=== PATIENT | female | born 1960 | race Caucasian/White ===

== ENCOUNTER 2020-01-31 07:09 | Day surgery (SDC) | payer MEDICAID, SELFPAY ==
[2020-01-24 11:15] VITALS: BMI 33.6
--- NOTE | 2020-01-30 10:32 | P.CONAN_ITS ---
Documented by User: Tonja Rajan 01/30/20 10:37 HPI - Anesthesia Eval Consult details Narrative: 59yo F for colonoscopy PMFSH Past Medical History Medical History Anemia Arthritis Asthma Depression Difficulty swallowing Elevated cholesterol GERD (gastroesophageal reflux disease) Hepatitis History of blood transfusion HIV (human immunodeficiency virus infection) HTN (hypertension) Hx of renal calculi Sleep apnea Surgical History Surgical History Hx of section Hx of cholecystectomy Hx of colonoscopy Hx of dilation and curettage Hx of reduction mammoplasty Hx of tubal ligation Social History Social History Smoking Status: Former smoker Smoking Quit Date: age 39 Use of substances other than those prescribed or required for medical reasons: No Advance Directives Information Provided: No Recently lost weight without trying: No Meds Allergies Allergy/AdvReac Type Severity Reaction Status Date / Time shellfish derived Allergy Unknown HIVES, N/V Unverified 01/04/20 17:01 Home Medications Medication Instructions Recorded Confirmed Type albuterol sulfate 2.5 mg INHALATION Q4-6H PRN 01/24/20 01/24/20 History bisacodyl [Dulcolax (bisacodyl)] 10 mg PO BID 01/24/20 01/24/20 History citalopram 20 mg PO DAILY 01/24/20 01/24/20 History krywxhd-can-dqijr-tenof alafen 1 tab PO QPM 01/24/20 01/24/20 History [Genvoya] fluticasone propionate [Flovent 1 puff INHALATION BID 01/24/20 01/24/20 History HFA] gabapentin 300 mg PO TID 01/24/20 01/24/20 History linaclotide [Linzess] 145 mcg PO QAM 01/24/20 01/24/20 History lisinopril 5 mg PO DAILY 01/24/20 01/24/20 History omeprazole [Prilosec] 20 mg PO DAILY 01/24/20 01/24/20 History rosuvastatin [Crestor] 20 mg PO DAILY 01/24/20 01/24/20 History tizanidine 4 mg PO Q8H PRN 01/24/20 01/24/20 History Exam Exam Date and Time: January 30, 2020 1032 Height,Weight and Vital Signs: Height 5 ft 2 in Weight 83.461 kg Pertinent Lab Results Pertinent Lab Results: Laboratory Tests 08/18/19 08/18/19 11:15 11:15 WBC 4.0 L Hgb 11.4 L Hct 35.2 L Plt Count 176 Sodium 142 Potassium 3.3 Chloride 108 BUN 20 H Creatinine 0.85 Laboratory Tests 08/18/19 11:15 Total Lymphocytes 1326 % CD3 Cells 66 Absolute CD3 Count 871 % CD4 Cells 20 L Absolute CD4 Count 270 L T-Lymph CD4/CD8 Ratio 0.43 L % CD8 Cells 48 H Absolute CD8 Count 634 Assessment and Plan Assessment Anesthesia Assessment: Chart Reviewed Documented by User: Srinivas Chung 01/31/20 09:29 [facility] Past Medical History Medical History Anemia Arthritis Asthma Depression Difficulty swallowing Elevated cholesterol GERD (gastroesophageal reflux disease) Hepatitis History of blood transfusion HIV (human immunodeficiency virus infection) HTN (hypertension) Hx of renal calculi Sleep apnea Surgical History Surgical History Hx of section Hx of cholecystectomy Hx of colonoscopy Hx of dilation and curettage Hx of reduction mammoplasty Hx of tubal ligation Social History Social History Smoking Status: Former smoker Smoking Quit Date: age 39 Use of substances other than those prescribed or required for medical reasons: No Advance Directives Information Provided: No Recently lost weight without trying: No Meds Allergies Allergy/AdvReac Type Severity Reaction Status Date / Time shellfish derived Allergy Unknown HIVES, N/V Unverified 01/04/20 17:01 Home Medications Medication Instructions Recorded Confirmed Type albuterol sulfate 2.5 mg INHALATION Q4-6H PRN 01/24/20 01/24/20 History bisacodyl [Dulcolax (bisacodyl)] 10 mg PO BID 01/24/20 01/24/20 History citalopram 20 mg PO DAILY 01/24/20 01/24/20 History wxciciy-hbo-dmcai-tenof alafen 1 tab PO QPM 01/24/20 01/24/20 History [Genvoya] fluticasone propionate [Flovent 1 puff INHALATION BID 01/24/20 01/24/20 History HFA] gabapentin 300 mg PO TID 01/24/20 01/24/20 History linaclotide [Linzess] 145 mcg PO QAM 01/24/20 01/24/20 History lisinopril 5 mg PO DAILY 01/24/20 01/24/20 History omeprazole [Prilosec] 20 mg PO DAILY 01/24/20 01/24/20 History rosuvastatin [Crestor] 20 mg PO DAILY 01/24/20 01/24/20 History tizanidine 4 mg PO Q8H PRN 01/24/20 01/24/20 History Exam Airway Mallampati Class: II TM Dist: >3cm Neck ROM: Full Loose/Missing/Broken Teeth: Yes Heart: RRR Assessment and Plan Assessment Anesthesia Assessment: Anesthesia Plan Discussed Final Anesthetic Review NPO: Yes ASA Class: II and III Anesthetic Plan Anesthetic Plan: MAC:
[2020-01-31 08:10] VITALS: BP 122/62; PULSE 61; RESP 18; TEMP 36.7; O2SAT 96
[2020-01-31] MEDS: Lactated Ringers 1,000 ML 100 ML IVCONT (08:43)
[2020-01-31] MEDS: Sodium Phosphate,Mono-Dibasic 133 ML ENEMA PR (08:44)
--- NOTE | 2020-01-31 09:20 | MHC.SHP ---
Pre-Procedural Eval Section B Chief Complaint: Adenomatous Polyp of Colon Relevant Family History (Specify if Yes): No Relevant Social History: Other (specify) (ex drug abuse) Present Medications: see Short Stay Collaborative assessment Medical History: Significant History (HIV, Hep C, high cholesterol, HTN, ANISH, asthma, back pain) History of Previous Operations: Relevant previous surgery/procedure and date(s) (cholecystectomy) Allergies: Allergies Allergy/AdvReac Type Severity Reaction Status Date / Time shellfish derived Allergy Unknown HIVES, N/V Unverified 01/04/20 17:01 Review of Systems Sugical H&P ROS: Negative: Constitution, Cardiovascular, Respiratory, Neurological, Psychiatric, Hem-Onc, Allergic/Immunologic, Gastrointestinal, Genitourinary, Musculoskeletal, Integumentary, Endocrine and Eyes/Ears/Nose/Throat Exam Surgical H&P Exam: Normal: HEENT, Normal: Heart, Normal: Lungs, Normal: Extremities, Normal: Abdomen, Normal: Skin and Normal: Neurological Plan Diagnosis/Plan: Unchanged Patient has been examined and remains a candidate for the planned procedure
--- NOTE | 2020-01-31 09:38 | P.BOP_ITS ---
Brief Operative Note Date of procedure: 01/31/20 Pre-op diagnosis: hx of polyps Post-op diagnosis: same Procedure: Operative Information Procedure Description: Colonoscopy COLONOSCOPY Instrument: Olympus variable stiffness pediatric scope 190L Colonoscopy Monitoring: Vital signs and clinical assessment, continuous EKG monitoring, Pulse oximetry, Carbon Dioxide monitoring and blood pressure monitoring were done throughout the procedure. Colon withdrawal time was 20 minutes. Procedure: The patient was placed in the left lateral decubitis position and pre-procedure medications were administered. After a digital rectal examination of the ano-rectum, the video colonoscope was inserted into the rectum and advanced through the colon to the cecum/TI. The colonoscope was slowly withdrawn in a retrograde panoramic fashion and the colon mucosa was carefully examined including a retroflexed view of the rectum. Findings and interventions are described below. Procedure Difficulty: Findings: Terminal Ileum-normal Cecum:normal Ascending Colon: 10 mm sessile polyp removed with cold snare Transverse Colon -normal Descending Colon:normal Sigmoid Colon: 10-12 mm sessile polyp removed with cold snare Rectum: Retroflexion with moderate sized internal hemorrhoids, grade I Anorectum - normal Colon preparation: [place] Bowel Preparation Scale Right colon; 2 Transverse colon: 1 Left colon; 0 (0 = Unprepared colon segment with mucosa not seen due to solid stool that cannot be cleared. 1 = Portion of mucosa of the colon segment seen, but other areas of the colon segment not well seen due to staining, residual stool and/or opaque liquid. 2 = Minor amount of residual staining, small fragments of stool and/or opaque liquid, but mucosa of colon segment seen well. 3 = Entire mucosa of colon segment seen well with no residual staining, small fragments of stool or opaque liquid) Impression and Post Procedure Diagnosis: internal hemorrhoids polyps poor prep Plan: High fiber diet leaflet Avoid straining at stool, epsom salts and sitz bath prn, anusol supps or cream prn Repeat Colonoscopy in 6-12 months due to prep, needs to be complaint with diet next time Above findings were reviewed with the patient and relevant handouts were provided if indicated. Surgeon: Lavern Crouch MD Anesthesia: MAC Disposition: PACU
[2020-01-31 10:17] VITALS: BP 109/60; PULSE 64; RESP 16; TEMP 37.4; O2SAT 96
[2020-01-31 10:31] VITALS: BP 101/50; PULSE 58; RESP 14; O2SAT 95
[2020-01-31 10:46] VITALS: BP 111/60; PULSE 73; RESP 14; TEMP 37.4; O2SAT 98
--- NOTE | 2020-01-31 11:39 | HO.POSTANES ---
Post Anesthesia Evaluation Post Anesthesia Evaluation Vital Signs: Vital Signs Temp Pulse Resp BP Pulse Ox 01/31/20 10:46 99.3 F 73 14 111/60 98 01/31/20 10:31 58 14 101/50 L 95 01/31/20 10:17 99.3 F 64 16 109/60 96 01/31/20 08:10 98.0 F 61 18 122/62 96 Anesthesia: Monitored Mental Status: Awake Pain Control: Satisfactory Nausea/Vomiting: None Hydration: Adequate Anesthesia-Related Issues: No Anes. Related Issues
== END 2020-01-31 11:42 | disposition home or self-care (01) ==
PROVIDERS: PCP Internal Medicine; Visit Provider Internal Medicine Gastroenterology
PROC: 0DJD8ZZ Inspection of Lower Intestinal Tract, Via Natural or Artificial Opening Endoscopic (ICD-10-PCS; CPT 45378; principal; 2020-01-31 09:20)
DX: Z12.11 Encounter for screening for malignant neoplasm of colon (principal); Z86.010 Personal history of colon polyps; D12.2 Benign neoplasm of ascending colon; D12.5 Benign neoplasm of sigmoid colon; K64.0 First degree hemorrhoids; K21.9 Gastro-esophageal reflux disease without esophagitis; I10 Essential (primary) hypertension; B19.20 Unspecified viral hepatitis C without hepatic coma; Z21 Asymptomatic human immunodeficiency virus [HIV] infection status; G47.33 Obstructive sleep apnea (adult) (pediatric); J45.909 Unspecified asthma, uncomplicated; Z87.891 Personal history of nicotine dependence; E78.00 Pure hypercholesterolemia, unspecified; Z90.49 Acquired absence of other specified parts of digestive tract; Z98.51 Tubal ligation status; Z79.51 Long term (current) use of inhaled steroids; Z79.899 Other long term (current) drug therapy; Z91.013 Allergy to seafood
CPT/HCPCS: 45385; 88305

== ENCOUNTER → 2020-02-12 10:30 | Outpatient (BNVA) | payer MEDICAID, SELFPAY | PROVIDERS: PCP Internal Medicine; Referring Provider Internal Medicine; Visit Provider Nurse Practitioner | DX: K63.5 Polyp of colon (principal); K21.9 Gastro-esophageal reflux disease without esophagitis; K59.04 Chronic idiopathic constipation | CPT/HCPCS: 99213 ==

== ENCOUNTER 2020-03-08 08:22 | Outpatient (REF) | payer MEDICAID, SELFPAY ==
--- NOTE | 2020-03-08 08:31 | MM_ITS ---
EXAMINATION: MM SCREENING DIGITAL BREAST TOMOSYNTHESIS, BILATERAL CLINICAL INFORMATION: Screening. Asymptomatic. Prior history breast reduction. The lifetime risk of breast cancer based on the Tyrer-Cuzick Model is 7%. COMPARISON: Mammography: 02/09/2019, 12/01/2017, 11/18/2016, 10/22/2015 TECHNIQUE: Digital breast tomosynthesis is performed in both the craniocaudal and mediolateral oblique views along with computer-aided detection (CAD). Synthesized 2D images are generated from the tomosynthesis. Additional left MLO view is provided. FINDINGS: There are scattered areas of fibroglandular density (ACR BI-RADS breast composition Category b). Parenchymal pattern is similar to prior studies. There is no developing density or interval mass or architectural abnormality. No abnormal calcifications. Some minor scarring is suggested outer breast likely related to the reduction mammoplasty. The axilla and skin contours are unremarkable. No significant changes. MM/MM tomosynthesis screening BI IMPRESSION: No mammographic evidence of malignancy. ASSESSMENT: BI-RADS 2: Benign RECOMMENDATION: Routine annual mammography screening. This patient's information was entered into a reminder system with a target due date for their next mammogram.
== END 2020-03-08 08:23 | disposition home or self-care (01) ==
LOC: HO.MAMMO 08:22
PROVIDERS: PCP Internal Medicine; Visit Provider Internal Medicine
DX: Z12.31 Encounter for screening mammogram for malignant neoplasm of breast (principal)
CPT/HCPCS: 77063; 77067

== ENCOUNTER 2020-04-24 10:21 | Outpatient (REF) | payer MEDICAID, SELFPAY ==
[2020-04-24 11:04] LABS: MANUAL DIFF FLAG NO
[2020-04-24 11:13] LABS: Basophils Percent Auto 0.2 % (0-2); Eosinophils Absolute Auto 0.1 X10*3/uL (0.0-0.4); Hematocrit 34.2 % (37-47); Hemoglobin 10.7 g/dl (12.0-16.0); Imm Gran Abs Auto 0.01 X10*3/uL (0.00-0.03); Imm Gran Pct Auto 0.2 % (0.0-0.4); Lymphocytes Absolute Auto 1.7 X10*3/uL (1.2-4.9); Lymphocytes Percent Auto 35.5 % (20-40); Mean Corpuscular HGB Conc 31.3 g/dl (31.0-35.0); Mean Corpuscular Hemoglobin 28.2 pg (27.0-33.0); Mean Platelet Volume 11.3 fL (9.4-12.3); Monocytes Absolute Auto 0.4 X10*3/uL (0.1-1.2); Monocytes Percent Auto 8.2 % (2-11); Neutrophils Absolute Auto 2.5 X10*3/uL (2.0-8.3); Neutrophils Percent Auto 52.9 % (45-73); Platelet Count 173 X10*3/uL (160-400); Red Cell Distribution Width 12.5 % (11.0-16.0); White Blood Count 4.7 X10*3/uL (4.8-10.8)
[2020-04-24 12:00] LABS: Alanine Aminotransferase 10 U/L (0-31); Albumin Level 3.7 g/dL (3.5-5.0); Alkaline Phosphatase 68 U/L (39-117); Anion Gap 12 (12-20); Aspartate Amino Transferase 17 U/L (5-31); Bilirubin Total 0.3 mg/dL (0.0-1.0); Blood Urea Nitrogen 19 mg/dL (9-16); Calcium 8.8 mg/dL (8.4-10.2); Carbon Dioxide 28 mmol/L (22-29); Chloride 106 mmol/L (96-108); Cholesterol 152 mg/dL; Estimated Glomerular Filt Rate 58; Glucose Random 78 mg/dL (60-115); HDL Cholesterol 56 mg/dL; LDL Cholesterol Calculated 72 mg/dl; Potassium 4.6 mmol/l (3.3-5.1); Sodium 141 mmol/L (135-145); Total Protein 7.5 g/dL (6.5-8.0); Triglycerides 122 mg/dL
[2020-04-24 12:07] LABS: Thyroid Stimulating Hormone 2.13 uIU/mL (0.32-4.0)
== END 2020-04-24 10:22 | disposition home or self-care (01) ==
LOC: HO.LAB 10:21
PROVIDERS: PCP Internal Medicine; Visit Provider Internal Medicine
DX: Z00.00 Encounter for general adult medical examination without abnormal findings (principal); E78.00 Pure hypercholesterolemia, unspecified; J45.909 Unspecified asthma, uncomplicated; K62.89 Other specified diseases of anus and rectum; R10.2 Pelvic and perineal pain
CPT/HCPCS: 36415; 80053; 80061; 84443; 85025; 87086; 87088; 87186

== ENCOUNTER 2020-06-12 08:33 | Outpatient (REF) | payer MEDICAID, SELFPAY ==
[2020-06-12 09:41] LABS: Rheumatoid Factor < 15.0 IU/mL (<15.0)
[2020-06-12 10:21] LABS: Erythrocyte Sedimentation Rate 26 MM/HR (0-20)
[2020-06-13 13:26] LABS: Cyclic Citrullinated Peptide <16 UNITS
[2020-06-13 15:01] LABS: Anti Nuclear Antibody Screen NEGATIVE (NEGATIVE)
[2020-06-19 12:22] LABS: HCV Log PCR <1.18 NOT DETECTED; HepC Viral Load <15 NOT DETECTED
== END 2020-06-12 08:34 | disposition home or self-care (01) ==
LOC: HO.LAB 08:33
PROVIDERS: PCP Internal Medicine; Visit Provider Internal Medicine
DX: B18.2 Chronic viral hepatitis C (principal); M25.50 Pain in unspecified joint; M79.10 Myalgia, unspecified site
CPT/HCPCS: 36415; 82550; 85652; 86038; 86039; 86200; 86431; 87522

== ENCOUNTER 2020-07-24 12:18 | Outpatient (REF) | payer MEDICAID, SELFPAY ==
--- NOTE | ~2020-07-24 | XR_ITS ---
EXAMINATION: BILATERAL HAND X-RAY CLINICAL INFORMATION: Osteoarthritis COMPARISON: None TECHNIQUE: 3 views of each hand FINDINGS: Bone alignment is normal. No fracture or dislocation is seen. There is mild arthritis at the first ASSISTED joints with small osteophytes. Joint spaces are otherwise normal. Soft tissues are normal. XR/XR hand LT min 3V IMPRESSION: Mild bilateral osteoarthritis at the first ASSISTED joints.
--- NOTE | ~2020-07-24 | XR_ITS ---
EXAMINATION: BILATERAL HAND X-RAY CLINICAL INFORMATION: Osteoarthritis COMPARISON: None TECHNIQUE: 3 views of each hand FINDINGS: Bone alignment is normal. No fracture or dislocation is seen. There is mild arthritis at the first FCI joints with small osteophytes. Joint spaces are otherwise normal. Soft tissues are normal. XR/XR hand RT min 3V IMPRESSION: Mild bilateral osteoarthritis at the first FCI joints.
== END 2020-07-24 12:19 | disposition home or self-care (01) ==
LOC: HO.XRAY 12:18
PROVIDERS: PCP Internal Medicine; Visit Provider Student in an Organized Health Care Education/Training Program
DX: M19.042 Primary osteoarthritis, left hand (principal); M19.041 Primary osteoarthritis, right hand
CPT/HCPCS: 73130; 99202

== ENCOUNTER 2020-10-08 08:41 | Outpatient (REF) | payer MEDICAID, SELFPAY ==
[2020-10-08 09:23] LABS: MANUAL DIFF FLAG NO
[2020-10-08 09:40] LABS: Basophils Percent Auto 0.2 % (0-2); Eosinophils Absolute Auto 0.1 X10*3/uL (0.0-0.4); Eosinophils Percent Auto 1.6 % (0-4); Hematocrit 40.1 % (37-47); Hemoglobin 12.9 g/dl (12.0-16.0); Imm Gran Abs Auto 0.02 X10*3/uL (0.00-0.03); Imm Gran Pct Auto 0.5 % (0.0-0.4); Lymphocytes Absolute Auto 1.4 X10*3/uL (1.2-4.9); Lymphocytes Percent Auto 30.8 % (20-40); Mean Corpuscular HGB Conc 32.2 g/dl (31.0-35.0); Mean Corpuscular Hemoglobin 28.5 pg (27.0-33.0); Mean Corpuscular Volume 88.5 fL (80-98); Monocytes Absolute Auto 0.2 X10*3/uL (0.1-1.2); Monocytes Percent Auto 4.8 % (2-11); Neutrophils Absolute Auto 2.7 X10*3/uL (2.0-8.3); Neutrophils Percent Auto 62.1 % (45-73); Platelet Count 197 X10*3/uL (160-400); Red Blood Count 4.53 X10*6/uL (4.20-5.50); Red Cell Distribution Width 14.1 % (11.0-16.0); White Blood Count 4.4 X10*3/uL (4.8-10.8)
[2020-10-08 10:11] LABS: Alanine Aminotransferase 17 U/L (0-31); Albumin Level 3.9 g/dL (3.5-5.0); Alkaline Phosphatase 79 U/L (39-117); Anion Gap 14 (12-20); Aspartate Amino Transferase 21 U/L (5-31); Bilirubin Total 0.4 mg/dL (0.0-1.0); Blood Urea Nitrogen 26 mg/dL (9-16); Calcium 9.5 mg/dL (8.4-10.2); Carbon Dioxide 24 mmol/L (22-29); Chloride 105 mmol/L (96-108); Cholesterol 218 mg/dL; Estimated Glomerular Filt Rate 50; Glucose Random 135 mg/dL (60-115); HDL Cholesterol 59 mg/dL; LDL Cholesterol Calculated 133 mg/dl; Potassium 4.2 mmol/L (3.3-5.1); Sodium 139 mmol/L (135-145); Total Protein 7.8 g/dL (6.5-8.0); Triglycerides 133 mg/dL
== END 2020-10-08 08:42 | disposition home or self-care (01) ==
LOC: HO.LAB 08:41
PROVIDERS: PCP Internal Medicine; Visit Provider Internal Medicine
DX: E78.00 Pure hypercholesterolemia, unspecified (principal); F33.42 Major depressive disorder, recurrent, in full remission; I10 Essential (primary) hypertension; R30.0 Dysuria
CPT/HCPCS: 36415; 80053; 80061; 85025; 87086; 87088; 87186

== ENCOUNTER 2020-10-08 09:20 | Emergency (ER) | payer MEDICAID, SELFPAY ==
[2020-10-08 09:26] VITALS: BP 132/73; PULSE 69; RESP 16; TEMP 36.7; O2SAT 98; BMI 32.9
--- NOTE | 2020-10-08 12:14 | ECG_ITS ---
Test Reason : ABDOMINAL PAIN Blood Pressure : / mmHG Vent. Rate : 055 BPM Atrial Rate : 055 BPM P-R Int : 172 ms QRS Dur : 088 ms QT Int : 440 ms P-R-T Axes : 057 -45 045 degrees QTc Int : 420 ms Sinus bradycardia Left anterior fascicular block Abnormal ECG When compared with ECG of 14-MAY-2017 11:35, No significant change was found Referred By: Rhiannon Pedraza Electronically Signed By:Dain Bill
--- NOTE | 2020-10-08 12:14 | ED_ITS ---
HPI - Abdominal Pain General Chief Complaint: Abdominal Pain Stated Complaint: abd pain Time Seen by Provider: 10/08/20 12:04 Source: patient Mode of arrival: ambulatory Limitations: no limitations History of Present Illness HPI narrative: 60 y/o female with history of HIV on HAART with undetectable vital load, constipation, GERD, OA, vaginal bleeding s/p recent biopsy who presents to the ER with lower abdominal pain, suprapubic pain and dysuria for the last 4 days. She has had chills at home and felt unwell. Her appetite has been poor but she has not had any N/V/D. Normal BM today. No vaginal bleeding or discharge. Not currently sexually active. No blood in her urine and no back pain. She reports increased frequency wtih dribbling. Symptoms are similar to when she previously had a UTI. She also has epigastric burning that radiates up into her chest. She no SOB. MD elicited complaint: abdominal pain Pertinent past history: constipation Onset (ago): day(s) (4) Pain Consistency: constant Location: suprapubic Severity: moderate Quality: aching and burning Radiation: none Migration to: no migration Exacerbating factors: nothing Relieving factors: nothing Context: history of similar episodes Associated symptoms: chills and dysuria Related Data Home Medications Medication Instructions Recorded Confirmed albuterol sulfate 2.5 mg INHALATION Q4-6H PRN 01/24/20 01/24/20 bisacodyl [Dulcolax (bisacodyl)] 10 mg PO BID 01/24/20 01/24/20 citalopram 20 mg PO DAILY 01/24/20 01/24/20 jrpjlmt-uhm-ejpgy-tenof alafen 1 tab PO QPM 01/24/20 01/24/20 [Genvoya] fluticasone propionate [Flovent 1 puff INHALATION BID 01/24/20 01/24/20 HFA] gabapentin 300 mg PO TID 01/24/20 01/24/20 linaclotide [Linzess] 145 mcg PO QAM 01/24/20 01/24/20 lisinopril 5 mg PO DAILY 01/24/20 01/24/20 omeprazole [Prilosec] 20 mg PO DAILY 01/24/20 01/24/20 rosuvastatin [Crestor] 20 mg PO DAILY 01/24/20 01/24/20 tizanidine 4 mg PO Q8H PRN 01/24/20 01/24/20 Previous Rx's Medication Instructions Recorded cefuroxime axetil 250 mg PO BID #14 tab 10/08/20 phenazopyridine [Pyridium] 100 mg PO TID PRN #5 tab 10/08/20 Allergies Allergy/AdvReac Type Severity Reaction Status Date / Time shellfish derived Allergy Intermediate HIVES, N/V Verified 07/24/20 12:36 Review of Systems Review of Systems Constitutional: No Fever, No Chills ENT/Mouth: No sore throat, No Rhinorrhea, No Swallowing Difficulty Cardiovascular: + Chest Pain, No SOB, No Orthopnea, No Edema Respiratory: No Cough, No Sputum, No Wheezing, No dyspnea Gastrointestinal: No Nausea, No Vomiting, No Diarrhea, + abdominal Pain Genitourinary: + Dysuria, + Urinary Frequency, No Hematuria Musculoskeletal: No joint pain, No Myalgias Skin: No Skin Lesions, No rash Neuro: + Weakness, No Numbness, No Dizziness, No Headache Psych: No Anxiety/Panic, No Depression Heme/Lymph: No Bruising, No Lymphadenopathy Endocrine: No Polyuria, No Polydipsia Physical Exam Vital Signs: Vital Signs: Last Vital Signs Temp 97.8 F 10/08/20 14:28 Pulse 58 10/08/20 14:28 Resp 14 10/08/20 14:28 BP 104/58 L 10/08/20 14:28 Pulse Ox 100 10/08/20 14:28 Body Mass Index 32.9 Appearance: Alert. Oriented X3. No acute distress. Eyes: Pupils equal, round and reactive to light. ENT: Pharynx normal. Neck: Normal inspection. Neck supple. CVS: Normal heart rate and rhythm. Pulses normal. Respiratory: No respiratory distress. Breath sounds normal. Abdomen: Soft with suprapubic tenderness, no reboudn or guarding. +BS x4 Skin: Skin warm and dry. Normal skin color. Normal skin turgor. No rashes. Extremities: No lower extremity edema. Neuro: Oriented X 3. No motor deficit. No sensory deficit. Course Course Course Narrative: 60 y/o female presenting with signs and symptoms of UTI without fever, back pain or vomiting. Doubt pyelonephritis. She appears well, non-toxic with normal VS. Will get lab workup and UA. Hold off on imaging for now. Given GI cocktail for acid reflux. Doubt cardiac etiology of her epiastric/chest pain. Will reassess Reevaluation(s) Reevaluation #1: Labs are normal. UA ++ for infection. Will treat with Ceftin and Pyridium. She is stable for discharge home with stated regimen and outpatient follow up. She is agreeable with plan and return to the ER if symptoms worsen. MDM - Abdominal Pain Medical Records Attestation: I reviewed the patient's medical records. Lab Data Attestation: I reviewed the patient's lab results. Result diagrams: 10/08/20 13:00 10/08/20 13:00 Labs: Lab Results 10/08/20 10/08/20 10/08/20 Range/Units 13:00 13:00 13:00 WBC 4.8 (4.8-10.8) X10*3/uL RBC 4.52 (4.20-5.50) X10*6/uL Hgb 12.8 (12.0-16.0) g/dl Hct 39.5 (37-47) % MCV 87.4 (80-98) fL MCH 28.3 (27.0-33.0) pg MCHC 32.4 (31.0-35.0) g/dl RDW 14.1 (11.0-16.0) % Plt Count 186 (160-400) X10*3/uL MPV 10.8 (9.4-12.3) fL Immature Gran % (Auto) 0.4 (0.0-0.4) % Neut % (Auto) 61.7 (45-73) % Lymph % (Auto) 28.2 (20-40) % Amelia % (Auto) 8.4 (2-11) % Eos % (Auto) 1.1 (0-4) % Baso % (Auto) 0.2 (0-2) % Lymph # (Auto) 1.3 (1.2-4.9) X10*3/uL Amelia # (Auto) 0.4 (0.1-1.2) X10*3/uL Eos # (Auto) 0.1 (0.0-0.4) X10*3/uL Baso # (Auto) 0.0 (0.0-0.2) X10*3/uL Abs Immat Gran (auto) 0.02 (0.00-0.03) X10*3/uL Absolute Neuts (auto) 2.9 (2.0-8.3) X10*3/uL Absolute Nucleated RBC 0.000 (0.0-0.012) X10*3/uL Nucleated RBC % (auto) 0.0 (0.0-0.2) /100WBC Sodium 139 (135-145) mmol/L Potassium 4.7 (3.3-5.1) mmol/L Chloride 105 (96-108) mmol/L Carbon Dioxide 28 (22-29) mmol/L Anion Gap 11 L (12-20) BUN 25 H (9-16) mg/dL Creatinine 0.97 (0.5-1.4) mg/dL Estim Creat Clear Calc 64.3 Estimated GFR 59 Random Glucose 85 D (60-115) mg/dL Calcium 9.3 (8.4-10.2) mg/dL Troponin I High Sens < 3.5 (<3.5-17.0) ng/L Urine Color Urine Appearance Urine pH (5.0-8.0) Ur Specific [place] (1.005-1.025) Urine Protein (NEG-TRACE) MG/DL Urine Glucose (UA) (NEG) MG/DL Urine Ketones (NEG) MG/DL Urine Blood (NEG) Urine Nitrite (NEG) Ur Leukocyte Esterase (NEG) Urine RBC (0) /HPF Urine WBC (0-4) /HPF Ur Squamous Epith Cells /LPF Urine Bacteria /LPF 10/08/20 Range/Units 13:03 WBC (4.8-10.8) X10*3/uL RBC (4.20-5.50) X10*6/uL Hgb (12.0-16.0) g/dl Hct (37-47) % MCV (80-98) fL MCH (27.0-33.0) pg MCHC (31.0-35.0) g/dl RDW (11.0-16.0) % Plt Count (160-400) X10*3/uL MPV (9.4-12.3) fL Immature Gran % (Auto) (0.0-0.4) % Neut % (Auto) (45-73) % Lymph % (Auto) (20-40) % Amelia % (Auto) (2-11) % Eos % (Auto) (0-4) % Baso % (Auto) (0-2) % Lymph # (Auto) (1.2-4.9) X10*3/uL Amelia # (Auto) (0.1-1.2) X10*3/uL Eos # (Auto) (0.0-0.4) X10*3/uL Baso # (Auto) (0.0-0.2) X10*3/uL Abs Immat Gran (auto) (0.00-0.03) X10*3/uL Absolute Neuts (auto) (2.0-8.3) X10*3/uL Absolute Nucleated RBC (0.0-0.012) X10*3/uL Nucleated RBC % (auto) (0.0-0.2) /100WBC Sodium (135-145) mmol/L Potassium (3.3-5.1) mmol/L Chloride (96-108) mmol/L Carbon Dioxide (22-29) mmol/L Anion Gap (12-20) BUN (9-16) mg/dL Creatinine (0.5-1.4) mg/dL Estim Creat Clear Calc Estimated GFR Random Glucose (60-115) mg/dL Calcium (8.4-10.2) mg/dL Troponin I High Sens (<3.5-17.0) ng/L Urine Color YELLOW Urine Appearance CLOUDY Urine pH 6.0 (5.0-8.0) Ur Specific [place] 1.010 (1.005-1.025) Urine Protein TRACE (NEG-TRACE) MG/DL Urine Glucose (UA) NEG (NEG) MG/DL Urine Ketones NEG (NEG) MG/DL Urine Blood TRACE (NEG) Urine Nitrite NEG (NEG) Ur Leukocyte Esterase 3+ H (NEG) Urine RBC 1-4 (0) /HPF Urine WBC 15-29 H (0-4) /HPF Ur Squamous Epith Cells 3+ /LPF Urine Bacteria 2+ /LPF ECG Data Attestation: I personally reviewed and interpreted this ECG as follows: ECG interpretation date: 10/08/20 ECG interpretation time: 15:05 Prior ECG tracings: not available for review Interpretation: sinus bradycardia, left anterior fascicular block, HR 55 bpm, no ST segment elevations Critical Care Time Critical Care Time Critical Care Time: No Discharge Plan Discharge Clinical Impression: Acute UTI Patient Disposition: Home, Self-Care Instructions: Urinary Tract Infection in Women (ED) Additional Instructions: Your lab workup today was normal. Your urine test showed infection and you are being started on antibiotic for this. Do not have an sexual relations until all of your symptoms are gone and you are all done with antibiotic course. Follow up with your doctor this week. If you have worsening symptoms or develop fevers, vomiting or severe back pain come back to the ER for further evaluation. Tu examen de laboratorio de hoy fue normal. Jaeger an?lisis de orina mostr? infecci?n y est? comenzando a yasir antibi?ticos para esto. No tenga relaciones sexuales hasta que todos gloria s?ntomas hayan desaparecido y haya terminado con el tratamiento con antibi?ticos. Sae un seguimiento con jaeger m?dico esta semana. Si tiene s?ntomas que empeoran o tiene fiebre, v?mitos o dolor de espalda mony, regrese a la montserrat de emergencias para astrid evaluaci?n adicional. Prescriptions: New cefuroxime axetil 250 mg tablet 250 mg PO BID Qty: 14 RF: 0 phenazopyridine [Pyridium] 100 mg tablet 100 mg PO TID PRN (Reason: pain) Qty: 5 RF: 0 No Action albuterol sulfate 2.5 mg /3 mL (0.083 %) Solution For Nebulization 2.5 mg INHALATION Q4-6H PRN (Reason: Shortness Of Breath) RF: 0 citalopram 20 mg Tablet 20 mg PO DAILY RF: 0 omeprazole [Prilosec] 20 mg Capsule,Delayed Release(Dr/Ec) 20 mg PO DAILY RF: 0 bisacodyl [Dulcolax (bisacodyl)] 5 mg Tablet,Delayed Release (Dr/Ec) 10 mg PO BID RF: 0 lisinopril 5 mg Tablet 5 mg PO DAILY RF: 0 Flovent HFA 110 mcg/actuation Hfa Aerosol Inhaler 1 puff INHALATION BID RF: 0 rosuvastatin [Crestor] 20 mg Tablet 20 mg PO DAILY RF: 0 gabapentin 300 mg Tablet 300 mg PO TID RF: 0 tizanidine 4 mg Capsule 4 mg PO Q8H PRN (Reason: Muscle Spasm) RF: 0 Linzess 145 mcg Capsule 145 mcg PO QAM RF: 0 Genvoya [phone] mg Tablet 1 tab PO QPM RF: 0 PMFSH Past Medical History Attestation statement: The following information was validated with the patient. Medical History Anemia Arthritis Asthma Depression Difficulty swallowing Elevated cholesterol Hepatitis History of blood transfusion HIV (human immunodeficiency virus infection) HTN (hypertension) Hx of renal calculi Sleep apnea Surgical History Hx of section Hx of cholecystectomy Hx of colonoscopy Hx of dilation and curettage Hx of reduction mammoplasty Hx of tubal ligation Family History Family History Mother Breast cancer Father Heart problem Sister Bone cancer Family/Other Diabetes Social History Social History Alcohol intake: current Alcohol intake frequency: does not drink Advance Directives: Yes Advance Directives Information Provided: Yes Advance Directives on File: No Patient : No
[2020-10-08 12:51] VITALS: BP 122/57; PULSE 58; RESP 17; TEMP 36.3; O2SAT 100
[2020-10-08 13:10] LABS: MANUAL DIFF FLAG NO
[2020-10-08 13:17] LABS: Basophils Percent Auto 0.2 % (0-2); Eosinophils Absolute Auto 0.1 X10*3/uL (0.0-0.4); Eosinophils Percent Auto 1.1 % (0-4); Hematocrit 39.5 % (37-47); Hemoglobin 12.8 g/dl (12.0-16.0); Imm Gran Abs Auto 0.02 X10*3/uL (0.00-0.03); Imm Gran Pct Auto 0.4 % (0.0-0.4); Lymphocytes Absolute Auto 1.3 X10*3/uL (1.2-4.9); Lymphocytes Percent Auto 28.2 % (20-40); Mean Corpuscular HGB Conc 32.4 g/dl (31.0-35.0); Mean Corpuscular Hemoglobin 28.3 pg (27.0-33.0); Mean Corpuscular Volume 87.4 fL (80-98); Mean Platelet Volume 10.8 fL (9.4-12.3); Monocytes Absolute Auto 0.4 X10*3/uL (0.1-1.2); Monocytes Percent Auto 8.4 % (2-11); Neutrophils Absolute Auto 2.9 X10*3/uL (2.0-8.3); Neutrophils Percent Auto 61.7 % (45-73); Platelet Count 186 X10*3/uL (160-400); Red Blood Count 4.52 X10*6/uL (4.20-5.50); Red Cell Distribution Width 14.1 % (11.0-16.0); White Blood Count 4.8 X10*3/uL (4.8-10.8)
[2020-10-08 13:17] LABS: Glucose Urine UA NEG (NEG); Leukocyte Esterase Urine 3+ (NEG); Nitrite Urine NEG (NEG); UACC Culture Trigger YES; Urine Blood TRACE (NEG); Urine Ketones NEG (NEG); Urine Protein TRACE MG/DL (NEG-TRACE)
[2020-10-08 13:20] LABS: Appearance Urine CLOUDY; Color Urine YELLOW
[2020-10-08] MEDS: Lidocaine HCl Viscous 2 % 15 ML SOLUTION MUCOUS MEM (13:20)
[2020-10-08] MEDS: Magnesium Hydrox/Alum Hydrox 30 ML ORAL.SUSP PO (13:20)
[2020-10-08] MEDS: Omeprazole 40 MG CAPSULE.DR PO (13:20)
[2020-10-08 13:32] LABS: Bacteria Urine 2+ /LPF; Squamous Epithelial Cell Urine 3+ /LPF; UACC CULT YES
[2020-10-08 13:39] LABS: Anion Gap 11 (12-20); Blood Urea Nitrogen 25 mg/dL (9-16); Calcium 9.3 mg/dL (8.4-10.2); Carbon Dioxide 28 mmol/L (22-29); Chloride 105 mmol/L (96-108); Creatinine Clr Calc Pharmacy 64.3; Estimated Glomerular Filt Rate 59; Glucose Random 85 mg/dL (60-115); Potassium 4.7 mmol/L (3.3-5.1); Sodium 139 mmol/L (135-145)
[2020-10-08 13:48] LABS: Troponin-I High Sensitivity < 3.5 ng/L (<3.5-17.0)
[2020-10-08 14:28] VITALS: BP 104/58; PULSE 58; RESP 14; TEMP 36.6; O2SAT 100
[2020-10-08] MEDS: Phenazopyridine HCL 100 MG TABLET PO (15:24)
== END 2020-10-08 15:33 | disposition home or self-care (01) ==
PROVIDERS: Physician Assistant; Emergency Provider Emergency Medicine Emergency Medical Services; PCP Internal Medicine
DX: N39.0 Urinary tract infection, site not specified (principal); R07.9 Chest pain, unspecified; J45.909 Unspecified asthma, uncomplicated; Z21 Asymptomatic human immunodeficiency virus [HIV] infection status; I10 Essential (primary) hypertension; Z79.899 Other long term (current) drug therapy
CPT/HCPCS: 36415; 80048; 81001; 84484; 85025; 93005; 99283; 99285

== ENCOUNTER → 2020-10-24 09:00 | Outpatient (BNVA) | payer MEDICAID, SELFPAY | PROVIDERS: PCP Internal Medicine; Visit Provider Nurse Practitioner ==

== ENCOUNTER 2020-12-03 10:36 | Day surgery (SDC) | payer MEDICAID, SELFPAY ==
[2020-11-26 10:56] VITALS: BMI 33.6
--- NOTE | 2020-12-02 10:27 | P.CONAN_ITS ---
Documented by User: Tonja Rajan NP 12/02/20 10:28 HPI - Anesthesia Eval Consult details Narrative: 60yo F for Colonoscopy Last colo 01/2020 with [facility] Active Problems Active Problems: All Active Problems (Updated 10/09/20 @ 00:01 by Mary Grace Villalta) GERD (gastroesophageal reflux disease) (Acute) Serrated polyp of colon (Acute) Chronic idiopathic constipation (Acute) Primary osteoarthritis of hands, bilateral (Acute) Hx of colonoscopy (Acute) Past Medical History Medical History Anemia Arthritis Asthma Depression Difficulty swallowing Elevated cholesterol Hepatitis History of blood transfusion HIV (human immunodeficiency virus infection) HTN (hypertension) Hx of renal calculi Sleep apnea Family History Family History Mother Breast cancer Father Heart problem Sister Bone cancer Family/Other Diabetes Surgical History Surgical History Hx of section Hx of cholecystectomy Hx of colonoscopy Hx of dilation and curettage Hx of reduction mammoplasty Hx of tubal ligation Social History Social History Alcohol intake: current Alcohol intake frequency: does not drink Patient Tobacco Use Status: Never used Tobacco Second Hand Smoke Exposure: No Use of substances other than those prescribed or required for medical reasons: No Are you DNR?: No Advance Directives: No Advance Directives Information Provided: Yes Advance Directives on File: No Meds Allergies Allergy/AdvReac Type Severity Reaction Status Date / Time shellfish derived Allergy Intermediate HIVES, N/V Verified 10/24/20 09:01 Home Medications Medication Instructions Recorded Confirmed Last Taken Type albuterol sulfate 2.5 mg INHALATION Q4-6H PRN 01/24/20 01/24/20 Unknown History bisacodyl 5 mg tablet,delayed 10 mg PO BID 01/24/20 01/24/20 Unknown History release (Dulcolax (bisacodyl)) citalopram 20 mg tablet 20 mg PO DAILY 01/24/20 01/24/20 Unknown History elviteg 150 mg-cob 150 mg-emtricit 1 tab PO QPM 01/24/20 01/24/20 Unknown History 200 mg-tenofo alafenam 10 mg tablet (Genvoya) fluticasone propionate 110 1 puff INHALATION BID 01/24/20 01/24/20 Unknown History mcg/actuation HFA aerosol inhaler (Flovent HFA) gabapentin 300 mg tablet 300 mg PO TID 01/24/20 01/24/20 Unknown History linaclotide 145 mcg capsule 145 mcg PO QAM 01/24/20 01/24/20 Unknown History (Linzess) lisinopril 5 mg tablet 5 mg PO DAILY 01/24/20 01/24/20 Unknown History omeprazole 20 mg capsule,delayed 20 mg PO DAILY 01/24/20 01/24/20 Unknown History release rosuvastatin 20 mg tablet (Crestor) 20 mg PO DAILY 01/24/20 01/24/20 Unknown History tizanidine 4 mg capsule 4 mg PO Q8H PRN 01/24/20 01/24/20 Unknown History Exam Exam Date and Time: December 02, 2020 1027 Height,Weight and Vital Signs: Height 5 ft 2 in Weight 83.461 kg Pertinent Lab Results Pertinent Lab Results: Laboratory Tests 08/18/19 10/08/20 10/08/20 11:15 13:00 13:00 WBC 4.0 L 4.8 Hgb 11.4 L 12.8 Hct 35.2 L 39.5 Plt Count 176 186 Sodium 139 Potassium 4.7 Chloride 105 Carbon Dioxide 28 BUN 25 H Creatinine 0.97 Narrative Narrative: EKG 09/2020 Vent. Rate : 055 BPM ? ? Atrial Rate : 055 BPM ?? P-R Int : 172 ms? QRS Dur : 088 ms ? ? QT Int : 440 ms ? ? ? P-R-T Axes : 057 -45 045 degrees ?? QTc Int : 420 ms ? Sinus bradycardia Left anterior fascicular block Abnormal ECG When compared with ECG of 14-MAY-2017 11:35, No significant change was found Assessment and Plan Assessment Anesthesia Assessment: Chart Reviewed Documented by User: Millie Telles MD 12/03/20 11:45 PMFSH Past Medical History Medical History Anemia Arthritis Asthma Depression Difficulty swallowing Elevated cholesterol Hepatitis History of blood transfusion HIV (human immunodeficiency virus infection) HTN (hypertension) Hx of renal calculi Sleep apnea Functional capacity: independent ambulation Patient : No Family History Family History Mother Breast cancer Father Heart problem Sister Bone cancer Family/Other Diabetes Family history of problems with anesthesia: No Surgical History Surgical History Hx of section Hx of cholecystectomy Hx of colonoscopy Hx of dilation and curettage Hx of reduction mammoplasty Hx of tubal ligation History of Problems with Anesthesia: No Social History Social History Alcohol intake: current Alcohol intake frequency: does not drink Patient Tobacco Use Status: Never used Tobacco Second Hand Smoke Exposure: No Use of substances other than those prescribed or required for medical reasons: No Are you DNR?: No Advance Directives: No Advance Directives Information Provided: Yes Advance Directives on File: No Meds Allergies Allergy/AdvReac Type Severity Reaction Status Date / Time shellfish derived Allergy Intermediate HIVES, N/V Verified 10/24/20 09:01 Home Medications Medication Instructions Recorded Confirmed Last Taken Type albuterol sulfate 2.5 mg INHALATION Q4-6H PRN 01/24/20 01/24/20 Unknown History bisacodyl 5 mg tablet,delayed 10 mg PO BID 01/24/20 01/24/20 Unknown History release (Dulcolax (bisacodyl)) citalopram 20 mg tablet 20 mg PO DAILY 01/24/20 01/24/20 Unknown History elviteg 150 mg-cob 150 mg-emtricit 1 tab PO QPM 01/24/20 01/24/20 Unknown History 200 mg-tenofo alafenam 10 mg tablet (Genvoya) fluticasone propionate 110 1 puff INHALATION BID 01/24/20 01/24/20 Unknown History mcg/actuation HFA aerosol inhaler (Flovent HFA) gabapentin 300 mg tablet 300 mg PO TID 01/24/20 01/24/20 Unknown History linaclotide 145 mcg capsule 145 mcg PO QAM 01/24/20 01/24/20 Unknown History (Linzess) lisinopril 5 mg tablet 5 mg PO DAILY 01/24/20 01/24/20 Unknown History omeprazole 20 mg capsule,delayed 20 mg PO DAILY 01/24/20 01/24/20 Unknown History release rosuvastatin 20 mg tablet (Crestor) 20 mg PO DAILY 01/24/20 01/24/20 Unknown History tizanidine 4 mg capsule 4 mg PO Q8H PRN 01/24/20 01/24/20 Unknown History Exam Airway Mallampati Class: III TM Dist: >3cm Neck ROM: Full Heart: RRR Lungs: CTA Assessment and Plan Final Anesthetic Review Family History of Problems with Anesthesia: No History of Problems with Anesthesia: No
[2020-12-03 11:06] VITALS: BP 145/92; PULSE 73; RESP 18; TEMP 36.1; O2SAT 99
[2020-12-03] MEDS: Lactated Ringers 1,000 ML 100 ML IVCONT (11:21)
--- NOTE | 2020-12-03 12:12 | MHC.SHP ---
Pre-Procedural Eval Section A Date of Service: 12/03/20 The patient is an INPATIENT: No The History & Physical has been completed within 30 days and I have reviewed it.: No Section B Chief Complaint: Colon cancer screening, hx of colon polyps Details of Present Illness: Colon cancer screening, history of colon polyps, chronic constipation Relevant Family History (Specify if Yes): Yes Present Medications: see Short Stay Collaborative assessment Medical History: Significant History (Anemia Arthritis Asthma Depression Difficulty swallowing Elevated cholesterol Hepatitis History of blood transfusion HIV (human immunodeficiency virus infection) HTN (hypertension) Hx of renal calculi Sleep apnea) History of Previous Operations: Relevant previous surgery/procedure and date(s) (Hx of section Hx of cholecystectomy Hx of colonoscopy Hx of dilation and curettage Hx of reduction mammoplasty Hx of tubal ligation) Allergies: Allergies Allergy/AdvReac Type Severity Reaction Status Date / Time shellfish derived Allergy Intermediate HIVES, N/V Verified 10/24/20 09:01 Review of Systems Sugical H&P ROS: Negative: Constitution, Cardiovascular, Respiratory and Gastrointestinal Exam Surgical H&P Exam: Normal: Heart, Normal: Lungs, Normal: Extremities and Normal: Abdomen Plan Diagnosis/Plan: Unchanged I have reviewed the history and physical and performed a pertinent physical examination on my patient. No changes have occurred unless specified.
--- NOTE | 2020-12-03 12:46 | PM.OP ---
Brief Operative Note Date of Service: 12/03/20 Pre-op diagnosis: Colon cancer screening, history of colon polyps Post-op diagnosis: other (Colon polyp, diverticulosis, hemorrhoids) Procedure: COLONOSCOPY TILL CECUM WITH SNARE POLYPECTOMY Consent: Indications for the procedure and potential complications of bleeding, perforation, reaction to medications and missed diagnosis were discussed with the patient and informed consent was obtained. Instrument: Olympus PCF H 190 L variable stiffness pediatric colonoscope Monitoring: Vital signs and clinical assessment, intermittent blood pressure monitoring, continuous EKG monitoring, Pulse oximetry and Carbon Dioxide monitoring were done throughout the procedure. Colon withdrawl time was 16 minutes. Procedure: The patient was placed in the left lateral decubitis position and pre-procedure medications were administered. After a digital rectal examination of the ano-rectum, the video colonoscope was inserted into the rectum and advanced through the colon to the cecum. The colonoscope was slowly withdrawn in a retrograde panoramic fashion and the colon mucosa was carefully examined including a retroflexed view of the rectum. Findings and interventions are described below. Procedure Difficulty: Without difficulty Findings: Terminal Ileum: Not evaluated Cecum: Normal Ascending Colon: a 12-15 mm sessile polyp in distal AC removed with a hot snare Transverse Colon: Normal Descending Colon: Normal Sigmoid Colon: Moderate diverticulosis Rectum: Normal Ano-rectum: Moderate internal hemorrhoids Colon preparation: Good after some irrigation Impression and Post Procedure Diagnosis: Colonoscopy Findings: One medium sized polyp removed Moderate diverticulosis seen in the sigmoid colon Moderate hemorrhoids on retroflexed exam. Plan: Await pathology results Patient has an appointment on 12/24/20 in the GI Clinic with Courtney Raines NP . Repeat Colonoscopy interval based on path results - in 3 years if polyps are adenomatous and 5 years if polyps are hyperplastic. Above findings were reviewed with the patient and colon polyps and diverticulosis handouts were given in the discharge area Surgeon: Shane Jade MD Anesthesia: MAC (Jayla Oconnell CRNA) Was an Paymaster Of Purses used for this Procedure?: Yes Paymaster Of Purses: Mindy De La Torre Estimated blood loss (mL): 0 Pathology: other (A: ASCENDING COLON POLYP) Condition: stable Disposition: PACU
--- NOTE | 2020-12-03 12:49 | W.PM.OPN ---
Operative Note Operative Note Date of Service: 12/03/20 Narrative: Pre-op diagnosis:?Colon cancer screening, history of colon polyps Post-op diagnosis:?other (Colon polyp, diverticulosis, hemorrhoids) Procedure:? COLONOSCOPY TILL CECUM WITH SNARE POLYPECTOMY Consent: Indications for the procedure and potential complications of bleeding, perforation, reaction to medications and missed diagnosis were discussed with the patient and informed consent was obtained. Instrument: Olympus PCF H 190 L variable stiffness pediatric colonoscope Monitoring: Vital signs and clinical assessment, intermittent blood pressure monitoring, continuous EKG monitoring, Pulse oximetry and Carbon Dioxide monitoring were done throughout the procedure. Colon withdrawl time was 16 minutes. Procedure: The patient was placed in the left lateral decubitis position and pre-procedure medications were administered. After a digital rectal examination of the ano-rectum, the video colonoscope was inserted into the rectum and advanced through the colon to the cecum. The colonoscope was slowly withdrawn in a retrograde panoramic fashion and the colon mucosa was carefully examined including a retroflexed view of the rectum. Findings and interventions are described below. Procedure Difficulty: Without difficulty Findings: Terminal Ileum: Not evaluated Cecum:? Normal Ascending Colon:? a 12-15 mm sessile polyp in distal AC removed with a hot snare Transverse Colon:? Normal Descending Colon:? Normal Sigmoid Colon:? Moderate diverticulosis Rectum:? Normal Ano-rectum:? Moderate internal hemorrhoids Colon preparation:? Good after some irrigation Impression and Post Procedure Diagnosis: Colonoscopy Findings: One medium sized polyp removed Moderate diverticulosis seen in the sigmoid colon Moderate hemorrhoids on retroflexed exam. Plan: Await pathology results Patient has an appointment on 12/24/20 in the GI Clinic with? Corutney Raines NP? . Repeat Colonoscopy interval based on path results - in 3 years if polyps are adenomatous and 5 years if polyps are hyperplastic. Above findings were reviewed with the patient and colon polyps and diverticulosis handouts were given in the discharge area Surgeon:?Shane Jade MD Anesthesia:?[facility] (Jayla Oconnell CRNA) Was an Oyster Grower used for this Procedure?:?Yes Oyster Grower:?Mindy De La Torre Estimated blood loss (mL):?0 Pathology:?other (A: ASCENDING COLON POLYP) Condition:?stable Disposition:?PACU
[2020-12-03 12:51] VITALS: BP 82/54; PULSE 60; RESP 16; TEMP 36.3; O2SAT 97
[2020-12-03 12:58] VITALS: BP 91/53; PULSE 56; RESP 19; TEMP 36.1; O2SAT 97
[2020-12-03 13:07] VITALS: BP 112/68; PULSE 64; RESP 18; TEMP 36.1; O2SAT 99
== END 2020-12-03 13:20 | disposition home or self-care (01) ==
PROVIDERS: PCP Internal Medicine; Visit Provider Internal Medicine Gastroenterology
PROC: 0DJD8ZZ Inspection of Lower Intestinal Tract, Via Natural or Artificial Opening Endoscopic (ICD-10-PCS; CPT 45378; principal; 2020-12-03 12:00)
DX: Z12.11 Encounter for screening for malignant neoplasm of colon (principal); Z86.010 Personal history of colon polyps; D12.2 Benign neoplasm of ascending colon; K57.30 Diverticulosis of large intestine without perforation or abscess without bleeding; K64.8 Other hemorrhoids; K59.04 Chronic idiopathic constipation; J45.909 Unspecified asthma, uncomplicated; I10 Essential (primary) hypertension; G47.00 Insomnia, unspecified; B20 Human immunodeficiency virus [HIV] disease; Z90.49 Acquired absence of other specified parts of digestive tract; Z79.51 Long term (current) use of inhaled steroids; Z79.899 Other long term (current) drug therapy
CPT/HCPCS: 45385; 88305

== ENCOUNTER → 2020-12-24 14:04 | Outpatient (BNVA) | payer MEDICAID, SELFPAY | PROVIDERS: PCP Internal Medicine; Visit Provider Nurse Practitioner ==

== ENCOUNTER 2021-01-07 12:01 | Outpatient (REF) | payer MEDICAID, SELFPAY ==
--- NOTE | ~2021-01-07 | XR_ITS ---
EXAMINATION: XR CHEST CLINICAL INFORMATION: Cough COMPARISON: Previous chest x-ray most recent June 2019 TECHNIQUE: 2 views of the chest were obtained. FINDINGS: The cardiac silhouette is upper normal in size. The thoracic aorta appears tortuous. Hilar and mediastinal contours are otherwise unremarkable. The lungs are clear. There is no pleural effusion or pneumothorax. There are degenerative changes of the spine and mild scoliosis. XR/XR chest 2V IMPRESSION: Upper normal-size cardiac silhouette and tortuous thoracic aorta. No evidence for acute disease in the chest.
[2021-01-07 12:52] LABS: MANUAL DIFF FLAG NO
[2021-01-07 12:56] LABS: Basophils Percent Auto 0.2 % (0-2); Eosinophils Absolute Auto 0.1 X10*3/uL (0.0-0.4); Hematocrit 37.6 % (37-47); Imm Gran Abs Auto 0.02 X10*3/uL (0.00-0.03); Imm Gran Pct Auto 0.4 % (0.0-0.4); Lymphocytes Absolute Auto 1.2 X10*3/uL (1.2-4.9); Lymphocytes Percent Auto 21.9 % (20-40); Mean Corpuscular HGB Conc 31.9 g/dl (31.0-35.0); Mean Corpuscular Hemoglobin 29.3 pg (27.0-33.0); Mean Corpuscular Volume 91.7 fL (80-98); Mean Platelet Volume 10.7 fL (9.4-12.3); Monocytes Absolute Auto 0.3 X10*3/uL (0.1-1.2); Monocytes Percent Auto 6.3 % (2-11); Neutrophils Absolute Auto 3.7 X10*3/uL (2.0-8.3); Neutrophils Percent Auto 69.2 % (45-73); Platelet Count 190 X10*3/uL (160-400); Red Cell Distribution Width 13.2 % (11.0-16.0); White Blood Count 5.4 X10*3/uL (4.8-10.8)
[2021-01-07 13:27] LABS: Alanine Aminotransferase 18 U/L (0-31); Alkaline Phosphatase 71 U/L (39-117); Anion Gap 10 (12-20); Aspartate Amino Transferase 23 U/L (5-31); Bilirubin Total 0.5 mg/dL (0.0-1.0); Blood Urea Nitrogen 18 mg/dL (9-16); Calcium 9.6 mg/dL (8.4-10.2); Carbon Dioxide 30 mmol/L (22-29); Chloride 106 mmol/L (96-108); Cholesterol 164 mg/dL; Estimated Glomerular Filt Rate > 60; Glucose Random 83 mg/dL (60-115); HDL Cholesterol 59 mg/dL; LDL Cholesterol Calculated 92 mg/dl; Potassium 4.2 mmol/L (3.3-5.1); Sodium 142 mmol/L (135-145); Total Protein 7.6 g/dL (6.5-8.0); Triglycerides 66 mg/dL
[2021-01-07 13:50] LABS: Thyroid Stimulating Hormone 0.77 uIU/mL (0.32-4.0)
== END 2021-01-07 12:02 | disposition home or self-care (01) ==
LOC: HO.XRAY 12:01
PROVIDERS: PCP Internal Medicine; Visit Provider Internal Medicine
DX: R05 Cough (principal); E78.00 Pure hypercholesterolemia, unspecified; J20.9 Acute bronchitis, unspecified; R53.83 Other fatigue; R73.01 Impaired fasting glucose
CPT/HCPCS: 36415; 71046; 80053; 80061; 84443; 85025

== ENCOUNTER 2021-01-17 09:56 | Outpatient (REF) | payer MEDICAID, SELFPAY | END 2021-01-17 09:57 | disposition home or self-care (01) | LOC: HO.LAB 09:56 | PROVIDERS: PCP Internal Medicine; Visit Provider Internal Medicine | DX: Z20.822 Contact with and (suspected) exposure to COVID-19 (principal) | CPT/HCPCS: C9803; U0003; U0005 ==

== ENCOUNTER 2021-05-12 08:23 | Outpatient (REF) | payer MEDICAID, SELFPAY ==
--- NOTE | ~2021-05-12 | MM_ITS ---
EXAMINATION: MM SCREENING DIGITAL BREAST TOMOSYNTHESIS, BILATERAL CLINICAL INFORMATION: Screening. Asymptomatic. The lifetime risk of breast cancer based on the Tyrer-Cuzick Model is 8%. COMPARISON: Mammography: 03/08/2020, 02/09/2019, 12/01/2017 TECHNIQUE: Digital breast tomosynthesis is performed in both the craniocaudal and mediolateral oblique views along with computer-aided detection (CAD). Synthesized 2D images are generated from the tomosynthesis. Additional right MLO view is provided. FINDINGS: There are scattered areas of fibroglandular density (ACR BI-RADS breast composition Category b). There are no significant masses, abnormal calcifications, or other abnormalities. There are scattered bilateral asymmetries similar to prior studies. No developing density or interval mass. No abnormal calcifications. No significant changes from prior exams. MM/MM tomosynthesis screening BI IMPRESSION: No significant changes from prior studies. ASSESSMENT: BI-RADS 2: Benign RECOMMENDATION: Routine annual mammography screening. This patient's information was entered into a reminder system with a target due date for their next mammogram.
== END 2021-05-12 08:24 | disposition home or self-care (01) ==
LOC: HO.MAMMO 08:23
PROVIDERS: PCP Internal Medicine; Visit Provider Internal Medicine
DX: Z12.31 Encounter for screening mammogram for malignant neoplasm of breast (principal)
CPT/HCPCS: 77063; 77067

== ENCOUNTER 2021-06-08 11:54 | Emergency (ER) | payer MEDICAID, SELFPAY ==
--- NOTE | ~2021-06-08 | CT_ITS ---
EXAMINATION: CT ANGIOGRAM OF THE CHEST WITH AND WITHOUT CONTRAST (CT PULMONARY ANGIOGRAM FOR PE) CLINICAL INFORMATION: Reason for Exam chest pain, SOB, r/o PE COMPARISON: Previous chest x-ray from earlier the same day and previous chest CTA April 2017 TECHNIQUE: Prior to contrast administration, noncontrast localization images were obtained. Subsequently, multidetector volumetric imaging was performed from the thoracic inlet to below the diaphragms following the administration of 85 mL Omnipaque 350 intravenous contrast. No contrast reaction reported Sagittal, coronal, and MIP oblique sagittal reformatted images were obtained on the CT workstation, uploaded to PACS, and reviewed. This CT examination was performed using dose optimization techniques as appropriate, variously including the following: *Automated exposure control *Adjustment of mA and/or kV according to patient size (this includes techniques or standardized protocols for targeted exams where dose is matched to indication/reason for exam; i.e. extremities or head) *Use of iterative reconstruction technique Total exam dose-length product 278 mGy-cm FINDINGS: QUALITY OF STUDY/CONTRAST BOLUS: Satisfactory. PULMONARY ARTERIES: No central or segmental pulmonary emboli. THORACIC AORTA: No aneurysm or dissection. LUNG: There are postsurgical changes with surgical staple line at the right lung apex. There is a small 3 mm peripheral or subpleural right upper lobe nodule axial image 167 series 9. This is stable. There are small clustered peribronchial nodules and increased peribronchial attenuation seen in the bilateral lower lobes suggestive of tree-in-bud appearance or airways disease. This is increased from previous exam. There is a 1 cm cyst in the left lower lobe axial image 333 series 9. PLEURA: No pleural effusion or pneumothorax. MEDIASTINUM: Normal heart size. No pericardial effusion. No hilar or mediastinal lymphadenopathy. No evidence of septal bowing or right heart strain. CHEST WALL/AXILLA: No axillary or internal mammary lymphadenopathy. OSSEOUS STRUCTURES: No acute or suspicious osseous abnormality. There are degenerative changes of the spine. UPPER ABDOMEN: The gallbladder is been removed. There is no intrahepatic biliary duct dilatation. The common bile duct is prominent measuring 1.2 cm. There is a 3 x 4 cm left renal cyst. No reflux of contrast into the hepatic veins to suggest elevated right heart pressures. CT/CT angio chest PE protocol IMPRESSION: No evidence of pulmonary embolism. Mild airways disease in both lower lobes. VTE: negative
--- NOTE | ~2021-06-08 | CT_ITS ---
EXAMINATION: CT ABDOMEN AND PELVIS WITH CONTRAST CLINICAL INFORMATION: Left lower quadrant/CVA tenderness. COMPARISON: CT abdomen pelvis June 18, 2019 TECHNIQUE: Multidetector volumetric images were obtained from the superior aspect of the liver through the pubic symphysis following administration 85 mL of Omnipaque 350 intravenous contrast. Sagittal and coronal reformatted images were obtained on the technologist's workstation. Oral contrast: No This CT examination was performed using dose optimization techniques as appropriate, variously including the following: *Automated exposure control *Adjustment of mA and/or kV according to patient size (this includes techniques or standardized protocols for targeted exams where dose is matched to indication/reason for exam; i.e. extremities or head) *Use of iterative reconstruction technique DLP: 573 mGy-cm FINDINGS: Please see accompanying CTA chest report for findings of the included lung bases. The liver demonstrates normal size, contour and attenuation. There is mild intrahepatic biliary ductal dilatation. The common bile duct is dilated measuring up to 1.5 cm. The gallbladder is surgically absent. There is mild dilatation of the proximal pancreatic duct which measures up to 5 mm. The pancreas is otherwise unremarkable. The spleen and adrenal glands are unremarkable. Symmetrically enhancing kidneys. There are approximately 5 nonobstructing calculi of the left kidney, the largest measuring approximately 5 mm. No definitive right-sided renal calculi appreciated. There is no hydronephrosis of either kidney. 5 cm left renal cyst. There are a few subcentimeter renal hypodensities bilaterally which are inaccurately characterized. Normal caliber loops of small bowel. Moderate colonic stool burden. Normal appendix. Normal caliber abdominal aorta. No retroperitoneal lymphadenopathy. The bladder is incompletely distended and therefore not accurately evaluated, however, there appears to be mild diffuse bladder wall thickening. Coarse calcification within the left uterus measuring approximately 1.3 cm is most suggestive of a degenerated fibroid. There is no gross free pelvic fluid present. No inguinal lymphadenopathy. Mild diffuse degenerative changes of the spine. CT/CT abdomen pelvis w con IMPRESSION: -Mild intrahepatic biliary ductal dilatation in addition to dilatation of the common bile duct and proximal pancreatic duct. Findings are nonspecific but may be related to the patient's cholecystectomy status. Clinical correlation is recommended. Endoscopy may be warranted. -Nonobstructing calculi the left kidney without hydronephrosis. - Moderate colonic stool burden. -The bladder is incompletely distended and therefore not accurately evaluated, however, there appears to be mild diffuse bladder wall thickening. Fleischner guidelines were followed.
--- NOTE | ~2021-06-08 | XR_ITS ---
EXAMINATION: XR CHEST CLINICAL INFORMATION: Chest pain COMPARISON: Chest x-ray January 07, 2021 TECHNIQUE: 2 views of the chest were obtained. FINDINGS: Cardiac silhouette is normal in size. The lungs are well aerated. There is no lobar consolidation. No pleural effusion or pneumothorax. Mild degenerative changes of the spine. Surgical clips of the upper abdomen. XR/XR chest 2V IMPRESSION: No acute pulmonary pathology.
[2021-06-08 11:59] VITALS: BP 132/56; PULSE 68; RESP 18; TEMP 36.9; O2SAT 98; BMI 31.6
--- NOTE | 2021-06-08 13:32 | ED.ABDPAIN ---
HPI - Abdominal Pain General Chief Complaint: Abdominal Pain Stated Complaint: body aches Time Seen by Provider: 06/08/21 13:31 Source: patient Mode of arrival: ambulatory Limitations: language barrier History of Present Illness HPI narrative: 61-year-old Czech-speaking female with past medical history of kidney stones, HIV, hypertension, osteoarthritis, asthma, obstructive sleep apnea, presents for 2 weeks of left-sided chest pain that radiates to her left back. Patient states she has pain under her ribs, the pain is worse when she takes a deep breath in. She feels mildly short of breath. The chest pain comes and goes, the back pain is constant. Patient also endorses left-sided abdominal pain. No nausea, vomiting, diarrhea, no fevers. Patient endorses mild cough. She is using a nebulizer 3 times a day which is her baseline use. Patient had a [employer] vaccine, and then May 19, 2021 she had her 2nd vaccine which was [facility]. States since 05/24/2021 she has had left-sided chest pain that radiates to her left back Related Data Home Medications Medication Instructions Recorded Confirmed albuterol sulfate 2.5 mg INHALATION Q4-6H PRN 01/24/20 01/24/20 citalopram 20 mg tablet 20 mg PO DAILY 01/24/20 01/24/20 elviteg 150 mg-cob 150 mg-emtricit 1 tab PO QPM 01/24/20 01/24/20 200 mg-tenofo alafenam 10 mg tablet (Genvoya) fluticasone propionate 110 1 puff INHALATION BID 01/24/20 01/24/20 mcg/actuation HFA aerosol inhaler (Flovent HFA) gabapentin 300 mg tablet 300 mg PO TID 01/24/20 01/24/20 linaclotide 145 mcg capsule 145 mcg PO QAM 01/24/20 01/24/20 (Linzess) lisinopril 5 mg tablet 5 mg PO DAILY 01/24/20 01/24/20 rosuvastatin 20 mg tablet (Crestor) 20 mg PO DAILY 01/24/20 01/24/20 tizanidine 4 mg capsule 4 mg PO Q8H PRN 01/24/20 01/24/20 Previous Rx's Medication Instructions Recorded cefuroxime axetil 250 mg tablet 250 mg PO BID #14 tab 10/08/20 phenazopyridine 100 mg tablet 100 mg PO TID PRN #5 tab 10/08/20 (Pyridium) omeprazole 20 mg capsule,delayed 20 mg PO DAILY #90 cap 02/17/21 release cefpodoxime 200 mg tablet 200 mg PO BID 10 Days #20 tab 06/08/21 Allergies Allergy/AdvReac Type Severity Reaction Status Date / Time shellfish derived Allergy Intermediate HIVES, N/V Verified 12/24/20 14:05 Review of Systems Constitutional: Reports body ache(s), Denies chills, Denies fatigue, Denies fever(s), Denies headache(s), Denies malaise and Denies weakness Eyes: Denies blurry vision and Denies diplopia Denies dizziness, Denies otalgia, Denies headache(s), Denies mouth pain, Denies post nasal drip, Denies sinus pain and Denies sore throat Cardiovascular: Reports chest pain, Denies Epigastric Pain, Denies syncope, Denies leg edema, Denies lightheadedness, Denies Loss of Consciousness, Denies palpitations and Reports dyspnea Respiratory: Denies chest congestion, Reports cough and Reports dyspnea Gastrointestinal: Reports abdominal pain, Denies hematochezia, Denies constipation, Denies diarrhea and Denies vomiting Genitourinary: Denies abnormal vaginal bleeding and Denies dysuria Musculoskeletal: Reports back pain Denies confusion, Denies dizziness, Denies syncope, Denies headache(s) and Denies weakness Psychiatric: Denies anxiety, Denies confusion and Denies depression Endocrine: Denies fatigue and Denies palpitations PMFSH Past Medical History Medical History Anemia Arthritis Asthma Depression Difficulty swallowing Elevated cholesterol Hepatitis History of blood transfusion HIV (human immunodeficiency virus infection) HTN (hypertension) Hx of renal calculi Sleep apnea Surgical History Hx of section Hx of cholecystectomy Hx of colonoscopy Hx of dilation and curettage Hx of reduction mammoplasty Hx of tubal ligation Family History Family History Mother Breast cancer Father Heart problem Sister Bone cancer Family/Other Diabetes Social History Social History Alcohol intake: never Patient Tobacco Use Status: Never used Tobacco Second Hand Smoke Exposure: No Use of substances other than those prescribed or required for medical reasons: No Advance Directives: No Advance Directives Information Provided: Yes Physical Exam ED Vital Signs: Vital Signs - 24 hr 06/08/21 11:59 06/08/21 13:40 Temperature 98.4 F 98.0 F Pulse Rate 68 70 Respiratory Rate 18 18 Blood Pressure 132/56 L 154/83 H Pulse Oximetry 98 100 BMI result Body Mass Index 31.6 Const General: no acute distress, alert and awake; No confusion Nutritional Appearance: well nourished Orientation/consciousness: patient oriented x3 and No confusion Limitations: language barrier HENMT Head: Yes normal to inspection, Yes No palpable skull fracture present, Yes normocephalic and Yes atraumatic Ears: hearing grossly normal bilaterally General nose exam: Normal external nose present Face and sinus: Yes normal facial exam Mouth: Normal oral and palatal mucosa present Throat: Yes posterior oropharynx normal Eyes Pupils: Equal, round and reactive pupils present EOM: EOMs intact bilaterally Neck Neck: Yes normal visual inspection, Yes full ROM, Yes no lymphadenopathy, Yes no meningeal signs, Yes trachea midline and Yes supple Resp Effort & Inspection: normal respiratory effort Auscultation: clear to auscultation bilaterally, no crackles, no rales, no rhonchi and no wheezes Cardio Rate: regular rate Rhythm: regular rhythm Heart sounds: S1 normal heart sound present and S2 normal heart sound present GI Inspection: Yes obesity Palpation (GI): Soft to palpation, not firm, Tenderness to palpation present (GI) in the LLQ, Guarding due to palpation present (GI) in the LLQ and not rigid Percussion: Yes normal to percussion Auscultation: normal bowel sounds General: Yes CVA tenderness on the left Back/Spine/Pelvis Back: CVA tenderness Cervical Spine: cervical ROM normal and No Cervical spine tenderness Thoracic/Lumbar Spine: paraspinal muscle tenderness bilaterally, No thoracic spinal tenderness and No lumbar spinal tenderness Skin General skin exam: no rashes or lesions noted Neuro General: patient oriented x3, no meningeal signs and No confusion Cranial nerves: Yes Equal, round and reactive pupils present Extrem General: Yes normal to inspection, Yes full ROM and Yes capillary refill normal Psych Appearance: grossly normal Mental Status: mental status grossly normal Speech and movement: Normal speech and movement present Affect: normal affect Attitude: cooperative Thought process: Normal thought process present Course Course Course Narrative: 7-year-old female presents with 2 weeks of left-sided chest pain radiating to left back, she has pleuritic pain and dyspnea. Also endorses left-sided abdominal pain. On exam, patient is in no acute distress, vitals are stable. Patient is tender in her left lower quadrant, tender in her left costovertebral angle. Will get EKG, troponin, labs, urine, chest x-ray, will do CTA to rule out pulmonary embolism, will CT abdomen and pelvis. Reevaluation(s) Reevaluation #1: Patient has a negative troponin, a normal chest x-ray, and a normal EKG. This does not look like acute coronary syndrome. Labs are unremarkable. Urine is positive for leukocyte esterase and white blood cells. Awaiting CT results Reevaluation #2: CTA shows no pulmonary embolism, CT abdomen shows bladder wall thickening, no hydronephrosis or fat stranding around the kidneys. Will treat with cefpodoxime Gave return precautions of fever, feeling more weak, being unable to eat or drink, she should return to emergency room. Patient verbalized agreement understanding of the plan. CT/CT abdomen pelvis w con IMPRESSION: -Mild intrahepatic biliary ductal dilatation in addition to dilatation of the common bile duct and proximal pancreatic duct. Findings are nonspecific but may be related to the patient's cholecystectomy status. Clinical correlation is recommended. Endoscopy may be warranted. -Nonobstructing calculi the left kidney without hydronephrosis. - Moderate colonic stool burden. -The bladder is incompletely distended and therefore not accurately evaluated, however, there appears to be mild diffuse bladder wall thickening. MDM - Abdominal Pain Lab Data Result diagrams: 06/08/21 14:13 06/08/21 14:46 Labs: Lab Results 06/08/21 06/08/21 06/08/21 Range/Units 13:43 14:13 14:13 WBC 4.7 L (4.8-10.8) X10*3/uL RBC 4.41 (4.20-5.50) X10*6/uL Hgb 12.6 (12.0-16.0) g/dl Hct 39.2 (37.0-47.0) % MCV 88.9 (80.0-98.0) fL MCH 28.6 (27.0-33.0) pg MCHC 32.1 (31.0-35.0) g/dl RDW 13.2 (11.0-16.0) % Plt Count 204 (160-400) X10*3/uL MPV 11.2 (9.4-12.3) fL Immature Gran % (Auto) 0.6 H (0.0-0.4) % Neut % (Auto) 63.0 (45-73) % Lymph % (Auto) 27.2 (20-40) % Christian % (Auto) 7.3 (2-11) % Eos % (Auto) 1.5 (0-4) % Baso % (Auto) 0.4 (0-2) % Lymph # (Auto) 1.3 (1.2-4.9) X10*3/uL Christian # (Auto) 0.3 (0.1-1.2) X10*3/uL Eos # (Auto) 0.1 (0.0-0.4) X10*3/uL Baso # (Auto) 0.0 (0.0-0.2) X10*3/uL Abs Immat Gran (auto) 0.03 (0.00-0.03) X10*3/uL Absolute Neuts (auto) 2.9 (2.0-8.3) x10*3/uL Absolute Nucleated RBC 0.000 (0.0-0.012) X10*3/uL Nucleated RBC % (auto) 0.0 (0.0-0.2) /100WBC Sodium (135-145) mmol/L Potassium (3.3-5.1) mmol/L Chloride (96-108) mmol/L Carbon Dioxide (22-29) mmol/L Anion Gap (12-20) BUN (9-16) mg/dL Creatinine (0.5-1.4) mg/dL Estim Creat Clear Calc Estimated GFR Random Glucose (60-115) mg/dL Calcium (8.4-10.2) mg/dL Total Bilirubin (0.0-1.0) mg/dL AST (5-31) U/L ALT (0-31) U/L Alkaline Phosphatase (39-117) U/L Troponin I High Sens < 3.5 (<3.5-17.0) ng/L Total Protein (6.5-8.0) g/dL Albumin (3.5-5.0) g/dL Urine Color YELLOW Urine Appearance CLOUDY Urine pH 7.5 (5.0-8.0) Ur Specific [place] 1.015 (1.005-1.025) Urine Protein NEG (NEG-TRACE) MG/DL Urine Glucose (UA) NEG (NEG) MG/DL Urine Ketones NEG (NEG) MG/DL Urine Blood 1+ H (NEG) Urine Nitrite NEG (NEG) Ur Leukocyte Esterase 1+ H (NEG) Urine RBC 1-4 (0) /HPF Urine WBC 30-49 H (0-4) /HPF Urine WBC Clumps NOTED Ur Squamous Epith Cells 2+ /LPF Amorphous Sediment TRACE /LPF Urine Bacteria 2+ /LPF COVID-19 ([facility]ON[facility]) (Negative) COVID-19 Clin Com 06/08/21 06/08/21 Range/Units 14:13 14:46 WBC (4.8-10.8) X10*3/uL RBC (4.20-5.50) X10*6/uL Hgb (12.0-16.0) g/dl Hct (37.0-47.0) % MCV (80.0-98.0) fL MCH (27.0-33.0) pg MCHC (31.0-35.0) g/dl RDW (11.0-16.0) % Plt Count (160-400) X10*3/uL MPV (9.4-12.3) fL Immature Gran % (Auto) (0.0-0.4) % Neut % (Auto) (45-73) % Lymph % (Auto) (20-40) % Christian % (Auto) (2-11) % Eos % (Auto) (0-4) % Baso % (Auto) (0-2) % Lymph # (Auto) (1.2-4.9) X10*3/uL Christian # (Auto) (0.1-1.2) X10*3/uL Eos # (Auto) (0.0-0.4) X10*3/uL Baso # (Auto) (0.0-0.2) X10*3/uL Abs Immat Gran (auto) (0.00-0.03) X10*3/uL Absolute Neuts (auto) (2.0-8.3) x10*3/uL Absolute Nucleated RBC (0.0-0.012) X10*3/uL Nucleated RBC % (auto) (0.0-0.2) /100WBC Sodium 140 (135-145) mmol/L Potassium 4.0 (3.3-5.1) mmol/L Chloride 105 (96-108) mmol/L Carbon Dioxide 29 (22-29) mmol/L Anion Gap 10 L (12-20) BUN 18 H (9-16) mg/dL Creatinine 0.91 (0.5-1.4) mg/dL Estim Creat Clear Calc 66.2 Estimated GFR > 60 Random Glucose 83 (60-115) mg/dL Calcium 9.4 (8.4-10.2) mg/dL Total Bilirubin 0.3 (0.0-1.0) mg/dL AST 19 (5-31) U/L ALT 12 (0-31) U/L Alkaline Phosphatase 88 D (39-117) U/L Troponin I High Sens (<3.5-17.0) ng/L Total Protein 7.6 (6.5-8.0) g/dL Albumin 3.8 (3.5-5.0) g/dL Urine Color Urine Appearance Urine pH (5.0-8.0) Ur Specific [place] (1.005-1.025) Urine Protein (NEG-TRACE) MG/DL Urine Glucose (UA) (NEG) MG/DL Urine Ketones (NEG) MG/DL Urine Blood (NEG) Urine Nitrite (NEG) Ur Leukocyte Esterase (NEG) Urine RBC (0) /HPF Urine WBC (0-4) /HPF Urine WBC Clumps Ur Squamous Epith Cells /LPF Amorphous Sediment /LPF Urine Bacteria /LPF COVID-19 (JON[facility]) Negative (Negative) COVID-19 Clin Com See Note Discharge Plan Discharge Clinical Impression: UTI (urinary tract infection) Patient Disposition: Home, Self-Care Instructions: Dysuria (ED), Urinary Tract Infection in Older Adults (ED) Additional Instructions: Please call your primary care provider for follow-up appointment from today's emergency room visit. Please fill your prescription for antibiotics and take them as prescribed. If you have fevers, worsening pain, nausea vomiting, or any other new or concerning symptoms, please return to emergency room. Llame a jaeger proveedor de atenci?n primaria para astrid johnny de seguimiento de la visita a la montserrat de emergencias de hoy. Complete jaeger receta de antibi?ticos y t?melos seg?n lo prescrito. Si tiene fiebre, dolor que empeora, n?useas, v?mitos o cualquier otro s?ntoma nuevo o preocupante, regrese a la montserrat de emergencias. Prescriptions: New cefpodoxime 200 mg tablet 200 mg PO BID 10 Days Qty: 20 0RF Rx Instructions: must administer with a meal/food No Action omeprazole 20 mg capsule,delayed release(DR/EC) 20 mg PO DAILY Qty: 90 0RF albuterol sulfate 2.5 mg /3 mL (0.083 %) Solution For Nebulization 2.5 mg INHALATION Q4-6H PRN (Reason: Shortness Of Breath) 0RF citalopram 20 mg Tablet 20 mg PO DAILY 0RF lisinopril 5 mg Tablet 5 mg PO DAILY 0RF Flovent HFA 110 mcg/actuation Hfa Aerosol Inhaler 1 puff INHALATION BID 0RF rosuvastatin [Crestor] 20 mg Tablet 20 mg PO DAILY 0RF gabapentin 300 mg Tablet 300 mg PO TID 0RF tizanidine 4 mg Capsule 4 mg PO Q8H PRN (Reason: Muscle Spasm) 0RF Linzess 145 mcg Capsule 145 mcg PO QAM 0RF Genvoya [phone] mg Tablet 1 tab PO QPM 0RF cefuroxime axetil 250 mg tablet 250 mg PO BID Qty: 14 0RF phenazopyridine [Pyridium] 100 mg tablet 100 mg PO TID PRN (Reason: pain) Qty: 5 0RF Print Language: Czech
[2021-06-08 13:40] VITALS: BP 154/83; PULSE 70; RESP 18; TEMP 36.7; O2SAT 100
[2021-06-08 13:48] LABS: Appearance Urine CLOUDY; Color Urine YELLOW; Glucose Urine UA NEG (NEG); Leukocyte Esterase Urine 1+ (NEG); Nitrite Urine NEG (NEG); PH 7.5 (5.0-8.0); Specific Gravity - Urine 1.015 (1.005-1.025); UACC Culture Trigger YES; Urine Blood 1+ (NEG); Urine Ketones NEG (NEG); Urine Protein NEG (NEG-TRACE)
--- NOTE | 2021-06-08 13:56 | ECG_ITS ---
Test Reason : ABDOMINAL PAIN Blood Pressure : / mmHG Vent. Rate : 053 BPM Atrial Rate : 053 BPM P-R Int : 162 ms QRS Dur : 088 ms QT Int : 442 ms P-R-T Axes : 069 -52 041 degrees QTc Int : 414 ms Sinus bradycardia Left axis deviation Borderline ECG When compared with ECG of 08-OCT-2020 12:48, No significant change was found Referred By: Larisa Baeur Electronically Signed By:FELICIANO RAMIREZ
[2021-06-08 14:05] LABS: Squamous Epithelial Cell Urine 2+ /LPF
[2021-06-08 14:06] LABS: UACC CULT YES; WBC Urine 30-49 /HPF (0-4)
[2021-06-08 14:07] LABS: Bacteria Urine 2+ /LPF; WBC Clumps Urine NOTED
[2021-06-08 14:08] LABS: Amorphous Sediment Urine TRACE /LPF
[2021-06-08 14:18] LABS: MANUAL DIFF FLAG NO
[2021-06-08 14:28] LABS: Basophils Percent Auto 0.4 % (0-2); Eosinophils Absolute Auto 0.1 X10*3/uL (0.0-0.4); Eosinophils Percent Auto 1.5 % (0-4); Hematocrit 39.2 % (37.0-47.0); Hemoglobin 12.6 g/dl (12.0-16.0); Imm Gran Abs Auto 0.03 X10*3/uL (0.00-0.03); Imm Gran Pct Auto 0.6 % (0.0-0.4); Lymphocytes Absolute Auto 1.3 X10*3/uL (1.2-4.9); Lymphocytes Percent Auto 27.2 % (20-40); Mean Corpuscular HGB Conc 32.1 g/dl (31.0-35.0); Mean Corpuscular Hemoglobin 28.6 pg (27.0-33.0); Mean Corpuscular Volume 88.9 fL (80.0-98.0); Mean Platelet Volume 11.2 fL (9.4-12.3); Monocytes Absolute Auto 0.3 X10*3/uL (0.1-1.2); Monocytes Percent Auto 7.3 % (2-11); Neutrophils Absolute Auto 2.9 x10*3/uL (2.0-8.3); Platelet Count 204 X10*3/uL (160-400); Red Blood Count 4.41 X10*6/uL (4.20-5.50); Red Cell Distribution Width 13.2 % (11.0-16.0); White Blood Count 4.7 X10*3/uL (4.8-10.8)
[2021-06-08 14:41] LABS: Troponin-I High Sensitivity < 3.5 ng/L (<3.5-17.0)
[2021-06-08 14:53] LABS: COVID-19 Test Negative (Negative)
[2021-06-08] MEDS: 0.9 % Sodium Chloride 1,000 ML 999 ML IV (15:02)
[2021-06-08] MEDS: ondansetron HCL 4 MG/2 ML VIAL IVPUSH (15:03)
[2021-06-08] MEDS: Morphine Sulfate 4 MG/ML CARTRIDGE IVPUSH (15:03)
[2021-06-08 15:19] LABS: Alanine Aminotransferase 12 U/L (0-31); Albumin Level 3.8 g/dL (3.5-5.0); Alkaline Phosphatase 88 U/L (39-117); Anion Gap 10 (12-20); Aspartate Amino Transferase 19 U/L (5-31); Bilirubin Total 0.3 mg/dL (0.0-1.0); Blood Urea Nitrogen 18 mg/dL (9-16); Calcium 9.4 mg/dL (8.4-10.2); Carbon Dioxide 29 mmol/L (22-29); Chloride 105 mmol/L (96-108); Creatinine Clr Calc Pharmacy 66.2; Estimated Glomerular Filt Rate > 60; Glucose Random 83 mg/dL (60-115); Sodium 140 mmol/L (135-145); Total Protein 7.6 g/dL (6.5-8.0)
[2021-06-08] MEDS: iohexoL 350 MG/ML 100 ML INFUS..BTL 85 ML IV (15:45)
== END 2021-06-08 18:14 | disposition home or self-care (01) ==
PROVIDERS: Physician Assistant; Emergency Provider Emergency Medicine; PCP Internal Medicine
DX: N39.0 Urinary tract infection, site not specified (principal); M79.10 Myalgia, unspecified site; I10 Essential (primary) hypertension; R10.9 Unspecified abdominal pain; R06.02 Shortness of breath; M54.50 Low back pain, unspecified; Z20.822 Contact with and (suspected) exposure to COVID-19; Z79.899 Other long term (current) drug therapy
CPT/HCPCS: 71046; 71275; 74177; 80053; 81001; 84484; 85025; 87086; 87088; 87186; 87635; 93005; 96360; 96361; 96374; 96375; 96376; 99284; J2270; J2405; Q9967

== ENCOUNTER 2021-08-11 07:29 | Outpatient (REF) | payer MEDICAID, SELFPAY | END 2021-08-11 07:30 | disposition home or self-care (01) | LOC: HO.HOSX 07:29 | PROVIDERS: Visit Provider Physician Assistant | DX: Z13.89 Encounter for screening for other disorder (principal) ==

== ENCOUNTER 2021-08-18 10:54 | Outpatient (REF) | payer MEDICAID, SELFPAY ==
[2021-08-18 11:07] LABS: MANUAL DIFF FLAG NO
[2021-08-18 11:24] LABS: Basophils Percent Auto 0.2 % (0-2); Eosinophils Absolute Auto 0.2 X10*3/uL (0.0-0.4); Eosinophils Percent Auto 4.6 % (0-4); Hemoglobin 11.7 g/dl (12.0-16.0); Imm Gran Abs Auto 0.01 X10*3/uL (0.00-0.03); Imm Gran Pct Auto 0.2 % (0.0-0.4); Lymphocytes Absolute Auto 1.3 X10*3/uL (1.2-4.9); Lymphocytes Percent Auto 26.5 % (20-40); Mean Corpuscular HGB Conc 31.6 g/dl (31.0-35.0); Mean Corpuscular Hemoglobin 28.7 pg (27.0-33.0); Mean Corpuscular Volume 90.9 fL (80.0-98.0); Mean Platelet Volume 10.6 fL (9.4-12.3); Monocytes Absolute Auto 0.4 X10*3/uL (0.1-1.2); Monocytes Percent Auto 8.6 % (2-11); Neutrophils Absolute Auto 2.8 x10*3/uL (2.0-8.3); Neutrophils Percent Auto 59.9 % (45-73); Platelet Count 202 X10*3/uL (160-400); Red Blood Count 4.07 X10*6/uL (4.20-5.50); Red Cell Distribution Width 13.2 % (11.0-16.0); White Blood Count 4.8 X10*3/uL (4.8-10.8)
[2021-08-18 12:05] LABS: Alanine Aminotransferase 21 U/L (0-31); Albumin Level 3.9 g/dL (3.5-5.0); Alkaline Phosphatase 91 U/L (39-117); Anion Gap 10 (12-20); Aspartate Amino Transferase 27 U/L (5-31); Bilirubin Total 0.4 mg/dL (0.0-1.0); Blood Urea Nitrogen 17 mg/dL (9-16); Calcium 9.8 mg/dL (8.4-10.2); Carbon Dioxide 31 mmol/L (22-29); Chloride 103 mmol/L (96-108); Cholesterol 184 mg/dL; Estimated Glomerular Filt Rate 59; Glucose Random 96 mg/dL (60-115); HDL Cholesterol 57 mg/dL; LDL Cholesterol Calculated 104 mg/dl; Sodium 140 mmol/L (135-145); Total Protein 7.8 g/dL (6.5-8.0); Triglycerides 118 mg/dL
== END 2021-08-18 10:55 | disposition home or self-care (01) ==
LOC: HO.LAB 10:54
PROVIDERS: PCP Internal Medicine; Visit Provider Internal Medicine
DX: G56.03 Carpal tunnel syndrome, bilateral upper limbs (principal); I10 Essential (primary) hypertension; M54.89 Other dorsalgia
CPT/HCPCS: 36415; 80053; 80061; 85025

== ENCOUNTER 2021-09-12 07:10 | Outpatient (REF) | payer MEDICAID, SELFPAY ==
--- NOTE | ~2021-09-12 | XR_ITS ---
EXAMINATION: XR KNEE, BILATERAL XR KNEE, STANDING AP, BILATERAL CLINICAL INFORMATION: Bilateral knee pain. COMPARISON: None. TECHNIQUE: AP bilateral knee 1 view. 2 views each knee. FINDINGS: AP Bilateral Knee: There is mild reduction in the medial compartment joint space both knees without bony erosive changes. There are no loose bodies. There are prominent vasculature is seen along the lateral knee soft tissues, likely varicose veins. Left Knee: Lateral and sunrise views of left knee reveal mild reduction in the patellofemoral compartment joint space with anterior superior patellar enthesophyte. No loose bodies or bony erosive changes. The abnormal joint effusion seen The soft tissues are normal. Right Knee: There is mild reduction in the patellofemoral compartment joint space with no joint effusion seen. There is anterior superior patellar enthesophyte. No loose bodies of bony erosive changes. XR/XR knee LT 2V IMPRESSION: Degenerative arthritic changes medial and patellofemoral compartments both knees. There is superior patellar enthesophytes without joint effusion in bilateral knees. No acute fracture or loose body seen. There are varicose veins seen bilaterally in along the lateral knee joints.
--- NOTE | ~2021-09-12 | XR_ITS ---
EXAMINATION: XR KNEE, BILATERAL XR KNEE, STANDING AP, BILATERAL CLINICAL INFORMATION: Bilateral knee pain. COMPARISON: None. TECHNIQUE: AP bilateral knee 1 view. 2 views each knee. FINDINGS: AP Bilateral Knee: There is mild reduction in the medial compartment joint space both knees without bony erosive changes. There are no loose bodies. There are prominent vasculature is seen along the lateral knee soft tissues, likely varicose veins. Left Knee: Lateral and sunrise views of left knee reveal mild reduction in the patellofemoral compartment joint space with anterior superior patellar enthesophyte. No loose bodies or bony erosive changes. The abnormal joint effusion seen The soft tissues are normal. Right Knee: There is mild reduction in the patellofemoral compartment joint space with no joint effusion seen. There is anterior superior patellar enthesophyte. No loose bodies of bony erosive changes. XR/XR knee standing BI IMPRESSION: Degenerative arthritic changes medial and patellofemoral compartments both knees. There is superior patellar enthesophytes without joint effusion in bilateral knees. No acute fracture or loose body seen. There are varicose veins seen bilaterally in along the lateral knee joints.
--- NOTE | ~2021-09-12 | XR_ITS ---
EXAMINATION: XR KNEE, BILATERAL XR KNEE, STANDING AP, BILATERAL CLINICAL INFORMATION: Bilateral knee pain. COMPARISON: None. TECHNIQUE: AP bilateral knee 1 view. 2 views each knee. FINDINGS: AP Bilateral Knee: There is mild reduction in the medial compartment joint space both knees without bony erosive changes. There are no loose bodies. There are prominent vasculature is seen along the lateral knee soft tissues, likely varicose veins. Left Knee: Lateral and sunrise views of left knee reveal mild reduction in the patellofemoral compartment joint space with anterior superior patellar enthesophyte. No loose bodies or bony erosive changes. The abnormal joint effusion seen The soft tissues are normal. Right Knee: There is mild reduction in the patellofemoral compartment joint space with no joint effusion seen. There is anterior superior patellar enthesophyte. No loose bodies of bony erosive changes. XR/XR knee RT 2V IMPRESSION: Degenerative arthritic changes medial and patellofemoral compartments both knees. There is superior patellar enthesophytes without joint effusion in bilateral knees. No acute fracture or loose body seen. There are varicose veins seen bilaterally in along the lateral knee joints.
== END 2021-09-12 07:11 | disposition home or self-care (01) ==
LOC: HO.HOSX 07:10
PROVIDERS: Visit Provider Physician Assistant
DX: M17.12 Unilateral primary osteoarthritis, left knee (principal); M25.561 Pain in right knee
CPT/HCPCS: 73560; 73565; 99202

== ENCOUNTER → 2021-09-23 13:47 | Outpatient (BNVA) | payer MEDICAID, SELFPAY | PROVIDERS: PCP Internal Medicine; Visit Provider Surgery Vascular Surgery | DX: I83.11 Varicose veins of right lower extremity with inflammation (principal); I83.811 Varicose veins of right lower extremity with pain | CPT/HCPCS: 99202 ==

== ENCOUNTER 2021-10-01 09:14 | Emergency (ER) | payer MEDICAID, SELFPAY ==
--- NOTE | ~2021-10-01 | CT_ITS ---
EXAMINATION: CT ABDOMEN AND PELVIS WITHOUT CONTRAST CLINICAL INFORMATION: Left flank pain. Rule out stone. COMPARISON: CT abdomen and pelvis 06/08/2021. TECHNIQUE: Multidetector volumetric imaging was performed from the superior aspect of the liver through the pubic symphysis. Sagittal and coronal reformatted images were obtained on the technologist's workstation. This CT examination was performed using dose optimization techniques as appropriate, variously including the following: *Automated exposure control *Adjustment of mA and/or kV according to patient size (this includes techniques or standardized protocols for targeted exams where dose is matched to indication/reason for exam; i.e. extremities or head) *Use of iterative reconstruction technique DLP: 606 mGy-cm FINDINGS: LUNG BASES: There is bibasilar peribronchial thickening and mild bronchiectasis, likely small airway disease. There is no consolidation. Heart size is normal. LIVER, GALLBLADDER, AND BILIARY TREE: The liver is normal in size, shape, and attenuation. No focal hepatic lesion or biliary ductal dilatation is present. Previously visualized mild prominence of intrahepatic ducts has resolved. The gallbladder has been surgically removed. PANCREAS: Unremarkable. SPLEEN: Unremarkable. ADRENAL GLANDS: Unremarkable. KIDNEYS AND URETERS: The kidneys are normal in size, shape, and attenuation. There are multiple radiopaque calculi in the mid and lower pole left kidney, the largest midpole calculi measures 5 mm on coronal image 48/5 and lower pole measures 7 mm on coronal image 43/5. No radiopaque calculi seen in the right kidney. There is no hydroureteronephrosis. No perinephric stranding. There is a large partially exophytic cyst in the upper pole left kidney measuring 5.2 x 4.2 cm. BLADDER: Unremarkable. GASTROINTESTINAL TRACT: There is scattered stool and gas seen throughout the colon. The small bowel loops are normal caliber. The appendix is normal caliber. No free air or free fluid seen. ABDOMINAL WALL: No significant hernia is appreciated. LYMPH NODES: Normal. VASCULAR: Unremarkable. PELVIC VISCERA: The uterus is anteverted with an amorphous calcification in the mid left uterus, likely a fibroid. There is no free fluid. OSSEOUS STRUCTURES: There are degenerative disc changes with vacuum disc phenomena at the L5-S1 disc level. There is mild spondylosis of the lower dorsal and lower lumbar spine. No aggressive lytic or sclerotic process seen. CT/CT abdomen pelvis wo con IMPRESSION: Cholecystectomy with improved intrahepatic ductal prominence from the previous study. There are multiple left renal calculi without any caliectasis or hydronephrosis. Mild constipation without obstruction. Anteverted uterus with amorphous calcified uterine fibroid left mid uterus. No major change compared to previous study 06/08/2021. Fleischner guidelines were followed.
[2021-10-01 09:42] VITALS: BP 139/82; PULSE 80; RESP 19; TEMP 36.6; O2SAT 98; BMI 31.8
[2021-10-01 10:05] LABS: MANUAL DIFF FLAG NO
[2021-10-01 10:07] LABS: Appearance Urine CLOUDY; Color Urine YELLOW; Glucose Urine UA NEG (NEG); Leukocyte Esterase Urine 3+ (NEG); Nitrite Urine POS (NEG); UACC Culture Trigger YES; Urine Blood TRACE (NEG); Urine Ketones NEG (NEG); Urine Protein TRACE MG/DL (NEG-TRACE)
[2021-10-01 10:08] LABS: Basophils Percent Auto 0.1 % (0-2); Eosinophils Absolute Auto 0.1 X10*3/uL (0.0-0.4); Eosinophils Percent Auto 0.8 % (0-4); Hematocrit 43.5 % (37.0-47.0); Hemoglobin 13.8 g/dl (12.0-16.0); Imm Gran Abs Auto 0.02 X10*3/uL (0.00-0.03); Imm Gran Pct Auto 0.3 % (0.0-0.4); Lymphocytes Absolute Auto 1.4 X10*3/uL (1.2-4.9); Lymphocytes Percent Auto 18.7 % (20-40); Mean Corpuscular HGB Conc 31.7 g/dl (31.0-35.0); Mean Corpuscular Hemoglobin 28.3 pg (27.0-33.0); Mean Corpuscular Volume 89.1 fL (80.0-98.0); Mean Platelet Volume 10.1 fL (9.4-12.3); Monocytes Absolute Auto 0.3 X10*3/uL (0.1-1.2); Monocytes Percent Auto 4.4 % (2-11); Neutrophils Absolute Auto 5.6 x10*3/uL (2.0-8.3); Neutrophils Percent Auto 75.7 % (45-73); Platelet Count 233 X10*3/uL (160-400); Red Blood Count 4.88 X10*6/uL (4.20-5.50); Red Cell Distribution Width 13.5 % (11.0-16.0); White Blood Count 7.4 X10*3/uL (4.8-10.8)
[2021-10-01 10:19] LABS: WBC Urine TNTC /HPF (0-4)
[2021-10-01 10:20] LABS: Bacteria Urine 2+ /LPF; Calcium Oxalate Crystals Urine 1+ /LPF; Mucus Urine 1+ /LPF; Squamous Epithelial Cell Urine 1+ /LPF
[2021-10-01 10:24] LABS: COVID-19 Test Negative (Negative); IDNOW Serial# 16C4AD1C
[2021-10-01 10:27] LABS: Alanine Aminotransferase 14 U/L (0-31); Alkaline Phosphatase 98 U/L (39-117); Anion Gap 12 (12-20); Aspartate Amino Transferase 16 U/L (5-31); Bilirubin Direct 0.2 mg/dL (0.0-0.5); Bilirubin Total 0.4 mg/dL (0.0-1.0); Blood Urea Nitrogen 19 mg/dL (9-16); Calcium 9.5 mg/dL (8.4-10.2); Carbon Dioxide 28 mmol/L (22-29); Chloride 104 mmol/L (96-108); Creatinine Clr Calc Pharmacy 59.3; Estimated Glomerular Filt Rate 55; Glucose Random 116 mg/dL (60-115); Lipase 19 U/L (8-78); Potassium 3.7 mmol/L (3.3-5.1); Sodium 140 mmol/L (135-145); Total Protein 8.6 g/dL (6.5-8.0)
[2021-10-01 10:31] LABS: Influenza A Negative (Negative); Influenza B2 Negative (Negative)
--- NOTE | 2021-10-01 11:27 | ED.ABDPAIN ---
HPI - Abdominal Pain General Chief Complaint: Abdominal Pain Stated Complaint: vomiting Time Seen by Provider: 10/01/21 11:00 Source: patient Mode of arrival: ambulatory Limitations: language barrier (Kenyan speaking, sign language interpreter used) History of Present Illness HPI narrative: 61-year-old female who presents emergency department for evaluation of abdominal pain nausea vomiting, diarrhea dizziness. Patient states that her symptoms started on Wednesday, 3 days prior to evaluation. She states that she has been vomiting 6 times a day is not been able to hold down food or fluid. She states she is feeling weak, dizzy and lightheaded. She has had 2-3 loose diarrheal stools per day. She denied seen blood in her emesis or stool. The patient has had no recent travel and she has not been on any antibiotics recently. She has noted left flank and upper quadrant abdominal pain which she describes as a ?pushing ?pain that is constant and is 10/10 at its worst. She has a history of kidney stones but states this pain feels different than her kidney stone pain. The patient has noted some slight dysuria and took a Pyridium with relief for symptoms. She denied frequency or urgency. She has had occasional chills, cough occasionally productive of green sputum otherwise review of systems was negative. MD elicited complaint: abdominal pain and flank pain Pertinent past history: kidney stones Onset (ago): day(s) (3) Pain Consistency: constant Location: LUQ and L flank Severity: severe Pain scale (0-10): 10 Quality: other (Pushing like pain) Radiation: L flank Exacerbating factors: nothing Relieving factors: nothing Associated symptoms: nausea, vomiting, diarrhea, chills and dysuria Related Data Home Medications Medication Instructions Recorded Confirmed albuterol sulfate 2.5 mg inhalation Q4-6H PRN 01/24/20 01/24/20 Shortness Of Breath citalopram 20 mg tablet 20 mg PO DAILY 01/24/20 01/24/20 elviteg 150 mg-cob 150 mg-emtricit 1 tab PO QPM 01/24/20 01/24/20 200 mg-tenofo alafenam 10 mg tablet (Genvoya) fluticasone propionate 110 1 puff inhalation BID 01/24/20 01/24/20 mcg/actuation HFA aerosol inhaler (Flovent HFA) gabapentin 300 mg tablet 300 mg PO TID 01/24/20 01/24/20 linaclotide 145 mcg capsule 145 mcg PO QAM 01/24/20 01/24/20 (Linzess) lisinopril 5 mg tablet 5 mg PO DAILY 01/24/20 01/24/20 rosuvastatin 20 mg tablet (Crestor) 20 mg PO DAILY 01/24/20 01/24/20 tizanidine 4 mg capsule 4 mg PO Q8H PRN Muscle Spasm 01/24/20 01/24/20 sertraline 100 mg tablet 100 mg PO DAILY 09/23/21 zolpidem 10 mg tablet 10 mg PO BEDTIME 09/23/21 Previous Rx's Medication Instructions Recorded cefuroxime axetil 250 mg tablet 250 mg PO BID #14 tabs 10/08/20 phenazopyridine 100 mg tablet 100 mg PO TID PRN pain #5 tabs 10/08/20 (Pyridium) omeprazole 20 mg capsule,delayed 20 mg PO DAILY #90 caps 02/17/21 release cefpodoxime 200 mg tablet 200 mg PO BID 10 days #20 tabs 06/08/21 levofloxacin 750 mg tablet 750 mg PO DAILY #5 tabs 06/12/21 levofloxacin 750 mg tablet 750 mg PO DAILY 5 days #5 tabs 10/01/21 morphine 15 mg immediate release 15 mg PO Q4-6H PRN pain #10 tabs 10/01/21 tablet ondansetron 4 mg disintegrating 4 mg PO Q6-8H PRN nausea and 10/01/21 tablet vomiting #14 tabs Allergies Allergy/AdvReac Type Severity Reaction Status Date / Time shellfish derived Allergy Intermediate HIVES, N/V Verified 09/23/21 13:50 Review of Systems Review of Systems Yes all other systems are reviewed and are negative [facility] Past Medical History [facility] Narrative: Social history: She denies tobacco, alcohol and drug use. Medical History Anemia Arthritis Asthma Depression Difficulty swallowing Elevated cholesterol Hepatitis History of blood transfusion HIV (human immunodeficiency virus infection) HTN (hypertension) Hx of renal calculi Sleep apnea Surgical History Hx of section Hx of cholecystectomy Hx of dilation and curettage Hx of reduction mammoplasty Hx of tubal ligation Family History Family History Mother Breast cancer Father Heart problem Sister Bone cancer Family/Other Diabetes Social History Social History Alcohol intake: never Patient Tobacco Use Status: Never used Tobacco Second Hand Smoke Exposure: No Advance Directives: No Advance Directives Information Provided: No Physical Exam ED Vital Signs: Vital Signs - 24 hr 10/01/21 09:42 10/01/21 12:34 Temperature 98 F 98.0 F Pulse Rate 80 60 Respiratory Rate 19 15 Blood Pressure 139/82 135/48 L Pulse Oximetry 98 99 Oxygen Delivery Method Room Air Room Air BMI result Body Mass Index 31.8 Const General: cooperative and no acute distress Orientation/consciousness: oriented to person and oriented to place Limitations: no limitations HENMT Head: Yes normal to inspection, Yes normocephalic and Yes atraumatic Ears: external ears normal General nose exam: Normal external nose present Face and sinus: Yes normal facial exam Mouth: Normal oral and palatal mucosa present Throat: Yes posterior oropharynx normal Eyes General: appearance normal, both eyes and all related structures Pupils: Equal, round and reactive pupils present Neck Neck: Yes normal visual inspection, Yes no lymphadenopathy, Yes trachea midline and Yes supple Chest Chest palpation & inspection: normal inspection of the chest and normal palpation of entire chest wall Resp Effort & Inspection: normal respiratory effort and able to speak in complete sentences Auscultation: clear to auscultation bilaterally Cardio Rate: regular rate Rhythm: regular rhythm Heart sounds: S1 normal heart sound present, S2 normal heart sound present and no murmurs GI Inspection: Yes normal to inspection Palpation (GI): Soft to palpation, Tenderness to palpation present (GI) in the LUQ (Moderate) and no guarding Auscultation: normal bowel sounds General: Yes CVA tenderness on the left (Moderate) Back/Spine/Pelvis Back: CVA tenderness Skin General skin exam: no rashes or lesions noted Neuro General: oriented to person and oriented to place Cranial nerves: Yes CN's II-XII intact bilaterally and Yes Equal, round and reactive pupils present Cognition (Neuro): normal cognition Motor exam (neuro): 5/5 motor strength present throughout Extrem General: Yes normal to inspection Psych Appearance: grossly normal Speech and movement: Normal speech and movement present Affect: normal affect Attitude: cooperative Thought process: Normal thought process present Thought content: Normal thought content present Course Course Course Narrative: 61-year-old female who presents emergency department for evaluation of nausea, vomiting, diarrhea, chills, occasional cough, shortness of breath and dysuria. She has also had left upper quadrant and left flank pain x3 days. Vital signs were normal. Physical examination did reveal left upper quadrant and left CVA tenderness. Laboratory evaluation revealed a normal CBC and comprehensive metabolic panel. Lipase was not elevated. Urinalysis revealed 3+ leukocyte esterase, positive nitrates. Microscopic revealed too numerous to count white blood cells and 2+ bacteria. Differential included but is not limited to urinary tract infection, renal colic, renal/ureteral stones. CT scan of the abdomen pelvis without contrast will be obtained. Patient was ordered to get normal saline x1 L, Toradol 15 mg IV, Zofran 4 mg IV. She is also treated with ceftriaxone 1 g IV. 1426: Radiology evaluation: CT scan of the abdomen pelvis without IV contrast did reveal multiple left-sided renal calculi measuring from 5 mm to 7 mm but no evidence for ureteral calculi or hydronephrosis. The patient's presentation and findings are most consistent with a urinary tract infection possible left renal colic secondary to pyelonephritis. I did review the patient's previous urine cultures and she does have a history of ESBL E coli which was sensitive to levofloxacin but not ceftriaxone. Therefore the patient was given levofloxacin 750 mg orally. The patient only got minimal relief of her pain with Toradol and she did get morphine 4 mg IV x2 with improvement of her discomfort. Patient was discharged home with a prescription for levofloxacin 750 mg daily x5 days. She will also be prescribed Zofran ODT for nausea and vomiting. She was advised to take Tylenol and ibuprofen for pain and for pain not relieved by these medications she was prescribed morphine. She was given printed and verbal instructions MDM - Abdominal Pain Lab Data Result diagrams: 10/01/21 09:57 10/01/21 09:57 Labs: Lab Results 10/01/21 10/01/21 10/01/21 Range/Units 09:57 09:57 09:57 WBC 7.4 (4.8-10.8) X10*3/uL RBC 4.88 (4.20-5.50) X10*6/uL Hgb 13.8 (12.0-16.0) g/dl Hct 43.5 (37.0-47.0) % MCV 89.1 (80.0-98.0) fL MCH 28.3 (27.0-33.0) pg MCHC 31.7 (31.0-35.0) g/dl RDW 13.5 (11.0-16.0) % Plt Count 233 (160-400) X10*3/uL MPV 10.1 (9.4-12.3) fL Immature Gran % (Auto) 0.3 (0.0-0.4) % Neut % (Auto) 75.7 H (45-73) % Lymph % (Auto) 18.7 L (20-40) % Orange % (Auto) 4.4 (2-11) % Eos % (Auto) 0.8 (0-4) % Baso % (Auto) 0.1 (0-2) % Lymph # (Auto) 1.4 (1.2-4.9) X10*3/uL Orange # (Auto) 0.3 (0.1-1.2) X10*3/uL Eos # (Auto) 0.1 (0.0-0.4) X10*3/uL Baso # (Auto) 0.0 (0.0-0.2) X10*3/uL Abs Immat Gran (auto) 0.02 (0.00-0.03) X10*3/uL Absolute Neuts (auto) 5.6 (2.0-8.3) x10*3/uL Absolute Nucleated RBC 0.000 (0.0-0.012) X10*3/uL Nucleated RBC % (auto) 0.0 (0.0-0.2) /100WBC Sodium 140 (135-145) mmol/L Potassium 3.7 (3.3-5.1) mmol/L Chloride 104 (96-108) mmol/L Carbon Dioxide 28 (22-29) mmol/L Anion Gap 12 (12-20) BUN 19 H (9-16) mg/dL Creatinine 1.02 (0.5-1.4) mg/dL Estim Creat Clear Calc 59.3 Estimated GFR 55 Random Glucose 116 H (60-115) mg/dL Calcium 9.5 (8.4-10.2) mg/dL Total Bilirubin 0.4 (0.0-1.0) mg/dL Direct Bilirubin 0.2 (0.0-0.5) mg/dL AST 16 D (5-31) U/L ALT 14 (0-31) U/L Alkaline Phosphatase 98 (39-117) U/L Total Protein 8.6 H (6.5-8.0) g/dL Albumin 4.0 (3.5-5.0) g/dL Lipase 19 (8-78) U/L Urine Color Urine Appearance Urine pH (5.0-8.0) Ur Specific Monroe (1.005-1.025) Urine Protein (NEG-TRACE) MG/DL Urine Glucose (UA) (NEG) MG/DL Urine Ketones (NEG) MG/DL Urine Blood (NEG) Urine Nitrite (NEG) Ur Leukocyte Esterase (NEG) Urine RBC (0) /HPF Urine WBC (0-4) /HPF Ur Squamous Epith Cells /LPF Calcium Oxalate Crystal /LPF Urine Bacteria /LPF Urine Mucus /LPF COVID-19 (JONH) (Negative) COVID-19 Clin Com Influenza Type A (STEVEN) Negative (Negative) Influenza Type B (STEVEN) Negative (Negative) Influenza A & B Note See Note 10/01/21 10/01/21 Range/Units 09:57 09:57 WBC (4.8-10.8) X10*3/uL RBC (4.20-5.50) X10*6/uL Hgb (12.0-16.0) g/dl Hct (37.0-47.0) % MCV (80.0-98.0) fL MCH (27.0-33.0) pg MCHC (31.0-35.0) g/dl RDW (11.0-16.0) % Plt Count (160-400) X10*3/uL MPV (9.4-12.3) fL Immature Gran % (Auto) (0.0-0.4) % Neut % (Auto) (45-73) % Lymph % (Auto) (20-40) % Orange % (Auto) (2-11) % Eos % (Auto) (0-4) % Baso % (Auto) (0-2) % Lymph # (Auto) (1.2-4.9) X10*3/uL Orange # (Auto) (0.1-1.2) X10*3/uL Eos # (Auto) (0.0-0.4) X10*3/uL Baso # (Auto) (0.0-0.2) X10*3/uL Abs Immat Gran (auto) (0.00-0.03) X10*3/uL Absolute Neuts (auto) (2.0-8.3) x10*3/uL Absolute Nucleated RBC (0.0-0.012) X10*3/uL Nucleated RBC % (auto) (0.0-0.2) /100WBC Sodium (135-145) mmol/L Potassium (3.3-5.1) mmol/L Chloride (96-108) mmol/L Carbon Dioxide (22-29) mmol/L Anion Gap (12-20) BUN (9-16) mg/dL Creatinine (0.5-1.4) mg/dL Estim Creat Clear Calc Estimated GFR Random Glucose (60-115) mg/dL Calcium (8.4-10.2) mg/dL Total Bilirubin (0.0-1.0) mg/dL Direct Bilirubin (0.0-0.5) mg/dL AST (5-31) U/L ALT (0-31) U/L Alkaline Phosphatase (39-117) U/L Total Protein (6.5-8.0) g/dL Albumin (3.5-5.0) g/dL Lipase (8-78) U/L Urine Color YELLOW Urine Appearance CLOUDY Urine pH 6.0 (5.0-8.0) Ur Specific Monroe 1.020 (1.005-1.025) Urine Protein TRACE (NEG-TRACE) MG/DL Urine Glucose (UA) NEG (NEG) MG/DL Urine Ketones NEG (NEG) MG/DL Urine Blood TRACE (NEG) Urine Nitrite POS H (NEG) Ur Leukocyte Esterase 3+ H (NEG) Urine RBC 1-4 (0) /HPF Urine WBC TNTC H (0-4) /HPF Ur Squamous Epith Cells 1+ /LPF Calcium Oxalate Crystal 1+ /LPF Urine Bacteria 2+ /LPF Urine Mucus 1+ /LPF COVID-19 (JONH) Negative (Negative) COVID-19 Clin Com See Note Influenza Type A (STEVEN) (Negative) Influenza Type B (STEVEN) (Negative) Influenza A & B Note Discharge Plan Discharge Clinical Impression: Pyelonephritis, Renal colic, Volume depletion Vomiting Qualifiers: Vomiting type: unspecified Nausea presence: with nausea Qualified Code(s): R11.2 - Nausea with vomiting, unspecified Diarrhea Qualifiers: Diarrhea type: unspecified type Qualified Code(s): R19.7 - Diarrhea, unspecified Patient Disposition: Home, Self-Care Instructions: Kidney Infection (ED), Acute Nausea and Vomiting (ED) Additional Instructions: Your blood work was normal. Your COVID-19 and influenza tests were negative. The CT scan of your abdomen pelvis without IV contrast did reveal stones in your left kidney but these are not the cause of your pain. Your urine is consistent with a urine infection. Your pain is most likely caused by a kidney infection, this is also causing the nausea, vomiting and diarrhea. You were treated with ceftriaxone 1 g IV levofloxacin 750 mg orally. Take levofloxacin 750 mg once a day for 5 days, take your next dose tomorrow morning. Take Zofran ODT 4 mg pills, 1 pill dissolved in your mouth every 8 hours as needed for nausea and vomiting. Take ibuprofen 200 mg pills, 3 pills every 6 hours as needed for pain. Take Tylenol (acetaminophen) 2 pills every 4-6 hours as needed for pain. For pain not relieved by ibuprofen or Tylenol take morphine 15 mg pills, 1 pill every 4 hours as needed for pain. This medication will make you sleepy, do not drive or work while taking this medication. Morphine is a narcotic medication and can be addicting. If you are concerned about addiction you can ask the pharmacist for less pills or do not get this prescription filled. DO NOT TAKE YOUR AMBIEN (ZOLPIDEM) WHILE YOU ARE TAKING MORPHINE. Follow-up with your doctor in 2 days. Please return to the emergency department if your symptoms get worse or if you develop any symptoms that are concerning to you. Prescriptions: New levofloxacin 750 mg tablet 750 mg PO DAILY 5 Days Qty: 5 0RF morphine 15 mg tablet 15 mg PO Q4-6H PRN (Reason: pain) Qty: 10 0RF Rx Instructions: The patient may ask for partial fill; Partial Fill upon patient request. ondansetron 4 mg tablet,disintegrating 4 mg PO Q6-8H PRN (Reason: nausea and vomiting) Qty: 14 0RF No Action omeprazole 20 mg capsule,delayed release(DR/EC) 20 mg PO DAILY Qty: 90 0RF albuterol sulfate 2.5 mg /3 mL (0.083 %) Solution For Nebulization 2.5 mg INHALATION Q4-6H PRN (Reason: Shortness Of Breath) citalopram 20 mg Tablet 20 mg PO DAILY lisinopril 5 mg Tablet 5 mg PO DAILY Flovent HFA 110 mcg/actuation Hfa Aerosol Inhaler 1 puff INHALATION BID rosuvastatin [Crestor] 20 mg Tablet 20 mg PO DAILY gabapentin 300 mg Tablet 300 mg PO TID tizanidine 4 mg Capsule 4 mg PO Q8H PRN (Reason: Muscle Spasm) Linzess 145 mcg Capsule 145 mcg PO QAM Genvoya [phone] mg Tablet 1 tab PO QPM cefuroxime axetil 250 mg tablet 250 mg PO BID Qty: 14 0RF phenazopyridine [Pyridium] 100 mg tablet 100 mg PO TID PRN (Reason: pain) Qty: 5 0RF cefpodoxime 200 mg tablet 200 mg PO BID 10 Days Qty: 20 0RF Rx Instructions: must administer with a meal/food levofloxacin 750 mg tablet 750 mg PO DAILY Qty: 5 0RF zolpidem 10 mg tablet 10 mg PO BEDTIME sertraline 100 mg tablet 100 mg PO DAILY Print Language: Kenyan
[2021-10-01] MEDS: 0.9 % Sodium Chloride 1,000 ML 999 ML IV (11:55)
[2021-10-01] MEDS: ondansetron HCL 4 MG/2 ML VIAL IVPUSH (11:55)
[2021-10-01] MEDS: cefTRIAXone sodium 1 GM in 0.9 % Sodium Chloride 50 ML IV (11:55)
[2021-10-01] MEDS: Ketorolac Tromethamine 15 MG/ML VIAL IVPUSH (11:55)
[2021-10-01 12:34] VITALS: BP 135/48; PULSE 60; RESP 15; TEMP 36.7; O2SAT 99
[2021-10-01] MEDS: levoFLOXacin 750 MG TABLET PO (12:57)
[2021-10-01] MEDS: Morphine Sulfate 4 MG/ML CARTRIDGE IVPUSH ×2 (12:57→15:09)
[2021-10-01 15:07] VITALS: BP 117/61; PULSE 63; RESP 16; TEMP 36.2; O2SAT 92
== END 2021-10-01 15:28 | disposition home or self-care (01) ==
PROVIDERS: Emergency Provider Emergency Medicine Emergency Medical Services; PCP Internal Medicine
DX: N12 Tubulo-interstitial nephritis, not specified as acute or chronic (principal); E86.9 Volume depletion, unspecified; R11.2 Nausea with vomiting, unspecified; R19.7 Diarrhea, unspecified; I10 Essential (primary) hypertension; J45.909 Unspecified asthma, uncomplicated; Z21 Asymptomatic human immunodeficiency virus [HIV] infection status; Z87.442 Personal history of urinary calculi; Z20.822 Contact with and (suspected) exposure to COVID-19
CPT/HCPCS: 74176; 80048; 80076; 81001; 83690; 85025; 87086; 87502; 87635; 99284; 99285; J0696; J1885; J2270; J2405

== ENCOUNTER → 2021-11-07 12:24 | Outpatient (BNVA) | payer MEDICAID, SELFPAY | PROVIDERS: PCP Internal Medicine; Referring Provider Internal Medicine; Visit Provider Nurse Practitioner | DX: K59.04 Chronic idiopathic constipation (principal) | CPT/HCPCS: 99212 ==

== ENCOUNTER 2021-11-25 09:48 | Outpatient (REF) | payer MEDICAID, SELFPAY ==
--- NOTE | ~2021-11-25 | US_ITS ---
EXAMINATION: BILATERAL LOWER EXTREMITY VENOUS ULTRASOUND (REFLUX EXAM) CLINICAL INDICATION: Varicose veins of the right lower extremity with inflammation. COMPARISON: None. TECHNIQUE: Color flow triplex imaging and compression Doppler was performed to evaluate both the deep and the superficial systems bilaterally. To evaluate the superficial system, the examination was performed in the upright position. Color-flow Doppler ultrasound and compression ultrasound were utilized. In addition, maneuvers were utilized to demonstrate reflux. FINDINGS: SUPERFICIAL ULTRASOUND WITH DOPPLER OF RIGHT LOWER EXTREMITY GREAT SAPHENOUS VEIN: Saphenofemoral junction: 7 mm. Max diameter: 7 mm. Min diameter: 2 mm. Reflux: There is segmental reflux at the midcalf up to 3.1 seconds. DUPLICATED MEDIAL GREAT SAPHENOUS VEIN: Max Diameter: None Imaged. Reflux: NA. DUPLICATED LATERAL GREAT SAPHENOUS VEIN: Diameter: 3 mm at the saphenofemoral junction. Reflux: None. SMALL SAPHENOUS VEIN: Proximal Calf: 3 mm. Distal Calf: 2 mm. Reflux: There is greater than 0.5 seconds of reflux within the proximal calf. VEIN OF GIACOMINI: None Imaged. PERFORATORS: Location: Right mid calf measuring 2 mm. Reflux: There is greater than 5 milliseconds of reflux within this punch out crew member. VARICOSITIES: Location: None Imaged. Reflux: NA. DEEP VENOUS ULTRASOUND OF THE RIGHT LOWER EXTREMITY: COMMON FEMORAL VEIN: Compressible, normal respiratory variation and augmented flow. FEMORAL VEIN: Compressible, normal color flow and augmentation. POPLITEAL VEIN: Compressible, normal augmentation. DEEP REFLUX: There is no evidence of reflux in the deep system in either the common femoral vein or the popliteal vein. SANTOS'S CYST: There is no evidence of a Santos's cyst. SUPERFICIAL ULTRASOUND WITH DOPPLER OF LEFT LOWER EXTREMITY GREAT SAPHENOUS VEIN: Saphenofemoral junction: 7 mm. Max diameter: 7 mm. Min diameter: 1 mm. Reflux: No evidence of reflux. DUPLICATED MEDIAL GREAT SAPHENOUS VEIN: Max Diameter: None Imaged. Reflux: NA. DUPLICATED LATERAL GREAT SAPHENOUS VEIN: Diameter: 2 mm at the junction. Reflux: None. SMALL SAPHENOUS VEIN: Proximal Calf: 3 mm. Distal Calf: 2 mm. Reflux: No evidence of reflux. VEIN OF GIACOMINI: None Imaged. PERFORATORS: Location: None Imaged. Reflux: NA. VARICOSITIES: Location: None Imaged. Reflux: NA. DEEP VENOUS ULTRASOUND OF THE LEFT LOWER EXTREMITY: COMMON FEMORAL VEIN: Compressible, normal respiratory variation and augmented flow. FEMORAL VEIN: Compressible, normal color flow and augmentation. POPLITEAL VEIN: Compressible, normal augmentation. DEEP REFLUX: There is no evidence of reflux in the deep system in either the common femoral vein or the popliteal vein. SANTOS'S CYST: There is no evidence of a Santos's cyst. US/US venous duplex LE BI IMPRESSION: 1. Segmental right great saphenous venous insufficiency at the midcalf. 2. No evidence of left great saphenous venous insufficiency. 3. Right small saphenous venous insufficiency beginning in the proximal calf. 4. No evidence of left small saphenous venous insufficiency. 5. No evidence of DVT or deep venous insufficiency.
== END 2021-11-25 09:49 | disposition home or self-care (01) ==
LOC: HO.US 09:48
PROVIDERS: Visit Provider Surgery Vascular Surgery
DX: I83.11 Varicose veins of right lower extremity with inflammation (principal)
CPT/HCPCS: 93970

== ENCOUNTER → 2022-01-15 12:31 | Outpatient (BNVA) | payer MEDICAID, SELFPAY | PROVIDERS: PCP Internal Medicine; Visit Provider Surgery Vascular Surgery | DX: I83.11 Varicose veins of right lower extremity with inflammation (principal) | CPT/HCPCS: 99212 ==

== ENCOUNTER → 2022-01-23 07:13 | Outpatient (BNVA) | payer MEDICAID, SELFPAY | PROVIDERS: PCP Internal Medicine; Visit Provider Surgery Vascular Surgery | DX: I83.11 Varicose veins of right lower extremity with inflammation (principal) | CPT/HCPCS: 36475 ==

== ENCOUNTER 2022-01-27 09:44 | Outpatient (REF) | payer MEDICAID, SELFPAY ==
--- NOTE | ~2022-01-27 | US_ITS ---
EXAMINATION: US VENOUS ULTRASOUND WITH DOPPLER LOWER EXTREMITY, RIGHT CLINICAL INFORMATION: Pain right leg COMPARISON: None TECHNIQUE: Ultrasound of the deep veins is performed from the hip to the calf with compression sonography and color and pulse Doppler assessment. Spectral analysis with color-flow imaging is performed. FINDINGS: There is normal venous compression and respiratory variation and augmented flow. The visualized common femoral vein, superficial femoral vein, profunda femoral vein, popliteal vein, and the trifurcation region shows no evidence of deep venous thrombosis. There is no significant popliteal fossa cyst. If the patient's symptoms persist, followup ultrasound in 5 days 7 days might be of value to exclude proximal propagation from a non-visualized calf vein. US/US venous duplex LE RT IMPRESSION: No DVT demonstrated in the right lower extremity.
== END 2022-01-27 09:45 | disposition home or self-care (01) ==
LOC: HO.US 09:44
PROVIDERS: Visit Provider Surgery Vascular Surgery
DX: M79.604 Pain in right leg (principal)
CPT/HCPCS: 93971

== ENCOUNTER → 2022-03-03 10:32 | Outpatient (BNVA) | payer MEDICAID, SELFPAY | PROVIDERS: PCP Internal Medicine; Visit Provider Surgery Vascular Surgery | DX: I83.11 Varicose veins of right lower extremity with inflammation (principal) | CPT/HCPCS: 99212 ==

== ENCOUNTER → 2022-05-21 12:37 | Outpatient (BNVA) | payer MEDICAID, SELFPAY | PROVIDERS: PCP Internal Medicine; Visit Provider Nurse Practitioner | DX: K59.04 Chronic idiopathic constipation (principal); R14.0 Abdominal distension (gaseous); Z86.010 Personal history of colon polyps; Z79.899 Other long term (current) drug therapy | CPT/HCPCS: 99212 ==

== ENCOUNTER 2022-05-30 12:02 | Emergency (ER) | payer MEDICAID, SELFPAY ==
--- NOTE | ~2022-05-30 | CT_ITS ---
EXAMINATION: CT CHEST WITHOUT CONTRAST CLINICAL INFORMATION: History of HIV rule out pneumonia COMPARISON: CT angiogram from 06/08/2021 TECHNIQUE: Multidetector volumetric CT imaging of the chest was done. Axial MIP volume rendering provided. Sagittal and coronal reformatted images were obtained. This CT examination was performed using dose optimization techniques as appropriate, variously including the following: *Automated exposure control *Adjustment of mA and/or kV according to patient size (this includes techniques or standardized protocols for targeted exams where dose is matched to indication/reason for exam; i.e. 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 MEDIASTINUM: The mediastinum is normal. CORONARY ARTERY CALCIFICATION: None visualized on this study. PLEURA: There is no pleural effusion. No pleural mass or thickening. AXILLA: No lymphadenopathy. UPPER ABDOMEN: Gallbladder is surgically absent. There is an exophytic 5.1 x 4.1 cm cyst in the upper pole of left kidney OSSEOUS STRUCTURES: Unremarkable. CT/CT chest wo IV con IMPRESSION: 1. Groundglass opacity infiltrates in the left lower lobe and right lower lobe stable since previous study. 2. Left renal cyst. Fleischner guidelines were followed.
--- NOTE | ~2022-05-30 | XR_ITS ---
EXAMINATION: XR chest 2V CLINICAL INFORMATION: Reason for Exam cp/sob COMPARISON: Chest radiograph 06/08/2021 TECHNIQUE: 2 views of the chest FINDINGS: Clear lungs. No pneumothorax or pleural effusion. Normal cardiomediastinal silhouette. Right upper quadrant cholecystectomy clips. XR/XR chest 2V IMPRESSION: * Clear lungs.
--- NOTE | 2022-05-30 12:06 | ECG_ITS ---
Test Reason : CP/BACK PAIN Blood Pressure : / mmHG Vent. Rate : 085 BPM Atrial Rate : 085 BPM P-R Int : 144 ms QRS Dur : 086 ms QT Int : 378 ms P-R-T Axes : 061 -59 029 degrees QTc Int : 449 ms Normal sinus rhythm Left anterior fascicular block Abnormal ECG When compared with ECG of 08-JUN-2021 14:04, Vent. rate has increased BY 32 BPM Referred By: Karla Ardon Electronically Signed By:AZEEM FLANAGAN MD
[2022-05-30 12:30] VITALS: BP 135/62; PULSE 77; RESP 18; TEMP 36.6; O2SAT 98; BMI 31.4
--- NOTE | 2022-05-30 12:31 | ED.CHESTPAIN ---
HPI - Chest Pain General Chief Complaint: General Medical <GIRISH Rankin - Last Filed: 05/30/22 12:46> Stated Complaint: chest/ back pain <GIRISH Rankin - Last Filed: 05/30/22 12:46> Time Seen by Provider: 05/30/22 15:28 <GIRISH Rankin - Last Filed: 05/30/22 12:46> Source: patient and wire chief <Colleen Murphy NP - Last Filed: 05/30/22 17:22> Mode of arrival: ambulatory <Colleen Murphy NP - Last Filed: 05/30/22 17:22> Limitations: language barrier <Colleen Murphy NP - Last Filed: 05/30/22 17:22> History of Present Illness HPI narrative: 62-year-old Macanese-speaking female with past medical history of kidney stones, HIV, hypertension, osteoarthritis, asthma, obstructive sleep apnea here with complaints of 4 days of productive cough with green sputum, shortness of breath, wheezing, chest and back pain with coughing only. no fevers, chills, leg swelling or leg pain. No dizziness or palpitations. Patient reports that she does have a history of HIV and takes genvoya. her viral load is undetectable per patient. She has been using her albuterol MDI and nebulizer with continued symptoms. <Colleen Murphy NP - Last Filed: 05/30/22 17:22> Related Data Home Medications: Home Medications Medication Instructions Recorded Confirmed albuterol sulfate 2.5 mg/3 mL 2.5 mg inhalation Q4-6H PRN 01/24/20 01/24/20 (0.083 %) solution for nebulization Shortness Of Breath citalopram 20 mg tablet 20 mg PO DAILY 01/24/20 01/24/20 elviteg 150 mg-cob 150 mg-emtricit 1 tab PO QPM 01/24/20 01/24/20 200 mg-tenofo alafenam 10 mg tablet (Genvoya) fluticasone propionate 110 1 puff inhalation BID 01/24/20 01/24/20 mcg/actuation HFA aerosol inhaler (Flovent HFA) gabapentin 300 mg tablet 300 mg PO TID 01/24/20 01/24/20 lisinopril 5 mg tablet 5 mg PO DAILY 01/24/20 01/24/20 rosuvastatin 20 mg tablet (Crestor) 20 mg PO DAILY 01/24/20 01/24/20 tizanidine 4 mg capsule 4 mg PO Q8H PRN Muscle Spasm 01/24/20 01/24/20 sertraline 100 mg tablet 100 mg PO DAILY 09/23/21 zolpidem 10 mg tablet 10 mg PO BEDTIME 09/23/21 Previous Rx's Medication Instructions Recorded ondansetron 4 mg disintegrating 4 mg PO Q6-8H PRN nausea and 10/01/21 tablet vomiting #14 tabs linaclotide 145 mcg capsule 145 mcg PO QAM #30 caps 11/07/21 (Linzess) simethicone 180 mg capsule 180 mg PO QID 30 days #120 caps 05/21/22 cefpodoxime 200 mg tablet 200 mg PO BID #14 tabs 05/30/22 doxycycline monohydrate 100 mg 100 mg PO BID #14 caps 05/30/22 capsule <GIRISH Rankin - Last Filed: 05/30/22 12:46> Allergies/Adverse Reactions: Allergies Allergy/AdvReac Type Severity Reaction Status Date / Time shellfish derived Allergy Intermediate HIVES, N/V Verified 05/21/22 13:36 <GIRISH Rankin - Last Filed: 05/30/22 12:46> Review of Systems Review of Systems: Yes all other systems are reviewed and are negative <Colleen Murphy NP - Last Filed: 05/30/22 17:22> Constitutional: Constitutional: Reports no additional constitutional complaints, Denies body ache(s), Denies chills, Denies fever(s), Denies headache(s) and Denies weakness <Colleen Murphy NP - Last Filed: 05/30/22 17:22> Eyes: Eyes: Reports no additional eye complaints and Denies change in vision <Colleen Murphy NP - Last Filed: 05/30/22 17:22> ENT: Reports system reviewed and no additional complaints, except as documented, Reports dizziness, Denies headache(s), Denies nasal congestion, Denies nasal discharge and Denies neck pain <Colleen Murphy NP - Last Filed: 05/30/22 17:22> Cardiovascular: Cardiovascular: Reports no additional cardiovascular complaints, Reports chest pain, Denies leg edema and Reports dyspnea <Colleen Murphy NP - Last Filed: 05/30/22 17:22> Respiratory: Respiratory: Reports no additional respiratory complaints, Reports cough and Reports dyspnea <Colleen Murphy NP - Last Filed: 05/30/22 17:22> Gastrointestinal: Gastrointestinal: Reports no additional gastrointestinal complaints, Denies abdominal pain, Denies diarrhea, Denies nausea and Denies vomiting <Colleen Murphy NP - Last Filed: 05/30/22 17:22> Genitourinary: Genitourinary: Reports no additional female genitourinary complaints and Denies urinary incontinence <Colleen Murphy NP - Last Filed: 05/30/22 17:22> Musculoskeletal: Musculoskeletal: Reports no additional musculoskeletal complaints, Reports back pain, Denies arthralgias, Denies joint swelling, Denies neck pain, Denies numbness and Denies tingling <Colleen Murphy NP - Last Filed: 05/30/22 17:22> Integumentary/Breasts: Skin/Breast: Reports system reviewed and no additional complaints, except as docu and Denies rash <Colleen Murphy NP - Last Filed: 05/30/22 17:22> Neurologic: Reports system reviewed and no additional complaints, except as documented, Denies Abnormal speech present, Reports dizziness, Denies headache(s), Denies numbness, Denies tingling and Denies weakness <Colleen Murphy NP - Last Filed: 05/30/22 17:22> [facility] Past Medical History Attestation statement: The following information was validated with the patient. <Colleen Murphy NP - Last Filed: 05/30/22 17:22> Source: old records reviewed and nursing notes reviewed <Colleen Murphy NP - Last Filed: 05/30/22 17:22> Medical History: Medical History Anemia Arthritis Asthma Depression Difficulty swallowing Elevated cholesterol GERD (gastroesophageal reflux disease) Hepatitis History of blood transfusion HIV (human immunodeficiency virus infection) HTN (hypertension) Hx of renal calculi Sleep apnea <GIRISH Rankin - Last Filed: 05/30/22 12:46> Surgical History: Surgical History Hx of section Hx of cholecystectomy Hx of colonoscopy Hx of dilation and curettage Hx of reduction mammoplasty Hx of tubal ligation <GIRISH Rankin - Last Filed: 05/30/22 12:46> Family History Family History: Family History Mother Breast cancer Father Heart problem Sister Bone cancer Family/Other Diabetes <GIRISH Rankin - Last Filed: 05/30/22 12:46> Social History Social History: Social History Alcohol intake: never Patient Tobacco Use Status: Never used Tobacco Second Hand Smoke Exposure: No Advance Directives: No Advance Directives Information Provided: Yes <GIRISH Rankin - Last Filed: 05/30/22 12:46> Physical Exam Vital Signs: Vital Signs: Last Vital Signs Temp 97.9 F 05/30/22 12:30 Pulse 77 05/30/22 12:30 Resp 18 05/30/22 15:50 BP 135/62 05/30/22 12:30 Pulse Ox 98 05/30/22 12:30 O2 Del Method 05/30/22 12:30 BMI result Body Mass Index 31.4 <GIRISH Rankin - Last Filed: 05/30/22 12:46> Vital Signs: Last Vital Signs Temp 97.9 F 05/30/22 12:30 Pulse 77 05/30/22 12:30 Resp 18 05/30/22 15:50 BP 135/62 05/30/22 12:30 Pulse Ox 98 05/30/22 12:30 O2 Del Method 05/30/22 12:30 BMI result Body Mass Index 31.4 <Colleen Murphy NP - Last Filed: 05/30/22 17:22> Const: General: cooperative, healthy appearing, comfortable and no acute distress <Colleen Murphy NP - Last Filed: 05/30/22 17:22> Orientation/consciousness: patient oriented x3 <Colleen Murphy SUPERIOR COURT JUSTICE - Last Filed: 05/30/22 17:22> Limitations: no limitations <Colleen Murphy, SUPERIOR COURT JUSTICE - Last Filed: 05/30/22 17:22> HEENT: Head: Yes normal to inspection <Colleen Murphy SUPERIOR COURT JUSTICE - Last Filed: 05/30/22 17:22> Ears: hearing grossly normal bilaterally <Colleen Murphy, SUPERIOR COURT JUSTICE - Last Filed: 05/30/22 17:22> General nose exam: Normal external nose present <Colleen Murphy SUPERIOR COURT JUSTICE - Last Filed: 05/30/22 17:22> Face and sinus: Yes normal facial exam <Colleen Murphy, SUPERIOR COURT JUSTICE - Last Filed: 05/30/22 17:22> Mouth: Normal oral and palatal mucosa present <Colleen Murphy SUPERIOR COURT JUSTICE - Last Filed: 05/30/22 17:22> Throat: Yes posterior oropharynx normal <Colleen Murphy, SUPERIOR COURT JUSTICE - Last Filed: 05/30/22 17:22> Eyes: General: appearance normal, both eyes and all related structures <Colleen Murphy SUPERIOR COURT JUSTICE - Last Filed: 05/30/22 17:22> Pupils: Equal, round and reactive pupils present <Colleen Murphy SUPERIOR COURT JUSTICE - Last Filed: 05/30/22 17:22> Neck: Neck: Yes normal visual inspection <Colleen Murphy SUPERIOR COURT JUSTICE - Last Filed: 05/30/22 17:22> Chest: Chest palpation & inspection: normal inspection of the chest <Colleen Murphy SUPERIOR COURT JUSTICE - Last Filed: 05/30/22 17:22> Resp: Other: right-side clear, left rhonchi, mild wheezing <Colleen Murphy SUPERIOR COURT JUSTICE - Last Filed: 05/30/22 17:22> Effort & Inspection: normal respiratory effort <Colleen Murphy SUPERIOR COURT JUSTICE - Last Filed: 05/30/22 17:22> Cardio: Rate: regular rate <Colleen uMrphy SUPERIOR COURT JUSTICE - Last Filed: 05/30/22 17:22> Rhythm: regular rhythm <Colleen Murphy SUPERIOR COURT JUSTICE - Last Filed: 05/30/22 17:22> Peripheral pulses: Peripheral pulses 2+ throughout <Colleen Murphy SUPERIOR COURT JUSTICE - Last Filed: 05/30/22 17:22> GI: Inspection: Yes normal to inspection <Colleen Murphy SUPERIOR COURT JUSTICE - Last Filed: 05/30/22 17:22> Palpation (GI): Soft to palpation and nontender <Colleen Murphy SUPERIOR COURT JUSTICE - Last Filed: 05/30/22 17:22> Auscultation: normal bowel sounds <Colleen Murphy, SUPERIOR COURT JUSTICE - Last Filed: 05/30/22 17:22> Back/Spine/Pelvis: Thoracic/Lumbar Spine: thoracic and lumbar spine normal to inspection <Colleen Murphy SUPERIOR COURT JUSTICE - Last Filed: 05/30/22 17:22> Skin: General skin exam: no rashes or lesions noted <Colleen Murphy SUPERIOR COURT JUSTICE - Last Filed: 05/30/22 17:22> Neuro: General: patient oriented x3, no focal motor deficits and normal sensation to monofilament <Colleen Murphy SUPERIOR COURT JUSTICE - Last Filed: 05/30/22 17:22> Cranial nerves: Yes Equal, round and reactive pupils present <Colleen Murphy, SUPERIOR COURT JUSTICE - Last Filed: 05/30/22 17:22> Cognition (Neuro): normal cognition <Colleen Murphy SUPERIOR COURT JUSTICE - Last Filed: 05/30/22 17:22> Speech: No Abnormal speech present <Colleen Murphy SUPERIOR COURT JUSTICE - Last Filed: 05/30/22 17:22> Gait exam (Neuro): Normal gait present <Colleen Murphy SUPERIOR COURT JUSTICE - Last Filed: 05/30/22 17:22> Motor exam (neuro): 5/5 motor strength present throughout <Colleen Murphy, SUPERIOR COURT JUSTICE - Last Filed: 05/30/22 17:22> Extrem: General: Yes normal to inspection, Yes no pedal edema and Yes no calf tenderness <Colleen Murphy SUPERIOR COURT JUSTICE - Last Filed: 05/30/22 17:22> Course Course Course Narrative: HORACIO 12:35PM - 62yoF who is Macanese-speaking with a past medical history of asthma, COPD/emphysema, HIV, hypertension, hyperlipidemia, GERD, arthritis, anemia who is presenting to the ER with complaints of chest pain, back pain, worsening shortness of breath with a productive cough with green-colored sputum over the past month. Reports that she followed up with a doctor in [place] approximately 1 month ago and was told she had emphysema and since then she feels like her symptoms are worsening. Denies any fevers, orthopnea, leg swelling, or abdominal pain or any other symptoms complaints or concerns at this time. Plan: Labs, EKG, chest x-ray, COVID/RSV/flu swab ordered at this time. Patient sent back to the waiting room to be evaluated in the ED. <GIRISH Rankin - Last Filed: 05/30/22 12:46> Medications Administered Discontinued Medications Generic Name Dose Route Start Last Admin Trade Name Freq PRN Reason Stop Dose Admin Albuterol/Ipratropium 3 ml 05/30/22 15:39 05/30/22 15:50 Albuterol/Iprat 2.5/0.5mg 3 Ml Ampul.Neb INHALE 05/30/22 15:40 3 ml ONCE ONE Administration <GIRISH Rankin - Last Filed: 05/30/22 12:46> Medications Administered Discontinued Medications Generic Name Dose Route Start Last Admin Trade Name Freq PRN Reason Stop Dose Admin Albuterol/Ipratropium 3 ml 05/30/22 15:39 05/30/22 15:50 Albuterol/Iprat 2.5/0.5mg 3 Ml Ampul.Neb INHALE 05/30/22 15:40 3 ml ONCE ONE Administration <Colleen Murphy NP - Last Filed: 05/30/22 17:22> Medical Decision Making Medical Decision Making MDM Narrative: 62-year-old Macanese-speaking female with past medical history of kidney stones, HIV, hypertension, osteoarthritis, asthma, obstructive sleep apnea here with complaints Of 4 days of productive cough with green sputum, shortness of breath, wheezing, chest and back pain with coughing only. on arrival vitals stable. Lungs with rhonchi on the left side with mild wheezing. will obtain EKG, chest x-ray, labs, COVID screen. Will give DuoNeb. <Colleen Murphy NP - Last Filed: 05/30/22 17:22> Differential Diagnosis Differential Diagnoses: The differential diagnosis associated with the presentation includes <Colleen Murphy NP - Last Filed: 05/30/22 17:22> Pneumonia, viral syndrome, asthma exacerbation Less likely PE with D-dimer that is negative, no clinical findings concerning for DVT, no hypoxia, no tachypnea, no tachycardia <Colleen Murphy NP - Last Filed: 05/30/22 17:22> Admission/Observation Consideration of admission/observation: Escalation of care including admission/observation considered <Colleen Murphy NP - Last Filed: 05/30/22 17:22> patient with HIV with undetectable viral load on antivirals with pneumonia on chest CT. Patient overall nontoxic, no leukocytosis, no fever, no hypoxia. No recent admissions for pneumonia or treatment with oral antibiotics. Patient can be discharged home with oral antibiotics with recommendations to return for any worsening symptoms. <Colleen Murphy NP - Last Filed: 05/30/22 17:22> Lab Data MDM Lab Attestation statement: I reviewed the patient's lab results. <Colleen Murphy NP - Last Filed: 05/30/22 17:22> Result Diagrams: 05/30/22 14:19 05/30/22 14:19 <GIRISH Rankin - Last Filed: 05/30/22 12:46> Labs: Lab Results 05/30/22 05/30/22 05/30/22 Range/Units 14:19 14:19 14:19 WBC 7.1 (4.8-10.8) X10*3/uL RBC 4.29 (4.20-5.50) X10*6/uL Hgb 12.7 (12.0-16.0) g/dl Hct 39.0 (37.0-47.0) % MCV 90.9 (80.0-98.0) fL MCH 29.6 (27.0-33.0) pg MCHC 32.6 (31.0-35.0) g/dl RDW 13.8 (11.0-16.0) % Plt Count 211 (160-400) X10*3/uL MPV 10.6 (9.4-12.3) fL Immature Gran % (Auto) 0.3 (0.0-0.4) % Neut % (Auto) 70.9 (45-73) % Lymph % (Auto) 19.7 L (20-40) % Morton % (Auto) 7.4 (2-11) % Eos % (Auto) 1.6 (0-4) % Baso % (Auto) 0.1 (0-2) % Lymph # (Auto) 1.4 (1.2-4.9) X10*3/uL Morton # (Auto) 0.5 (0.1-1.2) X10*3/uL Eos # (Auto) 0.1 (0.0-0.4) X10*3/uL Baso # (Auto) 0.0 (0.0-0.2) X10*3/uL Abs Immat Gran (auto) 0.02 (0.00-0.03) X10*3/uL Absolute Neuts (auto) 5.0 (2.0-8.3) x10*3/uL Absolute Nucleated RBC 0.000 (0.0-0.012) X10*3/uL Nucleated RBC % (auto) 0.0 (0.0-0.2) /100WBC PT 11.8 (10.0-13.1) SEC INR 1.0 (0.9-1.1) D-Dimer High Sensitivty < 150 NG/ML Sodium 141 (135-145) mmol/L Potassium 4.5 D (3.3-5.1) mmol/L Chloride 106 (96-108) mmol/L Carbon Dioxide 27 (22-29) mmol/L Anion Gap 13 (12-20) BUN 17 H (9-16) mg/dL Creatinine 0.82 (0.5-1.4) mg/dL Estim Creat Clear Calc 72.4 Estimated GFR > 60 Random Glucose 86 (60-115) mg/dL Calcium 9.4 (8.4-10.2) mg/dL Magnesium 2.3 (1.6-2.6) mg/dL Total Bilirubin 0.4 (0.0-1.0) mg/dL AST 17 (5-31) U/L ALT 11 (0-31) U/L Alkaline Phosphatase 86 (39-117) U/L Troponin I High Sens (<3.5-17.0) ng/L Total Protein 8.0 (6.5-8.0) g/dL Albumin 4.1 (3.5-5.0) g/dL Influenza Type A (PCR) (Negative) Influenza Type B (PCR) (Negative) RSV RNA Qual (PCR) (Negative) SARS-CoV-2 RNA (RT-PCR) (Negative) 05/30/22 05/30/22 Range/Units 14:19 14:19 WBC (4.8-10.8) X10*3/uL RBC (4.20-5.50) X10*6/uL Hgb (12.0-16.0) g/dl Hct (37.0-47.0) % MCV (80.0-98.0) fL MCH (27.0-33.0) pg MCHC (31.0-35.0) g/dl RDW (11.0-16.0) % Plt Count (160-400) X10*3/uL MPV (9.4-12.3) fL Immature Gran % (Auto) (0.0-0.4) % Neut % (Auto) (45-73) % Lymph % (Auto) (20-40) % Morton % (Auto) (2-11) % Eos % (Auto) (0-4) % Baso % (Auto) (0-2) % Lymph # (Auto) (1.2-4.9) X10*3/uL Morton # (Auto) (0.1-1.2) X10*3/uL Eos # (Auto) (0.0-0.4) X10*3/uL Baso # (Auto) (0.0-0.2) X10*3/uL Abs Immat Gran (auto) (0.00-0.03) X10*3/uL Absolute Neuts (auto) (2.0-8.3) x10*3/uL Absolute Nucleated RBC (0.0-0.012) X10*3/uL Nucleated RBC % (auto) (0.0-0.2) /100WBC PT (10.0-13.1) SEC INR (0.9-1.1) D-Dimer High Sensitivty NG/ML Sodium (135-145) mmol/L Potassium (3.3-5.1) mmol/L Chloride (96-108) mmol/L Carbon Dioxide (22-29) mmol/L Anion Gap (12-20) BUN (9-16) mg/dL Creatinine (0.5-1.4) mg/dL Estim Creat Clear Calc Estimated GFR Random Glucose (60-115) mg/dL Calcium (8.4-10.2) mg/dL Magnesium (1.6-2.6) mg/dL Total Bilirubin (0.0-1.0) mg/dL AST (5-31) U/L ALT (0-31) U/L Alkaline Phosphatase (39-117) U/L Troponin I High Sens < 3.5 (<3.5-17.0) ng/L Total Protein (6.5-8.0) g/dL Albumin (3.5-5.0) g/dL Influenza Type A (PCR) NEGATIVE (Negative) Influenza Type B (PCR) NEGATIVE (Negative) RSV RNA Qual (PCR) NEGATIVE (Negative) SARS-CoV-2 RNA (RT-PCR) NEGATIVE (Negative) <GIRISH Rankin - Last Filed: 05/30/22 12:46> Lab Results 05/30/22 05/30/22 05/30/22 Range/Units 14:19 14:19 14:19 WBC 7.1 (4.8-10.8) X10*3/uL RBC 4.29 (4.20-5.50) X10*6/uL Hgb 12.7 (12.0-16.0) g/dl Hct 39.0 (37.0-47.0) % MCV 90.9 (80.0-98.0) fL MCH 29.6 (27.0-33.0) pg MCHC 32.6 (31.0-35.0) g/dl RDW 13.8 (11.0-16.0) % Plt Count 211 (160-400) X10*3/uL MPV 10.6 (9.4-12.3) fL Immature Gran % (Auto) 0.3 (0.0-0.4) % Neut % (Auto) 70.9 (45-73) % Lymph % (Auto) 19.7 L (20-40) % Morton % (Auto) 7.4 (2-11) % Eos % (Auto) 1.6 (0-4) % Baso % (Auto) 0.1 (0-2) % Lymph # (Auto) 1.4 (1.2-4.9) X10*3/uL Morton # (Auto) 0.5 (0.1-1.2) X10*3/uL Eos # (Auto) 0.1 (0.0-0.4) X10*3/uL Baso # (Auto) 0.0 (0.0-0.2) X10*3/uL Abs Immat Gran (auto) 0.02 (0.00-0.03) X10*3/uL Absolute Neuts (auto) 5.0 (2.0-8.3) x10*3/uL Absolute Nucleated RBC 0.000 (0.0-0.012) X10*3/uL Nucleated RBC % (auto) 0.0 (0.0-0.2) /100WBC PT 11.8 (10.0-13.1) SEC INR 1.0 (0.9-1.1) D-Dimer High Sensitivty < 150 NG/ML Sodium 141 (135-145) mmol/L Potassium 4.5 D (3.3-5.1) mmol/L Chloride 106 (96-108) mmol/L Carbon Dioxide 27 (22-29) mmol/L Anion Gap 13 (12-20) BUN 17 H (9-16) mg/dL Creatinine 0.82 (0.5-1.4) mg/dL Estim Creat Clear Calc 72.4 Estimated GFR > 60 Random Glucose 86 (60-115) mg/dL Calcium 9.4 (8.4-10.2) mg/dL Magnesium 2.3 (1.6-2.6) mg/dL Total Bilirubin 0.4 (0.0-1.0) mg/dL AST 17 (5-31) U/L ALT 11 (0-31) U/L Alkaline Phosphatase 86 (39-117) U/L Troponin I High Sens (<3.5-17.0) ng/L Total Protein 8.0 (6.5-8.0) g/dL Albumin 4.1 (3.5-5.0) g/dL Influenza Type A (PCR) (Negative) Influenza Type B (PCR) (Negative) RSV RNA Qual (PCR) (Negative) SARS-CoV-2 RNA (RT-PCR) (Negative) 05/30/22 05/30/22 Range/Units 14:19 14:19 WBC (4.8-10.8) X10*3/uL RBC (4.20-5.50) X10*6/uL Hgb (12.0-16.0) g/dl Hct (37.0-47.0) % MCV (80.0-98.0) fL MCH (27.0-33.0) pg MCHC (31.0-35.0) g/dl RDW (11.0-16.0) % Plt Count (160-400) X10*3/uL MPV (9.4-12.3) fL Immature Gran % (Auto) (0.0-0.4) % Neut % (Auto) (45-73) % Lymph % (Auto) (20-40) % Morton % (Auto) (2-11) % Eos % (Auto) (0-4) % Baso % (Auto) (0-2) % Lymph # (Auto) (1.2-4.9) X10*3/uL Morton # (Auto) (0.1-1.2) X10*3/uL Eos # (Auto) (0.0-0.4) X10*3/uL Baso # (Auto) (0.0-0.2) X10*3/uL Abs Immat Gran (auto) (0.00-0.03) X10*3/uL Absolute Neuts (auto) (2.0-8.3) x10*3/uL Absolute Nucleated RBC (0.0-0.012) X10*3/uL Nucleated RBC % (auto) (0.0-0.2) /100WBC PT (10.0-13.1) SEC INR (0.9-1.1) D-Dimer High Sensitivty NG/ML Sodium (135-145) mmol/L Potassium (3.3-5.1) mmol/L Chloride (96-108) mmol/L Carbon Dioxide (22-29) mmol/L Anion Gap (12-20) BUN (9-16) mg/dL Creatinine (0.5-1.4) mg/dL Estim Creat Clear Calc Estimated GFR Random Glucose (60-115) mg/dL Calcium (8.4-10.2) mg/dL Magnesium (1.6-2.6) mg/dL Total Bilirubin (0.0-1.0) mg/dL AST (5-31) U/L ALT (0-31) U/L Alkaline Phosphatase (39-117) U/L Troponin I High Sens < 3.5 (<3.5-17.0) ng/L Total Protein (6.5-8.0) g/dL Albumin (3.5-5.0) g/dL Influenza Type A (PCR) NEGATIVE (Negative) Influenza Type B (PCR) NEGATIVE (Negative) RSV RNA Qual (PCR) NEGATIVE (Negative) SARS-CoV-2 RNA (RT-PCR) NEGATIVE (Negative) <Colleen Murphy NP - Last Filed: 05/30/22 17:22> Independent Interpretation I performed an independent interpretation of an: EKG, Plain X-Ray and CT Scan <Colleen Murphy NP - Last Filed: 05/30/22 17:22> Interpretation: I independently reviewed the EKG which shows normal sinus rhythm with a rate 85, normal CT, normal QRS, normal QT <Colleen Murphy NP - Last Filed: 05/30/22 17:22> Radiology Impression Discussion of test interpretation with radiology: I have reviewed the radiologist's reading. <Colleen Murphy NP - Last Filed: 05/30/22 17:22> Radiologist Impression: FINDINGS: AIRCRAFT MAINTENANCE MANAGER: Unremarkable LUNGS: There is ill-defined but stable since previous study groundglass opacity infiltrates in the left lower lobe and right lower lobe correlate clinically.? MEDIASTINUM: The mediastinum is normal.? CORONARY ARTERY CALCIFICATION: None visualized on this study. PLEURA: There is no pleural effusion. No pleural mass or thickening.? AXILLA: No lymphadenopathy.? UPPER ABDOMEN: Gallbladder is surgically absent. There is an exophytic 5.1 x 4.1 cm cyst in the upper pole of left kidney? OSSEOUS STRUCTURES: Unremarkable.? CT/CT chest wo IV con IMPRESSION: 1.? Groundglass opacity infiltrates in the left lower lobe and right lower lobe stable since previous study. 2.? Left renal cyst. ? Fleischner guidelines were followed. [address] [address] XRay Report Signed Patient: America Bower MR#: [id number] : 1960 Acct:[id number] Age/Sex: 62 / F ADM Date: 05/30/22 Loc: HO.ED Attending Dr: Ordering Physician: Karla Ardon Date of Service: 05/30/22 Procedure(s): XR chest 2V Accession Number(s): [id number] cc: Karla Ardon~ EXAMINATION: XR chest 2V CLINICAL INFORMATION: Reason for Exam cp/sob COMPARISON: Chest radiograph? 06/08/2021 TECHNIQUE: 2 views of the chest FINDINGS: Clear lungs. No pneumothorax or pleural effusion. Normal cardiomediastinal silhouette. Right upper quadrant cholecystectomy clips. XR/XR chest 2V IMPRESSION: ? *? Clear lungs. <Colleen Murphy NP - Last Filed: 05/30/22 17:22> Discharge Plan Discharge Clinical Impression: Pneumonia <GIRISH Rankin - Last Filed: 05/30/22 12:46> Patient Disposition: Home, Self-Care <GIRISH Rankin - Last Filed: 05/30/22 12:46> Instructions: Community Acquired Pneumonia (ED) <GIRISH Rankin - Last Filed: 05/30/22 12:46> Additional Instructions: Stock tomograf?a computarizada muestra neumon?a en gloria pulmones izquierdos. Euharlee gloria antibi?ticos seg?n lo prescrito. Contin?e con stock m?quina casera de albuterol y nebulizador seg?n sea necesario. Debe regresar a la montserrat de emergencias si tiene mayor dificultad para respirar o fiebre. <GIRISH Rankin - Last Filed: 05/30/22 12:46> Prescriptions: New cefpodoxime 200 mg tablet 200 mg PO BID Qty: 14 0RF Rx Instructions: must administer with a meal/food doxycycline monohydrate 100 mg capsule 100 mg PO BID Qty: 14 0RF No Action albuterol sulfate 2.5 mg /3 mL (0.083 %) Solution For Nebulization 2.5 mg INHALATION Q4-6H PRN (Reason: Shortness Of Breath) citalopram 20 mg Tablet 20 mg PO DAILY lisinopril 5 mg Tablet 5 mg PO DAILY Flovent HFA 110 mcg/actuation Hfa Aerosol Inhaler 1 puff INHALATION BID rosuvastatin [Crestor] 20 mg Tablet 20 mg PO DAILY gabapentin 300 mg Tablet 300 mg PO TID tizanidine 4 mg Capsule 4 mg PO Q8H PRN (Reason: Muscle Spasm) Genvoya [phone] mg Tablet 1 tab PO QPM ondansetron 4 mg tablet,disintegrating 4 mg PO Q6-8H PRN (Reason: nausea and vomiting) Qty: 14 0RF zolpidem 10 mg tablet 10 mg PO BEDTIME sertraline 100 mg tablet 100 mg PO DAILY Linzess 145 mcg capsule 145 mcg PO QAM Qty: 30 6RF simethicone 180 mg capsule 180 mg PO QID 30 Days Qty: 120 6RF Rx Instructions: after meals <GIRISH Rankin - Last Filed: 05/30/22 12:46> Referrals: Veronica Rebolledo MD [Primary Care Provider] - 1 week <GIRISH Rankin - Last Filed: 05/30/22 12:46> Interventions: ED Discharge Assessment Last Done: 05/30/22 17:12 <GIRISH Rankin - Last Filed: 05/30/22 12:46> Discharge Date/Time: 05/30/22 17:20 <GIRISH Rankin - Last Filed: 05/30/22 12:46> Print Language: Macanese <GIRISH Rankin - Last Filed: 05/30/22 12:46>
[2022-05-30 14:23] LABS: MANUAL DIFF FLAG NO
[2022-05-30 14:25] LABS: Basophils Percent Auto 0.1 % (0-2); Eosinophils Absolute Auto 0.1 X10*3/uL (0.0-0.4); Eosinophils Percent Auto 1.6 % (0-4); Hemoglobin 12.7 g/dl (12.0-16.0); Imm Gran Abs Auto 0.02 X10*3/uL (0.00-0.03); Imm Gran Pct Auto 0.3 % (0.0-0.4); Lymphocytes Absolute Auto 1.4 X10*3/uL (1.2-4.9); Lymphocytes Percent Auto 19.7 % (20-40); Mean Corpuscular HGB Conc 32.6 g/dl (31.0-35.0); Mean Corpuscular Hemoglobin 29.6 pg (27.0-33.0); Mean Corpuscular Volume 90.9 fL (80.0-98.0); Mean Platelet Volume 10.6 fL (9.4-12.3); Monocytes Absolute Auto 0.5 X10*3/uL (0.1-1.2); Monocytes Percent Auto 7.4 % (2-11); Neutrophils Percent Auto 70.9 % (45-73); Platelet Count 211 X10*3/uL (160-400); Red Blood Count 4.29 X10*6/uL (4.20-5.50); Red Cell Distribution Width 13.8 % (11.0-16.0); White Blood Count 7.1 X10*3/uL (4.8-10.8)
[2022-05-30 14:33] LABS: Prothrombin Time 11.8 SEC (10.0-13.1)
[2022-05-30 14:44] LABS: Alanine Aminotransferase 11 U/L (0-31); Albumin Level 4.1 g/dL (3.5-5.0); Alkaline Phosphatase 86 U/L (39-117); Anion Gap 13 (12-20); Aspartate Amino Transferase 17 U/L (5-31); Bilirubin Total 0.4 mg/dL (0.0-1.0); Blood Urea Nitrogen 17 mg/dL (9-16); Calcium 9.4 mg/dL (8.4-10.2); Carbon Dioxide 27 mmol/L (22-29); Chloride 106 mmol/L (96-108); Creatinine Clr Calc Pharmacy 72.4; Estimated Glomerular Filt Rate > 60; Glucose Random 86 mg/dL (60-115); Magnesium 2.3 mg/dL (1.6-2.6); Potassium 4.5 mmol/L (3.3-5.1); Sodium 141 mmol/L (135-145)
[2022-05-30 14:58] LABS: Troponin-I High Sensitivity < 3.5 ng/L (<3.5-17.0)
[2022-05-30 15:03] LABS: Influenza A PCR NEGATIVE (Negative); Influenza B PCR NEGATIVE (Negative); Resp Syncy Virus RNA Qual PCR NEGATIVE (Negative); SARS COV2 PCR INHOUSE NEGATIVE (Negative)
[2022-05-30 15:50] VITALS: RESP 18; O2SAT 97
[2022-05-30] MEDS: Albuterol/Iprat 2.5/0.5MG 3 ML AMPUL.NEB INHALE (15:50)
[2022-05-30 16:03] LABS: D Dimer High Sensitivity < 150 NG/ML
== END 2022-05-30 17:20 | disposition home or self-care (01) ==
PROVIDERS: Nurse Practitioner Family; Physician Assistant Medical; Emergency Provider Student in an Organized Health Care Education/Training Program; PCP Internal Medicine
DX: J18.9 Pneumonia, unspecified organism (principal); Z20.822 Contact with and (suspected) exposure to COVID-19; Z20.828 Contact with and (suspected) exposure to other viral communicable diseases; I10 Essential (primary) hypertension; B20 Human immunodeficiency virus [HIV] disease; K75.9 Inflammatory liver disease, unspecified; E78.00 Pure hypercholesterolemia, unspecified; Z79.899 Other long term (current) drug therapy; Z79.02 Long term (current) use of antithrombotics/antiplatelets
CPT/HCPCS: 0241U; 36415; 71046; 71250; 80053; 83735; 84484; 85025; 85379; 85610; 93005; 94640; 99284

== ENCOUNTER 2022-07-16 07:50 | Outpatient (REF) | payer MEDICAID, SELFPAY ==
[2022-07-21 04:08] LABS: HPV mRNA E6/E7 rflx Not Detected (Not Detected)
== END 2022-07-16 07:51 | disposition home or self-care (01) ==
LOC: HO.LNP 07:50
PROVIDERS: PCP Internal Medicine; Visit Provider Advanced Practice Midwife
DX: Z01.419 Encounter for gynecological examination (general) (routine) without abnormal findings (principal); Z11.51 Encounter for screening for human papillomavirus (HPV); R10.2 Pelvic and perineal pain; Z20.2 Contact with and (suspected) exposure to infections with a predominantly sexual mode of transmission; R39.11 Hesitancy of micturition
CPT/HCPCS: 0353U; 81003; 87086; 87088; 87186; 87480; 87510; 87624; 87660; 88142

== ENCOUNTER 2022-07-16 08:31 | Outpatient (REF) | payer MEDICAID, SELFPAY ==
[2022-07-17 11:39] LABS: CT PCR NOT DETECTED (Not Detect.); NG PCR NOT DETECTED (Not Detect.)
[2022-07-17 12:32] LABS: BV Int Neg Control Negative (Negative); BV Int Pos Control Positive (Positive)
== END 2022-07-16 08:32 | disposition home or self-care (01) ==
LOC: HO.LAB 08:31
PROVIDERS: Visit Provider Advanced Practice Midwife
DX: R10.2 Pelvic and perineal pain (principal); R39.11 Hesitancy of micturition; Z20.2 Contact with and (suspected) exposure to infections with a predominantly sexual mode of transmission; Z87.448 Personal history of other diseases of urinary system
CPT/HCPCS: 0353U; 87086; 87088; 87186; 87480; 87510; 87660

== ENCOUNTER 2022-07-29 12:00 | Outpatient (REF) | payer MEDICAID, SELFPAY ==
--- NOTE | ~2022-07-29 | US_ITS ---
EXAMINATION: US PELVIS CLINICAL INFORMATION: Pelvic and perineal pain. COMPARISON: Previous pelvic ultrasound August [address] of the abdomen and pelvis September 2021. TECHNIQUE: Ultrasound of the pelvis is performed using both transabdominal and transvaginal transducers along with Doppler. Transvaginal imaging is performed due to inadequate visualization transabdominally. FINDINGS: The uterus is anteverted and measures 7.6 x 4.1 x 5.7 cm in dimension. Uterine echotexture is heterogeneous. There is question of a 2 cm anterior uterine body intramural fibroid. There is a 1.3 x 0.8 x 1.1 cm calcification suggestive of a calcified fibroid. Endometrial thickness measures 0.7 cm. There are nabothian cysts in the cervix. The right ovary is normal and measures 1.6 x 1 x 1.2 cm. The left ovary is not seen. There is no fluid in the pelvis. US/US pelvic and transvaginal IMPRESSION: Heterogeneous uterus. Small calcified uterine fibroid. Upper normal thickness endometrium for a postmenopausal patient. Normal right ovary. Left ovary not seen.
== END 2022-07-29 12:01 | disposition home or self-care (01) ==
LOC: HO.US 12:00
PROVIDERS: PCP Internal Medicine; Visit Provider Advanced Practice Midwife
DX: R10.2 Pelvic and perineal pain (principal)
CPT/HCPCS: 76830; 76856

== ENCOUNTER 2022-08-24 09:41 | Outpatient (REF) | payer MEDICAID, SELFPAY ==
--- NOTE | ~2022-08-24 | XR_ITS ---
EXAMINATION: XR KNEE, LEFT CLINICAL INFORMATION: OA left knee pain. COMPARISON: None available. TECHNIQUE: Four views of the left knee. FINDINGS: There is loss of patellofemoral compartment joint space. The medial and lateral compartment joint space is maintained. No visible acute fracture, loose bodies of bony erosive changes. There is no joint effusion seen. There is a moderate-sized anterior superior patellar enthesophyte. XR/XR knee LT 4V IMPRESSION: Moderate size anterior superior patellar enthesophyte. No visible acute fracture or dislocation seen.
[2022-08-24 11:08] LABS: Alanine Aminotransferase 11 U/L (0-31); Albumin Level 3.9 g/dL (3.5-5.0); Alkaline Phosphatase 74 U/L (39-117); Anion Gap 9 (12-20); Aspartate Amino Transferase 17 U/L (5-31); Bilirubin Total 0.7 mg/dL (0.0-1.0); Blood Urea Nitrogen 15 mg/dL (9-16); Calcium 9.4 mg/dL (8.4-10.2); Carbon Dioxide 32 mmol/L (22-29); Chloride 104 mmol/L (96-108); Estimated Glomerular Filt Rate > 60; Glucose Random 91 mg/dL (60-115); Potassium 3.7 mmol/L (3.3-5.1); Sodium 141 mmol/L (135-145); Total Protein 7.7 g/dL (6.5-8.0)
== END 2022-08-24 09:42 | disposition home or self-care (01) ==
LOC: HO.LAB 09:41
PROVIDERS: PCP Internal Medicine; Visit Provider Internal Medicine
DX: Z00.00 Encounter for general adult medical examination without abnormal findings (principal); M17.12 Unilateral primary osteoarthritis, left knee; I10 Essential (primary) hypertension; R31.29 Other microscopic hematuria; F32.5 Major depressive disorder, single episode, in full remission
CPT/HCPCS: 36415; 73564; 80053

== ENCOUNTER 2022-08-31 | Outpatient (REF) | payer MEDICAID, SELFPAY | END 2022-08-31 00:01 | LOC: CF | PROVIDERS: PCP Internal Medicine; Visit Provider Advanced Practice Midwife | DX: R31.9 Hematuria, unspecified (principal); Z71.2 Person consulting for explanation of examination or test findings | CPT/HCPCS: 81003; 99212 ==

== ENCOUNTER 2022-08-31 11:02 | Outpatient (REF) | payer MEDICAID, SELFPAY | END 2022-08-31 11:03 | disposition home or self-care (01) | LOC: HO.LAB 11:02 | PROVIDERS: Visit Provider Advanced Practice Midwife | DX: R10.2 Pelvic and perineal pain (principal); R31.9 Hematuria, unspecified | CPT/HCPCS: 87086; 87088; 87186 ==

== ENCOUNTER → 2022-09-09 14:21 | Outpatient (BNVA) | payer MEDICAID, SELFPAY | PROVIDERS: PCP Internal Medicine; Visit Provider Nurse Practitioner | DX: K59.04 Chronic idiopathic constipation (principal); R14.0 Abdominal distension (gaseous); D12.6 Benign neoplasm of colon, unspecified | CPT/HCPCS: 99212 ==

== ENCOUNTER 2022-09-18 10:10 | Emergency (ER) | payer MEDICAID, SELFPAY ==
--- NOTE | ~2022-09-18 | CT_ITS ---
EXAMINATION: CT ABDOMEN AND PELVIS WITHOUT CONTRAST CLINICAL INFORMATION: Lower abdominal pain COMPARISON: October 01, 2021 TECHNIQUE: Multidetector volumetric imaging was performed from the superior aspect of the liver through the pubic symphysis. Sagittal and coronal reformatted images were obtained on the technologist's workstation. This CT examination was performed using dose optimization techniques as appropriate, variously including the following: *Automated exposure control *Adjustment of mA and/or kV according to patient size (this includes techniques or standardized protocols for targeted exams where dose is matched to indication/reason for exam; i.e. extremities or head) *Use of iterative reconstruction technique DLP: 594 mGy-cm FINDINGS: LUNG BASES: Since previous study patient has developed bibasilar airspace disease bronchial wall thickening being present as well as a few broncholiths within the solid appearing portion of the left lower lobe density. Solid component of left lower lobe lesion measures 3.3 x 2.6 cm in size. No pleural or pericardial effusion identified. LIVER, GALLBLADDER, AND BILIARY TREE: The liver is normal in size, shape, and attenuation. No focal hepatic lesion or biliary ductal dilatation is present. Patient is status post cholecystectomy. PANCREAS: Unremarkable. No abnormal mass or peripancreatic inflammatory change. SPLEEN: Unremarkable. ADRENAL GLANDS: Unremarkable. KIDNEYS AND URETERS: Right kidney: There is a 1 cm cyst seen within the interpolar region. There are multiple 1 mm or smaller calculi present without hydronephrosis. No suspicious solid mass identified. Visualized portions of the right ureter unremarkable. Left kidney: Within the upper pole there is a 4.8 x 4.3 cm cyst. There is a 5 mm nonobstructing interpolar calculus present. There are 4 nonobstructing lower pole calculi present the largest measuring 6 mm in diameter and with Hounsfield unit measurements of approximately 500. This lies approximately 10 cm from the posterior axillary line. No hydronephrosis noted. No suspicious solid mass identified. The renal cysts appear benign and do not require follow-up. BLADDER: Decompressed. Bladder wall is not adequately evaluated without distention. GASTROINTESTINAL TRACT: No dilated loops of large or small bowel are evident. No free air or free fluid is noted. There is a large stool burden present. No pericolonic inflammatory change. The appendix is visualized and appears unremarkable. The appendix contains a 3 mm appendicolith. ABDOMINAL WALL: No significant hernia is appreciated. LYMPH NODES: No lymphadenopathy appreciated. VASCULAR: Unremarkable. PELVIC VISCERA: Fibroid uterus present. OSSEOUS STRUCTURES: No suspicious destructive bony lesion identified. Degenerative disc disease L5-S1 level. CT/CT abdomen pelvis wo IV con IMPRESSION: Bibasilar interstitial and airspace disease with bronchial thickening suspicious for possible pneumonia. Large stool burden. Bilateral nephrolithiasis without evidence of obstructive uropathy. Fleischner guidelines were followed.
--- NOTE | ~2022-09-18 | XR_ITS ---
EXAMINATION: XR CHEST CLINICAL INFORMATION: Cough COMPARISON: May 30, 2022 and studies dating back to February 04, 2019 TECHNIQUE: AP portable view of the chest was obtained. FINDINGS: There is a focal density seen about the left lower lung consistent with atelectasis or pneumonitis. No pneumothorax or pleural effusion. Heart normal size. No evidence of pulmonary edema. XR/XR chest 1V IMPRESSION: Left base density which could be related to atelectasis or pneumonitis.
[2022-09-18 10:12] VITALS: BP 112/52; PULSE 76; RESP 14; TEMP 36.7; O2SAT 96; BMI 28.3
--- NOTE | 2022-09-18 10:21 | ED_ITS ---
HPI - General Adult General Chief complaint: General Medical Stated complaint: multiple symptoms Time Seen by Provider: 09/18/22 10:20 Source: patient Mode of arrival: ambulatory Limitations: no limitations History of Present Illness HPI narrative: 62-year-old [place]ian-speaking female with past medical history of kidney stones, HIV, hypertension, anemia, osteoarthritis, fibromyalgia, GERD, varicose veins, hyperlipidemia, depression, hepatitis, asthma, obstructive sleep apnea presents with 5 days of productive cough, shortness of breath, chest pain, back pain, lower abdominal pain, and dizziness. She reports intermittent chest pain, worse with breathing and palpation of chest. Reports nausea without vomiting. Additionally she reports having an undocumented fever yesterday with chills. No diarrhea, constipation, vomiting, hematochezia. Patient was seen in our ED 4 months ago for left lower lobe PNA and treated outpatient with PO abx. She reports hematuria and urinating small amounts and is currently following with a urologist. Onset (ago): day(s) (5) Location: chest, back, abdomen and pelvis Radiation: non-radiation Severity: mild Pain Consistency: constant Relieving factors: none Associated symptoms: chest pain, cough and shortness of breath Treatments prior to arrival: none Related Data Home Medications Medication Instructions Recorded Confirmed albuterol sulfate 2.5 mg/3 mL 2.5 mg inhalation Q4-6H PRN 01/24/20 01/24/20 (0.083 %) solution for nebulization Shortness Of Breath citalopram 20 mg tablet 20 mg PO DAILY 01/24/20 01/24/20 elviteg 150 mg-cob 150 mg-emtricit 1 tab PO QPM 01/24/20 01/24/20 200 mg-tenofo alafenam 10 mg tablet (Genvoya) gabapentin 300 mg tablet 300 mg PO TID 01/24/20 01/24/20 lisinopril 5 mg tablet 5 mg PO DAILY 01/24/20 01/24/20 rosuvastatin 20 mg tablet (Crestor) 20 mg PO DAILY 01/24/20 01/24/20 tizanidine 4 mg capsule 4 mg PO Q8H PRN Muscle Spasm 01/24/20 01/24/20 sertraline 100 mg tablet 100 mg PO DAILY 09/23/21 zolpidem 10 mg tablet 10 mg PO BEDTIME 09/23/21 diclofenac sodium 75 mg 75 mg PO BID 09/09/22 tablet,delayed release fluticasone 250 mcg-salmeterol 50 2 ea inhalation BID 09/09/22 mcg/dose blistr powdr for inhalation (Advair Diskus) meclizine 12.5 mg tablet 12.5 mg PO QID PRN 09/09/22 Previous Rx's Medication Instructions Recorded ondansetron 4 mg disintegrating 4 mg PO Q6-8H PRN nausea and 10/01/21 tablet vomiting #14 tabs simethicone 180 mg capsule 180 mg PO QID 30 days #120 caps 05/21/22 hydrocortisone 2.5 % topical cream 1 appl NM BID hemorrhoids #30 grams 08/17/22 with perineal applicator (Proctosol HC) linaclotide 145 mcg capsule 145 mcg PO QAM #30 caps 08/17/22 (Linzess) amoxicillin 875 mg-potassium 1 tab PO BID Pneumonia #14 tabs 09/18/22 clavulanate 125 mg tablet nitrofurantoin 100 mg PO Q12H 7 days #14 caps 09/18/22 monohydrate/macrocrystals 100 mg capsule (Macrobid) prednisone 20 mg tablet 40 mg PO DAILY #10 tabs 09/18/22 Allergies Allergy/AdvReac Type Severity Reaction Status Date / Time shellfish derived Allergy Intermediate HIVES, N/V Verified 09/09/22 14:38 No Known Drug Allergies Allergy Unknown none Verified 09/09/22 14:38 Review of Systems Review of Systems: Yes all other systems are reviewed and are negative PMFSH Past Medical History Medical History Anemia Arthritis Asthma Depression Difficulty swallowing Elevated cholesterol 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 Fibromyalgia GERD (gastroesophageal reflux disease) Hematuria Hepatitis History of blood transfusion HIV (human immunodeficiency virus infection) HTN (hypertension) Hx of renal calculi Sleep apnea Surgical History Hx of section Hx of cholecystectomy Hx of colonoscopy Hx of dilation and curettage Hx of reduction mammoplasty Hx of tubal ligation Family History Family History Mother Breast cancer Father Heart problem Sister Bone cancer Family/Other Diabetes Social History Social History Alcohol intake: current Alcohol intake frequency: does not drink Alcohol type: wine Patient Tobacco Use Status: Never used Tobacco Smoked in Last 30 Days: No Second Hand Smoke Exposure: No Use of substances other than those prescribed or required for medical reasons: No Advance Directives: No Advance Directives Information Provided: Yes Sexual orientation: Straight/Heterosexual Gender identity: Female Physical Exam ED Vital Signs: Vital Signs - 24 hr 09/18/22 10:12 09/18/22 11:04 09/18/22 11:05 Temperature 98.0 F Pulse Rate 76 61 66 Respiratory Rate 14 Blood Pressure 112/52 L 98/61 116/62 Pulse Oximetry 96 Oxygen Delivery Method Room Air 09/18/22 11:06 Temperature Pulse Rate 64 Respiratory Rate Blood Pressure 130/71 Pulse Oximetry Oxygen Delivery Method BMI result Body Mass Index 28.3 Vital signs stable Appearance: Alert. Oriented X3. No acute distress. Head: normocephalic, atraumatic. Eyes: Pupils equal, round and reactive to light. ENT: Pharynx normal. No tonsillar swelling or exudate. Neck: Normal inspection. Neck supple. CVS: Normal heart rate and rhythm. Pulses normal. Respiratory: No respiratory distress. Crackles to left lung base. Abdomen: Soft, tender to LLQ, no rebound or guarding. +BS x4 Skin: Skin warm and dry. Normal skin color. Normal skin turgor. No rashes. Extremities: No lower extremity edema. No joint swelling. Neuro/psych: Oriented X 3. No motor deficit. No sensory deficit. CN II-XII intact. Normal speech and cognition. Medical Decision Making Medical Decision Making MDM Narrative: 62-year-old [place]ian-speaking female with past medical history of kidney stones, HIV, hypertension, anemia, osteoarthritis, fibromyalgia, GERD, varicose veins, hyperlipidemia, depression, hepatitis, asthma, obstructive sleep apnea presents with 5 days of productive cough, shortness of breath, chest pain, back pain, lower abdominal pain, and dizziness. Seen in ED 4 mo ago for left lower lobe PNA treated w/ abx. Vital signs reviewed and stable. Physical exam remarkable for LLQ TTP and crackles to left lower lung lobe. Labs unremarkable. UA significant for moderate blood and leukocyte esterase indicative of infection. Patient's clinical presentation is consistent with urinary tract infection and left lower lobe PNA. With her history of ESBL she can only receive macrobid or bactrim for the UTI. Script for macrobid x1 wk for UTI and augmentin x1 wk for PNA sent to pharmacy and patient will be discharged home for out patient treatment. Patient expressed understanding and is in agreement with plan. Differential Diagnosis Differential Diagnoses: The differential diagnosis associated with the presentation includes PNA, UTI, nephrolithiasis, CHF Lab Data MDM Lab Attestation statement: I reviewed the patient's lab results. no leukocytosis, normal CMP 09/18/22 11:17 09/18/22 11:17 Labs: Lab Results 09/18/22 09/18/22 09/18/22 Range/Units 11:17 11:17 11:17 WBC 9.9 (4.8-10.8) X10*3/uL RBC 4.24 (4.20-5.50) X10*6/uL Hgb 12.3 (12.0-16.0) g/dl Hct 38.6 (37.0-47.0) % MCV 91.0 (80.0-98.0) fL MCH 29.0 (27.0-33.0) pg MCHC 31.9 (31.0-35.0) g/dl RDW 13.2 (11.0-16.0) % Plt Count 193 (160-400) X10*3/uL MPV 11.0 (9.4-12.3) fL Immature Gran % (Auto) 0.5 H (0.0-0.4) % Neut % (Auto) 82.4 H (45-73) % Lymph % (Auto) 10.9 L (20-40) % [place] % (Auto) 5.1 (2-11) % Eos % (Auto) 0.9 (0-4) % Baso % (Auto) 0.2 (0-2) % Lymph # (Auto) 1.1 L (1.2-4.9) X10*3/uL [place] # (Auto) 0.5 (0.1-1.2) X10*3/uL Eos # (Auto) 0.1 (0.0-0.4) X10*3/uL Baso # (Auto) 0.0 (0.0-0.2) X10*3/uL Abs Immat Gran (auto) 0.05 H (0.00-0.03) X10*3/uL Absolute Neuts (auto) 8.1 (2.0-8.3) x10*3/uL Absolute Nucleated RBC 0.000 (0.0-0.012) X10*3/uL Nucleated RBC % (auto) 0.0 (0.0-0.2) /100WBC Sodium 140 (135-145) mmol/L Potassium 3.7 (3.3-5.1) mmol/L Chloride 105 (96-108) mmol/L Carbon Dioxide 27 (22-29) mmol/L Anion Gap 12 (12-20) BUN 13 (9-16) mg/dL Creatinine 0.93 (0.5-1.4) mg/dL Estim Creat Clear Calc 60.6 Estimated GFR > 60 Random Glucose 95 (60-115) mg/dL Calcium 8.9 (8.4-10.2) mg/dL Magnesium 2.2 (1.6-2.6) mg/dL Total Bilirubin 0.9 (0.0-1.0) mg/dL Direct Bilirubin 0.2 (0.0-0.5) mg/dL AST 17 (5-31) U/L ALT 12 (0-31) U/L Alkaline Phosphatase 90 (39-117) U/L Troponin I High Sens < 2.7 (<3.5-17.0) ng/L B-Natriuretic Peptide (<100) pg/mL Total Protein 8.1 H (6.5-8.0) g/dL Albumin 3.8 (3.5-5.0) g/dL Urine Color Urine Appearance Urine pH (5.0-9.0) Ur Specific [place] (1.005-1.025) Urine Protein (Neg-Trace) mg/dL Urine Glucose (UA) (Negative) mg/dL Urine Ketones (Negative) mg/dL Urine Blood (Negative) Urine Nitrite (Negative) Ur Leukocyte Esterase (Negative) Urine RBC (0-2) /HPF Urine WBC (0-5) /HPF Ur Squamous Epith Cells (0-2) /HPF Urine Bacteria (None Seen) Hyaline Casts (0-2) /LPF COVID-19 (JONH) (Negative) COVID-19 Clin Com 09/18/22 09/18/22 09/18/22 Range/Units 11:17 11:17 11:17 WBC (4.8-10.8) X10*3/uL RBC (4.20-5.50) X10*6/uL Hgb (12.0-16.0) g/dl Hct (37.0-47.0) % MCV (80.0-98.0) fL MCH (27.0-33.0) pg MCHC (31.0-35.0) g/dl RDW (11.0-16.0) % Plt Count (160-400) X10*3/uL MPV (9.4-12.3) fL Immature Gran % (Auto) (0.0-0.4) % Neut % (Auto) (45-73) % Lymph % (Auto) (20-40) % Conway % (Auto) (2-11) % Eos % (Auto) (0-4) % Baso % (Auto) (0-2) % Lymph # (Auto) (1.2-4.9) X10*3/uL [place] # (Auto) (0.1-1.2) X10*3/uL Eos # (Auto) (0.0-0.4) X10*3/uL Baso # (Auto) (0.0-0.2) X10*3/uL Abs Immat Gran (auto) (0.00-0.03) X10*3/uL Absolute Neuts (auto) (2.0-8.3) x10*3/uL Absolute Nucleated RBC (0.0-0.012) X10*3/uL Nucleated RBC % (auto) (0.0-0.2) /100WBC Sodium (135-145) mmol/L Potassium (3.3-5.1) mmol/L Chloride (96-108) mmol/L Carbon Dioxide (22-29) mmol/L Anion Gap (12-20) BUN (9-16) mg/dL Creatinine (0.5-1.4) mg/dL Estim Creat Clear Calc Estimated GFR Random Glucose (60-115) mg/dL Calcium (8.4-10.2) mg/dL Magnesium (1.6-2.6) mg/dL Total Bilirubin (0.0-1.0) mg/dL Direct Bilirubin (0.0-0.5) mg/dL AST (5-31) U/L ALT (0-31) U/L Alkaline Phosphatase (39-117) U/L Troponin I High Sens (<3.5-17.0) ng/L B-Natriuretic Peptide 49 (<100) pg/mL Total Protein (6.5-8.0) g/dL Albumin (3.5-5.0) g/dL Urine Color Dark Yellow Urine Appearance Turbid Urine pH 6.0 (5.0-9.0) Ur Specific [place] 1.015 (1.005-1.025) Urine Protein 100 (2+) H (Neg-Trace) mg/dL Urine Glucose (UA) Negative (Negative) mg/dL Urine Ketones Trace (Negative) mg/dL Urine Blood Moderate (2+) H (Negative) Urine Nitrite Negative (Negative) Ur Leukocyte Esterase Large (3+) H (Negative) Urine RBC 11-20 H (0-2) /HPF Urine WBC >50 H (0-5) /HPF Ur Squamous Epith Cells 0-2 (0-2) /HPF Urine Bacteria Trace (None Seen) Hyaline Casts 0-2 (0-2) /LPF COVID-19 (JONH) Negative (Negative) COVID-19 Clin Com See Note Independent Interpretation I performed an independent interpretation of an: EKG, Plain X-Ray and CT Scan Interpretation: EKG with rate of 65 bpm, NSR, left axis deviation. Chest xray w/ infiltrates to left lower lobe. Agree with radiologist read. CT abd/ pelvis w/ bronchial thickening. Agree with radiologist read. Radiology Impression Discussion of test interpretation with radiology: I have reviewed the radiologist's reading. Radiologist Impression: XR/XR chest 1V IMPRESSION: Left base density which could be related to atelectasis or pneumonitis CT/CT abdomen pelvis wo IV con IMPRESSION: Bibasilar interstitial and airspace disease with bronchial thickening suspicious for possible pneumonia. ? Large stool burden. ? Bilateral nephrolithiasis without evidence of obstructive uropathy.? ? Fleischner guidelines were followed. External Record Review External record reviewed: Office record, Outpatient record, Prior outpatient labs and Prior outpatient radiology Prescription Management I considered prescription management with: Antibiotic Chronic Conditions Patient?s care impacted by: Hypertension and Other (asthma) Critical Care Time Critical Care Time Critical Care Time: No Discharge Plan Discharge Clinical Impression: UTI (urinary tract infection), Pneumonia Patient Disposition: Home, Self-Care Instructions: Urinary Tract Infection in Women (DC), Community Acquired Pneumonia (DC) Additional Instructions: Your labs were unremarkable. Your urine showed an acute infection. Your chest xray and chest CT scan showed left lower lobe pneumonia. Antibiotics, including macrobid and augmentin were sent to your pharmacy. Take each of these medications for 7 days to treat both your urinary and lung infections. Take the entire dose as prescribed. Return to the ED if your symptoms worsen, you become confused, spike a high fever, or become short of breath. Tus laboratorios no ten?an nada especial. Jaeger orina mostr? infecci?n. Jaeger radiograf?a de t?rax y la tomograf?a computarizada de t?rax mostraron PNA en el l?bulo inferior eileen. Se enviaron a jaeger farmacia antibi?ticos, incluidos Macrobid y Augmentin. Bentley cada omari de estos medicamentos loida 7 d?as para tratar gloria infecciones urinarias y pulmonares. Bentley la dosis completa seg?n lo prescrito. Regrese al servicio de urgencias si gloria s?ntomas empeoran, se confunde, tiene fiebre jeff o le falta el aire. Prescriptions: New nitrofurantoin monohyd/m-cryst [Macrobid] 100 mg capsule 100 mg PO Q12H 7 Days Qty: 14 0RF Rx Instructions: must administer with a meal/food amoxicillin-pot clavulanate 875-125 mg tablet 1 tab PO BID Qty: 14 0RF Rx Instructions: Take one tablet twice daily for 7 days prednisone 20 mg tablet 40 mg PO DAILY Qty: 10 0RF No Action hydrocortisone [Proctosol HC] 2.5 % cream with perineal applicator 1 appl NM BID Qty: 30 6RF Rx Instructions: BE SURE TO INCLUDE RECTAL APPICATOR!! Linzess 145 mcg capsule 145 mcg PO QAM Qty: 30 1RF albuterol sulfate 2.5 mg /3 mL (0.083 %) Solution For Nebulization 2.5 mg INHALATION Q4-6H PRN (Reason: Shortness Of Breath) citalopram 20 mg Tablet 20 mg PO DAILY lisinopril 5 mg Tablet 5 mg PO DAILY rosuvastatin [Crestor] 20 mg Tablet 20 mg PO DAILY gabapentin 300 mg Tablet 300 mg PO TID tizanidine 4 mg Capsule 4 mg PO Q8H PRN (Reason: Muscle Spasm) Genvoya [phone] mg Tablet 1 tab PO QPM ondansetron 4 mg tablet,disintegrating 4 mg PO Q6-8H PRN (Reason: nausea and vomiting) Qty: 14 0RF zolpidem 10 mg tablet 10 mg PO BEDTIME sertraline 100 mg tablet 100 mg PO DAILY simethicone 180 mg capsule 180 mg PO QID 30 Days Qty: 120 6RF Rx Instructions: after meals diclofenac sodium 75 mg tablet,delayed release (DR/EC) 75 mg PO BID meclizine 12.5 mg tablet 12.5 mg PO QID PRN fluticasone propion-salmeterol [Advair Diskus] 250-50 mcg/dose blister with device 2 ea inhalation BID Referrals: Veronica Rebolledo MD [Primary Care Provider] - Print Language: Namibian
--- NOTE | 2022-09-18 10:40 | ECG_ITS ---
Test Reason : CHEST PAIN Blood Pressure : / mmHG Vent. Rate : 065 BPM Atrial Rate : 065 BPM P-R Int : 158 ms QRS Dur : 090 ms QT Int : 420 ms P-R-T Axes : 065 -36 045 degrees QTc Int : 436 ms Normal sinus rhythm Left axis deviation Abnormal ECG When compared with ECG of 30-MAY-2022 12:07, No significant change was found Referred By: Rhiannon Pedraza Electronically Signed By:AZEEM FLANAGAN MD
[2022-09-18 11:04] VITALS: BP 98/61; PULSE 61
[2022-09-18 11:05] VITALS: BP 116/62; PULSE 66
[2022-09-18 11:06] VITALS: BP 130/71; PULSE 64
[2022-09-18 11:24] LABS: MANUAL DIFF FLAG NO
[2022-09-18 11:27] LABS: Appearance Urine Turbid; Color Urine Dark Yellow; Glucose Urine UA Negative (Negative); Leukocyte Esterase Urine Large (3+) (Negative); Nitrite Urine Negative (Negative); Specific Gravity - Urine 1.015 (1.005-1.025); UMIC TRIGGER UACC YES; Urine Blood Moderate (2+) (Negative); Urine Ketones Trace mg/dL (Negative); Urine Protein 100 (2+) mg/dL (Neg-Trace)
[2022-09-18 11:30] LABS: Bacteria Urine Trace (None Seen); Hyaline Casts Urine 0-2 /LPF (0-2); Squamous Epithelial Cell Urine 0-2 /HPF (0-2); UACC Culture Trigger YES; WBC Urine >50 /HPF (0-5)
[2022-09-18 11:33] LABS: Basophils Percent Auto 0.2 % (0-2); Eosinophils Absolute Auto 0.1 X10*3/uL (0.0-0.4); Eosinophils Percent Auto 0.9 % (0-4); Hematocrit 38.6 % (37.0-47.0); Hemoglobin 12.3 g/dl (12.0-16.0); Imm Gran Abs Auto 0.05 X10*3/uL (0.00-0.03); Imm Gran Pct Auto 0.5 % (0.0-0.4); Lymphocytes Absolute Auto 1.1 X10*3/uL (1.2-4.9); Lymphocytes Percent Auto 10.9 % (20-40); Mean Corpuscular HGB Conc 31.9 g/dl (31.0-35.0); Monocytes Absolute Auto 0.5 X10*3/uL (0.1-1.2); Monocytes Percent Auto 5.1 % (2-11); Neutrophils Absolute Auto 8.1 x10*3/uL (2.0-8.3); Neutrophils Percent Auto 82.4 % (45-73); Platelet Count 193 X10*3/uL (160-400); Red Blood Count 4.24 X10*6/uL (4.20-5.50); Red Cell Distribution Width 13.2 % (11.0-16.0); White Blood Count 9.9 X10*3/uL (4.8-10.8)
[2022-09-18 11:50] LABS: B Type Natriuretic Peptide 49 pg/mL (<100)
[2022-09-18 12:02] LABS: COVID-19 Test Negative (Negative); IDNOW Serial# BCCEAD1C; Troponin-I High Sensitivity < 2.7 ng/L (<3.5-17.0)
[2022-09-18 12:11] LABS: Alanine Aminotransferase 12 U/L (0-31); Albumin Level 3.8 g/dL (3.5-5.0); Alkaline Phosphatase 90 U/L (39-117); Anion Gap 12 (12-20); Aspartate Amino Transferase 17 U/L (5-31); Bilirubin Direct 0.2 mg/dL (0.0-0.5); Bilirubin Total 0.9 mg/dL (0.0-1.0); Blood Urea Nitrogen 13 mg/dL (9-16); Calcium 8.9 mg/dL (8.4-10.2); Carbon Dioxide 27 mmol/L (22-29); Chloride 105 mmol/L (96-108); Creatinine Clr Calc Pharmacy 60.6; Estimated Glomerular Filt Rate > 60; Glucose Random 95 mg/dL (60-115); Magnesium 2.2 mg/dL (1.6-2.6); Potassium 3.7 mmol/L (3.3-5.1); Sodium 140 mmol/L (135-145); Total Protein 8.1 g/dL (6.5-8.0)
== END 2022-09-18 14:15 | disposition home or self-care (01) ==
PROVIDERS: Physician Assistant; Emergency Provider Emergency Medicine; PCP Internal Medicine
DX: N39.0 Urinary tract infection, site not specified (principal); B96.20 Unspecified Escherichia coli [E. coli] as the cause of diseases classified elsewhere; J18.9 Pneumonia, unspecified organism; R06.02 Shortness of breath; Z20.822 Contact with and (suspected) exposure to COVID-19; B20 Human immunodeficiency virus [HIV] disease; I10 Essential (primary) hypertension; E78.5 Hyperlipidemia, unspecified; Z79.02 Long term (current) use of antithrombotics/antiplatelets; Z79.899 Other long term (current) drug therapy
CPT/HCPCS: 36415; 71045; 74176; 80048; 80076; 81001; 83735; 83880; 84484; 85025; 87086; 87088; 87186; 87635; 93005; 99284

== ENCOUNTER → 2022-10-07 12:31 | Outpatient (BNVA) | payer MEDICAID, SELFPAY | PROVIDERS: PCP Internal Medicine; Visit Provider Nurse Practitioner Family | DX: J84.9 Interstitial pulmonary disease, unspecified (principal); B20 Human immunodeficiency virus [HIV] disease; Z85.3 Personal history of malignant neoplasm of breast; Z80.3 Family history of malignant neoplasm of breast; Z87.891 Personal history of nicotine dependence; Z79.899 Other long term (current) drug therapy | CPT/HCPCS: 99202 ==

== ENCOUNTER 2022-10-28 10:24 | Outpatient (REF) | payer MEDICAID, SELFPAY ==
--- NOTE | ~2022-10-28 | US_ITS ---
EXAMINATION: US PELVIS COMPLETE CLINICAL INFORMATION: Benign neoplasm COMPARISON: Pelvic ultrasound 07/29/2022 TECHNIQUE: Transabdominal and transvaginal imaging was performed. FINDINGS: The uterus is of normal size and echogenicity measuring 7.4 x 4.1 x 5.7 cm. The endometrium is thickened and heterogeneous measuring 1.0 cm. Trace fluid in the endometrial canal. Nabothian cysts in the cervix. A 1.4 similar calcified uterine myoma previously measured 1.3 cm not significantly changed. Right ovary is of normal size and echogenicity. The right measures 1.7 x 0.7 x 1.1 cm for a volume of 0.7 mL. The left ovary was not identified sonographically. No adnexal mass. There is no pelvic free fluid. US/US pelvic and transvaginal IMPRESSION: 1. The endometrium is thickened and heterogeneous measuring 1.0 cm with trace fluid in the endometrial canal. Recommend correlation with any history of postmenopausal bleeding and gynecologic evaluation and management. 2. A 1.4 cm calcified uterine myoma not significantly changed. 3. Unremarkable sonographic appearance of the right ovary. The left ovary was not identified sonographically. No adnexal mass. The report will be called to the ordering clinician by a [place] Radiology Physician Russian Language Instructor.
== END 2022-10-28 10:25 | disposition home or self-care (01) ==
LOC: HO.US 10:24
PROVIDERS: PCP Internal Medicine; Visit Provider Advanced Practice Midwife
DX: D21.9 Benign neoplasm of connective and other soft tissue, unspecified (principal)
CPT/HCPCS: 76830; 76856

== ENCOUNTER 2022-11-04 08:23 | Outpatient (AMB) | payer MEDICAID, SELFPAY ==
--- NOTE | 2022-11-04 08:55 | MHC.OFFVIS ---
Intake Vital Signs 11/04/22 08:56 Height 5 ft 3 in Weight 179 lb BMI 31.7 BP 120/66 Intake Visit Reasons: Ultrasound follow up/30 min Moldovan Intake Note: The patient agreed to use of a medical representative during this encounter. Scribed for JT Stephen by Claudia Lugo medical representative, on 11/04/2022 at 9:28 am EST. Teletypesetter Operator Required: Yes Teletypesetter Operator Language: Excel Developer Name: Leigh DIAZ Allergies shellfish derived Allergy (Intermediate, Verified 11/04/22 08:58) HIVES, N/V No Known Drug Allergies Allergy (Unknown, Verified 11/04/22 08:58) none Is last menstrual period known: No Post menopausal: Yes HPI HPI Comments History of Present Illness Details She is here to discuss US results regarding fibroid stability. History of pelvic pain. Denies any VB. 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 Fibromyalgia GERD (gastroesophageal reflux disease) Hematuria Hepatitis History of blood transfusion HIV (human immunodeficiency virus infection) HTN (hypertension) Hx of renal calculi Sleep apnea Uterine fibroid Surgical History Hx of section Hx of cholecystectomy Hx of colonoscopy Hx of dilation and curettage Hx of reduction mammoplasty Hx of tubal ligation Family History Mother Breast cancer Father Heart problem Sister Bone cancer Family/Other Diabetes Social History Alcohol intake: current Alcohol intake frequency: does not drink Alcohol type: wine Patient Tobacco Use Status: Never used Tobacco Second Hand Smoke Exposure: No Sexual orientation: Straight/Heterosexual Gender identity: Female Female Reproductive History Menstrual Age of Menarche: 12 control method: permanent sterilization Date of last pap smear: 07/17/22 (negative) History of abnormal pap smear: Yes (ASCUS 2019, 2018, 2017) Date of Mammogram: 05/12/21 Physical Exam Vital Signs: Last Vital Signs BP 120/66 11/04/22 08:56 BMI result Body Mass Index 31.7 Results Reviewed Results Reviewed: EXAMINATION: US PELVIS COMPLETE CLINICAL INFORMATION: Benign neoplasm COMPARISON: Pelvic ultrasound 07/29/2022 TECHNIQUE: Transabdominal and transvaginal imaging was performed. FINDINGS: The uterus is of normal size and echogenicity measuring 7.4 x 4.1 x 5.7 cm. The endometrium is thickened and heterogeneous measuring 1.0 cm. Trace fluid in the endometrial canal. Nabothian cysts in the cervix. A 1.4 similar calcified uterine myoma previously measured 1.3 cm not significantly changed. Right ovary is of normal size and echogenicity. The right measures 1.7 x 0.7 x 1.1 cm for a volume of 0.7 mL. The left ovary was not identified sonographically. No adnexal mass. There is no pelvic free fluid. US/US pelvic and transvaginal IMPRESSION: 1.? The endometrium is thickened and heterogeneous measuring 1.0 cm with trace fluid in the endometrial canal. Recommend correlation with any history of postmenopausal bleeding and gynecologic evaluation and management. 2.? A 1.4 cm calcified uterine myoma not significantly changed. 3.? Unremarkable sonographic appearance of the right ovary. The left ovary was not identified sonographically. No adnexal mass. Assessment & Plan Assessment & Plan (1) Encounter to discuss test results: Code(s): Z71.2 - Person consulting for explanation of examination or test findings Plan: Discussed: US findings of: 1.? The endometrium is thickened and heterogeneous measuring 1.0 cm with trace fluid in the endometrial canal. Recommend correlation with any history of postmenopausal bleeding and gynecologic evaluation and management. 2.? A 1.4 cm calcified uterine myoma not significantly changed. 3.? Unremarkable sonographic appearance of the right ovary. The left ovary was not identified sonographically. No adnexal mass. Encouraged to report to Urology scheduled appointment regarding kidney stones and hematuria. Contact office with any PMB. Leiomyoma: common pelvic neoplasm. Differential diagnosis-may include leiomyosarcoma which is a rare uterine sarcoma 3-7/100,000, difficult to distinguish from fibroids on ultrasound from uterine sarcoma's. Unlikely any single test will have a highly positive predictive value. Report any PMB, Pelvic pressure, bloating, or pain. All of her questions and concerns were addressed to the best of my ability and shared decision making. She is agreeable to plan of care. (2) Uterine fibroid: Code(s): D25.9 - Leiomyoma of uterus, unspecified Coding Level of Care Code Est Pt Level 3 (08301) Diagnoses Encounter to discuss test results Z71.2 Uterine fibroid D25.9
[2022-11-04 08:56] VITALS: BP 120/66; BMI 31.7
== END 2022-11-04 10:51 | disposition home or self-care (01) ==
LOC: HO.HWS 08:23
PROVIDERS: PCP Internal Medicine; Visit Provider Advanced Practice Midwife
DX: Z71.2 Person consulting for explanation of examination or test findings (principal); D25.9 Leiomyoma of uterus, unspecified
CPT/HCPCS: 99213

== ENCOUNTER → 2022-11-04 08:23 | Outpatient (BNVA) | payer MEDICAID, SELFPAY | PROVIDERS: PCP Internal Medicine; Visit Provider Advanced Practice Midwife | DX: Z71.2 Person consulting for explanation of examination or test findings (principal); D25.9 Leiomyoma of uterus, unspecified | CPT/HCPCS: 99213 ==

== ENCOUNTER 2022-11-06 10:16 | Outpatient (AMB) | payer MEDICAID, SELFPAY ==
--- NOTE | 2022-11-06 06:55 | MHC.OFFVIS ---
Intake Intake Visit Reasons: BI Nephrolithiasis Intake Note: NEW Patient presents today to established treatment for Bilateral Nephrolithiasis: Patient stated having dysuria, pt has finished all her antibiotics. Meds- None Allergies to Antibiotic- No Known Allergies Blood Thinner- None PVR- 80 ml Customer Solutions Teammate Required: Yes Customer Solutions Teammate Language: Sr. Manager Name: Margarita Mc, EMILY/STEVENSON CHINO Information Interpreted: clinical only Physical Therapy Technician: Physical Therapy Technician Present Accompanied by: Self / Same As Patient Allergies shellfish derived Allergy (Intermediate, Verified 11/06/22 10:46) HIVES, N/V Medication List - Last Reconciled 11/06/22 by Cornelia Fields MD albuterol sulfate 2.5 mg inhalation Q4-6H PRN citalopram 20 mg PO DAILY diclofenac sodium 75 mg PO BID ooxcwtv-stn-slvcg-tenof alafen 256-119-795-10 mg (Genvoya) 1 tab PO QPM fluticasone propion-salmeterol 250-50 mcg/dose (Advair Diskus) 2 ea inhalation BID gabapentin 300 mg PO TID hydrocortisone 2.5% (Proctosol HC) 1 appl [place] BID linaclotide (Linzess) 145 mcg PO QAM lisinopril 5 mg PO DAILY meclizine 12.5 mg PO QID PRN ondansetron 4 mg PO Q6-8H PRN rosuvastatin (Crestor) 20 mg PO DAILY sertraline 100 mg PO DAILY simethicone 180 mg PO QID 30 days tizanidine 4 mg PO Q8H PRN zolpidem 10 mg PO BEDTIME HPI HPI Comments History of Present Illness Details America is a 62-year-old female who presents today to the office as a new patient evaluation for kidney stones. 11/06/2022-- America is a 62-year-old female who is here as a new patient evaluation for kidney stones. America is a Northern Irish-speaking female. Certified kettle worker was present during the visit. Her past medical history includes nicotine dependency, fibromyalgia, and female pelvic pain syndrome. She had a CAT scan done on 09/18/22 noting bilateral kidney stones. Results Reviewed -- In review of the CAT scan of the abdomen and pelvis that was done without IV contrast -- Multiple 1 mm right kidney stones and multiple left kidney stones, the largest measuring 6 mm. She reports burning sensation and pain on urination She points her pain to the lower abdomen and pelvic area, pain sometimes to left flank area. Evaluation today ? UA 11/06/22 -- Leukocytes: 3+ Og/uL. Blood: Trace. Plan: I am going to send her urine for culture today. I am going to put her on Macrobid 100 mg twice a day for 10 days pending urine culture. Metabolic workup with 24-hour urine collection. Depending on how she is doing, we will do a follow-up after the 24-hour urine. If she is still having the pain and bladder pressure, then we will set her up for a cystoscopy. Also, we will monitor the kidney stones at this time, I have not discussed any upcoming treatment as yet. 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 Fibromyalgia GERD (gastroesophageal reflux disease) Hematuria Hepatitis History of blood transfusion HIV (human immunodeficiency virus infection) HTN (hypertension) Hx of renal calculi Sleep apnea Uterine fibroid Surgical History Hx of section Hx of cholecystectomy Hx of colonoscopy Hx of dilation and curettage Hx of reduction mammoplasty Hx of tubal ligation Family History Mother Breast cancer Father Heart problem Sister Bone cancer Family/Other Diabetes Social History (Updated 12/02/22 @ 10:50 by Rosa Ceballos [facility]) Alcohol intake: current Alcohol intake frequency: does not drink Alcohol type: wine Patient Tobacco Use Status: Former Tobacco user Second Hand Smoke Exposure: No Sexual orientation: Straight/Heterosexual Gender identity: Female Female Reproductive History Menstrual Age of Menarche: 12 Review of Systems Const All systems reviewed & are unremarkable except as noted in HPI and below Reports no additional complaints Eyes Reports no additional complaints ENT Reports no additional complaints Card Denies dyspnea Resp Denies cough and Denies dyspnea GI Reports no additional complaints Reports no additional complaints Musc Reports no additional complaints Skin/Breast Denies rash and Denies unusual bruising Neuro Reports no additional complaints Psych Reports no additional complaints Endo Reports no additional complaints Flaquito/Lymph Reports no additional complaints Aller/Immun Reports no additional complaints Physical Exam Const General: cooperative, healthy appearing and no acute distress Orientation/consciousness: patient oriented x3 HEENT Head: Yes normal to inspection, Yes normocephalic and Yes atraumatic Eyes Conjunctivae: conjunctivae normal Neck Neck: Yes normal visual inspection and Yes trachea midline Chest Chest palpation & inspection: normal inspection of the chest Resp Effort & Inspection: normal respiratory effort Cardio Rate: regular rate GI Inspection: Yes normal to inspection Neuro General: patient oriented x3 Extrem General: No edema Psych Appearance: grossly normal Results AMB Urinalysis, Automated UA Leukoctes 500 Og/uL Last Edit by EMILY Hernandez on 11/06/22 10:53 3+ Margarita Mc 11/06/22 10:53 UA Nitrite Positive Last Edit by Margarita Mc [facility] on 11/06/22 10:53 UA Urobilinogen 0.2 mg/dL Last Edit by Margarita Mc Prashanth on 11/06/22 10:53 UA Protein 0 mg/dL Last Edit by Margarita Mc [facility] on 11/06/22 10:53 UA pH 7.0 Last Edit by Margarita Mc Prashanth on 11/06/22 10:53 UA Blood 10 [place]/uL Last Edit by Margarita Mc Prashanth on 11/06/22 10:53 UA Specific Logan 1.015 Last Edit by Margarita Mc Prashanth on 11/06/22 10:53 UA Ketone Negative Last Edit by EMILY Hernandez on 11/06/22 10:53 UA Bilirubin 0 mg/dL Last Edit by Margarita Mc [facility] on 11/06/22 10:53 UA Glucose 0 mg/dL Last Edit by Margarita Mc [facility] on 11/06/22 10:53 Results Reviewed Results Reviewed: Laboratory Last Values Urine pH (Auto) 7.0 11/06/22 10:35 Specific Logan (Auto) 1.015 11/06/22 10:35 Urine Protein (Auto) 0 mg/dL 11/06/22 10:35 Glucose (UA)(Auto) 0 mg/dL 11/06/22 10:35 Urine Ketones (Auto) Negative 11/06/22 10:35 Urine Blood (Auto) 10 [place]/uL 11/06/22 10:35 Urine Nitrite (Auto) Positive 11/06/22 10:35 Urine Bilirubin (Auto) 0 mg/dL 11/06/22 10:35 Urine Urobilinogen (Auto) 0.2 mg/dL 11/06/22 10:35 Leukocyte Esterase (Auto) 500 Og/uL 11/06/22 10:35 Date of service: 09/18/22 EXAMINATION: CT ABDOMEN AND PELVIS WITHOUT CONTRAST CLINICAL INFORMATION: Lower abdominal pain COMPARISON: October 01, 2021 FINDINGS: LUNG BASES: Since previous study patient has developed bibasilar airspace disease bronchial wall thickening being present as well as a few broncholiths within the solid appearing portion of the left lower lobe density. Solid component of left lower lobe lesion measures 3.3 x 2.6 cm in size. No pleural or pericardial effusion identified. LIVER, GALLBLADDER, AND BILIARY TREE: The liver is normal in size, shape, and attenuation. No focal hepatic lesion or biliary ductal dilatation is present. Patient is status post cholecystectomy.? PANCREAS: Unremarkable. No abnormal mass or peripancreatic inflammatory change. SPLEEN: Unremarkable.? ADRENAL GLANDS: Unremarkable.? KIDNEYS AND URETERS: Right kidney: There is a 1 cm cyst seen within the interpolar region. There are multiple 1 mm or smaller calculi present without hydronephrosis. No suspicious solid mass identified. Visualized portions of the right ureter unremarkable. ?Left kidney: Within the upper pole there is a 4.8 x 4.3 cm cyst. There is a 5 mm nonobstructing interpolar calculus present. There are 4 nonobstructing lower pole calculi present the largest measuring 6 mm in diameter and with Hounsfield unit measurements of approximately 500. This lies approximately 10 cm from the posterior axillary line. No hydronephrosis noted. No suspicious solid mass identified. The renal cysts appear benign and do not require follow-up. BLADDER: Decompressed. Bladder wall is not adequately evaluated without distention. GASTROINTESTINAL TRACT: No dilated loops of large or small bowel are evident. No free air or free fluid is noted. There is a large stool burden present. No pericolonic inflammatory change. The appendix is visualized and appears unremarkable. The appendix contains a 3 mm appendicolith. ABDOMINAL WALL: No significant hernia is appreciated.? LYMPH NODES: No lymphadenopathy appreciated. VASCULAR: Unremarkable. PELVIC VISCERA: Fibroid uterus present.? OSSEOUS STRUCTURES: No suspicious destructive bony lesion identified. Degenerative disc disease L5-S1 level.? IMPRESSION: Bibasilar interstitial and airspace disease with bronchial thickening suspicious for possible pneumonia. ? Large stool burden. ? Bilateral nephrolithiasis without evidence of obstructive uropathy.? ? Fleischner guidelines were followed. Assessment & Plan Assessment & Plan (1) Bilateral nephrolithiasis: Code(s): N20.0 - Calculus of kidney (2) Pelvic pain: Code(s): R10.2 - Pelvic and perineal pain (3) Urinary tract infection symptoms: Code(s): R39.9 - Unspecified symptoms and signs involving the genitourinary system Plan I am going to send her urine for culture today. I am going to put her on Macrobid 100 mg twice a day for 10 days pending urine culture. Metabolic workup with 24-hour urine collection. Depending on how she is doing, we will do a follow-up after the 24-hour urine. If she is still having the pain and bladder pressure, then we will set her up for a cystoscopy. Also, we will monitor the kidney stones at this time, I have not discussed any upcoming treatment as yet. Orders: Orders Urine Culture 11/06/22 N39.0 - Urinary tract infection, site not specified AMB Post Void Residual by ultrasound 11/06/22 N39.8 - Other specified disorders of urinary system AMB Urinalysis Automated 11/06/22 Z13.9 - Encounter for screening, unspecified Medications: New nitrofurantoin monohyd/m-cryst 100 mg (Macrobid) must administer with a meal/food 100 mg PO BID 20 caps 0RF Patient Instructions: The patient had an opportunity to ask questions regarding treatment plan. All questions were answered. Imaging, Laboratory studies and physical exam results were discussed and reviewed in detail. No major barriers to understanding were identified. The patient expressed understanding and agreement with the above treatment plan. The patient is aware they should contact our office by phone for worsening of their current condition or the appearance of new symptoms. Compliance is encouraged with any medications and followup testing that is ordered. It is a privilege to be allowed the opportunity to participate in the urologic care of your patient. If you have any questions or concerns regarding treatment for the above conditions please do not hesitate to contact me. The office telephone contact is [phone]. This note is constructed in part using voice recognition software. While every effort has been made to ensure accuracy operations research group manager errors may have been included. Yours sincerely, Cornelia Fields MD Coding Level of Care Code New Pt Level 4 (51605) Diagnoses Bilateral nephrolithiasis N20.0 Pelvic pain R10.2 Urinary tract infection symptoms R39.9
== END 2022-11-06 11:08 | disposition home or self-care (01) ==
PROVIDERS: PCP Internal Medicine; Visit Provider Urology
DX: N20.0 Calculus of kidney (principal); R10.2 Pelvic and perineal pain; R39.9 Unspecified symptoms and signs involving the genitourinary system
CPT/HCPCS: 99204

== ENCOUNTER 2022-11-06 10:16 | Outpatient (REF) | payer MEDICAID, SELFPAY | END 2022-11-06 10:17 | disposition home or self-care (01) | LOC: HO.LAB 10:16 | PROVIDERS: PCP Internal Medicine; Visit Provider Urology | DX: N39.0 Urinary tract infection, site not specified (principal); N20.0 Calculus of kidney; R10.2 Pelvic and perineal pain; N39.8 Other specified disorders of urinary system; Z79.899 Other long term (current) drug therapy | CPT/HCPCS: 87086; 87088; 87186; 99202 ==

== ENCOUNTER 2022-11-17 10:00 | Outpatient (REF) | payer MEDICAID, SELFPAY ==
--- NOTE | ~2022-11-17 | CT_ITS ---
EXAMINATION: CT CHEST WITHOUT CONTRAST CLINICAL INFORMATION: Interstitial lung disease COMPARISON: Previous chest x-ray most recent September [address] May 2022 TECHNIQUE: Multidetector volumetric CT imaging of the chest was done. Axial MIP volume rendering provided. Sagittal and coronal reformatted images were obtained. This CT examination was performed using dose optimization techniques as appropriate, variously including the following: *Automated exposure control *Adjustment of mA and/or kV according to patient size (this includes techniques or standardized protocols for targeted exams where dose is matched to indication/reason for exam; i.e. extremities or head) *Use of iterative reconstruction technique DLP: 144 mGy-cm FINDINGS: LUNGS: Post surgical changes at the right lung apex with surgical stable line. There is evidence of mild bronchial wall thickening, bronchial soft tissue opacification, small peribronchial nodules and increased peribronchial attenuation seen in the left lower lobe. This does not appear appreciably changed. Subtler changes are seen in the right lower lobe, also unchanged. There is more peripheral or subpleural increased parenchymal attenuation, again left lower lobe greater than right. It is uncertain whether this could represent mild interstitial lung disease or is related to airways disease. This is similar to prior exams.. There are scattered small separate isolated pulmonary nodules or micronodules, the majority of which are calcified. There are linear branching calcifications probably representing calcified broncholiths. MEDIASTINUM: The mediastinum is normal. CORONARY ARTERY CALCIFICATION: None visualized on this study. PLEURA: There is no pleural effusion. No pleural mass or thickening. AXILLA: No lymphadenopathy. UPPER ABDOMEN: The gallbladder has been removed. Stable 4.5 cm left retroperitoneal cyst OSSEOUS STRUCTURES: Degenerative changes of the spine. CT/CT chest wo IV con IMPRESSION: Airways disease in both lower lobes, left greater than right. More peripheral or subpleural increased groundglass attenuation in both lower lobes. It is uncertain whether this is related to airways disease or could represent interstitial lung disease. This is similar to previous exams. Fleischner guidelines were followed.
== END 2022-11-17 10:01 | disposition home or self-care (01) ==
LOC: HO.CT 10:00
PROVIDERS: PCP Internal Medicine; Visit Provider Nurse Practitioner Family
DX: J84.9 Interstitial pulmonary disease, unspecified (principal); Z87.891 Personal history of nicotine dependence
CPT/HCPCS: 71250

== ENCOUNTER 2022-12-02 10:40 | Outpatient (AMB) | payer MEDICAID, SELFPAY ==
[2022-12-02 10:44] VITALS: BP 144/72; PULSE 60; O2SAT 98; BMI 31.6
--- NOTE | 2022-12-02 10:44 | A.OFFVIS_ITS ---
Intake Vital Signs 12/02/22 10:44 Height 5 ft 3 in Weight 178 lb 9.191 oz BMI 31.6 BP 144/72 H Blood Pressure Location Rt brachial Position Sitting Pulse 60 Pulse Source Pulse Oximeter Pulse Oximetry (%) 98 Oxygen Delivery Method Room Air Intake Visit Reasons: Abnormal CT scan Intake Note: Pt reports shortness of breath on exertion, trouble sleeping, and some wheezing. 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 Patient has completed her CT chest that not showing significant interstitial disease. Her pulmonary function test is pending. She is complaining of orthopnea and lower extremity edema. 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 Fibromyalgia GERD (gastroesophageal reflux disease) Hematuria Hepatitis History of blood transfusion HIV (human immunodeficiency virus infection) HTN (hypertension) Hx of renal calculi Sleep apnea Uterine fibroid Surgical History Hx of section Hx of cholecystectomy Hx of colonoscopy Hx of dilation and curettage Hx of reduction mammoplasty Hx of tubal ligation Family History Mother Breast cancer Father Heart problem Sister Bone cancer Family/Other Diabetes Social History (Updated 12/02/22 @ 10:50 by Rosa Ceballos [facility]) Alcohol intake: current Alcohol intake frequency: does not drink Alcohol type: wine Patient Tobacco Use Status: Former Tobacco user Second Hand Smoke Exposure: No Sexual orientation: Straight/Heterosexual Gender identity: Female Female Reproductive History Menstrual Age of Menarche: 12 Review of Systems Const Denies daytime sleepiness, Denies excessive sweating, Denies fatigue, Denies fever(s), Denies lethargy, Denies malaise, Denies night sweats, Denies snoring and Denies weight loss Eyes Denies blurry vision and Denies itchy eyes ENT Denies nasal congestion, Denies post nasal drip, Denies sinus pain, Denies sinus pressure and Denies other ( Thrush) Card Denies chest pain, Denies pedal edema, Reports leg edema, Denies dyspnea, Reports dyspnea on exertion, Reports orthopnea and Reports paroxysmal nocturnal dyspnea Resp Denies cough, Denies hemoptysis, Denies excessive phlegm production, Denies dyspnea, Reports dyspnea on exertion, Denies snoring and Denies wheezing GI Denies abdominal pain and Denies heartburn Musc Denies myalgias, Denies arthralgias and Denies joint swelling Skin/Breast Denies rash Neuro Denies memory loss and Denies seizure-like activity Psych Denies abnormal sleep pattern, Denies anxiety and Denies memory loss Endo Denies excessive sweating, Denies fatigue and Denies heat intolerance Flaquito/Lymph Denies easy bruising Aller/Immun Denies itchy eyes, Denies seasonal rhinorrhea and Denies wheezing Physical Exam Vital Signs: Last Vital Signs Pulse 60 12/02/22 10:44 BP 144/72 H 12/02/22 10:44 Pulse Ox 98 12/02/22 10:44 Oxygen Delivery Method Room Air 12/02/22 10:44 BMI result Body Mass Index 31.6 Const General: no acute distress and alert Nutritional Appearance: not obese Orientation/consciousness: Other orientation findings ( oriented) HEENT Head: Yes atraumatic Eyes General: appearance normal, both eyes and all related structures Sclerae: sclerae normal EOM: EOMs intact bilaterally Neck Neck: Yes supple Lymphatic: no lymphadenopathy noted Resp Effort & Inspection: normal respiratory effort and no use of accessory muscles Auscultation: clear to auscultation bilaterally Cardio Rate: regular rate Rhythm: regular rhythm Heart sounds: no gallops, no murmurs and no rubs Skin General skin exam: other ( warm) Extrem General: No clubbing, No cyanosis and Yes edema (1+ bilateral) Assessment & Plan Assessment & Plan (1) Asthma: Code(s): J45.909 - Unspecified asthma, uncomplicated Plan: Possible underlying asthma. No evidence of ILD on most recent CT chest. PFT is pending. Will continue on Advair and albuterol MDI. (2) Dyspnea on exertion: Code(s): R06.09 - Other forms of dyspnea Plan: Now with orthopnea, paroxysmal nocturnal dyspnea, dyspnea on exertion. Will obtain 2D echocardiogram and start on empiric diuretic. Orders: Orders CA echo transthoracic complete Today R06.09 - Other forms of dyspnea Medications: New furosemide (Lasix) 20 mg PO DAILY 30 tabs 6RF 30 days Coding Level of Care Code Est Pt Level 4 (37992) Diagnoses Asthma J45.909 Dyspnea on exertion R06.09
== END 2022-12-02 11:00 | disposition home or self-care (01) ==
PROVIDERS: PCP Internal Medicine; Visit Provider Internal Medicine Pulmonary Disease
DX: J45.909 Unspecified asthma, uncomplicated (principal); R06.09 Other forms of dyspnea
CPT/HCPCS: 99214

== ENCOUNTER → 2022-12-02 10:40 | Outpatient (BNVA) | payer MEDICAID, SELFPAY | PROVIDERS: PCP Internal Medicine; Visit Provider Internal Medicine Pulmonary Disease | DX: J45.909 Unspecified asthma, uncomplicated (principal); R06.02 Shortness of breath; Z21 Asymptomatic human immunodeficiency virus [HIV] infection status; Z79.899 Other long term (current) drug therapy | CPT/HCPCS: 99212 ==

== ENCOUNTER 2022-12-22 10:49 | Outpatient (REF) | payer MEDICAID, SELFPAY ==
[2022-12-22 11:06] LABS: MANUAL DIFF FLAG NO
[2022-12-22 11:53] LABS: Basophils Percent Auto 0.1 % (0-2); Eosinophils Absolute Auto 0.1 X10*3/uL (0.0-0.4); Eosinophils Percent Auto 0.8 % (0-4); Hematocrit 36.1 % (37.0-47.0); Hemoglobin 11.5 g/dl (12.0-16.0); Imm Gran Abs Auto 0.05 X10*3/uL (0.00-0.03); Imm Gran Pct Auto 0.6 % (0.0-0.4); Lymphocytes Absolute Auto 1.6 X10*3/uL (1.2-4.9); Lymphocytes Percent Auto 18.8 % (20-40); Mean Corpuscular HGB Conc 31.9 g/dl (31.0-35.0); Mean Corpuscular Hemoglobin 28.8 pg (27.0-33.0); Mean Corpuscular Volume 90.3 fL (80.0-98.0); Mean Platelet Volume 10.2 fL (9.4-12.3); Monocytes Absolute Auto 0.4 X10*3/uL (0.1-1.2); Monocytes Percent Auto 5.2 % (2-11); Neutrophils Absolute Auto 6.1 x10*3/uL (2.0-8.3); Neutrophils Percent Auto 74.5 % (45-73); Platelet Count 256 X10*3/uL (160-400); Red Cell Distribution Width 13.2 % (11.0-16.0); White Blood Count 8.2 X10*3/uL (4.8-10.8)
[2022-12-22 14:49] LABS: Alanine Aminotransferase 8 U/L (0-31); Albumin Level 3.5 g/dL (3.5-5.0); Alkaline Phosphatase 77 U/L (39-117); Anion Gap 9 (12-20); Aspartate Amino Transferase 12 U/L (5-31); Bilirubin Total 0.2 mg/dL (0.0-1.0); Blood Urea Nitrogen 17 mg/dL (9-16); Calcium 9.4 mg/dL (8.4-10.2); Carbon Dioxide 27 mmol/L (22-29); Chloride 109 mmol/L (96-108); Estimated Glomerular Filt Rate > 60; Glucose Random 94 mg/dL (60-115); Potassium 4.1 mmol/L (3.3-5.1); Sodium 141 mmol/L (135-145); Total Protein 8.3 g/dL (6.5-8.0)
[2022-12-22 14:51] LABS: Thyroid Stimulating Hormone 0.91 uIU/mL (0.32-4.0)
== END 2022-12-22 10:50 | disposition home or self-care (01) ==
LOC: HO.LAB 10:49
PROVIDERS: PCP Internal Medicine; Visit Provider Internal Medicine
DX: H81.10 Benign paroxysmal vertigo, unspecified ear (principal); M17.12 Unilateral primary osteoarthritis, left knee; M51.16 Intervertebral disc disorders with radiculopathy, lumbar region; R63.4 Abnormal weight loss
CPT/HCPCS: 36415; 80053; 84443; 85025

== ENCOUNTER 2022-12-28 11:49 | Outpatient (AMB) | payer MEDICAID, SELFPAY ==
--- NOTE | 2022-12-28 12:11 | A.OFFVIS_ITS ---
Intake Intake Visit Reasons: follow up/litholink Intake Note: Patient presents today for a follow-up on Bilateral nephrolithiasis, Pelvic pain, Urinary Tract Infection Symptoms: Meds- Nitro Allergies to Antibiotic- No Known Allergies Blood Thinner- None Demand Generator Manager Required: Yes Demand Generator Manager Language: Tajik Allergies shellfish derived Allergy (Intermediate, Verified 11/06/22 10:46) HIVES, N/V HPI HPI Comments History of Present Illness Details America is a 62-year-old female who presents today to the office for a follow-up. 12/28/2022? 62 year old female, approximate 30 pack year smoker with underlying history of HIV on antivirals under the care of [facility], breast cancer s/p lumpectomy in 2013 and multiple occurrences of hospitalizations for pneumonia, who is followed by Pulmonary. She is followed today for bilateral nephrolithiasis, pelvic pain and urinary tract infections. America is a Tajik-speaking female. Certified housing case manager was present during the visit. She was last seen by me on 11/06/2022 for bilateral nephrolithiasis. Urine for culture was ordered at that time. Metabolic workup with 24-hour urine collection was ordered and she was advised to follow-up after 24-hour urine collection at that time. She had the performed the 24- hour and sent it back to the lab, however we have not received results. I reviewed the urine culture results from 11/06/2022 which came back Escherichia coli > 100,000 cfu/mL She complains of persistent pelvic pain. She has seen maintenance plumber in 10/2022, and is being followed for uterine fibroid She denies any hematuria. Pelvic/bladder pain. I have discussed further evaluation with cystoscopy hydrodistenstion. Consent obtained Review of charts: Last visit: 11/06/2022? America is a 62-year-old female who is here as a new patient evaluation for kidney stones. America is a Tajik-speaking female. Certified housing case manager was present during the visit. 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 She had a CAT scan done on 09/18/22 noting bilateral kidney stones.? Results Reviewed -- In review of the CAT scan of the abdomen and pelvis that was done without IV contrast -- Multiple 1 mm right kidney stones and multiple left kidney stones, the largest measuring 6 mm.? She reports burning sensation and pain on urination She points her pain to the lower abdomen and pelvic area, pain sometimes to left flank area. Evaluation today ? UA 11/06/22 -- Leukocytes: 3+ Og/uL. Blood: Trace. Plan:I am going to send her urine for culture today. Macrobid 100 mg twice a day for 10 days pending urine culture.? Metabolic workup with 24-hour urine collection.? Depending on how she is doing, we will do a follow-up after the 24-hour urine.? If she is still having the pain and bladder pressure, then we will set her up for a cystoscopy.? Also, we will monitor the kidney stones at this time, I have not discussed any upcoming treatment as yet. 12/28/2022: Plan: Consent was obtained, Cystoscopy hydrodistention was discussed to be scheduled. Will call for telehealth once I have the litholink results. [facility] Medical History Anemia Arthritis Asthma Depression Difficulty swallowing Elevated cholesterol 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 Fibromyalgia GERD (gastroesophageal reflux disease) Hematuria Hepatitis History of blood transfusion HIV (human immunodeficiency virus infection) HTN (hypertension) Hx of renal calculi Sleep apnea Uterine fibroid Surgical History Hx of section Hx of cholecystectomy Hx of colonoscopy Hx of dilation and curettage Hx of reduction mammoplasty Hx of tubal ligation Family History Mother Breast cancer Father Heart problem Sister Bone cancer Family/Other Diabetes Social History (Updated 12/02/22 @ 10:50 by Rosa Ceballos CMA) Alcohol intake: current Alcohol intake frequency: does not drink Alcohol type: wine Patient Tobacco Use Status: Former Tobacco user Second Hand Smoke Exposure: No Sexual orientation: Straight/Heterosexual Gender identity: Female Female Reproductive History Menstrual Age of Menarche: 12 Review of Systems Const All systems reviewed & are unremarkable except as noted in HPI and below Reports no additional complaints Eyes Reports no additional complaints ENT Reports no additional complaints Card Denies dyspnea Resp Denies cough and Denies dyspnea GI Reports no additional complaints Reports no additional complaints Musc Reports no additional complaints Skin/Breast Denies rash and Denies unusual bruising Neuro Reports no additional complaints Psych Reports no additional complaints Endo Reports no additional complaints Flaquito/Lymph Reports no additional complaints Aller/Immun Reports no additional complaints Physical Exam Const General: cooperative, healthy appearing and no acute distress Orientation/consciousness: patient oriented x3 HEENT Head: Yes normal to inspection, Yes normocephalic and Yes atraumatic Eyes Conjunctivae: conjunctivae normal Neck Neck: Yes normal visual inspection and Yes trachea midline Chest Chest palpation & inspection: normal inspection of the chest Resp Effort & Inspection: normal respiratory effort Cardio Rate: regular rate GI Inspection: Yes normal to inspection Neuro General: patient oriented x3 Extrem General: No edema Psych Appearance: grossly normal Results Reviewed Results Reviewed: Ordered:? Urine Culture? Procedure?Result?Verified?Site ? Urine Culture? Final?11/09/22 ? ? ?Organism 1?Escherichia coli ? Quant?> 100,000 cfu/mL ? ESBL Note:? NOTE: Extended-Spectrum Beta-Lactamase enzyme present ? E coli? M.I.C.? ? RX? --------- ---?Ampicillin?>=32?R?Ceftriaxone? >=64?R?Ertapenem? <=0.12? ? ?S?Gentamicin?<=1? S?Levofloxacin?1? I?Nitrofurantoin?<=16?S?Trimethoprim/Sulfamethoxazole? <=20?S Assessment & Plan Assessment & Plan (1) Bilateral nephrolithiasis: Code(s): N20.0 - Calculus of kidney (2) Pelvic pain: Code(s): R10.2 - Pelvic and perineal pain (3) Urinary tract infection symptoms: Code(s): R39.9 - Unspecified symptoms and signs involving the genitourinary system Plan Cystoscopy hydrodistention was discussed to be scheduled. Will call for telehealth once I have the litholink results. Patient Instructions: The patient had an opportunity to ask questions regarding treatment plan. All questions were answered. Imaging, Laboratory studies and physical exam results were discussed and reviewed in detail. No major barriers to understanding were identified. The patient expressed understanding and agreement with the above treatment plan.? ? ? The patient is aware they should contact our office by phone for worsening of their current condition or the appearance of new symptoms. Compliance is encouraged with any medications and followup testing that is ordered.? ? ? It is a privilege to be allowed the opportunity to participate in the urologic care of your patient. If you have any questions or concerns regarding treatment for the above conditions please do not hesitate to contact me. The office telephone contact is [phone].? ? ? This note is constructed in part using voice recognition software. While every effort has been made to ensure accuracy program coordinator executive education errors may have been included.? ? ? Yours sincerely,? ? ? Cornelia Fields MD? Coding Level of Care Code Est Pt Level 4 (48844) Diagnoses Bilateral nephrolithiasis N20.0 Pelvic pain R10.2 Urinary tract infection symptoms R39.9
== END 2022-12-28 12:21 | disposition home or self-care (01) ==
PROVIDERS: PCP Internal Medicine; Visit Provider Urology
DX: N20.0 Calculus of kidney (principal); R10.2 Pelvic and perineal pain; R39.9 Unspecified symptoms and signs involving the genitourinary system
CPT/HCPCS: 99214

== ENCOUNTER → 2022-12-28 11:49 | Outpatient (BNVA) | payer MEDICAID, SELFPAY | PROVIDERS: PCP Internal Medicine; Visit Provider Urology | DX: R10.2 Pelvic and perineal pain (principal); N20.0 Calculus of kidney; R39.9 Unspecified symptoms and signs involving the genitourinary system | CPT/HCPCS: 99212 ==

== ENCOUNTER → 2022-12-30 11:50 | Outpatient (REF) | payer MEDICAID, SELFPAY ==
--- NOTE | 2022-12-30 11:53 | CA_ITS ---
Transthoracic Echocardiogram Patient (Last, First, Middle): America Bower, Gender: Female Date of : 1960 Age: 62 Procedure Date: 12/30/2022 Procedure Type: Transthoracic Echocardiogram Location: OP Height: 160.02 cm Weight: 81.65 kg BSA: 1.85 m2 Heart Rate: bpm BP: 142 / 80 mmHg Slunk Skinner: Referring MD: Jann Healy MD Symptoms: R06.09 - Other forms of dyspnea Study Quality: Fair ECG Rhythm: Sinus Conclusions: - The left ventricular systolic function is normal. The calculated ejection fraction is 62% by biplane method. - No obvious valvular pathology seen on this study. Findings Left Ventricle Normal left ventricular cavity size. The left ventricular systolic function is normal. The calculated ejection fraction is 62% by biplane method. There is no evidence of regional wall motion abnormalities. Diastolic function is normal for age. There is mild septal asymmetric hypertrophy. Right Ventricle Normal right ventricular cavity size and systolic function. Atria Both atria are normal in size. Aortic Valve There is a normal trileaflet aortic valve. There is no aortic valve stenosis. There is no aortic valve regurgitation. Mitral Valve The mitral valve appears normal. There is no mitral valve regurgitation. There is no mitral valve stenosis. Pulmonic Valve The pulmonic valve is likely normal. Tricuspid Valve Normal tricuspid valve structure. There is trace tricuspid valve regurgitation. There is no evidence of pulmonary hypertension. Great Vessels The asc aorta is normal in size. Venous The inferior vena cava is normal in size and collapses greater than 50% with inspiration. Pericardium/Pleural There is no evidence of pericardial effusion. Prior Study Comparison No prior study available for comparison. Recommendations, Care & Conclusions No obvious valvular pathology seen on this study. Measurements 2D Linear Measurements IVSd: 1.25 0.6-0.9/0.6-1.0 cm LVIDd: 4.60 3.9-5.3/4.2-5.9 cm LVIDd Index: 2.49 2.4-3.2/2.2-3.1 cm/m2 LVIDs: 2.71 2.0-3.6 cm LVPWd: 0.75 0.7-1.1 cm Ao Root: 2.90 2.1-3.5 cm LV Mass: 197.77 67-162/88-224 g LV Mass Index: 106.90 43-95/49-115 g/m2 LVOT Diam: 2.10 3.0+(-)1.3 cm 2D Systolic Function EF 4C: 58.20 >55% EF 2C: 63.50 >55% EF BiP: 61.90 >55% Mitral Valve MV Pk E: 0.57 MV PK A: 0.71 MV Decel Time: 234.00 E/A: 0.80 E'Lateral: 11.60 E'Medial: 7.51 E/E' Med: 7.60 E/E' Lat: 4.90 PHT: 69.00 MVA PHT: 3.19 Decel [place]: 2.43 Aortic Valve AoV Pk Sandeep: 1.43 AoV Mn Sandeep: 0.90 AoV VTI: 0.31 AoV Pk Grad: 8.00 Aov Mn Grad: 4.00 SERAFIN Cont.VTI: 1.96 LVOT LVOT Pk Sandeep: 0.76 LVOT Mn Sandeep: 0.56 LVOT VTI: 0.18 LVOT Pk Grad: 2.00 LVOT Mn Grad: 1.00 LVOT Diam: 2.10 LVOT Area: 3.46 Diastolic Function MV Pk E: 0.57 MV Pk A: 0.71 E/A: 0.80 E'Medial: 7.51 E/E' Med: 7.60 E' Laterial: 11.60 E/E' Lat: 4.90 Right Ventricle TAPSE (mm): 20.00 TVS' Sandeep: 13.00 Tricuspid Valve TR Pk Sandeep: 1.38 TR Pk Grad: 8.00 RA Press: 3.00 RVSP: 11.00 Great Vessels Aorta Ao Root-2D: 2.90 2.0-3.7 cm Ao Asc: 3.60 2.1-3.4 cm Updated in Other Vendor System with Status of Final Rafi Greene MD electronically signed on 12/31/2022 9:03:48 AM with status of Final
== END ==
LOC: HO.CARD 11:50
PROVIDERS: PCP Internal Medicine; Visit Provider Internal Medicine Pulmonary Disease
DX: R06.09 Other forms of dyspnea (principal)
CPT/HCPCS: 93306

== ENCOUNTER → 2022-12-30 11:53 | Outpatient (BNV) | payer MEDICAID, SELFPAY | PROVIDERS: PCP Internal Medicine; Visit Provider Internal Medicine | DX: R94.31 Abnormal electrocardiogram [ECG] [EKG] (principal) | CPT/HCPCS: 93306 ==

== ENCOUNTER 2023-01-01 08:42 | Outpatient (AMB) | payer MEDICAID, SELFPAY ==
[2023-01-01 08:56] VITALS: BP 117/70; PULSE 77; O2SAT 97; BMI 31.8
--- NOTE | 2023-01-01 08:56 | A.OFFVIS_ITS ---
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 Patient has completed her CT chest that does not demonstrate significant interstitial disease. Her pulmonary function test is pending. After the last office visit she has completed her 2D echocardiogram that was essentially normal. She also was started on Lasix 20 mg daily with improvement in her dyspnea on exertion. She does complain of intermittent wheezing with exertion, particularly at night. [facility] Medical History Anemia Arthritis Asthma Depression Difficulty swallowing Elevated cholesterol 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 Fibromyalgia GERD (gastroesophageal reflux disease) Hematuria Hepatitis History of blood transfusion HIV (human immunodeficiency virus infection) HTN (hypertension) Hx of renal calculi Sleep apnea Uterine fibroid Surgical History Hx of section Hx of cholecystectomy Hx of colonoscopy Hx of dilation and curettage Hx of reduction mammoplasty Hx of tubal ligation Family History Mother Breast cancer Father Heart problem Sister Bone cancer Family/Other Diabetes Social History Alcohol intake: current Alcohol intake frequency: does not drink Alcohol type: wine Patient Tobacco Use Status: Former Tobacco user Second Hand Smoke Exposure: No Sexual orientation: Straight/Heterosexual Gender identity: Female Female Reproductive History Menstrual Age of Menarche: 12 Review of Systems Const Denies daytime sleepiness, Denies excessive sweating, Denies fatigue, Denies fever(s), Denies lethargy, Denies malaise, Denies night sweats, Denies snoring and Denies weight loss Eyes Denies blurry vision and Denies itchy eyes ENT Denies nasal congestion, Denies post nasal drip, Denies sinus pain, Denies sinus pressure and Denies other ( Thrush) Card Denies chest pain, Denies pedal edema, Denies dyspnea, Reports dyspnea on exertion, Denies orthopnea and Denies paroxysmal nocturnal dyspnea Resp Denies cough, Denies hemoptysis, Denies excessive phlegm production, Denies dyspnea, Reports dyspnea on exertion, Denies snoring and Reports wheezing GI Denies abdominal pain and Denies heartburn Musc Denies myalgias, Denies arthralgias and Denies joint swelling Skin/Breast Denies rash Neuro Denies memory loss and Denies seizure-like activity Psych Denies abnormal sleep pattern, Denies anxiety and Denies memory loss Endo Denies excessive sweating, Denies fatigue and Denies heat intolerance Flaquito/Lymph Denies easy bruising Aller/Immun Denies itchy eyes, Denies seasonal rhinorrhea and Reports wheezing Physical Exam Vital Signs: Last Vital Signs Pulse 77 01/01/23 08:56 BP 117/70 01/01/23 08:56 Pulse Ox 97 01/01/23 08:56 Oxygen Delivery Method Room Air 01/01/23 08:56 BMI result Body Mass Index 31.8 Const General: no acute distress and alert Nutritional Appearance: not obese Orientation/consciousness: Other orientation findings ( oriented) HEENT Head: Yes atraumatic Eyes General: appearance normal, both eyes and all related structures Sclerae: sclerae normal EOM: EOMs intact bilaterally Neck Neck: Yes supple Lymphatic: no lymphadenopathy noted Resp Effort & Inspection: normal respiratory effort and no use of accessory muscles Auscultation: clear to auscultation bilaterally Cardio Rate: regular rate Rhythm: regular rhythm Heart sounds: no gallops, no murmurs and no rubs Skin General skin exam: other ( warm) Extrem General: No clubbing, No cyanosis and No edema Assessment & Plan Assessment & Plan (1) Dyspnea on exertion: Code(s): R06.09 - Other forms of dyspnea Plan: Improved after initiation on Lasix 20 mg daily. Continue current regimen. Results of 2D echocardiogram reviewed. (2) Reactive airway disease: Code(s): J45.909 - Unspecified asthma, uncomplicated Plan: PFT is still pending. Patient still complains of some wheezing on Advair. Will switch to Trelegy. Continue albuterol MDI. Medications: New kzxyyvmsvko-frnmjmunq-eepyqmsl 200-62.5-25 mcg (Trelegy Ellipta) 1 inh inhalation DAILY 1 ea 6RF 30 days Coding Level of Care Code Est Pt Level 4 (12809) Diagnoses Dyspnea on exertion R06.09 Reactive airway disease J45.909
== END 2023-01-01 09:06 | disposition home or self-care (01) ==
PROVIDERS: PCP Internal Medicine; Visit Provider Internal Medicine Pulmonary Disease
DX: R06.09 Other forms of dyspnea (principal); J45.909 Unspecified asthma, uncomplicated
CPT/HCPCS: 99214

== ENCOUNTER → 2023-01-01 08:42 | Outpatient (BNVA) | payer MEDICAID, SELFPAY | PROVIDERS: PCP Internal Medicine; Visit Provider Internal Medicine Pulmonary Disease | DX: J45.909 Unspecified asthma, uncomplicated (principal); R06.09 Other forms of dyspnea; Z79.899 Other long term (current) drug therapy | CPT/HCPCS: 99212 ==

== ENCOUNTER 2023-01-16 12:10 | Emergency (ER) | payer MEDICAID, SELFPAY ==
--- NOTE | ~2023-01-16 | XR_ITS ---
EXAMINATION: XR CHEST CLINICAL INFORMATION: Cough and fever COMPARISON: CT chest 11/17/2022 TECHNIQUE: 2 views of the chest were obtained. FINDINGS: The lungs are well-expanded with bandlike atelectasis in lingula. Rest of the lungs are clear. Heart size and pulmonary vascularity is normal. No gross bony abnormality seen. XR/XR chest 2V IMPRESSION: Left lingular platelike atelectasis.
[2023-01-16 12:14] VITALS: BP 127/97; PULSE 74; RESP 18; TEMP 36.6; O2SAT 99; BMI 31.9
--- NOTE | 2023-01-16 12:15 | ED.GENADULT ---
HPI - General Adult General Chief complaint: Upper Respiratory Symptoms Stated complaint: Fever/Fatigue Time Seen by Provider: 01/16/23 12:23 Source: [facility] [place] Mode of arrival: ambulatory Limitations: language barrier History of Present Illness HPI narrative: 62-year-old Malawian-speaking female with past medical history of kidney stones, HIV on HAART therapy., hypertension, anemia, osteoarthritis, fibromyalgia, GERD, varicose veins, hyperlipidemia, depression, hepatitis, asthma, obstructive sleep apnea here with complaints of cough, headache, subjective fever, fatigue and body aches for 3-4 days. Shortness of breath, chest pain, vomiting, diarrhea. Patient has had some nausea. no skin rash, neck pain or neck stiffness, leg swelling or pain. of note, patient has had several ER visits for pneumonia treated with outpatient antibiotics. Last visit was in September of 2022 with the patient was treated with Augmentin Related Data Home Medications Medication Instructions Recorded Confirmed albuterol sulfate 2.5 mg/3 mL 2.5 mg inhalation Q4-6H PRN 01/24/20 11/06/22 (0.083 %) solution for nebulization Shortness Of Breath citalopram 20 mg tablet 20 mg PO DAILY 01/24/20 11/06/22 elviteg 150 mg-cob 150 mg-emtricit 1 tab PO QPM 01/24/20 11/06/22 200 mg-tenofo alafenam 10 mg tablet (Genvoya) gabapentin 300 mg tablet 300 mg PO TID 01/24/20 11/06/22 lisinopril 5 mg tablet 5 mg PO DAILY 01/24/20 11/06/22 rosuvastatin 20 mg tablet (Crestor) 20 mg PO DAILY 01/24/20 11/06/22 tizanidine 4 mg capsule 4 mg PO Q8H PRN Muscle Spasm 01/24/20 11/06/22 sertraline 100 mg tablet 100 mg PO DAILY 09/23/21 11/06/22 zolpidem 10 mg tablet 10 mg PO BEDTIME 09/23/21 11/06/22 diclofenac sodium 75 mg 75 mg PO BID 09/09/22 11/06/22 tablet,delayed release meclizine 12.5 mg tablet 12.5 mg PO QID PRN 09/09/22 11/06/22 Previous Rx's Medication Instructions Recorded ondansetron 4 mg disintegrating 4 mg PO Q6-8H PRN nausea and 10/01/21 tablet vomiting #14 tabs simethicone 180 mg capsule 180 mg PO QID 30 days #120 caps 05/21/22 hydrocortisone 2.5 % topical cream 1 appl TN BID hemorrhoids #30 grams 08/17/22 with perineal applicator (Proctosol HC) linaclotide 145 mcg capsule 145 mcg PO QAM #30 caps 08/17/22 (Linzess) nitrofurantoin 100 mg PO BID #20 caps 11/06/22 monohydrate/macrocrystals 100 mg capsule (Macrobid) furosemide 20 mg tablet (Lasix) 20 mg PO DAILY 30 days #30 tabs 12/02/22 fluticasone furoate 200 1 inh inhalation DAILY 30 days #60 01/08/23 mcg-vilanterol 25 mcg/dose ea inhalation powder (Breo Ellipta) umeclidinium 62.5 mcg/actuation 1 inh inhalation DAILY 30 days #30 01/08/23 blister powder for inhalation ea (Incruse Ellipta) albuterol sulfate 2.5 mg/0.5 mL 5 mg inhalation QID PRN shortness 01/16/23 solution for nebulization of breath or wheezing #30 ea amoxicillin 875 mg-potassium 1 tab PO BID #14 tabs 01/16/23 clavulanate 125 mg tablet benzonatate 200 mg capsule 200 mg PO TID PRN cough #20 caps 01/16/23 prednisone 20 mg tablet 40 mg (2 x 20 mg) PO DAILY #10 tabs 01/16/23 Allergies Allergy/AdvReac Type Severity Reaction Status Date / Time shellfish derived Allergy Intermediate HIVES, N/V Verified 01/01/23 08:57 Review of Systems Review of Systems: Yes all other systems are reviewed and are negative Constitutional: Constitutional: Reports no additional constitutional complaints, Reports body ache(s), Reports chills, Reports fatigue, Reports fever(s), Reports headache(s) and Denies weakness Eyes: Eyes: Reports no additional eye complaints and Denies change in vision ENT: Reports system reviewed and no additional complaints, except as documented, Denies dizziness, Reports headache(s), Denies nasal congestion, Denies nasal discharge and Denies neck pain Cardiovascular: Cardiovascular: Reports no additional cardiovascular complaints, Denies chest pain, Denies leg edema and Denies dyspnea Respiratory: Respiratory: Reports no additional respiratory complaints, Reports cough and Denies dyspnea Gastrointestinal: Gastrointestinal: Reports no additional gastrointestinal complaints, Denies abdominal pain, Denies diarrhea, Reports nausea and Denies vomiting Genitourinary: Genitourinary: Reports no additional female genitourinary complaints and Denies urinary incontinence Musculoskeletal: Musculoskeletal: Reports no additional musculoskeletal complaints, Denies back pain, Denies arthralgias, Denies joint swelling, Denies neck pain, Denies numbness and Denies tingling Integumentary/Breasts: Skin/Breast: Reports system reviewed and no additional complaints, except as docu and Denies rash Neurologic: Reports system reviewed and no additional complaints, except as documented, Denies Abnormal speech present, Denies dizziness, Reports headache(s), Denies numbness, Denies tingling and Denies weakness Endocrine: Endocrine: Reports fatigue PMFSH Past Medical History Attestation statement: The following information was validated with the patient. 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 HIV (human immunodeficiency virus infection) Arthritis History of blood transfusion Anemia Hx of renal calculi Difficulty swallowing GERD (gastroesophageal reflux disease) Hepatitis Depression Sleep apnea Asthma Elevated cholesterol HTN (hypertension) Surgical History Hx of dilation and curettage Hx of section Hx of reduction mammoplasty Hx of tubal ligation Hx of cholecystectomy Hx of colonoscopy Family History Family History Mother Breast cancer Father Heart problem Sister Bone cancer Family/Other Diabetes Social History Social History Alcohol intake: current Alcohol intake frequency: does not drink Alcohol type: wine Patient Tobacco Use Status: Former Tobacco user Smoked in Last 30 Days: No Second Hand Smoke Exposure: No Use of substances other than those prescribed or required for medical reasons: No Advance Directives: No Advance Directives Information Provided: No Patient : No Sexual orientation: Straight/Heterosexual Gender identity: Female Physical Exam ED Vital Signs: Vital Signs - 24 hr 01/16/23 12:14 01/16/23 12:37 01/16/23 13:25 Temperature 97.9 F Pulse Rate 74 72 Respiratory Rate 18 16 Blood Pressure 127/97 H Pulse Oximetry 99 99 Oxygen Delivery Method Room Air Room Air 01/16/23 14:23 Temperature Pulse Rate Respiratory Rate Blood Pressure Pulse Oximetry 98 Oxygen Delivery Method Room Air BMI result Body Mass Index 31.9 Const General: cooperative, healthy appearing, comfortable and no acute distress Orientation/consciousness: patient oriented x3 Limitations: no limitations HENMT Head: Yes normal to inspection Ears: hearing grossly normal bilaterally and TM's normal bilaterally General nose exam: Normal external nose present Face and sinus: Yes normal facial exam Mouth: Normal oral and palatal mucosa present Throat: Yes posterior oropharynx normal, Yes tonsils normal and Yes uvula midline Eyes General: appearance normal, both eyes and all related structures Pupils: Equal, round and reactive pupils present Neck Neck: Yes normal visual inspection, Yes full ROM, Yes no lymphadenopathy and Yes no meningeal signs Chest Chest palpation & inspection: normal inspection of the chest Resp Other: mild expiratory wheeze Effort & Inspection: normal respiratory effort Cardio Rate: regular rate Rhythm: regular rhythm Peripheral pulses: Peripheral pulses 2+ throughout GI Inspection: Yes normal to inspection Palpation (GI): Soft to palpation and nontender Auscultation: normal bowel sounds Back/Spine/Pelvis Thoracic/Lumbar Spine: thoracic and lumbar spine normal to inspection Skin General skin exam: no rashes or lesions noted Neuro General: patient oriented x3, no meningeal signs, no focal motor deficits and normal sensation to monofilament Cranial nerves: Yes Equal, round and reactive pupils present Cognition (Neuro): normal cognition Speech: No Abnormal speech present Gait exam (Neuro): Normal gait present Motor exam (neuro): 5/5 motor strength present throughout Extrem General: Yes normal to inspection Course Course Course Narrative: RME- 62 year old female presents for evaluation of fevers, congestion, weakness. Plan for flu and covid swab Reevaluation(s) Reevaluation #1: 1430- x-ray is concerning for left lower lobe pneumonia. Lab work is unremarkable. COVID and flu testing are negative. Ambulatory oxygen saturation greater than 98%. Patient is nontoxic, afebrile. Plan for discharge home. reviewed worrisome signs and symptoms of when to return to the emergency room. Comfortable plan for discharge home. Medications Administered Discontinued Medications Generic Name Dose Route Start Last Admin Trade Name Angelina PRN Reason Stop Dose Admin Acetaminophen 975 mg 01/16/23 12:37 01/16/23 12:41 Acetaminophen 325 Mg Tablet PO 01/16/23 12:38 975 mg ONCE ONE Administration Albuterol/Ipratropium 3 ml 01/16/23 12:37 01/16/23 13:24 Albuterol/Iprat 2.5/0.5mg 3 Ml Ampul.Neb INHALE 01/16/23 12:38 3 ml ONCE ONE Administration Medical Decision Making Medical Decision Making [facility] Narrative: 62-year-old Malawian-speaking female with past medical history of kidney stones, HIV on HAART therapy., hypertension, anemia, osteoarthritis, fibromyalgia, GERD, varicose veins, hyperlipidemia, depression, hepatitis, asthma, obstructive sleep apnea here with complaints of cough, headache, subjective fever, fatigue and body aches for 3-4 days. Shortness of breath, chest pain, vomiting, diarrhea. Patient has had some nausea. no skin rash, neck pain or neck stiffness, leg swelling or pain. of note, patient has had several ER visits for pneumonia treated with outpatient antibiotics. Last visit was in September of 2022 with the patient was treated with Augmentin On exam patient has mild expiratory wheezing. Exam otherwise benign. Will check labs, chest x-ray, COVID and flu testing. Patient will receive Tylenol for pain and a DuoNeb Differential Diagnosis Differential Diagnoses: The differential diagnosis associated with the presentation includes viral syndrome, influenza a, pneumonia Admission/Observation Consideration of admission/observation: Escalation of care including admission/observation considered Ambulatory oxygen saturation greater than 98%. Patient is nontoxic, afebrile. Lab Data [facility] Lab Attestation statement: I reviewed the patient's lab results. Flu/covid testing negative 01/16/23 12:44 01/16/23 12:45 Labs: Lab Results 01/16/23 01/16/23 01/16/23 Range/Units 12:19 12:44 12:45 WBC 6.2 (4.8-10.8) X10*3/uL RBC 4.30 (4.20-5.50) X10*6/uL Hgb 12.3 (12.0-16.0) g/dl Hct 38.3 (37.0-47.0) % MCV 89.1 (80.0-98.0) fL MCH 28.6 (27.0-33.0) pg MCHC 32.1 (31.0-35.0) g/dl RDW 14.0 (11.0-16.0) % Plt Count 189 D (160-400) X10*3/uL MPV 11.0 (9.4-12.3) fL Immature Gran % (Auto) 0.2 (0.0-0.4) % Neut % (Auto) 73.3 H (45-73) % Lymph % (Auto) 16.3 L (20-40) % Luna % (Auto) 8.1 (2-11) % Eos % (Auto) 1.8 (0-4) % Baso % (Auto) 0.3 (0-2) % Lymph # (Auto) 1.0 L (1.2-4.9) X10*3/uL Luna # (Auto) 0.5 (0.1-1.2) X10*3/uL Eos # (Auto) 0.1 (0.0-0.4) X10*3/uL Baso # (Auto) 0.0 (0.0-0.2) X10*3/uL Abs Immat Gran (auto) 0.01 (0.00-0.03) X10*3/uL Absolute Neuts (auto) 4.6 (2.0-8.3) x10*3/uL Absolute Nucleated RBC 0.000 (0.0-0.012) X10*3/uL Nucleated RBC % (auto) 0.0 (0.0-0.2) /100WBC Sodium 141 (135-145) mmol/L Potassium 3.8 (3.3-5.1) mmol/L Chloride 106 (96-108) mmol/L Carbon Dioxide 24 (22-29) mmol/L Anion Gap 15 (12-20) BUN 18 H (9-16) mg/dL Creatinine 0.84 (0.5-1.4) mg/dL Estim Creat Clear Calc 71.1 Estimated GFR > 60 Random Glucose 79 (60-115) mg/dL Calcium 9.7 (8.4-10.2) mg/dL COVID-19 (JONH) Negative (Negative) COVID-19 Clin Com See Note Influenza Type A (STEVEN) Negative (Negative) Influenza Type B (STEVEN) Negative (Negative) Influenza A & B Note See Note Independent Interpretation I performed an independent interpretation of an: Plain X-Ray Interpretation: I independently reviewed the x-ray and agree with the radiology report Radiology Impression Discussion of test interpretation with radiology: I have reviewed the radiologist's reading. Radiologist Impression: [id number] [place] [address] XRay Report Signed Patient: America Bower MR#: [id number] : 1960 Acct:[id number] Age/Sex: 62 / F ADM Date: 01/16/23 Loc: .ED Attending Dr: Ordering Physician: Colleen Zhang NP Date of Service: 01/16/23 Procedure(s): XR chest 2V Accession Number(s): [id number] cc: Veronica Rebolledo MD; Colleen Zhang NP~ EXAMINATION: XR CHEST CLINICAL INFORMATION: Cough and fever COMPARISON: CT chest 11/17/2022 TECHNIQUE: 2 views of the chest were obtained. FINDINGS: The lungs are well-expanded with bandlike atelectasis in lingula. Rest of the lungs are clear. Heart size and pulmonary vascularity is normal. No gross bony abnormality seen. XR/XR chest 2V IMPRESSION: Left lingular platelike atelectasis. External Record Review External record reviewed: Outpatient record Prescription Management I considered prescription management with: Antibiotic Chronic Conditions Patient?s care impacted by: Other (hiv) Discharge Plan Discharge Clinical Impression: Pneumonia Patient Disposition: Home, Self-Care Instructions: Community Acquired Pneumonia (ED) Additional Instructions: COVID and flu testing are negative. Her chest x-ray shows that you have a small area of pneumonia and your left lower lung. Please continue your home medications. Use your inhaler and nebulizer as needed. Take Motrin or Tylenol if able as needed for pain or fever. Return for worsening symptoms Las pruebas de COVID y gripe son negativas. Stock radiograf?a de t?rax muestra que tiene astrid shun?a ?tania de neumon?a y la parte inferior izquierda del pulm?n. Por favor contin?e con gloria medicamentos en casa. Utilice stock inhalador y nebulizador seg?n sea necesario. [place] Motrin o Tylenol, si puede, seg?n sea necesario para el dolor o la fiebre. Regresar si los s?ntomas empeoran Prescriptions: New amoxicillin-pot clavulanate 875-125 mg tablet 1 tab PO BID Qty: 14 0RF benzonatate 200 mg capsule 200 mg PO TID PRN (Reason: cough) Qty: 20 0RF prednisone 20 mg tablet 40 mg PO DAILY Qty: 10 0RF albuterol sulfate 2.5 mg/0.5 mL solution for nebulization 5 mg inhalation QID PRN (Reason: shortness of breath or wheezing) Qty: 30 0RF No Action hydrocortisone [Proctosol HC] 2.5 % cream with perineal applicator 1 appl TN BID Qty: 30 6RF Rx Instructions: BE SURE TO INCLUDE RECTAL APPICATOR!! Linzess 145 mcg capsule 145 mcg PO QAM Qty: 30 1RF fluticasone furoate-vilanterol [Breo Ellipta] 200-25 mcg/dose blister with device 1 inh inhalation DAILY 30 Days Qty: 60 6RF Incruse Ellipta 62.5 mcg/actuation blister with device 1 inh inhalation DAILY 30 Days Qty: 30 6RF albuterol sulfate 2.5 mg /3 mL (0.083 %) Solution For Nebulization 2.5 mg INHALATION Q4-6H PRN (Reason: Shortness Of Breath) citalopram 20 mg Tablet 20 mg PO DAILY lisinopril 5 mg Tablet 5 mg PO DAILY rosuvastatin [Crestor] 20 mg Tablet 20 mg PO DAILY gabapentin 300 mg Tablet 300 mg PO TID tizanidine 4 mg Capsule 4 mg PO Q8H PRN (Reason: Muscle Spasm) Genvoya [phone] mg Tablet 1 tab PO QPM ondansetron 4 mg tablet,disintegrating 4 mg PO Q6-8H PRN (Reason: nausea and vomiting) Qty: 14 0RF zolpidem 10 mg tablet 10 mg PO BEDTIME sertraline 100 mg tablet 100 mg PO DAILY simethicone 180 mg capsule 180 mg PO QID 30 Days Qty: 120 6RF Rx Instructions: after meals nitrofurantoin monohyd/m-cryst [Macrobid] 100 mg capsule 100 mg PO BID Qty: 20 0RF Rx Instructions: must administer with a meal/food diclofenac sodium 75 mg tablet,delayed release (DR/EC) 75 mg PO BID meclizine 12.5 mg tablet 12.5 mg PO QID PRN furosemide [Lasix] 20 mg tablet 20 mg PO DAILY 30 Days Qty: 30 6RF Referrals: Veronica Rebolledo MD [Primary Care Provider] - 1 week Interventions: ED Discharge Assessment Last Done: 01/16/23 14:31 Discharge Date/Time: 01/16/23 14:31 Print Language: Malawian
[2023-01-16 12:37] VITALS: O2SAT 99
[2023-01-16] MEDS: Acetaminophen 325 MG TABLET 975 MG PO (12:41)
[2023-01-16 12:49] LABS: IDNOW Serial# 08D9AD1C
[2023-01-16 12:50] LABS: COVID-19 Test Negative (Negative); IDNOW Serial# BCCEAD1C; Influenza A Negative (Negative); Influenza B2 Negative (Negative)
[2023-01-16 12:56] LABS: MANUAL DIFF FLAG NO
[2023-01-16 12:59] LABS: Basophils Percent Auto 0.3 % (0-2); Eosinophils Absolute Auto 0.1 X10*3/uL (0.0-0.4); Eosinophils Percent Auto 1.8 % (0-4); Hematocrit 38.3 % (37.0-47.0); Hemoglobin 12.3 g/dl (12.0-16.0); Imm Gran Abs Auto 0.01 X10*3/uL (0.00-0.03); Imm Gran Pct Auto 0.2 % (0.0-0.4); Lymphocytes Percent Auto 16.3 % (20-40); Mean Corpuscular HGB Conc 32.1 g/dl (31.0-35.0); Mean Corpuscular Hemoglobin 28.6 pg (27.0-33.0); Mean Corpuscular Volume 89.1 fL (80.0-98.0); Monocytes Absolute Auto 0.5 X10*3/uL (0.1-1.2); Monocytes Percent Auto 8.1 % (2-11); Neutrophils Absolute Auto 4.6 x10*3/uL (2.0-8.3); Neutrophils Percent Auto 73.3 % (45-73); Platelet Count 189 X10*3/uL (160-400); White Blood Count 6.2 X10*3/uL (4.8-10.8)
[2023-01-16 13:09] LABS: Anion Gap 15 (12-20); Blood Urea Nitrogen 18 mg/dL (9-16); Calcium 9.7 mg/dL (8.4-10.2); Carbon Dioxide 24 mmol/L (22-29); Chloride 106 mmol/L (96-108); Creatinine Clr Calc Pharmacy 71.1; Estimated Glomerular Filt Rate > 60; Glucose Random 79 mg/dL (60-115); Potassium 3.8 mmol/L (3.3-5.1); Sodium 141 mmol/L (135-145)
[2023-01-16] MEDS: Albuterol/Iprat 2.5/0.5MG 3 ML AMPUL.NEB INHALE (13:24)
[2023-01-16 13:25] VITALS: PULSE 72; RESP 16; O2SAT 97
[2023-01-16 14:23] VITALS: O2SAT 98
== END 2023-01-16 14:31 | disposition home or self-care (01) ==
PROVIDERS: Nurse Practitioner Family; Physician Assistant; Emergency Provider Emergency Medicine; PCP Internal Medicine
DX: J18.9 Pneumonia, unspecified organism (principal); R50.9 Fever, unspecified; Z20.822 Contact with and (suspected) exposure to COVID-19; B20 Human immunodeficiency virus [HIV] disease; I10 Essential (primary) hypertension; E78.5 Hyperlipidemia, unspecified; Z79.899 Other long term (current) drug therapy
CPT/HCPCS: 36415; 71046; 80048; 85025; 87502; 87635; 94640; 99284; 99285

== ENCOUNTER 2023-02-02 13:42 | Outpatient (REF) | payer MEDICAID, SELFPAY | END 2023-02-02 13:43 | disposition home or self-care (01) | LOC: HO.LNP 13:42 | PROVIDERS: Visit Provider Internal Medicine | DX: H81.12 Benign paroxysmal vertigo, left ear (principal); N30.00 Acute cystitis without hematuria | CPT/HCPCS: 87086; 87088; 87186 ==

== ENCOUNTER 2023-02-03 11:11 | Outpatient (REF) | payer MEDICAID, SELFPAY | END 2023-02-03 11:12 | disposition home or self-care (01) | LOC: HO.MAMMO 11:11 | PROVIDERS: PCP Internal Medicine; Visit Provider Internal Medicine | DX: Z12.31 Encounter for screening mammogram for malignant neoplasm of breast (principal) | CPT/HCPCS: 77063; 77067 ==

== ENCOUNTER → 2023-02-03 11:45 | Outpatient (BNV) | payer MEDICAID, SELFPAY | PROVIDERS: PCP Internal Medicine; Visit Provider Radiology Diagnostic Radiology | DX: Z12.31 Encounter for screening mammogram for malignant neoplasm of breast (principal) | CPT/HCPCS: 77063; 77067 ==

== ENCOUNTER 2023-02-10 08:32 | Outpatient (AMB) | payer MEDICAID, SELFPAY ==
--- NOTE | 2023-02-10 08:59 | A.OFFVIS_ITS ---
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 Patient has completed her CT chest that does not demonstrate significant interstitial disease. Her pulmonary function test is still pending. Her 2D echocardiogram that was essentially normal. she continues on Lasix with reasonable control of dyspnea and lower extremity edema. She recently been evaluated for AR in told that she had pneumonia, though it appears she had viral bronchitis. 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 HIV (human immunodeficiency virus infection) Arthritis History of blood transfusion Anemia Hx of renal calculi Difficulty swallowing GERD (gastroesophageal reflux disease) Hepatitis Depression Sleep apnea Asthma Elevated cholesterol HTN (hypertension) Surgical History Hx of dilation and curettage Hx of section Hx of reduction mammoplasty Hx of tubal ligation Hx of cholecystectomy Hx of colonoscopy Family History Mother Breast cancer Father Heart problem Sister Bone cancer Family/Other Diabetes Social History (Updated 02/10/23 @ 09:05 by EMILY Young) Alcohol intake: current Alcohol intake frequency: does not drink Alcohol type: wine Patient Tobacco Use Status: Former Tobacco user Tobacco use type: Cigarette Cigarette Packs Per Day: 2 Years Smoked: 40+ Second Hand Smoke Exposure: No Sexual orientation: Straight/Heterosexual Gender identity: Female Female Reproductive History Menstrual Age of Menarche: 12 Review of Systems Const Denies daytime sleepiness, Denies excessive sweating, Denies fatigue, Denies fever(s), Denies lethargy, Denies malaise, Denies night sweats, Denies snoring and Denies weight loss Eyes Denies blurry vision and Denies itchy eyes ENT Denies nasal congestion, Denies post nasal drip, Denies sinus pain, Denies sinus pressure and Denies other ( Thrush) Card Denies chest pain, Denies pedal edema, Denies dyspnea, Denies orthopnea and Denies paroxysmal nocturnal dyspnea Resp Denies cough, Denies hemoptysis, Denies excessive phlegm production, Denies dyspnea, Denies snoring and Denies wheezing GI Denies abdominal pain and Denies heartburn Musc Denies myalgias, Denies arthralgias and Denies joint swelling Skin/Breast Denies rash Neuro Denies memory loss and Denies seizure-like activity Psych Denies abnormal sleep pattern, Denies anxiety and Denies memory loss Endo Denies excessive sweating, Denies fatigue and Denies heat intolerance Flaquito/Lymph Denies easy bruising Aller/Immun Denies itchy eyes, Denies seasonal rhinorrhea and Denies wheezing Physical Exam Vital Signs: Last Vital Signs Pulse 68 02/10/23 09:00 BP 122/72 02/10/23 09:00 Pulse Ox 96 02/10/23 09:00 Oxygen Delivery Method Room Air 02/10/23 09:00 BMI result Body Mass Index 31.8 Const General: no acute distress and alert Nutritional Appearance: not obese Orientation/consciousness: Other orientation findings ( oriented) HEENT Head: Yes atraumatic Eyes General: appearance normal, both eyes and all related structures Sclerae: sclerae normal EOM: EOMs intact bilaterally Neck Neck: Yes supple Lymphatic: no lymphadenopathy noted Resp Effort & Inspection: normal respiratory effort and no use of accessory muscles Auscultation: clear to auscultation bilaterally Cardio Rate: regular rate Rhythm: regular rhythm Heart sounds: no gallops, no murmurs and no rubs Skin General skin exam: other ( warm) Extrem General: No clubbing, No cyanosis and No edema Assessment & Plan Assessment & Plan (1) Reactive airway disease: Code(s): J45.909 - Unspecified asthma, uncomplicated Plan: well controlled on current regimen of Breo, Incruse, and albuterol MDI. Continue current regimen. (2) Encounter for preoperative pulmonary examination: Code(s): Z01.811 - Encounter for preprocedural respiratory examination Plan: At this time patient is at low risk for pulmonary preoperative complications for the proposed cystoscopy either under general anesthesia, or under monitored anesthesia care. Coding Level of Care Code Est Pt Level 4 (11573) Diagnoses Reactive airway disease J45.909 Encounter for preoperative pulmonary examination Z01.811
[2023-02-10 09:00] VITALS: BP 122/72; PULSE 68; O2SAT 96; BMI 31.8
== END 2023-02-10 09:22 | disposition home or self-care (01) ==
PROVIDERS: PCP Internal Medicine; Visit Provider Internal Medicine Pulmonary Disease
DX: J45.909 Unspecified asthma, uncomplicated (principal); Z01.811 Encounter for preprocedural respiratory examination
CPT/HCPCS: 99214

== ENCOUNTER → 2023-02-10 08:32 | Outpatient (BNVA) | payer MEDICAID, SELFPAY | PROVIDERS: PCP Internal Medicine; Visit Provider Internal Medicine Pulmonary Disease | DX: Z01.811 Encounter for preprocedural respiratory examination (principal); J45.909 Unspecified asthma, uncomplicated | CPT/HCPCS: 99212 ==

== ENCOUNTER 2023-03-03 13:57 | Outpatient (AMB) | payer MEDICAID, SELFPAY ==
--- NOTE | 2023-03-03 14:07 | AM.OFFVISNUR ---
Intake Intake Visit Reasons: PVR Allergies shellfish derived Allergy (Intermediate, Verified 02/10/23 09:03) HIVES, N/V Nursing Note pt presents to office for PVR, UA- UA positive, bladder scan 40 mls, reviewed with Dr Franks- script for macrobid 100 mg BID x 7 days sent, pt aware if final results show macrobid not sensitive will be called with new script. Office Procedures Post Void Residual Post Residual Void Post Void Residual (PVR): 40 [id number] Void Residual by ultrasound Results AMB Urinalysis, Automated UA Leukoctes 500 Og/uL Last Edit by Monalisa Garcia RN on 03/03/23 14:25 UA Nitrite Positive Last Edit by Monalisa Garcia RN on 03/03/23 14:25 UA Urobilinogen 0 mg/dL Last Edit by Monalisa Garcia RN on 03/03/23 14:25 UA Protein 15 mg/dL Last Edit by Monalisa Garcia RN on 03/03/23 14:25 UA pH 6.0 Last Edit by Monalisa Garcia RN on 03/03/23 14:25 UA Blood 25 [place]/uL Last Edit by Monalisa Garcia RN on 03/03/23 14:25 UA Specific Cecil 1.015 Last Edit by Monalisa Garcia RN on 03/03/23 14:25 UA Ketone Negative Last Edit by Monalisa Garcia RN on 03/03/23 14:25 UA Bilirubin 0 mg/dL Last Edit by Monalisa Garcia RN on 03/03/23 14:25 UA Glucose 0 mg/dL Last Edit by Monalisa Garcia RN on 03/03/23 14:25 Coding CPT Codes Post Residual Void - PVR CPT Code: 56837-[id number] Void Residual by ultrasound ([id number]) Assessment & Plan Assessment & Plan Orders: Orders AMB Post Void Residual by ultrasound Today R10.2 - Pelvic and perineal pain, R31.9 - Hematuria, unspecified AMB Urinalysis Automated Today R10.2 - Pelvic and perineal pain, R31.9 - Hematuria, unspecified, R39.9 - Unspecified symptoms and signs involving the genitourinary system
== END 2023-03-03 14:33 | disposition home or self-care (01) ==
PROVIDERS: PCP Internal Medicine; Visit Provider Urology
DX: R10.2 Pelvic and perineal pain (principal); R39.9 Unspecified symptoms and signs involving the genitourinary system; R31.9 Hematuria, unspecified

== ENCOUNTER 2023-03-03 13:57 | Outpatient (REF) | payer MEDICAID, SELFPAY | END 2023-03-03 13:58 | disposition home or self-care (01) | LOC: HO.LNP 13:57 | PROVIDERS: PCP Internal Medicine; Visit Provider Urology | DX: R31.9 Hematuria, unspecified (principal); R10.2 Pelvic and perineal pain; R39.9 Unspecified symptoms and signs involving the genitourinary system | CPT/HCPCS: 51798; 81003; 87086; 87088; 87186 ==

== ENCOUNTER 2023-03-30 08:56 | Day surgery (SDC) | payer MEDICAID, SELFPAY ==
[2023-03-26 10:30] VITALS: BMI 33.5
--- NOTE | 2023-03-29 10:51 | P.CONAN_ITS ---
Documented by User: Tonja Rajan NP 03/29/23 10:54 HPI - Anesthesia Eval Consult details Narrative: 63yo F for Cystoscopy Hydrodistention of Bladder Pulmo cleared Cardiac cleared (Pending echo and stress, but ok to proceed without testing results) [facility] Active Problems Active Problems: All Active Problems (Updated 12/24/20 @ 07:52 by AARON Jackson) Encounter for preoperative pulmonary examination (Acute) Reactive airway disease (Acute) Dyspnea on exertion (Acute) Urinary tract infection symptoms (Acute) Pelvic pain (Acute) Bilateral nephrolithiasis (Acute) Uterine fibroid (Acute) H/O recurrent pneumonia (Acute) Personal history of tobacco use (Acute) Interstitial lung disease (Acute) Hematuria (Acute) Fibromyalgia (Acute) 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) Hepatitis (Acute) Depression (Acute) Asthma (Acute) Arthritis (Acute) Anemia (Acute) Elevated cholesterol (Acute) GERD (gastroesophageal reflux disease) (Acute) Sleep apnea (Acute) HTN (hypertension) (Acute) HIV (human immunodeficiency virus infection) (Acute) Emphysema lung (Acute) Abdominal bloating (Acute) Varicose veins of right lower extremity with inflammation (Acute) Osteoarthritis of left knee (Acute) Serrated polyp of colon (Acute) Chronic idiopathic constipation (Acute) Primary osteoarthritis of hands, bilateral (Acute) Hx of colonoscopy (Acute) Past Medical History Medical History Uterine fibroid Hematuria Fibromyalgia 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 HIV (human immunodeficiency virus infection) Arthritis History of blood transfusion Anemia Hx of renal calculi Difficulty swallowing GERD (gastroesophageal reflux disease) Hepatitis Depression Sleep apnea Asthma Elevated cholesterol HTN (hypertension) Family History Family History Mother Breast cancer Father Heart problem Sister Bone cancer Family/Other Diabetes Family history of problems with anesthesia: No Surgical History Surgical History Hx of dilation and curettage Hx of section Hx of reduction mammoplasty Hx of tubal ligation Hx of cholecystectomy Hx of colonoscopy History of Problems with Anesthesia: No Social History Social History Alcohol intake: current Alcohol intake frequency: does not drink Alcohol type: wine Patient Tobacco Use Status: Former Tobacco user Tobacco use type: Cigarette Cigarette Packs Per Day: 2 Years Smoked: 40+ Second Hand Smoke Exposure: No Have you been hit, kicked, punched, or otherwise hurt by someone within the past year? If so, by whom?: No Are you DNR?: No Advance Directives: No Advance Directives Information Provided: Yes Recently lost weight without trying: No Nutrition Risks: No Nutritional Risk Patient : No Sexual orientation: Straight/Heterosexual Gender identity: Female Meds Allergies Allergy/AdvReac Type Severity Reaction Status Date / Time shellfish derived Allergy Intermediate HIVES, N/V Verified 02/10/23 09:03 Home Medications Medication Instructions Recorded Confirmed Last Taken Type albuterol sulfate 2.5 mg/3 mL 2.5 mg inhalation Q4-6H PRN 01/24/20 03/26/23 Unknown History (0.083 %) solution for nebulization Shortness Of Breath elviteg 150 mg-cob 150 mg-emtricit 1 tab PO QPM 01/24/20 03/26/23 Unknown History 200 mg-tenofo alafenam 10 mg tablet (Genvoya) rosuvastatin 20 mg tablet (Crestor) 20 mg PO DAILY 01/24/20 03/26/23 Unknown History sertraline 100 mg tablet 100 mg PO DAILY 09/23/21 03/26/23 Unknown History zolpidem 10 mg tablet 10 mg PO BEDTIME 09/23/21 03/26/23 Unknown History diclofenac sodium 75 mg 75 mg PO BID 09/09/22 03/26/23 Unknown History tablet,delayed release meclizine 12.5 mg tablet 12.5 mg PO QID PRN Vertigo 09/09/22 03/26/23 Unknown History omeprazole 20 mg capsule,delayed 20 mg PO DAILY 03/26/23 03/26/23 Unknown History release potassium chloride 10 mEq 10 meq PO BID 03/26/23 03/26/23 Unknown History tablet,extended release Exam Height,Weight and Vital Signs: Height 5 ft 3 in Weight 85.729 kg Pertinent Lab Results Pertinent Lab Results: Laboratory Tests 01/16/23 01/16/23 01/16/23 12:44 12:44 12:45 WBC 6.2 Hgb 12.3 Hct 38.3 Plt Count 189 D Sodium 141 Potassium 3.8 Chloride 106 Carbon Dioxide BUN 18 H Creatinine 01/16/23 12:45 WBC Hgb Hct Plt Count Sodium Potassium Chloride Carbon Dioxide 24 BUN Creatinine 0.84 Narrative Narrative: ECHO 12/2022 Conclusions: - The left ventricular systolic function is normal. The calculated ejection fraction is 62% by biplane method. - No obvious valvular pathology seen on this study. EKG 09/2022 Vent. 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 HIV (human immunodeficiency virus infection) Arthritis History of blood transfusion Anemia Hx of renal calculi Difficulty swallowing GERD (gastroesophageal reflux disease) Hepatitis Depression Sleep apnea Asthma Elevated cholesterol HTN (hypertension) Family History Family History Mother Breast cancer Father Heart problem Sister Bone cancer Family/Other Diabetes Surgical History Surgical History Hx of dilation and curettage Hx of section Hx of reduction mammoplasty Hx of tubal ligation Hx of cholecystectomy Hx of colonoscopy Social History Social History Alcohol intake: current Alcohol intake frequency: does not drink Alcohol type: wine Patient Tobacco Use Status: Former Tobacco user Tobacco use type: Cigarette Cigarette Packs Per Day: 2 Years Smoked: 40+ Second Hand Smoke Exposure: No Have you been hit, kicked, punched, or otherwise hurt by someone within the past year? If so, by whom?: No Are you DNR?: No Advance Directives: No Advance Directives Information Provided: Yes Recently lost weight without trying: No Nutrition Risks: No Nutritional Risk Patient : No Sexual orientation: Straight/Heterosexual Gender identity: Female Meds Allergies Allergy/AdvReac Type Severity Reaction Status Date / Time shellfish derived Allergy Intermediate HIVES, N/V Verified 02/10/23 09:03 Home Medications Medication Instructions Recorded Confirmed Last Taken Type albuterol sulfate 2.5 mg/3 mL 2.5 mg inhalation Q4-6H PRN 01/24/20 03/26/23 Unknown History (0.083 %) solution for nebulization Shortness Of Breath elviteg 150 mg-cob 150 mg-emtricit 1 tab PO QPM 01/24/20 03/26/23 Unknown History 200 mg-tenofo alafenam 10 mg tablet (Genvoya) rosuvastatin 20 mg tablet (Crestor) 20 mg PO DAILY 01/24/20 03/26/23 Unknown History sertraline 100 mg tablet 100 mg PO DAILY 09/23/21 03/26/23 Unknown History zolpidem 10 mg tablet 10 mg PO BEDTIME 09/23/21 03/26/23 Unknown History diclofenac sodium 75 mg 75 mg PO BID 09/09/22 03/26/23 Unknown History tablet,delayed release meclizine 12.5 mg tablet 12.5 mg PO QID PRN Vertigo 09/09/22 03/26/23 Unknown History omeprazole 20 mg capsule,delayed 20 mg PO DAILY 03/26/23 03/26/23 Unknown H istory release potassium chloride 10 mEq 10 meq PO BID 03/26/23 03/26/23 Unknown History tablet,extended release Exam Airway Mallampati Class: II TM Dist: >3cm Neck ROM: Full Heart: rrr Lungs: cta Assessment and Plan Assessment Anesthesia Assessment: Anesthesia Plan Discussed and Chart Reviewed Final Anesthetic Review NPO: Yes ASA Class: III Final Preanesthetic Review: No Changes in Pt Med Stat, Meds/Allgs Chart Reviewed, Consent Obtained/Reviewed and Anes Risks/Benef Reviewed Patient Risk: Intermediate Procedure Risk: Intermediate Anesthetic Plan Anesthetic Plan: GA Disposition: Standard PACU
[2023-03-30] VITALS (7 sets, daily range): BP systolic 107–123; BP diastolic 60–75; PULSE 45–55; RESP 16–18; TEMP 36.2–36.7; O2SAT 97–100
[2023-03-30] MEDS: Lactated Ringers 1,000 ML 100 ML IVCONT (10:57)
--- NOTE | 2023-03-30 12:24 | P.OP_ITS ---
Operative Note Operative Note Date of Service: 03/30/23 Narrative: PREOP DIAGNOSIS: Recurrent UTIs, pelvic plain POSTOP DIAGNOSIS: Recurrent UTIs, pelvic pain, cystitis, bladder neck stenosis PROCEDURE: CYSTOSCOPY , dilation bladder neck SURGEON: Cornelia Fields MD ANESTHESIA: General Details of procedure: The patient was brought into the operating room placed on the OR table in supine position. 2 g of Ancef IV. General anesthesia was admi nistered. The patient was repositioned into lithotomy position, prepped and draped in the usual sterile fashion. Time-out was done per protocol. Fourteen Palestinian catheter was used to drain bladder and obtain urine for culture, bladder volume drained [address] 22 fr cystoscope, met with resistance. The bladder neck was dilated from a 14 Palestinian sound gradually up to a 26 Palestinian urethral sound. The 22 Palestinian cystoscope was placed transurethrally into the bladder. The right and left ureteral orifices were visualized. The entire bladder was visualized. There were bullous changes noted globally on the bladder consistent with cystitis follicularis. There were mild to moderate trabeculations noted. Due to the findings of cystitis follicularis; hydrodistention of the bladder was not done. No suspicious bladder lesions seen. The cystoscope was removed. 2% lidocaine urojet was passed transurethrally into the bladder. Bladder instillation of 1% lidocaine 15 mL mixed with 0.5% bupivacaine 15 mL was placed transurethrally into the bladder. The patient was brought out of anesthesia and taken to recovery in stable condition. Complications: None Drains: None
[2023-03-30] MEDS: ondansetron HCL 4 MG/2 ML VIAL IVPUSH (12:27)
[2023-03-30] MEDS: Phenazopyridine HCL 200 MG TABLET PO (12:27)
[2023-03-30] MEDS: oxyCODONE HCl Immed Release 5 MG TABLET PO (12:28)
--- NOTE | 2023-03-30 15:12 | MHC.SHP ---
Pre-Procedural Eval Section A Date of Service: 03/30/23 The patient is an INPATIENT: No The History & Physical has been completed within 30 days and I have reviewed it.: Yes Section B Chief Complaint: Pelvic and perineal pain Details of Present Illness: America is a 63-year-old female HIV positive with recurrent UTIs and lower urinary tract symptoms dysuria pelvic pain Allergies: Allergies Allergy/AdvReac Type Severity Reaction Status Date / Time shellfish derived Allergy Intermediate HIVES, N/V Verified 02/10/23 09:03 Review of Systems Review of Systems Comment: Exam Surgical H&P Exam: Normal: Lungs Plan Diagnosis/Plan: Unchanged I have reviewed the history and physical and performed a pertinent physical examination on my patient. No changes have occurred unless specified. Cystoscopy hydrodistention, possible bladder biopsy. Time Spent With Patient Time: Total time managing care of this patient today ____ minutes.
== END 2023-03-30 13:45 | disposition home or self-care (01) ==
PROVIDERS: PCP Internal Medicine; Visit Provider Urology
PROC: 0T7B7ZZ Dilation of Bladder, Via Natural or Artificial Opening (ICD-10-PCS; CPT 52260; principal; 2023-03-30 11:30)
DX: N30.30 Trigonitis without hematuria (principal); N32.0 Bladder-neck obstruction; R10.2 Pelvic and perineal pain; Z87.440 Personal history of urinary (tract) infections; N20.0 Calculus of kidney; B20 Human immunodeficiency virus [HIV] disease; I10 Essential (primary) hypertension; E78.00 Pure hypercholesterolemia, unspecified; D64.9 Anemia, unspecified; G47.30 Sleep apnea, unspecified; J43.9 Emphysema, unspecified; K75.9 Inflammatory liver disease, unspecified; Z87.01 Personal history of pneumonia (recurrent); Z87.891 Personal history of nicotine dependence
CPT/HCPCS: 52260; 87086; 87088; 87186; J0690; J1100; J1644; J1885; J2405; J2704; J2795; J3010

== ENCOUNTER → 2023-03-30 08:56 | Outpatient (BNV) | payer MEDICAID, SELFPAY | PROVIDERS: PCP Internal Medicine; Visit Provider Urology | DX: N32.0 Bladder-neck obstruction (principal) | CPT/HCPCS: 52281 ==

== ENCOUNTER 2023-04-07 14:13 | Outpatient (REF) | payer MEDICAID, SELFPAY ==
[2023-04-08 11:42] LABS: CT PCR NOT DETECTED (Not Detect.); NG PCR NOT DETECTED (Not Detect.)
[2023-04-08 12:18] LABS: BV Int Neg Control Negative (Negative); BV Int Pos Control Positive (Positive)
== END 2023-04-07 14:14 | disposition home or self-care (01) ==
LOC: HO.LAB 14:13
PROVIDERS: PCP Internal Medicine; Visit Provider Advanced Practice Midwife
DX: R10.2 Pelvic and perineal pain (principal); R35.0 Frequency of micturition; D21.9 Benign neoplasm of connective and other soft tissue, unspecified
CPT/HCPCS: 0353U; 81003; 87086; 87480; 87510; 87660; 99212

== ENCOUNTER 2023-04-07 14:13 | Outpatient (AMB) | payer MEDICAID, SELFPAY ==
--- OUTSIDE RECORDS SUMMARY | 2023-04-07 14:15 | XMS_ITS | Patient Health Record ---
Author Name Unknown Organization Alec Strickland III, MD Address [address] [place] [address] Care Team Providers Care Forestry Instructor Name Role Phone Kesha PRECIADO, [facility] Primary Care Provider Alec Beckwith Unavailable [phone] ALLERGIES Allergen (clinical drug ingredient) Drug/Non Drug Allergy documented on EMR Reaction Allergy Type Onset Date Status Sea Food (uncoded) Unknown Allergy A ctive REASON FOR REFERRAL No Information MEDICATIONS Medication SIG (Take, Route, Frequency, Duration) Notes Start Date End Date Status Ibuprofen 600 MG 1 tablet Orally Thre e times a day Active FML Liquifilm 0.1 % 1 drop into affected eye Ophthalmic Twice a day Active Crestor 20 MG 1 tablet Orally Once a day Active Tamoxifen Citrate 20 MG 1 tablet Orally Once a day Active Advair Diskus 250-50 MCG/DOSE 1 puff Inhalation Twice a day Active Reyataz 300 MG 1 capsule with food Orally Once a day Active Truvada 200-300 MG 1 tablet Orally Once a day Active Albuterol Sulfate (2.5 MG/3ML) 0.083% 3 ml Inhalation Twice a day Active Tamoxifen Citrate 20 1 tablet Orally Onc e a day Active Albuterol Sulfate HFA 108 (90 Base) MCG/ACT 1 puffs as needed Inhalation every 4 hrs Active Ambien 5 MG 1 tablet at bedtime Orally Once a day Active Norvir 100 MG 3 tablets with a hermelindo l Orally Once a day Active Motrin 600 1 tablet Orally Tid by mouth Active Phentermine HCl 37.5 MG 1 tablet Orally Once a day Active Omeprazole 20 MG 1 tablet Orally Once a day Active IMMUNIZATIONS Vaccine Route Administration Date Status Comme nts Influenza Unknown 2013 Administered Pneumococcal Unknown 05/08/2006 Administered Hepatitis A (adult) Unknown 10/18/2006 Administered SOCIAL HISTORY Tobacco Use: Social History Observation Description Date Details (start date - stop date) Former Smoker NA - NA Sex Assigned At : Social History Observation Description Sex Assigned At Unknown Tobacco Use/Smoking Question Answer Notes Patient is a former smoker How long has it been since you last smoked? 5-10 years Additional Findings: Tobacco Non-User Ex-cigaret te smoker Alcohol Screen Question Answer Notes Did you have a drink containing alcohol in the p ast year? No Points 0 Interpretation Negative PROBLEMS Problem Type ICD Code Onset Dates Problem Status W/U Status Risk SNOMED Code Notes Problem Former smoker (Z87.891) Active confirmed 3855504 She has a plan for prevention of relapse in times of stress. I have counseled her about ongoing smoking cessation. Problem Hyperlipidemia (E78.5) Active confirmed 75792010 A fasting lipi d profile is not available and has been requested from primary care. Problem Asthma (J45.909) Active confirmed 01645 700 It is pollen season and she has occasional wheezing. This is controlled with her medications. Problem Hepatitis C (B19.20) Active confirmed 91602638 There is no si gn at this time of ongoing active infection. Problem Anemia (D64.9) Active confirmed 1950813 00 Her hematocrit is 34% with a normal mean cell volume. This is likely the anemia of chronic disease and will be observed. Problem Thrombocytopenia (D69.6) Active confirmed 506241159 Her platelet count is now normal at 174,000. The value will be observed. Problem Human immunodeficiency virus [HIV] disease (B20) Active confirmed 15238716 She has not developed any recent infections or HIV related neoplasms. She is compliant with the recommendations of infectious disease. The viral load is well controlled. Problem Lobular carcinoma in situ of right breast (D05.01) Active confirmed 343560921 There is no sign of recurrent disease. She is due for mammography and a study has been ordered. 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 It was thought to be reactive. Problem Essential hypertension (I10) Active confirmed 68452374 Her bl ood pressure has been normal. She was referred back to primary care for measurement. Problem Depressive disorder, not elsewhere classified (F32.9) Active confirmed 27708237 Her de pression is stable and well controlled and she is compliant with her medication. Problem Obesity (BMI 35.0-39.9 without comorbidity) (E66.01) Active confirmed 044895861 Her body mass index is 29 and I have recommended regular exercise and weight reduction through a diet restricted in calories fat in sodium. She has lost six pounds since her last visit. Problem Sleep apnea (G47.30) Active confirmed 29777751 She has been treated for this and denies any daytime somnolence. No additional therapy is necessary. She says she has been compliant with treatment Problem H/O carpal tunnel syndrome (Z86.69) Active confirmed 188817757 She has mild symptoms of neuropathy in her hands but these are mild and she is conducting all the activities of daily life without impairment. Problem Chronic kidney disease, stage I (N18.1) Active confirmed 430625690 Her most recen t available renal functions are normal. These will be followed carefully. On June 08, 2021. The BUN was 18, creatinine was normal. Problem Hepatitis B (B19.10) Active confirmed 42529269 There is no si gn of ongoing active hepatitis at this time. Encounters Encounter Location Date Provider Diagnosis Alec Strickland III, MD [address] [place] [address] [place] [id number] 06/15/2022 Alec Strickland III, MD [address] [place] [address] [place] [id number] 07/01/2022 Alec Strickland III, MD [address] [place] [address] [place] [id number] 07/06/2022 Alec Strickland PLAN OF TREATMENT Pending Test Test Name Order Date PROFILE, RANDOM (COMPREHENSIVE METABOLIC ) 02/10/2019 CBC w DIFF 02/10/2019 XR CHEST 2 VIEW PA & LAT 02/10/2019 Insurance Providers Payer Name Payer Address Payer Phone Subscriber Number Group Number Insured Name Patient Relationship to Insured Coverage Start Date Coverage End Date MEDICAID [address] [place] [id number] [phone] [id number] [place] Bower Self - patient is the insured MEDICAL (GENERAL) HISTORY Medical History History ICD Code Hypertension 401.9 Sleep apnea 780.57 GERD (gastroesophageal reflux disease) 5 30.81 Hepatitis B 070.30 Hepatitis C 070.70 Hepatosplenomegaly 571.8 Tubular adenoma of colon 211.3 Stage 2 proteinuria Microhematuria 599.72 arthritis Anemia 285.9 Depression 311 Carpal tunnel syndrome, bilateral 354.0 HIV (human immunodeficiency virus infect ion) V08 Other spondylosis, lumbar region 721.3 Depressive disorder, not elsewhere class ified 311 Chronic kidney disease, Stage II (mild) 585.2 Thrombocytopenia, unspecified 287.5 hyperlipidemia asthma obesity lobular carcinoma in situ right breast S eptember 2013 abnormal Pap smear July 2017 RUDI-1 tubular adenoma hepatic flexure August 06 Surgical History Surgery Date(Month/Year) Cholecystectomy Tubal ligation - Left Right and left breast reduction H/O lung biopsy 2001 histopathology of breast tis fco positive for lobular carcinoma in situ right breast 2013-12-21 iliac crest bone marrow biopsy and aspir ate 12/2001 biopsy of cervix colonoscopy, tubular adenoma hepatic fle xure 07/2012
[2023-04-07 14:19] VITALS: BP 116/76; BMI 33.7
--- NOTE | 2023-04-07 14:19 | A.OFFVIS_ITS ---
Intake Vital Signs 04/07/23 14:19 Height 5 ft 3 in Weight 190 lb BMI 33.7 BP 116/76 Intake Visit Reasons: pelvic pain Vice President Of Business Development Required: Yes Vice President Of Business Development Language: Geothermal Operations Engineer Name: Leigh Information Interpreted: non-clinical & clinical Velocity Shooter: Velocity Shooter Present (Leigh) Allergies shellfish derived Allergy (Intermediate, Verified 04/07/23 14:19) HIVES, N/V HPI HPI Comments History of Present Illness Details Patient is here today with complaints of a lower pelvic pain for the last 4 days she reports frequency of urination. Denies any fever, flu-like symptoms, nausea vomiting, diarrhea constipation. She has a history of chronic UTIs, seen by Urology. Had a cystoscopy on 03/30/2023 has had a concern for pain since the procedure was on Pyridium, had E coli cultured on her urine on 03/30/2023, reports she is taking her antibiotic. Currently not sexually active. 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 HIV (human immunodeficiency virus infection) Arthritis History of blood transfusion Anemia Hx of renal calculi Difficulty swallowing GERD (gastroesophageal reflux disease) Hepatitis Depression Sleep apnea Asthma Elevated cholesterol HTN (hypertension) Surgical History Hx of dilation and curettage Hx of section Hx of reduction mammoplasty Hx of tubal ligation Hx of cholecystectomy Hx of colonoscopy Family History Mother Breast cancer Father Heart problem Sister Bone cancer Family/Other Diabetes Social History Alcohol intake: current Alcohol intake frequency: does not drink Alcohol type: wine Patient Tobacco Use Status: Former Tobacco user Tobacco use type: Cigarette Cigarette Packs Per Day: 2 Years Smoked: 40+ Second Hand Smoke Exposure: No Sexual orientation: Straight/Heterosexual Gender identity: Female Female Reproductive History Menstrual Age of Menarche: 12 Review of Systems Const All systems reviewed & are unremarkable except as noted in HPI and below Physical Exam Vital Signs: Last Vital Signs BP 116/76 04/07/23 14:19 BMI result Body Mass Index 33.7 Const General: cooperative, healthy appearing and no acute distress Orientation/consciousness: patient oriented x3 GI Inspection: Yes normal to inspection Palpation (GI): Soft to palpation and Other GI palpation findings present (Nontender) Rectal Exam - Female: visual inspection normal Other: Tender throughout the lower pelvis General: Yes bladder normal to palpation External Female Exam: normal appearance of the urethra Speculum Exam - Vagina: normal appearance of the vagina, normal palpation and normal vaginal discharge Speculum Exam - Cervix: normal appearance of the cervix and normal palpation Bimanual exam- vagina & uterus: normal bimanual exam, normal palpation, uterine size normal, bladder normal to palpation, normal palpation, uterine shape normal and non-tender Bimanual Exam- Adnexa, other: normal adnexae Neuro General: patient oriented x3 Results AMB Urinalysis, Automated UA Leukoctes 1 Og/uL Last Edit by EMILY Mas on 04/07/23 14:50 UA Nitrite Negative Last Edit by EMILY Mas on 04/07/23 14:50 UA Urobilinogen 0 mg/dL Last Edit by Michelle Granados Prashanth on 04/07/23 14:5 0 UA Protein 0.5 mg/dL Last Edit by EMILY Mas on 04/07/23 14:50 UA pH 6.5 Last Edit by EMILY Mas on 04/07/23 14:50 UA Blood 1 [place]/uL Last Edit by EMILY Mas on 04/07/23 14:50 UA Specific [place] 1.015 Last Edit by EMILY Mas on 04/07/23 14:50 UA Ketone Negative Last Edit by EMILY Mas on 04/07/23 14:50 UA Bilirubin 0 mg/dL Last Edit by EMILY Mas on 04/07/23 14:50 UA Glucose 0 mg/dL Last Edit by EMILY Mas on 04/07/23 14:50 Results Reviewed Results Reviewed: Laboratory Last Values Urine pH (Auto) 6.5 04/07/23 14:36 Specific [place] (Auto) 1.015 04/07/23 14:36 Urine Protein (Auto) 0.5 mg/dL 04/07/23 14:36 Glucose (UA)(Auto) 0 mg/dL 04/07/23 14:36 Urine Ketones (Auto) Negative 04/07/23 14:36 Urine Blood (Auto) 1 [place]/uL 04/07/23 14:36 Urine Nitrite (Auto) Negative 04/07/23 14:36 Urine Bilirubin (Auto) 0 mg/dL 04/07/23 14:36 Urine Urobilinogen (Auto) 0 mg/dL 04/07/23 14:36 Leukocyte Esterase (Auto) 1 Og/uL 04/07/23 14:36 Assessment & Plan Assessment & Plan (1) Pelvic pain: Code(s): R10.2 - Pelvic and perineal pain (2) Chronic UTI: Code(s): N39.0 - Urinary tract infection, site not specified Plan Discussed: increasing her hydration, plan to follow-up with her urologist. Our office will contact their office today for a follow-up visit requested urgently. Ultrasound ordered patient advised to return to the office for an ultrasound follow-up. Urine sent for culture today. GC and BV panel sent. All of her questions and concerns were addressed to the best of my ability and shared decision making. She is agreeable to the plan of care. Advised to keep her appointments for: colposcopy/endometrial biopsy with Dr. Strong but due in April. Orders: Orders US pelvic and transvaginal Today D21.9 - Benign neoplasm of connective and other soft tissue, unspecified, R10.2 - Pelvic and perineal pain Bacterial Vaginosis Panel Today D21.9 - Benign neoplasm of connective and other soft tissue, unspecified, R10.2 - Pelvic and perineal pain CT NG by PCR Today D21.9 - Benign neoplasm of connective and other soft tissue, unspecified, R10.2 - Pelvic and perineal pain AMB Urinalysis Automated Today D21.9 - Benign neoplasm of connective and other soft tissue, unspecified, R10.2 - Pelvic and perineal pain Urine Culture Today D21.9 - Benign neoplasm of connective and other soft tissue, unspecified, R10.2 - Pelvic and perineal pain Coding Level of Care Code Est Pt Level 4 (07936) Diagnoses Pelvic pain R10.2 Chronic UTI N39.0
== END 2023-04-07 15:12 | disposition home or self-care (01) ==
PROVIDERS: PCP Internal Medicine; Visit Provider Advanced Practice Midwife
DX: R10.2 Pelvic and perineal pain (principal); N39.0 Urinary tract infection, site not specified; D21.9 Benign neoplasm of connective and other soft tissue, unspecified
CPT/HCPCS: 99214

== ENCOUNTER 2023-04-07 14:35 | Outpatient (REF) | payer MEDICAID, SELFPAY | END 2023-04-07 14:36 | disposition home or self-care (01) | LOC: HO.LNP 14:35 | PROVIDERS: Visit Provider Advanced Practice Midwife | DX: Z13.89 Encounter for screening for other disorder (principal) ==

== ENCOUNTER 2023-04-15 09:30 | Outpatient (AMB) | payer MEDICAID, SELFPAY ==
--- NOTE | 2023-04-15 09:43 | MHC.OFFVIS ---
Intake Intake Visit Reasons: S/P hydrodistention Intake Note: Patient presents today for a follow-up on S/P Hydrodistention, Pelvic Pain, UTI Symptoms: Meds- Macrobid (3 more days left) & Pyridium Allergies to Antibiotic- No Known Allergies Blood Thinner- None Montessori Paraprofessional Required: Yes Montessori Paraprofessional Language: Malay Accompanied by: Self / Same As Patient Allergies shellfish derived Allergy (Intermediate, Verified 05/12/23 10:23) HIVES, N/V Medication List - Last Reconciled 04/15/23 by Cornelia Fields MD albuterol sulfate 2.5 mg inhalation Q4-6H PRN albuterol sulfate 5 mg inhalation QID PRN benzonatate 200 mg PO TID PRN diclofenac sodium 75 mg PO BID uskzeex-yau-zjqjp-tenof alafen [phone] mg (Genvoya) 1 tab PO QPM fluticasone furoate-vilanterol 200-25 mcg/dose (Breo Ellipta) 1 inh inhalation DAILY 30 days fosfomycin tromethamine (Monurol) 1 packet PO Q OTHER DAY 4 doses furosemide (Lasix) 20 mg PO DAILY 30 days hydrocortisone 2.5% (Proctosol HC) 1 appl [place] BID linaclotide (Linzess) 145 mcg PO QAM meclizine 12.5 mg PO QID PRN nitrofurantoin macrocrystal 50 mg PO QID nitrofurantoin monohyd/m-cryst 100 mg (Macrobid) 100 mg PO DAILY nitrofurantoin monohyd/m-cryst 100 mg (Macrobid) 100 mg PO BID 7 days omeprazole 20 mg PO DAILY ondansetron 4 mg PO Q6-8H PRN phenazopyridine (Pyridium) 200 mg PO Q8H PRN 20 doses potassium chloride ER 10 mEq PO BID prednisone 40 mg (2 x 20 mg) PO DAILY rosuvastatin (Crestor) 20 mg PO DAILY sertraline 100 mg PO DAILY simethicone 180 mg PO QID 30 days umeclidinium 62.5 mcg/actuation (Incruse Ellipta) 1 inh inhalation DAILY 30 days zolpidem 10 mg PO BEDTIME HPI HPI Comments History of Present Illness Details [place] is a 63-year-old female who presents today to the office for a follow-up, being followed for nephrolithiasis, recurrent UTI's, pelvic pain 04/15/23-- she is s/p outpatient cystoscopy - findings c/w cystitis follicularis. The patient was started on Macrobid. urine c/s sent reviewed. Certified dam tender assistant was present during the visit. The patient states bladder pain is improving. I have discussed continue macrobid antibiotic suppressive therapy. Review of chart approximate 30 pack year smoker with underlying history of HIV on antivirals under the care of [facility], Breast cancer s/p lumpectomy in 2013 and multiple occurrences of hospitalizations for pneumonia, who is followed by Pulmonary. Her past medical history includes nicotine dependency, fibromyalgia CAT scan done on 09/18/22 noting bilateral kidney stones.?--done without IV contrast -- Multiple 1 mm right kidney stones and multiple left kidney stones, the largest measuring 6 mm.? 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 HIV (human immunodeficiency virus infection) Arthritis History of blood transfusion Anemia Hx of renal calculi Difficulty swallowing GERD (gastroesophageal reflux disease) Hepatitis Depression Sleep apnea Asthma Elevated cholesterol HTN (hypertension) Surgical History Hx of dilation and curettage Hx of section Hx of reduction mammoplasty Hx of tubal ligation Hx of cholecystectomy Hx of colonoscopy Family History Mother Breast cancer Father Heart problem Sister Bone cancer Family/Other Diabetes Social History Alcohol intake: current Alcohol intake frequency: does not drink Alcohol type: wine Patient Tobacco Use Status: Former Tobacco user Tobacco use type: Cigarette Cigarette Packs Per Day: 2 Years Smoked: 40+ Second Hand Smoke Exposure: No Sexual orientation: Straight/Heterosexual Gender identity: Female Female Reproductive History Menstrual Age of Menarche: 12 Review of Systems Const All systems reviewed & are unremarkable except as noted in HPI and below Reports no additional complaints Eyes Reports no additional complaints ENT Reports no additional complaints Card Denies dyspnea Resp Denies cough and Denies dyspnea GI Reports no additional complaints Reports no additional complaints Musc Reports no additional complaints Skin/Breast Denies rash and Denies unusual bruising Neuro Reports no additional complaints Psych Reports no additional complaints Endo Reports no additional complaints Flaquito/Lymph Reports no additional complaints Aller/Immun Reports no additional complaints Results AMB Urinalysis, Automated UA Leukoctes 500 Og/uL Last Edit by EMILY Hernandez on 04/15/23 10:00 3+ Margarita Mc 04/15/23 10:00 UA Nitrite Negative Last Edit by Margarita Mc [facility] on 04/15/23 10:00 UA Urobilinogen 0.2 mg/dL Last Edit by Margarita cM [facility] on 04/15/23 10:00 UA Protein 30 mg/dL Last Edit by Margarita Mc [facility] on 04/15/23 10:00 1+ Margarita Mc 04/15/23 10:00 UA pH 6.0 Last Edit by Margarita Mc [facility] on 04/15/23 10:00 UA Blood 200 [place]/uL Last Edit by Margarita Mc [facility] on 04/15/23 10:00 3+ Margarita Mc 04/15/23 10:00 UA Specific [place] 1.025 Last Edit by EMILY Hernandez on 04/15/23 10:00 UA Ketone Negative Last Edit by Margarita Mc [facility] on 04/15/23 10:00 UA Bilirubin 0 mg/dL Last Edit by Margarita Mc [facility] on 04/15/23 10:00 UA Glucose 0 mg/dL Last Edit by Margarita Mc [facility] on 04/15/23 10:00 Results Reviewed Results Reviewed: Laboratory Last Values Urine pH (Auto) 6.0 04/15/23 09:58 Specific [place] (Auto) 1.025 04/15/23 09:58 Urine Protein (Auto) 30 mg/dL 04/15/23 09:58 Glucose (UA)(Auto) 0 mg/dL 04/15/23 09:58 Urine Ketones (Auto) Negative 04/15/23 09:58 Urine Blood (Auto) 200 [place]/uL 04/15/23 09:58 Urine Nitrite (Auto) Negative 04/15/23 09:58 Urine Bilirubin (Auto) 0 mg/dL 04/15/23 09:58 Urine Urobilinogen (Auto) 0.2 mg/dL 04/15/23 09:58 Leukocyte Esterase (Auto) 500 Og/uL 04/15/23 09:58 Assessment & Plan Assessment & Plan (1) Bilateral nephrolithiasis: Code(s): N20.0 - Calculus of kidney (2) Pelvic pain: Code(s): R10.2 - Pelvic and perineal pain (3) Urinary tract infection symptoms: Code(s): R39.9 - Unspecified symptoms and signs involving the genitourinary system (4) Cystitis: Code(s): N30.90 - Cystitis, unspecified without hematuria Plan Abx suppressive therapy Nitrofurantoin 50 mg daily Orders: Orders Urine Culture 04/15/23 N39.0 - Urinary tract infection, site not specified AMB Urinalysis Automated 04/15/23 Z13.9 - Encounter for screening, unspecified Medications: New nitrofurantoin macrocrystal must administer with a meal/food 50 mg PO QID 90 caps 1RF Patient Instructions: The patient had an opportunity to ask questions regarding treatment plan. All questions were answered. Laboratory studies and physical exam results were discussed and reviewed in detail. No major barriers to understanding were identified. The patient expressed understanding and agreement with the above treatment plan. The patient is aware they should contact our office by phone for worsening of their current condition or the appearance of new symptoms. Compliance is encouraged with any medications and followup testing that is ordered. It is a privilege to be allowed the opportunity to participate in the urologic care of your patient. If you have any questions or concerns regarding treatment for the above conditions please do not hesitate to contact me. The office telephone contact is [phone]. This note is constructed in part using voice recognition software. While every effort has been made to ensure accuracy piccoloist errors may have been included. Yours sincerely, Cornelia Fields MD Coding Level of Care Code Est Pt Level 4 (93927) Diagnoses Bilateral nephrolithiasis N20.0 Pelvic pain R10.2 Urinary tract infection symptoms R39.9 Cystitis N30.90
== END 2023-04-15 10:26 | disposition home or self-care (01) ==
PROVIDERS: PCP Internal Medicine; Visit Provider Urology
DX: N20.0 Calculus of kidney (principal); R10.2 Pelvic and perineal pain; R39.9 Unspecified symptoms and signs involving the genitourinary system; N30.90 Cystitis, unspecified without hematuria
CPT/HCPCS: 99214

== ENCOUNTER 2023-04-15 10:32 | Outpatient (REF) | payer MEDICAID, SELFPAY | END 2023-04-15 10:33 | disposition home or self-care (01) | LOC: HO.LAB 10:32 | PROVIDERS: Visit Provider Urology | DX: N30.90 Cystitis, unspecified without hematuria (principal); R10.2 Pelvic and perineal pain; F17.210 Nicotine dependence, cigarettes, uncomplicated; N20.0 Calculus of kidney; R39.9 Unspecified symptoms and signs involving the genitourinary system; Z79.899 Other long term (current) drug therapy | CPT/HCPCS: 81003; 87086; 87088; 87186; 99212 ==

== ENCOUNTER 2023-05-11 10:41 | Outpatient (REF) | payer MEDICAID, SELFPAY ==
[2023-05-11 11:05] LABS: MANUAL DIFF FLAG NO
[2023-05-11 12:00] LABS: Basophils Percent Auto 0.2 % (0-2); Eosinophils Absolute Auto 0.1 X10*3/uL (0.0-0.4); Eosinophils Percent Auto 1.8 % (0-4); Hematocrit 38.3 % (37.0-47.0); Hemoglobin 12.1 g/dl (12.0-16.0); Imm Gran Abs Auto 0.02 X10*3/uL (0.00-0.03); Imm Gran Pct Auto 0.3 % (0.0-0.4); Lymphocytes Absolute Auto 1.3 X10*3/uL (1.2-4.9); Lymphocytes Percent Auto 20.8 % (20-40); Mean Corpuscular HGB Conc 31.6 g/dl (31.0-35.0); Mean Corpuscular Hemoglobin 29.1 pg (27.0-33.0); Mean Corpuscular Volume 92.1 fL (80.0-98.0); Mean Platelet Volume 11.5 fL (9.4-12.3); Monocytes Absolute Auto 0.4 X10*3/uL (0.1-1.2); Monocytes Percent Auto 6.1 % (2-11); Neutrophils Absolute Auto 4.4 x10*3/uL (2.0-8.3); Neutrophils Percent Auto 70.8 % (45-73); Platelet Count 206 X10*3/uL (160-400); Red Blood Count 4.16 X10*6/uL (4.20-5.50); Red Cell Distribution Width 13.3 % (11.0-16.0); White Blood Count 6.2 X10*3/uL (4.8-10.8)
[2023-05-11 12:59] LABS: Alanine Aminotransferase 11 U/L (0-31); Albumin Level 3.8 g/dL (3.5-5.0); Alkaline Phosphatase 63 U/L (39-117); Anion Gap 10 (12-20); Aspartate Amino Transferase 17 U/L (5-31); Bilirubin Total 0.2 mg/dL (0.0-1.0); Blood Urea Nitrogen 28 mg/dL (9-16); Calcium 9.4 mg/dL (8.4-10.2); Carbon Dioxide 30 mmol/L (22-29); Chloride 107 mmol/L (96-108); Estimated Glomerular Filt Rate > 60; Glucose Random 88 mg/dL (60-115); Potassium 4.5 mmol/L (3.3-5.1); Sodium 142 mmol/L (135-145); Total Protein 7.6 g/dL (6.5-8.0)
[2023-05-11 13:50] LABS: CT PCR NOT DETECTED (Not Detect.); NG PCR NOT DETECTED (Not Detect.)
[2023-05-13 10:18] LABS: Absolute CD3 Count 797 cells/uL (840-3060); Absolute CD4 Count 340 cells/uL (490-1740); Absolute CD8 Count 458 cells/uL (180-1170); Absolute Lymphocytes 1281 cells/uL (850-3900); CD4 CD8 Ratio 0.74 (0.86-5.00); Percent CD3 Cells 62 % (57-85); Percent CD4 Cells 27 % (30-61); Percent CD8 Cells 36 % (12-42)
[2023-05-13 12:53] LABS: RPR Rapid Plasma Reagin NON-REACTIVE (NON-REACTIVE)
[2023-05-13 14:44] LABS: HIV RNA PCR Qn Copies NOT DETECTED copies/mL (NOT DETECTED); HIV RNA PCR Qn Log Copies NOT DETECTED (NOT DETECTED)
== END 2023-05-11 10:42 | disposition home or self-care (01) ==
LOC: HO.LAB 10:41
PROVIDERS: PCP Internal Medicine; Visit Provider Internal Medicine
DX: B20 Human immunodeficiency virus [HIV] disease (principal)
CPT/HCPCS: 0353U; 80053; 85025; 86359; 86360; 86592; 87536

== ENCOUNTER 2023-05-12 10:01 | Outpatient (AMB) | payer MEDICAID, SELFPAY ==
--- NOTE | 2023-05-12 10:22 | MHC.OFFVIS ---
Intake Vital Signs 05/12/23 10:23 BP 104/60 Intake Visit Reasons: Colposcopy/EMB Cultured Marble Products Maker Required: Yes Cultured Marble Products Maker Language: Automation Mechanic Name: Leigh DIAZ Information Interpreted: non-clinical & clinical General Manager Food: General Manager Food Present (Leigh) Allergies shellfish derived Allergy (Intermediate, Verified 05/12/23 10:23) HIVES, N/V HPI HPI Comments History of Present Illness Details Presenting referred from Mary Anne Lance CNM regarding abnormal endometrium by ultrasound and LGSIL Pap smear done at [place] in 03/11 showing LGSIL. The patient has no history of vaginal bleeding. Ultrasound showed the following: IMPRESSION: 1. The endometrium is thickened and heterogeneous measuring 1.0 cm with trace fluid in the endometrial canal. Recommend correlation with any history of postmenopausal bleeding and gynecologic evaluation and management. 2. A 1.4 cm calcified uterine myoma not significantly changed. 3. Unremarkable sonographic appearance of the right ovary. The left ovary was not identified sonographically. No adnexal mass. The report will be called to the ordering clinician by a [facility] Method Consultant. 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 HIV (human immunodeficiency virus infection) Arthritis History of blood transfusion Anemia Hx of renal calculi Difficulty swallowing GERD (gastroesophageal reflux disease) Hepatitis Depression Sleep apnea Asthma Elevated cholesterol HTN (hypertension) Surgical History Hx of dilation and curettage Hx of section Hx of reduction mammoplasty Hx of tubal ligation Hx of cholecystectomy Hx of colonoscopy Family History Mother Breast cancer Father Heart problem Sister Bone cancer Family/Other Diabetes Social History Alcohol intake: current Alcohol intake frequency: does not drink Alcohol type: wine Patient Tobacco Use Status: Former Tobacco user Tobacco use type: Cigarette Cigarette Packs Per Day: 2 Years Smoked: 40+ Second Hand Smoke Exposure: No Sexual orientation: Straight/Heterosexual Gender identity: Female Female Reproductive History Menstrual Age of Menarche: 12 Review of Systems Const All systems reviewed & are unremarkable except as noted in HPI and below Physical Exam General: Yes no CVA tenderness External Female Exam: normal external appearance and normal appearance of the urethra Speculum Exam - Vagina: normal appearance of the vagina, normal palpation, no lesions and no masses Speculum Exam - Cervix: normal appearance of the cervix, normal palpation, no lesions, no masses and nontender Bimanual exam- vagina & uterus: normal bimanual exam, normal palpation, uterine size normal, normal palpation, uterine shape normal, No Cervical tenderness present and non-tender Bimanual Exam- Adnexa, other: normal adnexae Back/Spine/Pelvis Back: no CVA tenderness Office Procedures Colposcopy Before the procedure was started discussed with the patient the procedure, alternatives & all the risks associated with the procedure (bleeding, infection, injury to vagina, bladder, vessels, possible need for transfusion with all its risks) then patient signed the consent Pap smear = LSIL Speculum inserted, acetic acid used Colposcopy done Transformation zone seen, acetowhite lesions identified at 4+6+7+12 o?clock, cervical biopsies taken from 4+6+7+12 o?clock, ECC done afterwards. Vaginoscopy of the upper vagina showed no evidence of any aceto-white lesions Monsel solution used for hemostasis. The patient tolerated well . At the end the patient was instructed to call if temp>100.4, abdominal pain, n/v, bleeding; The patient was given the following instructions: nothing per vagina, no intercourse or bath tub use. All questions answered the patient verbalized understanding. Instructed the patient to make an appointment in 2 weeks for follow-up This note was generated with a voice recognition program. Some errors may have been overlooked during the review of this note. Sometimes these errors may affect the content or meaning of a given sentence. 21169-Ajlzahgqg of cervix including upper vagina with biopsy and ECC Procedure code (CPT) selection complete Endometrial Biopsy Details: The patient was counseled regarding the indication and benefits of endometrial sampling to rule out endometrial pathology including not limited to endometrial hyperplasia or endometrial cancer and others; The alternatives (Either do nothing vs. hysteroscopy D&C) & the risks were discussed with the patient including but not limited: pain, uterine perforation, bleeding, infection, possible injury to bladder, bowel, ureter, possible need for blood transfusion with all its possible risks. The patient verbalized understanding all questions answered and signed consent. The patient was placed into the dorsal lithotomy position; a speculum was inserted in the vagina. Using aseptic technique for the procedure, the cervix was cleansed with Betadine. The anterior lip of the cervix was grasped with a single tooth tenaculum. The uterus was sounded to 7 cm with a 4 mm Pipelle was used. Tissues samples were obtained and placed in formalin, in a patient labeled container and sent to the pathology department. At the end of the procedure, there was minimal bleeding noted The patient tolerated the procedure well and was discharged in good condition with the following instructions: Nothing in the vagina until the bleeding stops. No sex until the bleeding stops, to call if any of the following occurs: fever (>100.4), flu-like symptoms, abdominal pain, heavy bleeding, four smelling vaginal discharge. The patient was instructed to schedule a Follow up appointment in 2 weeks to discuss pathology results of the biopsy and treatment options. This note was generated with a voice recognition program. Some errors may have been overlooked during the review of this note. Sometimes these errors may affect the content or meaning of a given sentence. 45113-Ogwfsnjnjpj Biopsy Assessment & Plan Assessment & Plan (1) Endometrial thickening on ultrasound: Comment: With endometrial fluid Code(s): R93.89 - Abnormal findings on diagnostic imaging of other specified body structures Plan: Discussed with the patient endometrial thickness above 4 mm in menopause , the differential diagnosis of a thickened endometrium includes but not limited to endometrial polyp, hyperplasia or carcinoma. Explained to the patient that endometrial each thickness is less predictive of endometrial neoplasia in asymptomatic patients, i.e. those without postmenopausal uterine bleeding. The sensitivity and specificity for detecting endometrial carcinoma at an endometrial thickness of >= 5mm was 83 and 72 percent, respectively; this is lower than in patients with bleeding. Studies have shown that postmenopausal patients without uterine bleeding who had an endometrial thickness >11 mm had an endometrial carcinoma risk of 6.7 percent; this risk is similar to postmenopausal patients with bleeding and an endometrial thickness >5 mm. Recommended endometrial sampling to rule endometrial pathology via either office endometrial biopsy or diagnostic hysteroscopy/D&C with possible polypectomy/myomectomy. All pros and cons, risks and benefits of each approach were discussed with the patient, the patient decided to proceed with endometrial biopsy. All questions answered, the patient verbalized . EMB done, see procedure note (2) LGSIL on Pap smear of cervix: Code(s): R87.612 - Low grade squamous intraepithelial lesion on cytologic smear of cervix (LGSIL) Plan: Discussed with the patient the result of her abnormal pap, its significance, risk of progression, persistence, and regression if untreated. the false positive/negative rate being a screening test, the indication for diagnostic test -colposcopy, biopsy, endocervical curettage. The patient verbalized understanding and agreed with the plan, all questions answered. Colpo/biopsy/ECC done, see procedure note (3) Uterine fibroid: Code(s): D25.9 - Leiomyoma of uterus, unspecified Plan: Discussed with the patient the findings on pelvic ultrasound & the risk of myosarcoma; discussed with the patient the options of treatment including expectant management versus hysterectomy; the pros and cons, risks benefits of each approach were discussed with the patient including the fact that in cases of myosarcoma, surgical treatment can lead to early diagnosis and positively affects the prognosis; after further discussion, the patient decided to proceed with expectant management. pelvic ultrasound scheduled soon. Instructions given to patient to call in case any of the following occurs: pressure symptoms, abnormal uterine bleeding, pelvic pain; and to schedule a follow-up appointment . All questions answered, the patient verbalized understanding and agreed with the plan . Orders: Orders AMB Colposcopy Today R87.612 - Low grade squamous intraepithelial lesion on cytologic smear of cervix (LGSIL) AMB Endometrial Biopsy Today R93.89 - Abnormal findings on diagnostic imaging of other specified body structures Coding Level of Care Code Est Pt Level 3 (84634) Procedure Only Diagnoses Endometrial thickening on ultrasound R93.89 LGSIL on Pap smear of cervix R87.612 Uterine fibroid D25.9 CPT Codes Colposcopy - CPT: 90086-Mvhtnimtz of cervix including upper vagina with biopsy and ECC ([id number]) Endometrial Biopsy - CPT: 03484-Eultjgeuumq Biopsy ([id number])
[2023-05-12 10:23] VITALS: BP 104/60
== END 2023-05-12 11:47 | disposition home or self-care (01) ==
LOC: HO.HWS 10:01
PROVIDERS: PCP Internal Medicine; Referring Provider Internal Medicine; Visit Provider Obstetrics & Gynecology
DX: R93.89 Abnormal findings on diagnostic imaging of other specified body structures (principal); R87.612 Low grade squamous intraepithelial lesion on cytologic smear of cervix (LGSIL); D25.9 Leiomyoma of uterus, unspecified
CPT/HCPCS: 57454; 58110

== ENCOUNTER 2023-05-12 11:08 | Outpatient (REF) | payer MEDICAID, SELFPAY | END 2023-05-12 11:09 | disposition home or self-care (01) | LOC: HO.LNP 11:08 | PROVIDERS: Visit Provider Obstetrics & Gynecology | DX: R87.612 Low grade squamous intraepithelial lesion on cytologic smear of cervix (LGSIL) (principal); R93.89 Abnormal findings on diagnostic imaging of other specified body structures; D25.9 Leiomyoma of uterus, unspecified | CPT/HCPCS: 57454; 58110; 88305 ==

== ENCOUNTER 2023-05-22 12:59 | Emergency (ER) | payer MEDICAID, SELFPAY ==
--- NOTE | ~2023-05-22 | XR_ITS ---
EXAMINATION: XR CHEST CLINICAL INFORMATION: Shortness of breath. Chest pain. COMPARISON: Previous chest x-ray December 2022 and chest TECHNIQUE: 2 views of the chest were obtained. FINDINGS: The cardiac contours are stable. Vertical staple lines at the right lung apex and left lung base. New faint round opacity in the left lung base measuring 3.5 cm adjacent to surgical staple line. Question representing areas of pneumonitis or small pneumonia. Mass cannot be excluded and chest CT follow-up following treatment recommended. Linear subsegmental atelectasis at the left lung a cyst. No pleural effusion or pneumothorax. Degenerative changes of the spine. XR/XR chest 2V IMPRESSION: 3.5 cm round opacity in the left lung base adjacent to surgical staple line. Question pneumonitis or small pneumonia. Mass cannot be excluded and chest CT follow-up following treatment recommended.
--- NOTE | ~2023-05-22 | CT_ITS ---
EXAMINATION: EXAMINATION: CTA CHEST PE STUDY CLINICAL INFORMATION: L sided pleuritic chest pain, B/L LE swell, r/ PE COMPARISON: No pertinent prior studies are available for comparison. TECHNIQUE: Prior to contrast administration, noncontrast localization images were obtained. After the administration of 65 mL of Omnipaque nonionic IV contrast, contiguous thin slice helical images were obtained through the thorax. Reformatted MIP images in the coronal and sagittal planes were obtained at the acquisition workstation. This CT examination was performed using dose optimization techniques as appropriate, variously including the following: *Automated exposure control *Adjustment of mA and/or kV according to patient size (this includes techniques or standardized protocols for targeted exams where dose is matched to indication/reason for exam; i.e. extremities or head) *Use of iterative reconstruction technique DLP: 269 mGy-cm. FINDINGS: The bolus timing on this study was acceptable for visualization of the pulmonary arterial tree. There are no intraluminal pulmonary arterial filling defects present to suggest pulmonary embolism. Patchy airspace disease is seen in the dependent lower lobes more so in the left lower lobe. Infectious etiology/pneumonia would be suspected with this appearance. Clinical correlation would be recommended. Central airways grossly unremarkable. No abnormal pulmonary nodules or masses are appreciated. No significant hilar or mediastinal adenopathy. There is no evidence of pleural effusion or pneumothorax. The heart is normal in size. No evidence of ventricular septal bowing or right heart strain. Great vessels are normal. Otherwise the mediastinum is unremarkable. There is no pericardial effusion or pericardial thickening. Limited evaluation of the upper abdominal viscera demonstrates a partially visualized left renal cyst. CT/CT angio chest PE protocol IMPRESSION: 1. No evidence for pulmonary emboli. 2. Patchy airspace disease in the dependent lower lobes more so on the left. Infectious etiology/pneumonia would be suspected with this appearance. 3. VTE: Negative.
--- NOTE | 2023-05-22 13:01 | ECG_ITS ---
Test Reason : pain Blood Pressure : / mmHG Vent. Rate : 068 BPM Atrial Rate : 068 BPM P-R Int : 160 ms QRS Dur : 088 ms QT Int : 404 ms P-R-T Axes : 052 -37 050 degrees QTc Int : 429 ms Normal sinus rhythm Left axis deviation Abnormal ECG When compared with ECG of 18-SEP-2022 10:55, No significant change was found Referred By: Sweetie Calabrese Electronically Signed By:AZEEM FLANAGAN MD
[2023-05-22 13:18] VITALS: BP 123/56; PULSE 69; RESP 18; TEMP 36.6; O2SAT 97; BMI 36.2
--- NOTE | 2023-05-22 13:22 | ED.GENADULT ---
HPI - General Adult General Chief complaint: Chest Pain Stated complaint: pain all over chest back head Time Seen by Provider: 05/22/23 16:31 Source: patient Mode of arrival: ambulatory Limitations: no limitations History of Present Illness HPI narrative: 61-year-old female with a history of hypertension, hyperlipidemia, asthma, anemia, depression, UTI, fibromyalgia, pneumonia in the past, recently worked up (05/12/2023) for endometrial thickening biopsy revealed low-grade squamous intraepithelial lesion (RUDI I)-patient has not followed up yet with medical office worker for this result who presents emergency department for evaluation of 3 days of cough productive of thick brown sputum, left-sided chest pain which started yesterday, the pain is pleuritic in nature, worse with breathing and coughing, shortness of breath, bilateral lower extremity swelling which she states is chronic left greater than right. . Related Data Home Medications Medication Instructions Recorded Confirmed albuterol sulfate 2.5 mg/3 mL 2.5 mg inhalation Q4-6H PRN 01/24/20 04/15/23 (0.083 %) solution for nebulization Shortness Of Breath elviteg 150 mg-cob 150 mg-emtricit 1 tab PO QPM 01/24/20 04/15/23 200 mg-tenofo alafenam 10 mg tablet (Genvoya) rosuvastatin 20 mg tablet (Crestor) 20 mg PO DAILY 01/24/20 04/15/23 sertraline 100 mg tablet 100 mg PO DAILY 09/23/21 04/15/23 zolpidem 10 mg tablet 10 mg PO BEDTIME 09/23/21 04/15/23 diclofenac sodium 75 mg 75 mg PO BID 09/09/22 04/15/23 tablet,delayed release meclizine 12.5 mg tablet 12.5 mg PO QID PRN Vertigo 09/09/22 04/15/23 omeprazole 20 mg capsule,delayed 20 mg PO DAILY 03/26/23 04/15/23 release potassium chloride 10 mEq 10 meq PO BID 03/26/23 04/15/23 tablet,extended release Previous Rx's Medication Instructions Recorded ondansetron 4 mg disintegrating 4 mg PO Q6-8H PRN nausea and 10/01/21 tablet vomiting #14 tabs simethicone 180 mg capsule 180 mg PO QID 30 days #120 caps 05/21/22 hydrocortisone 2.5 % topical cream 1 appl MT BID hemorrhoids #30 grams 08/17/22 with perineal applicator (Proctosol HC) furosemide 20 mg tablet (Lasix) 20 mg PO DAILY 30 days #30 tabs 12/02/22 fluticasone furoate 200 1 inh inhalation DAILY 30 days #60 01/08/23 mcg-vilanterol 25 mcg/dose ea inhalation powder (Breo Ellipta) umeclidinium 62.5 mcg/actuation 1 inh inhalation DAILY 30 days #30 01/08/23 blister powder for inhalation ea (Incruse Ellipta) albuterol sulfate 2.5 mg/0.5 mL 5 mg inhalation QID PRN shortness 01/16/23 solution for nebulization of breath or wheezing #30 ea benzonatate 200 mg capsule 200 mg PO TID PRN cough #20 caps 01/16/23 prednisone 20 mg tablet 40 mg (2 x 20 mg) PO DAILY #10 tabs 01/16/23 linaclotide 145 mcg capsule 145 mcg PO QAM #30 caps 02/18/23 (Linzess) nitrofurantoin 100 mg PO BID 7 days #14 caps 03/03/23 monohydrate/macrocrystals 100 mg capsule (Macrobid) phenazopyridine 200 mg tablet 200 mg PO Q8H PRN pain 20 doses 03/22/23 (Pyridium) #20 tabs fosfomycin tromethamine 3 gram 1 packet PO Q OTHER DAY 4 doses #4 03/30/23 oral packet (Monurol) ea nitrofurantoin 100 mg PO DAILY #45 caps 03/30/23 monohydrate/macrocrystals 100 mg capsule (Macrobid) nitrofurantoin macrocrystal 50 mg 50 mg PO QID #90 caps 04/15/23 capsule amoxicillin 500 mg capsule 1,000 mg (2 x 500 mg) PO TID 5 05/22/23 days #30 caps doxycycline hyclate 100 mg tablet 100 mg PO Q12H 5 days #10 tabs 05/22/23 naproxen 500 mg tablet 500 mg PO BID PRN pain 7 days #14 05/22/23 tabs oxycodone 5 mg tablet 5 mg PO Q6H PRN pain #10 tabs 05/22/23 Allergies Allergy/AdvReac Type Severity Reaction Status Date / Time shellfish derived Allergy Intermediate HIVES, N/V Verified 05/22/23 13:24 Review of Systems Review of Systems: Yes all other systems are reviewed and are negative [facility] Past Medical History [facility] Narrative: Social history: She denies tobacco, alcohol and drug use Medical History Uterine fibroid Hematuria Fibromyalgia 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 HIV (human immunodeficiency virus infection) Arthritis History of blood transfusion Anemia Hx of renal calculi Difficulty swallowing GERD (gastroesophageal reflux disease) Hepatitis Depression Sleep apnea Asthma Elevated cholesterol HTN (hypertension) Surgical History Hx of dilation and curettage Hx of section Hx of reduction mammoplasty Hx of tubal ligation Hx of cholecystectomy Hx of colonoscopy Family History Family History Mother Breast cancer Father Heart problem Sister Bone cancer Family/Other Diabetes Social History Social History Alcohol intake: current Alcohol intake frequency: does not drink Alcohol type: wine Patient Tobacco Use Status: Former Tobacco user Tobacco use type: Cigarette Cigarette Packs Per Day: 2 Years Smoked: 40+ Second Hand Smoke Exposure: No Advance Directives: No Advance Directives Information Provided: No Patient : No Sexual orientation: Straight/Heterosexual Gender identity: Female Physical Exam ED Vital Signs: Vital Signs - 24 hr 05/22/23 13:18 05/22/23 15:40 05/22/23 18:00 Temperature 97.9 F 98.1 F 98.3 F Pulse Rate 69 64 63 Respiratory Rate 18 18 14 Blood Pressure 123/56 L 106/56 L 122/89 Pulse Oximetry 97 98 98 Oxygen Delivery Method Room Air Room Air Room Air 05/22/23 20:49 Temperature Pulse Rate 79 Respiratory Rate 20 Blood Pressure 107/60 Pulse Oximetry 94 Oxygen Delivery Method Room Air BMI result Body Mass Index 36.2 Vital signs were normal. Exam General: Awake, alert in no distress Head: Normocephalic, atraumatic EENT: PERRL, Lids normal, sclera normal, conjunctiva normal, nose normal , ears normal, throat without erythema or exudates Neck: Supple, no adenopathy Lung: breath sounds symmetric, no wheezing,, no rhonchi, rales at the left base asymmetric compared to the right Chest: symmetric movement, nontender Heart: regular rate and rhythm, normal S1, S2 no murmurs or rubs Abdomen: soft, non-tender, nondistended, normal bowel sounds Back: no vertebral tenderness, no CVAT Extremities: no deformities, moves all extremities symmetrically, no pitting edema, legs appear to be symmetric in size Skin: no rashes, no lesion, normal color and warmth Neuro: Awake, alert, oriented, normal speech, cranial nerves intact, moves all extremities symmetrically Psych: Pleasant, cooperative Course Course Course Narrative: This is a rapid medical exam: Additional HPI, ROS, PE not included below will be deferred to primary provider. Patient is a 63-year-old female with history of HIV on genvoya, fibromyalgia, anemia, GERD, hepatitis, asthma, HTN presenting to the emergency department with complaint of chest pain to left lateral ribs radiating to back for 2 days. Also complains of dyspnea, nausea, dizziness. Also complains of abdominal pain, reports 3 known hernias. Plan: EKG, labs, CXR, viral swabs, UA Medications Administered Discontinued Medications Generic Name Dose Route Start Last Admin Trade Name Freq PRN Reason Stop Dose Admin Sodium Chloride 1,000 mls @ 999 mls/hr 05/22/23 17:44 05/22/23 21:18 Ns IV 05/22/23 18:44 Infused .Q1H1M STA Infusion Ceftriaxone Sodium 1 gm/ 50 mls @ 100 mls/hr 05/22/23 17:44 05/22/23 19:41 Sodium Chloride IV 05/22/23 18:13 Infused ONCE ONE Infusion Azithromycin 500 mg/ Sodium 250 mls @ 125 mls/hr 05/22/23 17:44 05/22/23 19:39 Chloride IV 05/22/23 19:43 125 mls/hr ONCE ONE Administration Iohexol 100 ml 05/22/23 18:42 05/22/23 18:42 Iohexol 350 Mg/Ml 100 Ml Infus..Btl IV 05/22/23 18:43 65 ml ONCE ONE Administration Ketorolac Tromethamine 15 mg 05/22/23 17:44 02/03/24 18:21 Ketorolac Tromethamine 15 Mg/Ml Vial IVPUSH 05/22/23 17:45 15 mg ONCE STA Administration Ondansetron HCl 4 mg 05/22/23 17:44 05/22/23 18:21 Ondansetron Hcl 4 Mg/2 Ml Vial IVPUSH 05/22/23 17:45 4 mg ONCE ONE Administration Medical Decision Making Medical Decision Making MDM Narrative: 61-year-old female with a history of hypertension, hyperlipidemia, asthma, anemia, depression, UTI, fibromyalgia, pneumonia in the past, recently worked up (05/12/2023) for endometrial thickening biopsy revealed low-grade squamous intraepithelial lesion (RUDI I)-patient has not followed up yet with medical office worker for this result who presents emergency department for evaluation of 3 days of cough productive of thick brown sputum, left-sided chest pain which started yesterday, the pain is pleuritic in nature, worse with breathing and coughing, shortness of breath, bilateral lower extremity swelling which she states is chronic left greater than right. Vital signs were normal. Lung exam did reveal rales at the left base asymmetric compared to the right Differential diagnosis: Includes but is not limited to myocardial infarction, myocardial ischemia, chest wall pain, pneumonia, bronchitis, pulmonary embolus Initial treatment: Normal saline x1 L, Toradol 15 mg IV, Zofran 4 mg IV, ceftriaxone 1 g IV, azithromycin 500 mg IV 17:52 My interpretation patient's laboratory evaluation is as follows: CBC normocytic anemia with an H&H of 11 and 37, WBC was normal 7100. Bicarb elevated 30. BUN elevated 21. Troponin was below detectable limits. Chest x-ray is concerning for left lower lobe infiltrate consistent with pneumonia, radiologist noted round opacity at the left lung base therefore I will obtain a CT scan pulmonary angiogram to rule out possible PE versus mass Twelve EKG was unremarkable. 20:56 Patient's D-dimer was below detectable limits, CT pulmonary angiogram revealed no PE but is consistent with left-sided pneumonia. Patient is feeling better. Patient will be treated with amoxicillin 1000 mg every 8 hours for 5 days, doxycycline 100 mg twice a day for 5 days, naproxen 500 mg twice a day as needed for pain and for pain not relieved by naproxen she was prescribed oxycodone. She was given printed and verbal instructions discharged home. Admission/Observation Consideration of admission/observation: Escalation of care including admission/observation considered Lab Data 05/22/23 13:43 05/22/23 13:43 Labs: Lab Results 05/22/23 05/22/23 05/22/23 Range/Units 13:43 18:07 20:48 WBC 7.1 (4.8-10.8) X10*3/uL RBC 4.03 L (4.20-5.50) X10*6/uL Hgb 11.8 L (12.0-16.0) g/dl Hct 36.2 L (37.0-47.0) % MCV 89.8 (80.0-98.0) fL MCH 29.3 (27.0-33.0) pg MCHC 32.6 (31.0-35.0) g/dl RDW 13.2 (11.0-16.0) % Plt Count 197 (160-400) X10*3/uL MPV 10.7 (9.4-12.3) fL Immature Gran % (Auto) 0.3 (0.0-0.4) % Neut % (Auto) 72.6 (45-73) % Lymph % (Auto) 18.4 L (20-40) % [place] % (Auto) 6.2 (2-11) % Eos % (Auto) 2.4 (0-4) % Baso % (Auto) 0.1 (0-2) % Lymph # (Auto) 1.3 (1.2-4.9) X10*3/uL [place] # (Auto) 0.4 (0.1-1.2) X10*3/uL Eos # (Auto) 0.2 (0.0-0.4) X10*3/uL Baso # (Auto) 0.0 (0.0-0.2) X10*3/uL Abs Immat Gran (auto) 0.02 (0.00-0.03) X10*3/uL Absolute Neuts (auto) 5.1 (2.0-8.3) x10*3/uL Absolute Nucleated RBC 0.000 (0.0-0.012) X10*3/uL Nucleated RBC % (auto) 0.0 (0.0-0.2) /100WBC PT 11.8 (11.1-13.3) SEC INR 1.0 (0.9-1.1) D-Dimer High Sensitivty < 150 NG/ML Sodium 142 (135-145) mmol/L Potassium 3.9 (3.3-5.1) mmol/L Chloride 107 (96-108) mmol/L Carbon Dioxide 30 H (22-29) mmol/L Anion Gap 9 L (12-20) BUN 21 H (9-16) mg/dL Creatinine 0.84 (0.5-1.4) mg/dL Estim Creat Clear Calc 75.1 Estimated GFR > 60 Random Glucose 92 (60-115) mg/dL Lactic Acid 0.8 (0.5-2.0) mmol/L Calcium 9.4 (8.4-10.2) mg/dL Total Bilirubin 0.4 (0.0-1.0) mg/dL AST 18 (5-31) U/L ALT 12 (0-31) U/L Alkaline Phosphatase 77 (39-117) U/L Troponin I High Sens < 2.7 (<3.5-17.0) ng/L Total Protein 7.8 (6.5-8.0) g/dL Albumin 3.8 (3.5-5.0) g/dL Urine Color Yellow Urine Appearance Clear Urine pH 6.5 (5.0-9.0) Ur Specific [place] >= 1.030 H (1.005-1.025) Urine Protein Negative (Neg-Trace) mg/dL Urine Glucose (UA) Negative (Negative) mg/dL Urine Ketones Negative (Negative) mg/dL Urine Blood Trace H (Negative) Urine Nitrite Negative (Negative) Ur Leukocyte Esterase Small (1+) H (Negative) Urine RBC 0-2 (0-2) /HPF Urine WBC 21-50 H (0-5) /HPF Ur Squamous Epith Cells 0-2 (0-2) /HPF Urine Bacteria None Seen (None Seen) Hyaline Casts 0-2 (0-2) /LPF COVID-19 (JONH) Negative (Negative) COVID-19 Clin Com See Note Influenza Type A (STEVEN) Negative (Negative) Influenza Type B (STEVEN) Negative (Negative) Influenza A & B Note See Note Independent Interpretation I performed an independent interpretation of an: EKG and Plain X-Ray Interpretation: My independent interpretation patient's two view chest x-ray left lower lobe infiltrate, radiology reading noted below My interpretation of the patient's 12 EKG is as follows: Normal sinus rhythm rate of 68, normal MT interval, QRS duration QTC interval, no ST segment elevation, no ST segment depression, no PACs, no PVCs, no significant T-wave abnormalities, when compared to EKG dated 09/18/2022 there has no significant change. Radiology Impression Discussion of test interpretation with radiology: I have reviewed the radiologist's reading. Radiologist Impression: XR chest 2V IMPRESSION: 3.5 cm round opacity in the left lung base adjacent to surgical staple line. Question pneumonitis or small pneumonia. Mass cannot be excluded and chest CT follow-up following treatment recommended. Dictated By: Patria Hernandes MD CT angio chest PE protocol IMPRESSION: 1. No evidence for pulmonary emboli. 2. Patchy airspace disease in the dependent lower lobes more so on the left. Infectious etiology/pneumonia would be suspected with this appearance. 3. VTE: Negative. Dictated By: Hank Saab MD Critical Care Time Critical Care Time Critical Care Time: Yes Total Critical Care Time: 45 Attestation: Critical Care: The patient was critically ill with a high probability of imminent or life threatening deterioration. I spent greater than 30 minutes of discontinuous time evaluating the patient,delivering critical care at the bedside, discussing and evaluating pertinent data with consultants. Critical care time does not include time spent performing separately billable procedures or teaching. Total time spent performing critical care was 45 minutes. Discharge Plan Discharge Clinical Impression: Pneumonia, Pleuritic chest pain Patient Disposition: Home, Self-Care Instructions: Community Acquired Pneumonia (ED) Additional Instructions: Your chest x-ray was consistent with a left-sided pneumonia which explains your pain and symptoms The CT scan of your chest revealed no mass or blood clot in your lungs which is reassuring, left-sided pneumonia was seen on the CT scan. Take amoxicillin 500 mg pills, 2 pills every 8 hours for 5 days Take doxycycline 100 mg pills, 1 pill every 8 hours for 5 days Take naproxen 500 mg pills, 1 pill every 12 hours as needed for pain Take Tylenol (acetaminophen) 500 mg pills, 2 pills every 4-6 hours as needed for pain. For pain not relieved by naproxen or Tylenol take oxycodone 5 mg pills, 1 pill every 4 hours as needed for pain. Do not drive or work while taking this medication since they can cause sleepiness. Oxycodone is a narcotic medication that can be addicting. If you are concerned about addiction you can ask the pharmacist for less pills or do not get this prescription filled. Follow-up with your doctor in 2 days. Please return to the emergency department if your symptoms get worse or if you develop any symptoms that are concerning to you. Prescriptions: New amoxicillin 500 mg capsule 1,000 mg PO TID 5 Days Qty: 30 0RF doxycycline hyclate 100 mg tablet 100 mg PO Q12H 5 Days Qty: 10 0RF oxycodone 5 mg tablet 5 mg PO Q6H PRN (Reason: pain) Qty: 10 0RF Rx Instructions: Patient may request partial refill; Partial Fill upon patient request. naproxen 500 mg tablet 500 mg PO BID PRN (Reason: pain) 7 Days Qty: 14 0RF No Action hydrocortisone [Proctosol HC] 2.5 % cream with perineal applicator 1 appl MT BID Qty: 30 6RF Rx Instructions: BE SURE TO INCLUDE RECTAL APPICATOR!! fluticasone furoate-vilanterol [Breo Ellipta] 200-25 mcg/dose blister with device 1 inh inhalation DAILY 30 Days Qty: 60 6RF Incruse Ellipta 62.5 mcg/actuation blister with device 1 inh inhalation DAILY 30 Days Qty: 30 6RF Linzess 145 mcg capsule 145 mcg PO QAM Qty: 30 3RF phenazopyridine [Pyridium] 200 mg tablet 200 mg PO Q8H PRN (Reason: pain) Qty: 20 0RF albuterol sulfate 2.5 mg /3 mL (0.083 %) Solution For Nebulization 2.5 mg INHALATION Q4-6H PRN (Reason: Shortness Of Breath) rosuvastatin [Crestor] 20 mg Tablet 20 mg PO DAILY Genvoya [phone] mg Tablet 1 tab PO QPM ondansetron 4 mg tablet,disintegrating 4 mg PO Q6-8H PRN (Reason: nausea and vomiting) Qty: 14 0RF benzonatate 200 mg capsule 200 mg PO TID PRN (Reason: cough) Qty: 20 0RF prednisone 20 mg tablet 40 mg PO DAILY Qty: 10 0RF albuterol sulfate 2.5 mg/0.5 mL solution for nebulization 5 mg inhalation QID PRN (Reason: shortness of breath or wheezing) Qty: 30 0RF potassium chloride 10 mEq Tablet Extended Release 10 meq PO BID omeprazole 20 mg Capsule,Delayed Release(Dr/Ec) 20 mg PO DAILY fosfomycin tromethamine [Monurol] 3 gram packet 1 packet PO Q OTHER DAY Qty: 4 0RF Rx Instructions: Take on Wed/Wed//Wednesday nitrofurantoin monohyd/m-cryst [Macrobid] 100 mg capsule 100 mg PO DAILY Qty: 45 0RF Rx Instructions: must administer with a meal/food, After completing the fosfomycin antibiotics, start macrobid daily for 45 days zolpidem 10 mg tablet 10 mg PO BEDTIME sertraline 100 mg tablet 100 mg PO DAILY simethicone 180 mg capsule 180 mg PO QID 30 Days Qty: 120 6RF Rx Instructions: after meals nitrofurantoin monohyd/m-cryst [Macrobid] 100 mg capsule 100 mg PO BID 7 Days Qty: 14 0RF Rx Instructions: must administer with a meal/food nitrofurantoin macrocrystal 50 mg capsule 50 mg PO QID Qty: 90 1RF Rx Instructions: must administer with a meal/food diclofenac sodium 75 mg tablet,delayed release (DR/EC) 75 mg PO BID meclizine 12.5 mg tablet 12.5 mg PO QID PRN (Reason: Vertigo) furosemide [Lasix] 20 mg tablet 20 mg PO DAILY 30 Days Qty: 30 6RF
[2023-05-22 13:48] LABS: MANUAL DIFF FLAG NO
[2023-05-22 13:53] LABS: Basophils Percent Auto 0.1 % (0-2); Eosinophils Absolute Auto 0.2 X10*3/uL (0.0-0.4); Eosinophils Percent Auto 2.4 % (0-4); Hematocrit 36.2 % (37.0-47.0); Hemoglobin 11.8 g/dl (12.0-16.0); Imm Gran Abs Auto 0.02 X10*3/uL (0.00-0.03); Imm Gran Pct Auto 0.3 % (0.0-0.4); Lymphocytes Absolute Auto 1.3 X10*3/uL (1.2-4.9); Lymphocytes Percent Auto 18.4 % (20-40); Mean Corpuscular HGB Conc 32.6 g/dl (31.0-35.0); Mean Corpuscular Hemoglobin 29.3 pg (27.0-33.0); Mean Corpuscular Volume 89.8 fL (80.0-98.0); Mean Platelet Volume 10.7 fL (9.4-12.3); Monocytes Absolute Auto 0.4 X10*3/uL (0.1-1.2); Monocytes Percent Auto 6.2 % (2-11); Neutrophils Absolute Auto 5.1 x10*3/uL (2.0-8.3); Neutrophils Percent Auto 72.6 % (45-73); Platelet Count 197 X10*3/uL (160-400); Red Blood Count 4.03 X10*6/uL (4.20-5.50); Red Cell Distribution Width 13.2 % (11.0-16.0); White Blood Count 7.1 X10*3/uL (4.8-10.8)
[2023-05-22 13:57] LABS: Prothrombin Time 11.8 SEC (11.1-13.3)
[2023-05-22 14:05] LABS: IDNOW Serial# 08D9AD1C
[2023-05-22 14:06] LABS: COVID-19 Test Negative (Negative); IDNOW Serial# 152EDE1D; Influenza A Negative (Negative); Influenza B2 Negative (Negative)
[2023-05-22 14:08] LABS: Alanine Aminotransferase 12 U/L (0-31); Albumin Level 3.8 g/dL (3.5-5.0); Alkaline Phosphatase 77 U/L (39-117); Anion Gap 9 (12-20); Aspartate Amino Transferase 18 U/L (5-31); Bilirubin Total 0.4 mg/dL (0.0-1.0); Blood Urea Nitrogen 21 mg/dL (9-16); Calcium 9.4 mg/dL (8.4-10.2); Carbon Dioxide 30 mmol/L (22-29); Chloride 107 mmol/L (96-108); Creatinine Clr Calc Pharmacy 75.1; Estimated Glomerular Filt Rate > 60; Glucose Random 92 mg/dL (60-115); Potassium 3.9 mmol/L (3.3-5.1); Sodium 142 mmol/L (135-145); Total Protein 7.8 g/dL (6.5-8.0)
[2023-05-22 14:17] LABS: Troponin-I High Sensitivity < 2.7 ng/L (<3.5-17.0)
[2023-05-22 15:40] VITALS: BP 106/56; PULSE 64; RESP 18; TEMP 36.7; O2SAT 98
[2023-05-22 18:00] VITALS: BP 122/89; PULSE 63; RESP 14; TEMP 36.8; O2SAT 98
[2023-05-22] MEDS: 0.9 % Sodium Chloride 1,000 ML 999 ML IV (18:20)
[2023-05-22] MEDS: cefTRIAXone sodium 1 GM in 0.9 % Sodium Chloride 50 ML IV (18:20)
[2023-05-22] MEDS: ondansetron HCL 4 MG/2 ML VIAL IVPUSH (18:21)
[2023-05-22] MEDS: Ketorolac Tromethamine 15 MG/ML VIAL IVPUSH (18:21)
[2023-05-22 18:31] LABS: Lactic Acid 0.8 mmol/L (0.5-2.0)
[2023-05-22 18:41] LABS: D Dimer High Sensitivity < 150 NG/ML
[2023-05-22] MEDS: iohexoL 350 MG/ML 100 ML INFUS..BTL IV (18:42)
[2023-05-22] MEDS: Azithromycin 500 MG in 0.9 % Sodium Chloride 250 ML 125 MG IV (19:39)
[2023-05-22 20:16] VITALS: PULSE 65
[2023-05-22 20:49] VITALS: BP 107/60; PULSE 79; RESP 20; O2SAT 94
[2023-05-22 20:56] LABS: Appearance Urine Clear; Color Urine Yellow; Glucose Urine UA Negative (Negative); Leukocyte Esterase Urine Small (1+) (Negative); Nitrite Urine Negative (Negative); PH 6.5 (5.0-9.0); Specific Gravity - Urine >= 1.030 (1.005-1.025); UMIC TRIGGER UACC YES; Urine Blood Trace (Negative); Urine Ketones Negative (Negative); Urine Protein Negative (Neg-Trace)
[2023-05-22 21:01] LABS: Bacteria Urine None Seen (None Seen); Hyaline Casts Urine 0-2 /LPF (0-2); RBC Urine 0-2 /HPF (0-2); Squamous Epithelial Cell Urine 0-2 /HPF (0-2); UACC Culture Trigger YES; WBC Urine 21-50 /HPF (0-5)
== END 2023-05-22 22:31 | disposition home or self-care (01) ==
PROVIDERS: Registered Nurse Emergency; Emergency Provider Emergency Medicine Emergency Medical Services; PCP Internal Medicine
DX: J18.8 Other pneumonia, unspecified organism (principal); R07.81 Pleurodynia; Z11.52 Encounter for screening for COVID-19; R06.02 Shortness of breath; I10 Essential (primary) hypertension; E78.5 Hyperlipidemia, unspecified; Z79.02 Long term (current) use of antithrombotics/antiplatelets; Z79.899 Other long term (current) drug therapy
CPT/HCPCS: 36415; 71046; 71275; 80053; 81001; 83605; 84484; 85025; 85379; 85610; 87040; 87086; 87502; 87635; 93005; 96361; 96365; 96366; 96367; 96375; 99284; 99285; J0456; J0696; J1885; J2405; Q9967

== ENCOUNTER → 2023-05-22 13:01 | Outpatient (BNV) | payer MEDICAID, SELFPAY | PROVIDERS: Emergency Provider Emergency Medicine Emergency Medical Services; PCP Internal Medicine; Visit Provider Internal Medicine Cardiovascular Disease | DX: R94.31 Abnormal electrocardiogram [ECG] [EKG] (principal) | CPT/HCPCS: 93010 ==

== ENCOUNTER 2023-05-26 12:23 | Outpatient (REF) | payer MEDICAID, SELFPAY ==
--- NOTE | ~2023-05-26 | US_ITS ---
EXAMINATION: US PELVIS CLINICAL INFORMATION: Pain COMPARISON: Previous pelvic ultrasound October and CT of the abdomen and pelvis September 2022. TECHNIQUE: Ultrasound of the pelvis is performed using both transabdominal and transvaginal transducers along with Doppler. Transvaginal imaging is performed due to inadequate visualization transabdominally. FINDINGS: The uterus is anteverted and measures 8 x 4 x 5 cm in dimension. Uterine echotexture is heterogeneous. There is a 1.4 x 0.6 x 1.1 cm calcification in the left uterine body probably representing a calcified fibroid. No other focal uterine lesion. Endometrial thickness is normal measuring 0.2 cm. There is trace fluid in the endometrial cavity. There are nabothian cysts in the cervix. The ovaries are not seen. There is no fluid in the pelvis. US/US pelvic and transvaginal IMPRESSION: Heterogeneous uterus. Small calcified left uterine fibroid. Ovaries not seen.
== END 2023-05-26 12:24 | disposition home or self-care (01) ==
LOC: HO.US 12:23
PROVIDERS: PCP Internal Medicine; Visit Provider Advanced Practice Midwife
DX: R10.2 Pelvic and perineal pain (principal); D21.9 Benign neoplasm of connective and other soft tissue, unspecified
CPT/HCPCS: 76830; 76856

== ENCOUNTER 2023-05-27 22:50 | Emergency (ER) | payer MEDICAID, SELFPAY ==
[2023-05-27 22:51] VITALS: BP 145/85; PULSE 98; RESP 18; TEMP 36.4; O2SAT 95; BMI 35.5
--- NOTE | 2023-05-27 23:44 | ED_ITS ---
HPI - Allergic Reaction General Chief complaint: Allergic Reaction Stated complaint: ? allergic reaction Time Seen by Provider: 05/27/23 23:40 Source: patient Mode of arrival: ambulatory Limitations: no limitations History of Present Illness HPI narrative: Patient came with itching over the face with swelling under the lids started just prior to arrival had similar episode few weeks ago for unknown allergic agent patient was just doing the laundry and noticed this no tongue swelling no difficulty in breathing patient took Benadryl 25 mg prior to arrival no change in new medication Related Data Home Medications Medication Instructions Recorded Confirmed albuterol sulfate 2.5 mg/3 mL 2.5 mg inhalation Q4-6H PRN 01/24/20 04/15/23 (0.083 %) solution for nebulization Shortness Of Breath elviteg 150 mg-cob 150 mg-emtricit 1 tab PO QPM 01/24/20 04/15/23 200 mg-tenofo alafenam 10 mg tablet (Genvoya) rosuvastatin 20 mg tablet (Crestor) 20 mg PO DAILY 01/24/20 04/15/23 sertraline 100 mg tablet 100 mg PO DAILY 09/23/21 04/15/23 zolpidem 10 mg tablet 10 mg PO BEDTIME 09/23/21 04/15/23 diclofenac sodium 75 mg 75 mg PO BID 09/09/22 04/15/23 tablet,delayed release meclizine 12.5 mg tablet 12.5 mg PO QID PRN Vertigo 09/09/22 04/15/23 omeprazole 20 mg capsule,delayed 20 mg PO DAILY 03/26/23 04/15/23 release potassium chloride 10 mEq 10 meq PO BID 03/26/23 04/15/23 tablet,extended release Previous Rx's Medication Instructions Recorded ondansetron 4 mg disintegrating 4 mg PO Q6-8H PRN nausea and 10/01/21 tablet vomiting #14 tabs simethicone 180 mg capsule 180 mg PO QID 30 days #120 caps 05/21/22 hydrocortisone 2.5 % topical cream 1 appl TN BID hemorrhoids #30 grams 08/17/22 with perineal applicator (Proctosol HC) furosemide 20 mg tablet (Lasix) 20 mg PO DAILY 30 days #30 tabs 12/02/22 fluticasone furoate 200 1 inh inhalation DAILY 30 days #60 01/08/23 mcg-vilanterol 25 mcg/dose ea inhalation powder (Breo Ellipta) umeclidinium 62.5 mcg/actuation 1 inh inhalation DAILY 30 days #30 01/08/23 blister powder for inhalation ea (Incruse Ellipta) albuterol sulfate 2.5 mg/0.5 mL 5 mg inhalation QID PRN shortness 01/16/23 solution for nebulization of breath or wheezing #30 ea benzonatate 200 mg capsule 200 mg PO TID PRN cough #20 caps 01/16/23 prednisone 20 mg tablet 40 mg (2 x 20 mg) PO DAILY #10 tabs 01/16/23 linaclotide 145 mcg capsule 145 mcg PO QAM #30 caps 02/18/23 (Linzess) nitrofurantoin 100 mg PO BID 7 days #14 caps 03/03/23 monohydrate/macrocrystals 100 mg capsule (Macrobid) phenazopyridine 200 mg tablet 200 mg PO Q8H PRN pain 20 doses 03/22/23 (Pyridium) #20 tabs fosfomycin tromethamine 3 gram 1 packet PO Q OTHER DAY 4 doses #4 03/30/23 oral packet (Monurol) ea nitrofurantoin 100 mg PO DAILY #45 caps 03/30/23 monohydrate/macrocrystals 100 mg capsule (Macrobid) nitrofurantoin macrocrystal 50 mg 50 mg PO QID #90 caps 04/15/23 capsule amoxicillin 500 mg capsule 1,000 mg (2 x 500 mg) PO TID 5 05/22/23 days #30 caps doxycycline hyclate 100 mg tablet 100 mg PO Q12H 5 days #10 tabs 05/22/23 naproxen 500 mg tablet 500 mg PO BID PRN pain 7 days #14 05/22/23 tabs oxycodone 5 mg tablet 5 mg PO Q6H PRN pain #10 tabs 05/22/23 diphenhydramine HCl 25 mg capsule 50 mg (2 x 25 mg) PO Q6-8H PRN 05/28/23 (Benadryl) allergic reaction #30 caps prednisone 20 mg tablet 40 mg (2 x 20 mg) PO DAILY #10 tabs 05/28/23 Allergies Allergy/AdvReac Type Severity Reaction Status Date / Time shellfish derived Allergy Intermediate HIVES, N/V Verified 05/22/23 13:24 Review of Systems Review of Systems: Yes all other systems are reviewed and are negative [facility] Past Medical History Medical History Uterine fibroid Hematuria Fibromyalgia 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 HIV (human immunodeficiency virus infection) Arthritis History of blood transfusion Anemia Hx of renal calculi Difficulty swallowing GERD (gastroesophageal reflux disease) Hepatitis Depression Sleep apnea Asthma Elevated cholesterol HTN (hypertension) Surgical History Hx of dilation and curettage Hx of section Hx of reduction mammoplasty Hx of tubal ligation Hx of cholecystectomy Hx of colonoscopy Family History Family History Mother Breast cancer Father Heart problem Sister Bone cancer Family/Other Diabetes Social History Social History Alcohol intake: current Alcohol intake frequency: does not drink Alcohol type: wine Patient Tobacco Use Status: Former Tobacco user Tobacco use type: Cigarette Cigarette Packs Per Day: 2 Years Smoked: 40+ Smoked in Last 30 Days: No Second Hand Smoke Exposure: No Use of substances other than those prescribed or required for medical reasons: No Advance Directives: No Advance Directives Information Provided: Yes Patient : No Sexual orientation: Straight/Heterosexual Gender identity: Female Physical Exam ED Vital Signs: Vital Signs - 24 hr 05/27/23 22:51 05/28/23 00:03 Temperature 97.6 F Pulse Rate 98 77 Respiratory Rate 18 16 Blood Pressure 145/85 H 123/64 Pulse Oximetry 95 93 Oxygen Delivery Method Room Air Room Air BMI result Body Mass Index 35.5 Appearance: Alert. Oriented X3. No acute distress. Eyes: Swollen infraorbital area ENT: Pharynx normal. Oral Mucosa moist uvula normal Neck: Normal inspection. Neck supple. CVS: Normal heart rate and rhythm. Pulses normal. Respiratory: No respiratory distress. Equal air entry bilateral, no wheezing/rales/rhonchi Abdomen: Soft and nontender. Bowel sounds are present, Skin: Skin warm and dry hives over the face and upper extremity Extremities: No lower extremity edema. No calf tenderness Neuro: Oriented X 3. Medications Administered Discontinued Medications Generic Name Dose Route Start Last Admin Trade Name Freq PRN Reason Stop Dose Admin Dexamethasone 10 mg 05/27/23 23:47 05/28/23 00:00 Dexamethasone 2 Mg Tablet PO 05/27/23 23:48 10 mg ONCE ONE Administration Famotidine 20 mg 05/27/23 23:47 05/28/23 00:00 Famotidine 20 Mg Tablet PO 05/27/23 23:48 20 mg ONCE ONE Administration Hydroxyzine HCl 50 mg 05/27/23 23:47 05/28/23 00:00 Hydroxyzine Hcl 50 Mg Tablet PO 05/27/23 23:48 50 mg ONCE ONE Administration Medical Decision Making Medical Decision Making MDM Narrative: Patient's allergic reaction to unknown agent was given Atarax and steroids in the ER feeling much better discharge patient home on prednisone and Benadryl advised to follow with PCP Discharge Plan Discharge Clinical Impression: Allergic reaction Patient Disposition: Home, Self-Care Instructions: General Allergic Reaction (ED) Additional Instructions: Is not very clear about cause of your allergic reaction Take prednisone and Benadryl as prescribed Follow with PCP for further evaluation Report to the ER if worsening of the rash/shortness of breath/tongue or lip swelling No est? muy rufus la causa de jaeger reacci?n al?rgica. Piedra prednisona y Benadryl seg?n lo prescrito Siga con el PCP para astrid evaluaci?n adicional Informe a la montserrat de emergencias si la erupci?n empeora/dificultad para respirar/hinchaz?n de la lengua o los labios. Prescriptions: New prednisone 20 mg tablet 40 mg PO DAILY Qty: 10 0RF diphenhydramine HCl [Benadryl] 25 mg capsule 50 mg PO Q6-8H PRN (Reason: allergic reaction) Qty: 30 0RF No Action hydrocortisone [Proctosol HC] 2.5 % cream with perineal applicator 1 appl TN BID Qty: 30 6RF Rx Instructions: BE SURE TO INCLUDE RECTAL APPICATOR!! fluticasone furoate-vilanterol [Breo Ellipta] 200-25 mcg/dose blister with device 1 inh inhalation DAILY 30 Days Qty: 60 6RF Incruse Ellipta 62.5 mcg/actuation blister with device 1 inh inhalation DAILY 30 Days Qty: 30 6RF Linzess 145 mcg capsule 145 mcg PO QAM Qty: 30 3RF phenazopyridine [Pyridium] 200 mg tablet 200 mg PO Q8H PRN (Reason: pain) Qty: 20 0RF albuterol sulfate 2.5 mg /3 mL (0.083 %) Solution For Nebulization 2.5 mg INHALATION Q4-6H PRN (Reason: Shortness Of Breath) rosuvastatin [Crestor] 20 mg Tablet 20 mg PO DAILY Genvoya [phone] mg Tablet 1 tab PO QPM ondansetron 4 mg tablet,disintegrating 4 mg PO Q6-8H PRN (Reason: nausea and vomiting) Qty: 14 0RF benzonatate 200 mg capsule 200 mg PO TID PRN (Reason: cough) Qty: 20 0RF prednisone 20 mg tablet 40 mg PO DAILY Qty: 10 0RF albuterol sulfate 2.5 mg/0.5 mL solution for nebulization 5 mg inhalation QID PRN (Reason: shortness of breath or wheezing) Qty: 30 0RF amoxicillin 500 mg capsule 1,000 mg PO TID 5 Days Qty: 30 0RF doxycycline hyclate 100 mg tablet 100 mg PO Q12H 5 Days Qty: 10 0RF oxycodone 5 mg tablet 5 mg PO Q6H PRN (Reason: pain) Qty: 10 0RF Rx Instructions: Patient may request partial refill; Partial Fill upon patient request. naproxen 500 mg tablet 500 mg PO BID PRN (Reason: pain) 7 Days Qty: 14 0RF potassium chloride 10 mEq Tablet Extended Release 10 meq PO BID omeprazole 20 mg Capsule,Delayed Release(Dr/Ec) 20 mg PO DAILY fosfomycin tromethamine [Monurol] 3 gram packet 1 packet PO Q OTHER DAY Qty: 4 0RF Rx Instructions: Take on Wed/Wed//Wednesday nitrofurantoin monohyd/m-cryst [Macrobid] 100 mg capsule 100 mg PO DAILY Qty: 45 0RF Rx Instructions: must administer with a meal/food, After completing the fosfomycin antibiotics, start macrobid daily for 45 days zolpidem 10 mg tablet 10 mg PO BEDTIME sertraline 100 mg tablet 100 mg PO DAILY simethicone 180 mg capsule 180 mg PO QID 30 Days Qty: 120 6RF Rx Instructions: after meals nitrofurantoin monohyd/m-cryst [Macrobid] 100 mg capsule 100 mg PO BID 7 Days Qty: 14 0RF Rx Instructions: must administer with a meal/food nitrofurantoin macrocrystal 50 mg capsule 50 mg PO QID Qty: 90 1RF Rx Instructions: must administer with a meal/food diclofenac sodium 75 mg tablet,delayed release (DR/EC) 75 mg PO BID meclizine 12.5 mg tablet 12.5 mg PO QID PRN (Reason: Vertigo) furosemide [Lasix] 20 mg tablet 20 mg PO DAILY 30 Days Qty: 30 6RF Print Language: Divehi
[2023-05-28] MEDS: Famotidine 20 MG TABLET PO
[2023-05-28] MEDS: hydrOXYzine HCL 50 MG TABLET PO
[2023-05-28] MEDS: dexAMETHasone 2 MG TABLET 10 MG PO
[2023-05-28 00:03] VITALS: BP 123/64; PULSE 77; RESP 16; O2SAT 93
[2023-05-28 01:18] VITALS: BP 117/55; PULSE 70; RESP 16; TEMP 36.7; O2SAT 97
[2023-05-28 07:10] VITALS: BP 116/77; PULSE 68; RESP 14; O2SAT 98
== END 2023-05-28 07:11 | disposition home or self-care (01) ==
PROVIDERS: Emergency Provider Internal Medicine; PCP Internal Medicine
DX: L50.0 Allergic urticaria (principal); Z79.899 Other long term (current) drug therapy
CPT/HCPCS: 99283; 99284; J8540

== ENCOUNTER 2023-06-10 11:09 | Outpatient (AMB) | payer MEDICAID, SELFPAY ==
--- NOTE | 2023-06-10 11:41 | A.OFFVIS_ITS ---
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 The patient is doing well with no complaints. The pathology showed the following: A. Endometrium, biopsy: Strips of benign endometrium; no atypia identified. B. Endocervix, curettage: Small fragments of squamous and endocervical epithelium within normal limits. C. Cervix, 4 o'clock, biopsy: - Low grade squamous intraepithelial les ion (RUDI 1). - Endocervical epithelium within normal limits. D. Cervix, 6 o'clock, biopsy: - Low grade squamous intraepithelial les ion (RUDI 1). - Background inflamed cervical transform ation zone mucosa. E. Cervix, 7 o'clock, biopsy: Mildly inflamed squamous and endocervical mucosa with reactive changes. F. 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 HIV (human immunodeficiency virus infection) Arthritis History of blood transfusion Anemia Hx of renal calculi Difficulty swallowing GERD (gastroesophageal reflux disease) Hepatitis Depression Sleep apnea Asthma Elevated cholesterol HTN (hypertension) Surgical History Hx of dilation and curettage Hx of section Hx of reduction mammoplasty Hx of tubal ligation Hx of cholecystectomy Hx of colonoscopy Family History Mother Breast cancer Father Heart problem Sister Bone cancer Family/Other Diabetes Social History Alcohol intake: current Alcohol intake frequency: does not drink Alcohol type: wine Patient Tobacco Use Status: Former Tobacco user Tobacco use type: Cigarette Cigarette Packs Per Day: 2 Years Smoked: 40+ Second Hand Smoke Exposure: No Sexual orientation: Straight/Heterosexual Gender identity: Female Female Reproductive History Menstrual Age of Menarche: 12 Review of Systems Const All systems reviewed & are unremarkable except as noted in HPI and below Reports as per HPI and Reports no additional complaints GI Reports no additional complaints Reports no additional complaints Physical Exam Vital Signs: Last Vital Signs BP 110/70 06/10/23 11:46 BMI result Body Mass Index 35.1 Assessment & Plan Assessment & Plan (1) Endometrial thickening on ultrasound: Comment: With endometrial fluid Code(s): R93.89 - Abnormal findings on diagnostic imaging of other specified body structures Plan: Discussed with the patient the results of the endometrial biopsy showing inactive endometrium. Discussed with the patient the sensitivity, specificity, positive and negative predictive value, of endometrial biopsy in detecting endometrial pathology including but not limited to endometrial hyperplasia, cancer and other pathology; instructed the patient to call in case vaginal bleeding bleeding , the next step will be to proceed with a diagnostic hysteroscopy/D&C for further endometrial sampling evaluation to rule out endometrial pathology. All questions answered and the patient verbalized understanding and agreed with the plan. (2) Dysplasia of cervix, low grade (RUDI 1): Code(s): N87.0 - Mild cervical dysplasia Plan: Discussed with the patient the pathology results of the colposcopy biopsies & endocervical curettage ( mild dysplasia-RUDI 1). Discussed with the patient the sensitivity specificity, positive and negative predictive value in detecting cervical cancer in addition discussed the regression, persistence and progression rates. Recommended co-testing in 12 months, if cytology and or HPV are abnormal will proceed was colposcopy biopsy and endocervical curettage, if lesions gets worse or stays persistent for 2 years will proceed with loop electric excision procedure. Instructions given to the patient to schedule a co test appointment in 1 year. All questions answered the patient verbalized understanding. Coding Level of Care Code Est Pt Level 3 (89065) Diagnoses Endometrial thickening on ultrasound R93.89 Dysplasia of cervix, low grade (RUDI 1) N87.0
[2023-06-10 11:46] VITALS: BP 110/70; BMI 35.1
== END 2023-06-10 16:10 | disposition home or self-care (01) ==
LOC: HO.HWS 11:09
PROVIDERS: PCP Internal Medicine; Visit Provider Obstetrics & Gynecology
DX: R93.89 Abnormal findings on diagnostic imaging of other specified body structures (principal); N87.0 Mild cervical dysplasia
CPT/HCPCS: 99213

== ENCOUNTER → 2023-06-10 11:09 | Outpatient (BNVA) | payer MEDICAID, SELFPAY | PROVIDERS: PCP Internal Medicine; Visit Provider Obstetrics & Gynecology | DX: N87.0 Mild cervical dysplasia (principal); R93.89 Abnormal findings on diagnostic imaging of other specified body structures | CPT/HCPCS: 99212 ==

== ENCOUNTER 2023-06-14 08:42 | Outpatient (REF) | payer MEDICAID, SELFPAY ==
--- NOTE | ~2023-06-14 | XR_ITS ---
EXAMINATION: XR CHEST CLINICAL INFORMATION: Follow up left lung pneumonia. COMPARISON: CT chest of 05/22/2023. Chest radiographs of 05/22/2023. TECHNIQUE: 2 views of the chest were obtained. FINDINGS: There is no gross pneumothorax. Redemonstration of postsurgical changes with staple lines at the right lung apex and left lung base. S-shaped thoracolumbar scoliosis with multilevel degenerative changes. No gross pleural effusion. Surgical clips in the upper abdomen. Redemonstration of patchy and streaky opacities in the mid and lower left lung as well as mild right basilar opacities with increased volume loss in the lower left lung with atelectasis. XR/XR chest 2V IMPRESSION: Persistent patchy and streaky opacities in the mid and lower left lung as well as mild right basilar opacities. Increased volume loss in the lower left lung with atelectasis.
== END 2023-06-14 08:43 | disposition home or self-care (01) ==
LOC: HO.XRAY 08:42
PROVIDERS: PCP Internal Medicine; Visit Provider Internal Medicine
DX: J18.9 Pneumonia, unspecified organism (principal)
CPT/HCPCS: 71046; 81003; 99212

== ENCOUNTER 2023-06-14 09:18 | Outpatient (AMB) | payer MEDICAID, SELFPAY ==
--- NOTE | 2023-06-14 10:16 | MHC.OFFVIS ---
Intake Intake Visit Reasons: 2W follow up Intake Note: Patient presents today for a follow-up on bilateral nephrolithiasis Meds- Pyridium, Allergies to Antibiotic- No Known Allergies Blood Thinner- None Statistics Teacher Required: Yes Accompanied by: Self / Same As Patient Allergies shellfish derived Allergy (Intermediate, Verified 06/14/23 10:34) HIVES, N/V Medication List - Last Reconciled 06/14/23 by Cornelia Fields MD albuterol sulfate 2.5 mg inhalation Q4-6H PRN albuterol sulfate 5 mg inhalation QID PRN benzonatate 200 mg PO TID PRN diclofenac sodium 75 mg PO BID diphenhydramine HCl (Benadryl) 50 mg (2 x 25 mg) PO Q6-8H PRN [id number]-ihxqg-tenof alafen [phone] mg (Genvoya) 1 tab PO QPM fluticasone furoate-vilanterol 200-25 mcg/dose (Breo Ellipta) 1 inh inhalation DAILY 30 days furosemide (Lasix) 20 mg PO DAILY 30 days hydrocortisone 2.5% (Proctosol HC) 1 appl RI BID linaclotide (Linzess) 145 mcg PO QAM meclizine 12.5 mg PO QID PRN naproxen 500 mg PO BID PRN 7 days nitrofurantoin macrocrystal 50 mg PO QID omeprazole 20 mg PO DAILY ondansetron 4 mg PO Q6-8H PRN potassium chloride ER 10 mEq PO BID prednisone 40 mg (2 x 20 mg) PO DAILY prednisone 40 mg (2 x 20 mg) PO DAILY rosuvastatin (Crestor) 20 mg PO DAILY sertraline 100 mg PO DAILY simethicone 180 mg PO QID 30 days umeclidinium 62.5 mcg/actuation (Incruse Ellipta) 1 inh inhalation DAILY 30 days zolpidem 10 mg PO BEDTIME HPI HPI Comments History of Present Illness Details [place] is a 63-year-old female is being followed for nephrolithiasis, recurrent UTI's, pelvic pain. 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 She states that painful urination has improved. She has a history of bilateral kidney stones she denies gross blood in the urine. Urinalysis today -- leukocytes 1+, blood 1+ Review of chart: 04/15/23-- she is s/p outpatient cystoscopy - findings c/w cystitis follicularis. The patient was started on Macrobid. urine c/s sent reviewed. Certified painter and body mechanic apprentice was present during the visit. The patient states bladder pain is improving. I have discussed continue macrobid antibiotic suppressive therapy. Review of chart approximate 30 pack year smoker with underlying history of HIV on antivirals under the care of [facility], Breast cancer s/p lumpectomy in 2013 and multiple occurrences of hospitalizations for pneumonia, who is followed by Pulmonary. Her past medical history includes nicotine dependency, fibromyalgia CAT scan done on 09/18/22 noting bilateral kidney stones.?--done without IV contrast -- Multiple 1 mm right kidney stones and multiple left kidney stones, the largest measuring 6 mm.? 06/14/2023 Plan: Macrobid 50 mg daily suppressive Abx therapy. 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 HIV (human immunodeficiency virus infection) Arthritis History of blood transfusion Anemia Hx of renal calculi Difficulty swallowing GERD (gastroesophageal reflux disease) Hepatitis Depression Sleep apnea Asthma Elevated cholesterol HTN (hypertension) Surgical History Hx of dilation and curettage Hx of section Hx of reduction mammoplasty Hx of tubal ligation Hx of cholecystectomy Hx of colonoscopy Family History Mother Breast cancer Father Heart problem Sister Bone cancer Family/Other Diabetes Social History Alcohol intake: current Alcohol intake frequency: does not drink Alcohol type: wine Patient Tobacco Use Status: Former Tobacco user Tobacco use type: Cigarette Cigarette Packs Per Day: 2 Years Smoked: 40+ Second Hand Smoke Exposure: No Sexual orientation: Straight/Heterosexual Gender identity: Female Female Reproductive History Menstrual Age of Menarche: 12 Review of Systems Const All systems reviewed & are unremarkable except as noted in HPI and below Reports no additional complaints Eyes Reports no additional complaints ENT Reports no additional complaints Card Denies dyspnea Resp Denies cough and Denies dyspnea GI Reports no additional complaints Reports no additional complaints Musc Reports no additional complaints Skin/Breast Denies rash and Denies unusual bruising Neuro Reports no additional complaints Psych Reports no additional complaints Endo Reports no additional complaints Flaquito/Lymph Reports no additional complaints Aller/Immun Reports no additional complaints Results AMB Urinalysis, Automated UA Leukoctes 70 Og/uL [facility], [facility] on 06/14/23 10:29 UA Nitrite Negative Last Edit by [facility], [facility] on 06/14/23 10: UA Urobilinogen 0.2 mg/dL Last Edit by [facility], [facility] on 06/14/23 10:29 UA Protein 15 mg/dL Last Edit by [facility], [facility] on 06/14/23 10: UA pH 6.0 Last Edit by [facility], [facility] on 06/14/23 10:29 UA Blood 25 [place]/uL Last Edit by [facility], [facility] on 06/14/23 10:29 UA Specific [place] 1.020 Last Edit by [facility], [facility] on 06/14/23 10:29 UA Ketone Negative Last Edit by [facility], [facility] on 06/14/23 10:29 UA Bilirubin 0 mg/dL Last Edit by [facility], [facility] on 06/14/23 10:29 UA Glucose 0 mg/dL Last Edit by [facility], [facility] on 06/14/23 10:29 Results Reviewed Results Reviewed: Laboratory Last Values Urine pH (Auto) 6.0 06/14/23 10: Specific [place] (Auto) 1.020 06/14/23 10: Urine Protein (Auto) 15 mg/dL 06/14/23 10: Glucose (UA)(Auto) 0 mg/dL 06/14/23 10: Urine Ketones (Auto) Negative 06/14/23 10: Urine Blood (Auto) 25 [place]/uL 06/14/23 10:26 Urine Nitrite (Auto) Negative 06/14/23 10: Urine Bilirubin (Auto) 0 mg/dL 06/14/23 10:26 Urine Urobilinogen (Auto) 0.2 mg/dL 06/14/23 10:26 Leukocyte Esterase (Auto) 70 Og/uL 06/14/23 10:26 Assessment & Plan Assessment & Plan (1) Bilateral nephrolithiasis: Code(s): N20.0 - Calculus of kidney (2) Pelvic pain: Code(s): R10.2 - Pelvic and perineal pain (3) Urinary tract infection symptoms: Code(s): R39.9 - Unspecified symptoms and signs involving the genitourinary system (4) Cystitis: Code(s): N30.90 - Cystitis, unspecified without hematuria Plan Macrobid suppressive Abx therapy Monitor kidney stones renal ultrasound and KUB follow-up in 3 months Orders: Orders AMB Urinalysis Automated Today R33.9 - Retention of urine, unspecified XR KUB Today US renal BI Today N20.0 - Calculus of kidney Medications: Changed From nitrofurantoin macrocrystal must administer with a meal/food 50 mg PO QID 90 caps 1RF To nitrofurantoin macrocrystal must administer with a meal/food 50 mg PO DAILY 90 caps 1RF Patient Instructions: The patient had an opportunity to ask questions regarding treatment plan. All questions were answered. Imaging, Laboratory studies and physical exam results were discussed and reviewed in detail. No major barriers to understanding were identified. The patient expressed understanding and agreement with the above treatment plan. The patient is aware they should contact our office by phone for worsening of their current condition or the appearance of new symptoms. Compliance is encouraged with any medications and followup testing that is ordered. It is a privilege to be allowed the opportunity to participate in the urologic care of your patient. If you have any questions or concerns regarding treatment for the above conditions please do not hesitate to contact me. The office telephone contact is [phone]. This note is constructed in part using voice recognition software. While every effort has been made to ensure accuracy weld technician errors may have been included. Yours sincerely, Cornelia Fields MD Coding Level of Care Code Est Pt Level 4 (69123) Diagnoses Bilateral nephrolithiasis N20.0 Pelvic pain R10.2 Urinary tract infection symptoms R39.9 Cystitis N30.90
== END 2023-06-14 10:49 | disposition home or self-care (01) ==
PROVIDERS: PCP Internal Medicine; Visit Provider Urology
DX: N20.0 Calculus of kidney (principal); R10.2 Pelvic and perineal pain; R39.9 Unspecified symptoms and signs involving the genitourinary system; N30.90 Cystitis, unspecified without hematuria; R33.9 Retention of urine, unspecified
CPT/HCPCS: 99214

== ENCOUNTER 2023-06-14 11:42 | Outpatient (REF) | payer MEDICAID, SELFPAY | END 2023-06-14 11:43 | disposition home or self-care (01) | LOC: HO.LAB 11:42 | PROVIDERS: Visit Provider Urology | DX: R39.9 Unspecified symptoms and signs involving the genitourinary system (principal) | CPT/HCPCS: 87086 ==

== ENCOUNTER 2023-07-16 18:15 | Inpatient (IN) | payer MEDICAID, SELFPAY ==
--- NOTE | ~2023-07-16 | CT_ITS ---
EXAMINATION: CT ABDOMEN AND PELVIS WITHOUT CONTRAST CLINICAL INFORMATION: Abdominal and back pain COMPARISON: CT abdomen pelvis September 18, 2022, chest x-ray July 16, 2023 and CTA chest May 22, 2023 TECHNIQUE: Multidetector volumetric imaging was performed from the superior aspect of the liver through the pubic symphysis. Sagittal and coronal reformatted images were obtained on the technologist's workstation. Today's examination is limited due to motion artifact. This CT examination was performed using dose optimization techniques as appropriate, variously including the following: *Automated exposure control *Adjustment of mA and/or kV according to patient size (this includes techniques or standardized protocols for targeted exams where dose is matched to indication/reason for exam; i.e. extremities or head) *Use of iterative reconstruction technique DLP: 695 mGy-cm FINDINGS: Dependent airspace disease within the right lower lobe suggesting infiltrate. The liver is normal in size. The gallbladder is surgically absent. The pancreas, spleen and adrenal glands are unremarkable. Symmetrically sized kidneys. A few sub-5 mm demonstrating calculi the left kidney are again noted. There is no hydronephrosis of either kidney. Dominant approximately 5 cm left renal cyst again noted. Normal caliber loops of small and large bowel. Mild to moderate colonic stool burden. Normal appendix. Normal caliber abdominal aorta. No gross retroperitoneal lymphadenopathy. No ventral abdominal hernia. Mild diffuse bladder wall thickening suspected. Coarsely calcified fibroid noted within otherwise unremarkable appearing uterus. No gross free pelvic fluid. No inguinal lymphadenopathy. Mild diffuse degenerative changes of the spine. CT/CT abdomen pelvis wo IV con IMPRESSION: 1. Today's examination is limited due to motion artifact. 2. Dependent airspace disease within the right lower lobe suggesting infiltrate. 3. Nonobstructing left renal calculi. No hydronephrosis. 4. Mild diffuse bladder wall thickening suspected. Fleischner guidelines were followed.
--- NOTE | ~2023-07-16 | XR_ITS ---
EXAMINATION: XR CHEST CLINICAL INFORMATION: Chest pain. COMPARISON: Chest radiograph 06/14/2023. TECHNIQUE: 2 views of the chest were obtained. FINDINGS: Focal consolidative airspace opacities projecting over the right lower lobe, better visualized on the lateral view. No pleural effusion or pneumothorax. Stable cardiomediastinal silhouette. No acute osseous findings. Right upper quadrant surgical clips. XR/XR chest 2V IMPRESSION: Focal consolidative airspace opacities in the right lower lobe concerning for aspiration or pneumonia. Recommend short-term follow-up after treatment to ensure appropriate resolution.
[2023-07-16 18:53] VITALS: BP 136/102; PULSE 96; RESP 18; TEMP 37.2; O2SAT 91; BMI 34.2
--- NOTE | 2023-07-16 18:54 | ED_ITS ---
HPI - General Adult General Chief complaint: General Medical Stated complaint: Flu like symptoms Time Seen by Provider: 07/16/23 21:18 Source: patient Mode of arrival: ambulatory Limitations: no limitations History of Present Illness HPI narrative: Patient with nausea vomiting dysuria frequency for last 5 days feeling vertiginous feeling also also does have cough mostly dry does have lot of chills feels weak and tired and exhausted Related Data Home Medications Medication Instructions Recorded Confirmed albuterol sulfate 2.5 mg/3 mL 2.5 mg inhalation Q4-6H PRN 01/24/20 06/14/23 (0.083 %) solution for nebulization Shortness Of Breath elviteg 150 mg-cob 150 mg-emtricit 1 tab PO QPM 01/24/20 06/14/23 200 mg-tenofo alafenam 10 mg tablet (Genvoya) rosuvastatin 20 mg tablet (Crestor) 20 mg PO DAILY 01/24/20 06/14/23 sertraline 100 mg tablet 100 mg PO DAILY 09/23/21 06/14/23 zolpidem 10 mg tablet 10 mg PO BEDTIME 09/23/21 06/14/23 diclofenac sodium 75 mg 75 mg PO BID 09/09/22 06/14/23 tablet,delayed release meclizine 12.5 mg tablet 12.5 mg PO QID PRN Vertigo 09/09/22 06/14/23 omeprazole 20 mg capsule,delayed 20 mg PO DAILY 03/26/23 06/14/23 release potassium chloride 10 mEq 10 meq PO BID 03/26/23 06/14/23 tablet,extended release Previous Rx's Medication Instructions Recorded ondansetron 4 mg disintegrating 4 mg PO Q6-8H PRN nausea and 10/01/21 tablet vomiting #14 tabs simethicone 180 mg capsule 180 mg PO QID 30 days #120 caps 05/21/22 hydrocortisone 2.5 % topical cream 1 appl [place] BID hemorrhoids #30 grams 08/17/22 with perineal applicator (Proctosol HC) furosemide 20 mg tablet (Lasix) 20 mg PO DAILY 30 days #30 tabs 12/02/22 fluticasone furoate 200 1 inh inhalation DAILY 30 days #60 01/08/23 mcg-vilanterol 25 mcg/dose ea inhalation powder (Breo Ellipta) umeclidinium 62.5 mcg/actuation 1 inh inhalation DAILY 30 days #30 01/08/23 blister powder for inhalation ea (Incruse Ellipta) albuterol sulfate 2.5 mg/0.5 mL 5 mg inhalation QID PRN shortness 01/16/23 solution for nebulization of breath or wheezing #30 ea benzonatate 200 mg capsule 200 mg PO TID PRN cough #20 caps 01/16/23 prednisone 20 mg tablet 40 mg (2 x 20 mg) PO DAILY #10 tabs 01/16/23 linaclotide 145 mcg capsule 145 mcg PO QAM #30 caps 02/18/23 (Linzess) naproxen 500 mg tablet 500 mg PO BID PRN pain 7 days #14 05/22/23 tabs diphenhydramine HCl 25 mg capsule 50 mg (2 x 25 mg) PO Q6-8H PRN 05/28/23 (Benadryl) allergic reaction #30 caps prednisone 20 mg tablet 40 mg (2 x 20 mg) PO DAILY #10 tabs 05/28/23 nitrofurantoin macrocrystal 50 mg 50 mg PO DAILY #90 caps 06/14/23 capsule sulfamethoxazole 800 1 tab PO BID 7 days #14 tabs 06/16/23 mg-trimethoprim 160 mg tablet (Bactrim DS) Allergies Allergy/AdvReac Type Severity Reaction Status Date / Time shellfish derived Allergy Intermediate HIVES, N/V Verified 07/16/23 18:57 Review of Systems 2 Review of Systems: Yes all other systems are reviewed and are negative [facility] Past Medical History Medical History (Updated 07/17/23 @ 01:40 by Ambrocio Valenzuela MD) Bilateral nephrolithiasis Uterine fibroid Hematuria Fibromyalgia 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 HIV (human immunodeficiency virus infection) Arthritis History of blood transfusion Anemia Hx of renal calculi Difficulty swallowing GERD (gastroesophageal reflux disease) Hepatitis Depression Sleep apnea Asthma Elevated cholesterol HTN (hypertension) Surgical History Hx of dilation and curettage Hx of section Hx of reduction mammoplasty Hx of tubal ligation Hx of cholecystectomy Hx of colonoscopy Family History Family History Mother Breast cancer Father Heart problem Sister Bone cancer Family/Other Diabetes Social History Social History Alcohol intake: current Alcohol intake frequency: does not drink Alcohol type: wine Patient Tobacco Use Status: Former Tobacco user Tobacco use type: Cigarette Cigarette Packs Per Day: 2 Years Smoked: 40+ Smoked in Last 30 Days: No Second Hand Smoke Exposure: No Use of substances other than those prescribed or required for medical reasons: No Advance Directives: No Advance Directives Information Provided: Yes Patient : No Sexual orientation: Straight/Heterosexual Gender identity: Female Physical Exam ED Vital Signs: Vital Signs - 24 hr 07/16/23 18:53 07/16/23 20:45 07/17/23 00:29 Temperature 98.9 F 98.0 F 98.3 F Pulse Rate 96 85 73 Respiratory Rate 18 24 H 24 H Blood Pressure 136/102 H 140/53 H 108/60 Pulse Oximetry 91 L 92 93 Oxygen Delivery Method Room Air Room Air Room Air BMI result Body Mass Index 34.2 Appearance: Alert. Oriented X3. No acute distress. Eyes: No pallor or icterus ENT: Pharynx normal. Oral Mucosa moist Neck: Normal inspection. Neck supple. CVS: Normal heart rate and rhythm. Pulses normal. Respiratory: No respiratory distress. Equal air entry bilateral, no wheezing/rhonchi occasional crackles Abdomen: Soft and nontender. Bowel sounds are present, no mass palpable, no CVA tenderness Skin: Skin warm and dry. Normal skin color. Normal skin turgor. Extremities: No lower extremity edema. No calf tenderness Neuro: Oriented X 3. No motor deficit. Course Course Course Narrative: This is an RME: Additional HPI, ROS, PE not included below will be deferred to primary provider. Patient is a 63-year-old female who presents emergency department for evaluation of Body aches pain, vomiting multiple times daily, vomiting even with water, has been unable to tolerate solids. Denies diarrhea or constipation. She is also having chest pain diffuse anterior pain that worsens with vomiting. And has ?lung pain?. Has kidney pain , Urinary urgency, frequency, dysuria, and hematuria Plan: Labs, EKG, CXR, viral panel, UA Medications Administered Discontinued Medications Generic Name Dose Route Start Last Admin Trade Name Freq PRN Reason Stop Dose Admin Sodium Chloride 1,000 mls @ 999 mls/hr 07/16/23 23:17 07/17/23 00:09 Ns IV 07/17/23 00:17 999 mls/hr .Q1H1M ONE Administration Ceftriaxone Sodium 1 gm/ 50 mls @ 100 mls/hr 07/16/23 23:17 07/17/23 00:45 Sodium Chloride IV 07/16/23 23:46 Infused ONCE ONE Infusion Ondansetron HCl 4 mg 07/16/23 18:56 07/16/23 21:06 Ondansetron Odt 4 Mg Tab.Rapdis TRANSLINGU 07/16/23 18:57 Not Given ONCE ONE Medical Decision Making Medical Decision Making [facility] Narrative: Patient with cough vomiting low-grade fever noticed to have UTI and bilateral pneumonia will admit patient for IV antibiotics Differential Diagnosis Differential Diagnoses: The differential diagnosis associated with the presentation includes Pneumonia/UTI/bacteremia Admission/Observation Consideration of admission/observation: Escalation of care including admission/observation considered Consult Healthcare Provider Management of the patient was discussed with: Hospitalist Lab Data [facility] Lab Attestation statement: I reviewed the patient's lab results. 07/16/23 19:04 07/16/23 19:04 Labs: Lab Results 07/16/23 07/16/23 07/16/23 Range/Units 19:04 22:18 23:48 WBC 16.9 H (4.8-10.8) X10*3/uL RBC 4.35 (4.20-5.50) X10*6/uL Hgb 12.8 (12.0-16.0) g/dl Hct 38.4 (37.0-47.0) % MCV 88.3 (80.0-98.0) fL MCH 29.4 (27.0-33.0) pg MCHC 33.3 (31.0-35.0) g/dl RDW 12.6 (11.0-16.0) % Plt Count 173 (160-400) X10*3/uL MPV 11.6 (9.4-12.3) fL Immature Gran % (Auto) Cancelled Neut % (Auto) Cancelled Lymph % (Auto) Cancelled [place] % (Auto) Cancelled Eos % (Auto) Cancelled Baso % (Auto) Cancelled Lymph # (Auto) Cancelled [place] # (Auto) Cancelled Eos # (Auto) Cancelled Baso # (Auto) Cancelled Abs Immat Gran (auto) Cancelled Absolute Neuts (auto) Cancelled Absolute Nucleated RBC 0.000 (0.0-0.012) X10*3/uL Nucleated RBC % (auto) 0.0 (0.0-0.2) /100WBC Neutrophils % (Manual) 86 H (45-73) % Band Neutrophils % 2 L (3-5) % Lymphocytes % (Manual) 8 L (20-40) % Monocytes % (Manual) 4 (2-11) % Abs Neuts (Manual) 14.9 H (2.0-8.3) X10*3/uL Lymphocytes # (Manual) 1.4 (1.2-4.9) X10*3/uL Monocytes # (Manual) 0.7 (0.1-1.2) X10*3/uL Hypersegmented Neuts PRESENT Platelet Estimate NORMAL (NORMAL) Plt Morphology Comment NORMAL RBC Morphology NORMAL Sodium 137 (135-145) mmol/L Potassium 3.4 (3.3-5.1) mmol/L Chloride 100 (96-108) mmol/L Carbon Dioxide 27 (22-29) mmol/L Anion Gap 13 (12-20) BUN 21 H (9-16) mg/dL Creatinine 1.17 (0.5-1.4) mg/dL Estim Creat Clear Calc 62.2 Estimated GFR 47 Random Glucose 116 H (60-115) mg/dL Lactic Acid 1.0 (0.5-2.0) mmol/L Calcium 9.7 (8.4-10.2) mg/dL Magnesium 2.1 (1.6-2.6) mg/dL Total Bilirubin 1.3 H (0.0-1.0) mg/dL AST 15 (5-31) U/L ALT 11 (0-31) U/L Alkaline Phosphatase 99 (39-117) U/L Troponin I High Sens < 2.7 (<3.5-17.0) ng/L Total Protein 8.4 H (6.5-8.0) g/dL Albumin 3.8 (3.5-5.0) g/dL Lipase 10 (8-78) U/L Urine Color Dark Yellow Urine Appearance Turbid Urine pH 6.0 (5.0-9.0) Ur Specific [place] 1.020 (1.005-1.025) Urine Protein 100 (2+) H (Neg-Trace) mg/dL Urine Glucose (UA) Negative (Negative) mg/dL Urine Ketones Trace (Negative) mg/dL Urine Blood Moderate (2+) H (Negative) Urine Nitrite Positive H (Negative) Ur Leukocyte Esterase Large (3+) H (Negative) Urine RBC 3-5 H (0-2) /HPF Urine WBC >50 H (0-5) /HPF Ur Squamous Epith Cells 11-20 (0-2) /HPF Urine Bacteria 4+ (None Seen) Hyaline Casts 0-2 (0-2) /LPF Influenza Type A (PCR) NEGATIVE (Negative) Influenza Type B (PCR) NEGATIVE (Negative) RSV RNA Qual (PCR) NEGATIVE (Negative) SARS-CoV-2 RNA (RT-PCR) NEGATIVE (Negative) Independent Interpretation I performed an independent interpretation of an: Plain X-Ray Radiology Impression Discussion of test interpretation with radiology: I have reviewed the radiologist's reading. Discharge Plan Discharge Clinical Impression: UTI (urinary tract infection), Pneumonia Patient Disposition: Admitted As Inpatient
--- NOTE | 2023-07-16 18:56 | ECG_ITS ---
Test Reason : CHEST ROGER Blood Pressure : / mmHG Vent. Rate : 092 BPM Atrial Rate : 092 BPM P-R Int : 136 ms QRS Dur : 088 ms QT Int : 352 ms P-R-T Axes : 055 -44 029 degrees QTc Int : 435 ms Normal sinus rhythm Left axis deviation Nonspecific ST abnormality Abnormal ECG When compared with ECG of 22-MAY-2023 13:06, No significant change was found Referred By: Olivia Moraes Electronically Signed By:Dain Bill
[2023-07-16 19:21] LABS: Hematocrit 38.4 % (37.0-47.0); Hemoglobin 12.8 g/dl (12.0-16.0); Mean Corpuscular HGB Conc 33.3 g/dl (31.0-35.0); Mean Corpuscular Hemoglobin 29.4 pg (27.0-33.0); Mean Corpuscular Volume 88.3 fL (80.0-98.0); Mean Platelet Volume 11.6 fL (9.4-12.3); Platelet Count 173 X10*3/uL (160-400); Red Blood Count 4.35 X10*6/uL (4.20-5.50); Red Cell Distribution Width 12.6 % (11.0-16.0); White Blood Count 16.9 X10*3/uL (4.8-10.8)
[2023-07-16 19:29] LABS: Alanine Aminotransferase 11 U/L (0-31); Albumin Level 3.8 g/dL (3.5-5.0); Alkaline Phosphatase 99 U/L (39-117); Anion Gap 13 (12-20); Aspartate Amino Transferase 15 U/L (5-31); Bilirubin Total 1.3 mg/dL (0.0-1.0); Blood Urea Nitrogen 21 mg/dL (9-16); Calcium 9.7 mg/dL (8.4-10.2); Carbon Dioxide 27 mmol/L (22-29); Chloride 100 mmol/L (96-108); Creatinine Clr Calc Pharmacy 62.2; Estimated Glomerular Filt Rate 47; Glucose Random 116 mg/dL (60-115); Lipase 10 U/L (8-78); Magnesium 2.1 mg/dL (1.6-2.6); Potassium 3.4 mmol/L (3.3-5.1); Sodium 137 mmol/L (135-145); Total Protein 8.4 g/dL (6.5-8.0)
[2023-07-16 19:38] LABS: Troponin-I High Sensitivity < 2.7 ng/L (<3.5-17.0)
[2023-07-16 19:43] LABS: Band Neutrophils Percent 2 % (3-5); Lymphocytes Absolute Manual 1.4 X10*3/uL (1.2-4.9); Lymphocytes Percent Manual 8 % (20-40); Monocytes Absolute Manual 0.7 X10*3/uL (0.1-1.2); Monocytes Percent Manual 4 % (2-11); Neutrophils Absolute Manual 14.9 X10*3/uL (2.0-8.3); Neutrophils Percent Manual 86 % (45-73)
[2023-07-16 19:48] LABS: Hypersegmented Neutrophils PRESENT; Platelet Estimate NORMAL (NORMAL); Platelet Morphology Comment NORMAL; RBC Morphology NORMAL
[2023-07-16 19:50] LABS: Influenza A PCR NEGATIVE (Negative); Influenza B PCR NEGATIVE (Negative); Resp Syncy Virus RNA Qual PCR NEGATIVE (Negative); SARS COV2 PCR INHOUSE NEGATIVE (Negative)
[2023-07-16 20:45] VITALS: BP 140/53; PULSE 85; RESP 24; TEMP 36.7; O2SAT 92
--- NOTE | 2023-07-16 20:47 | PC.NURSE ---
Pt ca&ox4, no signs of distress. Pt reports x 5 days of vomiting/chills/dizziness and 10/10 body pain. Pt denies diarrhea Pt states she has been urinating a lot lately and has recurrent UTI's. Plan of care ongoing.
--- NOTE | 2023-07-16 21:06 | PC.NURSE ---
Med Zofran not given, it was ordered while pt in waiting room. Plan of care ongoing.
--- NOTE | 2023-07-16 21:23 | PC.NURSE ---
Pt given bedside commode. Urine requested. Plan of care ongoing.
[2023-07-16 22:22] LABS: Appearance Urine Turbid; Color Urine Dark Yellow; Glucose Urine UA Negative (Negative); Leukocyte Esterase Urine Large (3+) (Negative); Nitrite Urine Positive (Negative); UMIC TRIGGER UACC YES; Urine Blood Moderate (2+) (Negative); Urine Ketones Trace mg/dL (Negative); Urine Protein 100 (2+) mg/dL (Neg-Trace)
[2023-07-16 22:33] LABS: Bacteria Urine 4+ (None Seen); Hyaline Casts Urine 0-2 /LPF (0-2); UACC Culture Trigger YES; WBC Urine >50 /HPF (0-5)
[2023-07-17] MEDS: cefTRIAXone sodium 1 GM in 0.9 % Sodium Chloride 50 ML IV (00:07)
[2023-07-17] MEDS: 0.9 % Sodium Chloride 1,000 ML 999 ML IV (00:09)
[2023-07-17 00:29] VITALS: BP 108/60; PULSE 73; RESP 24; TEMP 36.8; O2SAT 93
--- NOTE | 2023-07-17 01:56 | P.HPHOSP_ITS ---
History of Present Illness Date of Service: 07/17/23 Chief Complaint: Cough This is a 63-year-old female with pertinent history of HIV, gastroesophageal reflux disease, mixed hyperlipidemia, mood disorder, asthma not on home oxygen who presents to the emergency department for evaluation of cough, dysuria, generalized fatigability. Patient is [place]ian speaking and history obtained with the help of regulatory associate. Patient states she has been having symptoms the last 5 days which have been progressive. Her cough is intermittently productive. Has associated dyspnea which is worse with exertion. No wheezing. Reports that she is feeling feverish, has malaise and generalized fatigability. Patient is nauseous and is with poor p.o. intake. Also had episodes of nonbloody emesis. Patient feels like during 1 of the episodes of vomiting, she aspirated. Also feels like she sometimes chokes on saliva or water. Also has burning with urination. Patient is compliant with her anti-retroviral therapy for HIV, her last CD4 count was 351 and viral load undetectable. Admits chest discomfort with his was with deep inspiration. Does have a history of recurrent UTI and pneumonia. No palpitations, abdominal pain, changes in bowel habits. In the emergency department, urine concerning for UTI. Imaging with right-sided pneumonia. WBC count found to be elevated. 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 HIV (human immunodeficiency virus infection) Arthritis History of blood transfusion Anemia Hx of renal calculi Difficulty swallowing GERD (gastroesophageal reflux disease) Hepatitis Depression Sleep apnea Asthma Elevated cholesterol HTN (hypertension) Family History Mother Breast cancer Father Heart problem Sister Bone cancer Family/Other Diabetes Surgical History Hx of dilation and curettage Hx of section Hx of reduction mammoplasty Hx of tubal ligation Hx of cholecystectomy Hx of colonoscopy Social History Alcohol intake: current Alcohol intake frequency: does not drink Alcohol type: wine Patient Tobacco Use Status: Former Tobacco user Tobacco use type: Cigarette Cigarette Packs Per Day: 2 Years Smoked: 40+ Smoked in Last 30 Days: No Second Hand Smoke Exposure: No Use of substances other than those prescribed or required for medical reasons: No Advance Directives: No Advance Directives Information Provided: Yes Patient : No Sexual orientation: Straight/Heterosexual Gender identity: Female Meds Allergies Allergy/AdvReac Type Severity Reaction Status Date / Time shellfish derived Allergy Intermediate HIVES, N/V Verified 07/16/23 18:57 Home Medications Medication Instructions Recorded Confirmed Last Taken Type albuterol sulfate 2.5 mg/3 mL 2.5 mg inhalation Q4-6H PRN 01/24/20 06/14/23 Unknown History (0.083 %) solution for nebulization Shortness Of Breath elviteg 150 mg-cob 150 mg-emtricit 1 tab PO QPM 01/24/20 06/14/23 Unknown History 200 mg-tenofo alafenam 10 mg tablet (Genvoya) rosuvastatin 20 mg tablet (Crestor) 20 mg PO DAILY 01/24/20 06/14/23 Unknown History sertraline 100 mg tablet 100 mg PO DAILY 09/23/21 06/14/23 Unknown History zolpidem 10 mg tablet 10 mg PO BEDTIME 09/23/21 06/14/23 Unknown History diclofenac sodium 75 mg 75 mg PO BID 09/09/22 06/14/23 Unknown History tablet,delayed release meclizine 12.5 mg tablet 12.5 mg PO QID PRN Vertigo 09/09/22 06/14/23 Unknown History omeprazole 20 mg capsule,delayed 20 mg PO DAILY 03/26/23 06/14/23 Unknown History release potassium chloride 10 mEq 10 meq PO BID 03/26/23 06/14/23 Unknown History tablet,extended release Physical Exam 2 Vital Signs and Narrative: Vital Signs: Last Vital Signs Temp 98.3 F 07/17/23 00:29 Pulse 73 07/17/23 00:29 Resp 24 H 07/17/23 00:29 BP 108/60 07/17/23 00:29 Pulse Ox 93 07/17/23 00:29 O2 Del Method Room Air 07/17/23 00:29 BMI result Body Mass Index 34.2 Middle-aged female lying in bed in mild distress Neck supple, no JVD Regular rate and rhythm, S1-S2 heard Tachypnea with right-sided crackles, no wheezing Abdomen soft nontender, no guarding, no rigidity Patient is awake, alert and oriented to self, place, time and person ; no focal motor deficit Psych: Normal mood No pedal edema Results Labs 07/16/23 19:04 07/16/23 19:04 Labs: Laboratory Results - last 24 hr 07/16/23 07/16/23 07/16/23 19:04 22:18 23:48 MCV 88.3 MCH 29.4 MCHC 33.3 RDW 12.6 Plt Count 173 MPV 11.6 Immature Gran % (Auto) Cancelled Neut % (Auto) Cancelled Lymph % (Auto) Cancelled [place] % (Auto) Cancelled Eos % (Auto) Cancelled Baso % (Auto) Cancelled Lymph # (Auto) Cancelled [place] # (Auto) Cancelled Eos # (Auto) Cancelled Baso # (Auto) Cancelled Abs Immat Gran (auto) Cancelled Absolute Neuts (auto) Cancelled Absolute Nucleated RBC 0.000 Nucleated RBC % (auto) 0.0 Neutrophils % (Manual) 86 H Band Neutrophils % 2 L Lymphocytes % (Manual) 8 L Monocytes % (Manual) 4 Abs Neuts (Manual) 14.9 H Lymphocytes # (Manual) 1.4 Monocytes # (Manual) 0.7 Hypersegmented Neuts PRESENT Platelet Estimate NORMAL Plt Morphology Comment NORMAL RBC Morphology NORMAL Anion Gap 13 Estim Creat Clear Calc 62.2 Estimated GFR 47 Random Glucose 116 H Lactic Acid 1.0 Calcium 9.7 Magnesium 2.1 Total Bilirubin 1.3 H AST 15 ALT 11 Alkaline Phosphatase 99 Troponin I High Sens < 2.7 Total Protein 8.4 H Albumin 3.8 Lipase 10 Urine Color Dark Yellow Urine Appearance Turbid Urine pH 6.0 Ur Specific [place] 1.020 Urine Protein 100 (2+) H Urine Glucose (UA) Negative Urine Ketones Trace Urine Blood Moderate (2+) H Urine Nitrite Positive H Ur Leukocyte Esterase Large (3+) H Urine RBC 3-5 H Urine WBC >50 H Ur Squamous Epith Cells 11-20 Urine Bacteria 4+ Hyaline Casts 0-2 Influenza Type A (PCR) NEGATIVE Influenza Type B (PCR) NEGATIVE RSV RNA Qual (PCR) NEGATIVE SARS-CoV-2 RNA (RT-PCR) NEGATIVE Imaging Radiologist's Impressions: Impressions Chest X-Ray 07/16/23 19:14 IMPRESSION: Focal consolidative airspace opacities in the right lower lobe concerning for aspiration or pneumonia. Recommend short-term follow-up after treatment to ensure appropriate resolution. Assessment and Plan (1) Pneumonia: Status: Acute (2) UTI (urinary tract infection): Status: Acute Plan This is a 63-year-old female with pertinent history of HIV, gastroesophageal reflux disease, mixed hyperlipidemia, mood disorder, asthma not on home oxygen who presents to the emergency department for evaluation of cough, dysuria, generalized fatigability. #. Sepsis due to aspiration pneumonia + UTI: Resuscitated with IV crystalloids. Lactic acid blood culture obtained. Sputum culture and urine culture pending. Initiating empiric IV antibiotics. Noted previous urine culture with ESBL E coli. Concern for aspiration, will keep patient NPO and consulting speech #. HIV: Patient is immunocompetent with last viral load undetectable and last CD4 count 351. On Genvoya #. Gastroesophageal reflux disease due to PPI #. Mixed hyperlipidemia: On statin #. Mood disorder: Continue home mood stabilizers #. Asthma: Not on home oxygen. No exacerbation during admission. Continue home inhaler Med rec pending DVT prophylaxis: Lovenox Full code Admit as inpatient and will require two night minimum hospital stay for IV antibiotics (as above), which is not possible in a lesser acute setting. Quality Stroke Does the patient have a stroke diagnosis?: No VTE Prior VTE?: No VTE Risk Level:: Medical - moderate - high VTE Device Contraindication: Treatment Not Indicated VTE Drug Contraindication: N/A - Med Ordered
[2023-07-17 05:12] LABS: MANUAL DIFF FLAG NO
[2023-07-17 05:16] LABS: Basophils Percent Auto 0.2 % (0-2); Eosinophils Percent Auto 0.1 % (0-4); Hematocrit 35.5 % (37.0-47.0); Hemoglobin 11.9 g/dl (12.0-16.0); Imm Gran Abs Auto 0.15 X10*3/uL (0.00-0.03); Imm Gran Pct Auto 1.1 % (0.0-0.4); Lymphocytes Percent Auto 6.8 % (20-40); Mean Corpuscular HGB Conc 33.5 g/dl (31.0-35.0); Mean Corpuscular Hemoglobin 29.1 pg (27.0-33.0); Mean Corpuscular Volume 86.8 fL (80.0-98.0); Mean Platelet Volume 11.5 fL (9.4-12.3); Monocytes Absolute Auto 0.8 X10*3/uL (0.1-1.2); Monocytes Percent Auto 5.5 % (2-11); Neutrophils Percent Auto 86.3 % (45-73); Platelet Count 152 X10*3/uL (160-400); Red Blood Count 4.09 X10*6/uL (4.20-5.50); Red Cell Distribution Width 12.8 % (11.0-16.0); White Blood Count 13.9 X10*3/uL (4.8-10.8)
[2023-07-17 05:32] LABS: Anion Gap 13 (12-20); Blood Urea Nitrogen 20 mg/dL (9-16); Calcium 9.3 mg/dL (8.4-10.2); Carbon Dioxide 25 mmol/L (22-29); Chloride 104 mmol/L (96-108); Creatinine Clr Calc Pharmacy 72.2; Estimated Glomerular Filt Rate 56; Glucose Random 96 mg/dL (60-115); Potassium 3.6 mmol/L (3.3-5.1); Sodium 138 mmol/L (135-145)
[2023-07-17 05:42] VITALS: BP 107/55; PULSE 78; RESP 17; TEMP 36.4; O2SAT 96
[2023-07-17] MEDS: Enoxaparin Sodium 40 MG/0.4 ML SYRINGE SUBCUT (05:47)
--- NOTE | 2023-07-17 08:09 | PHA.MEDREC ---
Pharmacy Consult ? Medication Reconciliation Pharmacy has completed the medication reconciliation. 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 OF NOTE: patient confirms to be on breo, advair and flovent. When looking further into patients profile looks that patient was on advair and was hospitalized here therefore advair was interchanged to breo and patient was then discharged on breo. Will only keep flovent and breo on medication list to prevent further duplication. Also patient confirmed to be taking her sertraline only as needed.
[2023-07-17] MEDS: 0.9 % Sodium Chloride Flush 3 ML SYRINGE IVFLUSH ×3 (09:58→20:40)
[2023-07-17] MEDS: Acetaminophen 325 MG TABLET 650 MG PO ×2 (10:14→20:39)
[2023-07-17 10:15] VITALS: BP 126/72; PULSE 74; RESP 16; TEMP 37; O2SAT 93
--- NOTE | 2023-07-17 11:22 | PC.NURSE ---
Patient passed bedside nursing swallow MD josue notified, pt given PO tylenol for left leg pain with no signs of aspiration, waiting for MD to upgrade diet from NPO
--- NOTE | 2023-07-17 11:26 | P.PNIM_ITS ---
Subjective Subjective Date of Service: 07/17/23 Review of Systems Follow up aspiration pna no pain or sob Physical Exam 2 Vital Signs: Vital Signs: Last Vital Signs Temp 98.6 F 07/17/23 10:15 Pulse 74 07/17/23 10:15 Resp 16 07/17/23 10:15 BP 126/72 07/17/23 10:15 Pulse Ox 93 07/17/23 10:15 O2 Del Method Room Air 07/17/23 10:15 BMI result Body Mass Index 30.0 Appearing in no acute distress lung sounds are clear to auscultation heart regular rate rhythm, clear S1, S2 positive bowel sounds, abdomen is soft, nontender neuro patient is alert x3, no focal deficits Objective Data Active Medications Acetaminophen (Acetaminophen 325 Mg Tablet) 650 mg PO Q6H PRN PRN Reason: Pain, Mild (Pain Scale 1-3) Last Admin: 07/17/23 10:14 Dose: 650 mg Documented By: KEVAN Enoxaparin Sodium (Enoxaparin Sodium 40 Mg/0.4 Ml Syringe) 40 mg SUBCUT QD@0600 [facility] Last Admin: 07/17/23 05:47 Dose: 40 mg Documented By: MICHELLE Meropenem 1 gm/ Sodium (Chloride) 100 mls @ 200 mls/hr IV Q8H [facility] Last Infusion: 07/17/23 10:31 Dose: Infused Documented By: KEVAN Melatonin (Melatonin 3 Mg Tablet) 6 mg PO BEDTIME PRN PRN Reason: Insomnia Ondansetron HCl (Ondansetron Hcl 4 Mg/2 Ml Vial) 4 mg IVPUSH Q8H PRN PRN Reason: Nausea and Vomiting Sodium Chloride (0.9 % Sodium Chloride Flush 3 Ml Syringe) 3 ml IVFLUSH QSHIFT [facility] Last Admin: 07/17/23 09:58 Dose: 3 ml Documented By: KEVAN Labs 07/17/23 05:07 07/17/23 05:07 Labs: Laboratory Results - last 24 hr 07/16/23 07/16/23 07/16/23 19:04 22:18 23:48 MCV 88.3 MCH 29.4 MCHC 33.3 RDW 12.6 Plt Count 173 MPV 11.6 Immature Gran % (Auto) Cancelled Neut % (Auto) Cancelled Lymph % (Auto) Cancelled [place]oula % (Auto) Cancelled Eos % (Auto) Cancelled Baso % (Auto) Cancelled Lymph # (Auto) Cancelled [place]oula # (Auto) Cancelled Eos # (Auto) Cancelled Baso # (Auto) Cancelled Abs Immat Gran (auto) Cancelled Absolute Neuts (auto) Cancelled Absolute Nucleated RBC 0.000 Nucleated RBC % (auto) 0.0 Neutrophils % (Manual) 86 H Band Neutrophils % 2 L Lymphocytes % (Manual) 8 L Monocytes % (Manual) 4 Abs Neuts (Manual) 14.9 H Lymphocytes # (Manual) 1.4 Monocytes # (Manual) 0.7 Hypersegmented Neuts PRESENT Platelet Estimate NORMAL Plt Morphology Comment NORMAL RBC Morphology NORMAL Anion Gap 13 Estim Creat Clear Calc 62.2 Estimated GFR 47 Random Glucose 116 H Lactic Acid 1.0 Calcium 9.7 Magnesium 2.1 Total Bilirubin 1.3 H AST 15 ALT 11 Alkaline Phosphatase 99 Troponin I High Sens < 2.7 Total Protein 8.4 H Albumin 3.8 Lipase 10 Urine Color Dark Yellow Urine Appearance Turbid Urine pH 6.0 Ur Specific [place] 1.020 Urine Protein 100 (2+) H Urine Glucose (UA) Negative Urine Ketones Trace Urine Blood Moderate (2+) H Urine Nitrite Positive H Ur Leukocyte Esterase Large (3+) H Urine RBC 3-5 H Urine WBC >50 H Ur Squamous Epith Cells 11-20 Urine Bacteria 4+ Hyaline Casts 0-2 Influenza Type A (PCR) NEGATIVE Influenza Type B (PCR) NEGATIVE RSV RNA Qual (PCR) NEGATIVE SARS-CoV-2 RNA (RT-PCR) NEGATIVE 07/17/23 05:07 MCV 86.8 MCH 29.1 MCHC 33.5 RDW 12.8 Plt Count 152 L MPV 11.5 Immature Gran % (Auto) 1.1 H Neut % (Auto) 86.3 H Lymph % (Auto) 6.8 L [place] % (Auto) 5.5 Eos % (Auto) 0.1 Baso % (Auto) 0.2 Lymph # (Auto) 1.0 L [place] # (Auto) 0.8 Eos # (Auto) 0.0 Baso # (Auto) 0.0 Abs Immat Gran (auto) 0.15 H Absolute Neuts (auto) 12.0 H Absolute Nucleated RBC 0.000 Nucleated RBC % (auto) 0.0 Neutrophils % (Manual) Band Neutrophils % Lymphocytes % (Manual) Monocytes % (Manual) Abs Neuts (Manual) Lymphocytes # (Manual) Monocytes # (Manual) Hypersegmented Neuts Platelet Estimate Plt Morphology Comment RBC Morphology Anion Gap 13 Estim Creat Clear Calc 72.2 Estimated GFR 56 Random Glucose 96 Lactic Acid Calcium 9.3 Magnesium Total Bilirubin AST ALT Alkaline Phosphatase Troponin I High Sens Total Protein Albumin Lipase Urine Color Urine Appearance Urine pH Ur Specific [place] Urine Protein Urine Glucose (UA) Urine Ketones Urine Blood Urine Nitrite Ur Leukocyte Esterase Urine RBC Urine WBC Ur Squamous Epith Cells Urine Bacteria Hyaline Casts Influenza Type A (PCR) Influenza Type B (PCR) RSV RNA Qual (PCR) SARS-CoV-2 RNA (RT-PCR) Microbiology Microbiology Results: Microbiology 07/16/23 Unknown Urine Culture - Preliminary Urine clean catch - Urine sow top Gram negative taylor Assessment and Plan (1) Pneumonia: Status: Acute (2) UTI (urinary tract infection): Status: Acute Plan 63-year-old female with pertinent history of HIV, gastroesophageal reflux disease, mixed hyperlipidemia, mood disorder, asthma not on home oxygen who presents to the emergency department for evaluation of cough, dysuria, generalized fatigability. Sepsis due to aspiration pneumonia +GNR UTI Resuscitated with IV crystalloids. IV meropenem Noted previous urine culture with ESBL E coli. Diet advanced HIV Patient is immunocompetent with last viral load undetectable and last CD4 count 351. On Genvoya Gastroesophageal reflux disease PPI Mixed hyperlipidemia On statin Mood disorder Continue home mood stabilizers Asthma Not on home oxygen. No exacerbation during admission. Continue home inhaler DVT prophylaxis: Lovenox Attending Dr. Barnard Full code continue hospital stay for IV antibiotics (as above), which is not possible in a lesser acute setting. Quality Stroke Does the patient have a stroke diagnosis?: No VTE Prior VTE?: No VTE Risk Level:: Medical - moderate - high VTE Device Contraindication: Treatment Not Indicated VTE Drug Contraindication: N/A - Med Ordered
--- NOTE | 2023-07-17 11:51 | PC.NURSE ---
patient was bladder scanned at 0845 for 341ml of urine, Dr Vallejo notified and ordered to straight cath, pt was straight cathed for 400ml of dark benji urine and a [place] catheter was then placed, pt was bladder scanned again to confirm bladder was emptied and scan shower 0ml. Patient tolerated well.
--- NOTE | 2023-07-17 14:08 | HE.PHANOTE ---
Contacted prescriber about sertraline being ordered as prn mood, medication is not a prn medication. Patient states only takes it as needed so prescriber would like to order it this way.
[2023-07-17] MEDS: Dicyclomine HCl 10 MG CAPSULE 20 MG PO ×2 (14:49→20:39)
[2023-07-17 15:08] VITALS: BP 127/60; PULSE 66; RESP 16; TEMP 37.1; O2SAT 92
[2023-07-17 19:18] VITALS: BP 113/57; PULSE 66; RESP 17; TEMP 36.7; O2SAT 92
[2023-07-17] MEDS: Fluticasone Propionate 100 MCG BLST.W.DEV 2 PUFF INHALE (20:19)
[2023-07-17 20:20] VITALS: PULSE 66; RESP 16; O2SAT 92
[2023-07-17] MEDS: NaPROXEN 500 MG TABLET PO (20:39)
[2023-07-17] MEDS: Zolpidem Tartrate 5 MG TABLET PO (20:39)
[2023-07-18] VITALS (7 sets, daily range): BP systolic 100–126; BP diastolic 56–66; PULSE 65–78; RESP 16–18; TEMP 36.1–37.2; O2SAT 92–96
[2023-07-18] MEDS: Enoxaparin Sodium 40 MG/0.4 ML SYRINGE SUBCUT (05:50)
[2023-07-18] MEDS: Omeprazole 20 MG CAPSULE.DR PO (05:50)
[2023-07-18] MEDS: Fluticasone Propionate 100 MCG BLST.W.DEV 2 PUFF INHALE ×2 (07:39→20:38)
[2023-07-18] MEDS: Fluticasone/Vilanterol 200/25 BLST.W.DEV 1 PUFF INHALE (07:39)
--- NOTE | 2023-07-18 09:01 | P.PNIM_ITS ---
Subjective Subjective Date of Service: 07/18/23 Review of Systems Follow up aspiration pna no pain or sob c/o lower back pain Physical Exam 2 Vital Signs: Vital Signs: Last Vital Signs Temp 97.7 F 07/18/23 07:50 Pulse 65 07/18/23 07:50 Resp 16 07/18/23 07:50 BP 110/60 07/18/23 07:50 Pulse Ox 92 07/18/23 07:50 O2 Del Method Room Air 07/18/23 07:50 BMI result Body Mass Index 30.0 Appearing in no acute distress lung sounds are clear to auscultation heart regular rate rhythm, clear S1, S2 positive bowel sounds, abdomen is soft, nontender neuro patient is alert x3, no focal deficits Objective Data Active Medications Acetaminophen (Acetaminophen 325 Mg Tablet) 650 mg PO Q6H PRN PRN Reason: Pain, Mild (Pain Scale 1-3) Last Admin: 07/17/23 20:39 Dose: 650 mg Documented By: DENIS Atorvastatin Calcium (Atorvastatin Calcium 80 Mg Tablet) 80 mg PO DAILY [facility] Dicyclomine HCl (Dicyclomine Hcl 10 Mg Capsule) 20 mg PO TID [facility] Last Admin: 07/17/23 20:39 Dose: 20 mg Documented By: DENIS Enoxaparin Sodium (Enoxaparin Sodium 40 Mg/0.4 Ml Syringe) 40 mg SUBCUT QD@0600 [facility] Last Admin: 07/18/23 05:50 Dose: 40 mg Documented By: DENIS Fluticasone Propionate (Fluticasone Propionate 100 Mcg Blst.W.Dev) 2 puff INHALE RBID [facility] Last Admin: 07/18/23 07:39 Dose: 2 puff Documented By: GERARDO Fluticasone/Vilanterol (Fluticasone/Vilanterol 200/25 Blst.W.Dev) 1 puff INHALE RDAILY [facility] Last Admin: 07/18/23 07:39 Dose: 1 puff Documented By: GERARDO Furosemide (Furosemide 20 Mg Tablet) 20 mg PO DAILY [facility]; Protocol Meropenem 1 gm/ Sodium (Chloride) 100 mls @ 200 mls/hr IV Q8H [facility] Last Infusion: 07/18/23 02:03 Dose: Infused Documented By: DENIS Meclizine HCl (Meclizine Hcl 12.5 Mg Tablet) 12.5 mg PO TID PRN PRN Reason: Vertigo Melatonin (Melatonin 3 Mg Tablet) 6 mg PO BEDTIME PRN PRN Reason: Insomnia Naproxen (Naproxen 500 Mg Tablet) 500 mg PO BID [facility] Last Admin: 07/17/23 20:39 Dose: 500 mg Documented By: DENIS Non-Formulary Medication (Hpexqtn-Rbl-Hiobf-Tenof Alafen [Genvoya]) 1 tab PO DAILY [facility] Non-Formulary Medication (Linaclotide [Linzess]) 145 mcg PO DAILY [facility] Omeprazole (Omeprazole 20 Mg Capsule.) 20 mg PO DAILY@0630 [facility] Last Admin: 07/18/23 05:50 Dose: 20 mg Documented By: DENIS Ondansetron HCl (Ondansetron Hcl 4 Mg/2 Ml Vial) 4 mg IVPUSH Q8H PRN PRN Reason: Nausea and Vomiting Sertraline HCl (Sertraline Hcl 100 Mg Tablet) 100 mg PO DAILY PRN PRN Reason: mood Sodium Chloride (0.9 % Sodium Chloride Flush 3 Ml Syringe) 3 ml IVFLUSH QSHIFT [facility] Last Admin: 07/17/23 20:40 Dose: 3 ml Documented By: DENIS Zolpidem Tartrate (Zolpidem Tartrate 5 Mg Tablet) 5 mg PO BEDTIME [facility] Last Admin: 07/17/23 20:39 Dose: 5 mg Documented By: DENIS Labs 07/17/23 05:07 07/17/23 05:07 Microbiology Microbiology Results: Microbiology 07/17/23 00:06 Blood Culture - Preliminary Blood - Venous No growth after 24 hours. 07/16/23 23:48 Blood Culture - Preliminary Blood - Venous No growth after 24 hours. 07/16/23 Unknown Urine Culture - Preliminary Urine clean catch - Urine swo top Gram negative taylor Assessment and Plan (1) Pneumonia: Status: Acute (2) UTI (urinary tract infection): Status: Acute Plan 63-year-old female with pertinent history of HIV, gastroesophageal reflux disease, mixed hyperlipidemia, mood disorder, asthma not on home oxygen who presents to the emergency department for evaluation of cough, dysuria, generalized fatigability. Sepsis due to aspiration pneumonia +GNR UTI Sepsis resolved IV meropenem Noted previous urine culture with ESBL E coli. Diet advanced urine cx pending HIV Patient is immunocompetent with last viral load undetectable and last CD4 count 351. On Genvoya Gastroesophageal reflux disease PPI Mixed hyperlipidemia On statin Mood disorder Continue home mood stabilizers Asthma Not on home oxygen. No exacerbation during admission. Continue home inhaler DVT prophylaxis: Lovenox Attending Dr. Barnard Full code continue hospital stay for IV antibiotics (as above), which is not possible in a lesser acute setting. Quality Stroke Does the patient have a stroke diagnosis?: No VTE Prior VTE?: No VTE Risk Level:: Medical - moderate - high VTE Device Contraindication: Treatment Not Indicated VTE Drug Contraindication: N/A - Med Ordered
[2023-07-18] MEDS: NaPROXEN 500 MG TABLET PO ×2 (10:13→20:12)
[2023-07-18] MEDS: Dicyclomine HCl 10 MG CAPSULE 20 MG PO ×3 (10:13→20:13)
[2023-07-18] MEDS: Atorvastatin Calcium 80 MG TABLET PO (10:15)
[2023-07-18] MEDS: 0.9 % Sodium Chloride Flush 3 ML SYRINGE IVFLUSH ×2 (10:15→17:25)
[2023-07-18] MEDS: Furosemide 20 MG TABLET PO (10:15)
[2023-07-18] MEDS: Meclizine HCl 12.5 MG TABLET PO (10:35)
--- NOTE | 2023-07-18 11:39 | ECG_ITS ---
Test Reason : chest pain Blood Pressure : / mmHG Vent. Rate : 066 BPM Atrial Rate : 066 BPM P-R Int : 156 ms QRS Dur : 094 ms QT Int : 386 ms P-R-T Axes : 075 -36 028 degrees QTc Int : 404 ms Normal sinus rhythm Left axis deviation Nonspecific ST abnormality Abnormal ECG When compared with ECG of 16-JUL-2023 18:58, No significant change was found Referred By: Whit Sheldon Electronically Signed By:AZEEM FLANAGAN MD
--- NOTE | 2023-07-18 16:24 | MHC.CM.PN ---
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
[2023-07-18] MEDS: Zolpidem Tartrate 5 MG TABLET PO (20:12)
[2023-07-19] MEDS: 0.9 % Sodium Chloride Flush 3 ML SYRINGE IVFLUSH ×3 (00:43→23:36)
[2023-07-19 02:58] VITALS: BP 114/59; PULSE 64; RESP 18; TEMP 36.1; O2SAT 96
[2023-07-19] MEDS: Omeprazole 20 MG CAPSULE.DR PO (06:38)
[2023-07-19] MEDS: Enoxaparin Sodium 40 MG/0.4 ML SYRINGE SUBCUT (06:39)
[2023-07-19 07:26] VITALS: BP 122/69; PULSE 68; RESP 18; TEMP 36.7; O2SAT 95
[2023-07-19 07:41] VITALS: PULSE 68; RESP 18; O2SAT 97
[2023-07-19] MEDS: Fluticasone Propionate 100 MCG BLST.W.DEV 2 PUFF INHALE ×2 (07:41→19:47)
[2023-07-19] MEDS: Fluticasone/Vilanterol 200/25 BLST.W.DEV 1 PUFF INHALE (07:41)
[2023-07-19] MEDS: Dicyclomine HCl 10 MG CAPSULE 20 MG PO ×3 (09:18→20:55)
[2023-07-19] MEDS: NaPROXEN 500 MG TABLET PO ×2 (09:19→20:55)
[2023-07-19] MEDS: Furosemide 20 MG TABLET PO (09:19)
[2023-07-19] MEDS: Atorvastatin Calcium 80 MG TABLET PO (09:19)
[2023-07-19] MEDS: oxyCODONE HCl Immed Release 5 MG TABLET PO ×3 (09:22→20:56)
--- NOTE | 2023-07-19 11:17 | P.DS_ITS ---
DS: Providers Provider Date of Service: 07/20/23 Date of admission: 07/17/23 01:55 Primary care physician: Veronica Rebolledo MD Consults: 07/18/23 11:18 Consult to Infectious Diseases Routine Consulting Provider: [facility] [place] [facility] [place] Disease Reason for consultation: ESBL UTI DS: Diagnosis Discharge Diagnosis (1) Pneumonia: Status: Acute (2) UTI (urinary tract infection): Status: Acute DS: Summary Hospital Course Hospital Course: History and physical as per admitting provider. This is a 63-year-old female with pertinent history of HIV, gastroesophageal reflux disease, mixed hyperlipidemia, mood disorder, asthma not on home oxygen who presents to the emergency department for evaluation of cough, dysuria, generalized fatigability. Patient is [place] speaking and history obtained with the help of director workers compensation. Patient states she has been having symptoms the last 5 days which have been progressive. Her cough is intermittently productive. Has associated dyspnea which is worse with exertion. No wheezing. Reports that she is feeling feverish, has malaise and generalized fatigability. Patient is nauseous and is with poor p.o. intake. Also had episodes of nonbloody emesis. Patient feels like during 1 of the episodes of vomiting, she aspirated. Also feels like she sometimes chokes on saliva or water. Also has burning with urination. Patient is compliant with her anti-retroviral therapy for HIV, her last CD4 count was 351 and viral load undetectable. Admits chest discomfort with his was with deep inspiration. Does have a history of recurrent UTI and pneumonia. No palpitations, abdominal pain, changes in bowel habits. In the emergency department, urine concerning for UTI. Imaging with right-sided pneumonia. WBC count found to be elevated. 63-year-old woman treated for sepsis secondary to aspiration pneumonia and ESBL UTI. Treated with IV meropenem. Urine culture finalized with ESBL. Discussed case with Infectious Disease with recommendation for Bactrim for total 10 days. Also sent home with Ceftin for a total of 5 days for pneumonia. Patient may use Robitussin or Mucinex as needed, a few days of oxycodone for or back pain. She can follow-up with Urology but abdominal CT did not show any hydronephrosis or obstructing renal calculi. Sepsis has resolved. Plan is for patient to be discharged home. Patient is in agreement. HIV. Continue Genvoya. Last CD4 count 351 GERD. Continue PPI Hyperlipidemia. Continue statin Mental health. Continue mood stabilizers Asthma. No exacerbation during hospitalization. Continue home inhalers Time Attestation Discharge Coordination Time (in mins): 45 Quality: Safe Use of Opioids Does Pt have an Active Cancer Diagnosis on the Problem List?: No Quality: Stroke Does the patient have a stroke diagnosis?: No Physical Exam Vital Signs: Vital Signs: Last Vital Signs Temp 98.1 F 07/19/23 07:26 Pulse 68 07/19/23 07:41 Resp 18 07/19/23 07:41 BP 122/69 07/19/23 07:26 Pulse Ox 95 07/19/23 07:26 O2 Del Method Room Air 07/19/23 07:26 BMI result Body Mass Index 30.0 Appearing in no acute distress head is normocephalic atraumatic eyes pupils are PERRLA sclera is anicteric mouth throat mucous membranes are intact and moist neck is supple no lymphadenopathy, no JVD noted lung sounds are clear to auscultation heart regular rate rhythm, clear S1, S2 positive bowel sounds, abdomen is soft, nontender neuro patient is alert x3, no focal deficits DS: Data Data Completed and Pending Labs on day of discharge: Preliminary micro results at discharge 07/17/23 00:06 Blood Culture - Preliminary Blood - Venous No growth after 48 hours. 07/16/23 23:48 Blood Culture - Preliminary Blood - Venous No growth after 48 hours. Discharge Plan Discharge Anticipated Discharge Date/Time: 07/20/23 07:49 Patient Disposition: Home Health Service Discharge Diagnosis: ESBL UTI sepsis aspiration pneumonia Referrals: Veronica Rebolledo MD [Primary Care Provider] - 1 Week Percy Strong MD [Physician] - 03/01/24 10:00 am (Scheduled appointment ) Discharge Medications: New oxycodone 5 mg Tablet 5 mg PO Q6H PRN (Reason: Pain, Moderate(Pain Scale 4-6)) Qty: 16 0RF Rx Instructions: Partial Fill upon patient request. sulfamethoxazole-trimethoprim [Bactrim DS] 800-160 mg tablet 1 tab PO BID 10 Days Qty: 20 0RF cefuroxime axetil 500 mg tablet 500 mg PO BID 4 Days Qty: 8 0RF guaifenesin [Mucinex] 600 mg tablet extended release 12hr 600 mg PO Q12H PRN (Reason: cough) 3 Days Qty: 6 0RF loratadine 10 mg Tablet 10 mg PO DAILY Qty: 30 0RF Continued fluticasone furoate-vilanterol [Breo Ellipta] 200-25 mcg/dose blister with device 1 inh inhalation DAILY 30 Days Qty: 60 6RF Linzess 145 mcg capsule 145 mcg PO QAM Qty: 30 3RF ondansetron 4 mg tablet,disintegrating 4 mg PO Q6-8H PRN (Reason: nausea and vomiting) Qty: 14 0RF Genvoya [phone] mg tablet 1 tab PO QAM Rx Instructions: with breakfast albuterol sulfate 2.5 mg /3 mL (0.083 %) Solution For Nebulization 2.5 mg INHALATION Q4-6H PRN (Reason: Shortness Of Breath) Qty: 75 0RF meloxicam 15 mg tablet 15 mg PO DAILY Qty: 30 0RF sertraline 100 mg tablet 100 mg PO DAILY PRN (Reason: mood) Qty: 30 0RF meclizine 12.5 mg tablet 12.5 mg PO TID PRN (Reason: Vertigo) Qty: 12 0RF dicyclomine 20 mg tablet 20 mg PO TID Qty: 90 0RF omeprazole 20 mg Capsule,Delayed Release(Dr/Ec) 20 mg PO DAILY Qty: 30 0RF furosemide 20 mg tablet 20 mg PO DAILY 30 Days Qty: 30 6RF fluticasone propionate 110 mcg/actuation HFA aerosol inhaler 2 puff inhalation BID Qty: 12 0RF rosuvastatin [Crestor] 20 mg Tablet 20 mg PO DAILY Qty: 30 0RF zolpidem 10 mg tablet 10 mg PO BEDTIME Qty: 30 0RF Discontinued nitrofurantoin macrocrystal 50 mg capsule 50 mg PO DAILY Qty: 90 1RF Rx Instructions: must administer with a meal/food Discharge Orders: Discharge Order (Routine); Ordered 07/20/23 Ordered By: Whit Sheldon Diet: Advance to usual diet Activity on Discharge: As tolerated Stand Alone Forms: Patient Portal Discharge page Care Plan Goals: Complete resolution of symptoms Stop Macrobid Take Bactrim for ESBL UTI Take Cefuroxime for pneumonia Health Concerns: ESBL UTI sepsis aspiration pneumonia Plan of Treatment: Follow-up with primary care provider as needed Take all medications as prescribed Assessment: See discharge summary
[2023-07-19] MEDS: diphenhydrAMINE HCL 50 MG/ML VIAL 12.5 MG IVPUSH (13:33)
--- NOTE | 2023-07-19 13:33 | MHC.SL.SWA ---
Speech Pathologist Impression: WFL Risk of Aspiration Due to: N/A Dysphasia Diet Status: No change, continue on Regular texture diet Liquid Consistency and Strategies for Safe Swallow: Liquid Intake Recommendation: Thin Liquid Intake Strategies: Small Sips Solid Food Consistency: Dietary Recommendations: Regular Additional Modifications to Solid Foods: Oral mech exam was unremarkable. Patient was able to feed herself without difficulty and consumed regular texture solid and thin liquids. Patient demonstrated functional oral phase, timely swallow, no overt s/s of aspiration, and complete oral clearance post-swallow. She likewise passed her nursing swallow exam as well. Recommend CONTINUE on REGULAR texture diet and THIN liquids, pills WHOLE in LIQUID. Further ST intervention is no longer warranted at this level of care. Please re-refer with any changes or if TELETRAY OPERATOR can be of further assistance. Oral Medication Intake: Whole with Liquid Please contact the pharmacy regarding appropriate crushable or liquid drug formulations that are available whenever modified delivery is recommended. Supervision While Eating and Drinking for Safe Swallow: None Needed Recommendation for Speech: NA:Typical Evaluation Comment: Frequency/Duration: Date Range for Service Req: Timeline to reassess: Dosimetrist Clinican/Clinical Fellow: No Supervisory Statement: I have reviewed and agree with the student/clinical fellow's documentation: N/A Speech Language Pathologist: Tomasa Caraballo M.A., CCC-TELETRAY OPERATOR
[2023-07-19] MEDS: Elviteg/Cobi/Emtric/Tenofo Ala 150/150/200/10 TABLET 1 TAB PO (14:05)
[2023-07-19 14:45] VITALS: BP 90/55; PULSE 71; RESP 18; TEMP 37.1; O2SAT 95
--- NOTE | 2023-07-19 14:47 | MHC.CM.PN ---
pt home no servies
--- NOTE | 2023-07-19 14:59 | MHC.CM.PN ---
pt feels she is too dizzy to go in [facility] booked
--- NOTE | 2023-07-19 15:30 | P.PNIM_ITS ---
Subjective Subjective Date of Service: 07/19/23 Review of Systems Follow up aspiration pna no pain or sob c/o lower back pain Physical Exam 2 Vital Signs: Vital Signs: Last Vital Signs Temp 98.7 F 07/19/23 14:45 Pulse 71 07/19/23 14:45 Resp 18 07/19/23 14:45 BP 90/55 L 07/19/23 14:45 Pulse Ox 95 07/19/23 14:45 O2 Del Method Room Air 07/19/23 14:45 BMI result Body Mass Index 30.0 Appearing in no acute distress lung sounds are clear to auscultation heart regular rate rhythm, clear S1, S2 positive bowel sounds, abdomen is soft, nontender neuro patient is alert x3, no focal deficits Objective Data Active Medications Acetaminophen (Acetaminophen 325 Mg Tablet) 650 mg PO Q6H PRN PRN Reason: Pain, Mild (Pain Scale 1-3) Last Admin: 07/17/23 20:39 Dose: 650 mg Documented By: DENIS Atorvastatin Calcium (Atorvastatin Calcium 80 Mg Tablet) 80 mg PO DAILY [facility] Last Admin: 07/19/23 09:19 Dose: 80 mg Documented By: RASHAWN Dicyclomine HCl (Dicyclomine Hcl 10 Mg Capsule) 20 mg PO TID [facility] Last Admin: 07/19/23 13:33 Dose: 20 mg Documented By: RASHAWN Elvitegravir/Cobicis/Emtricit/Tenof (Elviteg/Tania/Emtric/Tenofo Ala 150/150/200/10 Tablet) 1 tab PO DAILY [facility] Last Admin: 07/19/23 14:05 Dose: 1 tab Documented By: RASHAWN Enoxaparin Sodium (Enoxaparin Sodium 40 Mg/0.4 Ml Syringe) 40 mg SUBCUT QD@0600 [facility] Last Admin: 07/19/23 06:39 Dose: 40 mg Documented By: LESLEY Fluticasone Propionate (Fluticasone Propionate 100 Mcg Blst.W.Dev) 2 puff INHALE RBID [facility] Last Admin: 07/19/23 07:41 Dose: 2 puff Documented By: JONAH Fluticasone/Vilanterol (Fluticasone/Vilanterol 200/25 Blst.W.Dev) 1 puff INHALE RDAILY [facility] Last Admin: 07/19/23 07:41 Dose: 1 puff Documented By: JONAH Furosemide (Furosemide 20 Mg Tablet) 20 mg PO DAILY [facility]; Protocol Last Admin: 07/19/23 09:19 Dose: 20 mg Documented By: RASHAWN Meropenem 1 gm/ Sodium (Chloride) 100 mls @ 200 mls/hr IV Q8H [facility] Last Infusion: 07/19/23 10:03 Dose: Infused Documented By: RASHAWN Meclizine HCl (Meclizine Hcl 12.5 Mg Tablet) 12.5 mg PO TID PRN PRN Reason: Vertigo Last Admin: 07/18/23 10:35 Dose: 12.5 mg Documented By: KEVAN Melatonin (Melatonin 3 Mg Tablet) 6 mg PO BEDTIME PRN PRN Reason: Insomnia Naproxen (Naproxen 500 Mg Tablet) 500 mg PO BID [facility] Last Admin: 07/19/23 09:19 Dose: 500 mg Documented By: RASHAWN Non-Formulary Medication (Linaclotide [Linzess]) 145 mcg PO DAILY [facility] Omeprazole (Omeprazole 20 Mg Capsule.Dr) 20 mg PO DAILY@0630 [facility] Last Admin: 07/19/23 06:38 Dose: 20 mg Documented By: LESLEY Ondansetron HCl (Ondansetron Hcl 4 Mg/2 Ml Vial) 4 mg IVPUSH Q8H PRN PRN Reason: Nausea and Vomiting Oxycodone HCl (Oxycodone Hcl Immed Release 5 Mg Tablet) 5 mg PO Q6H PRN PRN Reason: Pain, Moderate(Pain Scale 4-6) Last Admin: 07/19/23 15:12 Dose: 5 mg Documented By: LEXA Sertraline HCl (Sertraline Hcl 100 Mg Tablet) 100 mg PO DAILY PRN PRN Reason: mood Sodium Chloride (0.9 % Sodium Chloride Flush 3 Ml Syringe) 3 ml IVFLUSH QSHIFT [facility] Last Admin: 07/19/23 15:06 Dose: Not Given Documented By: LEXA Non-Admin Reason: Previously Administered Zolpidem Tartrate (Zolpidem Tartrate 5 Mg Tablet) 5 mg PO BEDTIME [facility] Last Admin: 07/18/23 20:12 Dose: 5 mg Documented By: KEVAN Labs 07/17/23 05:07 07/17/23 05:07 Microbiology Microbiology Results: Microbiology 07/18/23 Unknown Gram Stain - Final Sputum - Expectorated Sputum Culture - Final 07/17/23 00:06 Blood Culture - Preliminary Blood - Venous No growth after 48 hours. 07/16/23 23:48 Blood Culture - Preliminary Blood - Venous No growth after 48 hours. Assessment and Plan (1) Pneumonia: Status: Acute (2) UTI (urinary tract infection): Status: Acute Plan 63-year-old female with pertinent history of HIV, gastroesophageal reflux disease, mixed hyperlipidemia, mood disorder, asthma not on home oxygen who presents to the emergency department for evaluation of cough, dysuria, generalized fatigability. Sepsis due to aspiration pneumonia +GNR UTI Sepsis resolved IV meropenem urine cx ESBL Eye swelling patient states that she gets this at home unknown if she has seasonal allergies will order claritin, benadryl as needed HIV Patient is immunocompetent with last viral load undetectable and last CD4 count 351. On Genvoya Gastroesophageal reflux disease PPI Mixed hyperlipidemia On statin Mood disorder Continue home mood stabilizers Asthma Not on home oxygen. No exacerbation during admission. Continue home inhaler DVT prophylaxis: Lovenox Attending Dr. Russell Full code continue hospital stay for IV antibiotics (as above), which is not possible in a lesser acute setting. Quality Stroke Does the patient have a stroke diagnosis?: No VTE Prior VTE?: No VTE Risk Level:: Medical - moderate - high VTE Device Contraindication: Treatment Not Indicated VTE Drug Contraindication: N/A - Med Ordered
[2023-07-19] MEDS: Loratadine 10 MG TABLET PO (17:29)
[2023-07-19 19:03] VITALS: BP 118/67; PULSE 75; RESP 18; TEMP 36.2; O2SAT 97
[2023-07-19 19:48] VITALS: PULSE 75; RESP 18; O2SAT 97
[2023-07-19] MEDS: Zolpidem Tartrate 5 MG TABLET PO (20:55)
--- NOTE | 2023-07-19 21:34 | PC.NURSE ---
Patient notified with manager books at change of shift that she was going to be discharged today (she did not seem happy with me as I was the bearer of bad news in her eyes) and patient became very irate, ripping off orestes and jumping out of bed, per interepreter patient stating that she should have been notified earlier so she could set a ride up plus she just felt she wasnt ready for discharge. I spoke with case management and an ambulance or uber/lift was offered to patient and both were declined, I notified PA of patients concerns and she came to bedside and spoke with patient and both decided that patient would remain overnight and be discharged in the morning. Patient agreeable to this, bed alarm placed for safety.
--- NOTE | 2023-07-19 22:41 | W.PM.IDCN ---
History of Present Illness Data of Consult Service Date: 07/19/23 Requesting physician: Whit Sheldon Primary Care Provider: Veronica Rebolledo MD HPI Reason for consult: weakness She presents with weakness and urinary frequency for five days. She has ESBL E coli in urine and right lower lung infiltrate. She reports having urinary hesitancy as well. 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 HIV (human immunodeficiency virus infection) Arthritis History of blood transfusion Anemia Hx of renal calculi Difficulty swallowing GERD (gastroesophageal reflux disease) Hepatitis Depression Sleep apnea Asthma Elevated cholesterol HTN (hypertension) Family History Family History Mother Breast cancer Father Heart problem Sister Bone cancer Family/Other Diabetes Family history: reviewed and not pertinent Surgical History Surgical History Hx of dilation and curettage Hx of section Hx of reduction mammoplasty Hx of tubal ligation Hx of cholecystectomy Hx of colonoscopy Social History Social History Household Members: None Housing: Apartment Do you presently have visiting nurse or other home services: No Alcohol intake: current Alcohol intake frequency: does not drink Alcohol type: wine Patient Tobacco Use Status: Former Tobacco user Tobacco use type: Cigarette Cigarette Packs Per Day: 2 Cigarettes Per Day: 40.0 Years Smoked: 40 e-Cigarette/Vaping Use: Never Used Second Hand Smoke Exposure: No service: No Sexual orientation: Straight/Heterosexual Gender identity: Female Meds Allergies Allergy/AdvReac Type Severity Reaction Status Date / Time shellfish derived Allergy Intermediate HIVES, N/V Verified 07/16/23 18:57 Active Medications: Current Medications Acetaminophen (Acetaminophen 325 Mg Tablet) 650 mg PO Q6H PRN PRN Reason: Pain, Mild (Pain Scale 1-3) Last Admin: 07/17/23 20:39 Dose: 650 mg Atorvastatin Calcium (Atorvastatin Calcium 80 Mg Tablet) 80 mg PO DAILY [facility] Last Admin: 07/19/23 09:19 Dose: 80 mg Dicyclomine HCl (Dicyclomine Hcl 10 Mg Capsule) 20 mg PO TID [facility] Last Admin: 07/19/23 20:55 Dose: 20 mg Diphenhydramine HCl (Diphenhydramine Hcl 25 Mg Capsule) 25 mg PO Q4H PRN PRN Reason: allergy Elvitegravir/Cobicis/Emtricit/Tenof (Elviteg/Tania/Emtric/Tenofo Ala 150/150/200/10 Tablet) 1 tab PO DAILY [facility] Last Admin: 07/19/23 14:05 Dose: 1 tab Enoxaparin Sodium (Enoxaparin Sodium 40 Mg/0.4 Ml Syringe) 40 mg SUBCUT QD@0600 [facility] Last Admin: 07/19/23 06:39 Dose: 40 mg Fluticasone Propionate (Fluticasone Propionate 100 Mcg Blst.W.Dev) 2 puff INHALE RBID [facility] Last Admin: 07/19/23 19:47 Dose: 2 puff Fluticasone/Vilanterol (Fluticasone/Vilanterol 200/25 Blst.W.Dev) 1 puff INHALE RDAILY [facility] Last Admin: 07/19/23 07:41 Dose: 1 puff Furosemide (Furosemide 20 Mg Tablet) 20 mg PO DAILY [facility]; Protocol Last Admin: 07/19/23 09:19 Dose: 20 mg Meropenem 1 gm/ Sodium (Chloride) 100 mls @ 200 mls/hr IV Q8H [facility] Last Infusion: 07/19/23 18:01 Dose: Infused Loratadine (Loratadine 10 Mg Tablet) 10 mg PO DAILY [facility] Last Admin: 07/19/23 17:29 Dose: 10 mg Meclizine HCl (Meclizine Hcl 12.5 Mg Tablet) 12.5 mg PO TID PRN PRN Reason: Vertigo Last Admin: 07/18/23 10:35 Dose: 12.5 mg Melatonin (Melatonin 3 Mg Tablet) 6 mg PO BEDTIME PRN PRN Reason: Insomnia Naproxen (Naproxen 500 Mg Tablet) 500 mg PO BID [facility] Last Admin: 07/19/23 20:55 Dose: 500 mg Non-Formulary Medication (Linaclotide [Linzess]) 145 mcg PO DAILY [facility] Omeprazole (Omeprazole 20 Mg Capsule.) 20 mg PO DAILY@0630 [facility] Last Admin: 07/19/23 06:38 Dose: 20 mg Ondansetron HCl (Ondansetron Hcl 4 Mg/2 Ml Vial) 4 mg IVPUSH Q8H PRN PRN Reason: Nausea and Vomiting Oxycodone HCl (Oxycodone Hcl Immed Release 5 Mg Tablet) 5 mg PO Q6H PRN PRN Reason: Pain, Moderate(Pain Scale 4-6) Last Admin: 07/19/23 20:56 Dose: 5 mg Sertraline HCl (Sertraline Hcl 100 Mg Tablet) 100 mg PO DAILY PRN PRN Reason: mood Sodium Chloride (0.9 % Sodium Chloride Flush 3 Ml Syringe) 3 ml IVFLUSH QSHIFT [facility] Last Admin: 07/19/23 15:06 Dose: Not Given Zolpidem Tartrate (Zolpidem Tartrate 5 Mg Tablet) 5 mg PO BEDTIME [facility] Last Admin: 07/19/23 20:55 Dose: 5 mg Home Medications Medication Instructions Recorded Confirmed Last Taken Type elviteg 150 mg-cob 150 mg-emtricit 1 tab PO QAM 07/17/23 07/17/23 Unknown History 200 mg-tenofo alafenam 10 mg tablet (Genvoya) Physical Exam Vital Signs: Vital Signs: Last Vital Signs Temp 97.2 F 07/19/23 19:03 Pulse 75 07/19/23 19:48 Resp 18 07/19/23 19:48 BP 118/67 07/19/23 19:03 Pulse Ox 97 07/19/23 19:03 O2 Del Method Room Air 07/19/23 19:03 BMI result Body Mass Index 30.0 : Other: mild right flank pain Results Labs 07/17/23 05:07 07/17/23 05:07 Microbiology Microbiology Results: Microbiology 07/18/23 Unknown Sputum - Expectorated Gram Stain - Final 07/18/23 Unknown Sputum - Expectorated Sputum Culture - Final 07/17/23 00:06 Blood - Venous Blood Culture - Preliminary No growth after 48 hours. 07/16/23 23:48 Blood - Venous Blood Culture - Preliminary No growth after 48 hours. 07/16/23 Unknown Urine clean catch - Urine sow top Urine Culture - Final Escherichia coli Assessment and Plan (1) UTI (urinary tract infection): Status: Acute Plan She appears to have ESBL E coli urinary infection. Sometimes with incipient sepsis lung infiltrates will appear in ARDS type fashion Would continue Merem and change to po Bactrim DS bid total 10 days antibiotics when ready for discharge,
[2023-07-20 03:12] VITALS: BP 133/81; PULSE 70; RESP 18; TEMP 36.6; O2SAT 97
[2023-07-20] MEDS: Enoxaparin Sodium 40 MG/0.4 ML SYRINGE SUBCUT (06:06)
[2023-07-20] MEDS: Omeprazole 20 MG CAPSULE.DR PO (06:06)
[2023-07-20 07:33] VITALS: PULSE 70; RESP 18; O2SAT 95
[2023-07-20] MEDS: Fluticasone/Vilanterol 200/25 BLST.W.DEV 1 PUFF INHALE (07:33)
[2023-07-20] MEDS: Fluticasone Propionate 100 MCG BLST.W.DEV 2 PUFF INHALE (07:33)
--- NOTE | 2023-07-20 07:51 | W.MHC.F2F ---
Service Date Service Date: 07/20/23 Encounter Date of encounter: 07/20/23 Reasons for Services Signs and symptoms assessed: ESBL UTI weakness Reason for physical therapy: home safety and mobility Homebound: Leaving the home is medically contraindicated at this time without the asist of a device and/or another person due th the listed conditions above and below. Reason homebound: unsteady gait / fall risk and other (weakness from hospital stay ) Certification: Based on the above findings, I certify that this patient is confined to the home and needs intermittent senior care care, physical therapy and/or speech therapy, or continues to need occupational therapy. The patient is under my care, and I have initiated the establishment of the plan of care. The patient will be followed by a physician who will periodically review the plan of care. Time Spent With Patient Time: Total time managing care of this patient today ____ minutes.
[2023-07-20 08:00] VITALS: BP 134/74; PULSE 69; RESP 18; TEMP 36.4; O2SAT 95
[2023-07-20] MEDS: Atorvastatin Calcium 80 MG TABLET PO (09:21)
[2023-07-20] MEDS: Elviteg/Cobi/Emtric/Tenofo Ala 150/150/200/10 TABLET 1 TAB PO (09:21)
[2023-07-20] MEDS: Loratadine 10 MG TABLET PO (09:21)
[2023-07-20] MEDS: Furosemide 20 MG TABLET PO (09:21)
[2023-07-20] MEDS: NaPROXEN 500 MG TABLET PO (09:21)
[2023-07-20] MEDS: Dicyclomine HCl 10 MG CAPSULE 20 MG PO (09:21)
--- NOTE | 2023-07-20 14:52 | P.CDIM_ITS ---
PROVIDER RESPONSE TEXT: To clarify, the appropriate diagnosis supported by the clinical indicators: Mild persistent Asthma: no exacerbation QUERY TEXT: PHYSICIAN'S DOCUMENTATION REQUEST Date of Query: 07/19/2023 10:19 AM EDT Patient Name: America Bower Admit Date: 07/17/2023 Dear Whit Sheldon, A review of the medical record indicates additional documentation may be needed. Please review below and update the documentation accordingly. Progress note under Plan: Cough, MOLINA. Asthma, no exacerbation, not on home oxygen Continue home inhaler History of Smoking Based on the above, please clarify in the Progress Notes further specificity regarding the type of as thma if known: Mild persistent Asthma no exacerbation etc. Moderate persistent Severe persistent Exercise induced Other (explain) Clinically unable to determine (explain) Thank you, Mayte Altamirano, CCS, CDIS Use of terms such as suspected, likely, concern for, or probable (associated with a specific diagnosi s that is being evaluated, monitored, or treated as if it exists) are acceptable and can be coded in the inpatient se tting, when documented at the time of discharge. Please use your independent medical judgment in providing your response. THIS QUERY IS PART OF THE PERMANENT MEDICAL RECORD
== END 2023-07-20 10:16 | disposition home health service (06) | DRG 720 ==
LOC: HO.ED 07-17 01:40 → HO.EDOVER 07-17 02:00 → HO.S3 07-17 03:43
PROVIDERS: Nurse Practitioner Family; Admitting Provider Student in an Organized Health Care Education/Training Program; Emergency Provider Internal Medicine; PCP Internal Medicine; Visit Provider Nurse Practitioner Acute Care
DX: A41.9 Sepsis, unspecified organism (principal); J69.0 Pneumonitis due to inhalation of food and vomit; N39.0 Urinary tract infection, site not specified; K21.9 Gastro-esophageal reflux disease without esophagitis; B96.20 Unspecified Escherichia coli [E. coli] as the cause of diseases classified elsewhere; Z16.12 Extended spectrum beta lactamase (ESBL) resistance; J45.20 Mild intermittent asthma, uncomplicated; Z21 Asymptomatic human immunodeficiency virus [HIV] infection status; E78.2 Mixed hyperlipidemia; F39 Unspecified mood [affective] disorder; Z20.822 Contact with and (suspected) exposure to COVID-19; Z87.891 Personal history of nicotine dependence; Z79.51 Long term (current) use of inhaled steroids; Z79.899 Other long term (current) drug therapy
CPT/HCPCS: 0241U; 36415; 71046; 74176; 80048; 80053; 81001; 83605; 83690; 83735; 84484; 85007; 85025; 85027; 87040; 87070; 87086; 87088; 87186; 87205; 92610; 93005; 94640; 97161; 99285; J0696; J1200; J1650; J2185

== ENCOUNTER → 2023-07-16 18:56 | Outpatient (BNV) | payer MEDICAID, SELFPAY | PROVIDERS: Admitting Provider Student in an Organized Health Care Education/Training Program; Emergency Provider Internal Medicine; PCP Internal Medicine; Visit Provider Internal Medicine Cardiovascular Disease | DX: R07.9 Chest pain, unspecified (principal) | CPT/HCPCS: 93010 ==

== ENCOUNTER 2023-07-17 01:55 | Outpatient (BNV) | payer MEDICAID, SELFPAY | END 2023-07-18 11:39 | PROVIDERS: Admitting Provider Student in an Organized Health Care Education/Training Program; Emergency Provider Internal Medicine; PCP Internal Medicine; Visit Provider Internal Medicine Cardiovascular Disease | DX: R07.9 Chest pain, unspecified (principal) | CPT/HCPCS: 93010 ==

== ENCOUNTER → 2023-07-17 01:55 | Outpatient (BNV) | payer MEDICAID, SELFPAY | PROVIDERS: Admitting Provider Student in an Organized Health Care Education/Training Program; Emergency Provider Internal Medicine; PCP Internal Medicine; Visit Provider Student in an Organized Health Care Education/Training Program | DX: J18.9 Pneumonia, unspecified organism (principal); N39.0 Urinary tract infection, site not specified | CPT/HCPCS: 99222; 99232; 99239; G0180 ==

== ENCOUNTER → 2023-07-17 01:55 | Outpatient (BNV) | payer MEDICAID, SELFPAY | PROVIDERS: Admitting Provider Student in an Organized Health Care Education/Training Program; Emergency Provider Internal Medicine; PCP Internal Medicine; Visit Provider Internal Medicine | DX: N39.0 Urinary tract infection, site not specified (principal) | CPT/HCPCS: 99222 ==

== ENCOUNTER 2023-07-28 08:21 | Outpatient (REF) | payer MEDICAID, SELFPAY ==
--- NOTE | ~2023-07-28 | XR_ITS ---
EXAMINATION: XR CHEST CLINICAL INFORMATION: Cough COMPARISON: None available. TECHNIQUE: 2 views of the chest were obtained. FINDINGS: Diffuse peribronchial vascular opacities may reflect edema or atypical infection. Left lung base nodular opacity may reflect aspiration or infection. Recommend follow-up to resolution to exclude an underlying lesion. No effusion or pneumothorax. Cardiac mediastinal silhouette is within normal limits. XR/XR chest 2V IMPRESSION: * Diffuse peribronchial vascular opacities may reflect edema or atypical infection. * Left lung base nodular opacity may reflect aspiration or infection. Recommend follow-up to resolution to exclude an underlying lesion.
== END 2023-07-28 08:22 | disposition home or self-care (01) ==
LOC: HO.XRAY 08:21
PROVIDERS: Absent Provider Internal Medicine; PCP Internal Medicine; Visit Provider Internal Medicine Pulmonary Disease
DX: R05.9 Cough, unspecified (principal); J45.909 Unspecified asthma, uncomplicated; R06.09 Other forms of dyspnea
CPT/HCPCS: 71046; 99212

== ENCOUNTER 2023-07-28 08:21 | Outpatient (AMB) | payer MEDICAID, SELFPAY ==
--- NOTE | 2023-07-28 09:03 | A.OFFVIS_ITS ---
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 Patient recent CT chest does not demonstrate significant interstitial disease. Her pulmonary function test is still pending. Her 2D echocardiogram is essentially normal. She continues on Lasix with reasonable control of dyspnea and lower extremity edema. Patient recently been hospitalized at [facility] for pneumonia, though imaging failed to reveal any significant infiltrates. She does complain of pain in her back/epigastrium that it is wrapping around in distribution. 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 HIV (human immunodeficiency virus infection) Arthritis History of blood transfusion Anemia Hx of renal calculi Difficulty swallowing GERD (gastroesophageal reflux disease) Hepatitis Depression Sleep apnea Asthma Elevated cholesterol HTN (hypertension) Surgical History Hx of dilation and curettage Hx of section Hx of reduction mammoplasty Hx of tubal ligation Hx of cholecystectomy Hx of colonoscopy Family History Mother Breast cancer Father Heart problem Sister Bone cancer Family/Other Diabetes Social History Household Members: None Housing: Apartment Do you presently have visiting nurse or other home services: No Alcohol intake: current Alcohol intake frequency: does not drink Alcohol type: wine Patient Tobacco Use Status: Former Tobacco user Tobacco use type: Cigarette Cigarette Packs Per Day: 2 Cigarettes Per Day: 40.0 Years Smoked: 40 e-Cigarette/Vaping Use: Never Used Second Hand Smoke Exposure: No service: No Sexual orientation: Straight/Heterosexual Gender identity: Female Female Reproductive History Menstrual Age of Menarche: 12 Review of Systems Const Denies daytime sleepiness, Denies excessive sweating, Denies fatigue, Denies fever(s), Denies lethargy, Denies malaise, Denies night sweats, Denies snoring and Denies weight loss Eyes Denies blurry vision and Denies itchy eyes ENT Denies nasal congestion, Denies post nasal drip, Denies sinus pain, Denies sinus pressure and Denies other ( Thrush) Card Denies chest pain, Denies pedal edema, Denies dyspnea, Denies orthopnea and Denies paroxysmal nocturnal dyspnea Resp Denies cough, Denies hemoptysis, Denies excessive phlegm production, Denies dyspnea, Denies snoring and Denies wheezing GI Denies abdominal pain and Denies heartburn Musc Reports back pain, Denies myalgias, Denies arthralgias and Denies joint swelling Skin/Breast Denies rash Neuro Denies memory loss and Denies seizure-like activity Psych Denies abnormal sleep pattern, Denies anxiety and Denies memory loss Endo Denies excessive sweating, Denies fatigue and Denies heat intolerance Flaquito/Lymph Denies easy bruising Aller/Immun Denies itchy eyes, Denies seasonal rhinorrhea and Denies wheezing Physical Exam Vital Signs: Last Vital Signs Pulse 73 07/28/23 09:05 BP 138/78 07/28/23 09:05 Pulse Ox 96 07/28/23 09:05 Oxygen Delivery Method Room Air 07/28/23 09:05 BMI result Body Mass Index 35.1 Const General: no acute distress and alert Nutritional Appearance: not obese Orientation/consciousness: Other orientation findings ( oriented) HEENT Head: Yes atraumatic Eyes General: appearance normal, both eyes and all related structures Sclerae: sclerae normal EOM: EOMs intact bilaterally Neck Neck: Yes supple Lymphatic: no lymphadenopathy noted Resp Effort & Inspection: normal respiratory effort and no use of accessory muscles Auscultation: clear to auscultation bilaterally Cardio Rate: regular rate Rhythm: regular rhythm Heart sounds: no gallops, no murmurs and no rubs Skin General skin exam: other ( warm) Extrem General: No clubbing, No cyanosis and No edema Assessment & Plan Assessment & Plan (1) Dyspnea on exertion: Code(s): R06.09 - Other forms of dyspnea Plan: Multifactorial with contribution from underlying pulmonary deconditioning, obesity etiologies. Now lower extremity edema and dyspnea on exertion reasonably well controlled on Lasix 20 mg daily. Continue current regimen. (2) Reactive airway disease: Code(s): J45.909 - Unspecified asthma, uncomplicated Plan: Well controlled on Breo, Incruse, and albuterol MDI/nebs. Continue current regimen. Patient has been advised to discuss her back pain with her primary care provider. Coding Level of Care Code Est Pt Level 4 (52112) Diagnoses Dyspnea on exertion R06.09 Reactive airway disease J45.909
[2023-07-28 09:05] VITALS: BP 138/78; PULSE 73; O2SAT 96; BMI 35.1
== END 2023-07-28 09:32 | disposition home or self-care (01) ==
PROVIDERS: PCP Internal Medicine; Referring Provider Internal Medicine; Visit Provider Internal Medicine Pulmonary Disease
DX: R06.09 Other forms of dyspnea (principal); J45.909 Unspecified asthma, uncomplicated
CPT/HCPCS: 99214

== ENCOUNTER 2023-07-28 10:10 | Emergency (ER) | payer MEDICAID, SELFPAY ==
--- NOTE | ~2023-07-28 | CT_ITS ---
EXAMINATION: CT ABDOMEN AND PELVIS WITHOUT CONTRAST CLINICAL INFORMATION: Right renal calculus. COMPARISON: 07/18/2023 TECHNIQUE: Multidetector volumetric imaging was performed from the superior aspect of the liver through the pubic symphysis. Sagittal and coronal reformatted images were obtained on the technologist's workstation. This CT examination was performed using dose optimization techniques as appropriate, variously including the following: *Automated exposure control *Adjustment of mA and/or kV according to patient size (this includes techniques or standardized protocols for targeted exams where dose is matched to indication/reason for exam; i.e. extremities or head) *Use of iterative reconstruction technique DLP: 993 mGy-cm FINDINGS: Motion artifact technically degrades image quality. LUNG BASES: There is bibasilar airspace disease and bronchial wall thickening. Subpleural nodule in the right lower lobe measures 2.0 x 1.2 cm. New small right pleural effusion. LIVER, GALLBLADDER, AND BILIARY TREE: The noncontrast liver is normal in size and contour. No biliary ductal dilatation is present. The gallbladder is surgically absent. PANCREAS: Unremarkable. SPLEEN: Not enlarged. ADRENAL GLANDS: No adrenal mass. KIDNEYS AND URETERS: The right kidney is unremarkable. There are several nonobstructing left renal calculi. There are at least 5 calculi ranging in size from 3 mm to 5 mm in the mid to lower pole. No left hydronephrosis or hydroureter. 4.3 cm upper pole left renal cyst. BLADDER: No bladder calculus. GASTROINTESTINAL TRACT: No small bowel obstruction. Copious stool throughout the colon. ABDOMINAL WALL: No significant hernia is appreciated. LYMPH NODES: No bulky lymphadenopathy. VASCULAR: Normal caliber abdominal aorta. PELVIC VISCERA: No large adnexal masses are appreciated. OSSEOUS STRUCTURES: No destructive bone lesions. Fatty atrophy of the right lateral chest wall musculature. CT/CT abdomen pelvis wo IV con IMPRESSION: Bibasilar airspace disease, right greater than left, and bronchial wall thickening. Subpleural nodule in the right lower lobe measures 2.0 x 1.2 cm. New small right pleural effusion. Several nonobstructing left renal calculi are present. No hydronephrosis or hydroureter. Constipation.
[2023-07-28 10:50] VITALS: BP 132/74; PULSE 65; RESP 18; TEMP 36.4; O2SAT 97; BMI 31.9
[2023-07-28 11:21] LABS: MANUAL DIFF FLAG NO
[2023-07-28 11:27] LABS: Basophils Percent Auto 0.3 % (0-2); Eosinophils Absolute Auto 0.3 X10*3/uL (0.0-0.4); Hematocrit 35.8 % (37.0-47.0); Hemoglobin 11.4 g/dl (12.0-16.0); Imm Gran Abs Auto 0.04 X10*3/uL (0.00-0.03); Imm Gran Pct Auto 0.5 % (0.0-0.4); Lymphocytes Absolute Auto 1.5 X10*3/uL (1.2-4.9); Lymphocytes Percent Auto 17.5 % (20-40); Mean Corpuscular HGB Conc 31.8 g/dl (31.0-35.0); Mean Corpuscular Hemoglobin 28.7 pg (27.0-33.0); Mean Corpuscular Volume 90.2 fL (80.0-98.0); Mean Platelet Volume 9.8 fL (9.4-12.3); Monocytes Absolute Auto 0.6 X10*3/uL (0.1-1.2); Monocytes Percent Auto 6.5 % (2-11); Neutrophils Absolute Auto 6.2 x10*3/uL (2.0-8.3); Neutrophils Percent Auto 72.2 % (45-73); Platelet Count 329 X10*3/uL (160-400); Red Blood Count 3.97 X10*6/uL (4.20-5.50); Red Cell Distribution Width 13.2 % (11.0-16.0); White Blood Count 8.6 X10*3/uL (4.8-10.8)
[2023-07-28 11:27] LABS: Appearance Urine Cloudy; Color Urine Red; Glucose Urine UA Negative (Negative); Leukocyte Esterase Urine Small (1+) (Negative); Nitrite Urine Negative (Negative); PH 6.5 (5.0-9.0); UMIC TRIGGER UACC YES; Urine Blood Large (3+) (Negative); Urine Ketones Negative (Negative); Urine Protein 30 (1+) mg/dL (Neg-Trace)
[2023-07-28 11:31] LABS: Bacteria Urine None Seen (None Seen); Hyaline Casts Urine 0-2 /LPF (0-2); RBC Urine >20 /HPF (0-2); Squamous Epithelial Cell Urine 0-2 /HPF (0-2); UACC Culture Trigger YES
[2023-07-28 11:47] LABS: Alanine Aminotransferase 10 U/L (0-31); Albumin Level 3.7 g/dL (3.5-5.0); Alkaline Phosphatase 72 U/L (39-117); Anion Gap 11 (12-20); Aspartate Amino Transferase 13 U/L (5-31); Bilirubin Direct < 0.2 mg/dL (0.0-0.5); Bilirubin Total 0.2 mg/dL (0.0-1.0); Blood Urea Nitrogen 28 mg/dL (9-16); Calcium 9.1 mg/dL (8.4-10.2); Carbon Dioxide 26 mmol/L (22-29); Chloride 106 mmol/L (96-108); Creatinine Clr Calc Pharmacy 71.9; Estimated Glomerular Filt Rate > 60; Glucose Random 88 mg/dL (60-115); Lipase 29 U/L (8-78); Potassium 4.3 mmol/L (3.3-5.1); Sodium 139 mmol/L (135-145); Total Protein 8.1 g/dL (6.5-8.0)
[2023-07-28 16:09] VITALS: BP 133/66; PULSE 79; RESP 16; TEMP 36.8; O2SAT 96
[2023-07-28] MEDS: Acetaminophen 325 MG TABLET 650 MG PO (16:15)
[2023-07-28 20:22] VITALS: BP 140/61; PULSE 69; RESP 14; TEMP 36.5; O2SAT 97
--- NOTE | 2023-07-28 21:27 | ED.ABDPAIN ---
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 The patient states that her symptoms started approximately 3 days prior and got progressively worse. She points to her right flank and right abdomen asked to localize the pain. She describes the pain is a severe squeezing pain. She states the pain got worse last night. She states that she also noted hematuria, urinary frequency and dysuria. Patient states that her pain feels similar to when she has had a kidney stone in urine infection in the past. Patient states that while she was here in the emergency department she did pass a dark black stone in her urine. She denied fever but did have chills. She denied nausea or vomiting. She denied chest pain, shortness of breath, cough. Related Data Home Medications ?Medication ?Instructions ?Recorded ?Confirmed elviteg 150 mg-cob 150 mg-emtricit 1 tab PO QAM 07/17/23 07/17/23 200 mg-tenofo alafenam 10 mg tablet (Genvoya) Previous Rx's ?Medication ?Instructions ?Recorded ondansetron 4 mg disintegrating 4 mg PO Q6-8H PRN nausea and 10/01/21 tablet vomiting #14 tabs fluticasone furoate 200 1 inh inhalation DAILY 30 days #60 01/08/23 mcg-vilanterol 25 mcg/dose ea inhalation powder (Breo Ellipta) linaclotide 145 mcg capsule 145 mcg PO QAM #30 caps 02/18/23 (Linzess) albuterol sulfate 2.5 mg/3 mL 2.5 mg (3 mL) inhalation Q4-6H PRN 07/19/23 (0.083 %) solution for nebulization Shortness Of Breath #75 mL cefuroxime axetil 500 mg tablet 500 mg PO BID 4 days #8 tabs 07/19/23 dicyclomine 20 mg tablet 20 mg PO TID #90 tabs 07/19/23 fluticasone propionate 110 2 puff inhalation BID #12 grams 07/19/23 mcg/actuation HFA aerosol inhaler furosemide 20 mg tablet 20 mg PO DAILY 30 days #30 tabs 07/19/23 guaifenesin 600 mg tablet, 600 mg PO Q12H PRN cough 3 days #6 07/19/23 extended release 12 hr (Mucinex) tabs meclizine 12.5 mg tablet 12.5 mg PO TID PRN Vertigo #12 tabs 07/19/23 meloxicam 15 mg tablet 15 mg PO DAILY #30 tabs 07/19/23 omeprazole 20 mg capsule,delayed 20 mg PO DAILY #30 caps 07/19/23 release oxycodone 5 mg tablet 5 mg PO Q6H PRN Pain, 07/19/23 Moderate(Pain Scale 4-6) #16 tabs rosuvastatin 20 mg tablet (Crestor) 20 mg PO DAILY #30 tabs 07/19/23 sertraline 100 mg tablet 100 mg PO DAILY PRN mood #30 tabs 07/19/23 sulfamethoxazole 800 1 tab PO BID 10 days #20 tabs 07/19/23 mg-trimethoprim 160 mg tablet (Bactrim DS) zolpidem 10 mg tablet 10 mg PO BEDTIME #30 tabs 07/19/23 loratadine 10 mg tablet 10 mg PO DAILY #30 tabs 07/20/23 cefuroxime axetil 250 mg tablet 250 mg PO Q12H 5 days #10 tabs 07/28/23 naproxen 500 mg tablet 500 mg PO BID PRN pain 7 days #14 07/28/23 tabs oxycodone 5 mg tablet 5 mg PO Q6H PRN pain #10 tabs 07/28/23 Allergies Allergy/AdvReac Type Severity Reaction Status Date / Time shellfish derived Allergy Intermediate HIVES, N/V Verified 07/28/23 10:54 Review of Systems Review of Systems Yes all other systems are reviewed and are negative REPLACED BY [facility] Past Medical History REPLACED BY [facility] Narrative: Social history: She denies tobacco, alcohol and drug use. 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 HIV (human immunodeficiency virus infection) Arthritis History of blood transfusion Anemia Hx of renal calculi Difficulty swallowing GERD (gastroesophageal reflux disease) Hepatitis Depression Sleep apnea Asthma Elevated cholesterol HTN (hypertension) Surgical History Hx of dilation and curettage Hx of section Hx of reduction mammoplasty Hx of tubal ligation Hx of cholecystectomy Hx of colonoscopy Family History Family History Mother Breast cancer Father Heart problem Sister Bone cancer Family/Other Diabetes Social History Social History Household Members: None Housing: Apartment Do you presently have visiting nurse or other home services: No Alcohol intake: current Alcohol intake frequency: does not drink Alcohol type: wine Patient Tobacco Use Status: Former Tobacco user Tobacco use type: Cigarette Cigarette Packs Per Day: 2 Cigarettes Per Day: 40.0 Years Smoked: 40 e-Cigarette/Vaping Use: Never Used Second Hand Smoke Exposure: No Advance Directives: No Advance Directives Information Provided: No service: No Sexual orientation: Straight/Heterosexual Gender identity: Female Physical Exam ED Vital Signs: Vital Signs - 24 hr 07/28/23 10:50 07/28/23 16:09 07/28/23 20:22 Temperature 97.6 F 98.2 F 97.7 F Pulse Rate 65 79 69 Respiratory Rate 18 16 14 Blood Pressure 132/74 133/66 140/61 H Pulse Oximetry 97 96 97 Oxygen Delivery Method Room Air Room Air Room Air BMI result Body Mass Index 31.9 Vital signs were normal. Exam: General: Awake, alert in no distress Head: Normocephalic, atraumatic EENT: PERRL, Lids normal, sclera normal, conjunctiva normal, nose normal , ears normal, throat without erythema or exudates Neck: Supple, no adenopathy Lung: breath sounds symmetric, no wheezing, rales or rhonchi Chest: symmetric movement, nontender Heart: regular rate and rhythm, normal S1, S2 no murmurs or rubs Abdomen: soft, non-tender, nondistended, normal bowel sounds Back: no vertebral tenderness, mild to moderate right CVAT Extremities: no deformities, moves all extremities symmetrically Neuro: Awake, alert, oriented, normal speech, cranial nerves intact, moves all extremities symmetrically Psych: Pleasant, cooperative Medical Decision Making Medical Decision Making MDM Narrative: 63-year-old female with history of hyperlipidemia, COPD, GERD, depression, HIV, fibromyalgia, bilateral renal calculi who presents emergency department for evaluation of right flank pain, dysuria and hematuria x3 days, worse since last night. Patient did pass a kidney stone here in the emergency department. Vital signs were normal. Exam did reveal right CVA tenderness otherwise was unremarkable. Differential diagnosis: ?Includes but is not limited to renal colic, ureteral colic, renal stone, ureteral stone, urinary tract infection Following evaluation was ordered: CBC, BMP, liver panel, lipase, urinalysis, CT scan of the abdomen pelvis without IV contrast Patient was initially treated with the following: Naproxen 500 mg orally, oxycodone 5 mg orally and cefuroxime 250 mg orally Course: 21:57 My independent interpretation patient's laboratory evaluation as follows: Normocytic anemia with an H&H of 11 and 35. Elevated BUN 28 with a normal creatinine of 0.82. LFTs and lipase were normal. Urinalysis was positive for blood and leukocyte esterase. Microscopic revealed greater than 20 RBCs, 11-20 WBCs but no bacteria. CT scan of the abdomen pelvis without IV contrast revealed no obstructing ureteral stone on the right, patient has 2 nonobstructing renal calculi on the left. There were incidental pulmonary nodules noted as well. Patient's presentation is consistent with a passed ureteral stone and persistent ureteral colic with urinary tract infection. Patient was prescribed cefuroxime 250 mg q.12h x5 days, naproxen 500 mg q.12 hours as needed for pain and oxycodone 5 mg pills q.6 hours as needed for pain. She was given printed and verbal instructions and discharged home. Admission/Observation Consideration of admission/observation: Escalation of care including admission/observation considered Lab Data [facility] Lab Attestation statement: I reviewed the patient's lab results. 07/28/23 11:07 07/28/23 11:07 Labs: Lab Results 07/28/23 07/28/23 Range/Units 11:07 11:11 WBC 8.6 (4.8-10.8) X10*3/uL RBC 3.97 L (4.20-5.50) X10*6/uL Hgb 11.4 L (12.0-16.0) g/dl Hct 35.8 L (37.0-47.0) % MCV 90.2 (80.0-98.0) fL MCH 28.7 (27.0-33.0) pg MCHC 31.8 (31.0-35.0) g/dl RDW 13.2 (11.0-16.0) % Plt Count 329 D (160-400) X10*3/uL MPV 9.8 (9.4-12.3) fL Immature Gran % (Auto) 0.5 H (0.0-0.4) % Neut % (Auto) 72.2 (45-73) % Lymph % (Auto) 17.5 L (20-40) % Hall % (Auto) 6.5 (2-11) % Eos % (Auto) 3.0 (0-4) % Baso % (Auto) 0.3 (0-2) % Lymph # (Auto) 1.5 (1.2-4.9) X10*3/uL Hall # (Auto) 0.6 (0.1-1.2) X10*3/uL Eos # (Auto) 0.3 (0.0-0.4) X10*3/uL Baso # (Auto) 0.0 (0.0-0.2) X10*3/uL Abs Immat Gran (auto) 0.04 H (0.00-0.03) X10*3/uL Absolute Neuts (auto) 6.2 (2.0-8.3) x10*3/uL Absolute Nucleated RBC 0.000 (0.0-0.012) X10*3/uL Nucleated RBC % (auto) 0.0 (0.0-0.2) /100WBC Sodium 139 (135-145) mmol/L Potassium 4.3 (3.3-5.1) mmol/L Chloride 106 (96-108) mmol/L Carbon Dioxide 26 (22-29) mmol/L Anion Gap 11 L (12-20) BUN 28 H (9-16) mg/dL Creatinine 0.82 (0.5-1.4) mg/dL Estim Creat Clear Calc 71.9 Estimated GFR > 60 Random Glucose 88 (60-115) mg/dL Calcium 9.1 (8.4-10.2) mg/dL Total Bilirubin 0.2 (0.0-1.0) mg/dL Direct Bilirubin < 0.2 (0.0-0.5) mg/dL AST 13 (5-31) U/L ALT 10 (0-31) U/L Alkaline Phosphatase 72 (39-117) U/L Total Protein 8.1 H (6.5-8.0) g/dL Albumin 3.7 (3.5-5.0) g/dL Lipase 29 (8-78) U/L Urine Color Red A Urine Appearance Cloudy Urine pH 6.5 (5.0-9.0) Ur Specific [place] 1.020 (1.005-1.025) Urine Protein 30 (1+) H (Neg-Trace) mg/dL Urine Glucose (UA) Negative (Negative) mg/dL Urine Ketones Negative (Negative) mg/dL Urine Blood Large (3+) H (Negative) Urine Nitrite Negative (Negative) Ur Leukocyte Esterase Small (1+) H (Negative) Urine RBC >20 H (0-2) /HPF Urine WBC 11-20 H (0-5) /HPF Ur Squamous Epith Cells 0-2 (0-2) /HPF Urine Bacteria None Seen (None Seen) Hyaline Casts 0-2 (0-2) /LPF Radiology Impression Discussion of test interpretation with radiology: I have reviewed the radiologist's reading. Radiologist Impression: CT abdomen pelvis wo IV con IMPRESSION: Bibasilar airspace disease, right greater than left, and bronchial wall thickening. Subpleural nodule in the right lower lobe measures 2.0 x 1.2 cm. New small right pleural effusion. Several nonobstructing left renal calculi are present. No hydronephrosis or hydroureter. Constipation. Dictated By: Syeda Hoff MD Chronic Conditions Patient?s care impacted by: Other (HIV disease) Medications Administered Discontinued Medications Generic Name Dose Route Start Last Admin Trade Name Freq PRN Reason Stop Dose Admin Acetaminophen 650 mg 07/28/23 16:12 07/28/23 16:15 Acetaminophen 325 Mg Tablet PO 07/28/23 16:13 650 mg ONCE ONE Administration Discharge Plan Discharge Clinical Impression: Renal colic on right side, Hematuria, Urinary tract infection Patient Disposition: Home, Self-Care Instructions: Renal Colic (ED), Acute Urinary Retention in Women (ED) Additional Instructions: Your blood work was unremarkable. Your urine was positive for red blood cells and white blood cells but no bacteria. Your symptoms are consistent with a past kidney stone and a urinary tract infection. The CT scan did show that you have to kidney stones in your left kidney but these are not causing your pain. Take cefuroxime 250 mg pills, 1 pill every 12 hours for 5 days for urinary tract infection. Take naproxen 500 mg pills, 1 pill every 12 hours as needed for pain. Take oxycodone 5 mg pills, 1 pill every 6 hours as needed for pain. Do not drive or work while taking this medication since they can cause sleepiness. Oxycodone is a narcotic medication that can be addicting. If you are concerned about addiction you can ask the pharmacist for less pills or do not get this prescription filled. Follow-up with your doctor in 2 days. Please return to the emergency department if your symptoms get worse or if you develop any symptoms that are concerning to you. Prescriptions: New cefuroxime axetil 250 mg tablet 250 mg PO Q12H 5 Days Qty: 10 0RF naproxen 500 mg tablet 500 mg PO BID PRN (Reason: pain) 7 Days Qty: 14 0RF oxycodone 5 mg tablet 5 mg PO Q6H PRN (Reason: pain) Qty: 10 0RF Rx Instructions: Patient may request partial refill; Partial Fill upon patient request. No Action fluticasone furoate-vilanterol [Breo Ellipta] 200-25 mcg/dose blister with device 1 inh inhalation DAILY 30 Days Qty: 60 6RF Linzess 145 mcg capsule 145 mcg PO QAM Qty: 30 3RF ondansetron 4 mg tablet,disintegrating 4 mg PO Q6-8H PRN (Reason: nausea and vomiting) Qty: 14 0RF Genvoya [phone] mg tablet 1 tab PO QAM Rx Instructions: with breakfast oxycodone 5 mg Tablet 5 mg PO Q6H PRN (Reason: Pain, Moderate(Pain Scale 4-6)) Qty: 16 0RF Rx Instructions: Partial Fill upon patient request. sulfamethoxazole-trimethoprim [Bactrim DS] 800-160 mg tablet 1 tab PO BID 10 Days Qty: 20 0RF cefuroxime axetil 500 mg tablet 500 mg PO BID 4 Days Qty: 8 0RF guaifenesin [Mucinex] 600 mg tablet extended release 12hr 600 mg PO Q12H PRN (Reason: cough) 3 Days Qty: 6 0RF albuterol sulfate 2.5 mg /3 mL (0.083 %) Solution For Nebulization 2.5 mg INHALATION Q4-6H PRN (Reason: Shortness Of Breath) Qty: 75 0RF meloxicam 15 mg tablet 15 mg PO DAILY Qty: 30 0RF sertraline 100 mg tablet 100 mg PO DAILY PRN (Reason: mood) Qty: 30 0RF meclizine 12.5 mg tablet 12.5 mg PO TID PRN (Reason: Vertigo) Qty: 12 0RF dicyclomine 20 mg tablet 20 mg PO TID Qty: 90 0RF omeprazole 20 mg Capsule,Delayed Release(Dr/Ec) 20 mg PO DAILY Qty: 30 0RF furosemide 20 mg tablet 20 mg PO DAILY 30 Days Qty: 30 6RF fluticasone propionate 110 mcg/actuation HFA aerosol inhaler 2 puff inhalation BID Qty: 12 0RF rosuvastatin [Crestor] 20 mg Tablet 20 mg PO DAILY Qty: 30 0RF zolpidem 10 mg tablet 10 mg PO BEDTIME Qty: 30 0RF loratadine 10 mg Tablet 10 mg PO DAILY Qty: 30 0RF Print Language: Mozambican
[2023-07-28 21:53] VITALS: BP 140/61; PULSE 69; RESP 14; TEMP 37.1; O2SAT 97
[2023-07-28] MEDS: oxyCODONE HCl Immed Release 5 MG TABLET PO (22:07)
[2023-07-28] MEDS: cefuroxime axetiL 250 MG TABLET PO (22:07)
[2023-07-28] MEDS: NaPROXEN 500 MG TABLET PO (22:07)
== END 2023-07-28 22:13 | disposition home or self-care (01) ==
PROVIDERS: Emergency Provider Emergency Medicine Emergency Medical Services; PCP Internal Medicine
DX: N23 Unspecified renal colic (principal); N39.0 Urinary tract infection, site not specified; R31.9 Hematuria, unspecified; Z79.899 Other long term (current) drug therapy
CPT/HCPCS: 36415; 74176; 80048; 80076; 81001; 83690; 85025; 87086; 99284

== ENCOUNTER 2023-08-12 08:40 | Outpatient (AMB) | payer MEDICAID, SELFPAY ==
[2023-08-12 09:26] VITALS: BP 132/80; BMI 31.6
--- NOTE | 2023-08-12 09:26 | MHC.OFFVIS ---
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 Last co testing was in 03/11 LGSIL, followed by colpo/biopsy/ECC which showed RUDI 1 Last pelvic ultrasound done in 06/12 showed the following: The uterus is anteverted and measures 8 x 4 x 5 cm in dimension. Uterine echotexture is heterogeneous. There is a 1.4 x 0.6 x 1.1 cm calcification in the left uterine body probably representing a calcified fibroid. No other focal uterine lesion. Endometrial thickness is normal measuring 0.2 cm. There is trace fluid in the endometrial cavity. There are nabothian cysts in the cervix. The ovaries are not seen. There is no fluid in the pelvis. 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 HIV (human immunodeficiency virus infection) Arthritis History of blood transfusion Anemia Hx of renal calculi Difficulty swallowing GERD (gastroesophageal reflux disease) Hepatitis Depression Sleep apnea Asthma Elevated cholesterol HTN (hypertension) Surgical History Hx of dilation and curettage Hx of section Hx of reduction mammoplasty Hx of tubal ligation Hx of cholecystectomy Hx of colonoscopy Family History Mother Breast cancer Father Heart problem Sister Bone cancer Family/Other Diabetes Social History Household Members: None Housing: Apartment Do you presently have visiting nurse or other home services: No Alcohol intake: current Alcohol intake frequency: does not drink Alcohol type: wine Patient Tobacco Use Status: Former Tobacco user Tobacco use type: Cigarette Cigarette Packs Per Day: 2 Cigarettes Per Day: 40.0 Years Smoked: 40 e-Cigarette/Vaping Use: Never Used Second Hand Smoke Exposure: No service: No Sexual orientation: Straight/Heterosexual Gender identity: Female Female Reproductive History Menstrual Age of Menarche: 12 Date of last menstrual period: 02/15/20 Total pregnancies: 2 Full term: 2 Review of Systems Card Reports as per HPI and Reports no additional complaints Resp Reports as per HPI and Reports no additional complaints GI Reports as per HPI and Reports no additional complaints Reports as per HPI Physical Exam Vital Signs: Last Vital Signs BP 132/80 08/12/23 09:26 BMI result Body Mass Index 31.6 Const General: cooperative, healthy appearing and comfortable Resp Effort & Inspection: normal respiratory effort Auscultation: clear to auscultation bilaterally Percussion: percussion normal Cardio Palpation: normal PMI Rate: regular rate Rhythm: regular rhythm Heart sounds: no murmurs and no rubs Peripheral pulses: Peripheral pulses 2+ throughout GI Inspection: Yes normal to inspection Palpation (GI): Soft to palpation, nontender, no guarding, not rigid and No hepatosplenomegaly present Percussion: Yes normal to percussion Auscultation: normal bowel sounds Rectal Exam - Female: deferred Assessment & Plan Assessment & Plan (1) Postmenopausal bleeding: Code(s): N95.0 - Postmenopausal bleeding Category: Medical Plan: Discussed with the patient the differential diagnosis of post menopausal bleeding with normal pelvic exam including but not limited to, endometrial hyperplasia, cancer, polyps and other causes; Recommended to the patient that the next step is an endometrial sampling via hysteroscopy D&C possible polypectomy versus endometrial biopsy to r/o endometrial pathology including hyperplasia or cancer. All the pros and cons risks and benefits of each approach were discussed with the patient, endometrial biopsy being less invasive, office procedure with less sensitivity and inability diagnose a polyp and removal versus hysteroscopy done under anesthesia more invasive more sensitive to endometrial cancer and possibility of diagnosing and endometrial polyp with the possibility of polypectomy. All questions were answered pt verbalized understanding and decided to proceed with hysteroscopy D&C possible polypectomy/myomectomy Coding Level of Care Code Est Pt Level 3 (94909) Diagnoses Postmenopausal bleeding N95.0
== END 2023-08-12 10:06 | disposition home or self-care (01) ==
LOC: HO.HWS 08:40
PROVIDERS: PCP Internal Medicine; Referring Provider Internal Medicine; Visit Provider Obstetrics & Gynecology
DX: N95.0 Postmenopausal bleeding (principal)
CPT/HCPCS: 99213

== ENCOUNTER → 2023-08-12 08:40 | Outpatient (BNVA) | payer MEDICAID, SELFPAY | PROVIDERS: PCP Internal Medicine; Visit Provider Obstetrics & Gynecology | DX: N95.0 Postmenopausal bleeding (principal) | CPT/HCPCS: 99212 ==

== ENCOUNTER 2023-08-13 09:39 | Outpatient (REF) | payer MEDICAID, SELFPAY ==
[2023-08-13 09:55] LABS: MANUAL DIFF FLAG NO
[2023-08-13 10:20] LABS: Appearance Urine Cloudy; Color Urine Yellow; Glucose Urine UA Negative (Negative); Leukocyte Esterase Urine Large (3+) (Negative); Nitrite Urine Positive (Negative); PH 6.5 (5.0-9.0); Specific Gravity - Urine 1.015 (1.005-1.025); UMIC TRIGGER UA YES; Urine Blood Trace (Negative); Urine Ketones Negative (Negative); Urine Protein Negative (Neg-Trace)
[2023-08-13 10:23] LABS: Bacteria Urine 4+ (None Seen); Hyaline Casts Urine 0-2 /LPF (0-2); Squamous Epithelial Cell Urine 0-2 /HPF (0-2); WBC Urine >50 /HPF (0-5)
[2023-08-13 10:37] LABS: Basophils Percent Auto 0.4 % (0-2); Eosinophils Absolute Auto 0.4 X10*3/uL (0.0-0.4); Hematocrit 37.5 % (37.0-47.0); Imm Gran Abs Auto 0.02 X10*3/uL (0.00-0.03); Imm Gran Pct Auto 0.4 % (0.0-0.4); Lymphocytes Absolute Auto 1.4 X10*3/uL (1.2-4.9); Lymphocytes Percent Auto 27.1 % (20-40); Mean Corpuscular Hemoglobin 28.7 pg (27.0-33.0); Mean Corpuscular Volume 89.7 fL (80.0-98.0); Mean Platelet Volume 10.9 fL (9.4-12.3); Monocytes Absolute Auto 0.4 X10*3/uL (0.1-1.2); Monocytes Percent Auto 7.6 % (2-11); Neutrophils Percent Auto 56.5 % (45-73); Platelet Count 213 X10*3/uL (160-400); Red Blood Count 4.18 X10*6/uL (4.20-5.50); Red Cell Distribution Width 14.1 % (11.0-16.0); White Blood Count 5.2 X10*3/uL (4.8-10.8)
[2023-08-13 11:17] LABS: Alanine Aminotransferase 14 U/L (0-31); Albumin Level 3.9 g/dL (3.5-5.0); Alkaline Phosphatase 78 U/L (39-117); Anion Gap 9 (12-20); Aspartate Amino Transferase 25 U/L (5-31); Bilirubin Total 0.2 mg/dL (0.0-1.0); Blood Urea Nitrogen 22 mg/dL (9-16); Calcium 9.3 mg/dL (8.4-10.2); Carbon Dioxide 29 mmol/L (22-29); Chloride 108 mmol/L (96-108); Cholesterol 212 mg/dL (<200); Estimated Glomerular Filt Rate > 60; Glucose Random 96 mg/dL (60-115); HDL Cholesterol 58 mg/dL (>40); LDL Cholesterol Calculated 125 mg/dL (<100); Potassium 4.2 mmol/L (3.3-5.1); Sodium 142 mmol/L (135-145); Total Protein 8.4 g/dL (6.5-8.0); Triglycerides 149 mg/dL (<150)
== END 2023-08-13 09:40 | disposition home or self-care (01) ==
LOC: HO.LAB 09:39
PROVIDERS: Absent Provider Internal Medicine; PCP Internal Medicine; Visit Provider Urology
DX: R30.0 Dysuria (principal); N39.0 Urinary tract infection, site not specified; R39.9 Unspecified symptoms and signs involving the genitourinary system; D69.6 Thrombocytopenia, unspecified; E78.00 Pure hypercholesterolemia, unspecified; J84.9 Interstitial pulmonary disease, unspecified; N20.0 Calculus of kidney; G47.62 Sleep related leg cramps
CPT/HCPCS: 36415; 80053; 80061; 81001; 85025; 87086; 87088; 87186

== ENCOUNTER 2023-08-27 10:51 | Day surgery (SDC) | payer MEDICAID, SELFPAY ==
[2023-08-25 10:49] VITALS: BMI 31.7
--- NOTE | 2023-08-25 12:11 | HO.ANESPROP2 ---
Documented by User: Tonja Rajan NP 08/25/23 12:12 HPI - Anesthesia Eval Consult details Narrative: 63yo F for D&C Hysteroscopy,possible myomectomy,possible polypectomy s/p cysto hydrodistention 03/2023 with GA-LMA 4 PMFSH Active Problems Active Problems: All Active Problems Postmenopausal bleeding (Acute) Dysplasia of cervix, low grade (RUID 1) (Acute) LGSIL on Pap smear of cervix (Acute) Endometrial thickening on ultrasound (Acute) Cystitis (Acute) Dysuria (Acute) Encounter for preoperative pulmonary examination (Acute) Reactive airway disease (Acute) Dyspnea on exertion (Acute) Urinary tract infection symptoms (Acute) Pelvic pain (Acute) H/O recurrent pneumonia (Acute) Personal history of tobacco use (Acute) Interstitial lung disease (Acute) Emphysema lung (Acute) Abdominal bloating (Acute) Varicose veins of right lower extremity with inflammation (Acute) Osteoarthritis of left knee (Acute) Primary osteoarthritis of hands, bilateral (Acute) Chronic idiopathic constipation (Acute) Serrated polyp of colon (Acute) Bilateral nephrolithiasis (Acute) Uterine fibroid (Acute) Hematuria (Acute) Fibromyalgia (Acute) 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) Hepatitis (Acute) Depression (Acute) Asthma (Acute) Arthritis (Acute) Anemia (Acute) Elevated cholesterol (Acute) GERD (gastroesophageal reflux disease) (Acute) Sleep apnea (Acute) HTN (hypertension) (Acute) HIV (human immunodeficiency virus infection) (Acute) Hx of colonoscopy (Acute) Past Medical History 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 HIV (human immunodeficiency virus infection) Arthritis History of blood transfusion Anemia Hx of renal calculi Difficulty swallowing GERD (gastroesophageal reflux disease) Hepatitis Depression Sleep apnea Asthma Elevated cholesterol HTN (hypertension) Family History Family History Mother Breast cancer Father Heart problem Sister Bone cancer Family/Other Diabetes Family history of problems with anesthesia: No Surgical History Surgical History Hx of cystoscopy Hx of dilation and curettage Hx of section Hx of reduction mammoplasty Hx of tubal ligation Hx of cholecystectomy Hx of colonoscopy History of Problems with Anesthesia: No Social History Social History Household Members: None Housing: Apartment Do you presently have visiting nurse or other home services: No Alcohol intake: current Alcohol intake frequency: does not drink Alcohol type: wine Patient Tobacco Use Status: Former Tobacco user Tobacco use type: Cigarette Cigarette Packs Per Day: 2 Cigarettes Per Day: 40.0 Years Smoked: 40 e-Cigarette/Vaping Use: Never Used Second Hand Smoke Exposure: No Are you DNR?: No Advance Directives: No Advance Directives Information Provided: Yes Nutrition Risks: No Nutritional Risk service: No Sexual orientation: Straight/Heterosexual Gender identity: Female Meds Allergies Allergy/AdvReac Type Severity Reaction Status Date / Time shellfish derived Allergy Intermediate HIVES, N/V Verified 08/27/23 11:20 Home Medications ?Medication ?Instructions ?Recorded ?Confirmed ?Last Taken ?Type elviteg 150 mg-cob 150 mg-emtricit 1 tab PO QAM 07/17/23 08/25/23 Unknown History 200 mg-tenofo alafenam 10 mg tablet (Genvoya) Exam Height,Weight and Vital Signs: Height 5 ft 3 in Weight 81.193 kg Narrative Narrative: EKG 06/2023 Vent. Rate : 066 BPM Atrial Rate : 066 BPM P-R Int : 156 ms QRS Dur : 094 ms QT Int : 386 ms P-R-T Axes : 075 -36 028 degrees QTc Int : 404 ms Normal sinus rhythm Left axis deviation Nonspecific ST abnormality Abnormal ECG When compared with ECG of 16-JUL-2023 18:58, No significant change was found Assessment and Plan Assessment Anesthesia Assessment: Chart Reviewed Final Anesthetic Review Family History of Problems with Anesthesia: No History of Problems with Anesthesia: No Documented by User: Debra Pham MD 08/27/23 13:11 PMFSH Active Problems Active Problems: All Active Problems Postmenopausal bleeding (Acute) Dysplasia of cervix, low grade (RUDI 1) (Acute) LGSIL on Pap smear of cervix (Acute) Endometrial thickening on ultrasound (Acute) Cystitis (Acute) Dysuria (Acute) Encounter for preoperative pulmonary examination (Acute) Reactive airway disease (Acute) Dyspnea on exertion (Acute) Urinary tract infection symptoms (Acute) Pelvic pain (Acute) H/O recurrent pneumonia (Acute) Personal history of tobacco use (Acute) Interstitial lung disease (Acute) Emphysema lung (Acute) Abdominal bloating (Acute) Varicose veins of right lower extremity with inflammation (Acute) Osteoarthritis of left knee (Acute) Primary osteoarthritis of hands, bilateral (Acute) Chronic idiopathic constipation (Acute) Serrated polyp of colon (Acute) Bilateral nephrolithiasis (Acute) Uterine fibroid (Acute) Hematuria (Acute) Fibromyalgia (Acute) 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 HIV (human immunodeficiency virus infection) Arthritis History of blood transfusion Anemia Hx of renal calculi Difficulty swallowing GERD (gastroesophageal reflux disease) Hepatitis Depression Sleep apnea Asthma Elevated cholesterol HTN (hypertension) Family History Family History Mother Breast cancer Father Heart problem Sister Bone cancer Family/Other Diabetes Family history of problems with anesthesia: No Surgical History Surgical History Hx of cystoscopy Hx of dilation and curettage Hx of section Hx of reduction mammoplasty Hx of tubal ligation Hx of cholecystectomy Hx of colonoscopy History of Problems with Anesthesia: No Social History Social History Household Members: None Housing: Apartment Do you presently have visiting nurse or other home services: No Alcohol intake: current Alcohol intake frequency: does not drink Alcohol type: wine Patient Tobacco Use Status: Former Tobacco user Tobacco use type: Cigarette Cigarette Packs Per Day: 2 Cigarettes Per Day: 40.0 Years Smoked: 40 e-Cigarette/Vaping Use: Never Used Second Hand Smoke Exposure: No Are you DNR?: No Advance Directives: No Advance Directives Information Provided: Yes Nutrition Risks: No Nutritional Risk service: No Sexual orientation: Straight/Heterosexual Gender identity: Female Meds Allergies Allergy/AdvReac Type Severity Reaction Status Date / Time shellfish derived Allergy Intermediate HIVES, N/V Verified 08/27/23 11:20 Home Medications ?Medication ?Instructions ?Recorded ?Confirmed ?Last Taken ?Type elviteg 150 mg-cob 150 mg-emtricit 1 tab PO QAM 07/17/23 08/25/23 Unknown History 200 mg-tenofo alafenam 10 mg tablet (Genvoya) Exam Height,Weight and Vital Signs: Height 5 ft 3 in Weight 81.193 kg Vital Signs Temp Pulse Resp BP Pulse Ox O2 Del Method 08/27/23 12:08 98.1 F 59 18 147/90 H 96 Room Air Airway Mallampati Class: II TM Dist: >3cm Neck ROM: Full Partial: Upper and Lower Loose/Missing/Broken Teeth: Yes Heart: RRR Lungs: CTAB Assessment and Plan Assessment Anesthesia Assessment: Anesthesia Plan Discussed and Chart Reviewed Final Anesthetic Review Family History of Problems with Anesthesia: No History of Problems with Anesthesia: No NPO: Yes ASA Class: III Final Preanesthetic Review: No Changes in Pt Med Stat, Meds/Allgs Chart Reviewed, Consent Obtained/Reviewed and Anes Risks/Benef Reviewed Patient Risk: Intermediate Procedure Risk: Low Assessment/Block/Sedation in SS: Assess/Block/Sedation-SS Anesthetic Plan Anesthetic Plan: GA Disposition: Standard PACU
[2023-08-27 11:46] VITALS: BMI 31.4
[2023-08-27] MEDS: Lactated Ringers 1,000 ML 100 ML IVCONT (11:58)
[2023-08-27 12:08] VITALS: BP 147/90; PULSE 59; RESP 18; TEMP 36.7; O2SAT 96
--- NOTE | 2023-08-27 12:21 | MHC.SHP ---
Pre-Procedural Eval Section A - 24 Hr Update-Section A only Date of Service: 08/27/23 The patient is an INPATIENT: No Changes since office visit: No Cold of Flu in the past 2 weeks, No New Medical Problems, No Changes in Medication and No Patient answered all questions The patient has been examined within 24 hours of the surgical procedure. The History & Physical has been completed within 30 days and I have reviewed it.: Yes Section B - Complete if H&P > 30 days Chief Complaint: Postmenopausal bleeding Allergies: Allergies Allergy/AdvReac Type Severity Reaction Status Date / Time shellfish derived Allergy Intermediate HIVES, N/V Verified 08/27/23 11:20 Plan Diagnosis/Plan: Unchanged I have reviewed the history and physical and performed a pertinent physical examination on my patient. No changes have occurred unless specified. Time Spent With Patient Time: Total time managing care of this patient today ____ minutes.
--- NOTE | 2023-08-27 13:47 | P.BOP_ITS ---
Brief Operative Note Date of Service: 08/27/23 Pre-op diagnosis: Postmenopausal bleed Post-op diagnosis: same (Normal endometrial cavity with no evidence of pathology) Procedure: Hysteroscopy D&C Surgeon: Percy Strong MD Anesthesia: GLMA Was an Web Applications Administrator used for this Procedure?: No Estimated blood loss (mL): 0 Pathology: other (Endometrial Scrapping) Condition: stable Disposition: PACU
--- NOTE | 2023-08-27 13:47 | W.PM.OPN ---
Operative Note Operative Note Date of Service: 08/27/23 Narrative: Preop Diagnosis: Post Menopausal bleeding Operation: Diagnostic Hysteroscopy, Dilataion & Curettage Post Op Diagnosis: Normal endometrial cavity QBL: Minimal Anesthesia: GLMA Surgeon: Percy Strong MD Brooch And Bracelet Maker: None Complication: None Pathology: Endometrial Scrapings Procedure: The patient was put in the dorsal lithotomy position, scrubbed, and draped in the usual manner. A sterile speculum was inserted in the patient's vagina. The anterior lip of the cervix was grasped with a single tooth tenaculum. The cervix was dilated up to 5 mm, then the scope was inserted in the patient's uterus. Inspection revealed Normal endometrial cavity. The Myosure Reach device was used; the scope was removed from the endometrial cavity , sharp curettings was carried on with minimal to moderate amount of tissues retrieved. At the end of the procedure, all instruments were taken out of the patient uterine and vaginal cavity. The single tooth tenaculum was removed and homeostasis was assured using pressure,. The patient tolerated the procedure well and was transferred to the PACU in a stable condition.
[2023-08-27 13:55] VITALS: BP 118/68; PULSE 56; RESP 16; TEMP 36.1; O2SAT 100
[2023-08-27 14:00] VITALS: BP 126/72; PULSE 54; RESP 16; O2SAT 100
[2023-08-27] MEDS: ondansetron HCL 4 MG/2 ML VIAL IVPUSH (14:03)
[2023-08-27 14:05] VITALS: BP 131/72; PULSE 56; RESP 17; O2SAT 98
[2023-08-27 14:10] VITALS: BP 142/76; PULSE 57; RESP 17; O2SAT 100
[2023-08-27 14:30] VITALS: BP 146/83; PULSE 57; RESP 18; TEMP 36.1; O2SAT 100
== END 2023-08-27 14:49 | disposition home or self-care (01) ==
PROVIDERS: PCP Internal Medicine; Visit Provider Obstetrics & Gynecology
PROC: 0UDB8ZZ Extraction of Endometrium, Via Natural or Artificial Opening Endoscopic (ICD-10-PCS; CPT 58558; principal; 2023-08-27 13:00)
DX: N95.0 Postmenopausal bleeding (principal); I10 Essential (primary) hypertension; D64.9 Anemia, unspecified; M79.7 Fibromyalgia; B20 Human immunodeficiency virus [HIV] disease; J45.909 Unspecified asthma, uncomplicated; F32.A Depression, unspecified; Z79.899 Other long term (current) drug therapy; Z98.890 Other specified postprocedural states; Z87.891 Personal history of nicotine dependence
CPT/HCPCS: 58558; 88305; J1100; J2405; J2704; J3010

== ENCOUNTER → 2023-08-27 10:51 | Outpatient (BNV) | payer MEDICAID, SELFPAY | PROVIDERS: PCP Internal Medicine; Visit Provider Obstetrics & Gynecology | DX: N95.0 Postmenopausal bleeding (principal) | CPT/HCPCS: 58558 ==

== ENCOUNTER 2023-09-16 08:57 | Outpatient (AMB) | payer MEDICAID, SELFPAY ==
--- NOTE | 2023-09-16 09:26 | A.OFFVIS_ITS ---
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 HIV (human immunodeficiency virus infection) Arthritis History of blood transfusion Anemia Hx of renal calculi Difficulty swallowing GERD (gastroesophageal reflux disease) Hepatitis Depression Sleep apnea Asthma Elevated cholesterol HTN (hypertension) Surgical History Hx of cystoscopy Hx of dilation and curettage Hx of section Hx of reduction mammoplasty Hx of tubal ligation Hx of cholecystectomy Hx of colonoscopy Family History Mother Breast cancer Father Heart problem Sister Bone cancer Family/Other Diabetes Social History Household Members: None Housing: Apartment Do you presently have visiting nurse or other home services: No Alcohol intake: current Alcohol intake frequency: does not drink Alcohol type: wine Patient Tobacco Use Status: Former Tobacco user Tobacco use type: Cigarette Cigarette Packs Per Day: 2 Cigarettes Per Day: 40.0 Years Smoked: 40 e-Cigarette/Vaping Use: Never Used Second Hand Smoke Exposure: No service: No Sexual orientation: Straight/Heterosexual Gender identity: Female Female Reproductive History Menstrual Age of Menarche: 12 Assessment & Plan Assessment & Plan Orders: Orders AMB Urinalysis Automated Today Z13.9 - Encounter for screening, unspecified Coding
--- NOTE | 2023-09-16 09:31 | A.OFFVIS_ITS ---
Intake Visit Reasons: Recurrent UTI/CT Scan Results Intake Note: Patient presents today for a follow-up on Recurrent UTI & CT Scan Results: Meds- Pyridium Allergies to Antibiotic- No Known Allergies Blood Thinner- None Supplier Diversity Director Required: Yes Supplier Diversity Director Language: Enterprise Sales Executive Name: Margarita Mc, Prashanth/CMJw Information Interpreted: non-clinical & clinical Accompanied by: Self / Same As Patient Allergies shellfish derived Allergy (Intermediate, Verified 09/16/23 09:32) QUYEN, N/V HPI Comments Details: --[place] is a 63-year-old female is being followed for nephrolithiasis, recurrent UTI's, pelvic pain. Reviewed CT KUB --07/28/23--right kidney is unremarkable. several nonobstructing left renal calculi. There are at least 5 calculi, ranging in size from 3 mm to 5 mm in the mid to lower pole. No left hydronephrosis or hydroureter. Discussed Left ESWL. Discussed risks to include but not limited to, blood in the urine, bruising to the skin, kidney hematoma, possible need for another procedure if a stone fragment obstructs the ureter while passing, possible need to repeat procedure if stone is not completely fragmented. Certified circus performer present. Review of chart: 06/14/23--Niuean-speaking female, certified circus performer present, the patient was placed on suppressive nitrofurantoin 50 mg daily for chronic cystitis. She states that painful urination has improved. She has a history of bilateral kidney stones she denies gross blood in the urine. Urinalysis today -- leukocytes 1+, blood 1+. Macrobid 50 mg daily suppressive Abx therapy. Surveillance urine culture. Monitor kidney stones renal ultrasound and KUB follow-up in 3 months 04/15/23-- she is s/p outpatient cystoscopy - findings c/w cystitis follicularis. The patient was started on Macrobid. urine c/s sent reviewed. Certified circus performer was present during the visit. The patient states bladder pain is improving. I have discussed continue macrobid antibiotic suppressive therapy. Her past medical history includes nicotine dependency, fibromyalgia, approximate 30 pack year smoker with underlying history of HIV on antivirals under the care of [facility], Breast cancer s/p lumpectomy in 2013 and multiple occurrences of hospitalizations for pneumonia, who is followed by Pulmonary. CAT scan done on 09/18/22 noting bilateral kidney stones.?--done without IV contrast -- Multiple 1 mm right kidney stones and multiple left kidney stones, the largest measuring 6 mm.? 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 HIV (human immunodeficiency virus infection) Arthritis History of blood transfusion Anemia Hx of renal calculi Difficulty swallowing GERD (gastroesophageal reflux disease) Hepatitis Depression Sleep apnea Asthma Elevated cholesterol HTN (hypertension) Surgical History Hx of cystoscopy Hx of dilation and curettage Hx of section Hx of reduction mammoplasty Hx of tubal ligation Hx of cholecystectomy Hx of colonoscopy Family History Mother Breast cancer Father Heart problem Sister Bone cancer Family/Other Diabetes Social History Household Members: None Housing: Apartment Do you presently have visiting nurse or other home services: No Alcohol intake: current Alcohol intake frequency: does not drink Alcohol type: wine Patient Tobacco Use Status: Former Tobacco user Tobacco use type: Cigarette Cigarette Packs Per Day: 2 Cigarettes Per Day: 40.0 Years Smoked: 40 e-Cigarette/Vaping Use: Never Used Second Hand Smoke Exposure: No service: No Sexual orientation: Straight/Heterosexual Gender identity: Female Female Reproductive History Menstrual Age of Menarche: 12 Review of Systems Const All systems reviewed & are unremarkable except as noted in HPI and below Reports no additional complaints Eyes Reports no additional complaints ENT Reports no additional complaints Card Reports no additional complaints Resp Reports no additional complaints GI Reports no additional complaints Reports as per HPI Musc Reports no additional complaints Skin/Breast Reports system reviewed and no additional complaints, except as documented Neuro Reports no additional complaints Psych Reports no additional complaints Endo Reports no additional complaints Flaquito/Lymph Reports no additional complaints Aller/Immun Reports no additional complaints Results AMB Urinalysis, Automated UA Leukoctes 125 Og/uL Last Edit by EMILY Hernandez on 09/16/23 09:39 2+ Margarita Mc 09/16/23 09:39 UA Nitrite Negative Last Edit by EMILY Hernandez on 09/16/23 09:39 UA Urobilinogen 0.2 mg/dL Last Edit by EMILY Hernandez on 09/16/23 09:3 9 UA Protein 15 mg/dL Last Edit by EMILY Hernandez on 09/16/23 09:39 UA pH 7.5 Last Edit by Margarita Mc Prashanth on 09/16/23 09:39 UA Blood 25 [place]/uL Last Edit by Margarita Mc Prashanth on 09/16/23 09:39 1+ Margarita Mc 09/16/23 09:39 UA Specific [place] 1.010 Last Edit by Margarita Mc Prashanth on 09/16/23 09: 39 UA Ketone Negative Last Edit by EMILY Hernandez on 09/16/23 09:39 UA Bilirubin 0 mg/dL Last Edit by EMILY Hernandez on 09/16/23 09:39 UA Glucose 0 mg/dL Last Edit by Margarita Mc Prashanth on 09/16/23 09:39 Results Reviewed Results Reviewed: Laboratory Last Values Urine pH (Auto) 7.5 09/16/23 09:37 Specific [place] (Auto) 1.010 09/16/23 09:37 Urine Protein (Auto) 15 mg/dL 09/16/23 09:37 Glucose (UA)(Auto) 0 mg/dL 09/16/23 09:37 Urine Ketones (Auto) Negative 09/16/23 09:37 Urine Blood (Auto) 25 [place]/uL 09/16/23 09:37 Urine Nitrite (Auto) Negative 09/16/23 09:37 Urine Bilirubin (Auto) 0 mg/dL 09/16/23 09:37 Urine Urobilinogen (Auto) 0.2 mg/dL 09/16/23 09:37 Leukocyte Esterase (Auto) 125 Og/uL 09/16/23 09:37 Date of Service: 07/28/23 EXAMINATION: CT ABDOMEN AND PELVIS WITHOUT CONTRAST CLINICAL INFORMATION: Right renal calculus. COMPARISON: 07/18/2023 TECHNIQUE: Multidetector volumetric imaging was performed from the superior aspect of the liver through the pubic symphysis. Sagittal and coronal reformatted images were obtained on the technologist's workstation. This CT examination was performed using dose optimization techniques as appropriate, variously including the following: *Automated exposure control *Adjustment of mA and/or kV according to patient size (this includes techniques or standardized protocols for targeted exams where dose is matched to indication/reason for exam; i.e. extremities or head) *Use of iterative reconstruction technique DLP: 993 mGy-cm FINDINGS: Motion artifact technically degrades image quality. LUNG BASES: There is bibasilar airspace disease and bronchial wall thickening. Subpleural nodule in the right lower lobe measures 2.0 x 1.2 cm. New small right pleural effusion. LIVER, GALLBLADDER, AND BILIARY TREE: The noncontrast liver is normal in size and contour. No biliary ductal dilatation is present. The gallbladder is surgically absent. PANCREAS: Unremarkable. SPLEEN: Not enlarged. ADRENAL GLANDS: No adrenal mass. KIDNEYS AND URETERS: The right kidney is unremarkable. There are several nonobstructing left renal calculi. There are at least 5 calculi ranging in size from 3 mm to 5 mm in the mid to lower pole. No left hydronephrosis or hydroureter. 4.3 cm upper pole left renal cyst. BLADDER: No bladder calculus. GASTROINTESTINAL TRACT: No small bowel obstruction. Copious stool throughout the colon. ABDOMINAL WALL: No significant hernia is appreciated. LYMPH NODES: No bulky lymphadenopathy. VASCULAR: Normal caliber abdominal aorta. PELVIC VISCERA: No large adnexal masses are appreciated. OSSEOUS STRUCTURES: No destructive bone lesions. Fatty atrophy of the right lateral chest wall musculature. IMPRESSION: Bibasilar airspace disease, right greater than left, and bronchial wall thickening. Subpleural nodule in the right lower lobe measures 2.0 x 1.2 cm. New small right pleural effusion. Several nonobstructing left renal calculi are present. No hydronephrosis or hydroureter. Constipation. Ordered:? Urine Culture? Procedure?Result?Verified?Site ? Urine Culture? Final?11/09/22 ? ? ?Organism 1?Escherichia coli ? Quant?> 100,000 cfu/mL ? ESBL Note:? NOTE: Extended-Spectrum Beta-Lactamase enzyme present ? E coli? M.I.C.? ? RX? --------- ---?Ampicillin?>=32?R?Ceftriaxone? >=64?R?Ertapenem? <=0.12? ? ?S?Gentamicin?<=1? S?Levofloxacin?1? I?Nitrofurantoin?<=16?S?Trimethoprim/Sulfamethoxazole? <=20?S Assessment & Plan Assessment & Plan (1) Pelvic pain: Code(s): R10.2 - Pelvic and perineal pain Category: Medical (2) Urinary tract infection symptoms: Code(s): R39.9 - Unspecified symptoms and signs involving the genitourinary system Category: Medical (3) Cystitis: Code(s): N30.90 - Cystitis, unspecified without hematuria Category: Medical (4) Kidney stone on left side: Code(s): N20.0 - Calculus of kidney Category: Medical Plan Left ESEL, preop EKG Orders: Orders Urine Culture 09/16/23 N39.0 - Urinary tract infection, site not specified ECG 12 lead EKG Today N20.0 - Calculus of kidney AMB Urinalysis Automated 09/16/23 Z13.9 - Encounter for screening, unspecified Patient Instructions: The patient had an opportunity to ask questions regarding treatment plan. The patient expressed understanding and agreement with the above treatment plan. The patient is aware they should contact our office by phone for worsening of their current condition or the appearance of new symptoms. Compliance is encouraged with any medications and followup testing that is ordered. It is a privilege to be allowed the opportunity to participate in the urologic care of your patient. If you have any questions or concerns regarding treatment for the above conditions please do not hesitate to contact me. The office telephone contact is [phone]. This note is constructed in part using voice recognition software. While every effort has been made to ensure accuracy retail tire sales manager errors may have been included. Yours sincerely, Cornelia Fields MD Coding Level of Care Code Est Pt Level 4 (70151) Diagnoses Pelvic pain R10.2 Urinary tract infection symptoms R39.9 Cystitis N30.90 Kidney stone on left side N20.0
== END 2023-09-16 10:51 | disposition home or self-care (01) ==
PROVIDERS: PCP Internal Medicine; Referring Provider Internal Medicine; Visit Provider Urology
DX: R10.2 Pelvic and perineal pain (principal); R39.9 Unspecified symptoms and signs involving the genitourinary system; N30.90 Cystitis, unspecified without hematuria; N20.0 Calculus of kidney
CPT/HCPCS: 99214

== ENCOUNTER 2023-09-16 08:57 | Outpatient (REF) | payer MEDICAID, SELFPAY | END 2023-09-16 08:58 | disposition home or self-care (01) | LOC: HO.LAB 08:57 | PROVIDERS: PCP Internal Medicine; Visit Provider Urology | DX: N30.90 Cystitis, unspecified without hematuria (principal); R10.2 Pelvic and perineal pain; R39.9 Unspecified symptoms and signs involving the genitourinary system; N20.0 Calculus of kidney | CPT/HCPCS: 81003; 87086; 99212 ==

== ENCOUNTER 2023-09-23 14:35 | Outpatient (AMB) | payer MEDICAID, SELFPAY ==
--- NOTE | 2023-09-23 14:35 | MHC.OFFVIS ---
Intake Visit Reasons: post op Allergies shellfish derived Allergy (Intermediate, Verified 09/16/23 09:32) HIVES, N/V HPI Comments Details: The patient scheduled tele health visit post hysteroscopy D&C no complaints minimal vaginal bleeding no feverishness chills or abdominal pain. 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 HIV (human immunodeficiency virus infection) Arthritis History of blood transfusion Anemia Hx of renal calculi Difficulty swallowing GERD (gastroesophageal reflux disease) Hepatitis Depression Sleep apnea Asthma Elevated cholesterol HTN (hypertension) Surgical History Hx of cystoscopy Hx of dilation and curettage Hx of section Hx of reduction mammoplasty Hx of tubal ligation Hx of cholecystectomy Hx of colonoscopy Family History Mother Breast cancer Father Heart problem Sister Bone cancer Family/Other Diabetes Social History Household Members: None Housing: Apartment Do you presently have visiting nurse or other home services: No Alcohol intake: current Alcohol intake frequency: does not drink Alcohol type: wine Patient Tobacco Use Status: Former Tobacco user Tobacco use type: Cigarette Cigarette Packs Per Day: 2 Cigarettes Per Day: 40.0 Years Smoked: 40 e-Cigarette/Vaping Use: Never Used Second Hand Smoke Exposure: No service: No Sexual orientation: Straight/Heterosexual Gender identity: Female Female Reproductive History Menstrual Age of Menarche: 12 Review of Systems Const All systems reviewed & are unremarkable except as noted in HPI and below Reports as per HPI and Reports no additional complaints GI Reports no additional complaints Reports no additional complaints Telehealth Telehealth Telehealth Platform: Telephone Location of provider rendering services: practice address Location of patient: address on file Patient Identification confirmed using: Name, : Yes Telehealth method: voice only Patient verbally consented to treatment: Yes Patient verbally consented to billing insurance company: Yes Patient informed of any privacy concerns related to visit: Yes Assessment & Plan Assessment & Plan (1) Postmenopausal bleeding: Code(s): N95.0 - Postmenopausal bleeding Category: Medical Plan: Discussed with the patient the intraoperative findings showing normal endometrial cavity with no evidence of abnormalities, in addition the results of the D and C pathology showing inactive endometrium. Discussed with the patient the sensitivity, specificity, positive and negative predictive value, of endometrial biopsy in detecting endometrial pathology including but not limited to endometrial hyperplasia, cancer and other pathology; instructed the patient to call in case vaginal bleeding bleeding recurs, the next step will be to proceed with a diagnostic hysteroscopy/D&C for further endometrial sampling evaluation to rule out endometrial pathology. All questions answered and the patient verbalized understanding and agreed with the plan. I spent a total of 20 minutes reviewing the chart, talking to the patient via phone and documenting in the medical record. Coding Level of Care Code Tele Est Pt Level 1 (37780) Diagnoses Postmenopausal bleeding N95.0
== END 2023-09-23 15:48 | disposition home or self-care (01) ==
LOC: HO.HWS 14:35
PROVIDERS: PCP Internal Medicine; Visit Provider Obstetrics & Gynecology
DX: N95.0 Postmenopausal bleeding (principal)
CPT/HCPCS: 99211

== ENCOUNTER → 2023-09-23 14:35 | Outpatient (BNVA) | payer MEDICAID, SELFPAY | PROVIDERS: PCP Internal Medicine; Visit Provider Obstetrics & Gynecology ==

== ENCOUNTER 2023-10-20 05:57 | Day surgery (SDC) | payer MEDICAID, SELFPAY ==
[2023-10-18 13:51] VITALS: BMI 31.4
--- NOTE | ~2023-10-20 | XR_ITS ---
EXAMINATION: XR ABDOMEN KUB CLINICAL INDICATION: Left renal calculi. COMPARISON: CT abdomen and pelvis of 07/28/2023. TECHNIQUE: 2 AP views of the abdomen. FINDINGS: Surgical clips right upper quadrant. Moderate amount of stool in the colon. Nonobstructive bowel gas pattern. Multiple small calculi overlying the mid to lower pole of the left kidney measuring up to 5 mm. No definitive right renal calculi appreciated, although visualization is limited due to overlying bowel. Small pelvic calcifications are likely vascular. XR/XR KUB IMPRESSION: Redemonstration of left nephrolithiasis.
[2023-10-20 06:40] VITALS: BP 131/75; PULSE 62; RESP 18; TEMP 36.1; O2SAT 97
[2023-10-20] MEDS: Lactated Ringers 500 ML 999 ML IV (07:57)
--- NOTE | 2023-10-20 08:28 | HO.ANESPROP2 ---
HPI - Anesthesia Eval Consult details Narrative: for left ESWL PMFSH Active Problems Active Problems: All Active Problems Kidney stone on left side (Acute) Postmenopausal bleeding (Acute) Dysplasia of cervix, low grade (RUDI 1) (Acute) LGSIL on Pap smear of cervix (Acute) Endometrial thickening on ultrasound (Acute) Cystitis (Acute) Dysuria (Acute) Encounter for preoperative pulmonary examination (Acute) Reactive airway disease (Acute) Dyspnea on exertion (Acute) Urinary tract infection symptoms (Acute) Pelvic pain (Acute) H/O recurrent pneumonia (Acute) Personal history of tobacco use (Acute) Interstitial lung disease (Acute) Emphysema lung (Acute) Abdominal bloating (Acute) Varicose veins of right lower extremity with inflammation (Acute) Osteoarthritis of left knee (Acute) Primary osteoarthritis of hands, bilateral (Acute) Chronic idiopathic constipation (Acute) Serrated polyp of colon (Acute) Bilateral nephrolithiasis (Acute) Uterine fibroid (Acute) Hematuria (Acute) Fibromyalgia (Acute) 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) Hepatitis (Acute) Depression (Acute) Asthma (Acute) Arthritis (Acute) Anemia (Acute) Elevated cholesterol (Acute) GERD (gastroesophageal reflux disease) (Acute) Sleep apnea (Acute) HTN (hypertension) (Acute) HIV (human immunodeficiency virus infection) (Acute) Hx of colonoscopy (Acute) Past Medical History 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 HIV (human immunodeficiency virus infection) Arthritis History of blood transfusion Anemia Hx of renal calculi Difficulty swallowing GERD (gastroesophageal reflux disease) Hepatitis Depression Sleep apnea Asthma Elevated cholesterol HTN (hypertension) Family History Family History Mother Breast cancer Father Heart problem Sister Bone cancer Family/Other Diabetes Family history of problems with anesthesia: No Surgical History Surgical History (Updated 10/18/23 @ 13:50 by Jocelynn Sanchez RN) Hx of cystoscopy Hx of dilation and curettage Hx of section Hx of reduction mammoplasty Hx of tubal ligation Hx of cholecystectomy Hx of colonoscopy History of Problems with Anesthesia: No Social History Social History Household Members: None Housing: Apartment Do you presently have visiting nurse or other home services: No Alcohol intake: current Alcohol intake frequency: does not drink Alcohol type: wine Patient Tobacco Use Status: Former Tobacco user Tobacco use type: Cigarette Cigarette Packs Per Day: 2 Cigarettes Per Day: 40.0 Years Smoked: 40 e-Cigarette/Vaping Use: Never Used Second Hand Smoke Exposure: No Use of substances other than those prescribed or required for medical reasons: No Are you DNR?: No Advance Directives: No Advance Directives Information Provided: Yes service: No Sexual orientation: Straight/Heterosexual Gender identity: Female Meds Allergies Allergy/AdvReac Type Severity Reaction Status Date / Time shellfish derived Allergy Intermediate HIVES, N/V Verified 09/16/23 09:32 Home Medications ?Medication ?Instructions ?Recorded ?Confirmed ?Last Taken ?Type elviteg 150 mg-cob 150 mg-emtricit 1 tab PO QAM 07/17/23 10/18/23 Unknown History 200 mg-tenofo alafenam 10 mg tablet (Genvoya) Exam Height,Weight and Vital Signs: Height 5 ft 3 in Weight 80.286 kg Last Vital Signs Temp 96.9 F 10/20/23 06:40 Pulse 62 10/20/23 06:40 Resp 18 10/20/23 06:40 BP 131/75 10/20/23 06:40 Pulse Ox 97 10/20/23 06:40 O2 Del Method Room Air 10/20/23 06:40 Airway Mallampati Class: I TM Dist: >3cm Neck ROM: Full Loose/Missing/Broken Teeth: No Heart: ok Lungs: ok Assessment and Plan Assessment Anesthesia Assessment: Anesthesia Plan Discussed and Chart Reviewed Final Anesthetic Review Family History of Problems with Anesthesia: No History of Problems with Anesthesia: No NPO: Yes ASA Class: III Final Preanesthetic Review: No Changes in Pt Med Stat, Meds/Allgs Chart Reviewed, Consent Obtained/Reviewed and Anes Risks/Benef Reviewed Patient Risk: Intermediate Procedure Risk: Low Anesthetic Plan Anesthetic Plan: GA and Agree w/ Assess. and Plan Disposition: Standard PACU
--- NOTE | 2023-10-20 08:41 | P.HPSUR_ITS ---
Pre-Procedural Eval Section A - 24 Hr Update-Section A only Date of Service: 10/20/23 The patient is an INPATIENT: No The patient has been examined within 24 hours of the surgical procedure. The History & Physical has been completed within 30 days and I have reviewed it.: Yes Section B - Complete if H&P > 30 days Chief Complaint: Calculus of kidney Allergies: Allergies Allergy/AdvReac Type Severity Reaction Status Date / Time shellfish derived Allergy Intermediate HIVES, N/V Verified 09/16/23 09:32 Plan Diagnosis/Plan: Unchanged I have reviewed the history and physical and performed a pertinent physical examination on my patient. No changes have occurred unless specified. Left ESWL. Discussed risks to include but not limited to, blood in the urine, bruising to the skin, kidney hematoma, possible need for another procedure if a stone fragment obstructs the ureter while passing, possible need to repeat proce dure if stone is not completely fragmented. Time Spent With Patient Time: Total time managing care of this patient today ____ minutes.
--- NOTE | 2023-10-20 09:28 | W.PM.OPN ---
Operative Note Operative Note Date of Service: 10/20/23 Narrative: PreOperative Diagnosis:? ? Left Renal stones Post Operative Diagnosis:?Left ? Renal stones Procedure:?Left ESWL Surgeon:?Dr Cornelia Fields Anesthesia:? General Indications for procedure: The patient understands there is a risk of bruising or hematoma to the kidney, infection, and stone migration following the procedure and subsequent intervention may be required.? - Imaging 6 mm stone mid kidney, 5 mm stone lower pole Procedure: After informed consent was verified the patient was brought to the operating room and placed in a supine position.? Anesthesia was performed per protocol. Safety pause time-out was performed. Imaging was displayed in the room and laterality confirmed. ESWL was performed.?The stone was visualized on both fluoroscopy and ultrasound.? Shockwave lithotripsy was performed, with a maximum rate of 120 hertz. After the first 300 shocks a pause for 3 minutes was completed.? 1250 shocks to each stone. A total of 2500 shocks to a maximum of power of 18 with a maximum rate of 120 hertz.? Some fragmentation of the stone was appreciated. The patient tolerated the procedure well and was transferred to the recovery area upon completion. Complications: None
[2023-10-20 09:35] VITALS: BP 120/75; PULSE 67; RESP 18; TEMP 36.4; O2SAT 98
[2023-10-20 09:40] VITALS: BP 145/60; PULSE 69; RESP 18; O2SAT 98
[2023-10-20 09:45] VITALS: BP 115/50; PULSE 56; RESP 16; O2SAT 98
[2023-10-20 09:50] VITALS: BP 111/66; PULSE 55; RESP 16; O2SAT 98
[2023-10-20] MEDS: oxyCODONE HCl Immed Release 5 MG TABLET PO (09:54)
[2023-10-20 10:05] VITALS: BP 118/70; PULSE 57; RESP 16; TEMP 36.4; O2SAT 100
== END 2023-10-20 10:59 | disposition home or self-care (01) ==
PROVIDERS: PCP Internal Medicine; Visit Provider Urology
PROC: (CPT 50590; principal; 2023-10-20 08:30)
DX: N20.0 Calculus of kidney (principal); N30.90 Cystitis, unspecified without hematuria; R10.2 Pelvic and perineal pain; B20 Human immunodeficiency virus [HIV] disease; M79.7 Fibromyalgia; I10 Essential (primary) hypertension; E78.00 Pure hypercholesterolemia, unspecified; D25.9 Leiomyoma of uterus, unspecified; D64.9 Anemia, unspecified; Z79.899 Other long term (current) drug therapy; Z98.890 Other specified postprocedural states; Z87.891 Personal history of nicotine dependence
CPT/HCPCS: 50590; 74018; J0131; J0690; J2704; J3010

== ENCOUNTER → 2023-10-20 05:57 | Outpatient (BNV) | payer MEDICAID, SELFPAY | PROVIDERS: PCP Internal Medicine; Visit Provider Urology | DX: N20.0 Calculus of kidney (principal) | CPT/HCPCS: 50590 ==

== ENCOUNTER 2023-11-19 11:40 | Outpatient (AMB) | payer MEDICAID, SELFPAY ==
--- NOTE | 2023-11-19 12:00 | A.OFFVIS_ITS ---
Vital Signs 11/19/23 12:11 Height 5 ft 3 in Weight 192 lb 3.889 oz BMI 34.1 BP 135/78 Blood Pressure Location Rt brachial Position Sitting Pulse 69 Intake Visit Reasons: CIC Intake Note: Patient in office today in follow up of CIC. CC: Patient reports that she recently saw a little bit of blood with BM and had nausea and mild abdominal pain. Needle Setter Required: Yes Accompanied by: Self / Same As Patient Allergies shellfish derived Allergy (Intermediate, Verified 11/19/23 12:18) HIVES, N/V HPI HPI CIC: Details: Assessment & Plan (1) Chronic idiopathic constipation: Code(s): K59.04 - Chronic idiopathic constipation Plan: [place] #Jojo LIve She says she has been so, so. She had a sudden onset of eye swelling of unexplained etiology. It has resolved, and she suspects pollen as the culprit. She received the simethicone and this resolved her abdominal bloating. She continues on her Linzess 145mcg and is moving her bowels well. She is now satisfied with her GI regimen ROV 6 mos. (2) Abdominal bloating: Code(s): R14.0 - Abdominal distension (gaseous) TODAY'S VISIT MARISSA Camargo They have not resolved her eye swelling. She continues on her LInzess 145mcg and her simethicone. She continues to be satisfied with her GI regimen including her omeprazole. Return office visit in 6 months. 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 HIV (human immunodeficiency virus infection) History of blood transfusion Anemia Hx of renal calculi Difficulty swallowing GERD (gastroesophageal reflux disease) Hepatitis Depression Sleep apnea Asthma Elevated cholesterol HTN (hypertension) Surgical History Hx of colonoscopy Hx of cystoscopy Hx of dilation and curettage Hx of section Hx of reduction mammoplasty Hx of tubal ligation Hx of cholecystectomy Family History Mother Breast cancer Father Heart problem Sister Bone cancer Family/Other Diabetes Social History Household Members: None Housing: Apartment Do you presently have visiting nurse or other home services: No Alcohol intake: current Alcohol intake frequency: does not drink Alcohol type: wine Patient Tobacco Use Status: Former Tobacco user Tobacco use type: Cigarette Cigarette Packs Per Day: 2 Cigarettes Per Day: 40.0 Years Smoked: 40 e-Cigarette/Vaping Use: Never Used Second Hand Smoke Exposure: No service: No Sexual orientation: Straight/Heterosexual Gender identity: Female Female Reproductive History Menstrual Age of Menarche: 12 Review of Systems Const Denies fatigue, Denies fever(s), Denies night sweats, Denies poor appetite and Denies weight loss Eyes Reports requires corrective lenses ENT Reports Normal hearing present, Denies dental pain, Denies dysphagia, Denies hearing loss, Denies mouth pain, Denies odynophagia, Denies throat swelling, Denies tongue swelling and Reports other (Dentition adequate) GI Details: Denies abdominal pain, Denies melena, Denies bloating, Denies hematochezia, Denies constipation, Denies GI cramping, Denies dysphagia, Denies excessive flatus, Denies early satiety, Denies heartburn, Denies diarrhea, Denies nausea, Denies odynophagia, Denies vomiting and Denies hematemesis Skin/Breast Denies pruritus, Denies lesions, Denies rash and Denies jaundice Neuro Reports Normal hearing present and Denies Abnormal speech present Endo Denies fatigue Aller/Immun Denies throat swelling and Denies tongue swelling Physical Exam Vital Signs: Last Vital Signs Pulse 69 11/19/23 12:11 BP 135/78 11/19/23 12:11 BMI result Body Mass Index 34.1 Const General: cooperative, no acute distress, well developed and well groomed Nutritional Appearance: well nourished, obese and overweight Orientation/consciousness: oriented to person, oriented to place and oriented to time Limitations: No language barrier, ambulation with cane, ambulation with walker and wheelchair HEENT Head: Yes normocephalic and Yes atraumatic Eyes General: appearance normal, both eyes and all related structures Pupils: Equal, round and reactive pupils present Neck Neck: Yes normal visual inspection and Yes no lymphadenopathy Thyroid: Thyroid normal Resp Effort & Inspection: normal respiratory effort and able to speak in complete sentences Auscultation: clear to auscultation bilaterally Cardio Rate: regular rate Rhythm: regular rhythm Heart sounds: Normal, physiologic split S2 sound present Peripheral pulses: radial pulses present and posterior tibial pulses present GI Inspection: No distended and No Abdominal panniculus present Palpation (GI): Soft to palpation, nontender, no guarding, not rigid, No hepatosplenomegaly present and Hepatosplenomegaly present Percussion: Yes normal to percussion Auscultation: normal bowel sounds Rectal Exam - Female: deferred Skin General skin exam: no rashes or lesions noted, turgor normal, skin not dry, no jaundice, No spider nevi and no striae Rashes: no rashes Nails: normal Neuro General: oriented to person, oriented to place and oriented to time Cranial nerves: Yes Equal, round and reactive pupils present and Yes Normal hearing present Speech: No Abnormal speech present Extrem General: Yes normal to inspection, No clubbing, No cyanosis and No edema Psych Thought process: Normal thought process present and not confabulating Thought content: Normal thought content present Insight: Good insight present (Psych) Judgement: Good judgement present (Psych) Results Reviewed Results Reviewed: Laboratory Tests 08/13/23 09:55 WBC 5.2 Hgb 12.0 Hct 37.5 MCV 89.7 MCH 28.7 Plt Count 213 D Estimated GFR > 60 Total Bilirubin 0.2 AST 25 ALT 14 Alkaline Phosphatase 78 Assessment & Plan Assessment & Plan (1) Chronic idiopathic constipation: Code(s): K59.04 - Chronic idiopathic constipation Category: Medical (2) GERD (gastroesophageal reflux disease): Comment: resolved after wt loss Code(s): K21.9 - Gastro-esophageal reflux disease without esophagitis Category: Medical (3) Serrated polyp of colon: Comment: 2020 scope repeat 3 years Code(s): K63.5 - Polyp of colon Category: Medical (4) Abdominal bloating: Code(s): R14.0 - Abdominal distension (gaseous) Category: Medical (5) Emphysema lung: Code(s): J43.9 - Emphysema, unspecified Category: Medical (6) Hepatitis: Comment: type B & C Code(s): K75.9 - Inflammatory liver disease, unspecified Category: Medical (7) Sleep apnea: Comment: pt.states was not given CPAP Code(s): G47.30 - Sleep apnea, unspecified Category: Medical (8) HTN (hypertension): Code(s): I10 - Essential (primary) hypertension Category: Medical (9) Pre-op examination: Code(s): Z01.818 - Encounter for other preprocedural examination Category: Medical Plan [place] #Anastasia lIVE They have not resolved her eye swelling. She continues on her LInzess 145mcg and her simethicone. She continues to be satisfied with her GI regimen including her omeprazole. She is due for screening colonoscopy as her last was in she would rather large polyp. She is agreeable to having this ordered today. There are no prior problems with anesthesia or sedation. She has COPD and sleep apnea which are well controlled and denies any cardiac problems. She has a history of HIV along with hepatitis B and C and is on antiviral therapy for. Return office visit in 6 months. Orders: Orders Colonoscopy - GI Use Only Today K63.5 - Polyp of colon Medications: New bisacodyl (Dulcolax (bisacodyl)) 10 mg (2 x 5 mg) PO BEDTIME 4 tabs 0RF 2 days simethicone after meals 180 mg PO QID 120 caps 6RF 30 days peg 3350-electrolytes 236-22.74-6.74 -5.86 gram (Golytely) until fecal effluent is clear; do not exceed a total volume of 2,000 mL 240 mL PO Q10M 4,000 mL 0RF 1 day Z12.11 - Encounter for screening for malignant neoplasm of colon Refilled omeprazole 20 mg PO DAILY 30 caps 6RF linaclotide (Linzess) 145 mcg PO QAM 30 caps 6RF K59.04 - Chronic idiopathic constipation Coding Level of Care Code Est Pt Level 4 (50295) Diagnoses Chronic idiopathic constipation K59.04 GERD (gastroesophageal reflux disease) K21.9 Serrated polyp of colon K63.5 Abdominal bloating R14.0 Emphysema lung J43.9 Hepatitis K75.9 Sleep apnea G47.30 HTN (hypertension) I10 Pre-op examination Z01.818
[2023-11-19 12:11] VITALS: BP 135/78; PULSE 69; BMI 34.1
== END 2023-11-19 13:17 | disposition home or self-care (01) ==
PROVIDERS: PCP Internal Medicine; Visit Provider Nurse Practitioner
DX: K59.04 Chronic idiopathic constipation (principal); K21.9 Gastro-esophageal reflux disease without esophagitis; K63.5 Polyp of colon; R14.0 Abdominal distension (gaseous); J43.9 Emphysema, unspecified; K75.9 Inflammatory liver disease, unspecified; G47.30 Sleep apnea, unspecified; I10 Essential (primary) hypertension; Z01.818 Encounter for other preprocedural examination
CPT/HCPCS: 99214

== ENCOUNTER → 2023-11-19 11:40 | Outpatient (BNVA) | payer MEDICAID, SELFPAY | PROVIDERS: PCP Internal Medicine; Visit Provider Nurse Practitioner | DX: Z01.818 Encounter for other preprocedural examination (principal); K59.04 Chronic idiopathic constipation; K21.9 Gastro-esophageal reflux disease without esophagitis; K63.5 Polyp of colon; K75.9 Inflammatory liver disease, unspecified; I10 Essential (primary) hypertension; R14.0 Abdominal distension (gaseous); J43.9 Emphysema, unspecified; G47.30 Sleep apnea, unspecified | CPT/HCPCS: 99212 ==

== ENCOUNTER 2023-11-25 10:35 | Outpatient (AMB) | payer MEDICAID, SELFPAY ==
--- NOTE | 2023-11-25 10:47 | A.OFFVIS_ITS ---
Intake Visit Reasons: Varicose veins Intake Note: Patient presents for varicose veins . She has bulging raised veins on both of her thighs and possible spider veins as well . She has been experiencing swelling , pain and cramping. States her legs fall asleep sometimes. Allergies shellfish derived Allergy (Intermediate, Verified 11/25/23 10:49) HIVES, N/V HPI HPI Varicose veins: Details: 63-year-old female presents for follow-up regarding venous insufficiency. She had been actually seen by us nearly 2 years ago and undergone right small saphenous vein ablation. She reports that she is doing fairly well otherwise. She notes in the interim her swelling has increased in the lower extremities. She in addition has developed these cluster of varicosities throughout the leg. She now presents for routine follow-up with venous insufficiency testing. 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 HIV (human immunodeficiency virus infection) History of blood transfusion Anemia Hx of renal calculi Difficulty swallowing GERD (gastroesophageal reflux disease) Hepatitis Depression Sleep apnea Asthma Elevated cholesterol HTN (hypertension) Surgical History Hx of colonoscopy Hx of cystoscopy Hx of dilation and curettage Hx of section Hx of reduction mammoplasty Hx of tubal ligation Hx of cholecystectomy Family History Mother Breast cancer Father Heart problem Sister Bone cancer Family/Other Diabetes Social History Household Members: None Housing: Apartment Do you presently have visiting nurse or other home services: No Alcohol intake: current Alcohol intake frequency: does not drink Alcohol type: wine Patient Tobacco Use Status: Former Tobacco user Tobacco use type: Cigarette Cigarette Packs Per Day: 2 Cigarettes Per Day: 40.0 Years Smoked: 40 e-Cigarette/Vaping Use: Never Used Second Hand Smoke Exposure: No service: No Sexual orientation: Straight/Heterosexual Gender identity: Female Female Reproductive History Menstrual Age of Menarche: 12 Review of Systems Const Reports as per HPI ENT Reports no additional complaints Card Denies chest pain, Denies chest pain at rest and Denies chest pain with activity Resp Denies chest congestion and Denies cough GI Reports no additional complaints Musc Details: pain over varicosities, aching of lower extremities, swelling, cramping, heaviness and tiredness, itching Denies abnormal gait Skin/Breast Reports pruritus and Denies wounds Neuro Reports no additional complaints and Denies abnormal gait Psych Denies no additional complaints Physical Exam Const General: cooperative, healthy appearing and comfortable Orientation/consciousness: oriented to person, oriented to place and oriented to time Neck Carotids: no bruits Chest Chest palpation & inspection: normal inspection of the chest and normal palpation of entire chest wall Resp Effort & Inspection: normal respiratory effort and able to speak in complete sentences Cardio Rate: regular rate Heart sounds: S1 normal heart sound present and S2 normal heart sound present Peripheral pulses: Peripheral pulses 2+ throughout GI Inspection: Yes normal to inspection Skin Other: +2 edema, large rope-like varicosities greater than 4 mm bilateral thigh CEAP Classification C4 - skin color changes Ep - Etiology Primary As - superficial veins P - reflux General skin exam: dry skin Neuro General: oriented to person, oriented to place and oriented to time Extrem Right lower extremity: full ROM, normal capillary refill and edema Left lower extremity: full ROM, normal capillary refill and edema Psych Mental Status: mental status grossly normal Assessment & Plan Assessment & Plan (1) Varicose veins of right lower extremity with inflammation: Comment: 02/06/2022 - right small saphenous vein radiofrequency ablation Code(s): I83.11 - Varicose veins of right lower extremity with inflammation Category: Medical Plan: In short patient has swelling of the lower extremities along with recurrent venous clusters. We did discuss routine conservative measures including compression elevation and exercise. I have taken the liberty of ordering repeat venous insufficiency testing to see the status of her reflux in addition the status of her prior closure as well. She will follow up with us after testing. Thank you for allowing us to assist in her care. If there are any questions or concerns please do not hesitate to contact us Orders: Orders US venous duplex LE BI 1 Week I83.11 - Varicose veins of right lower extremity with inflammation Coding Level of Care Code Est Pt Level 4 (32831) Diagnoses Varicose veins of right lower extremity with inflammation I83.11
== END 2023-11-25 11:14 | disposition home or self-care (01) ==
PROVIDERS: PCP Internal Medicine; Visit Provider Surgery Vascular Surgery
DX: I83.11 Varicose veins of right lower extremity with inflammation (principal)
CPT/HCPCS: 99214

== ENCOUNTER → 2023-11-25 10:35 | Outpatient (BNVA) | payer MEDICAID, SELFPAY | PROVIDERS: PCP Internal Medicine; Visit Provider Surgery Vascular Surgery | DX: I83.11 Varicose veins of right lower extremity with inflammation (principal) | CPT/HCPCS: 99212 ==

== ENCOUNTER 2023-12-01 12:42 | Outpatient (REF) | payer MEDICAID, SELFPAY ==
--- NOTE | ~2023-12-01 | US_ITS ---
EXAMINATION: US LOWER EXTREMITY VENOUS (REFLUX EXAM), BILATERAL CLINICAL INDICATION: Chronic venous insufficiency with lower extremity varicose veins with inflammation COMPARISON: 11/25/2021 TECHNIQUE: Color flow triplex imaging and compression Doppler was performed to evaluate both the deep and the superficial systems bilaterally. To evaluate the superficial system, the examination was performed in the upright position. Color-flow Doppler ultrasound and compression ultrasound were utilized. In addition, maneuvers were utilized to demonstrate reflux. FINDINGS: 1. DEEP VENOUS ULTRASOUND OF THE RIGHT LOWER EXTREMITY: Common Femoral Vein: Compressible, normal respiratory variation and augmented flow. Femoral Vein: Compressible, normal color flow and augmentation. Popliteal Vein: Compressible, normal augmentation. Deep Reflux: There is no evidence of reflux in the deep system in either the common femoral vein, superficial femoral or the popliteal vein. There is no evidence of a Santos's cyst. 2. SUPERFICIAL ULTRASOUND WITH DOPPLER OF RIGHT LOWER EXTREMITY: GREAT SAPHENOUS VEIN: Saphenofemoral Junction: 0.9 cm; Reflux: 0 ms Proximal Thigh: 0.5 cm; Reflux: 0 ms Mid Thigh: 0.4 cm; Reflux: 0 ms Above Knee: 0.4 cm; Reflux: 0 ms At Knee: 0.3 cm; Reflux: 0 ms Below Knee: 0.3 cm; Reflux: 0 ms Mid Calf: 0.2 cm; Reflux: 2252 ms Ankle: 0.2 cm; Reflux: 2000 ms DUPLICATED MEDIAL GREAT SAPHENOUS VEIN: Diameter: None imaged Reflux: NA DUPLICATED LATERAL GREAT SAPHENOUS VEIN: Diameter: 0.3 cm Reflux: 820 ms SMALL SAPHENOUS VEIN: Saphenopopliteal Junction: 0.2 cm; Reflux: 0 ms Proximal: 0.4 cm; Reflux: 0 ms Distal: 0.1 cm; Reflux: 0 ms VEIN OF GIACOMINI: Size: NA Reflux: NA PERFORATORS: Location: None significant Size: NA Reflux: NA VARICOSITIES: Location: Posterior mid calf off the small saphenous vein Size: 0.3 cm Reflux: 1552 ms VARICOSITIES: Location: Anterolateral calf off of labor commissioner vein Size: 0.3 cm Reflux: 2732 ms VARICOSITIES: Location: Lateral upper thigh off of labor commissioner vein Size: 0.3 cm Reflux: 2520 ms 3. DEEP VENOUS ULTRASOUND OF THE LEFT LOWER EXTREMITY: Common Femoral Vein: Compressible, normal respiratory variation and augmented flow. Femoral Vein: Compressible, normal color flow and augmentation. Popliteal Vein: Compressible, normal augmentation. Deep Reflux: There is no evidence of reflux in the deep system in either the common femoral vein, superficial femoral or the popliteal vein. There is no evidence of a Santos's cyst. 4. SUPERFICIAL ULTRASOUND WITH DOPPLER OF LEFT LOWER EXTREMITY: GREAT SAPHENOUS VEIN: Saphenofemoral Junction: 0.5 cm; Reflux: 0 ms Proximal Thigh: 0.3 cm; Reflux: 2484 ms Mid Thigh: 0.1 cm; Reflux: 0 ms Above Knee: 0.3 cm; Reflux: 0 ms At Knee: 0.3 cm; Reflux: 2468 ms Below Knee: 0.2 cm; Reflux: 0 ms Mid Calf: 0.1 cm; Reflux: 0 ms Ankle: 0.2 cm; Reflux: 0 ms DUPLICATED MEDIAL GREAT SAPHENOUS VEIN: Diameter: None imaged Reflux: NA DUPLICATED LATERAL GREAT SAPHENOUS VEIN: Diameter: 0.1 cm Reflux: None SMALL SAPHENOUS VEIN: Saphenopopliteal Junction: 0.3 cm; Reflux: 0 ms Proximal: 0.2 cm; Reflux: 0 ms Distal: 0.1 cm; Reflux: 0 ms VEIN OF GIACOMINI: Size: NA Reflux: NA PERFORATORS: Location: None significant Size: NA Reflux: NA VARICOSITIES: Location: Proximal and mid calf of the great saphenous vein Size: 0.3 to 0.4 cm Reflux: 1232 ms VARICOSITIES: Location: Lateral thigh off of labor commissioner vein Size: 0.3 cm Reflux: 2360 ms US/US venous duplex LE BI IMPRESSION: Right: Segmental areas of reflux within the great saphenous vein in the mid calf and ankle and lateral duplicated great saphenous vein in the mid thigh. There are scattered varicose veins with reflux as described above. Left: Segmental areas of reflux within the left great saphenous vein in the proximal thigh and knee. Scattered varicose veins with reflux as described above Electronically signed by: Cory Lipscomb MD 12/13/2023 02:51 PM EDT
== END 2023-12-01 12:43 | disposition home or self-care (01) ==
LOC: HO.US 12:42
PROVIDERS: PCP Internal Medicine; Visit Provider Surgery Vascular Surgery
DX: I83.11 Varicose veins of right lower extremity with inflammation (principal)
CPT/HCPCS: 93970

== ENCOUNTER 2023-12-06 09:23 | Outpatient (REF) | payer MEDICAID, SELFPAY ==
--- NOTE | ~2023-12-06 | XR_ITS ---
EXAMINATION: XR ABDOMEN KUB CLINICAL INDICATION: Renal calculus COMPARISON: None available. TECHNIQUE: AP view of the abdomen. FINDINGS: The bowel gas pattern is normal with no evidence of ileus or obstruction. Punctate calcifications projecting over the left renal shadow measuring up to 4 mm likely reflect nonobstructing stones. No abnormal calcifications along the expected course of ureters. Probable calcified fibroid projecting over the left pelvic region. Right upper quadrant cholecystectomy clips. The bones are unremarkable. XR/XR KUB IMPRESSION: Punctate calcifications projecting over the left renal shadow measuring up to 4 mm likely reflect nonobstructing stones. No abnormal calcifications along the expected course of ureters.
--- NOTE | ~2023-12-06 | US_ITS ---
EXAMINATION: US RETROPERITONEAL LIMITED (RENAL ONLY) CLINICAL INFORMATION: Calculus of kidney. COMPARISON: X-ray abdomen KUB same date. CT abdomen and pelvis 07/28/2023. Renal ultrasound 08/19/2007. TECHNIQUE: Real-time imaging of the kidneys. FINDINGS: RIGHT KIDNEY: 11.8 x 4.2 x 6.5 cm (SAG x AP x TRV). The kidney is normal in size, contour, and echogenicity. Renal cortical thickness is normal. No hydronephrosis. There is interpolar area 0.9 x 0.9 x 1.0 cm simple cyst and there is lower pole 0.3 x 0.5 x 0.4 cm nonobstructing stone. LEFT KIDNEY: 12.0 x 3.8 x 5.6 cm (SAG x AP x TRV). The kidney is normal in size, contour, and echogenicity. Renal cortical thickness is normal. No hydronephrosis. There is upper pole 5.3 x 4.2 x 6.3 cm cyst with fine septation, consistent with Bosniak 1 cyst. There are 2 interpolar stones, measured 0.3 x 0.4 x 0.2 cm and 0.2 x 0.3 x 0.2 cm, lower pole 0.3 x 0.4 x 0.4 cm stone, lower pole 0.2 x 0.3 x 0.3 cm nonobstructing stone. US/US renal BI IMPRESSION: Bilateral nephrolithiasis and cysts.
== END 2023-12-06 09:24 | disposition home or self-care (01) ==
LOC: HO.US 09:23
PROVIDERS: PCP Internal Medicine; Visit Provider Urology
DX: N20.0 Calculus of kidney (principal)
CPT/HCPCS: 74018; 76775

== ENCOUNTER 2023-12-06 12:33 | Emergency (ER) | payer MEDICAID, SELFPAY ==
[2023-12-06 12:52] VITALS: BP 132/74; PULSE 68; RESP 16; TEMP 36.9; O2SAT 99; BMI 33.7
--- NOTE | 2023-12-06 12:55 | ED.GENADULT ---
HPI - General Adult General Chief complaint: Skin/Abscess/Foreign Body Stated complaint: Pain All Over Time Seen by Provider: 12/06/23 14:24 Source: patient, RN notes reviewed and old records reviewed Mode of arrival: ambulatory Limitations: language barrier History of Present Illness ED Provider: Fernanda Watts PA-C HPI narrative: 63-year-old female with history of hyperlipidemia, COPD, GERD, depression, HIV, fibromyalgia, bilateral renal calculi s/p lithotripsy on 10/20/2023 who presents emergency department for evaluation of lower abdominal pain radiating to low back and LE's x4 days w/dysuria, urinary frequency/urgency. Also reports pruritic rash to left upper back s/p being at [place]. Admits to nausea and subjective fever. Denies vomiting, chills, numbness/tingling, weakness, incontinence/retention, hematuria, CP/SOB. Admits she had outpatient ultrasound and x-ray today Related Data Home Medications ?Medication ?Instructions ?Recorded ?Confirmed elviteg 150 mg-cob 150 mg-emtricit 1 tab PO QAM 07/17/23 10/18/23 200 mg-tenofo alafenam 10 mg tablet (Genvoya) albuterol sulfate 90 mcg/actuation 2 puff inhalation QID PRN asthma 11/19/23 aerosol inhaler (Ventolin HFA) fluticasone 250 mcg-salmeterol 50 2 ea inhalation BID 11/19/23 mcg/dose blistr powdr for inhalation (Advair Diskus) ketotifen fumarate 0.025 % (0.035 2 drp ophthalmic (eye) DAILY 11/19/23 %) eye drops rosuvastatin 40 mg tablet 40 mg PO BEDTIME 11/19/23 umeclidinium 62.5 mcg/actuation 1 inh inhalation DAILY 11/19/23 blister powder for inhalation (Incruse Ellipta) Previous Rx's ?Medication ?Instructions ?Recorded ondansetron 4 mg disintegrating 4 mg PO Q6-8H PRN nausea and 10/01/21 tablet vomiting #14 tabs albuterol sulfate 2.5 mg/3 mL 2.5 mg (3 mL) inhalation Q4-6H PRN 07/19/23 (0.083 %) solution for nebulization Shortness Of Breath #75 mL dicyclomine 20 mg tablet 20 mg PO TID #90 tabs 07/19/23 fluticasone propionate 110 2 puff inhalation BID #12 grams 07/19/23 mcg/actuation HFA aerosol inhaler furosemide 20 mg tablet 20 mg PO DAILY 30 days #30 tabs 07/19/23 guaifenesin 600 mg tablet, 600 mg PO Q12H PRN cough 3 days #6 07/19/23 extended release 12 hr (Mucinex) tabs meclizine 12.5 mg tablet 12.5 mg PO TID PRN Vertigo #12 tabs 07/19/23 meloxicam 15 mg tablet 15 mg PO DAILY #30 tabs 07/19/23 sertraline 100 mg tablet 100 mg PO DAILY PRN mood #30 tabs 07/19/23 zolpidem 10 mg tablet 10 mg PO BEDTIME #30 tabs 07/19/23 loratadine 10 mg tablet 10 mg PO DAILY #30 tabs 07/20/23 naproxen 500 mg tablet 500 mg PO BID PRN pain 7 days #14 07/28/23 tabs oxycodone-acetaminophen 5 mg-325 1 tab PO Q6-8H PRN pain #8 tabs 10/20/23 mg tablet (Percocet) bisacodyl 5 mg tablet,delayed 10 mg (2 x 5 mg) PO BEDTIME 2 days 11/19/23 release (Dulcolax (bisacodyl)) #4 tabs linaclotide 145 mcg capsule 145 mcg PO QAM #30 caps 11/19/23 (Linzess) omeprazole 20 mg capsule,delayed 20 mg PO DAILY #30 caps 11/19/23 release peg 3350-electrolytes 236 240 ml PO Q10M 1 day #4,000 mL 11/19/23 gram-22.74 gram-6.74 gram-5.86 gram solution (Golytely) simethicone 180 mg capsule 180 mg PO QID 30 days #120 caps 11/19/23 hydrocortisone 1 % topical cream 1 appl topical BID PRN itching 12/06/23 (Cortisone (hydrocortisone)) #28.35 grams nitrofurantoin 100 mg PO Q12H 7 days #14 caps 12/06/23 monohydrate/macrocrystals 100 mg capsule (Macrobid) Allergies Allergy/AdvReac Type Severity Reaction Status Date / Time shellfish derived Allergy Intermediate HIVES, N/V Verified 12/06/23 12:55 Review of Systems Review of Systems: Constitutional: +Fever (Subjective), + Chills ENT/Mouth: No Ear Pain, No Nasal Congestion, No sore throat, No Rhinorrhea, No Swallowing Difficulty Cardiovascular: No Chest Pain, No SOB Respiratory: No Cough Gastrointestinal: + Nausea, No Vomiting, No Diarrhea, No Constipation, + Abdominal pain Genitourinary: + Dysuria, + Urinary Frequency, No Hematuria, No Urinary Incontinence/retention, + Urgency, No Flank Pain Musculoskeletal: No joint pain, No Myalgias, No Joint Swelling Skin: No Skin Lesions, + rash Neuro: No Weakness, No Numbness, No Paresthesias Yes all other systems are reviewed and are negative Constitutional: Constitutional: Reports as per HPI Neurologic: Denies Sensory deficit (Neuro) [facility] Past Medical History Attestation statement: The following information was validated with the patient. 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 HIV (human immunodeficiency virus infection) History of blood transfusion Anemia Hx of renal calculi Difficulty swallowing GERD (gastroesophageal reflux disease) Hepatitis Depression Sleep apnea Asthma Elevated cholesterol HTN (hypertension) Surgical History Hx of colonoscopy Hx of cystoscopy Hx of dilation and curettage Hx of section Hx of reduction mammoplasty Hx of tubal ligation Hx of cholecystectomy Family History Family History Mother Breast cancer Father Heart problem Sister Bone cancer Family/Other Diabetes Social History Social History Household Members: None Housing: Apartment Do you presently have visiting nurse or other home services: No Alcohol intake: current Alcohol intake frequency: does not drink Alcohol type: wine Patient Tobacco Use Status: Former Tobacco user Tobacco use type: Cigarette Cigarette Packs Per Day: 2 Cigarettes Per Day: 40.0 Years Smoked: 40 e-Cigarette/Vaping Use: Never Used Second Hand Smoke Exposure: No Advance Directives: No Advance Directives Information Provided: No service: No Sexual orientation: Straight/Heterosexual Gender identity: Female Physical Exam ED Vital Signs: Vital Signs - 24 hr 12/06/23 12:52 12/06/23 16:25 12/06/23 18:05 Temperature 98.5 F 97.5 F 97.5 F Pulse Rate 68 58 58 Respiratory Rate 16 16 16 Blood Pressure 132/74 126/39 L 126/39 L Pulse Oximetry 99 97 97 Oxygen Delivery Method Room Air Room Air Room Air BMI result Body Mass Index 33.7 Const General: cooperative, healthy appearing, alert and awake Nutritional Appearance: well nourished Orientation/consciousness: patient oriented x3 Limitations: no limitations HENMT Head: Yes normal to inspection and Yes atraumatic Ears: hearing grossly normal bilaterally General nose exam: Normal external nose present Face and sinus: Yes normal facial exam Eyes General: appearance normal, both eyes and all related structures EOM: EOMs intact bilaterally Neck Neck: Yes normal visual inspection and Yes no meningeal signs Resp Effort & Inspection: normal respiratory effort and no respiratory distress Auscultation: clear to auscultation bilaterally Cardio Rate: regular rate Rhythm: regular rhythm Heart sounds: S1 normal heart sound present and S2 normal heart sound present GI Inspection: Yes normal to inspection Palpation (GI): Soft to palpation, Tenderness to palpation present (GI) in the epigastrum and suprapubicly; with no rebound tenderness, no guarding and not rigid General: Yes no CVA tenderness Back/Spine/Pelvis Other: No midline cervical/thoracic/lumbar spinous tenderness/step-off or deformity Back: no CVA tenderness Skin Rashes: rashes noted (+ multiple mosquito bites noted to left shoulder/upper back) Wounds: no wounds Neuro Other: Strength intact throughout. No saddle anesthesia. Sensation intact to light touch. Neurovascular intact distally General: patient oriented x3, gait normal, tone normal, moves all extremities and no meningeal signs Cranial nerves: Yes CN's II-XII intact bilaterally Gait exam (Neuro): Normal gait present Motor exam (neuro): 5/5 motor strength present throughout Sensory Exam: Abnormal double simultaneous stimulation for sensation (Slight decrease in sensation, numbness feeling in lower extremities); No Sensory deficit (Neuro) Extrem General: Yes normal to inspection and Yes full ROM Right upper extremity: normal to inspection and full ROM Left upper extremity: normal to inspection and full ROM Right lower extremity: normal to inspection and full ROM Left lower extremity: normal to inspection and full ROM Course Course Course Narrative: This is a Rapid Medical Examination (RME) performed by Katia Pedraza PA-C in triage. Full HPI, ROS, assessment and treatment plan per primary provider in the Main ED. 63 yo female with history of HIV presenting to the ER for evalution of an itchy and painful rash to her back for the last 5 days after being to a [place], but did not swim in. -no leukocytosis. Labs otherwise reassuring -UA appears infected, chronically > will treat with antibiotics US renal BI IMPRESSION: Bilateral nephrolithiasis and cysts. > low suspicion for obstructing stone. Unlikely pyelo. Will treat patient for UTI, based on prior urine cultures will treat with Macrobid. Recommended close Urology follow-up which patient states she has next month. Results discussed with patient including worrisome signs and symptoms and strict return precautions, and when to return to the emergency department. They verbalized understanding and feel safe for discharge at this time. Medical Decision Making Medical Decision Making [facility] Narrative: 63-year-old female with history of hyperlipidemia, COPD, GERD, depression, HIV, fibromyalgia, bilateral renal calculi who presents emergency department for evaluation of lower abdominal pain radiating to low back and LE's x4 days w/dysuria, urinary frequency/urgency. Also reports pruritic rash to left upper back s/p being at [place]. On exam vital signs stable, NAD, nontoxic appearing, abdomen soft with mild epigastric and suprapubic tenderness, no rebound or guarding, no CVAT, no red flag symptoms or midline spinous tenderness. Mosquito bites noted to left upper back. Concern for UTI vs pyelo although no CVAT vs renal stone. Low suspicion for cauda equina/cord compression or appendicitis/diverticulitis. Plan: Labs, UA, contact [facility] for ultrasound read. Differential Diagnosis Differential Diagnoses: The differential diagnosis associated with the presentation includes As above Admission/Observation Consideration of admission/observation: Escalation of care including admission/observation considered Lab Data [facility] Lab Attestation statement: I reviewed the patient's lab results. 12/06/23 15:38 12/06/23 15:38 Labs: Lab Results 12/06/23 Range/Units 15:38 WBC 4.2 L (4.8-10.8) X10*3/uL RBC 4.23 (4.20-5.50) X10*6/uL Hgb 12.4 (12.0-16.0) g/dl Hct 37.6 (37.0-47.0) % MCV 88.9 (80.0-98.0) fL MCH 29.3 (27.0-33.0) pg MCHC 33.0 (31.0-35.0) g/dl RDW 13.6 (11.0-16.0) % Plt Count 185 (160-400) X10*3/uL MPV 11.5 (9.4-12.3) fL Immature Gran % (Auto) 0.2 (0.0-0.4) % Neut % (Auto) 58.7 (45-73) % Lymph % (Auto) 28.9 (20-40) % Stevens % (Auto) 8.6 (2-11) % Eos % (Auto) 3.1 (0-4) % Baso % (Auto) 0.5 (0-2) % Lymph # (Auto) 1.2 (1.2-4.9) X10*3/uL Stevens # (Auto) 0.4 (0.1-1.2) X10*3/uL Eos # (Auto) 0.1 (0.0-0.4) X10*3/uL Baso # (Auto) 0.0 (0.0-0.2) X10*3/uL Abs Immat Gran (auto) 0.01 (0.00-0.03) X10*3/uL Absolute Neuts (auto) 2.5 (2.0-8.3) x10*3/uL Absolute Nucleated RBC 0.000 (0.0-0.012) X10*3/uL Nucleated RBC % (auto) 0.0 (0.0-0.2) /100WBC Sodium 143 (135-145) mmol/L Potassium 3.6 (3.3-5.1) mmol/L Chloride 109 H (96-108) mmol/L Carbon Dioxide 26 (22-29) mmol/L Anion Gap 12 (12-20) BUN 19 H (9-16) mg/dL Creatinine 0.95 (0.5-1.4) mg/dL Estim Creat Clear Calc 63.9 Estimated GFR 60 Random Glucose 86 (60-115) mg/dL Calcium 9.4 (8.4-10.2) mg/dL Magnesium 1.9 (1.6-2.6) mg/dL Total Bilirubin 0.4 (0.0-1.0) mg/dL Direct Bilirubin 0.1 (0.0-0.5) mg/dL AST 19 (5-31) U/L ALT 11 (0-31) U/L Alkaline Phosphatase 67 (39-117) U/L Total Protein 7.8 (6.5-8.0) g/dL Albumin 4.0 (3.5-5.0) g/dL Lipase 16 (8-78) U/L Urine Color Yellow Urine Appearance Cloudy Urine pH 6.0 (5.0-9.0) Ur Specific [place] 1.020 (1.005-1.025) Urine Protein Trace (Neg-Trace) mg/dL Urine Glucose (UA) Negative (Negative) mg/dL Urine Ketones Negative (Negative) mg/dL Urine Blood Trace H (Negative) Urine Nitrite Positive H (Negative) Ur Leukocyte Esterase Large (3+) H (Negative) Urine RBC 3-5 H (0-2) /HPF Urine WBC >50 H (0-5) /HPF Ur Squamous Epith Cells 6-10 (0-2) /HPF Urine Bacteria 4+ (None Seen) Hyaline Casts 0-2 (0-2) /LPF Radiology Impression Discussion of test interpretation with radiology: I have reviewed the radiologist's reading. External Record Review External record reviewed: Inpatient record, Office record, Outpatient record, Prior outpatient labs, Prior outpatient radiology, Primary care record and Outside ED record Tests considered The following testing was considered but not selected: As above Prescription Management I considered prescription management with: Pain Medication and Antibiotic Discharge Plan Discharge Clinical Impression: UTI (urinary tract infection), Bilateral nephrolithiasis, Mosquito bite Patient Disposition: Home, Self-Care Instructions: Urinary Tract Infection in Older Adults (ED) Additional Instructions: You have a urinary tract infection. Macrobid as an antibiotic please take as prescribed Please apply topical hydrocortisone cream to your mosquito bites Your ultrasound does show stones in both of her kidneys, without inflammation or back flow of urine, please follow-up with urology If symptoms persist or worsen return to the emergency department Prescriptions: New nitrofurantoin monohyd/m-cryst [Macrobid] 100 mg capsule 100 mg PO Q12H 7 Days Qty: 14 0RF Rx Instructions: must administer with a meal/food hydrocortisone [Cortisone (hydrocortisone)] 1 % cream 1 appl topical BID PRN (Reason: itching) Qty: 28.35 0RF No Action ondansetron 4 mg tablet,disintegrating 4 mg PO Q6-8H PRN (Reason: nausea and vomiting) Qty: 14 0RF Genvoya [id number] mg tablet 1 tab PO QAM Rx Instructions: with breakfast guaifenesin [Mucinex] 600 mg tablet extended release 12hr 600 mg PO Q12H PRN (Reason: cough) 3 Days Qty: 6 0RF albuterol sulfate 2.5 mg /3 mL (0.083 %) Solution For Nebulization 2.5 mg INHALATION Q4-6H PRN (Reason: Shortness Of Breath) Qty: 75 0RF meloxicam 15 mg tablet 15 mg PO DAILY Qty: 30 0RF sertraline 100 mg tablet 100 mg PO DAILY PRN (Reason: mood) Qty: 30 0RF meclizine 12.5 mg tablet 12.5 mg PO TID PRN (Reason: Vertigo) Qty: 12 0RF dicyclomine 20 mg tablet 20 mg PO TID Qty: 90 0RF furosemide 20 mg tablet 20 mg PO DAILY 30 Days Qty: 30 6RF fluticasone propionate 110 mcg/actuation HFA aerosol inhaler 2 puff inhalation BID Qty: 12 0RF zolpidem 10 mg tablet 10 mg PO BEDTIME Qty: 30 0RF loratadine 10 mg Tablet 10 mg PO DAILY Qty: 30 0RF naproxen 500 mg tablet 500 mg PO BID PRN (Reason: pain) 7 Days Qty: 14 0RF oxycodone-acetaminophen [Percocet] 5-325 mg tablet 1 tab PO Q6-8H PRN (Reason: pain) Qty: 8 0RF Rx Instructions: Partial Fill upon patient request. albuterol sulfate [Ventolin HFA] 90 mcg/actuation HFA aerosol inhaler 2 puff inhalation QID PRN (Reason: asthma) Incruse Ellipta 62.5 mcg/actuation blister with device 1 inh inhalation DAILY rosuvastatin 40 mg tablet 40 mg PO BEDTIME fluticasone propion-salmeterol [Advair Diskus] 250-50 mcg/dose blister with device 2 ea inhalation BID ketotifen fumarate 0.025 % (0.035 %) drops 2 drp ophthalmic (eye) DAILY omeprazole 20 mg capsule,delayed release(DR/EC) 20 mg PO DAILY Qty: 30 6RF Linzess 145 mcg capsule 145 mcg PO QAM Qty: 30 6RF simethicone 180 mg capsule 180 mg PO QID 30 Days Qty: 120 6RF Rx Instructions: after meals peg 3350-electrolytes [Golytely] 236-22.74-6.74 -5.86 gram recon soln 240 ml PO Q10M 1 Days Qty: 4000 0RF Rx Instructions: until fecal effluent is clear; do not exceed a total volume of 2,000 mL bisacodyl [Dulcolax (bisacodyl)] 5 mg tablet,delayed release (DR/EC) 10 mg PO BEDTIME 2 Days Qty: 4 0RF [place] [facility] [place] Veronica Rebolledo MD [Primary Care Provider] - 5 days Interventions: ED Discharge Assessment Last Done: 12/06/23 18:05 Discharge Date/Time: 12/06/23 18:05 Print Language: Afghan
[2023-12-06 15:42] LABS: MANUAL DIFF FLAG NO
[2023-12-06 15:45] LABS: Appearance Urine Cloudy; Color Urine Yellow; Glucose Urine UA Negative (Negative); Leukocyte Esterase Urine Large (3+) (Negative); Nitrite Urine Positive (Negative); UMIC TRIGGER UACC YES; Urine Blood Trace (Negative); Urine Ketones Negative (Negative); Urine Protein Trace mg/dL (Neg-Trace)
[2023-12-06 15:55] LABS: Basophils Percent Auto 0.5 % (0-2); Eosinophils Absolute Auto 0.1 X10*3/uL (0.0-0.4); Eosinophils Percent Auto 3.1 % (0-4); Hematocrit 37.6 % (37.0-47.0); Hemoglobin 12.4 g/dl (12.0-16.0); Imm Gran Abs Auto 0.01 X10*3/uL (0.00-0.03); Imm Gran Pct Auto 0.2 % (0.0-0.4); Lymphocytes Absolute Auto 1.2 X10*3/uL (1.2-4.9); Lymphocytes Percent Auto 28.9 % (20-40); Mean Corpuscular Hemoglobin 29.3 pg (27.0-33.0); Mean Corpuscular Volume 88.9 fL (80.0-98.0); Mean Platelet Volume 11.5 fL (9.4-12.3); Monocytes Absolute Auto 0.4 X10*3/uL (0.1-1.2); Monocytes Percent Auto 8.6 % (2-11); Neutrophils Absolute Auto 2.5 x10*3/uL (2.0-8.3); Neutrophils Percent Auto 58.7 % (45-73); Platelet Count 185 X10*3/uL (160-400); Red Blood Count 4.23 X10*6/uL (4.20-5.50); Red Cell Distribution Width 13.6 % (11.0-16.0); White Blood Count 4.2 X10*3/uL (4.8-10.8)
[2023-12-06 15:59] LABS: Alanine Aminotransferase 11 U/L (0-31); Alkaline Phosphatase 67 U/L (39-117); Anion Gap 12 (12-20); Aspartate Amino Transferase 19 U/L (5-31); Bacteria Urine 4+ (None Seen); Bilirubin Direct 0.1 mg/dL (0.0-0.5); Bilirubin Total 0.4 mg/dL (0.0-1.0); Blood Urea Nitrogen 19 mg/dL (9-16); Calcium 9.4 mg/dL (8.4-10.2); Carbon Dioxide 26 mmol/L (22-29); Chloride 109 mmol/L (96-108); Creatinine Clr Calc Pharmacy 63.9; Estimated Glomerular Filt Rate 60; Glucose Random 86 mg/dL (60-115); Hyaline Casts Urine 0-2 /LPF (0-2); Lipase 16 U/L (8-78); Magnesium 1.9 mg/dL (1.6-2.6); Potassium 3.6 mmol/L (3.3-5.1); Sodium 143 mmol/L (135-145); Total Protein 7.8 g/dL (6.5-8.0); UACC Culture Trigger YES; WBC Urine >50 /HPF (0-5)
[2023-12-06 16:25] VITALS: BP 126/39; PULSE 58; RESP 16; TEMP 36.4; O2SAT 97
[2023-12-06 18:05] VITALS: BP 126/39; PULSE 58; RESP 16; TEMP 36.4; O2SAT 97
== END 2023-12-06 18:05 | disposition home or self-care (01) ==
PROVIDERS: Physician Assistant; Emergency Provider Internal Medicine; PCP Internal Medicine
DX: N39.0 Urinary tract infection, site not specified (principal); N20.0 Calculus of kidney; S20.462A Insect bite (nonvenomous) of left back wall of thorax, initial encounter; W57.XXXA Bitten or stung by nonvenomous insect and other nonvenomous arthropods, initial encounter; Y93.14 Activity, water aerobics and water exercise; Y92.838 Other recreation area as the place of occurrence of the external cause; Y99.9 Unspecified external cause status
CPT/HCPCS: 36415; 80048; 80076; 81001; 83690; 83735; 85025; 87086; 99283

== ENCOUNTER 2023-12-28 08:28 | Outpatient (AMB) | payer MEDICAID, SELFPAY ==
--- NOTE | 2023-12-28 08:47 | MHC.OFFVIS ---
Intake Visit Reasons: ESWL follow up/US Steeler Required: Yes Steeler Language: Impregnator Name: Jef [id number] Allergies shellfish derived Allergy (Intermediate, Verified 12/28/23 08:50) HIVES, N/V Medication List - Last Reconciled 12/28/23 by Cornelia Fields MD albuterol sulfate 2.5 mg (3 mL) inhalation Q4-6H PRN albuterol sulfate 90 mcg/actuation (Ventolin HFA) 2 puffs inhalation QID PRN bisacodyl (Dulcolax (bisacodyl)) 10 mg (2 x 5 mg) PO BEDTIME 2 days dicyclomine 20 mg PO TID [id number]-kypty-tenof alafen [id number] mg (Genvoya) 1 tab PO QAM fluticasone propion-salmeterol 250-50 mcg/dose (Advair Diskus) 2 ea inhalation BID fluticasone propionate 110 mcg/actuation 2 puffs inhalation BID furosemide 20 mg PO DAILY 30 days guaifenesin ER (Mucinex) 600 mg PO Q12H PRN 3 days hydrocortisone 1% (Cortisone (hydrocortisone)) 1 appl topical BID PRN ketotifen fumarate 0.025%(0.035%) 2 drps ophthalmic (eye) DAILY linaclotide (Linzess) 145 mcg PO QAM loratadine 10 mg PO DAILY meclizine 12.5 mg PO TID PRN meloxicam 15 mg PO DAILY naproxen 500 mg PO BID PRN 7 days nitrofurantoin monohyd/m-cryst 100 mg (Macrobid) 100 mg PO BID omeprazole 20 mg PO DAILY ondansetron 4 mg PO Q6-8H PRN peg 3350-electrolytes 236-22.74-6.74 -5.86 gram (Golytely) 240 mL PO Q10M 1 day pyridoxine (vitamin B6) 100 mg PO DAILY 90 days rosuvastatin 40 mg PO BEDTIME sertraline 100 mg PO DAILY PRN simethicone 180 mg PO QID 30 days umeclidinium 62.5 mcg/actuation (Incruse Ellipta) 1 inh inhalation DAILY zolpidem 10 mg PO BEDTIME HPI Comments Details: 12/28/23--s/p left ESWL on 10/20/23, reviewed FU renal US and KUB, left renal calculi, demonstrated with reduced stone burden, right renal calculi noted that was not seen on previous CTAP in July,, this year and I question accuracy. The patient complains of burning with urination. UA is nitrite positive. Will empirically prescribe Macrobid. FU in 4months, monitor UA, renal US in one year. Review of chart: --[place] is a 63-year-old female is being followed for nephrolithiasis, recurrent UTI's, pelvic pain. Reviewed CT KUB --07/28/23--right kidney is unremarkable. several nonobstructing left renal calculi. There are at least 5 calculi, ranging in size from 3 mm to 5 mm in the mid to lower pole. No left hydronephrosis or hydroureter. Discussed Left ESWL. Discussed risks to include but not limited to, blood in the urine, bruising to the skin, kidney hematoma, possible need for another procedure if a stone fragment obstructs the ureter while passing, possible need to repeat procedure if stone is not completely fragmented. Certified educational sign language interpreter present. 06/14/23--Citizen Of [place]-speaking female, certified educational sign language interpreter present, the patient was placed on suppressive nitrofurantoin 50 mg daily for chronic cystitis. She states that painful urination has improved. She has a history of bilateral kidney stones she denies gross blood in the urine. Urinalysis today -- leukocytes 1+, blood 1+. Macrobid 50 mg daily suppressive Abx therapy. Surveillance urine culture. Monitor kidney stones renal ultrasound and KUB follow-up in 3 months 04/15/23-- she is s/p outpatient cystoscopy - findings c/w cystitis follicularis. The patient was started on Macrobid. urine c/s sent reviewed. Certified educational sign language interpreter was present during the visit. The patient states bladder pain is improving. I have discussed continue macrobid antibiotic suppressive therapy. Her past medical history includes nicotine dependency, fibromyalgia, approximate 30 pack year smoker with underlying history of HIV on antivirals under the care of [facility], Breast cancer s/p lumpectomy in 2013 and multiple occurrences of hospitalizations for pneumonia, who is followed by Pulmonary. CAT scan done on 09/18/22 noting bilateral kidney stones.?--done without IV contrast -- Multiple 1 mm right kidney stones and multiple left kidney stones, the largest measuring 6 mm.? 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 HIV (human immunodeficiency virus infection) History of blood transfusion Anemia Hx of renal calculi Difficulty swallowing GERD (gastroesophageal reflux disease) Hepatitis Depression Sleep apnea Asthma Elevated cholesterol HTN (hypertension) Surgical History Hx of colonoscopy Hx of cystoscopy Hx of dilation and curettage Hx of section Hx of reduction mammoplasty Hx of tubal ligation Hx of cholecystectomy Family History Mother Breast cancer Father Heart problem Sister Bone cancer Family/Other Diabetes Social History Household Members: None Housing: Apartment Do you presently have visiting nurse or other home services: No Alcohol intake: current Alcohol intake frequency: does not drink Alcohol type: wine Patient Tobacco Use Status: Former Tobacco user Tobacco use type: Cigarette Cigarette Packs Per Day: 2 Cigarettes Per Day: 40.0 Years Smoked: 40 e-Cigarette/Vaping Use: Never Used Second Hand Smoke Exposure: No service: No Sexual orientation: Straight/Heterosexual Gender identity: Female Female Reproductive History Menstrual Age of Menarche: 12 Review of Systems Const All systems reviewed & are unremarkable except as noted in HPI and below Reports no additional complaints Eyes Reports no additional complaints ENT Reports no additional complaints Card Reports no additional complaints Resp Reports no additional complaints GI Reports no additional complaints Reports as per HPI Musc Reports no additional complaints Skin/Breast Reports system reviewed and no additional complaints, except as documented Neuro Reports no additional complaints Psych Reports no additional complaints Endo Reports no additional complaints Flaquito/Lymph Reports no additional complaints Aller/Immun Reports no additional complaints Office Procedures Post Void Residual Post Residual Void Post Void Residual (PVR): 28 32619-Jscr Void Residual by ultrasound Results AMB Urinalysis, Automated UA Leukoctes 3 Og/uL Last Edit by Rosa Ontiveros on 12/28/23 09:17 UA Nitrite Positive Last Edit by Rosa Weston on 12/28/23 09:17 UA Urobilinogen 0 mg/dL Last Edit by Rosa Ontiveros on 12/28/23 09:17 UA Protein 1 mg/dL Last Edit by Rosajoyce Waltera on 12/28/23 09:17 UA pH 6.0 Last Edit by Rosa Ontiveros on 12/28/23 09:17 UA Blood 3 [place]ilango/uL Last Edit by Rosa Ontiveros on 12/28/23 09:17 UA Specific Chandler 1.2 Last Edit by Rosa Ontiveros on 12/28/23 09:17 UA Ketone Negative Last Edit by Rosajoyce Waltera on 12/28/23 09:17 UA Bilirubin 1 mg/dL Last Edit by Rosajoyce Waltera on 12/28/23 09:17 UA Glucose 0 mg/dL Last Edit by Rosa Waltera on 12/28/23 09:17 Results Reviewed Results Reviewed: Laboratory Last Values Urine pH (Auto) 6.0 12/28/23 09:11 Specific Chandler (Auto) 1.2 12/28/23 09:11 Urine Protein (Auto) 1 mg/dL 12/28/23 09:11 Glucose (UA)(Auto) 0 mg/dL 12/28/23 09:11 Urine Ketones (Auto) Negative 12/28/23 09:11 Urine Blood (Auto) 3 [place]/uL 12/28/23 09:11 Urine Nitrite (Auto) Positive 12/28/23 09:11 Urine Bilirubin (Auto) 1 mg/dL 12/28/23 09:11 Urine Urobilinogen (Auto) 0 mg/dL 12/28/23 09:11 Leukocyte Esterase (Auto) 3 Og/uL 12/28/23 09:11 Date of Service: 12/06/23 US RETROPERITONEAL LIMITED (RENAL ONLY) CLINICAL INFORMATION: Calculus of kidney. COMPARISON: X-ray abdomen KUB same date. CT abdomen and pelvis 07/28/2023. Renal ultrasound 08/19/2007. TECHNIQUE: Real-time imaging of the kidneys. FINDINGS: RIGHT KIDNEY: 11.8 x 4.2 x 6.5 cm (SAG x AP x TRV). The kidney is normal in size, contour, and echogenicity. Renal cortical thickness is normal. No hydronephrosis. There is interpolar area 0.9 x 0.9 x 1.0 cm simple cyst and there is lower pole 0.3 x 0.5 x 0.4 cm nonobstructing stone. LEFT KIDNEY: 12.0 x 3.8 x 5.6 cm (SAG x AP x TRV). The kidney is normal in size, contour, and echogenicity. Renal cortical thickness is normal. No hydronephrosis. There is upper pole 5.3 x 4.2 x 6.3 cm cyst with fine septation, consistent with Bosniak 1 cyst. There are 2 interpolar stones, measured 0.3 x 0.4 x 0.2 cm and 0.2 x 0.3 x 0.2 cm, lower pole 0.3 x 0.4 x 0.4 cm stone, lower pole 0.2 x 0.3 x 0.3 cm nonobstructing stone. IMPRESSION: Bilateral nephrolithiasis and cysts. Date of Service: 07/28/23 EXAMINATION: CT ABDOMEN AND PELVIS WITHOUT CONTRAST COMPARISON: 07/18/2023 TECHNIQUE: Multidetector volumetric imaging was performed from the superior aspect of the liver through the pubic symphysis. Sagittal and coronal reformatted images were obtained on the technologist's workstation. This CT examination was performed using dose optimization techniques as appropriate, variously including the following: *Automated exposure control *Adjustment of mA and/or kV according to patient size (this includes techniques or standardized protocols for targeted exams where dose is matched to indication/reason for exam; i.e. extremities or head) *Use of iterative reconstruction technique DLP: 993 mGy-cm FINDINGS: Motion artifact technically degrades image quality. LUNG BASES: There is bibasilar airspace disease and bronchial wall thickening. Subpleural nodule in the right lower lobe measures 2.0 x 1.2 cm. New small right pleural effusion. LIVER, GALLBLADDER, AND BILIARY TREE: The noncontrast liver is normal in size and contour. No biliary ductal dilatation is present. The gallbladder is surgically absent. PANCREAS: Unremarkable. SPLEEN: Not enlarged. ADRENAL GLANDS: No adrenal mass. KIDNEYS AND URETERS: The right kidney is unremarkable. There are several nonobstructing left renal calculi. There are at least 5 calculi ranging in size from 3 mm to 5 mm in the mid to lower pole. No left hydronephrosis or hydroureter. 4.3 cm upper pole left renal cyst. BLADDER: No bladder calculus. GASTROINTESTINAL TRACT: No small bowel obstruction. Copious stool throughout the colon. ABDOMINAL WALL: No significant hernia is appreciated. LYMPH NODES: No bulky lymphadenopathy. VASCULAR: Normal caliber abdominal aorta. PELVIC VISCERA: No large adnexal masses are appreciated. OSSEOUS STRUCTURES: No destructive bone lesions. Fatty atrophy of the right lateral chest wall musculature. IMPRESSION: Bibasilar airspace disease, right greater than left, and bronchial wall thickening. Subpleural nodule in the right lower lobe measures 2.0 x 1.2 cm. New small right pleural effusion. Several nonobstructing left renal calculi are present. No hydronephrosis or hydroureter. Constipation. Ordered:? Urine Culture? Procedure?Result?Verified?Site ? Urine Culture? Final?11/09/22 ? ? ?Organism 1?Escherichia coli ? Quant?> 100,000 cfu/mL ? ESBL Note:? NOTE: Extended-Spectrum Beta-Lactamase enzyme present ? E coli? M.I.C.? ? RX? --------- ---?Ampicillin?>=32?R?Ceftriaxone? >=64?R?Ertapenem? <=0.12? ? ?S?Gentamicin?<=1? S?Levofloxacin?1? I?Nitrofurantoin?<=16?S?Trimethoprim/Sulfamethoxazole? <=20?S Assessment & Plan Assessment & Plan (1) Acute UTI: Code(s): N39.0 - Urinary tract infection, site not specified Category: Medical (2) Kidney stone on left side: Code(s): N20.0 - Calculus of kidney Category: Medical Plan s/p left ESWL on 10/20/23, reviewed FU renal US and KUB, left renal calculi, demonstrated with reduced stone burden, right renal calculi noted that was not seen on previous CTAP in July,, this year and I question accuracy. Vit B6 100 mg daily, add citrate to diet ie add lemon to water. UA is nitrite positive. Will empirically prescribe Macrobid. FU in 4months, monitor UA, renal US in one year. Orders: Orders AMB Urinalysis Automated Today Z13.9 - Encounter for screening, unspecified AMB Post Void Residual by ultrasound Today R30.0 - Dysuria Urine Culture Today R30.0 - Dysuria Medications: New nitrofurantoin monohyd/m-cryst 100 mg (Macrobid) must administer with a meal/food 100 mg PO BID 14 caps 0RF pyridoxine (vitamin B6) 100 mg PO DAILY 90 days 90 tabs 3RF kidney stones Patient Instructions: The patient had an opportunity to ask questions regarding treatment plan. The patient expressed understanding and agreement with the above treatment plan. The patient is aware they should contact our office by phone for worsening of their current condition or the appearance of new symptoms. Compliance is encouraged with any medications and followup testing that is ordered. It is a privilege to be allowed the opportunity to participate in the urologic care of your patient. If you have any questions or concerns regarding treatment for the above conditions please do not hesitate to contact me. The office telephone contact is [phone]. This note is constructed in part using voice recognition software. While every effort has been made to ensure accuracy household coordinator errors may have been included. Yours sincerely, Cornelia Fields MD Coding Level of Care Code Est Pt Level 3 (39106) Global (46197) Diagnoses Acute UTI N39.0 Kidney stone on left side N20.0 CPT Codes Post Residual Void - PVR CPT Code: 83456-Rxbn Void Residual by ultrasound ([id number]) Comment modifier
== END 2023-12-28 09:40 | disposition home or self-care (01) ==
PROVIDERS: PCP Internal Medicine; Referring Provider Internal Medicine; Visit Provider Urology
DX: N39.0 Urinary tract infection, site not specified (principal); N20.0 Calculus of kidney; Z13.9 Encounter for screening, unspecified
CPT/HCPCS: 99024

== ENCOUNTER 2023-12-28 08:28 | Outpatient (REF) | payer MEDICAID, SELFPAY | END 2023-12-28 08:29 | disposition home or self-care (01) | LOC: HO.LAB 08:28 | PROVIDERS: PCP Internal Medicine; Visit Provider Urology | DX: R30.0 Dysuria (principal); N39.0 Urinary tract infection, site not specified; N20.0 Calculus of kidney | CPT/HCPCS: 51798; 81003; 87086; 87088; 87186; 99212 ==

== ENCOUNTER 2024-01-14 08:29 | Outpatient (AMB) | payer MEDICAID, SELFPAY ==
--- NOTE | 2024-01-14 08:47 | A.OFFVIS_ITS ---
Vital Signs 01/14/24 08:48 Height 5 ft 3 in Weight 189 lb 9.561 oz BMI 33.6 BP 130/80 Intake Visit Reasons: PMB Physical Security Manager Required: Yes Physical Security Manager Language: Rn Unit Manager Services: Physical Security Manager Present (in person) Information Interpreted: non-clinical & clinical Game Technician: Game Technician Present (Leigh DIAZ) Accompanied by: Self / Same As Patient Allergies shellfish derived Allergy (Intermediate, Verified 01/14/24 08:54) HIVES, N/V Post menopausal: Yes HPI Comments Details: Presenting complaining of recurrent episodes of vaginal bleeding. The patient had initial seen in April of 2023 for abnormal endometrium by ultrasound and LGSIL Pap smear done at [facility] in 03/11 showing LGSIL. The patient has no history of vaginal bleeding. Ultrasound showed the following: IMPRESSION: 1. The endometrium is thickened and heterogeneous measuring 1.0 cmwith trace fluid in the endometrial canal. Recommend correlation with any history of postmenopausal bleeding and gynecologic evaluation and management. 2. A 1.4 cm calcified uterine myoma not significantly changed. 3. Unremarkable sonographic appearance of the right ovary. The leftovary was not identified sonographically. No adnexal mass. Colposcopy/biopsy/ECC with Office endometrial biopsy were done on 05/12/2019, the pathology showed the following: A. Endometrium, biopsy: Strips of benign endometrium; no atypia identified. B. Endocervix, curettage: Small fragments of squamous and endocervical epithelium within normal limits. C. Cervix, 4 o'clock, biopsy: - Low grade squamous intraepithelial lesion (RUDI 1). - Endocervical epithelium within normal limits. D. Cervix, 6 o'clock, biopsy: - Low grade squamous intraepithelial lesion (RUDI 1). - Background inflamed cervical transformation zone mucosa. E. Cervix, 7 o'clock, biopsy: Mildly inflamed squamous and endocervical mucosa with reactive changes. F. Cervix, 12 o'clock, biopsy: Squamous epithelium with reactive changes; no endocervical epithelium identified The patient presented in 08/10 with an episode of vaginal bleeding 08/27/2023 Hysteroscopy D&C was done, intraoperative finding showed normal endometrial cavity with no evidence of pathology The pathology of D&C showed the following: Endometrium, curettage: Strips of inactive endometrium; negative for atypia, hyperplasia or malignancy. 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 HIV (human immunodeficiency virus infection) History of blood transfusion Anemia Hx of renal calculi Difficulty swallowing GERD (gastroesophageal reflux disease) Hepatitis Depression Sleep apnea Asthma Elevated cholesterol HTN (hypertension) Surgical History Hx of colonoscopy Hx of cystoscopy Hx of dilation and curettage Hx of section Hx of reduction mammoplasty Hx of tubal ligation Hx of cholecystectomy Family History Mother Breast cancer Father Heart problem Sister Bone cancer Family/Other Diabetes Social History Household Members: None Housing: Apartment Do you presently have visiting nurse or other home services: No Alcohol intake: current Alcohol intake frequency: does not drink Alcohol type: wine Patient Tobacco Use Status: Former Tobacco user Tobacco use type: Cigarette Cigarette Packs Per Day: 2 Cigarettes Per Day: 40.0 Years Smoked: 40 e-Cigarette/Vaping Use: Never Used Second Hand Smoke Exposure: No service: No Sexual orientation: Straight/Heterosexual Gender identity: Female Female Reproductive History Menstrual Age of Menarche: 12 Review of Systems Const All systems reviewed & are unremarkable except as noted in HPI and below Physical Exam Vital Signs: Last Vital Signs BP 130/80 01/14/24 08:48 BMI result Body Mass Index 33.6 General: Yes no CVA tenderness External Female Exam: normal external appearance and normal appearance of the urethra Speculum Exam - Vagina: normal appearance of the vagina, normal palpation, no lesions and no masses Speculum Exam - Cervix: normal appearance of the cervix, normal palpation, no lesions, no masses and nontender Bimanual exam- vagina & uterus: normal bimanual exam, normal palpation, uterine size normal, normal palpation, uterine shape normal, No Cervical tenderness present and non-tender Bimanual Exam- Adnexa, other: normal adnexae Back/Spine/Pelvis Back: no CVA tenderness Assessment & Plan Assessment & Plan (1) Postmenopausal bleeding: Comment: Uterine myoma calcified by ultrasound Code(s): N95.0 - Postmenopausal bleeding Category: Medical Plan: Discussed with the patient options of treatment of recurrent postmenopausal bleeding, recommended hysterectomy with BSO for definitive surgical treatment. Discussed with the patient the different types of hysterectomies including, v aginal, laparoscopic assisted vaginal, robotic assisted laparoscopic,& abdominal with BSO. All pros, cons, r/b of each approach were discussed the patient including evidence that morbidity is less and recovery is shorter with minimally invasive approaches to hysterectomy. Discussed with the patient the lack of availability of the robot Invisible Puppyinci robot and/or minimally invasive cage fighter specialist at [facility]. The patient was referred to [facility] minimally invasive cmm operator surgery Instructed the patient to call our office back in case a referral appointment is not scheduled, missed or canceled so that we will assist on rescheduling another appointment, the patient verbalized understanding agreed with the plan. Coding Level of Care Code Est Pt Level 3 (02249) Diagnoses Postmenopausal bleeding N95.0
[2024-01-14 08:48] VITALS: BP 130/80; BMI 33.6
== END 2024-01-14 09:25 | disposition home or self-care (01) ==
PROVIDERS: PCP Internal Medicine; Referring Provider Internal Medicine; Visit Provider Obstetrics & Gynecology
DX: N95.0 Postmenopausal bleeding (principal)
CPT/HCPCS: 99213

== ENCOUNTER → 2024-01-14 08:29 | Outpatient (BNVA) | payer MEDICAID, SELFPAY | PROVIDERS: PCP Internal Medicine; Visit Provider Obstetrics & Gynecology | DX: N95.0 Postmenopausal bleeding (principal) | CPT/HCPCS: 99212 ==

== ENCOUNTER 2024-01-25 08:21 | Outpatient (AMB) | payer MEDICAID, SELFPAY ==
--- NOTE | 2024-01-25 09:00 | MHC.OFFVIS ---
Intake Visit Reasons: follow up s/p US 12/01/23 Intake Note: Patient has bilateral leg pain, cramping and swelling. Right leg is worse than the left. Patient has trouble walking. She states she was supposed to get a walker from her PCP but has yet to receive it. Allergies shellfish derived Allergy (Intermediate, Verified 01/25/24 09:02) HIVES, N/V HPI HPI follow up s/p US 12/01/23: Details: Very pleasant 63-year-old female presents for follow-up regarding venous insufficiency. She does have some pain and discomfort. She does have some swelling and discomfort directly over certain varicosities in the right calf and thigh. She now presents for routine follow-up with venous insufficiency testing. Of note she has used compression stockings with minimal relief. 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 HIV (human immunodeficiency virus infection) History of blood transfusion Anemia Hx of renal calculi Difficulty swallowing GERD (gastroesophageal reflux disease) Hepatitis Depression Sleep apnea Asthma Elevated cholesterol HTN (hypertension) Surgical History Hx of colonoscopy Hx of cystoscopy Hx of dilation and curettage Hx of section Hx of reduction mammoplasty Hx of tubal ligation Hx of cholecystectomy Family History Mother Breast cancer Father Heart problem Sister Bone cancer Family/Other Diabetes Social History Household Members: None Housing: Apartment Do you presently have visiting nurse or other home services: No Alcohol intake: current Alcohol intake frequency: does not drink Alcohol type: wine Patient Tobacco Use Status: Former Tobacco user Tobacco use type: Cigarette Cigarette Packs Per Day: 2 Cigarettes Per Day: 40.0 Years Smoked: 40 e-Cigarette/Vaping Use: Never Used Second Hand Smoke Exposure: No service: No Sexual orientation: Straight/Heterosexual Gender identity: Female Female Reproductive History Menstrual Age of Menarche: 12 Review of Systems Const Reports as per HPI ENT Reports no additional complaints Card Denies chest pain, Denies chest pain at rest and Denies chest pain with activity Resp Denies chest congestion and Denies cough GI Reports no additional complaints Musc Details: pain over varicosities, aching of lower extremities, swelling, cramping, heaviness and tiredness, itching Denies abnormal gait Skin/Breast Reports pruritus and Denies wounds Neuro Reports no additional complaints and Denies abnormal gait Psych Denies no additional complaints Physical Exam Const General: cooperative, healthy appearing and comfortable Orientation/consciousness: oriented to person, oriented to place and oriented to time Neck Carotids: no bruits Chest Chest palpation & inspection: normal inspection of the chest and normal palpation of entire chest wall Resp Effort & Inspection: normal respiratory effort and able to speak in complete sentences Cardio Rate: regular rate Heart sounds: S1 normal heart sound present and S2 normal heart sound present Peripheral pulses: Peripheral pulses 2+ throughout GI Inspection: Yes normal to inspection Skin Other: +2 edema, large rope-like varicosities greater than 4 mm right calf and thigh CEAP Classification C4 - skin color changes Ep - Etiology Primary As - superficial veins P - reflux General skin exam: dry skin Neuro General: oriented to person, oriented to place and oriented to time Extrem Right lower extremity: full ROM, normal capillary refill and edema Left lower extremity: full ROM, normal capillary refill and edema Psych Mental Status: mental status grossly normal Results Reviewed Results Reviewed: Brief summary of venous insufficiency testing is as follows: right great saphenous vein: negative right small saphenous vein: negative right accessory vein: none present left great saphenous vein: negative left small saphenous vein: negative left accessory vein: none present Please note there is no evidence of any venous aneurysms or significant tortuosity Assessment & Plan Assessment & Plan (1) Varicose veins of right lower extremity with inflammation: Comment: 02/06/2022 - right small saphenous vein radiofrequency ablation Code(s): I83.11 - Varicose veins of right lower extremity with inflammation Category: Medical Plan: This patient has varicose veins with inflammation. They continue to be a source of discomfort for the patient. The patient has tried conservative treatment with compression, leg elevation and exercise program for over 3 months time. They have been compliant with all treatment. This has provided minimal relief for the patient. I do not anticipate this course of treatment will alter the underlying etiology. The patient has been scheduled for lower extremity venous treatment inclusive of --- right leg microphlebectomy. Risks, benefits, and complications of this procedure has been discussed in detail with the patient including but not limited to bleeding, infection, and the development of a DVT. The patient has demonstrated a clear understanding and has consented. We will schedule the patient as soon as possible. Thank you for allowing us to participate in this patient's care. If there are any questions or concerns please do not hesitate to contact us. Coding Level of Care Code Est Pt Level 4 (32606) Diagnoses Varicose veins of right lower extremity with inflammation I83.11
== END 2024-01-25 09:22 | disposition home or self-care (01) ==
PROVIDERS: PCP Internal Medicine; Referring Provider Internal Medicine; Visit Provider Surgery Vascular Surgery
DX: I83.11 Varicose veins of right lower extremity with inflammation (principal)
CPT/HCPCS: 99214

== ENCOUNTER → 2024-01-25 08:21 | Outpatient (BNVA) | payer MEDICAID, SELFPAY | PROVIDERS: PCP Internal Medicine; Visit Provider Surgery Vascular Surgery | DX: I83.11 Varicose veins of right lower extremity with inflammation (principal) | CPT/HCPCS: 99212 ==

== ENCOUNTER 2024-02-15 11:53 | Outpatient (REF) | payer MEDICAID, SELFPAY ==
[2024-02-15 12:20] LABS: MANUAL DIFF FLAG NO
[2024-02-15 12:27] LABS: Basophils Percent Auto 0.2 % (0-2); Eosinophils Absolute Auto 0.1 X10*3/uL (0.0-0.4); Eosinophils Percent Auto 1.5 % (0-4); Hematocrit 38.7 % (37.0-47.0); Hemoglobin 12.7 g/dl (12.0-16.0); Imm Gran Abs Auto 0.01 X10*3/uL (0.00-0.03); Imm Gran Pct Auto 0.2 % (0.0-0.4); Lymphocytes Absolute Auto 1.1 X10*3/uL (1.2-4.9); Lymphocytes Percent Auto 22.6 % (20-40); Mean Corpuscular HGB Conc 32.8 g/dl (31.0-35.0); Mean Corpuscular Hemoglobin 29.5 pg (27.0-33.0); Mean Corpuscular Volume 89.8 fL (80.0-98.0); Mean Platelet Volume 10.4 fL (9.4-12.3); Monocytes Absolute Auto 0.3 X10*3/uL (0.1-1.2); Monocytes Percent Auto 6.4 % (2-11); Neutrophils Absolute Auto 3.3 x10*3/uL (2.0-8.3); Neutrophils Percent Auto 69.1 % (45-73); Platelet Count 169 X10*3/uL (160-400); Red Blood Count 4.31 X10*6/uL (4.20-5.50); Red Cell Distribution Width 14.2 % (11.0-16.0); White Blood Count 4.7 X10*3/uL (4.8-10.8)
[2024-02-15 13:06] LABS: Alanine Aminotransferase 18 U/L (0-31); Albumin Level 4.1 g/dL (3.5-5.0); Alkaline Phosphatase 67 U/L (39-117); Anion Gap 11 (12-20); Aspartate Amino Transferase 32 U/L (5-31); Bilirubin Total 0.4 mg/dL (0.0-1.0); Blood Urea Nitrogen 22 mg/dL (9-16); Calcium 9.3 mg/dL (8.4-10.2); Carbon Dioxide 27 mmol/L (22-29); Chloride 109 mmol/L (96-108); Cholesterol 221 mg/dL (<200); Estimated Glomerular Filt Rate 58; Glucose Random 89 mg/dL (60-115); HDL Cholesterol 69 mg/dL (>40); LDL Cholesterol Calculated 115 mg/dL (<100); Potassium 4.1 mmol/L (3.3-5.1); Sodium 143 mmol/L (135-145); Total Protein 7.7 g/dL (6.5-8.0); Triglycerides 185 mg/dL (<150)
[2024-02-15 13:13] LABS: Thyroid Stimulating Hormone 1.18 uIU/mL (0.32-4.0)
== END 2024-02-15 11:54 | disposition home or self-care (01) ==
LOC: HO.LAB 11:53
PROVIDERS: PCP Internal Medicine; Visit Provider Internal Medicine
DX: E78.00 Pure hypercholesterolemia, unspecified (principal); G47.30 Sleep apnea, unspecified; I10 Essential (primary) hypertension; R21 Rash and other nonspecific skin eruption; J84.9 Interstitial pulmonary disease, unspecified; J45.909 Unspecified asthma, uncomplicated; R06.09 Other forms of dyspnea
CPT/HCPCS: 36415; 80053; 80061; 84443; 85025; 99212

== ENCOUNTER 2024-02-15 14:06 | Outpatient (AMB) | payer MEDICAID, SELFPAY ==
[2024-02-15 14:23] VITALS: BP 120/74; PULSE 62; O2SAT 97; BMI 34.2
--- NOTE | 2024-02-15 14:23 | MHC.OFFVIS ---
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 Patient recent CT chest does not demonstrate significant interstitial disease. Her pulmonary function test is still pending. Her 2D echocardiogram is essentially normal. She continues on Lasix with reasonable control of dyspnea and lower extremity edema. Patient states that when she was using Breo and Incruse consistently her dyspnea was well controlled, however recently she has only been using her inhaled bronchodilators intermittently with suboptimal control of her symptoms. However, she denies acute exacerbations. Patient also wants to be referred to Cardiology at [facility]. 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 HIV (human immunodeficiency virus infection) History of blood transfusion Anemia Hx of renal calculi Difficulty swallowing GERD (gastroesophageal reflux disease) Hepatitis Depression Sleep apnea Asthma Elevated cholesterol HTN (hypertension) Surgical History Hx of colonoscopy Hx of cystoscopy Hx of dilation and curettage Hx of section Hx of reduction mammoplasty Hx of tubal ligation Hx of cholecystectomy Family History Mother Breast cancer Father Heart problem Sister Bone cancer Family/Other Diabetes Social History Household Members: None Housing: Apartment Do you presently have visiting nurse or other home services: No Alcohol intake: current Alcohol intake frequency: does not drink Alcohol type: wine Patient Tobacco Use Status: Former Tobacco user Tobacco use type: Cigarette Cigarette Packs Per Day: 2 Cigarettes Per Day: 40.0 Years Smoked: 40 e-Cigarette/Vaping Use: Never Used Second Hand Smoke Exposure: No service: No Sexual orientation: Straight/Heterosexual Gender identity: Female Female Reproductive History Menstrual Age of Menarche: 12 Review of Systems Const Denies daytime sleepiness, Denies excessive sweating, Denies fatigue, Denies fever(s), Denies lethargy, Denies malaise, Denies night sweats, Denies snoring and Denies weight loss Eyes Denies blurry vision and Denies itchy eyes ENT Denies nasal congestion, Denies post nasal drip, Denies sinus pain, Denies sinus pressure and Denies other ( Thrush) Card Denies chest pain, Denies pedal edema, Denies dyspnea, Denies orthopnea and Denies paroxysmal nocturnal dyspnea Resp Denies cough, Denies hemoptysis, Denies excessive phlegm production, Denies dyspnea, Denies snoring and Denies wheezing GI Denies abdominal pain and Denies heartburn Musc Denies myalgias, Denies arthralgias and Denies joint swelling Skin/Breast Denies rash Neuro Denies memory loss and Denies seizure-like activity Psych Denies abnormal sleep pattern, Denies anxiety and Denies memory loss Endo Denies excessive sweating, Denies fatigue and Denies heat intolerance Flaquito/Lymph Denies easy bruising Aller/Immun Denies itchy eyes, Denies seasonal rhinorrhea and Denies wheezing Physical Exam Vital Signs: Last Vital Signs Pulse 62 02/15/24 14:23 BP 120/74 02/15/24 14:23 Pulse Ox 97 02/15/24 14:23 Oxygen Delivery Method Room Air 02/15/24 14:23 BMI result Body Mass Index 34.2 Const General: no acute distress and alert Nutritional Appearance: not obese Orientation/consciousness: Other orientation findings ( oriented) HEENT Head: Yes atraumatic Eyes General: appearance normal, both eyes and all related structures Sclerae: sclerae normal EOM: EOMs intact bilaterally Neck Neck: Yes supple Lymphatic: no lymphadenopathy noted Resp Effort & Inspection: normal respiratory effort and no use of accessory muscles Auscultation: clear to auscultation bilaterally Cardio Rate: regular rate Rhythm: regular rhythm Heart sounds: no gallops, no murmurs and no rubs Skin General skin exam: other ( warm) Extrem General: No clubbing, No cyanosis and No edema Assessment & Plan Assessment & Plan (1) Interstitial lung disease: Code(s): J84.9 - Interstitial pulmonary disease, unspecified Category: Medical Plan: Previously with lymphoid interstitial pneumonia, with no evidence of residual disease on recent CT scan. Continue to monitor clinically. (2) Reactive airway disease: Code(s): J45.909 - Unspecified asthma, uncomplicated Category: Medical Plan: Well controlled on current regimen of Breo, Incruse, and albuterol MDI when patient uses it consistently. (3) Dyspnea on exertion: Code(s): R06.09 - Other forms of dyspnea Category: Medical Plan: Multifactorial with contribution from underlying pulmonary, cardiac, and obesity/deconditioning etiologies. Patient previously seen in [place] by Cardiology provider and now wants to transfer her care to [facility]. Cardiology consultation request placed. Orders: Referrals Cardiology Referral R06.09 - Other forms of dyspnea Medications: New fluticasone furoate-vilanterol 200-25 mcg/dose (Breo Ellipta) 1 ea inhalation DAILY 1 ea 6RF R06.09 - Other forms of dyspnea umeclidinium 62.5 mcg/actuation (Incruse Ellipta) 1 inh inhalation DAILY 1 ea 6RF R06.09 - Other forms of dyspnea Coding Level of Care Code Est Pt Level 4 (29483) Complex EM visit Add On G2211 Diagnoses Interstitial lung disease J84.9 Reactive airway disease J45.909 Dyspnea on exertion R06.09
== END 2024-02-15 14:50 | disposition home or self-care (01) ==
LOC: HO.HPS 14:07
PROVIDERS: PCP Internal Medicine; Visit Provider Internal Medicine Pulmonary Disease
DX: J84.9 Interstitial pulmonary disease, unspecified (principal); J45.909 Unspecified asthma, uncomplicated; R06.09 Other forms of dyspnea
CPT/HCPCS: 99214

== ENCOUNTER 2024-02-25 12:22 | Outpatient (AMB) | payer MEDICAID, SELFPAY ==
[2024-02-25 12:32] VITALS: BMI 34.0
--- NOTE | 2024-02-25 12:32 | A.OFFVIS_ITS ---
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 HIV (human immunodeficiency virus infection) History of blood transfusion Anemia Hx of renal calculi Difficulty swallowing GERD (gastroesophageal reflux disease) Hepatitis Depression Sleep apnea Asthma Elevated cholesterol HTN (hypertension) Surgical History Hx of colonoscopy Hx of cystoscopy Hx of dilation and curettage Hx of section Hx of reduction mammoplasty Hx of tubal ligation Hx of cholecystectomy Family History Mother Breast cancer Father Heart problem Sister Bone cancer Family/Other Diabetes Social History Household Members: None Housing: Apartment Do you presently have visiting nurse or other home services: No Alcohol intake: current Alcohol intake frequency: does not drink Alcohol type: wine Patient Tobacco Use Status: Former Tobacco user Tobacco use type: Cigarette Cigarette Packs Per Day: 2 Cigarettes Per Day: 40.0 Years Smoked: 40 e-Cigarette/Vaping Use: Never Used Second Hand Smoke Exposure: No service: No Sexual orientation: Straight/Heterosexual Gender identity: Female Female Reproductive History Menstrual Age of Menarche: 12 Physical Exam Vital Signs: BMI result Body Mass Index 34.0 Office Procedures Vascular Office Procedure Details Details: Diagnosis: Right Leg varicose veins with inflammation Procedure: Right leg Microphlebectomy Anesthesia: Local Infiltration 50 cc, Tumescent: 0 cc. Wigs Salesperson: Miranda STOUT Varicose veins were marked in the standing position on the right leg and the patient was then placed in the supine position. The right lower extremity was prepared and draped to allow knee flexion in the sterile field. The patient had large superficial varicose veins with significant symptoms of pain. It was therefore determined to perform microphlebectomies of the clusters of varicose veins. The patient had bulging varicose veins which were previously marked in the standing position. A small stab incision was made longitudinally directly overlying the varicose vein in the calf and the varicose vein was grasped with a hemostat aided by a vein hook. It was then dissected as far proximally and distally as possible and avulsed. A total of 11 stab incisions were made and the procedure of stab phlebectomies was repeated 11 times. Hemostasis was checked and stab incision sites were closed with steri-strips and sterile dressing was given with gauze and krilex wrap followed by an boby bandage. There were no complications and blood loss was minimal. Post-Op instructions were given and a follow-up appointment was recommended. [id number] - Phleb Veins, Extrem - up to 20 All charges added?: Procedure code (CPT) selection complete Assessment & Plan Assessment & Plan (1) Varicose veins of right lower extremity with inflammation: Comment: 02/06/2022 - right small saphenous vein radiofrequency ablation 02/25/2024 - right leg microphlebectomy Code(s): I83.11 - Varicose veins of right lower extremity with inflammation Category: Medical Plan: See op note Coding Level of Care Code Procedure Only Diagnoses Varicose veins of right lower extremity with inflammation I83.11 CPT Codes Details - Vascular 5: 62593 - Phleb Veins, Extrem - up to 20 ([id number])
== END 2024-02-25 13:34 | disposition home or self-care (01) ==
PROVIDERS: PCP Internal Medicine; Visit Provider Surgery Vascular Surgery
DX: I83.11 Varicose veins of right lower extremity with inflammation (principal)
CPT/HCPCS: 37765

== ENCOUNTER → 2024-02-25 12:22 | Outpatient (BNVA) | payer MEDICAID, SELFPAY | PROVIDERS: PCP Internal Medicine; Visit Provider Surgery Vascular Surgery | DX: I83.11 Varicose veins of right lower extremity with inflammation (principal) | CPT/HCPCS: 37765; J2003 ==

== ENCOUNTER 2024-03-01 08:46 | Outpatient (REF) | payer MEDICAID, SELFPAY ==
[2024-03-02 10:47] LABS: HPV 16,18/45 See PAP report
== END 2024-03-01 08:47 | disposition home or self-care (01) ==
LOC: HO.LNP 08:46
PROVIDERS: Visit Provider Obstetrics & Gynecology
DX: Z01.419 Encounter for gynecological examination (general) (routine) without abnormal findings (principal)
CPT/HCPCS: 87624; 88175; 99396

== ENCOUNTER 2024-03-01 08:46 | Outpatient (AMB) | payer MEDICAID, SELFPAY ==
--- NOTE | 2024-03-01 08:48 | A.OFFVIS_ITS ---
Vital Signs 03/01/24 08:50 Height 5 ft 3 in Weight 197 lb BMI 34.9 BP 126/80 Intake Visit Reasons: Annual/co-test Sheet Metal Work Furnace Installer Required: Yes Sheet Metal Work Furnace Installer Language: Manager Software Development Services: Sheet Metal Work Furnace Installer Present (in person) Sheet Metal Work Furnace Installer Name: Leigh DIAZ Information Interpreted: non-clinical & clinical Senior Engineer: Senior Engineer Present (Leigh DIAZ) Accompanied by: Self / Same As Patient Allergies shellfish derived Allergy (Intermediate, Verified 03/01/24 09:14) HIVES, N/V Post menopausal: Yes HPI Comments Details: Presenting for annual exam. No complaints. Last Pap/HPV was [facility]IL in 03/11 colpo biopsy ECC showed RUDI 1 Last Mammogram was BI-RADS 1 in 02/08 Last Colonoscopy was in 12/07, the recommendation was to repeat in 5 years The patient was referred to [facility] for recurrent postmenopausal bleeding is in the process of having workup for possible hysterectomy [facility] Medical History (Updated 03/01/24 @ 09:19 by Percy Strong MD) Dysplasia of cervix, low grade (RUDI 1) Dyspnea on exertion Encounter for preoperative pulmonary examination Urinary tract infection symptoms Pelvic pain Arthritis Bilateral nephrolithiasis Uterine fibroid Hematuria Fibromyalgia 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 HIV (human immunodeficiency virus infection) History of blood transfusion Anemia Hx of renal calculi Difficulty swallowing GERD (gastroesophageal reflux disease) Hepatitis Depression Sleep apnea Asthma Elevated cholesterol HTN (hypertension) Surgical History Hx of colonoscopy Hx of cystoscopy Hx of dilation and curettage Hx of section Hx of reduction mammoplasty Hx of tubal ligation Hx of cholecystectomy Family History Mother Breast cancer Father Heart problem Sister Bone cancer Family/Other Diabetes Social History Household Members: None Housing: Apartment Do you presently have visiting nurse or other home services: No Alcohol intake: current Alcohol intake frequency: does not drink Alcohol type: wine Patient Tobacco Use Status: Former Tobacco user Tobacco use type: Cigarette Cigarette Packs Per Day: 2 Cigarettes Per Day: 40.0 Years Smoked: 40 e-Cigarette/Vaping Use: Never Used Second Hand Smoke Exposure: No service: No Sexual orientation: Straight/Heterosexual Gender identity: Female Female Reproductive History Menstrual Age of Menarche: 12 Date of last pap smear: 07/17/22 Review of Systems Const All systems reviewed & are unremarkable except as noted in HPI and below Card Reports as per HPI Resp Reports as per HPI GI Reports as per HPI and Reports no additional complaints Reports as per HPI Physical Exam Vital Signs: Last Vital Signs BP 126/80 03/01/24 08:50 BMI result Body Mass Index 34.9 Const General: cooperative, healthy appearing and comfortable Chest Chest palpation & inspection: normal inspection of the chest and normal palpation of entire chest wall Breast/axilla inspection: normal inspection of the breasts and normal inspection of the axillae Breast/axilla palpation: normal palpation of the breasts, normal palpation of the axillae and no axillary lymphadenopathy Resp Effort & Inspection: normal respiratory effort Auscultation: clear to auscultation bilaterally Percussion: percussion normal Cardio Palpation: normal PMI Rate: regular rate Rhythm: regular rhythm Heart sounds: no murmurs and no rubs Peripheral pulses: Peripheral pulses 2+ throughout GI Inspection: Yes normal to inspection Palpation (GI): Soft to palpation, nontender, no guarding, not rigid and No hepatosplenomegaly present Percussion: Yes normal to percussion Auscultation: normal bowel sounds Rectal Exam - Female: deferred General: Yes bladder normal to palpation External Female Exam: No lesion Speculum Exam - Vagina: normal appearance of the vagina, normal palpation, normal vaginal discharge and not erythematous Speculum Exam - Cervix: normal appearance of the cervix and normal palpation Bimanual exam- vagina & uterus: normal bimanual exam, normal palpation, uterine size normal, bladder normal to palpation, consistency normal and normal palpation Bimanual Exam- Adnexa, other: normal adnexae, no masses and no tenderness Assessment & Plan Assessment & Plan (1) Well woman exam: Comment: RUDI 1 in 03/11 Code(s): Z01.419 - Encounter for gynecological examination (general) (routine) without abnormal findings Category: Medical Plan: Co testing done. Counseled the patient about the recommended dietary allowance of 1200 mg of Calcium & 600 IU of vitamin D. Mammogram ordered. The patient was instructed to perform monthly self-breast exams and schedule annual exam in a year. All questions answered and the patient verbalized understanding. Orders: Orders MM tomosynthesis screening BI Today Z12.31 - Encounter for screening mammogram for malignant neoplasm of breast Coding Level of Care Code Est Pt Prev Care 40-64y(50328) Diagnoses Well woman exam Z01.419
[2024-03-01 08:50] VITALS: BP 126/80; BMI 34.9
== END 2024-03-01 09:30 | disposition home or self-care (01) ==
PROVIDERS: Visit Provider Obstetrics & Gynecology
DX: Z01.419 Encounter for gynecological examination (general) (routine) without abnormal findings (principal)
CPT/HCPCS: 99396

== ENCOUNTER 2024-03-23 10:51 | Outpatient (AMB) | payer MEDICAID, SELFPAY ==
--- NOTE | 2024-03-23 11:13 | MHC.OFFVIS ---
Intake Visit Reasons: 2w follow up s/p Right Micro 02/25/24 Intake Note: Patient presents for follow up micro. No complaints. Accompanied by: Self / Same As Patient Allergies shellfish derived Allergy (Intermediate, Verified 03/23/24 11:13) HIVES, N/V HPI HPI 2w follow up s/p Right Micro 02/25/24: Details: Very pleasant 64-year-old female presents for follow-up status post right lower extremity microphlebectomy. She reports in general she is doing significantly better. She only has complaints of a lateral thigh venous cluster. This is more so on the left leg. 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 HIV (human immunodeficiency virus infection) History of blood transfusion Anemia Hx of renal calculi Difficulty swallowing GERD (gastroesophageal reflux disease) Hepatitis Depression Sleep apnea Asthma Elevated cholesterol HTN (hypertension) Surgical History Hx of colonoscopy Hx of cystoscopy Hx of dilation and curettage Hx of section Hx of reduction mammoplasty Hx of tubal ligation Hx of cholecystectomy Family History Mother Breast cancer Father Heart problem Sister Bone cancer Family/Other Diabetes Social History Household Members: None Housing: Apartment Do you presently have visiting nurse or other home services: No Alcohol intake: current Alcohol intake frequency: does not drink Alcohol type: wine Patient Tobacco Use Status: Former Tobacco user Tobacco use type: Cigarette Cigarette Packs Per Day: 2 Cigarettes Per Day: 40.0 Years Smoked: 40 e-Cigarette/Vaping Use: Never Used Second Hand Smoke Exposure: No service: No Sexual orientation: Straight/Heterosexual Gender identity: Female Female Reproductive History Menstrual Age of Menarche: 12 Review of Systems Const All systems reviewed & are unremarkable except as noted in HPI and below Reports no additional complaints ENT Reports Normal hearing present Card Denies chest pain, Denies chest pain at rest, Denies chest pain with activity and Denies pedal edema Resp Denies cough GI Denies abdominal pain Musc Denies abnormal gait, Denies muscle cramps and Denies radiating pain into limb Skin/Breast Denies skin ulcer and Denies wounds Neuro Reports Normal hearing present and Denies abnormal gait Psych Reports no additional complaints Physical Exam Const General: cooperative, healthy appearing and comfortable Orientation/consciousness: oriented to person, oriented to place and oriented to time HEENT Head: Yes normal to inspection Neck Neck: Yes normal visual inspection Carotids: no bruits Chest Chest palpation & inspection: normal inspection of the chest Resp Effort & Inspection: normal respiratory effort and able to speak in complete sentences Auscultation: clear to auscultation bilaterally, no crackles, no rales, no rhonchi and no wheezes Cardio Rate: regular rate Rhythm: regular rhythm Heart sounds: S1 normal heart sound present and S2 normal heart sound present Bruits: no carotid bruits Peripheral pulses: Peripheral pulses 2+ throughout GI Inspection: Yes normal to inspection Skin Wounds: no wounds Hair: normal Neuro General: oriented to person, oriented to place and oriented to time Cranial nerves: Yes CN's II-XII intact bilaterally and Yes Normal hearing present Cognition (Neuro): normal cognition Motor exam (neuro): 5/5 motor strength present throughout Extrem Other: venous exam: No significant superficial varicosities or spider telangiectasias, minimal edema General: No clubbing, No cyanosis and No edema Psych Appearance: grossly normal Mental Status: mental status grossly normal Speech and movement: Normal speech and movement present Assessment & Plan Assessment & Plan (1) Varicose veins of right lower extremity with inflammation: Comment: 02/06/2022 - right small saphenous vein radiofrequency ablation 02/25/2024 - right leg microphlebectomy Code(s): I83.11 - Varicose veins of right lower extremity with inflammation Category: Medical Plan: The patient has done extremely well with all venous treatments. Patient's may often experience postprocedure phlebitic episodes and I have discussed with the patient use of warm compresses and NSAIDS if tolerated for pain discomfort. In addition, I have discussed continued conservative measures including use of compression, leg elevation, and exercise. The patient was also given an information sheet regarding appropriate use of compression stockings and future purchases. Thank you for allowing us to care for your patient with venous disease. Coding Level of Care Code Est Pt Level 4 (85002) Diagnoses Varicose veins of right lower extremity with inflammation I83.11
--- OUTSIDE RECORDS SUMMARY | 2024-03-29 01:46 | XMS_ITS | Continuity of Care Document ---
Author Organization [facility] Address [address] [place] [address]- Care Team Providers Care Health Care Assistant Name Role Phone Veronica Rebolledo MD Primary Care Physician [phone] [place] [facility] [place] - 03/26/[address] [address]- Encounter Type: Triage Allergies, Adverse Reactions, Alerts No Known Medication Allergies Patient Care team information Care Team Personnel Name: Veronica Rebolledo MD Position: [facility] Outreach Member Role: PCP Address: [address] [place] [address] [address] Veronica Rebolledo MD [place], [place] [address] Telecom: Insurance Providers Guarantor name: YONATHAN [facility] Plan Information #: 1 Payer: [employer] Member Number: NA Policy Number: NA Group Number: NA
--- OUTSIDE RECORDS SUMMARY | 2024-03-29 01:46 | XMS_ITS | Continuity of Care Document ---
Author Organization [facility] Address [address] [place] [address] Care Team Providers Care Lead Athlete Name Role Phone Veronica Rebolledo MD Primary Care Physician [place] [facility] [place] - 03/23/[address] [address]- Attending Physician: Mickey Paz Admitting Physician: AdmMickey mandujano Referring Physician: Admtr [id number] Encounter Type: Triage Allergies, Adverse Reactions, Alerts No Known Medication Allergies Patient Care team information Care Team Personnel Name: Veronica Rebolledo MD Position: [facility] Outreach Member Role: PCP Address: [address] [place] [address] [address] Veronica Rebolledo MD [place], [place] [address] Telecom: Insurance Providers Guarantor [facility]: [facility] Plan Information #: 1 Payer: [employer] Member Number: NA Policy Number: NA Group Number: NA
--- OUTSIDE RECORDS SUMMARY | 2024-03-29 01:46 | XMS_ITS | Patient Health Record ---
Author Organization Alec Strickland III, MD Address [address] [place] [address] Care Team Providers Care Web Development Instructor Name Role Phone Kesha PRECIADO, [facility] Primary Care Provider Alec Beckwith Unavailable [phone] Allergies Allergen (clinical drug ingredient) Drug/Non Drug Allergy documented on EMR Reaction Allergy Type Onset Date Status Sea Food (uncoded) Unknown Allergy A ctive Reason For Referral No Information Medications Medication SIG (Take, Route, Frequency, Duration) Notes [...] 1 tablet Orally Once a day Active Immunizations Vaccine Route Administration Date Status Comme nts Influenza Unknown 2013 Administered Pneumococcal Unknown 05/08/2006 Administered Hepatitis A (adult) Unknown 10/18/2006 Administered Social History Tobacco Use: Social History Observation Description Date Details (start date - stop date) Former Smoker NA - NA Tobacco Use/Smoking Question Answer Notes Patient is a former smoker How long has it been since you last smoked? 5-10 years Additional Findings: Tobacco Non-User Ex-cigaret te smoker Alcohol Screen Question Answer Notes Did you have a drink containing alcohol in the p ast year? No Points 0 Interpretation Negative Problems Problem Type SNOMED Code ICD Code Onset Dates Problem Status W/U Status Risk Notes Problem 5974645 Former smoker (Z87.891) Active confirmed She has a plan for prevention of relapse in times of stress. I have counseled her about ongoing smoking cessation. Problem 93610250 Hyperlipidemia (E78.5) Active confirmed A fasting lipid profile is not available and has been requested from primary care. Problem 305379379 Asthma (J45.909) Active confirmed It is pollen season and she has occasional wheezing. This is controlled with her medications. Problem 29421673 Hepatitis C (B19.20) Active confirmed There is no sig n at this time of ongoing active infection. Problem 801608973 Anemia (D64.9) Active confirmed Her hematocrit is 34% with a normal mean cell volume. This is likely the anemia of chronic disease and will be observed. Problem 002006305 Thrombocytopenia (D69.6) Active confirmed Her platelet count is now normal at 174,000. The value will be observed. Problem 91378688 Human immunodeficiency virus [HIV] disease (B20) Active confirmed She has not developed any recent infections or HIV related neoplasms. She is compliant with the recommendations of infectious disease. The viral load is well controlled. Problem 988890794 Lobular carcinom a in situ of right breast (D05.01) Active confirmed There is no sign of recurrent disease. She is due for mammography and a study has been ordered. 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 It was thought to be reactive. Problem 61171854 Essential hypertension (I10) Active confirmed Her blood pressure has been normal. She was referred back to primary care for measurement. Problem 47908682 Depressive disorder, not elsewhere classified (F32.9) Active confirmed Her depre ssion is stable and well controlled and she is compliant with her medication. Problem 581436393 Obesity (BMI 35.0-39.9 without comorbidity) (E66.01) Active confirmed Her body mass index is 29 and I have recommended regular exercise and weight reduction through a diet restricted in calories fat in sodium. She has lost six pounds since her last visit. Problem 93459796 Sleep apnea (G47.30) Active confirmed She has been treated for this and denies any daytime somnolence. No additional therapy is necessary. She says she has been compliant with treatment Problem 513682537 H/O carpal tunne l syndrome (Z86.69) Active confirmed She has mi ld symptoms of neuropathy in her hands but these are mild and she is conducting all the activities of daily life without impairment. Problem 804644371 Chronic kidney disease, stage I (N18.1) Active confirmed Her most recent available renal functions are normal. These will be followed carefully. On June 08, 2021. The BUN was 18, creatinine was normal. Problem 19802326 Hepatitis B (B19.10) Active confirmed There is no sig n of ongoing active hepatitis at this time. Plan Of Treatment Pending Test Test Name Order Date PROFILE, RANDOM (COMPREHENSIVE METABOLIC ) 02/10/2019 CBC w DIFF 02/10/2019 XR CHEST 2 VIEW PA & LAT 02/10/2019 Insurance Providers Payer Name Payer Address Payer Phone Subscriber Number Group Number Insured Name Patient Relationship to Insured Coverage Start Date Coverage End Date MEDICAID [address] JEANETTE DESIR [id number] 1974 [employer] Self - patient is the insured Medical (General) History Medical History History ICD Code Hypertension 401.9 [...]
== END 2024-03-23 11:38 | disposition home or self-care (01) ==
PROVIDERS: PCP Internal Medicine; Visit Provider Surgery Vascular Surgery
DX: I83.11 Varicose veins of right lower extremity with inflammation (principal)
CPT/HCPCS: 99213

== ENCOUNTER → 2024-03-23 10:51 | Outpatient (BNVA) | payer MEDICAID, SELFPAY | PROVIDERS: PCP Internal Medicine; Visit Provider Surgery Vascular Surgery | DX: I83.11 Varicose veins of right lower extremity with inflammation (principal); Z87.891 Personal history of nicotine dependence; Z98.890 Other specified postprocedural states | CPT/HCPCS: 99212 ==

== ENCOUNTER 2024-04-05 09:52 | Emergency (ER) | payer MEDICAID, SELFPAY ==
--- NOTE | ~2024-04-05 | XR_ITS ---
EXAMINATION: XR KNEE, RIGHT CLINICAL INFORMATION: Swelling, pain. COMPARISON: None available. TECHNIQUE: 5 views of the right knee. FINDINGS: Large joint effusion. Diffuse demineralization. Prominent superior patellar spur. Mild tricompartmental degenerative changes. Faint calcification in the soft tissues of the proximal calf . Bony exostoses along the proximal fibula with possible adjacent small calcification/ossification. Possible bony exostosis along the posterior medial aspect of the tibia versus extraosseous ossification. XR/XR knee RT 3V IMPRESSION: 1. Large joint effusion. 2. Mild tricompartmental degenerative changes. 3. Bony exostoses along the proximal fibula with possible adjacent small calcification/ossification. 4. Possible bony exostosis along the posterior medial aspect of the tibia versus extraosseous ossification. This study was presented today April 05, 2024 for interpretation. Stat results provided at this time as requested by referring provider. Electronically signed by: Deedee Lord MD 04/05/2024 10:57 AM AMOR
--- NOTE | ~2024-04-05 | CT_ITS ---
EXAMINATION: CT ABDOMEN AND PELVIS WITHOUT CONTRAST CLINICAL INFORMATION: Right flank pain COMPARISON: 07/28/2023 TECHNIQUE: Multidetector volumetric imaging was performed from the superior aspect of the liver through the pubic symphysis. Sagittal and coronal reformatted images were obtained on the technologist's workstation. This CT examination was performed using dose optimization techniques as appropriate, variously including the following: *Automated exposure control *Adjustment of mA and/or kV according to patient size (this includes techniques or standardized protocols for targeted exams where dose is matched to indication/reason for exam; i.e. extremities or head) *Use of iterative reconstruction technique DLP: 645 mGy-cm FINDINGS: LUNG BASES: Punctate calcified granuloma at the left base. No infiltrate or pleural effusion at the lung bases. LIVER, GALLBLADDER, AND BILIARY TREE: Unenhanced liver is grossly normal. No focal mass or intrahepatic biliary dilatation. Gallbladder is surgically absent. PANCREAS: Unremarkable. SPLEEN: Unremarkable. ADRENAL GLANDS: Unremarkable. KIDNEYS AND URETERS: 2.5 mm left nephroliths nonobstructive. No suspicious solid mass or hydronephrosis or perinephric collection. There is a simple appearing cyst, upper pole left kidney at 37 x 37 mm. No further workup needed. BLADDER: Unremarkable. GASTROINTESTINAL TRACT: Moderate stool burden throughout the colon. No bowel obstruction or right or left lower quadrant inflammatory change. Appendix normal. ABDOMINAL WALL: No significant hernia is appreciated. LYMPH NODES: Normal. VASCULAR: There is ectatic and demonstrates minor atherosclerotic change but is nonaneurysmal. PELVIC VISCERA: Punctate calcification in the left body of the uterus and the fibroid. No suspicious mass. No suspicious adnexal collections. There is no ascites in the cul-de-sac. OSSEOUS STRUCTURES: There is advanced degenerative change at the thoracolumbar junction and at the mid to lower lumbar spine. No fracture or destructive process. CT/CT abdomen pelvis wo IV con IMPRESSION: Unremarkable study. No hydronephrosis. Normal appendix. Fleischner guidelines were followed. Electronically signed by: Abdoulaye Fernandez MD 04/05/2024 04:58 PM EST
[2024-04-05 09:58] VITALS: BP 117/59; PULSE 77; RESP 16; TEMP 37; O2SAT 96; BMI 34.3
--- OUTSIDE RECORDS SUMMARY | 2024-04-05 10:02 | XMS_ITS | Patient Health Record ---
Author Organization Alec Strickland III, MD Address [address] [place] [address] Care Team Providers Care Ditch Inspector Name Role Phone Kesha PRECIADO, [facility] Primary Care Provider Alec Beckwith Unavailable [phone] Allergies Allergen (clinical drug ingredient) Drug/Non Drug [...] Problem Status W/U Status Risk Notes Problem 3652218 Former smoker (Z87.891) Active confirmed She has a plan for prevention of relapse in times of stress. I have counseled her about ongoing smoking cessation. Problem 93580267 Hyperlipidemia (E78.5) Active confirmed A fasting lipid profile is not available and has been requested from primary care. Problem 686404934 Asthma (J45.909) Active confirmed It is pollen season and she has occasional wheezing. This is controlled with her medications. Problem 65979924 Hepatitis C (B19.20) Active confirmed There is no sig n at this time of ongoing active infection. Problem 791140155 Anemia (D64.9) Active confirmed Her hematocrit is 34% with a normal mean cell volume. This is likely the anemia of chronic disease and will be observed. Problem 831362861 Thrombocytopenia (D69.6) Active confirmed Her platelet count is now normal at 174,000. The value will be observed. Problem 45431992 Human immunodeficiency virus [HIV] disease (B20) Active confirmed She has not developed any recent infections or HIV related neoplasms. She is compliant with the recommendations of infectious disease. The viral load is well controlled. Problem 618782116 Lobular carcinom a in situ of right breast (D05.01) Active confirmed There is no sign of recurrent disease. She is due for mammography and a study has been ordered. 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 It was thought to be reactive. Problem 39533993 Essential hypertension (I10) Active confirmed Her blood pressure has been normal. She was referred back to primary care for measurement. Problem 66811813 Depressive disorder, not elsewhere classified (F32.9) Active confirmed Her depre ssion is stable and well controlled and she is compliant with her medication. Problem 142178659 Obesity (BMI 35.0-39.9 without comorbidity) (E66.01) Active confirmed Her body mass index is 29 and I have recommended regular exercise and weight reduction through a diet restricted in calories fat in sodium. She has lost six pounds since her last visit. Problem 63680721 Sleep apnea (G47.30) Active confirmed She has been treated for this and denies any daytime somnolence. No additional therapy is necessary. She says she has been compliant with treatment Problem 763673810 H/O carpal tunne l syndrome (Z86.69) Active confirmed She has mi ld symptoms of neuropathy in her hands but these are mild and she is conducting all the activities of daily life without impairment. Problem 616340057 Chronic kidney disease, stage I (N18.1) Active confirmed Her most recent available renal functions are normal. These will be followed carefully. On June 08, 2021. The BUN was 18, creatinine was normal. Problem 59572366 Hepatitis B (B19.10) Active confirmed There is [...] Date MEDICAID [address] JEANETTE DESIR [id number] [phone] [id number] [employer] Self - patient is the [...]
[2024-04-05 10:59] LABS: MANUAL DIFF FLAG NO
[2024-04-05 11:01] LABS: Appearance Urine Cloudy; Color Urine Yellow; Glucose Urine UA Negative (Negative); Leukocyte Esterase Urine Large (3+) (Negative); Nitrite Urine Positive (Negative); UMIC TRIGGER UACC YES; Urine Blood Moderate (2+) (Negative); Urine Ketones Negative (Negative); Urine Protein 30 (1+) mg/dL (Neg-Trace)
[2024-04-05 11:03] LABS: Basophils Percent Auto 0.3 % (0-2); Eosinophils Absolute Auto 0.2 X10*3/uL (0.0-0.4); Eosinophils Percent Auto 3.3 % (0-4); Hematocrit 37.6 % (37.0-47.0); Hemoglobin 12.2 g/dl (12.0-16.0); Imm Gran Abs Auto 0.02 X10*3/uL (0.00-0.03); Imm Gran Pct Auto 0.3 % (0.0-0.4); Lymphocytes Absolute Auto 1.3 X10*3/uL (1.2-4.9); Lymphocytes Percent Auto 22.8 % (20-40); Mean Corpuscular HGB Conc 32.4 g/dl (31.0-35.0); Mean Corpuscular Hemoglobin 29.4 pg (27.0-33.0); Mean Corpuscular Volume 90.6 fL (80.0-98.0); Mean Platelet Volume 10.3 fL (9.4-12.3); Monocytes Absolute Auto 0.4 X10*3/uL (0.1-1.2); Monocytes Percent Auto 6.8 % (2-11); Neutrophils Absolute Auto 3.8 x10*3/uL (2.0-8.3); Neutrophils Percent Auto 66.5 % (45-73); Platelet Count 227 X10*3/uL (160-400); Red Blood Count 4.15 X10*6/uL (4.20-5.50); Red Cell Distribution Width 13.9 % (11.0-16.0); White Blood Count 5.8 X10*3/uL (4.8-10.8)
[2024-04-05 11:04] LABS: Bacteria Urine 1+ (None Seen); Hyaline Casts Urine 0-2 /LPF (0-2); RBC Urine >20 /HPF (0-2); Squamous Epithelial Cell Urine 0-2 /HPF (0-2); UACC Culture Trigger YES; WBC Urine >50 /HPF (0-5)
[2024-04-05 11:12] LABS: Anion Gap 11 (12-20); Blood Urea Nitrogen 24 mg/dL (9-16); Calcium 9.6 mg/dL (8.4-10.2); Carbon Dioxide 30 mmol/L (22-29); Chloride 105 mmol/L (96-108); Creatinine Clr Calc Pharmacy 65.7; Estimated Glomerular Filt Rate > 60; Glucose Random 91 mg/dL (60-115); Potassium 4.6 mmol/L (3.3-5.1); Sodium 141 mmol/L (135-145)
--- NOTE | 2024-04-05 12:02 | ED_ITS ---
HPI - General Adult General Chief complaint: General Medical Stated complaint: Back pain, leg pain Time Seen by Provider: 04/05/24 11:58 Source: patient Mode of arrival: ambulatory Limitations: no limitations History of Present Illness HPI narrative: This is 64 years old the patient presented to the emergency department complaining of right knee pain for about 4 days out traumatic also she is complaining of flank pain. She denies any fever nausea vomiting Onset (ago): day(s) (5) Location: lower extremity (rt knee) Radiation: non-radiation Severity: moderate Quality: burning Pain Consistency: constant Relieving factors: none Exacerbating factors: none Related Data Home Medications ?Medication ?Instructions ?Recorded ?Confirmed elviteg 150 mg-cob 150 mg-emtricit 1 tab PO QAM 07/17/23 12/28/23 200 mg-tenofo alafenam 10 mg tablet (Genvoya) albuterol sulfate 90 mcg/actuation 2 puff inhalation QID PRN asthma 11/19/23 12/28/23 aerosol inhaler (Ventolin HFA) ketotifen fumarate 0.025 % (0.035 2 drp ophthalmic (eye) DAILY 11/19/23 12/28/23 %) eye drops rosuvastatin 40 mg tablet 40 mg PO BEDTIME 11/19/23 12/28/23 losartan 100 mg tablet 100 mg PO DAILY 04/05/24 triamcinolone acetonide 0.5 % 1 appl topical BID 04/05/24 topical cream Previous Rx's ?Medication ?Instructions ?Recorded ondansetron 4 mg disintegrating 4 mg PO Q6-8H PRN nausea and 10/01/21 tablet vomiting #14 tabs albuterol sulfate 2.5 mg/3 mL 2.5 mg (3 mL) inhalation Q4-6H PRN 07/19/23 (0.083 %) solution for nebulization Shortness Of Breath #75 mL dicyclomine 20 mg tablet 20 mg PO TID #90 tabs 07/19/23 furosemide 20 mg tablet 20 mg PO DAILY 30 days #30 tabs 07/19/23 guaifenesin 600 mg tablet, 600 mg PO Q12H PRN cough 3 days #6 07/19/23 extended release 12 hr (Mucinex) tabs meclizine 12.5 mg tablet 12.5 mg PO TID PRN Vertigo #12 tabs 07/19/23 meloxicam 15 mg tablet 15 mg PO DAILY #30 tabs 07/19/23 sertraline 100 mg tablet 100 mg PO DAILY PRN mood #30 tabs 07/19/23 zolpidem 10 mg tablet 10 mg PO BEDTIME #30 tabs 07/19/23 loratadine 10 mg tablet 10 mg PO DAILY #30 tabs 07/20/23 naproxen 500 mg tablet 500 mg PO BID PRN pain 7 days #14 07/28/23 tabs bisacodyl 5 mg tablet,delayed 10 mg (2 x 5 mg) PO BEDTIME 2 days 11/19/23 release (Dulcolax (bisacodyl)) #4 tabs linaclotide 145 mcg capsule 145 mcg PO QAM #30 caps 11/19/23 (Linzess) omeprazole 20 mg capsule,delayed 20 mg PO DAILY #30 caps 11/19/23 release peg 3350-electrolytes 236 240 ml PO Q10M 1 day #4,000 mL 11/19/23 gram-22.74 gram-6.74 gram-5.86 gram solution (Golytely) simethicone 180 mg capsule 180 mg PO QID 30 days #120 caps 11/19/23 hydrocortisone 1 % topical cream 1 appl topical BID PRN itching 12/06/23 (Cortisone (hydrocortisone)) #28.35 grams pyridoxine (vitamin B6) 100 mg 100 mg PO DAILY kidney stones 90 12/28/23 tablet days #90 tabs fosfomycin tromethamine 3 gram 3 g PO Q3D 9 days #3 ea 12/30/23 oral packet fluticasone furoate 200 1 ea inhalation DAILY #1 ea 02/15/24 mcg-vilanterol 25 mcg/dose inhalation powder (Breo Ellipta) umeclidinium 62.5 mcg/actuation 1 inh inhalation DAILY #1 ea 02/15/24 blister powder for inhalation (Incruse Ellipta) Allergies Allergy/AdvReac Type Severity Reaction Status Date / Time shellfish derived Allergy Intermediate HIVES, N/V Verified 04/05/24 10:09 Review of Systems 2 Eyes: Eyes: Reports no additional eye complaints ENT: Reports system reviewed and no additional complaints, except as documented PMFSH Past Medical History Attestation statement: The following information was validated with the patient. 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 HIV (human immunodeficiency virus infection) History of blood transfusion Anemia Hx of renal calculi Difficulty swallowing GERD (gastroesophageal reflux disease) Hepatitis Depression Sleep apnea Asthma Elevated cholesterol HTN (hypertension) Surgical History Hx of colonoscopy Hx of cystoscopy Hx of dilation and curettage Hx of section Hx of reduction mammoplasty Hx of tubal ligation Hx of cholecystectomy Family History Family History Mother Breast cancer Father Heart problem Sister Bone cancer Family/Other Diabetes Social History Social History Household Members: None Housing: Apartment Do you presently have visiting nurse or other home services: No Alcohol intake: current Alcohol intake frequency: does not drink Alcohol type: wine Patient Tobacco Use Status: Former Tobacco user Tobacco use type: Cigarette Cigarette Packs Per Day: 2 Cigarettes Per Day: 40.0 Years Smoked: 40 e-Cigarette/Vaping Use: Never Used Second Hand Smoke Exposure: No Advance Directives: No Advance Directives Information Provided: Yes service: No Sexual orientation: Straight/Heterosexual Gender identity: Female Physical Exam ED Vital Signs: Vital Signs - 24 hr 04/05/24 09:58 04/05/24 12:28 04/05/24 15:02 Temperature 98.6 F 98.8 F 99.6 F Pulse Rate 77 59 56 Respiratory Rate 16 14 16 Blood Pressure 117/59 L 127/57 L 125/54 L Pulse Oximetry 96 100 99 Oxygen Delivery Method Room Air Room Air Room Air BMI result Body Mass Index 34.3 No acute distress Const General: cooperative Nutritional Appearance: average body habitus Orientation/consciousness: patient oriented x3 HENMT Head: Yes normal to inspection General nose exam: Normal external nose present Face and sinus: Yes normal facial exam Mouth: Normal oral and palatal mucosa present Throat: Yes posterior oropharynx normal Resp Effort & Inspection: normal respiratory effort Cardio Jugular venous distension: no JVD Palpation: normal PMI Rhythm: regular rhythm GI Inspection: Yes normal to inspection Palpation (GI): Soft to palpation, not firm and nontender Percussion: Yes normal to percussion Auscultation: normal bowel sounds Skin General skin exam: no rashes or lesions noted, elasticity normal and turgor normal Lesions: no lesions Rashes: no rashes Wounds: no wounds Neuro General: patient oriented x3 Cranial nerves: Yes CN's II-XII intact bilaterally Extrem Other: Examination of the right knee showed swelling the exam is consistent with a joint effusion. Course Reevaluation(s) Reevaluation #1: signed out to Dr Yuliet cordon pending Medications Administered Discontinued Medications Generic Name Dose Route Start Last Admin Trade Name Freq PRN Reason Stop Dose Admin Lidocaine HCl 5 ml 04/05/24 12:24 04/05/24 13:06 Lidocaine Hcl 1 % Mpf 5 Ml Vial INFILTRATI 04/05/24 12:25 5 ml ONCE ONE Administration Procedures Procedure Narrative Procedure Narrative: RT knee Arthrocentesis Under local lateral aspect with 18 g needle obtained about 5 cc synovial fluids Medical Decision Making Lab Data 04/05/24 10:55 04/05/24 10:55 Labs: Lab Results 04/05/24 04/05/24 Range/Units 10:55 13:24 WBC 5.8 (4.8-10.8) X10*3/uL RBC 4.15 L (4.20-5.50) X10*6/uL Hgb 12.2 (12.0-16.0) g/dl Hct 37.6 (37.0-47.0) % MCV 90.6 (80.0-98.0) fL MCH 29.4 (27.0-33.0) pg MCHC 32.4 (31.0-35.0) g/dl RDW 13.9 (11.0-16.0) % Plt Count 227 D (160-400) X10*3/uL MPV 10.3 (9.4-12.3) fL Immature Gran % (Auto) 0.3 (0.0-0.4) % Neut % (Auto) 66.5 (45-73) % Lymph % (Auto) 22.8 (20-40) % Antelope % (Auto) 6.8 (2-11) % Eos % (Auto) 3.3 (0-4) % Baso % (Auto) 0.3 (0-2) % Lymph # (Auto) 1.3 (1.2-4.9) X10*3/uL Antelope # (Auto) 0.4 (0.1-1.2) X10*3/uL Eos # (Auto) 0.2 (0.0-0.4) X10*3/uL Baso # (Auto) 0.0 (0.0-0.2) X10*3/uL Abs Immat Gran (auto) 0.02 (0.00-0.03) X10*3/uL Absolute Neuts (auto) 3.8 (2.0-8.3) x10*3/uL Absolute Nucleated RBC 0.000 (0.0-0.012) X10*3/uL Nucleated RBC % (auto) 0.0 (0.0-0.2) /100WBC Sodium 141 (135-145) mmol/L Potassium 4.6 (3.3-5.1) mmol/L Chloride 105 (96-108) mmol/L Carbon Dioxide 30 H (22-29) mmol/L Anion Gap 11 L (12-20) BUN 24 H (9-16) mg/dL Creatinine 0.92 (0.5-1.4) mg/dL Estim Creat Clear Calc 65.7 Estimated GFR > 60 Random Glucose 91 (60-115) mg/dL Calcium 9.6 (8.4-10.2) mg/dL Urine Color Yellow Urine Appearance Cloudy Urine pH 6.0 (5.0-9.0) Ur Specific [place] 1.020 (1.005-1.025) Urine Protein 30 (1+) H (Neg-Trace) mg/dL Urine Glucose (UA) Negative (Negative) mg/dL Urine Ketones Negative (Negative) mg/dL Urine Blood Moderate (2+) H (Negative) Urine Nitrite Positive H (Negative) Ur Leukocyte Esterase Large (3+) H (Negative) Urine RBC >20 H (0-2) /HPF Urine WBC >50 H (0-5) /HPF Ur Squamous Epith Cells 0-2 (0-2) /HPF Urine Bacteria 1+ (None Seen) Hyaline Casts 0-2 (0-2) /LPF Synovial Source rt knee Synovial WBC 0.578 X10*3/uL Synovial RBC < 0.002 X10*6/uL Synovial Neutrophils 32 % Synovial Lymphocytes 26 % Synovial Monocytes 27 % Discharge Plan Discharge Clinical Impression: Knee pain, right Qualifiers: Chronicity: acute Qualified Code(s): M25.561 - Pain in right knee Prescriptions: No Action fosfomycin tromethamine 3 gram packet 3 g PO Q3D 9 Days Qty: 3 0RF Rx Instructions: One dose (one packet) every 3 days ondansetron 4 mg tablet,disintegrating 4 mg PO Q6-8H PRN (Reason: nausea and vomiting) Qty: 14 0RF hydrocortisone [Cortisone (hydrocortisone)] 1 % cream 1 appl topical BID PRN (Reason: itching) Qty: 28.35 0RF Genvoya [phone] mg tablet 1 tab PO QAM Rx Instructions: with breakfast guaifenesin [Mucinex] 600 mg tablet extended release 12hr 600 mg PO Q12H PRN (Reason: cough) 3 Days Qty: 6 0RF albuterol sulfate 2.5 mg /3 mL (0.083 %) Solution For Nebulization 2.5 mg INHALATION Q4-6H PRN (Reason: Shortness Of Breath) Qty: 75 0RF meloxicam 15 mg tablet 15 mg PO DAILY Qty: 30 0RF sertraline 100 mg tablet 100 mg PO DAILY PRN (Reason: mood) Qty: 30 0RF meclizine 12.5 mg tablet 12.5 mg PO TID PRN (Reason: Vertigo) Qty: 12 0RF dicyclomine 20 mg tablet 20 mg PO TID Qty: 90 0RF furosemide 20 mg tablet 20 mg PO DAILY 30 Days Qty: 30 6RF zolpidem 10 mg tablet 10 mg PO BEDTIME Qty: 30 0RF loratadine 10 mg Tablet 10 mg PO DAILY Qty: 30 0RF naproxen 500 mg tablet 500 mg PO BID PRN (Reason: pain) 7 Days Qty: 14 0RF losartan 100 mg tablet 100 mg PO DAILY triamcinolone acetonide 0.5 % cream 1 appl topical BID pyridoxine (vitamin B6) 100 mg tablet 100 mg PO DAILY 90 Days Qty: 90 3RF Incruse Ellipta 62.5 mcg/actuation blister with device 1 inh inhalation DAILY Qty: 1 6RF fluticasone furoate-vilanterol [Breo Ellipta] 200-25 mcg/dose blister with device 1 ea inhalation DAILY Qty: 1 6RF albuterol sulfate [Ventolin HFA] 90 mcg/actuation HFA aerosol inhaler 2 puff inhalation QID PRN (Reason: asthma) rosuvastatin 40 mg tablet 40 mg PO BEDTIME ketotifen fumarate 0.025 % (0.035 %) drops 2 drp ophthalmic (eye) DAILY omeprazole 20 mg capsule,delayed release(DR/EC) 20 mg PO DAILY Qty: 30 6RF Linzess 145 mcg capsule 145 mcg PO QAM Qty: 30 6RF simethicone 180 mg capsule 180 mg PO QID 30 Days Qty: 120 6RF Rx Instructions: after meals peg 3350-electrolytes [Golytely] 236-22.74-6.74 -5.86 gram recon soln 240 ml PO Q10M 1 Days Qty: 4000 0RF Rx Instructions: until fecal effluent is clear; do not exceed a total volume of 2,000 mL bisacodyl [Dulcolax (bisacodyl)] 5 mg tablet,delayed release (DR/EC) 10 mg PO BEDTIME 2 Days Qty: 4 0RF Print Language: French
[2024-04-05 12:28] VITALS: BP 127/57; PULSE 59; RESP 14; TEMP 37.1; O2SAT 100
[2024-04-05] MEDS: Lidocaine HCl 1 % MPF 5 ML VIAL INFILTRATI (13:06)
[2024-04-05 13:35] LABS: Source Synovial Fluid rt knee
[2024-04-05 13:59] LABS: MN% 64.4 %; PMN% 35.6 %; WBC Synovial Fluid 0.578 X10*3/uL
[2024-04-05 14:08] LABS: RBC Synovial Fluid < 0.002 X10*6/uL
[2024-04-05 14:54] LABS: BF Shift QC OK YES; Lymphocytes Synovial Fluid 26 %; Man Diluent Bkgrd OK YES; Monocytes Synovial Fluid 27 %; Neutrophils Synovial Fluid 32 %
[2024-04-05 15:02] VITALS: BP 125/54; PULSE 56; RESP 16; TEMP 37.6; O2SAT 99
[2024-04-05] MEDS: oxyCODONE HCl Immed Release 5 MG TABLET PO (16:11)
[2024-04-05] MEDS: Meropenem 1 GM VIAL IVPUSH (16:49)
[2024-04-05 17:03] LABS: Lactic Acid 1.9 mmol/L (0.5-2.0)
[2024-04-05 17:29] VITALS: BP 102/41; PULSE 71; RESP 18; TEMP 36.7; O2SAT 96
[2024-04-05 17:31] VITALS: BP 102/41; PULSE 71; RESP 18; TEMP 36.7; O2SAT 96
[2024-04-06 07:21] LABS: Glucose Synovial Fluid 91; Total Protein Synovial Fluid 3.5
== END 2024-04-05 17:32 | disposition home or self-care (01) ==
PROVIDERS: Emergency Medicine; Emergency Provider Emergency Medicine; PCP Internal Medicine
DX: M25.561 Pain in right knee (principal); R10.2 Pelvic and perineal pain; R11.0 Nausea; Z87.891 Personal history of nicotine dependence; Z79.899 Other long term (current) drug therapy
CPT/HCPCS: 36415; 73562; 74176; 80048; 81001; 81003; 82945; 83605; 84157; 85025; 87040; 87070; 87073; 87086; 87088; 87186; 87205; 89051; 89060; 96361; 96374; 99284; J2003; J2185

== ENCOUNTER 2024-04-19 14:43 | Inpatient (IN) | payer MEDICAID, SELFPAY ==
--- NOTE | ~2024-04-19 | CT_ITS ---
CLINICAL HISTORY: left flank pain, obs. stone? CT abdomen and pelvis without contrast Comparison: CT/SR - CT ABDOMEN PELVIS WO IV CON - 04/05/24 12:19 EST Findings: No consolidation or effusion. The gallbladder is surgically absent. The solid organs are within normal limits. There are nonobstructing left renal calculi. No radiopaque right renal calculi are identified. No hydronephrosis or hydroureter. No bowel obstruction, pneumoperitoneum, or pneumatosis. Calcified uterine fibroid disease identified. The bladder is minimally distended with fluid. Diffuse bladder wall thickening present. Normal appendix. The bones are intact. Vacuum disc phenomenon identified at L5-S1. IMPRESSION: 1. Bladder wall thickening. This may be related to bladder underdistention or cystitis. Recommend clinical correlation with urinalysis results for further evaluation. No other CT evidence for an acute inflammatory process identified within the abdomen or pelvis. 2. Nonobstructing left renal calculi present. No hydronephrosis or hydroureter. This document has been electronically signed by: Ad Montague MD on 04/19/2024 21:19:07
--- NOTE | ~2024-04-19 | US_ITS ---
CLINICAL HISTORY: pain swelling Venous duplex ultrasound right lower extremity Comparison: US/OK/SR - US VENOUS DUPLEX LE BI - 12/01/23 13:02 EDT Findings: The visualized deep veins of the right lower extremity are fully compressible with normal Doppler color flow and spectral tracings. The visualized portion of the left common femoral vein also appears patent on color and spectral Doppler imaging. No popliteal cyst. Partial visualization of an anechoic area with posterior acoustic enhancement superior to the right patella, suggesting fluid, possibly consistent with a suprapatellar effusion. IMPRESSION: 1. Negative for right lower extremity deep vein thrombosis. 2. Possible partial visualization of a right suprapatellar effusion. This document has been electronically signed by: Ad Montague MD on 04/19/2024 23:10:08
--- NOTE | ~2024-04-19 | XR_ITS ---
CLINICAL HISTORY: pain and swelling 2 view right knee Comparison: None Findings: No acute fractures or dislocations. Moderate suprapatellar enthesophyte at the site of the quadriceps tendon insertion. No cortical destruction of the bone. Small osteophytes are identified at the collateral joint space compartment. Probable small right suprapatellar effusion. No radiopaque foreign body. IMPRESSION: 1. No acute fracture or dislocation injury identified at the right knee. 2. Probable small right suprapatellar effusion. This document has been electronically signed by: Ad Montague MD on 04/19/2024 23:26:31
[2024-04-19 15:28] VITALS: BP 167/44; PULSE 65; RESP 18; TEMP 37; O2SAT 98; BMI 34.4
--- NOTE | 2024-04-19 15:36 | ED_ITS ---
HPI - General Adult General Chief complaint: General Medical Stated complaint: pain in kidney back and legs Time Seen by Provider: 04/19/24 19:52 Source: patient Limitations: language barrier History of Present Illness ED Provider: Jocelynn Mendieta PA-C HPI narrative: 64 y/o F with hx of kidney stones, recurrent UTIs, interstitial lung disease, emphysema, arthritis, fibromyalgia, hepatitis, HIV on HAART with no current viral detectable load, presents given need for IV antibiotic therapy. Patient was seen at [facility] and her outpatient urinalysis showed ESBL UTI that is sensitive to ertapenem and gentamicin. Associated dysuria, discolored urine, increased urinary frequency, only voiding small amounts of urine at a time. Patient also complains of left flank pain. Denies nausea vomiting or fever. Lastly, patient complains of left calf pain and swelling since February. Related Data Home Medications ?Medication ?Instructions ?Recorded ?Confirmed elviteg 150 mg-cob 150 mg-emtricit 1 tab PO QAM 07/17/23 12/28/23 200 mg-tenofo alafenam 10 mg tablet (Genvoya) albuterol sulfate 90 mcg/actuation 2 puff inhalation QID PRN asthma 11/19/23 12/28/23 aerosol inhaler (Ventolin HFA) ketotifen fumarate 0.025 % (0.035 2 drp ophthalmic (eye) DAILY 11/19/23 12/28/23 %) eye drops rosuvastatin 40 mg tablet 40 mg PO BEDTIME 11/19/23 12/28/23 losartan 100 mg tablet 100 mg PO DAILY 04/05/24 triamcinolone acetonide 0.5 % 1 appl topical BID 04/05/24 topical cream Previous Rx's ?Medication ?Instructions ?Recorded ondansetron 4 mg disintegrating 4 mg PO Q6-8H PRN nausea and 10/01/21 tablet vomiting #14 tabs albuterol sulfate 2.5 mg/3 mL 2.5 mg (3 mL) inhalation Q4-6H PRN 07/19/23 (0.083 %) solution for nebulization Shortness Of Breath #75 mL dicyclomine 20 mg tablet 20 mg PO TID #90 tabs 07/19/23 furosemide 20 mg tablet 20 mg PO DAILY 30 days #30 tabs 07/19/23 guaifenesin 600 mg tablet, 600 mg PO Q12H PRN cough 3 days #6 07/19/23 extended release 12 hr (Mucinex) tabs meclizine 12.5 mg tablet 12.5 mg PO TID PRN Vertigo #12 tabs 07/19/23 meloxicam 15 mg tablet 15 mg PO DAILY #30 tabs 07/19/23 sertraline 100 mg tablet 100 mg PO DAILY PRN mood #30 tabs 07/19/23 zolpidem 10 mg tablet 10 mg PO BEDTIME #30 tabs 07/19/23 loratadine 10 mg tablet 10 mg PO DAILY #30 tabs 07/20/23 naproxen 500 mg tablet 500 mg PO BID PRN pain 7 days #14 07/28/23 tabs bisacodyl 5 mg tablet,delayed 10 mg (2 x 5 mg) PO BEDTIME 2 days 11/19/23 release (Dulcolax (bisacodyl)) #4 tabs linaclotide 145 mcg capsule 145 mcg PO QAM #30 caps 11/19/23 (Linzess) omeprazole 20 mg capsule,delayed 20 mg PO DAILY #30 caps 11/19/23 release peg 3350-electrolytes 236 240 ml PO Q10M 1 day #4,000 mL 11/19/23 gram-22.74 gram-6.74 gram-5.86 gram solution (Golytely) simethicone 180 mg capsule 180 mg PO QID 30 days #120 caps 11/19/23 hydrocortisone 1 % topical cream 1 appl topical BID PRN itching 12/06/23 (Cortisone (hydrocortisone)) #28.35 grams pyridoxine (vitamin B6) 100 mg 100 mg PO DAILY kidney stones 90 12/28/23 tablet days #90 tabs fosfomycin tromethamine 3 gram 3 g PO Q3D 9 days #3 ea 12/30/23 oral packet fluticasone furoate 200 1 ea inhalation DAILY #1 ea 02/15/24 mcg-vilanterol 25 mcg/dose inhalation powder (Breo Ellipta) umeclidinium 62.5 mcg/actuation 1 inh inhalation DAILY #1 ea 02/15/24 blister powder for inhalation (Incruse Ellipta) morphine 15 mg immediate release 15 mg PO Q6H PRN pain #12 tabs 04/05/24 tablet nitrofurantoin 100 mg PO BID 7 days #14 caps 04/05/24 monohydrate/macrocrystals 100 mg capsule (Macrobid) Allergies Allergy/AdvReac Type Severity Reaction Status Date / Time shellfish derived Allergy Intermediate HIVES, N/V Verified 04/19/24 15:30 Review of Systems 2 Review of Systems: Yes all other systems are reviewed and are negative Constitutional: Constitutional: Denies fatigue and Denies fever(s) Cardiovascular: Cardiovascular: Denies chest pain and Denies dyspnea Respiratory: Respiratory: Denies cough and Denies dyspnea Gastrointestinal: Gastrointestinal: Denies nausea and Denies vomiting Genitourinary: Genitourinary: Reports dysuria and Reports flank pain Musculoskeletal: Musculoskeletal: Reports back pain Endocrine: Endocrine: Denies fatigue PMFSH Past Medical History Attestation statement: The following information was validated with the patient. 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 HIV (human immunodeficiency virus infection) History of blood transfusion Anemia Hx of renal calculi Difficulty swallowing GERD (gastroesophageal reflux disease) Hepatitis Depression Sleep apnea Asthma Elevated cholesterol HTN (hypertension) Surgical History Hx of colonoscopy Hx of cystoscopy Hx of dilation and curettage Hx of section Hx of reduction mammoplasty Hx of tubal ligation Hx of cholecystectomy Family History Family History Mother Breast cancer Father Heart problem Sister Bone cancer Family/Other Diabetes Social History Social History Household Members: None Housing: Apartment Do you presently have visiting nurse or other home services: No Alcohol intake: current Alcohol intake frequency: holidays/special occasions only Alcohol type: wine Patient Tobacco Use Status: Former Tobacco user Tobacco use type: Cigarette Cigarette Packs Per Day: 2 Cigarettes Per Day: 40.0 Years Smoked: 40 Smoked in Last 30 Days: No e-Cigarette/Vaping Use: Never Used Second Hand Smoke Exposure: No Substance Use Type: Former Substance User Advance Directives: No Advance Directives Information Provided: Yes Do you have a plan to hurt others: No Plan service: No Sexual orientation: Straight/Heterosexual Gender identity: Female Physical Exam ED Vital Signs: Vital Signs - 24 hr 04/19/24 15:28 04/19/24 19:52 04/19/24 21:52 Temperature 98.6 F 98.0 F 98.0 F Pulse Rate 65 74 67 Respiratory Rate 18 20 18 Blood Pressure 167/44 H 136/66 127/47 L Pulse Oximetry 98 97 99 Oxygen Delivery Method Room Air Room Air Room Air BMI result Body Mass Index 34.4 Const Other: Alert, well-appearing Orientation/consciousness: patient oriented x3 Resp Effort & Inspection: normal respiratory effort Cardio Other: Normal peripheral perfusion GI Other: Soft non distended nontender no guarding obese abdomen Back/Spine/Pelvis Other: No left CVA tenderness Skin Other: Warm dry no rash Neuro General: patient oriented x3, no focal motor deficits and CN's II-XI intact bilaterally Psych Other: Cooperative Course Course Course Narrative: RME, this is a rapid medical exam performed by Juan Mcknight please refer to primary provider for complete H&P- 64-year-old female presents for evaluation of ?IV antibiotics. ? Patient was seen at [facility] and her outpatient urinalysis showed ESBL UTI that is sensitive to ertapenem and gentamicin. The patient complains of flank pain and leg pain. Plan for labs, repeat urinalysis Medications Administered Discontinued Medications Generic Name Dose Route Start Last Admin Trade Name Freq PRN Reason Stop Dose Admin Ertapenem 1 gm 04/19/24 20:08 04/19/24 20:39 Ertapenem Sodium 1 Gm Vial IVPUSH 04/19/24 20:09 1 gm ONCE ONE Administration Ketorolac Tromethamine 15 mg 04/19/24 20:08 04/19/24 20:39 Ketorolac Tromethamine 15 Mg/Ml Vial IVPUSH 04/19/24 20:09 15 mg ONCE ONE Administration Medical Decision Making Medical Decision Making MDM Narrative: 64 y/o F with hx of kidney stones, recurrent UTIs, interstitial lung disease, emphysema, arthritis, fibromyalgia, hepatitis, HIV on HAART with no current viral detectable load, presents given need for IV antibiotic therapy. Patient was seen at [facility] and her outpatient urinalysis showed ESBL UTI that is sensitive to ertapenem and gentamicin. Associated dysuria, discolored urine, increased urinary frequency, only voiding small amounts of urine at a time. Patient also complains of left flank pain. Denies nausea vomiting or fever. Lastly, patient complains of left calf pain and swelling since February. Problem: Kidney stones, recurrent UTIs, hepatitis HIV History: Per patient I have considered the following differential diagnoses: infected obstructing stone, pyelonephritis, complex UTI, DVT Plan: Patient should be admitted for this complex urinary tract infection, given concurrent flank pain with a history of stones, need to rule out presence of an infected obstructing stone. We will obtain a non-con CT scan. In addition to her screening labs, we are repeating the urinalysis, the adding blood cultures and a lactic acid. To note this is not sepsis, the patient is completely hemodynamically stable without a fever, I am ordering blood cultures due to the fact that she will be receiving IV antibiotic therapy. Added an ultrasound of the right lower extremity given objective evidence of potential DVT on exam I have reviewed the following tests: Labs: No leukocytosis, not anemic, no electrolyte abnormality, renal function normal, urine infected from April 05,cx as followed urine still appearing infected today Name: America Bower Age/Sex: 64/F : 1960 Unit#: [id number] Attend Dr: Sandhya Horvath DO Re04/05/24 Status: DEP ER Location: [facility] isch: Specimen: [id number] Collected: 04/05/24-UNK Status: COMP Req#: [id number] Received: 04/05/24-1115 Source: [facility] Sp Desc: Clean Cat Subm Dr: Generic ED Physician Ordered: Urine Culture Procedure Result Verified Urine Culture Final 04/10/24 Organism 1 Escherichia coli Quant > 100,000 cfu/mL ESBL Note: NOTE: Extended-Spectrum Beta-Lactamase enzyme present E coli M.I.C. RX --------- --- Ampicillin >=32 R Cefazolin >=32 R Cefepime 16 R Ceftriaxone >=64 R Ciprofloxacin 1 R Ertapenem <=0.12 S Gentamicin <=1 S Nitrofurantoin 64 I Trimethoprim/Sulfamethoxazole >=[address] abdomen and pelvis:IMPRESSION: 1. Bladder wall thickening. This may be related to bladder underdistention or cystitis. Recommend clinical correlation with urinalysis results for further evaluation. No other CT evidence for an acute inflammatory process identified within the abdomen or pelvis. 2. Nonobstructing left renal calculi present. No hydronephrosis or hydroureter. This document has been electronically signed by: Ad Montague MD on 04/19/2024 21:19:07 Ultrasound right lower extremity: pending at time of admit Lab Data 04/19/24 17:37 04/19/24 17:37 Labs: Lab Results 04/19/24 04/19/24 Range/Units 17:37 20:25 WBC 5.0 (4.8-10.8) X10*3/uL RBC 4.07 L (4.20-5.50) X10*6/uL Hgb 12.0 (12.0-16.0) g/dl Hct 36.5 L (37.0-47.0) % MCV 89.7 (80.0-98.0) fL MCH 29.5 (27.0-33.0) pg MCHC 32.9 (31.0-35.0) g/dl RDW 12.7 (11.0-16.0) % Plt Count 218 (160-400) X10*3/uL MPV 10.4 (9.4-12.3) fL Immature Gran % (Auto) 0.2 (0.0-0.4) % Neut % (Auto) 58.2 (45-73) % Lymph % (Auto) 31.5 (20-40) % [place] % (Auto) 6.3 (2-11) % Eos % (Auto) 3.6 (0-4) % Baso % (Auto) 0.2 (0-2) % Lymph # (Auto) 1.6 (1.2-4.9) X10*3/uL [place] # (Auto) 0.3 (0.1-1.2) X10*3/uL Eos # (Auto) 0.2 (0.0-0.4) X10*3/uL Baso # (Auto) 0.0 (0.0-0.2) X10*3/uL Abs Immat Gran (auto) 0.01 (0.00-0.03) X10*3/uL Absolute Neuts (auto) 2.9 (2.0-8.3) x10*3/uL Absolute Nucleated RBC 0.000 (0.0-0.012) X10*3/uL Nucleated RBC % (auto) 0.0 (0.0-0.2) /100WBC PT 12.0 (10.9-12.4) SEC INR 1.0 (0.9-1.1) Sodium 142 (135-145) mmol/L Potassium 3.7 (3.3-5.1) mmol/L Chloride 108 (96-108) mmol/L Carbon Dioxide 28 (22-29) mmol/L Anion Gap 10 L (12-20) BUN 22 H (9-16) mg/dL Creatinine 0.85 (0.5-1.4) mg/dL Estim Creat Clear Calc 71.2 Estimated GFR > 60 Random Glucose 118 H (60-115) mg/dL Lactic Acid 1.5 (0.5-2.0) mmol/L Calcium 9.2 (8.4-10.2) mg/dL Total Bilirubin 0.3 (0.0-1.0) mg/dL AST 22 (5-31) U/L ALT 16 (0-31) U/L Alkaline Phosphatase 67 (39-117) U/L Total Protein 7.9 (6.5-8.0) g/dL Albumin 4.1 (3.5-5.0) g/dL Urine Color Yellow Urine Appearance Cloudy Urine pH 6.0 (5.0-9.0) Ur Specific [place] 1.015 (1.005-1.025) Urine Protein Trace (Neg-Trace) mg/dL Urine Glucose (UA) Negative (Negative) mg/dL Urine Ketones Negative (Negative) mg/dL Urine Blood Trace H (Negative) Urine Nitrite Negative (Negative) Ur Leukocyte Esterase Large (3+) H (Negative) Urine RBC 3-5 H (0-2) /HPF Urine WBC >50 H (0-5) /HPF Ur Squamous Epith Cells 11-20 (0-2) /HPF Urine Bacteria 1+ (None Seen) Hyaline Casts 0-2 (0-2) /LPF Influenza Type A (PCR) NEGATIVE (Negative) Influenza Type B (PCR) NEGATIVE (Negative) RSV RNA Qual (PCR) NEGATIVE (Negative) SARS-CoV-2 RNA (RT-PCR) NEGATIVE (Negative) Discharge Plan Discharge Clinical Impression: Infection due to ESBL-producing Escherichia coli, UTI (urinary tract infection), Calf swelling Patient Disposition: Admitted As Inpatient
[2024-04-19 17:40] LABS: MANUAL DIFF FLAG NO
[2024-04-19 17:42] LABS: Basophils Percent Auto 0.2 % (0-2); Eosinophils Absolute Auto 0.2 X10*3/uL (0.0-0.4); Eosinophils Percent Auto 3.6 % (0-4); Hematocrit 36.5 % (37.0-47.0); Imm Gran Abs Auto 0.01 X10*3/uL (0.00-0.03); Imm Gran Pct Auto 0.2 % (0.0-0.4); Lymphocytes Absolute Auto 1.6 X10*3/uL (1.2-4.9); Lymphocytes Percent Auto 31.5 % (20-40); Mean Corpuscular HGB Conc 32.9 g/dl (31.0-35.0); Mean Corpuscular Hemoglobin 29.5 pg (27.0-33.0); Mean Corpuscular Volume 89.7 fL (80.0-98.0); Mean Platelet Volume 10.4 fL (9.4-12.3); Monocytes Absolute Auto 0.3 X10*3/uL (0.1-1.2); Monocytes Percent Auto 6.3 % (2-11); Neutrophils Absolute Auto 2.9 x10*3/uL (2.0-8.3); Neutrophils Percent Auto 58.2 % (45-73); Platelet Count 218 X10*3/uL (160-400); Red Blood Count 4.07 X10*6/uL (4.20-5.50); Red Cell Distribution Width 12.7 % (11.0-16.0)
[2024-04-19 18:01] LABS: Alanine Aminotransferase 16 U/L (0-31); Albumin Level 4.1 g/dL (3.5-5.0); Alkaline Phosphatase 67 U/L (39-117); Anion Gap 10 (12-20); Aspartate Amino Transferase 22 U/L (5-31); Bilirubin Total 0.3 mg/dL (0.0-1.0); Blood Urea Nitrogen 22 mg/dL (9-16); Calcium 9.2 mg/dL (8.4-10.2); Carbon Dioxide 28 mmol/L (22-29); Chloride 108 mmol/L (96-108); Creatinine Clr Calc Pharmacy 71.2; Estimated Glomerular Filt Rate > 60; Glucose Random 118 mg/dL (60-115); Potassium 3.7 mmol/L (3.3-5.1); Sodium 142 mmol/L (135-145); Total Protein 7.9 g/dL (6.5-8.0)
[2024-04-19 18:20] LABS: Influenza A PCR NEGATIVE (Negative); Influenza B PCR NEGATIVE (Negative); Resp Syncy Virus RNA Qual PCR NEGATIVE (Negative); SARS COV2 PCR INHOUSE NEGATIVE (Negative)
[2024-04-19 19:52] VITALS: BP 136/66; PULSE 74; RESP 20; TEMP 36.7; O2SAT 97
[2024-04-19 20:35] LABS: Appearance Urine Cloudy; Color Urine Yellow; Glucose Urine UA Negative (Negative); Leukocyte Esterase Urine Large (3+) (Negative); Nitrite Urine Negative (Negative); Specific Gravity - Urine 1.015 (1.005-1.025); UMIC TRIGGER UACC YES; Urine Blood Trace (Negative); Urine Ketones Negative (Negative); Urine Protein Trace mg/dL (Neg-Trace)
[2024-04-19] MEDS: Ketorolac Tromethamine 15 MG/ML VIAL IVPUSH (20:39)
[2024-04-19] MEDS: Ertapenem Sodium 1 GM VIAL IVPUSH (20:39)
[2024-04-19 20:40] LABS: Bacteria Urine 1+ (None Seen); Hyaline Casts Urine 0-2 /LPF (0-2); UACC Culture Trigger YES; WBC Urine >50 /HPF (0-5)
[2024-04-19 20:47] LABS: Lactic Acid 1.5 mmol/L (0.5-2.0)
[2024-04-19 21:52] VITALS: BP 127/47; PULSE 67; RESP 18; TEMP 36.7; O2SAT 99
--- NOTE | 2024-04-19 22:13 | PM.IMHP ---
History of Present Illness Date of Service: 04/19/24 Chief Complaint: urinary hesitancy This is a 64-year-old female with pertinent history of HIV on HAART, gastroesophageal reflux disease, mixed hyperlipidemia, mood disorder, asthma/copd not on home oxygen, fibromyalgia, interstitial lung disease who presents to the emergency department for evaluation of urinary hesitancy and back pain. Patient is [place] speaking and history obtained with the help of retail marketing coordinator. Patient states she has been having urinary hesitancy and urgency that has been ongoing for the last few days. Also noticed change in color of urine. Patient states she was recently treated for UTI with oral antibiotics and completed her antibiotic course 2 days ago. Outpatient urine culture reveals ESBL E coli. Patient is compliant with her anti-retroviral therapy for HIV, her last CD4 count was 351 and viral load undetectable. Denies nausea, vomiting, fever, chills, chest pain, palpitations, shortness of breath, changes in bowel habits. Endorses right leg pain that has been ongoing for a month In the emergency department, urine concerning for UTI. Imaging with cystitis Review of Systems Constitutional: Constitutional: Reports fatigue and Reports malaise Cardiovascular: Cardiovascular: Reports no additional cardiovascular complaints Respiratory: Respiratory: Reports no additional respiratory complaints Gastrointestinal: Gastrointestinal: Reports no additional gastrointestinal complaints Genitourinary: Genitourinary: Reports urinary hesitancy and Reports urinary urgency Endocrine: Endocrine: Reports fatigue [facility] 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 HIV (human immunodeficiency virus infection) History of blood transfusion Anemia Hx of renal calculi Difficulty swallowing GERD (gastroesophageal reflux disease) Hepatitis Depression Sleep apnea Asthma Elevated cholesterol HTN (hypertension) Family History Mother Breast cancer Father Heart problem Sister Bone cancer Family/Other Diabetes Surgical History Hx of colonoscopy Hx of cystoscopy Hx of dilation and curettage Hx of section Hx of reduction mammoplasty Hx of tubal ligation Hx of cholecystectomy Social History Household Members: None Housing: Apartment Do you presently have visiting nurse or other home services: No Alcohol intake: current Alcohol intake frequency: holidays/special occasions only Alcohol type: wine Patient Tobacco Use Status: Former Tobacco user Tobacco use type: Cigarette Cigarette Packs Per Day: 2 Cigarettes Per Day: 40.0 Years Smoked: 40 Smoked in Last 30 Days: No e-Cigarette/Vaping Use: Never Used Second Hand Smoke Exposure: No Substance Use Type: Former Substance User Advance Directives: No Advance Directives Information Provided: Yes Do you have a plan to hurt others: No Plan service: No Sexual orientation: Straight/Heterosexual Gender identity: Female Meds Allergies Allergy/AdvReac Type Severity Reaction Status Date / Time shellfish derived Allergy Intermediate HIVES, N/V Verified 04/19/24 15:30 Home Medications ?Medication ?Instructions ?Recorded ?Confirmed ?Last Taken ?Type elviteg 150 mg-cob 150 mg-emtricit 1 tab PO QAM 07/17/23 12/28/23 Unknown History 200 mg-tenofo alafenam 10 mg tablet (Genvoya) albuterol sulfate 90 mcg/actuation 2 puff inhalation QID PRN asthma 11/19/23 12/28/23 Unknown History aerosol inhaler (Ventolin HFA) ketotifen fumarate 0.025 % (0.035 2 drp ophthalmic (eye) DAILY 11/19/23 12/28/23 Unknown History %) eye drops rosuvastatin 40 mg tablet 40 mg PO BEDTIME 11/19/23 12/28/23 Unknown History losartan 100 mg tablet 100 mg PO DAILY 04/05/24 Unknown History triamcinolone acetonide 0.5 % 1 appl topical BID 04/05/24 Unknown History topical cream Physical Exam Vital Signs and Narrative: Vital Signs: Last Vital Signs Temp 98.0 F 04/19/24 21:52 Pulse 67 04/19/24 21:52 Resp 18 04/19/24 21:52 BP 127/47 L 04/19/24 21:52 Pulse Ox 99 04/19/24 21:52 O2 Del Method Room Air 04/19/24 21:52 BMI result Body Mass Index 34.4 Middle-aged female lying in bed in mild distress Neck supple, no JVD Regular rate and rhythm, S1-S2 heard No wheezing or crackles Abdomen with no CVA tenderness Patient is awake, alert and oriented to self, place, time and person ; no focal motor deficit Psych: Normal mood No pedal edema Results Labs 04/19/24 17:37 04/19/24 17:37 Labs: Laboratory Results - last 24 hr 04/19/24 04/19/24 17:37 20:25 MCV 89.7 MCH 29.5 MCHC 32.9 RDW 12.7 Plt Count 218 MPV 10.4 Immature Gran % (Auto) 0.2 Neut % (Auto) 58.2 Lymph % (Auto) 31.5 [place] % (Auto) 6.3 Eos % (Auto) 3.6 Baso % (Auto) 0.2 Lymph # (Auto) 1.6 [place] # (Auto) 0.3 Eos # (Auto) 0.2 Baso # (Auto) 0.0 Abs Immat Gran (auto) 0.01 Absolute Neuts (auto) 2.9 Absolute Nucleated RBC 0.000 Nucleated RBC % (auto) 0.0 PT 12.0 INR 1.0 Anion Gap 10 L Estim Creat Clear Calc 71.2 Estimated GFR > 60 Random Glucose 118 H Lactic Acid 1.5 Calcium 9.2 Total Bilirubin 0.3 AST 22 ALT 16 Alkaline Phosphatase 67 Total Protein 7.9 Albumin 4.1 Urine Color Yellow Urine Appearance Cloudy Urine pH 6.0 Ur Specific [place] 1.015 Urine Protein Trace Urine Glucose (UA) Negative Urine Ketones Negative Urine Blood Trace H Urine Nitrite Negative Ur Leukocyte Esterase Large (3+) H Urine RBC 3-5 H Urine WBC >50 H Ur Squamous Epith Cells 11-20 Urine Bacteria 1+ Hyaline Casts 0-2 Influenza Type A (PCR) NEGATIVE Influenza Type B (PCR) NEGATIVE RSV RNA Qual (PCR) NEGATIVE SARS-CoV-2 RNA (RT-PCR) NEGATIVE Assessment and Plan (1) UTI (urinary tract infection): Status: Acute Plan This is a 64-year-old female with pertinent history of HIV on HAART, gastroesophageal reflux disease, mixed hyperlipidemia, mood disorder, asthma/copd not on home oxygen, fibromyalgia, interstitial lung disease who presents to the emergency department for evaluation of urinary hesitancy and back pain. #. Acute UTI: Will admit patient with IV meropenem due to history of ESBL E coli. Follow urine culture. #. Right lower extremity pain: Right knee x-ray and venous duplex pending #. HIV: On Genvoya #. Gastroesophageal reflux disease: On PPI #. Mixed hyperlipidemia: On statin #. Mood disorder: Continue home mood stabilizers #. Asthma/COPD: Not on home oxygen. No exacerbation during admission. Continue home inhaler Med rec pending DVT prophylaxis: Lovenox Full code Admit as inpatient and will require two night minimum hospital stay for IV antibiotics (as above), which is not possible in a lesser acute setting. Quality Stroke Does the patient have a stroke diagnosis?: No VTE Prior VTE?: No VTE Risk Level:: Medical - moderate - high VTE Device Contraindication: Treatment Not Indicated VTE Drug Contraindication: N/A - Med Ordered
--- NOTE | 2024-04-19 22:52 | PC.NURSE ---
bedside ultra sound completed, xray. completed.
[2024-04-19] MEDS: Enoxaparin Sodium 40 MG/0.4 ML SYRINGE SUBCUT (23:02)
--- NOTE | 2024-04-19 23:06 | PC.NURSE ---
medicated per mar.
[2024-04-19] MEDS: Morphine Sulfate Immed Release 15 MG TABLET PO (23:50)
[2024-04-20 00:04] VITALS: BP 107/38; PULSE 73; RESP 20; TEMP 36.8; O2SAT 98
[2024-04-20 03:05] VITALS: BMI 35.0
[2024-04-20 03:09] VITALS: BP 159/71; PULSE 72; RESP 18; TEMP 36.7; O2SAT 99
[2024-04-20 05:58] LABS: MANUAL DIFF FLAG NO
[2024-04-20 06:15] LABS: Basophils Percent Auto 0.3 % (0-2); Eosinophils Absolute Auto 0.2 X10*3/uL (0.0-0.4); Eosinophils Percent Auto 6.1 % (0-4); Hematocrit 34.2 % (37.0-47.0); Hemoglobin 10.9 g/dl (12.0-16.0); Imm Gran Abs Auto 0.02 X10*3/uL (0.00-0.03); Imm Gran Pct Auto 0.5 % (0.0-0.4); Lymphocytes Absolute Auto 1.4 X10*3/uL (1.2-4.9); Lymphocytes Percent Auto 35.2 % (20-40); Mean Corpuscular HGB Conc 31.9 g/dl (31.0-35.0); Mean Corpuscular Hemoglobin 28.8 pg (27.0-33.0); Mean Corpuscular Volume 90.5 fL (80.0-98.0); Mean Platelet Volume 10.9 fL (9.4-12.3); Monocytes Absolute Auto 0.3 X10*3/uL (0.1-1.2); Monocytes Percent Auto 7.4 % (2-11); Neutrophils Percent Auto 50.5 % (45-73); Platelet Count 200 X10*3/uL (160-400); Red Blood Count 3.78 X10*6/uL (4.20-5.50); Red Cell Distribution Width 12.6 % (11.0-16.0); White Blood Count 3.9 X10*3/uL (4.8-10.8)
[2024-04-20 06:21] LABS: Anion Gap 10 (12-20); Blood Urea Nitrogen 21 mg/dL (9-16); Calcium 8.6 mg/dL (8.4-10.2); Carbon Dioxide 28 mmol/L (22-29); Chloride 108 mmol/L (96-108); Creatinine Clr Calc Pharmacy 62.4; Estimated Glomerular Filt Rate 57; Glucose Random 100 mg/dL (60-115); Potassium 3.8 mmol/L (3.3-5.1); Sodium 142 mmol/L (135-145)
[2024-04-20 07:16] VITALS: BP 113/57; PULSE 55; RESP 16; TEMP 36.9; O2SAT 94
[2024-04-20] MEDS: Meropenem 1 GM VIAL IVPUSH ×2 (07:25→17:05)
[2024-04-20] MEDS: 0.9 % Sodium Chloride Flush 3 ML SYRINGE IVFLUSH ×3 (07:25→21:59)
[2024-04-20] MEDS: Morphine Sulfate Immed Release 15 MG TABLET PO ×2 (07:34→13:52)
--- NOTE | 2024-04-20 09:49 | PHA.MEDREC ---
Pharmacy Consult ? Medication Reconciliation Pharmacy has completed the medication reconciliation. Spoke with patient at bedside with national service officer services. She was able to confirm her medications with some prompting.
--- NOTE | 2024-04-20 12:57 | P.PNIM_ITS ---
Subjective Subjective Date of Service: 04/20/24 Interval History: Seen and examined this morning follow up for knee pain, UTI History obtained with the assistance of a supervisor speech Denies fever, chills, abdominal pain, nausea, vomiting Review of Systems Review of Systems: Yes all other systems are reviewed and are negative Constitutional Constitutional: Denies chills and Denies fever(s) Cardiovascular Cardiovascular: Denies chest pain Gastrointestinal Gastrointestinal: Denies abdominal pain, Denies nausea and Denies vomiting Physical Exam 2 Vital Signs: Vital Signs: Last Vital Signs Temp 98.4 F 04/20/24 07:16 Pulse 55 04/20/24 07:16 Resp 16 04/20/24 07:16 BP 113/57 L 04/20/24 07:16 Pulse Ox 94 04/20/24 07:16 O2 Del Method Room Air 04/20/24 07:16 BMI result Body Mass Index 35.0 Const: General: cooperative, comfortable and alert Nutritional Appearance: overweight Orientation/consciousness: patient oriented x3 Resp: Effort & Inspection: normal respiratory effort, able to speak in complete sentences, no respiratory distress and no use of accessory muscles Cardio: Rate: regular rate GI: Inspection: No distended Palpation (GI): Soft to palpation and nontender Neuro: General: patient oriented x3, moves all extremities and CN's II-XI intact bilaterally Extrem: Other: rle knee with small effusion; no erythema or warmth Objective Data Active Medications Acetaminophen (Acetaminophen 325 Mg Tablet) 650 mg PO Q6H PRN PRN Reason: Pain, Mild 1-3,fever,headache Calcium Carbonate (Calcium Carbonate 750 Mg Tab.Chew) 750 mg PO Q4H PRN PRN Reason: Heartburn Enoxaparin Sodium (Enoxaparin Sodium 40 Mg/0.4 Ml Syringe) 40 mg SUBCUT Q24H [facility] Last Admin: 04/19/24 23:02 Dose: 40 mg Documented By: AMY Magnesium Hydroxide (Milk Of Magnesia 30 Ml Oral.Susp) 30 ml PO DAILY PRN PRN Reason: Constipation Melatonin (Melatonin 3 Mg Tablet) 6 mg PO BEDTIME PRN PRN Reason: Insomnia Meropenem (Meropenem 1 Gm Vial) 1 gm IVPUSH Q8H [facility] Last Admin: 04/20/24 07:25 Dose: 1 gm Documented By: DENYS Morphine Sulfate (Morphine Sulfate Immed Release 15 Mg Tablet) 15 mg PO Q6H PRN PRN Reason: Pain, Severe (Pain Scale 7-10) Last Admin: 04/20/24 07:34 Dose: 15 mg Documented By: DENYS Ondansetron HCl (Ondansetron Hcl 4 Mg/2 Ml Vial) 4 mg IVPUSH Q8H PRN PRN Reason: Nausea and Vomiting Sodium Chloride (0.9 % Sodium Chloride Flush 3 Ml Syringe) 3 ml IVFLUSH QSHIFT [facility] Last Admin: 04/20/24 07:25 Dose: 3 ml Documented By: DENYS Labs 04/20/24 05:38 04/20/24 05:38 Labs: Laboratory Results - last 24 hr 04/19/24 04/19/24 04/20/24 17:37 20:25 05:38 MCV 89.7 90.5 MCH 29.5 28.8 MCHC 32.9 31.9 RDW 12.7 12.6 Plt Count 218 200 MPV 10.4 10.9 Immature Gran % (Auto) 0.2 0.5 H Neut % (Auto) 58.2 50.5 Lymph % (Auto) 31.5 35.2 Emanuel % (Auto) 6.3 7.4 Eos % (Auto) 3.6 6.1 H Baso % (Auto) 0.2 0.3 Lymph # (Auto) 1.6 1.4 Emanuel # (Auto) 0.3 0.3 Eos # (Auto) 0.2 0.2 Baso # (Auto) 0.0 0.0 Abs Immat Gran (auto) 0.01 0.02 Absolute Neuts (auto) 2.9 2.0 Absolute Nucleated RBC 0.000 0.000 Nucleated RBC % (auto) 0.0 0.0 PT 12.0 INR 1.0 Anion Gap 10 L 10 L Estim Creat Clear Calc 71.2 62.4 Estimated GFR > 60 57 Random Glucose 118 H 100 Lactic Acid 1.5 Calcium 9.2 8.6 D Total Bilirubin 0.3 AST 22 ALT 16 Alkaline Phosphatase 67 Total Protein 7.9 Albumin 4.1 Urine Color Yellow Urine Appearance Cloudy Urine pH 6.0 Ur Specific [place] 1.015 Urine Protein Trace Urine Glucose (UA) Negative Urine Ketones Negative Urine Blood Trace H Urine Nitrite Negative Ur Leukocyte Esterase Large (3+) H Urine RBC 3-5 H Urine WBC >50 H Ur Squamous Epith Cells 11-20 Urine Bacteria 1+ Hyaline Casts 0-2 Influenza Type A (PCR) NEGATIVE Influenza Type B (PCR) NEGATIVE RSV RNA Qual (PCR) NEGATIVE SARS-CoV-2 RNA (RT-PCR) NEGATIVE Microbiology Microbiology Results: Microbiology 04/19/24 20:44 Urine Culture - Preliminary Urine clean catch - Clean Catch Midstream Culture too young to evaluate. Assessment and Plan (1) Infection due to ESBL-producing Escherichia coli: Status: Acute Plan This is a 64-year-old female with pertinent history of HIV on HAART, gastroesophageal reflux disease, mixed hyperlipidemia, mood disorder, asthma/copd not on home oxygen, fibromyalgia, interstitial lung disease who was seen in the ED on 04/05 for flank plain was diagnosed with UTI and sent home with macrobid. her cultures returned growing ESBl and she was called on 04/12 to return to the ED; she returned 04/19 for IV antibiotics. Acute UTI: IV meropenem due to history of ESBL E coli growing from 04/05 repeat cultures obtained, Follow results ID consult pending blood cultures pending Right lower extremity pain: dvt study negative for clot knee x-ray with small right effusion - wrap in boby wrap outpatient ortho follow up does not appear infected HIV: Continue formulary equivalent for Genvoya Gastroesophageal reflux disease: On PPI Mixed hyperlipidemia: On statin Asthma/COPD: Not on home oxygen. No exacerbation during admission. Continue baseline inhaler DVT prophylaxis: Lovenox Full code Admit as inpatient and will require two night minimum hospital stay for IV antibiotics (as above), which is not possible in a lesser acute setting. Quality Stroke Does the patient have a stroke diagnosis?: No VTE Prior VTE?: No VTE Risk Level:: Medical - moderate - high VTE Device Contraindication: Treatment Not Indicated VTE Drug Contraindication: N/A - Med Ordered
[2024-04-20] MEDS: Dicyclomine HCl 10 MG CAPSULE 20 MG PO ×2 (14:35→21:54)
[2024-04-20] MEDS: Elviteg/Cobi/Emtric/Tenofo Ala 150/150/200/10 TABLET 1 TAB PO (14:36)
--- NOTE | 2024-04-20 14:46 | MHC.CM.PN ---
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 PT REPORTS SHE WAS LIVING ALONE, BUT HER SON RECENTLY MOVED IN TO HELP HER SHE SAYS SHE HAS BEEN TRYING TO GET [facility]ACTITIONER SERVICES AGAIN, HOWEVER HAS BEEN TURNED DOWN BY [facility] INFORMATION FOR CAREFORTH PROVIDED, PT CURRENTLY WORKING WITH ANOTHER AGENCY, BUT WILL FOLLOW UP IF DENIED PT STATES SHE HAS BEEN WAITING ON A CANE AND WALKER FROM HER INSURANCE COMPANY, BUT HAS NOT GOTTEN ANYTHING YET SHE SAYS SHE WAS USING A KITCHEN CHAIR IN THE SHOWER BEFORE HER SON WAS THERE TO ASSIST HCP ON FILE PCP: RACHELLE JUARES DCP: HOME, NO SERVICES PT ALSO REQUESTING A WALKER RX FRIEND TO TRANSPORT
[2024-04-20 15:24] VITALS: BP 117/58; PULSE 65; RESP 18; TEMP 36.6; O2SAT 95
[2024-04-20] MEDS: Simethicone 80 MG TAB.CHEW 160 MG PO ×2 (17:05→21:54)
[2024-04-20 19:23] VITALS: BP 110/57; PULSE 56; RESP 18; TEMP 36.3; O2SAT 97
[2024-04-20] MEDS: Atorvastatin Calcium 80 MG TABLET PO (21:53)
[2024-04-20] MEDS: bisacodyL 5 MG TABLET.DR 10 MG PO (21:54)
[2024-04-20] MEDS: Enoxaparin Sodium 40 MG/0.4 ML SYRINGE SUBCUT (21:54)
[2024-04-21] MEDS: Morphine Sulfate Immed Release 15 MG TABLET PO ×2 (00:02→08:47)
[2024-04-21] MEDS: Meropenem 1 GM VIAL IVPUSH ×2 (00:03→08:47)
[2024-04-21 01:05] VITALS: RESP 18
[2024-04-21 04:00] VITALS: BP 121/65; PULSE 52; RESP 16; TEMP 36.7; O2SAT 97
[2024-04-21] MEDS: Omeprazole 20 MG CAPSULE.DR PO (05:51)
[2024-04-21 07:41] VITALS: BP 151/68; PULSE 58; RESP 18; TEMP 36.1; O2SAT 96
[2024-04-21] MEDS: Fluticasone/Vilanterol 200/25 BLST.W.DEV 1 PUFF INHALE (08:28)
[2024-04-21] MEDS: Tiotropium Bromide 2.5 mcg 1 PUFF/2.5 MCG MIST.INHAL 2 PUFF INHALE (08:28)
[2024-04-21 08:31] VITALS: PULSE 72; RESP 14; O2SAT 96
[2024-04-21] MEDS: Ketotifen Fumarate 0.025% Oph 5 ML DRPBTL 2 DROP EYE-BOTH (08:48)
[2024-04-21] MEDS: Simethicone 80 MG TAB.CHEW 160 MG PO ×2 (08:48→12:21)
[2024-04-21] MEDS: 0.9 % Sodium Chloride Flush 3 ML SYRINGE IVFLUSH (08:49)
[2024-04-21] MEDS: Elviteg/Cobi/Emtric/Tenofo Ala 150/150/200/10 TABLET 1 TAB PO (08:49)
[2024-04-21] MEDS: LINACLOTIDE 145 MCG 145 EACH PO (08:49)
[2024-04-21] MEDS: Dicyclomine HCl 10 MG CAPSULE 20 MG PO (08:49)
[2024-04-21] MEDS: Loratadine 10 MG TABLET PO (08:49)
[2024-04-21] MEDS: Furosemide 20 MG TABLET PO (08:49)
--- NOTE | 2024-04-21 12:19 | PM.DS ---
DS: Providers Provider Date of Service: 04/21/24 Date of admission: 04/19/24 22:11 Date of discharge: 04/21/24 Primary care physician: Vreonica Rebolledo MD Consults: 04/19/24 20:08 Consult to Infectious Diseases Routine Consulting Provider: [facility] Reason for consultation: need for ertapeneem, ESBL + UTI Has provider been notified: Yes Attending physician on discharge: Juan Pablo Russell Discharging clinician: Angelika Vasques DS: Diagnosis Discharge Diagnosis (1) Infection due to ESBL-producing Escherichia coli: Status: Acute DS: Summary Hospital Course Hospital Course: From H&P on the day of admission This is a 64-year-old female with pertinent history of HIV on HAART, gastroesophageal reflux disease, mixed hyperlipidemia, mood disorder, asthma/copd not on home oxygen, fibromyalgia, interstitial lung disease who presents to the emergency department for evaluation of urinary hesitancy and back pain. Patient is Emirati speaking and history obtained with the help of manager critical care. Patient states she has been having urinary hesitancy and urgency that has been ongoing for the last few days. Also noticed change in color of urine. Patient states she was recently treated for UTI with oral antibiotics and completed her antibiotic course 2 days ago. Outpatient urine culture reveals ESBL E coli. Patient is compliant with her anti-retroviral therapy for HIV, her last CD4 count was 351 and viral load undetectable. Denies nausea, vomiting, fever, chills, chest pain, palpitations, shortness of breath, changes in bowel habits. Endorses right leg pain that has been ongoing for a month In the emergency department, urine concerning for UTI. Imaging with cystitis Acute UTI: Urine culture from 04/05 growing ESBL E coli. she was called on 04/12 and asked to return to the hospital. she returned on 04/19 and urine culture was repeated. She was admitted and started on IV meropenem. Her repeat urine culture was 10,000-50,000 mixed bacterial amado characteristic of urogenital contamination. Discussed with ID who recommended 1 time dose of oral fosfomycin. Right lower extremity pain. has been ongoing for a month. dvt study negative for clot. knee x-ray with small right effusion - wrap in brooke wrap outpatient ortho follow up. does not appear infected Time Attestation Discharge Coordination Time (in mins): 36 Quality: Safe Use of Opioids Does Pt have an Active Cancer Diagnosis on the Problem List?: No Quality: Stroke Does the patient have a stroke diagnosis?: No Physical Exam Vital Signs: Vital Signs: Last Vital Signs Temp 96.9 F 04/21/24 07:41 Pulse 72 04/21/24 08:31 Resp 14 04/21/24 08:31 BP 151/68 H 04/21/24 07:41 Pulse Ox 96 04/21/24 07:41 O2 Del Method Room Air 04/21/24 07:41 BMI result Body Mass Index 35.0 Const: General: cooperative, comfortable and alert Nutritional Appearance: overweight Orientation/consciousness: patient oriented x3 Resp: Effort & Inspection: normal respiratory effort, able to speak in complete sentences, no respiratory distress and no use of accessory muscles Cardio: Rate: regular rate GI: Inspection: No distended Palpation (GI): Soft to palpation and nontender Neuro: General: patient oriented x3, moves all extremities and CN's II-XI intact bilaterally Extrem: Other: rle knee with small effusion; no erythema or warmth DS: Data Data Completed and Pending Labs on day of discharge: Preliminary micro results at discharge 04/19/24 20:25 Blood Culture - Preliminary Blood - Venous No growth after 24 hours. 04/19/24 20:24 Blood Culture - Preliminary Blood - Venous No growth after 24 hours. Discharge Plan Discharge Anticipated Discharge Date/Time: 04/21/24 12:23 Patient Disposition: Home, Self-Care Discharge Diagnosis: UTI knee swelling Referrals: Veronica Rebolledo MD [Primary Care Provider] - 1 Week Rick Burch PA-C [Physician Mechanism Assembler] - 1 Week Discharge Medications: New fosfomycin tromethamine 3 gram packet 1 packet PO Q OTHER DAY Qty: 1 0RF Continued hydrocortisone [Cortisone (hydrocortisone)] 1 % cream 1 appl topical BID PRN (Reason: itching) Qty: 28.35 0RF Genvoya [phone] mg tablet 1 tab PO DAILY Rx Instructions: with breakfast guaifenesin [Mucinex] 600 mg tablet extended release 12hr 600 mg PO Q12H PRN (Reason: cough) 3 Days Qty: 6 0RF albuterol sulfate 2.5 mg /3 mL (0.083 %) Solution For Nebulization 2.5 mg INHALATION Q4-6H PRN (Reason: Shortness Of Breath) Qty: 75 0RF meloxicam 15 mg tablet 15 mg PO DAILY Qty: 30 0RF sertraline 100 mg tablet 100 mg PO DAILY PRN (Reason: mood) Qty: 30 0RF meclizine 12.5 mg tablet 12.5 mg PO TID PRN (Reason: Vertigo) Qty: 12 0RF dicyclomine 20 mg tablet 20 mg PO TID Qty: 90 0RF furosemide 20 mg tablet 20 mg PO DAILY 30 Days Qty: 30 6RF zolpidem 10 mg tablet 10 mg PO BEDTIME Qty: 30 0RF loratadine 10 mg Tablet 10 mg PO DAILY Qty: 30 0RF naproxen 500 mg tablet 500 mg PO BID PRN (Reason: pain) 7 Days Qty: 14 0RF losartan 100 mg tablet 100 mg PO DAILY triamcinolone acetonide 0.5 % cream 1 appl topical BID ondansetron 4 mg tablet,disintegrating 4 mg PO Q6H PRN (Reason: nausea and vomiting) Linzess 145 mcg capsule 145 mcg PO DAILY pyridoxine (vitamin B6) 100 mg tablet 100 mg PO DAILY 90 Days Qty: 90 3RF Incruse Ellipta 62.5 mcg/actuation blister with device 1 inh inhalation DAILY Qty: 1 6RF fluticasone furoate-vilanterol [Breo Ellipta] 200-25 mcg/dose blister with device 1 ea inhalation DAILY Qty: 1 6RF albuterol sulfate [Ventolin HFA] 90 mcg/actuation HFA aerosol inhaler 2 puff inhalation QID PRN (Reason: asthma) rosuvastatin 40 mg tablet 40 mg PO BEDTIME ketotifen fumarate 0.025 % (0.035 %) drops 2 drp ophthalmic (eye) DAILY omeprazole 20 mg capsule,delayed release(DR/EC) 20 mg PO DAILY Qty: 30 6RF simethicone 180 mg capsule 180 mg PO QID 30 Days Qty: 120 6RF Rx Instructions: after meals peg 3350-electrolytes [Golytely] 236-22.74-6.74 -5.86 gram recon soln 240 ml PO Q10M 1 Days Qty: 4000 0RF Rx Instructions: until fecal effluent is clear; do not exceed a total volume of 2,000 mL bisacodyl [Dulcolax (bisacodyl)] 5 mg tablet,delayed release (DR/EC) 10 mg PO BEDTIME 2 Days Qty: 4 0RF Discharge Orders: Discharge Order (Routine); Ordered 04/21/24 Ordered By: Angelika Vasques Activity on Discharge: As tolerated Stand Alone Forms: Patient Portal Discharge page Print Language: Emirati Care Plan Goals: see below Health Concerns: UTI right knee pain Plan of Treatment: for UTI - take one dose of oral fosfomycin as prescribed for right knee - there is no blood clot. recommend follow up with orthopedics as outpatient. can keep leg elevated, use ice and wrap with BROOKE wrap for comfort. Assessment: see discharge summary
--- NOTE | 2024-04-21 12:52 | MHC.CM.PN ---
pt dcd home self are
== END 2024-04-21 14:12 | disposition home or self-care (01) | DRG 463 ==
LOC: HO.ED 21:33 → HO.EDOVER 22:22 → HO.S3 23:54
PROVIDERS: Physician Assistant Medical; Admitting Provider Student in an Organized Health Care Education/Training Program; Emergency Provider Emergency Medicine; PCP Internal Medicine; Visit Provider Physician Assistant Medical
DX: N39.0 Urinary tract infection, site not specified (principal); B96.20 Unspecified Escherichia coli [E. coli] as the cause of diseases classified elsewhere; E78.2 Mixed hyperlipidemia; Z21 Asymptomatic human immunodeficiency virus [HIV] infection status; K21.9 Gastro-esophageal reflux disease without esophagitis; Z16.12 Extended spectrum beta lactamase (ESBL) resistance; J44.9 Chronic obstructive pulmonary disease, unspecified; M25.461 Effusion, right knee; Z20.822 Contact with and (suspected) exposure to COVID-19; Z87.440 Personal history of urinary (tract) infections; Z79.51 Long term (current) use of inhaled steroids; Z87.891 Personal history of nicotine dependence; Z79.899 Other long term (current) drug therapy
CPT/HCPCS: 0241U; 36415; 73560; 74176; 80048; 80053; 81001; 83605; 85025; 85610; 87040; 87086; 93971; 94640; 99285; J1335; J1650; J1885; J2185

== ENCOUNTER → 2024-04-19 20:01 | Outpatient (BNV) | payer MEDICAID, SELFPAY | PROVIDERS: Emergency Provider Emergency Medicine; PCP Internal Medicine; Visit Provider Radiology Diagnostic Radiology | DX: R22.41 Localized swelling, mass and lump, right lower limb (principal); M25.561 Pain in right knee | CPT/HCPCS: 73560; 74176; 93971 ==

== ENCOUNTER → 2024-04-19 22:11 | Outpatient (BNV) | payer MEDICAID, SELFPAY | PROVIDERS: Admitting Provider Student in an Organized Health Care Education/Training Program; Emergency Provider Emergency Medicine; PCP Internal Medicine; Visit Provider Student in an Organized Health Care Education/Training Program | DX: A49.8 Other bacterial infections of unspecified site (principal); Z16.12 Extended spectrum beta lactamase (ESBL) resistance | CPT/HCPCS: 99222; 99232; 99239 ==

== ENCOUNTER 2024-04-28 09:30 | Outpatient (REF) | payer MEDICAID, SELFPAY ==
[2024-04-28 16:30] LABS: Urine Cytology See Pathology rpt
[2024-04-28 16:39] LABS: CT PCR NOT DETECTED (Not Detect.); NG PCR NOT DETECTED (Not Detect.)
== END 2024-04-28 09:31 | disposition home or self-care (01) ==
LOC: HO.LAB 09:30
PROVIDERS: Obstetrics & Gynecology; PCP Internal Medicine; Visit Provider Urology
DX: R10.2 Pelvic and perineal pain (principal); R31.29 Other microscopic hematuria; R87.612 Low grade squamous intraepithelial lesion on cytologic smear of cervix (LGSIL); N39.0 Urinary tract infection, site not specified; N20.0 Calculus of kidney
CPT/HCPCS: 81003; 87491; 87591; 88112; 99212

== ENCOUNTER 2024-04-28 09:30 | Outpatient (AMB) | payer MEDICAID, SELFPAY ==
--- OUTSIDE RECORDS SUMMARY | 2024-04-28 09:33 | XMS_ITS | Patient Health Record ---
Author Organization Alec Strickland III, MD Address [address] [place] [address] Care Team Providers Care Superintendent Pier Name Role Phone Kesha PRECIADO, [facility] Primary Care Provider Alec Beckwith Unavailable [phone] Allergies Allergen (clinical drug ingredient) Drug/Non Drug [...] Problem Status W/U Status Risk Notes Problem 6304920 Former smoker (Z87.891) Active confirmed She has a plan for prevention of relapse in times of stress. I have counseled her about ongoing smoking cessation. Problem 37220605 Hyperlipidemia (E78.5) Active confirmed A fasting lipid profile is not available and has been requested from primary care. Problem 490721517 Asthma (J45.909) Active confirmed It is pollen season and she has occasional wheezing. This is controlled with her medications. Problem 71036965 Hepatitis C (B19.20) Active confirmed There is no sig n at this time of ongoing active infection. Problem 162257801 Anemia (D64.9) Active confirmed Her hematocrit is 34% with a normal mean cell volume. This is likely the anemia of chronic disease and will be observed. Problem 649063749 Thrombocytopenia (D69.6) Active confirmed Her platelet count is now normal at 174,000. The value will be observed. Problem 99466769 Human immunodeficiency virus [HIV] disease (B20) Active confirmed She has not developed any recent infections or HIV related neoplasms. She is compliant with the recommendations of infectious disease. The viral load is well controlled. Problem 592469556 Lobular carcinom a in situ of right breast (D05.01) Active confirmed There is no sign of recurrent disease. She is due for mammography and a study has been ordered. 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 It was thought to be reactive. Problem 56129077 Essential hypertension (I10) Active confirmed Her blood pressure has been normal. She was referred back to primary care for measurement. Problem 67436977 Depressive disorder, not elsewhere classified (F32.9) Active confirmed Her depre ssion is stable and well controlled and she is compliant with her medication. Problem 289677253 Obesity (BMI 35.0-39.9 without comorbidity) (E66.01) Active confirmed Her body mass index is 29 and I have recommended regular exercise and weight reduction through a diet restricted in calories fat in sodium. She has lost six pounds since her last visit. Problem 63723283 Sleep apnea (G47.30) Active confirmed She has been treated for this and denies any daytime somnolence. No additional therapy is necessary. She says she has been compliant with treatment Problem 683697563 H/O carpal tunne l syndrome (Z86.69) Active confirmed She has mi ld symptoms of neuropathy in her hands but these are mild and she is conducting all the activities of daily life without impairment. Problem 391352212 Chronic kidney disease, stage I (N18.1) Active confirmed Her most recent available renal functions are normal. These will be followed carefully. On June 08, 2021. The BUN was 18, creatinine was normal. Problem 26718385 Hepatitis B (B19.10) Active confirmed There is [...] Date MEDICAID [address] JEANETTE DESIR [id number] America Bower Self - patient is the [...]
--- NOTE | 2024-04-28 09:36 | MHC.OFFVIS ---
Intake Visit Reasons: 4m/recurrent UTIs Intake Note: Patient is present for 4M/RECURRENT UTI'S Urology Medication:VITAMIN B6 Antibiotic Allergy:NONE Blood Thinner:NONE [employer] Reading Teacher Required: No Allergies shellfish derived Allergy (Intermediate, Verified 04/28/24 09:37) HIVES, N/V HPI Comments Details: 04/28--25 Recurrent utis plan cysto suppress 12/28/23--s/p left ESWL on 10/20/23, reviewed FU renal US and KUB, left renal calculi, demonstrated with reduced stone burden, right renal calculi noted that was not seen on previous CTAP in July,, this year and I question accuracy. The patient complains of burning with urination. UA is nitrite positive. Will empirically prescribe Macrobid. FU in 4months, monitor UA, renal US in one year. Review of chart: --America is a 63-year-old female is being followed for nephrolithiasis, recurrent UTI's, pelvic pain. Reviewed CT KUB --07/28/23--right kidney is unremarkable. several nonobstructing left renal calculi. There are at least 5 calculi, ranging in size from 3 mm to 5 mm in the mid to lower pole. No left hydronephrosis or hydroureter. Discussed Left ESWL. Discussed risks to include but not limited to, blood in the urine, bruising to the skin, kidney hematoma, possible need for another procedure if a stone fragment obstructs the ureter while passing, possible need to repeat procedure if stone is not completely fragmented. Certified aviation safety equipment technician present. 06/14/23--Citizen Of [place]-speaking female, certified aviation safety equipment technician present, the patient was placed on suppressive nitrofurantoin 50 mg daily for chronic cystitis. She states that painful urination has improved. She has a history of bilateral kidney stones she denies gross blood in the urine. Urinalysis today -- leukocytes 1+, blood 1+. Macrobid 50 mg daily suppressive Abx therapy. Surveillance urine culture. Monitor kidney stones renal ultrasound and KUB follow-up in 3 months 04/15/23-- she is s/p outpatient cystoscopy - findings c/w cystitis follicularis. The patient was started on Macrobid. urine c/s sent reviewed. Certified aviation safety equipment technician was present during the visit. The patient states bladder pain is improving. I have discussed continue macrobid antibiotic suppressive therapy. Her past medical history includes nicotine dependency, fibromyalgia, approximate 30 pack year smoker with underlying history of HIV on antivirals under the care of [facility], Breast cancer s/p lumpectomy in 2013 and multiple occurrences of hospitalizations for pneumonia, who is followed by Pulmonary. CAT scan done on 09/18/22 noting bilateral kidney stones.?--done without IV contrast -- Multiple 1 mm right kidney stones and multiple left kidney stones, the largest measuring 6 mm.? 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 HIV (human immunodeficiency virus infection) History of blood transfusion Anemia Hx of renal calculi Difficulty swallowing GERD (gastroesophageal reflux disease) Hepatitis Depression Sleep apnea Asthma Elevated cholesterol HTN (hypertension) Surgical History Hx of colonoscopy Hx of cystoscopy Hx of dilation and curettage Hx of section Hx of reduction mammoplasty Hx of tubal ligation Hx of cholecystectomy Family History Mother Breast cancer Father Heart problem Sister Bone cancer Family/Other Diabetes Social History Household Members: Family Housing: Apartment Do you presently have visiting nurse or other home services: No Alcohol intake: current Alcohol intake frequency: holidays/special occasions only Alcohol type: wine Patient Tobacco Use Status: Former Tobacco user Tobacco use type: Cigarette Cigarette Packs Per Day: 2 Cigarettes Per Day: 40.0 Years Smoked: 40 e-Cigarette/Vaping Use: Never Used Second Hand Smoke Exposure: No Substance Use Type: Former Substance User service: No Sexual orientation: Straight/Heterosexual Gender identity: Female Female Reproductive History Menstrual Age of Menarche: 12 Results AMB Urinalysis, Automated UA Leukoctes 500 Og/uL Last Edit by SEGUN Espinal on 04/28/24 09:52 UA Nitrite Positive Last Edit by SEGUN Espinal on 04/28/24 09:52 UA Urobilinogen 0.2 mg/dL Last Edit by SEGUN Espinal on 04/28/24 09:52 UA Protein 30 mg/dL Last Edit by SEGUN Espinal on 04/28/24 09:52 UA pH 6.0 Last Edit by SEGUN Espinal on 04/28/24 09:52 UA Blood 200 [place]/uL Last Edit by SEGUN Espinal on 04/28/24 09:52 UA Specific [place] 1.020 Last Edit by SEGUN Espinal on 04/28/24 09:52 UA Ketone Negative Last Edit by SEGUN Espinal on 04/28/24 09:52 UA Bilirubin 0 mg/dL Last Edit by SEGUN Espinal on 04/28/24 09:52 UA Glucose 0 mg/dL Last Edit by SEGUN Espinal on 04/28/24 09:52 Results Reviewed Results Reviewed: Laboratory Last Values Urine pH (Auto) 6.0 04/28/24 09:51 Specific [place] (Auto) 1.020 04/28/24 09:51 Urine Protein (Auto) 30 mg/dL 04/28/24 09:51 Glucose (UA)(Auto) 0 mg/dL 04/28/24 09:51 Urine Ketones (Auto) Negative 04/28/24 09:51 Urine Blood (Auto) 200 [place]/uL 04/28/24 09:51 Urine Nitrite (Auto) Positive 04/28/24 09:51 Urine Bilirubin (Auto) 0 mg/dL 04/28/24 09:51 Urine Urobilinogen (Auto) 0.2 mg/dL 04/28/24 09:51 Leukocyte Esterase (Auto) 500 Og/uL 04/28/24 09:51 Assessment & Plan Assessment & Plan Orders: Orders AMB Urinalysis Automated Today Z13.9 - Encounter for screening, unspecified Coding
== END 2024-04-28 10:34 | disposition home or self-care (01) ==
PROVIDERS: PCP Internal Medicine; Visit Provider Urology
DX: Z13.9 Encounter for screening, unspecified (principal)

== ENCOUNTER 2024-04-28 10:23 | Outpatient (AMB) | payer MEDICAID, SELFPAY ==
--- NOTE | 2024-04-28 11:03 | A.OFFVIS_ITS ---
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 It's intermittent in nature lasting few seconds and occurs 3x/day. it is not associated with any constipation, no urinary dysuria or frequency, no incontinence, no n/v, no feverishness 05/13 CT scan showed the following: IMPRESSION: 1. Bladder wall thickening. This may be related to bladder underdistention or cystitis. Recommend clinical correlation with urinalysis results for further evaluation. No other CT evidence for an acute inflammatory process identified within the abdomen or pelvis. 2. Nonobstructing left renal calculi present. No hydronephrosis or hydroureter. 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 HIV (human immunodeficiency virus infection) History of blood transfusion Anemia Hx of renal calculi Difficulty swallowing GERD (gastroesophageal reflux disease) Hepatitis Depression Sleep apnea Asthma Elevated cholesterol HTN (hypertension) Surgical History Hx of colonoscopy Hx of cystoscopy Hx of dilation and curettage Hx of section Hx of reduction mammoplasty Hx of tubal ligation Hx of cholecystectomy Family History Mother Breast cancer Father Heart problem Sister Bone cancer Family/Other Diabetes Social History Household Members: Family Housing: Apartment Do you presently have visiting nurse or other home services: No Alcohol intake: current Alcohol intake frequency: holidays/special occasions only Alcohol type: wine Patient Tobacco Use Status: Former Tobacco user Tobacco use type: Cigarette Cigarette Packs Per Day: 2 Cigarettes Per Day: 40.0 Years Smoked: 40 e-Cigarette/Vaping Use: Never Used Second Hand Smoke Exposure: No Substance Use Type: Former Substance User service: No Sexual orientation: Straight/Heterosexual Gender identity: Female Female Reproductive History Menstrual Age of Menarche: 12 Review of Systems Const All systems reviewed & are unremarkable except as noted in HPI and below Physical Exam General: Yes no CVA tenderness External Female Exam: normal external appearance and normal appearance of the urethra Speculum Exam - Vagina: normal appearance of the vagina, normal palpation, no lesions and no masses Speculum Exam - Cervix: normal appearance of the cervix, normal palpation, no lesions, no masses and nontender Bimanual exam- vagina & uterus: normal bimanual exam, normal palpation, uterine size normal, normal palpation, uterine shape normal, No Cervical tenderness present and non-tender Bimanual Exam- Adnexa, other: normal adnexae Back/Spine/Pelvis Back: no CVA tenderness Results AMB Urinalysis, Automated UA Leukoctes 500 Og/uL Last Edit by SEGUN Espinal on 04/28/24 09:52 UA Nitrite Positive Last Edit by SEGUN Espinal on 04/28/24 09:52 UA Urobilinogen 0.2 mg/dL Last Edit by SEGUN Espinal on 04/28/24 09:5 2 UA Protein 30 mg/dL Last Edit by SEGUN Espinal on 04/28/24 09:52 UA pH 6.0 Last Edit by SEGUN Espinal on 04/28/24 09:52 UA Blood 200 [place]/uL Last Edit by SEGUN Espinal on 04/28/24 09:52 UA Specific [place] 1.020 Last Edit by SEGUN Espinal on 04/28/24 09: 52 UA Ketone Negative Last Edit by SEGUN Espinal on 04/28/24 09:52 UA Bilirubin 0 mg/dL Last Edit by SEGUN Espinal on 04/28/24 09:52 UA Glucose 0 mg/dL Last Edit by SEGUN Espinal on 04/28/24 09:52 Assessment & Plan Assessment & Plan (1) Pelvic pain: Code(s): R10.2 - Pelvic and perineal pain Category: Medical Plan: Urine dip done in the office was positive for microscopic hematuria. GC and chlamydia taken and pelvic ultrasound ordered. Discussed with the patient the differential diagnosis of pelvic pain including but not limited to adnexal, uterine masses, pelvic infections (PID), GI the (Irritable bowel syndrome, diverticulitis, others), causes, musculoskeletal, myofascial pain abdominal wall , adhesions, endometriosis, psychological and others causes. All questions answered, the patient verbalized understanding. Instructed the patient to schedule an ultrasound and a follow-up appointment in 2 weeks. All questions answered, the patient verbalized understanding and agreed with the plan. (2) Microscopic hematuria: Comment: Nephrolithiasis Abnormal bladder imaging by CT scan in 05/13 CT scan Code(s): R31.29 - Other microscopic hematuria Category: Medical Plan: Urine dip showed microscopic hematuria, urine culture sent. Discussed with the patient the possible causes of microscopic hematuria including but not limited to: interstitial cystitis, polyps, stones, masses, urethral inflammatory processes and others. All questions answered and the patient verbalized understanding. The patient was seen by Urology and has a follow-up appointment in few weeks (3) LGSIL on Pap smear of cervix: Code(s): R87.612 - Low grade squamous intraepithelial lesion on cytologic smear of cervix (LGSIL) Category: Medical Plan: Discussed with the patient the result of her abnormal pap, its significance, risk of progression, persistence, and regression. the false positive/negative rate of a Pap smear as a screening test in detecting cervical cancer and the indication for a diagnostic test -colposcopy, biopsy, endocervical curettage. Instructions given the patient to schedule an appointment for colposcopy/biopsy/ECC. The patient verbalized understanding and agreed with the plan, all questions answered. Orders: Referrals Urology Referral R31.29 - Other microscopic hematuria Coding Level of Care Code Est Pt Level 3 (65078) Diagnoses Pelvic pain R10.2 Microscopic hematuria R31.29 LGSIL on Pap smear of cervix R87.612
== END 2024-04-28 11:24 | disposition home or self-care (01) ==
PROVIDERS: PCP Internal Medicine; Visit Provider Obstetrics & Gynecology
DX: R10.2 Pelvic and perineal pain (principal); R31.29 Other microscopic hematuria; R87.612 Low grade squamous intraepithelial lesion on cytologic smear of cervix (LGSIL)
CPT/HCPCS: 99213

== ENCOUNTER 2024-04-28 16:20 | Outpatient (REF) | payer MEDICAID, SELFPAY | END 2024-04-28 16:21 | disposition home or self-care (01) | LOC: HO.LNP 16:20 | PROVIDERS: Visit Provider Urology | DX: Z13.89 Encounter for screening for other disorder (principal) | CPT/HCPCS: 87086 ==

== ENCOUNTER 2024-04-30 15:19 | Emergency (ER) | payer MEDICAID, SELFPAY ==
--- NOTE | 2024-04-30 16:55 | ED.FEMALEGU ---
HPI - Female Genitourinary General Chief complaint: Urogenital-Female Stated complaint: UTI?, sent here for antibiotic treatment by it applications developer Time Seen by Provider: 04/30/24 21:01 Source: patient Mode of arrival: ambulatory Limitations: no limitations History of Present Illness ED Provider: Dr. Violeta Valentine HPI Narrative: patient comes to the emergency room complaining of suprapubic pressure. Patient states that she has been having this same sensation for several months. Nothing new today. Patient states that she was sent in by her OBGYN for further evaluation and treatment. Patient denies fever or chills, denies hematuria or dysuria, denies flank pain. Patient states it is a constant pressure-like sensation in the suprapubic area. Related Data Home Medications ?Medication ?Instructions ?Recorded ?Confirmed elviteg 150 mg-cob 150 mg-emtricit 1 tab PO DAILY 07/17/23 04/20/24 200 mg-tenofo alafenam 10 mg tablet (Genvoya) albuterol sulfate 90 mcg/actuation 2 puff inhalation QID PRN asthma 11/19/23 04/20/24 aerosol inhaler (Ventolin HFA) ketotifen fumarate 0.025 % (0.035 2 drp ophthalmic (eye) DAILY 11/19/23 04/20/24 %) eye drops rosuvastatin 40 mg tablet 40 mg PO BEDTIME 11/19/23 04/20/24 losartan 100 mg tablet 100 mg PO DAILY 04/05/24 04/20/24 triamcinolone acetonide 0.5 % 1 appl topical BID 04/05/24 04/20/24 topical cream linaclotide 145 mcg capsule 145 mcg PO DAILY 04/20/24 04/20/24 (Linzess) ondansetron 4 mg disintegrating 4 mg PO Q6H PRN nausea and vomiting 04/20/24 04/20/24 tablet Previous Rx's ?Medication ?Instructions ?Recorded albuterol sulfate 2.5 mg/3 mL 2.5 mg (3 mL) inhalation Q4-6H PRN 07/19/23 (0.083 %) solution for nebulization Shortness Of Breath #75 mL dicyclomine 20 mg tablet 20 mg PO TID #90 tabs 07/19/23 furosemide 20 mg tablet 20 mg PO DAILY 30 days #30 tabs 07/19/23 guaifenesin 600 mg tablet, 600 mg PO Q12H PRN cough 3 days #6 07/19/23 extended release 12 hr (Mucinex) tabs meclizine 12.5 mg tablet 12.5 mg PO TID PRN Vertigo #12 tabs 07/19/23 meloxicam 15 mg tablet 15 mg PO DAILY #30 tabs 07/19/23 sertraline 100 mg tablet 100 mg PO DAILY PRN mood #30 tabs 07/19/23 zolpidem 10 mg tablet 10 mg PO BEDTIME #30 tabs 07/19/23 loratadine 10 mg tablet 10 mg PO DAILY #30 tabs 07/20/23 naproxen 500 mg tablet 500 mg PO BID PRN pain 7 days #14 07/28/23 tabs bisacodyl 5 mg tablet,delayed 10 mg (2 x 5 mg) PO BEDTIME 2 days 11/19/23 release (Dulcolax (bisacodyl)) #4 tabs omeprazole 20 mg capsule,delayed 20 mg PO DAILY #30 caps 11/19/23 release peg 3350-electrolytes 236 240 ml PO Q10M 1 day #4,000 mL 11/19/23 gram-22.74 gram-6.74 gram-5.86 gram solution (Golytely) simethicone 180 mg capsule 180 mg PO QID 30 days #120 caps 11/19/23 hydrocortisone 1 % topical cream 1 appl topical BID PRN itching 12/06/23 (Cortisone (hydrocortisone)) #28.35 grams pyridoxine (vitamin B6) 100 mg 100 mg PO DAILY kidney stones 90 12/28/23 tablet days #90 tabs fluticasone furoate 200 1 ea inhalation DAILY #1 ea 02/15/24 mcg-vilanterol 25 mcg/dose inhalation powder (Breo Ellipta) umeclidinium 62.5 mcg/actuation 1 inh inhalation DAILY #1 ea 02/15/24 blister powder for inhalation (Incruse Ellipta) fosfomycin tromethamine 3 gram 1 packet PO Q OTHER DAY 1 dose #1 04/21/24 oral packet ea montserrat (Ultra-Light Rollator misc) #1 ea 04/21/24 fosfomycin tromethamine 3 gram 1 packet PO Q OTHER DAY 3 doses #1 04/30/24 oral packet ea Allergies Allergy/AdvReac Type Severity Reaction Status Date / Time shellfish derived Allergy Intermediate HIVES, N/V Verified 04/30/24 17:01 Review of Systems Review of Systems: Constitutional : No Weight loss, No Fever, No Chills, No Night Sweats, No Fatigue, No Malaise ENT/Mouth : No Hearing loss, No Ear Pain, No Nasal Congestion, No Sinus Pain, No Hoarseness, No sore throat, No Rhinorrhea, No Swallowing Difficulty Eyes: No Eye Pain, No Swelling, No Redness, No Foreign Body, No Discharge, No Vision Changes Cardiovascular : No Chest Pain, No SOB, No Dyspnea on Exertion, No Orthopnea, No Edema, No Palpitations Respiratory : No Cough, No Sputum, No Wheezing, No Smoke Exposure, No Dyspnea Gastrointestinal : No Nausea, No Vomiting, No Diarrhea, No Constipation, No abdominal Pain, No Hematochezia, No Melena Genitourinary : Complaining of constant suprapubic discomfort /pressure, No Dysuria, No Urinary Frequency, No Hematuria, No Urinary Incontinence, No Urgency, No Flank Pain, No Urinary Flow Changes, No Hesitancy Musculoskeletal : No joint pain, No Myalgias, No Joint Swelling Skin : No Skin Lesions, No rash Neuro : No Weakness, No Numbness, No Paresthesias, No Loss of Consciousness, No Dizziness, No Headache Psych : No Anxiety/Panic, No Depression, No SI/HI/AH/VH, No Social Issues, Heme/Lymph: No Bruising, No Bleeding,No Lymphadenopathy Endocrine : No Polyuria, No Polydipsia, No Temperature Intolerance PMFSH Past Medical History 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 HIV (human immunodeficiency virus infection) History of blood transfusion Anemia Hx of renal calculi Difficulty swallowing GERD (gastroesophageal reflux disease) Hepatitis Depression Sleep apnea Asthma Elevated cholesterol HTN (hypertension) Surgical History Hx of colonoscopy Hx of cystoscopy Hx of dilation and curettage Hx of section Hx of reduction mammoplasty Hx of tubal ligation Hx of cholecystectomy Family History Family History Mother Breast cancer Father Heart problem Sister Bone cancer Family/Other Diabetes Social History Social History Household Members: Family Housing: Apartment Do you presently have visiting nurse or other home services: No Alcohol intake: current Alcohol intake frequency: holidays/special occasions only Alcohol type: wine Patient Tobacco Use Status: Former Tobacco user Tobacco use type: Cigarette Cigarette Packs Per Day: 2 Cigarettes Per Day: 40.0 Years Smoked: 40 Smoked in Last 30 Days: No e-Cigarette/Vaping Use: Never Used Second Hand Smoke Exposure: No Use of substances other than those prescribed or required for medical reasons: No Substance Use Type: Former Substance User Advance Directives: No Advance Directives Information Provided: No Do you have a plan to hurt others: No Plan Patient : No service: No Sexual orientation: Straight/Heterosexual Gender identity: Female Physical Exam Vital Signs: Vital Signs: Last Vital Signs Temp 98.7 F 04/30/24 23:40 Pulse 60 04/30/24 23:40 Resp 17 04/30/24 23:40 BP 124/61 04/30/24 23:40 Pulse Ox 95 04/30/24 23:40 O2 Del Method Room Air 04/30/24 23:40 BMI result Body Mass Index 35.5 Const: Other: Appearance: Alert. Oriented X3. No acute distress. Eyes: Pupils equal, round and reactive to light. ENT: Pharynx normal. Neck: Normal inspection. Neck supple. No lymph nodes noted. No crepitus CVS: Normal heart rate and rhythm. Pulses normal. Normal S1 and S2 Respiratory: No respiratory distress. Breath sounds normal. No Wheezing. No rales Abdomen: Soft and nontender. No rigidity. No distention. Skin: Skin warm and dry. Normal skin color. Normal skin turgor. Extremities: No lower extremity edema. No Lacerations. No Rash Neuro: Oriented X 3. No motor deficit. No sensory deficit. Moving all extremities. No slurred speech. CN 2 through 12 grossly intact Psych: calm, cooperative, normal affect Course Course Course Narrative: This is an RME performed by S. Barcome, CHIEF PROGRAM OFFICER: Additional HPI, ROS, PE not included below will be deferred to primary provider. Patient is a 64-year-old female who presents emergency department for evaluation of UTI states she was sent here for antibiotic treatment by Dr. Strong. Review of medical record indicates urine culture dated 04/28/2024 with ESBL E. coli susceptible only to ertapenem and gentamicin, will obtain serum labs in addition to lactic acid blood cultures, placed in waiting room pending bed availability though she may require admission for parenteral antibiotics. Medical Decision Making Medical Decision Making [facility] Narrative: my interpretation of labs: Patient's white blood cell count within normal limits. , chemistry at baseline, lactic acid 1.4 urinalysis has a moderate amount of leukocyte esterase, always positive for the patient's since at least 2020. Patient has a large amount of squamous epithelial cells. Within normal limit count of RBCs white blood cell counts, no bacteria present. patient has history of ESBL E coli growing in her urine. Patient was discharged from the hospital approximately 1 week ago for the same complaint. Patient was sent home with a dose of fosfomycin x1. I discussed with the patient that today we will go ahead and treat with 1 more dose of fosfomycin. Patient instructed to follow-up with urology. Patient states that she has an appointment pending. Patient is well-appearing, no other UTI symptoms other than suprapubic pressure which is chronic for the patient, vitals stable: Blood pressure 124/63, heart rate 59, respirations 20, temperature 98 degrees F, oxygen saturation 99% on room air a prescription has been sent to patient's pharmacy, we do not have fosfomycin available in the hospital Differential Diagnosis Differential Diagnoses: The differential diagnosis associated with the presentation includes ( UTI, cystitis) Lab Data [facility] Lab Attestation statement: I reviewed the patient's lab results. 04/30/24 17:08 04/30/24 17:08 Labs: Lab Results 04/30/24 04/30/24 Range/Units 17:08 17:15 WBC 5.6 (4.8-10.8) X10*3/uL RBC 4.07 L (4.20-5.50) X10*6/uL Hgb 11.9 L (12.0-16.0) g/dl Hct 35.7 L (37.0-47.0) % MCV 87.7 (80.0-98.0) fL MCH 29.2 (27.0-33.0) pg MCHC 33.3 (31.0-35.0) g/dl RDW 12.9 (11.0-16.0) % Plt Count 225 (160-400) X10*3/uL MPV 11.4 (9.4-12.3) fL Immature Gran % (Auto) 0.2 (0.0-0.4) % Neut % (Auto) 67.3 (45-73) % Lymph % (Auto) 24.1 (20-40) % [place] % (Auto) 6.8 (2-11) % Eos % (Auto) 1.1 (0-4) % Baso % (Auto) 0.5 (0-2) % Lymph # (Auto) 1.4 (1.2-4.9) X10*3/uL [place] # (Auto) 0.4 (0.1-1.2) X10*3/uL Eos # (Auto) 0.1 (0.0-0.4) X10*3/uL Baso # (Auto) 0.0 (0.0-0.2) X10*3/uL Abs Immat Gran (auto) 0.01 (0.00-0.03) X10*3/uL Absolute Neuts (auto) 3.8 (2.0-8.3) x10*3/uL Absolute Nucleated RBC 0.000 (0.0-0.012) X10*3/uL Nucleated RBC % (auto) 0.0 (0.0-0.2) /100WBC Sodium 143 (135-145) mmol/L Potassium 4.0 (3.3-5.1) mmol/L Chloride 113 H (96-108) mmol/L Carbon Dioxide 23 (22-29) mmol/L Anion Gap 11 L (12-20) BUN 25 H (9-16) mg/dL Creatinine 0.93 (0.5-1.4) mg/dL Estim Creat Clear Calc 66.2 Estimated GFR > 60 Random Glucose 100 (60-115) mg/dL Lactic Acid 1.4 (0.5-2.0) mmol/L Calcium 9.1 (8.4-10.2) mg/dL Total Bilirubin 0.2 (0.0-1.0) mg/dL AST 20 (5-31) U/L ALT 14 (0-31) U/L Alkaline Phosphatase 69 (39-117) U/L Total Protein 7.7 (6.5-8.0) g/dL Albumin 4.0 (3.5-5.0) g/dL Urine Color Yellow Urine Appearance Clear Urine pH 6.5 (5.0-9.0) Ur Specific [place] 1.015 (1.005-1.025) Urine Protein Negative (Neg-Trace) mg/dL Urine Glucose (UA) Negative (Negative) mg/dL Urine Ketones Negative (Negative) mg/dL Urine Blood Negative (Negative) Urine Nitrite Negative (Negative) Ur Leukocyte Esterase Moderate (2+) H (Negative) Urine RBC 0-2 (0-2) /HPF Urine WBC 11-20 (0-5) /HPF Ur Squamous Epith Cells 11-20 (0-2) /HPF Urine Bacteria None Seen (None Seen) Hyaline Casts 0-2 (0-2) /LPF Discharge Plan Discharge Clinical Impression: Cystitis Patient Disposition: Home, Self-Care Instructions: Urinary Tract Infection in Women (DC) Additional Instructions: Please follow-up with your primary care physician tomorrow. If you have any worsening or new symptoms, please return to the emergency room or call 911 Prescriptions: New fosfomycin tromethamine 3 gram packet 1 packet PO Q OTHER DAY Qty: 1 0RF No Action hydrocortisone [Cortisone (hydrocortisone)] 1 % cream 1 appl topical BID PRN (Reason: itching) Qty: 28.35 0RF Genvoya [phone] mg tablet 1 tab PO DAILY Rx Instructions: with breakfast guaifenesin [Mucinex] 600 mg tablet extended release 12hr 600 mg PO Q12H PRN (Reason: cough) 3 Days Qty: 6 0RF albuterol sulfate 2.5 mg /3 mL (0.083 %) Solution For Nebulization 2.5 mg INHALATION Q4-6H PRN (Reason: Shortness Of Breath) Qty: 75 0RF meloxicam 15 mg tablet 15 mg PO DAILY Qty: 30 0RF sertraline 100 mg tablet 100 mg PO DAILY PRN (Reason: mood) Qty: 30 0RF meclizine 12.5 mg tablet 12.5 mg PO TID PRN (Reason: Vertigo) Qty: 12 0RF dicyclomine 20 mg tablet 20 mg PO TID Qty: 90 0RF furosemide 20 mg tablet 20 mg PO DAILY 30 Days Qty: 30 6RF zolpidem 10 mg tablet 10 mg PO BEDTIME Qty: 30 0RF loratadine 10 mg Tablet 10 mg PO DAILY Qty: 30 0RF naproxen 500 mg tablet 500 mg PO BID PRN (Reason: pain) 7 Days Qty: 14 0RF losartan 100 mg tablet 100 mg PO DAILY triamcinolone acetonide 0.5 % cream 1 appl topical BID ondansetron 4 mg tablet,disintegrating 4 mg PO Q6H PRN (Reason: nausea and vomiting) Linzess 145 mcg capsule 145 mcg PO DAILY fosfomycin tromethamine 3 gram packet 1 packet PO Q OTHER DAY Qty: 1 0RF (DME) Ultra-Light Rollator Misc See Rx Instructions .Route Qty: 1 0RF Rx Instructions: As directed pyridoxine (vitamin B6) 100 mg tablet 100 mg PO DAILY 90 Days Qty: 90 3RF Incruse Ellipta 62.5 mcg/actuation blister with device 1 inh inhalation DAILY Qty: 1 6RF fluticasone furoate-vilanterol [Breo Ellipta] 200-25 mcg/dose blister with device 1 ea inhalation DAILY Qty: 1 6RF albuterol sulfate [Ventolin HFA] 90 mcg/actuation HFA aerosol inhaler 2 puff inhalation QID PRN (Reason: asthma) rosuvastatin 40 mg tablet 40 mg PO BEDTIME ketotifen fumarate 0.025 % (0.035 %) drops 2 drp ophthalmic (eye) DAILY omeprazole 20 mg capsule,delayed release(DR/EC) 20 mg PO DAILY Qty: 30 6RF simethicone 180 mg capsule 180 mg PO QID 30 Days Qty: 120 6RF Rx Instructions: after meals peg 3350-electrolytes [Golytely] 236-22.74-6.74 -5.86 gram recon soln 240 ml PO Q10M 1 Days Qty: 4000 0RF Rx Instructions: until fecal effluent is clear; do not exceed a total volume of 2,000 mL bisacodyl [Dulcolax (bisacodyl)] 5 mg tablet,delayed release (DR/EC) 10 mg PO BEDTIME 2 Days Qty: 4 0RF Interventions: ED Discharge Assessment Last Done: 04/30/24 23:40 Discharge Date/Time: 04/30/24 23:41 Print Language: Yakut
[2024-04-30 16:58] VITALS: BP 165/70; PULSE 70; RESP 18; TEMP 36.6; O2SAT 99; BMI 35.5
[2024-04-30 17:17] LABS: MANUAL DIFF FLAG NO
[2024-04-30 17:22] LABS: Basophils Percent Auto 0.5 % (0-2); Eosinophils Absolute Auto 0.1 X10*3/uL (0.0-0.4); Eosinophils Percent Auto 1.1 % (0-4); Hematocrit 35.7 % (37.0-47.0); Hemoglobin 11.9 g/dl (12.0-16.0); Imm Gran Abs Auto 0.01 X10*3/uL (0.00-0.03); Imm Gran Pct Auto 0.2 % (0.0-0.4); Lymphocytes Absolute Auto 1.4 X10*3/uL (1.2-4.9); Lymphocytes Percent Auto 24.1 % (20-40); Mean Corpuscular HGB Conc 33.3 g/dl (31.0-35.0); Mean Corpuscular Hemoglobin 29.2 pg (27.0-33.0); Mean Corpuscular Volume 87.7 fL (80.0-98.0); Mean Platelet Volume 11.4 fL (9.4-12.3); Monocytes Absolute Auto 0.4 X10*3/uL (0.1-1.2); Monocytes Percent Auto 6.8 % (2-11); Neutrophils Absolute Auto 3.8 x10*3/uL (2.0-8.3); Neutrophils Percent Auto 67.3 % (45-73); Platelet Count 225 X10*3/uL (160-400); Red Blood Count 4.07 X10*6/uL (4.20-5.50); Red Cell Distribution Width 12.9 % (11.0-16.0); White Blood Count 5.6 X10*3/uL (4.8-10.8)
[2024-04-30 17:24] LABS: Appearance Urine Clear; Color Urine Yellow; Glucose Urine UA Negative (Negative); Leukocyte Esterase Urine Moderate (2+) (Negative); Nitrite Urine Negative (Negative); PH 6.5 (5.0-9.0); Specific Gravity - Urine 1.015 (1.005-1.025); UMIC TRIGGER UACC YES; Urine Blood Negative (Negative); Urine Ketones Negative (Negative); Urine Protein Negative (Neg-Trace)
[2024-04-30 17:42] LABS: Bacteria Urine None Seen (None Seen); Hyaline Casts Urine 0-2 /LPF (0-2); RBC Urine 0-2 /HPF (0-2); UACC Culture Trigger YES
[2024-04-30 17:45] LABS: Lactic Acid 1.4 mmol/L (0.5-2.0)
[2024-04-30 17:46] LABS: Alanine Aminotransferase 14 U/L (0-31); Alkaline Phosphatase 69 U/L (39-117); Anion Gap 11 (12-20); Aspartate Amino Transferase 20 U/L (5-31); Bilirubin Total 0.2 mg/dL (0.0-1.0); Blood Urea Nitrogen 25 mg/dL (9-16); Calcium 9.1 mg/dL (8.4-10.2); Carbon Dioxide 23 mmol/L (22-29); Chloride 113 mmol/L (96-108); Creatinine Clr Calc Pharmacy 66.2; Estimated Glomerular Filt Rate > 60; Glucose Random 100 mg/dL (60-115); Sodium 143 mmol/L (135-145); Total Protein 7.7 g/dL (6.5-8.0)
[2024-04-30 19:51] VITALS: BP 157/56; PULSE 66; RESP 18; TEMP 36.9; O2SAT 99
[2024-04-30 20:47] VITALS: BP 124/63; PULSE 59; RESP 20; TEMP 36.7; O2SAT 98
[2024-04-30 23:31] VITALS: BP 124/61; PULSE 60; RESP 17; TEMP 37.1; O2SAT 95
[2024-04-30 23:40] VITALS: BP 124/61; PULSE 60; RESP 17; TEMP 37.1; O2SAT 95
== END 2024-04-30 23:41 | disposition home or self-care (01) ==
PROVIDERS: Nurse Practitioner Family; Emergency Provider Emergency Medicine; PCP Internal Medicine
DX: N30.90 Cystitis, unspecified without hematuria (principal); Z79.899 Other long term (current) drug therapy; Z87.891 Personal history of nicotine dependence
CPT/HCPCS: 36415; 80053; 81001; 83605; 85025; 87040; 87086; 99284

== ENCOUNTER 2024-05-10 10:59 | Outpatient (REF) | payer MEDICAID, SELFPAY ==
--- OUTSIDE RECORDS SUMMARY | 2024-05-12 13:08 | XMS_ITS | Encounter Summary ---
Author Organization [employer] [facility] Address [address] [facility] [address] [place] [address] Care Team Providers Care Cycle Specialist Name Role Phone Unavailable Primary Care Provider [...]
--- OUTSIDE RECORDS SUMMARY | 2024-05-12 13:08 | XMS_ITS | Clinical Summary ---
Author Organization [employer] Address [address] [facility] [address] [place] [address] Care Team Providers Care Process Architect Name Role Phone Unavailable Primary Care Provider [...] by mouth at bedtime. 4 Active Genvoya [phone] MG tablet Take 1 tablet by mouth [...] Type Department Care Team Description 04/13/2024 Telephone [facility] AD[facility] [address] [place] [address] Ruel Suresh rs no show appt 04/06/2024 Telephone [facility] [address] [place] [address] Ruel Suresh from Last 3 Months Immunizations [...] Most Recently Relevant to Health Maintenance Insurance [facility] STANDARD DENTAL-[facility] MEDICAID STAND ADULT
--- OUTSIDE RECORDS SUMMARY | 2024-05-12 13:08 | XMS_ITS | Encounter Summary ---
Author Organization [employer] Address [address] [facility] [address] [place] [address] Care Team Providers Care Perianesthesia Manager Name Role Phone Unavailable Primary Care Provider Unavailabl e Reason for Visit * Reason Onset Date Comments rs no show appt 04/13/2024 Encounter Details Date Type Department Care Team ([facility] st Contact Info) Description 04/13/2024 Telephone [facility] [address] [place] [address] Ruel Suresh rs no show appt Social [...]
== END 2024-05-10 11:00 | disposition home or self-care (01) ==
LOC: HO.HOSX 10:59
PROVIDERS: Visit Provider Physician Assistant
DX: Z13.89 Encounter for screening for other disorder (principal)

== ENCOUNTER 2024-05-12 10:31 | Day surgery (SDC) | payer MEDICAID, SELFPAY ==
--- NOTE | 2024-05-11 11:04 | P.CONAN_ITS ---
Documented by User: Tonja Rajan NP 05/11/24 11:04 HPI - Anesthesia Eval Consult details Narrative: 64yo F for Colonoscopy PMFSH Active Problems Active Problems: All Active Problems Microscopic hematuria (Acute) Pelvic pain (Acute) UTI (urinary tract infection) (Acute) Well woman exam (Acute) Dyspnea on exertion (Acute) Pre-op examination (Acute) Kidney stone on left side (Acute) Postmenopausal bleeding (Acute) Dysplasia of cervix, low grade (RUDI 1) (Acute) LGSIL on Pap smear of cervix (Acute) Endometrial thickening on ultrasound (Acute) Cystitis (Acute) Dysuria (Acute) Reactive airway disease (Acute) H/O recurrent pneumonia (Acute) Personal history of tobacco use (Acute) Interstitial lung disease (Acute) Emphysema lung (Acute) Abdominal bloating (Acute) Varicose veins of right lower extremity with inflammation (Acute) Osteoarthritis of left knee (Acute) Primary osteoarthritis of hands, bilateral (Acute) Chronic idiopathic constipation (Acute) Serrated polyp of colon (Acute) Bilateral nephrolithiasis (Acute) Uterine fibroid (Acute) Hematuria (Acute) Fibromyalgia (Acute) 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) Hepatitis (Acute) Depression (Acute) Asthma (Acute) Anemia (Acute) Elevated cholesterol (Acute) GERD (gastroesophageal reflux disease) (Acute) Sleep apnea (Acute) HTN (hypertension) (Acute) HIV (human immunodeficiency virus infection) (Acute) Past Medical History 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 HIV (human immunodeficiency virus infection) History of blood transfusion Anemia Hx of renal calculi Difficulty swallowing GERD (gastroesophageal reflux disease) Hepatitis Depression Sleep apnea Asthma Elevated cholesterol HTN (hypertension) Family History Family History Mother Breast cancer Father Heart problem Sister Bone cancer Family/Other Diabetes Family history of problems with anesthesia: No Surgical History Surgical History Hx of colonoscopy Hx of cystoscopy Hx of dilation and curettage Hx of section Hx of reduction mammoplasty Hx of tubal ligation Hx of cholecystectomy History of Problems with Anesthesia: No Social History Social History Household Members: Family Housing: Apartment Are you a primary healthcare representative to a significant other at home: No Do you presently have visiting nurse or other home services: No Alcohol intake: current Alcohol intake frequency: holidays/special occasions only Alcohol type: wine Patient Tobacco Use Status: Former Tobacco user Tobacco use type: Cigarette Cigarette Packs Per Day: 2 Cigarettes Per Day: 40.0 Years Smoked: 40 e-Cigarette/Vaping Use: Never Used Second Hand Smoke Exposure: No Substance Use Type: Former Substance User service: No Sexual orientation: Straight/Heterosexual Gender identity: Female Meds Allergies Allergy/AdvReac Type Severity Reaction Status Date / Time shellfish derived Allergy Intermediate HIVES, N/V Verified 05/12/24 12:39 Home Medications ?Medication ?Instructions ?Recorded ?Confirmed ?Last Taken ?Type elviteg 150 mg-cob 150 mg-emtricit 1 tab PO DAILY 07/17/23 05/12/24 04/19/24 History 200 mg-tenofo alafenam 10 mg tablet (Genvoya) albuterol sulfate 90 mcg/actuation 2 puff inhalation QID PRN asthma 11/19/23 05/12/24 04/19/24 History aerosol inhaler (Ventolin HFA) ketotifen fumarate 0.025 % (0.035 2 drp ophthalmic (eye) DAILY 11/19/23 05/12/24 04/19/24 History %) eye drops rosuvastatin 40 mg tablet 40 mg PO BEDTIME 11/19/23 05/12/24 04/19/24 History losartan 100 mg tablet 100 mg PO DAILY 04/05/24 05/12/24 04/19/24 History triamcinolone acetonide 0.5 % 1 appl topical BID 04/05/24 05/12/24 04/19/24 History topical cream linaclotide 145 mcg capsule 145 mcg PO DAILY 04/20/24 05/12/24 04/19/24 History (Linzess) ondansetron 4 mg disintegrating 4 mg PO Q6H PRN nausea and vomiting 04/20/24 05/12/24 04/19/24 History tablet Assessment and Plan Assessment Anesthesia Assessment: Chart Reviewed Final Anesthetic Review Family History of Problems with Anesthesia: No History of Problems with Anesthesia: No Documented by User: Shira Crooks MD 05/12/24 12:53 [facility] Past Medical History 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 HIV (human immunodeficiency virus infection) History of blood transfusion Anemia Hx of renal calculi Difficulty swallowing GERD (gastroesophageal reflux disease) Hepatitis Depression Sleep apnea Asthma Elevated cholesterol HTN (hypertension) Family History Family History Mother Breast cancer Father Heart problem Sister Bone cancer Family/Other Diabetes Surgical History Surgical History Hx of colonoscopy Hx of cystoscopy Hx of dilation and curettage Hx of section Hx of reduction mammoplasty Hx of tubal ligation Hx of cholecystectomy Social History Social History Household Members: Family Housing: Apartment Are you a primary healthcare representative to a significant other at home: No Do you presently have visiting nurse or other home services: No Alcohol intake: current Alcohol intake frequency: holidays/special occasions only Alcohol type: wine Patient Tobacco Use Status: Former Tobacco user Tobacco use type: Cigarette Cigarette Packs Per Day: 2 Cigarettes Per Day: 40.0 Years Smoked: 40 e-Cigarette/Vaping Use: Never Used Second Hand Smoke Exposure: No Substance Use Type: Former Substance User service: No Sexual orientation: Straight/Heterosexual Gender identity: Female Meds Allergies Allergy/AdvReac Type Severity Reaction Status Date / Time shellfish derived Allergy Intermediate HIVES, N/V Verified 05/12/24 12:39 Home Medications ?Medication ?Instructions ?Recorded ?Confirmed ?Last Taken ?Type elviteg 150 mg-cob 150 mg-emtricit 1 tab PO DAILY 07/17/23 05/12/24 04/19/24 History 200 mg-tenofo alafenam 10 mg tablet (Genvoya) albuterol sulfate 90 mcg/actuation 2 puff inhalation QID PRN asthma 11/19/23 05/12/24 04/19/24 History aerosol inhaler (Ventolin HFA) ketotifen fumarate 0.025 % (0.035 2 drp ophthalmic (eye) DAILY 11/19/23 05/12/24 04/19/24 History %) eye drops rosuvastatin 40 mg tablet 40 mg PO BEDTIME 11/19/23 05/12/24 04/19/24 History losartan 100 mg tablet 100 mg PO DAILY 04/05/24 05/12/24 04/19/24 History triamcinolone acetonide 0.5 % 1 appl topical BID 04/05/24 05/12/24 04/19/24 History topical cream linaclotide 145 mcg capsule 145 mcg PO DAILY 04/20/24 05/12/24 04/19/24 History (Linzess) ondansetron 4 mg disintegrating 4 mg PO Q6H PRN nausea and vomiting 04/20/24 05/12/24 04/19/24 History tablet Exam Airway Mallampati Class: II TM Dist: >3cm Neck ROM: Full Heart: rrr Lungs: cta Assessment and Plan Assessment Anesthesia Assessment: Anesthesia Plan Discussed Final Anesthetic Review NPO: Yes ASA Class: II Final Preanesthetic Review: No Changes in Pt Med Stat, Meds/Allgs Chart Reviewed and Consent Obtained/Reviewed Patient Risk: Low Procedure Risk: Low Anesthetic Plan Anesthetic Plan: MAC: Disposition: Standard PACU
[2024-05-12 11:45] VITALS: BMI 34.7
--- OUTSIDE RECORDS SUMMARY | 2024-05-12 12:00 | XMS_ITS | Encounter Summary ---
Author Organization [facility] Address [address] [facility] [address] [place] [address] Care Team Providers Care Civil Division Commander Deputy Sheriff Name Role Phone Unavailable Primary Care Provider Unavailabl e Encounter Details Date Type Department Care Team (Latest Contact Info) Description 09/27/2020 Abstract [facility] CONVERSIONS Dental, Provider, DDS Social History Tobacco Use Types Packs/Day Years Used Date Smoking Tobacco: Never Assessed Comments Unknown Sex and Gender Information Value Date Recorded Sex Assigned at Female 02/16/2022 10:16 AM EDT Legal Sex Female 10:16 AM EDT Gender Identity Female 02/16/2022 10:16 AM EDT Sexual Orientation Straight 02/16/2022 10 :16 AM EDT documented as of this encounter Plan of Treatment Not on file documented as of this encounter Visit Diagnoses Not on filedocumented in this encounter
--- OUTSIDE RECORDS SUMMARY | 2024-05-12 12:00 | XMS_ITS | Encounter Summary ---
Author Organization [employer] Address [address] [facility] [address] [place] [address] Care Team Providers Care Cloth Covered Helmet Puller Name Role Phone Unavailable Primary Care Provider Unavailabl e Reason for Visit * Reason Onset Date Comments rs no show appt 04/13/2024 Encounter Details Date Type Department Care Team ([facility] st Contact Info) Description 04/13/2024 Telephone [facility] [address] [place] [address] Ruel Suresh rs no show appt Social History Tobacco Use Types Packs/Day Years Used Date Smoking Tobacco: Never Passive Smoke Exposure: Never Smokeless Tobacco: Never Comments Unknown Sex and Gender Information Value Date Recorded Sex Assigned at Female 02/16/2022 10:16 AM EDT Legal Sex Female 10:16 AM EDT Gender Identity Female 02/16/2022 10:16 AM EDT Sexual Orientation Straight 02/16/2022 10 :16 AM EDT documented as of this encounter Miscellaneous Notes * Telephone Encounter - Didi Noyola - 04/13/2024 8:28 AM EST Patient called in to reschedule no show appt. She was on her way to the hospital due to emergency. Patient was informed that there is a waiting period for no show appts and office will reach out to her for rescheduling when rik name comes back up. Patient understood DR documented in this encounter Plan of Treatment Not on file documented as of this encounter Visit Diagnoses Not on filedocumented in this encounter
--- OUTSIDE RECORDS SUMMARY | 2024-05-12 12:00 | XMS_ITS | Clinical Summary ---
Author Organization [employer] Address [address] [facility] [address] [place] [address] Care Team Providers Care Wing Commander Name Role Phone Unavailable Primary Care Provider Unavailabl e Allergies No known active allergies Medications albuterol (2.5 MG/3ML) 0.083% nebulizer solution USE 3 ML VIA NEBULIZER EVERY 4-6 HOURS NEEDED FOR SHORTNESS OF BREATH Active dicyclomine (Bentyl) 20 MG tablet Take 20 mg by mouth 3 times daily. 4 Active Banophen 25 MG capsule Take 25 mg by mouth at bedtime. 4 Active Genvoya [phone] MG tablet Take 1 tablet by mouth with breakfast. 4 Active Breo Ellipta 200-25 MCG/ACT aerosol powder INHALE 1 PUFF BY MOUTH DAILY 4 Active Advair Diskus 250-50 MCG/ACT aerosol powder Inhale 2 puffs 2 times daily. Active furosemide (Lasix) 20 MG tablet Take 20 mg by mouth Once per day. 4 Active Linzess 145 MCG capsule Take 145 mcg by mouth in the morning. 4 Active loratadine (Claritin) 10 MG tablet Take 10 mg by mouth Once per day. 4 Active meclizine (Antivert) 12.5 MG tablet TAKE 1 TABLET BY MOUTH THREE TIMES DAILY NEEDED FOR VERTIGO 4 Active meloxicam (Mobic) 15 MG tablet Take 15 mg by mouth Once per day. 4 Active nitrofurantoin (Macrodantin) 50 MG capsule Take 50 mg by mouth Once per day. 4 Active omeprazole (PriLOSEC) [address] capsule Take 20 mg by mouth Once per day. Active sertraline (Zoloft) 100 MG tablet Take 100 mg by mouth Once per day. 4 Active zolpidem (Ambien) 10 MG tablet Take 10 mg by mouth at bedtime. 4 Active Encounters Date Type Department Care Team Description 04/13/2024 Telephone [facility] ADULT DENTAL [address] [place] [address] Ruel Suresh rs no show appt 04/06/2024 Telephone [facility] ADULT DENTAL [address] [place] [address] Ruel Suresh from Last 3 Months Immunizations Name Administration Dates Next Due Influenza Injectable Quadriv alant Preservative Free IIV4 MDCK 12/31/2022 Influenza injectable quadriv alent preservative free 02/09/2022,02/15/2020,02/14/2019 Influenza, seasonal, injecta ble, preservative free 01/30/2016,02/19/2015 Moderna Covid-19 Vaccine 12+ 08/14/2020 Pneumococcal Conjugate PCV 13 02/19/2015 Pneumococcal Polysaccharide PPSV23 03/22/2012 Tdap 12/09/2017 Zoster, Recombinant 03/04/2023,12/31/2022 Social History Tobacco Use Types Packs/Day Years Used Date Smoking Tobacco: Never Passive Smoke Exposure: Never Smokeless Tobacco: Never Tobacco Cessation:Counseling Given: Not Answered Comments Unknown Sex and Gender Information Value Date Recorded Sex Assigned at Female 02/16/2022 10:16 AM EDT Legal Sex Female 10:16 AM EDT Gender Identity Female 02/16/2022 10:16 AM EDT Sexual Orientation Straight 02/16/2022 10 :16 AM EDT Last Filed Vital Signs Vital Sign Reading Time Taken Comments Blood Pressure 142/72 10/11/2023 8:03 AM EDT Pulse 55 10/11/2023 8:03 AM EDT Temperature - - Respiratory Rate - - Oxygen Saturation - - Inhaled Oxygen Concentration - - Weight - - Height - - Body Mass Index - - Plan of Treatment Health Maintenance Due Date Last Done Comments CT Colonography 1961 Colonoscopy 1961 Colorectal Cancer Screening 1961 Depression Screening 1961 FIT DNA/Cologuard 1961 FIT 1961 FOBT 1961 HIV Screening 1961 Lipid Panel 1961 SDOH Screening 1961 Sigmoidoscopy 1961 Meningococcal Vaccine (1 - Risk 2-dose series) 1963 Alcohol/Substance Use Screening 1973 Pap Smear 1982 Cervical Cancer Screening 1991 HPV/Cotest 1991 Mammogram 2001 Hepatitis A Vaccines (2 of 2 - Risk 2-dose series) 04/20/2007 10/18/2006 Hepatitis B Vaccines (1 of 3 - Risk 3-dose series) 2021 RSV Patients and Patients Aged 60 years or older (1 - Risk 60-74 years 1-dose series) 2021 COVID-19 Vaccine (4 - 2023- season) 2023 05/19/2021, 08/14/2020, 07/24/2020 Influenza Vaccine (#1) 2023 , 02/09/2022, 02/15/2020, Additional history exists Dental Oral Exam 04/12/2024 10/11/2023, 02/2021, 07/19/2018, Additional history exists Dental Prophylaxis 04/12/2024 10/11/2023, 0 09/27/2020, 03/01/2019, Additional history exists Tobacco Screening 10/10/2024 10/11/2023 Dental X-Ray: Bitewings 10/11/2024 10/11/19, 11/04/2021, 09/27/2020, Additional history exists Pneumococcal Vaccine: Pediatrics (0 to 5 Years) and At-Risk Patients (6 to 64 Years) (4 of 4 - PPSV23 or PCV20) 2026 02/19/2015, 03/22/2012, 05/08/2006 Dental X-Ray: Full Mouth 10/11/2026 10/11/2023, 06/17 DTaP/Tdap/Td Vaccines (2 - Td or Tdap) 12/10/2027 12/09/2017 Zoster Vaccines Completed 03/04/2023, 12/31/2022 HIB Vaccines Aged Out No longer eligi ble based on patient's age to complete this topic HPV Vaccines Aged Out No longer eligi ble based on patient's age to complete this topic IPV Vaccines Aged Out No longer eligi ble based on patient's age to complete this topic RSV under 20 months Aged Out No longe r eligible based on patient's age to complete this topic Rotavirus Vaccines Aged Out No longer eligible based on patient's age to complete this topic Procedures Procedure Name Priority Date/Time Associated Diagnosis Comments PROPHYLAXIS - ADULT Routine 10/11/2023 8 :00 AM EDT DIAGNOSTIC - DIAGNOSTIC IMAGING - INTRAORAL - COMPREHENSIVE SERIES OF RADIOGRAPHIC IMAGES Routine 10/11/2023 8:00 AM EDT PERIODIC ORAL EVALUATION - ESTABLISHED PATIENT Routine 10/11/2023 8:00 AM EDT from Last 3 Months or Most Recently Relevant to Health Maintenance Insurance [facility] STANDARD DENTAL-[facility] MEDICAID STAND ADULT
--- OUTSIDE RECORDS SUMMARY | 2024-05-12 12:00 | XMS_ITS | Patient Health Record ---
Author Organization Alec Strickland III, MD Address [address] [place] [address] Care Team Providers Care Disease Education Specialist Name Role Phone Kesha PRECIADO, [facility] Primary Care Provider Alec Beckwith Unavailable [phone] Allergies Allergen (clinical drug ingredient) Drug/Non Drug [...] Problem Status W/U Status Risk Notes Problem 5296252 Former smoker (Z87.891) Active confirmed She has a plan for prevention of relapse in times of stress. I have counseled her about ongoing smoking cessation. Problem 12509565 Hyperlipidemia (E78.5) Active confirmed A fasting lipid profile is not available and has been requested from primary care. Problem 578172662 Asthma (J45.909) Active confirmed It is pollen season and she has occasional wheezing. This is controlled with her medications. Problem 39143403 Hepatitis C (B19.20) Active confirmed There is no sig n at this time of ongoing active infection. Problem 132313806 Anemia (D64.9) Active confirmed Her hematocrit is 34% with a normal mean cell volume. This is likely the anemia of chronic disease and will be observed. Problem 680700735 Thrombocytopenia (D69.6) Active confirmed Her platelet count is now normal at 174,000. The value will be observed. Problem 31972388 Human immunodeficiency virus [HIV] disease (B20) Active confirmed She has not developed any recent infections or HIV related neoplasms. She is compliant with the recommendations of infectious disease. The viral load is well controlled. Problem 594628804 Lobular carcinom a in situ of right breast (D05.01) Active confirmed There is no sign of recurrent disease. She is due for mammography and a study has been ordered. 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 It was thought to be reactive. Problem 78180172 Essential hypertension (I10) Active confirmed Her blood pressure has been normal. She was referred back to primary care for measurement. Problem 78871673 Depressive disorder, not elsewhere classified (F32.9) Active confirmed Her depre ssion is stable and well controlled and she is compliant with her medication. Problem 919534176 Obesity (BMI 35.0-39.9 without comorbidity) (E66.01) Active confirmed Her body mass index is 29 and I have recommended regular exercise and weight reduction through a diet restricted in calories fat in sodium. She has lost six pounds since her last visit. Problem 53390274 Sleep apnea (G47.30) Active confirmed She has been treated for this and denies any daytime somnolence. No additional therapy is necessary. She says she has been compliant with treatment Problem 730160519 H/O carpal tunne l syndrome (Z86.69) Active confirmed She has mi ld symptoms of neuropathy in her hands but these are mild and she is conducting all the activities of daily life without impairment. Problem 702393321 Chronic kidney disease, stage I (N18.1) Active confirmed Her most recent available renal functions are normal. These will be followed carefully. On June 08, 2021. The BUN was 18, creatinine was normal. Problem 80309876 Hepatitis B (B19.10) Active confirmed There is [...] Date MEDICAID [address] JEANETTE DESIR [id number] [place] Bower Self - patient is the [...]
[2024-05-12] MEDS: Lactated Ringers 1,000 ML 100 ML IVCONT (12:03)
--- NOTE | 2024-05-12 12:06 | MHC.SHP ---
Pre-Procedural Eval Section A - 24 Hr Update-Section A only Date of Service: 05/12/24 The patient is an INPATIENT: No The patient has been examined within 24 hours of the surgical procedure. 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 HIV (human immunodeficiency virus infection) History of blood transfusion Anemia Hx of renal calculi Difficulty swallowing GERD (gastroesophageal reflux disease) Hepatitis Depression Sleep apnea Ast) History of Previous Operations: Relevant previous surgery/procedure and date(s) (Hx of colonoscopy Hx of cystoscopy Hx of dilation and curettage Hx of section Hx of reduction mammoplasty Hx of tubal ligation Hx of cholecystectomy) Allergies: Allergies Allergy/AdvReac Type Severity Reaction Status Date / Time shellfish derived Allergy Intermediate HIVES, N/V Verified 04/30/24 17:01 Review of Systems Sugical H&P ROS: Negative: Constitution, Cardiovascular, Respiratory and Gastrointestinal Exam Surgical H&P Exam: Normal: Heart, Normal: Lungs, Normal: Extremities and Normal: Abdomen Plan Diagnosis/Plan: Unchanged I have reviewed the history and physical and performed a pertinent physical examination on my patient. No changes have occurred unless specified. Time Spent With Patient Time: Total time managing care of this patient today ____ minutes.
[2024-05-12 12:28] VITALS: BP 123/63; PULSE 65; RESP 18; TEMP 36.8; O2SAT 98
--- NOTE | 2024-05-12 13:41 | P.OPN-COLO_ITS ---
Colonoscopy Operative Note Operative Note Date of Service: 05/12/24 Narrative: COLONOSCOPY TILL CECUM WITH SNARE POLYPECTOMY Pre-op diagnosis: Surveillance for colon polyps. Post-op diagnosis:? Colon polyps, Diverticulosis, hemorrhoids Endoscopist:? Shane Jade MD Anesthesia:?MAC Consent: Indications for the procedure and potential complications of bleeding, perforation, reaction to medications and missed diagnosis were discussed with the patient and informed consent was obtained. Instrument: Olympus PCF H 190 L variable stiffness pediatric colonoscope Monitoring: Vital signs and clinical assessment, intermittent blood pressure monitoring, continuous EKG monitoring, Pulse oximetry and Carbon Dioxide monitoring were done throughout the procedure. Please see anesthesia flowsheet. Colon withdrawl time was 24 minutes. Procedure: The patient was placed in the left lateral decubitis position and pre-procedure medications were administered. After a digital rectal examination of the ano-rectum, the video colonoscope was inserted into the rectum and advanced through the colon to the cecum. The colonoscope was slowly withdrawn in a retrograde panoramic fashion and the colon mucosa was carefully examined including a retroflexed view of the rectum. Findings and interventions are described below. Procedure Difficulty: Colon was long and tortuous and there was spasm and some loop formation Findings: Terminal Ileum: Not evaluated Cecum: Normal Ascending Colon: Normal Transverse Colon: Two 5-8 mm sessile polyps - removed with a cold snare Descending Colon: Normal Sigmoid Colon: A 7-8 mm diminutive appearing polyp - removed with a cold snare. Moderate diverticulosis Rectum: Normal Ano-rectum: Moderate internal hemorrhoids Colon preparation: Good after copious irrigation. [place] Bowel Preparation Scale Right colon; 2 Transverse colon: 2 Left colon; 2 (0 = Unprepared colon segment with mucosa not seen due to solid stool that cannot be cleared. 1 = Portion of mucosa of the colon segment seen, but other areas of the colon segment not well seen due to staining, residual stool and/or opaque liquid. 2 = Minor amount of residual staining, small fragments of stool and/or opaque liquid, but mucosa of colon segment seen well. 3 = Entire mucosa of colon segment seen well with no residual staining, small fragments of stool or opaque liquid) Impression and Post Procedure Diagnosis: Colonoscopy Findings: Three small polyps were removed Moderate diverticulosis seen in the sigmoid colon Moderate hemorrhoids on retroflexed exam. Plan: Pt has a FU appointment on 05/23/24 with Courtney Raines, SITE SUPERINTENDENT Repeat Colonoscopy in 3-5 years if polyps are adenomatous and due to history of adenomatous colon polyps Above findings were reviewed with the patient and relevant handouts were given and the discharge area.
[2024-05-12 13:45] VITALS: BP 88/38; PULSE 56; RESP 14; TEMP 36.3; O2SAT 100
[2024-05-12 13:49] VITALS: BP 105/53; PULSE 62; RESP 16; O2SAT 100
[2024-05-12 14:00] VITALS: BP 126/71; PULSE 65; RESP 18; TEMP 36.4; O2SAT 100
== END 2024-05-12 14:47 | disposition home or self-care (01) ==
PROVIDERS: PCP Internal Medicine; Visit Provider Internal Medicine Gastroenterology
PROC: 0DJD8ZZ Inspection of Lower Intestinal Tract, Via Natural or Artificial Opening Endoscopic (ICD-10-PCS; CPT 45378; principal; 2024-05-12 12:50)
DX: Z12.11 Encounter for screening for malignant neoplasm of colon (principal); Z86.0101 Personal history of adenomatous and serrated colon polyps; D12.3 Benign neoplasm of transverse colon; K63.5 Polyp of colon; K57.30 Diverticulosis of large intestine without perforation or abscess without bleeding; K64.8 Other hemorrhoids; K21.9 Gastro-esophageal reflux disease without esophagitis; K59.04 Chronic idiopathic constipation; B20 Human immunodeficiency virus [HIV] disease; K75.9 Inflammatory liver disease, unspecified; D64.9 Anemia, unspecified; I10 Essential (primary) hypertension; E78.00 Pure hypercholesterolemia, unspecified; M79.7 Fibromyalgia; J45.909 Unspecified asthma, uncomplicated; G47.30 Sleep apnea, unspecified; F32.A Depression, unspecified; Z87.442 Personal history of urinary calculi; Z90.49 Acquired absence of other specified parts of digestive tract; Z98.890 Other specified postprocedural states; Z87.891 Personal history of nicotine dependence
CPT/HCPCS: 45385; 88305; J2003; J2704

== ENCOUNTER → 2024-05-12 10:31 | Outpatient (BNV) | payer MEDICAID, SELFPAY | PROVIDERS: PCP Internal Medicine; Visit Provider Internal Medicine Gastroenterology | DX: Z12.11 Encounter for screening for malignant neoplasm of colon (principal); Z86.0100 Personal history of colon polyps, unspecified; K63.5 Polyp of colon; K57.30 Diverticulosis of large intestine without perforation or abscess without bleeding | CPT/HCPCS: 45385 ==

== ENCOUNTER 2024-05-15 10:21 | Outpatient (REF) | payer MEDICAID, SELFPAY ==
--- NOTE | ~2024-05-15 | MM_ITS ---
EXAMINATION: MM SCREENING DIGITAL BREAST TOMOSYNTHESIS, BILATERAL CLINICAL INFORMATION: Screening. Asymptomatic. COMPARISON: Mammography: Comparison is made with available priors TECHNIQUE: Digital breast mammography with tomosynthesis is performed in both the craniocaudal and mediolateral oblique views along with computer-aided detection (CAD). FINDINGS: There are scattered areas of fibroglandular density (ACR BI-RADS breast composition Category b). Bilateral reduction mammoplasty. There are no significant masses, abnormal calcifications, or other abnormalities. MM/MM tomosynthesis screening BI IMPRESSION: No mammographic evidence of malignancy. ASSESSMENT: BI-RADS BI-RADS 2 - Benign Findings RECOMMENDATION: Routine annual mammography screening. 1 year F/U This examination should not preclude the clinical evaluation of a suspicious palpable abnormality. This patient's information was entered into a reminder system with a target due date for their next mammogram. Electronically signed by: Elisa Quesada DO 05/15/2024 12:07 PM AMOR
--- OUTSIDE RECORDS SUMMARY | 2024-05-15 15:01 | XMS_ITS | Patient Health Record ---
Author Organization Alec Strickland III, MD Address [address] [place] [address] Care Team Providers Care Salvager Helper Name Role Phone Kesha PRECIADO, [facility] Primary Care Provider Alec Beckwith Unavailable [phone] Allergies Allergen (clinical drug ingredient) Drug/Non Drug [...] Problem Status W/U Status Risk Notes Problem 4241109 Former smoker (Z87.891) Active confirmed She has a plan for prevention of relapse in times of stress. I have counseled her about ongoing smoking cessation. Problem 85396412 Hyperlipidemia (E78.5) Active confirmed A fasting lipid profile is not available and has been requested from primary care. Problem 079862442 Asthma (J45.909) Active confirmed It is pollen season and she has occasional wheezing. This is controlled with her medications. Problem 87277970 Hepatitis C (B19.20) Active confirmed There is no sig n at this time of ongoing active infection. Problem 712379622 Anemia (D64.9) Active confirmed Her hematocrit is 34% with a normal mean cell volume. This is likely the anemia of chronic disease and will be observed. Problem 484437348 Thrombocytopenia (D69.6) Active confirmed Her platelet count is now normal at 174,000. The value will be observed. Problem 94576965 Human immunodeficiency virus [HIV] disease (B20) Active confirmed She has not developed any recent infections or HIV related neoplasms. She is compliant with the recommendations of infectious disease. The viral load is well controlled. Problem 888471059 Lobular carcinom a in situ of right breast (D05.01) Active confirmed There is no sign of recurrent disease. She is due for mammography and a study has been ordered. 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 It was thought to be reactive. Problem 75087181 Essential hypertension (I10) Active confirmed Her blood pressure has been normal. She was referred back to primary care for measurement. Problem 72822925 Depressive disorder, not elsewhere classified (F32.9) Active confirmed Her depre ssion is stable and well controlled and she is compliant with her medication. Problem 853966153 Obesity (BMI 35.0-39.9 without comorbidity) (E66.01) Active confirmed Her body mass index is 29 and I have recommended regular exercise and weight reduction through a diet restricted in calories fat in sodium. She has lost six pounds since her last visit. Problem 53278324 Sleep apnea (G47.30) Active confirmed She has been treated for this and denies any daytime somnolence. No additional therapy is necessary. She says she has been compliant with treatment Problem 232135982 H/O carpal tunne l syndrome (Z86.69) Active confirmed She has mi ld symptoms of neuropathy in her hands but these are mild and she is conducting all the activities of daily life without impairment. Problem 130002400 Chronic kidney disease, stage I (N18.1) Active confirmed Her most recent available renal functions are normal. These will be followed carefully. On June 08, 2021. The BUN was 18, creatinine was normal. Problem 59967601 Hepatitis B (B19.10) Active confirmed There is [...] Date MEDICAID [address] JEANETTE DESIR [id number] [phone] [id number] America Bower Self - patient is the [...]
--- OUTSIDE RECORDS SUMMARY | 2024-05-15 15:01 | XMS_ITS | Encounter Summary ---
Author Organization [employer] Address [address] [facility] [facility] [address] [place] [address] Care Team Providers Care Booster Operator Name Role Phone Unavailable Primary Care Provider Unavailabl e Reason for Visit * Reason Onset Date Comments rs no show appt 04/13/2024 Encounter Details Date Type Department Care Team ([facility] st Contact Info) Description 04/13/2024 Telephone [facility] [address] [place] [address] Ruel Suresh rs no show appt Social [...] Miscellaneous Notes * Telephone Encounter - Didi Noyloa - 04/13/2024 8:28 AM EST Patient called [...]
--- OUTSIDE RECORDS SUMMARY | 2024-05-15 15:01 | XMS_ITS | Clinical Summary ---
Author Organization [employer] Address [address] [facility] [address] [place] [address] Care Team Providers Care Field Crop Farmworker Name Role Phone Unavailable Primary Care Provider [...] by mouth at bedtime. 4 Active Genvoya [phone] MG tablet Take 1 tablet by mouth [...] Type Department Care Team Description 04/13/2024 Telephone [facility] ADULT [facility] [address] [place] [address] Ruel Suresh rs no show appt 04/06/2024 Telephone [facility] ADULT DENT[facility] [address] [place] [address] Ruel Suresh from Last 3 Months Immunizations [...] Most Recently Relevant to Health Maintenance Insurance [facility] STANDARD DENTAL-[facility] MEDICAID STAND ADULT
--- OUTSIDE RECORDS SUMMARY | 2024-05-15 15:01 | XMS_ITS | Encounter Summary ---
Author Organization [facility] Address [address] [facility] [address] [place] [address] Care Team Providers Care Heel Former Name Role Phone Unavailable Primary Care Provider [...]
== END 2024-05-15 10:22 | disposition home or self-care (01) ==
LOC: HO.MAMMO 10:21
PROVIDERS: Visit Provider Internal Medicine
DX: Z12.31 Encounter for screening mammogram for malignant neoplasm of breast (principal)
CPT/HCPCS: 77063; 77067

== ENCOUNTER 2024-05-15 11:04 | Outpatient (AMB) | payer MEDICAID, SELFPAY ==
--- NOTE | 2024-05-15 11:27 | MHC.OFFVIS ---
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 Services: Set Making Machine Operator Present ([employer]) Set Making Machine Operator Name: Alvaro Marroquin [id number] Information Interpreted: clinical only Senior Portfolio Manager: Senior Portfolio Manager Present (Fanny) Accompanied by: Self / Same As Patient Allergies shellfish derived Allergy (Intermediate, Verified 05/15/24 11:28) HIVES, N/V HPI Comments Details: Presenting for colposcopy for L UBALDO HPV negative 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 HIV (human immunodeficiency virus infection) History of blood transfusion Anemia Hx of renal calculi Difficulty swallowing GERD (gastroesophageal reflux disease) Hepatitis Depression Sleep apnea Asthma Elevated cholesterol HTN (hypertension) Surgical History Hx of colonoscopy Hx of cystoscopy Hx of dilation and curettage Hx of section Hx of reduction mammoplasty Hx of tubal ligation Hx of cholecystectomy Family History Mother Breast cancer Father Heart problem Sister Bone cancer Family/Other Diabetes Social History Household Members: Family Housing: Apartment Are you a primary care transition coordinator to a significant other at home: No Do you presently have visiting nurse or other home services: No Alcohol intake: current Alcohol intake frequency: holidays/special occasions only Alcohol type: wine Patient Tobacco Use Status: Former Tobacco user Tobacco use type: Cigarette Cigarette Packs Per Day: 2 Cigarettes Per Day: 40.0 Years Smoked: 40 e-Cigarette/Vaping Use: Never Used Second Hand Smoke Exposure: No Substance Use Type: Former Substance User service: No Sexual orientation: Straight/Heterosexual Gender identity: Female Female Reproductive History Menstrual Age of Menarche: 12 Review of Systems Const All systems reviewed & are unremarkable except as noted in HPI and below Reports as per HPI and Reports no additional complaints GI Reports no additional complaints Reports no additional complaints Office Procedures Colposcopy Colposcopy: Pre-Procedure Counseling: Before beginning the procedure, I conducted comprehensive counseling with the patient. We thoroughly discussed the procedure itself, including its details, alternatives, and all associated risks. This included but not limited to the following complications such as bleeding, infection, and injury to the vagina, bladder, and vessels, as well as the potential need for transfusion with all its associated risks. Subsequently, the patient sign the consent. Pap smear result: LSIL/HPV negative. Procedure: During the procedure, the following steps were performed: A speculum was inserted, and acetic acid was applied. Colposcopy was conducted, allowing visualization of the transformation zone. Acetowhite lesions were identified at the 5+7+12+1 o'clock position. Cervical biopsies were obtained from the 5+7+12+ o'clock position, followed by an endocervical curettage (ECC). Vaginoscopy of the upper vagina revealed no evidence of aceto-white lesions. Hemostasis was achieved using Monsel solution, and the patient tolerated the procedure well. Post-Procedure Instructions: The patient was advised to promptly contact the office or the after hours answering service or go to the emergency room if experiencing a temperature exceeding 100.4?F, abdominal pain, nausea/vomiting, or bleeding. Additionally, the patient was instructed to abstain from vaginal intercourse and bathtub use. The patient confirmed understanding of these instructions. Discharge Instructions: The patient was instructed to schedule a follow-up appointment in 2 weeks for further evaluation and management. Please note that this note was generated using a voice recognition program, and errors may have occurred during steam oven operator. [id number] of cervix including upper vagina with biopsy and ECC Procedure code (CPT) selection complete Assessment & Plan Assessment & Plan (1) LGSIL on Pap smear of cervix: Code(s): R87.612 - Low grade squamous intraepithelial lesion on cytologic smear of cervix (LGSIL) Category: Medical Plan: Discussed with the patient the result of her abnormal pap, its significance, risk of progression, persistence, and regression. the false positive/negative rate of a Pap smear as a screening test in detecting cervical cancer and the indication for a diagnostic test -colposcopy, biopsy, endocervical curettage. The patient verbalized understanding and agreed with the plan, all questions answered. Colpo/biopsy/ECC done, see procedure note. Orders: Orders AMB Colposcopy Today R87.612 - Low grade squamous intraepithelial lesion on cytologic smear of cervix (LGSIL) Coding Level of Care Code Procedure Only Diagnoses LGSIL on Pap smear of cervix R87.612 CPT Codes Colposcopy - CPT: 74058-Gbjdqejvd of cervix including upper vagina with biopsy and ECC ([id number])
== END 2024-05-15 15:27 | disposition home or self-care (01) ==
LOC: HO.HWS 11:04
PROVIDERS: PCP Internal Medicine; Visit Provider Obstetrics & Gynecology
DX: R87.612 Low grade squamous intraepithelial lesion on cytologic smear of cervix (LGSIL) (principal)
CPT/HCPCS: 57454

== ENCOUNTER → 2024-05-15 12:00 | Outpatient (BNV) | payer MEDICAID, SELFPAY | PROVIDERS: Visit Provider Internal Medicine | DX: Z12.31 Encounter for screening mammogram for malignant neoplasm of breast (principal) | CPT/HCPCS: 77063; 77067 ==

== ENCOUNTER 2024-05-15 12:08 | Outpatient (REF) | payer MEDICAID, SELFPAY | END 2024-05-15 12:09 | disposition home or self-care (01) | LOC: HO.LNP 12:08 | PROVIDERS: Visit Provider Obstetrics & Gynecology | DX: R87.612 Low grade squamous intraepithelial lesion on cytologic smear of cervix (LGSIL) (principal) | CPT/HCPCS: 88305 ==

== ENCOUNTER 2024-05-23 13:59 | Inpatient (IN) | payer MEDICAID, SELFPAY ==
--- NOTE | ~2024-05-23 | CT_ITS ---
EXAMINATION: CT ABDOMEN AND PELVIS WITHOUT CONTRAST CLINICAL INFORMATION: Left flank pain. UTI. COMPARISON: April 19, 2024. TECHNIQUE: Multidetector volumetric imaging was performed from the superior aspect of the liver through the pubic symphysis. Sagittal and coronal reformatted images were obtained on the technologist's workstation. This CT examination was performed using dose optimization techniques as appropriate, variously including the following: *Automated exposure control *Adjustment of mA and/or kV according to patient size (this includes techniques or standardized protocols for targeted exams where dose is matched to indication/reason for exam; i.e. extremities or head) *Use of iterative reconstruction technique. DLP: 586 mGy centimeter. FINDINGS: Inadequate evaluation of the intra-abdominal organs and vascular structures due to lack of IV contrast. LUNG BASES: Calcified pulmonary nodules, left lower lung lobe likely granuloma. Nonspecific patchy pulmonary groundglass. LIVER, GALLBLADDER, AND BILIARY TREE: Liver measures 15 cm. No intrahepatic biliary ductal dilatation. Status post laparoscopic cholecystectomy. Common bile duct measures 5 mm. PANCREAS: No peripancreatic fluid collections. No main pancreatic ductal dilatation. SPLEEN: 9 cm. ADRENAL GLANDS: No nodular lesions. KIDNEYS AND URETERS: Right kidney: 1 mm punctate calculus in the lower pole of the pelvicalyceal system. No hydronephrosis. No perinephric edema pattern or fluid collections. Left kidney: Punctate calcification in the midportion/lower pole junction. There is a cluster of 2.5 mm calculi in the lower pole of the pelvicalyceal system. No hydronephrosis. No perinephric edema pattern or fluid collections. There is a 5 cm exophytic fluid density lesion in the upper pole. BLADDER: Fluid-filled. GASTROINTESTINAL TRACT: No intestinal obstruction pattern. No ascites. No pneumatosis intestinalis. Appendix is normal. No pneumoperitoneum. ABDOMINAL WALL: No gross umbilical hernia. LYMPH NODES: Nonspecific prominent lymph nodes, retroperitoneum. VASCULAR: Calcified plaques abdominal aorta wall without aneurysm. PELVIC VISCERA: Limited evaluation demonstrated calcifications in the uterus. OSSEOUS STRUCTURES: Multilevel thoracolumbar spondylosis more conspicuous at L5-S1. No acute fracture or dislocation. Osteoarthrosis coxofemoral joints more conspicuous on the right side. CT/CT abdomen pelvis wo IV con IMPRESSION: Nonobstructing nephrolithiasis, bilaterally. Exophytic cystic lesion, upper pole left kidney. Probable calcified uterine fibroid. Fleischner guidelines were followed. Electronically signed by: Sukh Becker MD 05/25/2024 12:59 PM [facility]OR HARDY
--- NOTE | ~2024-05-23 | XR_ITS ---
EXAMINATION: XR CHEST CLINICAL INFORMATION: L sided chest pain COMPARISON: July 28, 2023 TECHNIQUE: 2 views of the chest were obtained. FINDINGS: No consolidation pleural effusion or pneumothorax. Cardiomediastinal silhouette demonstrates a tortuous thoracic aorta. Multilevel thoracic and upper lumbar spondylosis. Vascular clips right upper quadrant abdomen and likely laparoscopic cholecystectomy. XR/XR chest 2V IMPRESSION: No acute airspace disease. Electronically signed by: Sukh Becker MD 05/23/2024 03:47 PM EST
--- NOTE | 2024-05-23 14:09 | ECG_ITS ---
Test Reason : CHEST PAIN Blood Pressure : */* mmHG Vent. Rate : 84 BPM Atrial Rate : 84 BPM P-R Int : 144 ms QRS Dur : 86 ms QT Int : 384 ms P-R-T Axes : 56 -59 55 degrees QTcB Int : 453 ms Normal sinus rhythm Left anterior fascicular block Nonspecific ST abnormality Abnormal ECG When compared with ECG of 18-Jul-2023 10:29, No significant change was found Referred By: Abida Serrano Electronically Signed By: Dain Bill
[2024-05-23 14:47] VITALS: BP 128/85; PULSE 89; RESP 16; TEMP 36.5; O2SAT 100; BMI 34.5
--- NOTE | 2024-05-23 14:49 | ED.GENADULT ---
HPI - General Adult General Chief complaint: Upper Respiratory Symptoms Stated complaint: Chest pain, headache/body aches Time Seen by Provider: 05/23/24 21:07 Source: patient Mode of arrival: ambulatory Limitations: no limitations History of Present Illness ED Provider: Dr. Violeta Valentine HPI narrative: Patient comes to the emergency room complaining of 1 week of cough, diffuse body aches, nausea vomiting and diarrhea and left-sided flank pain. Patient states that she is able to keep up with fluids. Patient states that last week for several days she did not have any heat in her house, it was very cold and that is when all her symptoms started. Patient denies any chest pain or shortness of breath. Patient states that she has dysuria, no hematuria, worsening left-sided flank pain.. Denies fever chills Related Data Home Medications ?Medication ?Instructions ?Recorded ?Confirmed elviteg 150 mg-cob 150 mg-emtricit 1 tab PO DAILY 07/17/23 05/12/24 200 mg-tenofo alafenam 10 mg tablet (Genvoya) albuterol sulfate 90 mcg/actuation 2 puff inhalation QID PRN asthma 11/19/23 05/12/24 aerosol inhaler (Ventolin HFA) ketotifen fumarate 0.025 % (0.035 2 drp ophthalmic (eye) DAILY 11/19/23 05/12/24 %) eye drops rosuvastatin 40 mg tablet 40 mg PO BEDTIME 11/19/23 05/12/24 losartan 100 mg tablet 100 mg PO DAILY 04/05/24 05/12/24 triamcinolone acetonide 0.5 % 1 appl topical BID 04/05/24 05/12/24 topical cream linaclotide 145 mcg capsule 145 mcg PO DAILY 04/20/24 05/12/24 (Linzess) ondansetron 4 mg disintegrating 4 mg PO Q6H PRN nausea and vomiting 04/20/24 05/12/24 tablet Previous Rx's ?Medication ?Instructions ?Recorded albuterol sulfate 2.5 mg/3 mL 2.5 mg (3 mL) inhalation Q4-6H PRN 07/19/23 (0.083 %) solution for nebulization Shortness Of Breath #75 mL dicyclomine 20 mg tablet 20 mg PO TID #90 tabs 07/19/23 furosemide 20 mg tablet 20 mg PO DAILY 30 days #30 tabs 07/19/23 guaifenesin 600 mg tablet, 600 mg PO Q12H PRN cough 3 days #6 07/19/23 extended release 12 hr (Mucinex) tabs meclizine 12.5 mg tablet 12.5 mg PO TID PRN Vertigo #12 tabs 07/19/23 meloxicam 15 mg tablet 15 mg PO DAILY #30 tabs 07/19/23 sertraline 100 mg tablet 100 mg PO DAILY PRN mood #30 tabs 07/19/23 zolpidem 10 mg tablet 10 mg PO BEDTIME #30 tabs 07/19/23 loratadine 10 mg tablet 10 mg PO DAILY #30 tabs 07/20/23 naproxen 500 mg tablet 500 mg PO BID PRN pain 7 days #14 07/28/23 tabs omeprazole 20 mg capsule,delayed 20 mg PO DAILY #30 caps 11/19/23 release simethicone 180 mg capsule 180 mg PO QID 30 days #120 caps 11/19/23 hydrocortisone 1 % topical cream 1 appl topical BID PRN itching 12/06/23 (Cortisone (hydrocortisone)) #28.35 grams pyridoxine (vitamin B6) 100 mg 100 mg PO DAILY kidney stones 90 12/28/23 tablet days #90 tabs fluticasone furoate 200 1 ea inhalation DAILY #1 ea 02/15/24 mcg-vilanterol 25 mcg/dose inhalation powder (Breo Ellipta) umeclidinium 62.5 mcg/actuation 1 inh inhalation DAILY #1 ea 02/15/24 blister powder for inhalation (Incruse Ellipta) fosfomycin tromethamine 3 gram 1 packet PO Q OTHER DAY 1 dose #1 04/21/24 oral packet ea montserrat (Ultra-Light Rollator misc) #1 ea 04/21/24 Allergies Allergy/AdvReac Type Severity Reaction Status Date / Time shellfish derived Allergy Intermediate HIVES, N/V Verified 05/23/24 14:48 Review of Systems Review of Systems: Constitutional : No Weight loss, No Fever, No Chills, No Night Sweats, complaining of fatigue and generalized malaise ENT/Mouth : No Hearing loss, No Ear Pain, complaining of Nasal Congestion, No Sinus Pain, No Hoarseness, No sore throat, No Rhinorrhea, No Swallowing Difficulty Eyes: No Eye Pain, No Swelling, No Redness, No Foreign Body, No Discharge, No Vision Changes Cardiovascular : No Chest Pain, No SOB, No Dyspnea on Exertion, No Orthopnea, No Edema, No Palpitations Respiratory : Complaining of dry cough,, No Wheezing, No Smoke Exposure, No Dyspnea Gastrointestinal : No Nausea, No Vomiting, No Diarrhea, No Constipation, No abdominal Pain, No Hematochezia, No Melena Genitourinary : no irregular bleeding, complaining of Dysuria, No Urinary Frequency, No Hematuria, No Urinary Incontinence, No Urgency, complaining of left Flank Pain, No Urinary Flow Changes, No Hesitancy Musculoskeletal : No joint pain, No Myalgias, No Joint Swelling Skin : No Skin Lesions, No rash Neuro : No Weakness, No Numbness, No Paresthesias, No Loss of Consciousness, No Dizziness, No Headache Psych : No Anxiety/Panic, No Depression, No SI/HI/AH/VH, No Social Issues, Heme/Lymph: No Bruising, No Bleeding,No Lymphadenopathy Endocrine : No Polyuria, No Polydipsia, No Temperature Intolerance [facility] Past Medical History 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 HIV (human immunodeficiency virus infection) History of blood transfusion Anemia Hx of renal calculi Difficulty swallowing GERD (gastroesophageal reflux disease) Hepatitis Depression Sleep apnea Asthma Elevated cholesterol HTN (hypertension) Surgical History Hx of colonoscopy Hx of cystoscopy Hx of dilation and curettage Hx of section Hx of reduction mammoplasty Hx of tubal ligation Hx of cholecystectomy Family History Family History Mother Breast cancer Father Heart problem Sister Bone cancer Family/Other Diabetes Social History Social History Household Members: Family Housing: Apartment Are you a primary home care attendant to a significant other at home: No Do you presently have visiting nurse or other home services: No Alcohol intake: current Alcohol intake frequency: holidays/special occasions only Alcohol type: wine Patient Tobacco Use Status: Former Tobacco user Tobacco use type: Cigarette Cigarette Packs Per Day: 2 Cigarettes Per Day: 40.0 Years Smoked: 40 e-Cigarette/Vaping Use: Never Used Second Hand Smoke Exposure: No Substance Use Type: Former Substance User Advance Directives: No Advance Directives Information Provided: No service: No Sexual orientation: Straight/Heterosexual Gender identity: Female Physical Exam ED Vital Signs: Vital Signs - 24 hr 05/23/24 14:47 05/23/24 20:17 05/23/24 21:25 Temperature 97.7 F 98.5 F Pulse Rate 89 84 72 Respiratory Rate 16 14 Blood Pressure 128/85 133/80 134/67 Pulse Oximetry 100 100 Oxygen Delivery Method Room Air Room Air 05/23/24 21:26 05/23/24 21:26 Temperature Pulse Rate 78 68 Respiratory Rate Blood Pressure 127/69 131/66 Pulse Oximetry Oxygen Delivery Method BMI result Body Mass Index 34.5 Const Other: Appearance: Alert. Oriented X3. No acute distress. Eyes: Pupils equal, round and reactive to light. ENT: Pharynx normal. Neck: Normal inspection. Neck supple. No lymph nodes noted. No crepitus CVS: Normal heart rate and rhythm. Pulses normal. Normal S1 and S2 Respiratory: No respiratory distress. Breath sounds normal. No Wheezing. No rales Abdomen: Soft and nontender. No rigidity. No distention. Back: Mild pain to palpation over left flank and left paraspinal muscles, no thoracic or lumbar spine tenderness Skin: Skin warm and dry. Normal skin color. Normal skin turgor. Extremities: No lower extremity edema. No Lacerations. No Rash Neuro: Oriented X 3. No motor deficit. No sensory deficit. Moving all extremities. No slurred speech. CN 2 through 12 grossly intact Psych: calm, cooperative, normal affect Course Course Course Narrative: This is a Rapid Medical Examination (RME) performed by Joselin Serrano PA-C in triage. Full HPI, ROS, assessment and treatment plan per primary provider in the Main ED. 64 yo female here for eval of chills, cough, left sided chest pain, diarrhea, abd pain x1 wk. no known sick contacts. taking aleve, last dose yest. Plan: labs, ekg, viral swabs Medical Decision Making Medical Decision Making [facility] Narrative: My interpretation of labs: No significant abnormality in patient's hematology, chemistry, normal troponin, serology negative for flu COVID RSV Chest x-ray no abnormality Urinalysis is positive for UTI. Patient gross ESBL UTI. Only sensitive to ertapenem or gentamicin. Per patient's medical records, last time that she has a UTI, she was treated successfully with ertapenem Patient has not had any episodes of hypotension Patient has blood cultures and lactic acid pending At this time, 22:25, sepsis is not suspected. Patient being treated with IV fluids and ertapenem I discussed the patient with Dr. Garcia from the Medicine team, patient being admitted Differential Diagnosis Differential Diagnoses: The differential diagnosis associated with the presentation includes (COVID, influenza, UTI, viral syndrome) Admission/Observation Consideration of admission/observation: Escalation of care including admission/observation considered Consult Healthcare Provider Management of the patient was discussed with: Hospitalist Lab Data [facility] Lab Attestation statement: I reviewed the patient's lab results. 05/23/24 15:05 05/23/24 15:05 Labs: Lab Results 05/23/24 05/23/24 Range/Units 15:05 21:44 WBC 8.0 (4.8-10.8) X10*3/uL RBC 4.23 (4.20-5.50) X10*6/uL Hgb 12.3 (12.0-16.0) g/dl Hct 37.1 (37.0-47.0) % MCV 87.7 (80.0-98.0) fL MCH 29.1 (27.0-33.0) pg MCHC 33.2 (31.0-35.0) g/dl RDW 12.8 (11.0-16.0) % Plt Count 182 (160-400) X10*3/uL MPV 11.1 (9.4-12.3) fL Immature Gran % (Auto) 0.3 (0.0-0.4) % Neut % (Auto) 80.1 H (45-73) % Lymph % (Auto) 12.5 L (20-40) % [place] % (Auto) 6.5 (2-11) % Eos % (Auto) 0.5 (0-4) % Baso % (Auto) 0.1 (0-2) % Lymph # (Auto) 1.0 L (1.2-4.9) X10*3/uL [place] # (Auto) 0.5 (0.1-1.2) X10*3/uL Eos # (Auto) 0.0 (0.0-0.4) X10*3/uL Baso # (Auto) 0.0 (0.0-0.2) X10*3/uL Abs Immat Gran (auto) 0.02 (0.00-0.03) X10*3/uL Absolute Neuts (auto) 6.4 (2.0-8.3) x10*3/uL Absolute Nucleated RBC 0.000 (0.0-0.012) X10*3/uL Nucleated RBC % (auto) 0.0 (0.0-0.2) /100WBC Sodium 142 (135-145) mmol/L Potassium 3.7 (3.3-5.1) mmol/L Chloride 107 (96-108) mmol/L Carbon Dioxide 27 (22-29) mmol/L Anion Gap 12 (12-20) BUN 16 (9-16) mg/dL Creatinine 0.95 (0.5-1.4) mg/dL Estim Creat Clear Calc 63.8 Estimated GFR 59 Random Glucose 108 (60-115) mg/dL Calcium 9.4 (8.4-10.2) mg/dL Magnesium 1.8 (1.6-2.6) mg/dL Total Bilirubin 0.8 (0.0-1.0) mg/dL AST 23 (5-31) U/L ALT 26 (0-31) U/L Alkaline Phosphatase 73 (39-117) U/L Troponin I High Sens < 2.7 (<3.5-17.0) ng/L Total Protein 8.4 H (6.5-8.0) g/dL Albumin 4.1 (3.5-5.0) g/dL Urine Color Yellow Urine Appearance Cloudy Urine pH 6.5 (5.0-9.0) Ur Specific [place] 1.015 (1.005-1.025) Urine Protein Trace (Neg-Trace) mg/dL Urine Glucose (UA) Negative (Negative) mg/dL Urine Ketones Negative (Negative) mg/dL Urine Blood Small (1+) H (Negative) Urine Nitrite Positive H (Negative) Ur Leukocyte Esterase Large (3+) H (Negative) Urine RBC 6-10 H (0-2) /HPF Urine WBC >50 H (0-5) /HPF Ur Squamous Epith Cells 3-5 (0-2) /HPF Urine Bacteria 4+ (None Seen) Hyaline Casts 0-2 (0-2) /LPF Influenza Type A (PCR) NEGATIVE (Negative) Influenza Type B (PCR) NEGATIVE (Negative) RSV RNA Qual (PCR) NEGATIVE (Negative) SARS-CoV-2 RNA (RT-PCR) NEGATIVE (Negative) Independent Interpretation I performed an independent interpretation of an: Plain X-Ray Radiology Impression Discussion of test interpretation with radiology: I have reviewed the radiologist's reading. Radiologist Impression: No consolidation pleural effusion or pneumothorax. Cardiomediastinal silhouette demonstrates a tortuous thoracic aorta. Multilevel thoracic and upper lumbar spondylosis. Vascular clips right upper quadrant abdomen and likely laparoscopic cholecystectomy. XR/XR chest 2V IMPRESSION: No acute airspace disease. Critical Care Time Critical Care Time Critical Care Time: Yes Total Critical Care Time: 60 Attestation: I have personally provided critical care time. Time includes review of lab data, radiology results, discussion with consultants, and monitoring for potential decompensation. Intervention performed as documented. Discharge Plan Discharge Clinical Impression: Pyelonephritis, Upper respiratory infection, viral Patient Disposition: Admitted As Inpatient Prescriptions: No Action hydrocortisone [Cortisone (hydrocortisone)] 1 % cream 1 appl topical BID PRN (Reason: itching) Qty: 28.35 0RF Genvoya [id number] mg tablet 1 tab PO DAILY Rx Instructions: with breakfast guaifenesin [Mucinex] 600 mg tablet extended release 12hr 600 mg PO Q12H PRN (Reason: cough) 3 Days Qty: 6 0RF albuterol sulfate 2.5 mg /3 mL (0.083 %) Solution For Nebulization 2.5 mg INHALATION Q4-6H PRN (Reason: Shortness Of Breath) Qty: 75 0RF meloxicam 15 mg tablet 15 mg PO DAILY Qty: 30 0RF sertraline 100 mg tablet 100 mg PO DAILY PRN (Reason: mood) Qty: 30 0RF meclizine 12.5 mg tablet 12.5 mg PO TID PRN (Reason: Vertigo) Qty: 12 0RF dicyclomine 20 mg tablet 20 mg PO TID Qty: 90 0RF furosemide 20 mg tablet 20 mg PO DAILY 30 Days Qty: 30 6RF zolpidem 10 mg tablet 10 mg PO BEDTIME Qty: 30 0RF loratadine 10 mg Tablet 10 mg PO DAILY Qty: 30 0RF naproxen 500 mg tablet 500 mg PO BID PRN (Reason: pain) 7 Days Qty: 14 0RF losartan 100 mg tablet 100 mg PO DAILY triamcinolone acetonide 0.5 % cream 1 appl topical BID ondansetron 4 mg tablet,disintegrating 4 mg PO Q6H PRN (Reason: nausea and vomiting) Linzess 145 mcg capsule 145 mcg PO DAILY fosfomycin tromethamine 3 gram packet 1 packet PO Q OTHER DAY Qty: 1 0RF (DME) Ultra-Light Rollator Misc See Rx Instructions .Route Qty: 1 0RF Rx Instructions: As directed pyridoxine (vitamin B6) 100 mg tablet 100 mg PO DAILY 90 Days Qty: 90 3RF Incruse Ellipta 62.5 mcg/actuation blister with device 1 inh inhalation DAILY Qty: 1 6RF fluticasone furoate-vilanterol [Breo Ellipta] 200-25 mcg/dose blister with device 1 ea inhalation DAILY Qty: 1 6RF albuterol sulfate [Ventolin HFA] 90 mcg/actuation HFA aerosol inhaler 2 puff inhalation QID PRN (Reason: asthma) rosuvastatin 40 mg tablet 40 mg PO BEDTIME ketotifen fumarate 0.025 % (0.035 %) drops 2 drp ophthalmic (eye) DAILY omeprazole 20 mg capsule,delayed release(DR/EC) 20 mg PO DAILY Qty: 30 6RF simethicone 180 mg capsule 180 mg PO QID 30 Days Qty: 120 6RF Rx Instructions: after meals Print Language: Scottish
[2024-05-23 15:09] LABS: MANUAL DIFF FLAG NO
[2024-05-23 15:12] LABS: Basophils Percent Auto 0.1 % (0-2); Eosinophils Percent Auto 0.5 % (0-4); Hematocrit 37.1 % (37.0-47.0); Hemoglobin 12.3 g/dl (12.0-16.0); Imm Gran Abs Auto 0.02 X10*3/uL (0.00-0.03); Imm Gran Pct Auto 0.3 % (0.0-0.4); Lymphocytes Percent Auto 12.5 % (20-40); Mean Corpuscular HGB Conc 33.2 g/dl (31.0-35.0); Mean Corpuscular Hemoglobin 29.1 pg (27.0-33.0); Mean Corpuscular Volume 87.7 fL (80.0-98.0); Mean Platelet Volume 11.1 fL (9.4-12.3); Monocytes Absolute Auto 0.5 X10*3/uL (0.1-1.2); Monocytes Percent Auto 6.5 % (2-11); Neutrophils Absolute Auto 6.4 x10*3/uL (2.0-8.3); Neutrophils Percent Auto 80.1 % (45-73); Platelet Count 182 X10*3/uL (160-400); Red Blood Count 4.23 X10*6/uL (4.20-5.50); Red Cell Distribution Width 12.8 % (11.0-16.0)
[2024-05-23 15:47] LABS: Alanine Aminotransferase 26 U/L (0-31); Albumin Level 4.1 g/dL (3.5-5.0); Anion Gap 12 (12-20); Aspartate Amino Transferase 23 U/L (5-31); Bilirubin Total 0.8 mg/dL (0.0-1.0); Blood Urea Nitrogen 16 mg/dL (9-16); Calcium 9.4 mg/dL (8.4-10.2); Carbon Dioxide 27 mmol/L (22-29); Chloride 107 mmol/L (96-108); Creatinine Clr Calc Pharmacy 63.8; Estimated Glomerular Filt Rate 59; Glucose Random 108 mg/dL (60-115); Magnesium 1.8 mg/dL (1.6-2.6); Potassium 3.7 mmol/L (3.3-5.1); Sodium 142 mmol/L (135-145); Total Protein 8.4 g/dL (6.5-8.0); Troponin-I High Sensitivity < 2.7 ng/L (<3.5-17.0)
[2024-05-23 15:49] LABS: Influenza A PCR NEGATIVE (Negative); Influenza B PCR NEGATIVE (Negative); Resp Syncy Virus RNA Qual PCR NEGATIVE (Negative); SARS COV2 PCR INHOUSE NEGATIVE (Negative)
[2024-05-23 16:06] LABS: Alkaline Phosphatase 73 U/L (39-117)
[2024-05-23 20:17] VITALS: BP 133/80; PULSE 84; RESP 14; TEMP 36.9; O2SAT 100
--- OUTSIDE RECORDS SUMMARY | 2024-05-23 20:25 | XMS_ITS | Encounter Summary ---
Author Organization [facility] Address [address] [place] [address] Care Team Providers Care Scanner Operator Name Role Phone Unavailable Primary Care [...]
--- OUTSIDE RECORDS SUMMARY | 2024-05-23 20:25 | XMS_ITS | Encounter Summary ---
Author Organization [employer] Address [address] [place] [address] Care Team Providers Care Managing Partner Name Role Phone Unavailable Primary Care Provider Unavailabl e Reason for Visit * Reason Onset Date Comments rs no show appt 04/13/2024 Encounter Details Date Type Department Care Team ([facility] st Contact Info) Description 04/13/2024 Telephone [facility] [address] [place] [address] Ruel Suresh rs no show appt Social [...]
[2024-05-23 21:25] VITALS: BP 134/67; PULSE 72
[2024-05-23 21:26] VITALS: BP 127/69; BP 131/66; PULSE 68; PULSE 78
[2024-05-23 21:52] LABS: Appearance Urine Cloudy; Color Urine Yellow; Glucose Urine UA Negative (Negative); Leukocyte Esterase Urine Large (3+) (Negative); Nitrite Urine Positive (Negative); PH 6.5 (5.0-9.0); Specific Gravity - Urine 1.015 (1.005-1.025); UMIC TRIGGER UACC YES; Urine Blood Small (1+) (Negative); Urine Ketones Negative (Negative); Urine Protein Trace mg/dL (Neg-Trace)
[2024-05-23 21:57] LABS: Bacteria Urine 4+ (None Seen); Hyaline Casts Urine 0-2 /LPF (0-2); UACC Culture Trigger YES; WBC Urine >50 /HPF (0-5)
[2024-05-23 22:35] VITALS: BP 139/63; PULSE 79; RESP 16; TEMP 37.1; O2SAT 94
[2024-05-23] MEDS: Ertapenem Sodium 1 GM VIAL IVPUSH (22:51)
[2024-05-23] MEDS: 0.9 % Sodium Chloride 1,000 ML 999 ML IVCONT (22:51)
[2024-05-23 22:59] LABS: Lactic Acid 0.7 mmol/L (0.5-2.0)
--- NOTE | 2024-05-23 23:59 | PM.IMHP ---
History of Present Illness Date of Service: 05/23/24 Attending physician on admission: Gadiel Garcia Chief Complaint: Left flank pain, nausea, vomiting x10 days Patient is a 64-year-old speaking female with underlying history of ESBL UTI, asthma, anemia, arthritis, HIV, hypertension, GERD, hyperlipidemia, anxiety/ depression who presents to the emergency room from home complaining of worsening left flank pain, generalized / diffuse body aches with associated nausea, vomiting and diarrhea for the last 1 week. The left sided flank pain has become increasingly severe and she now rates it at a 10/10 at its worst and this is what prompted her to present to the emergency room today. Initial workup done in the emergency room included a urinalysis that revealed presence of > 50 wbc/hpf with 4+ bacteria, positive urine nitrites and large leukocyte esterase. An assessment of left-sided pyelonephritis was made and given her history of ESBL UTI she was started on intravenous Ertapenem and admission requested for continued IV antibiotics as we await her urine cultures to be resulted. She otherwise has no other complaints. 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 HIV (human immunodeficiency virus infection) History of blood transfusion Anemia Hx of renal calculi Difficulty swallowing GERD (gastroesophageal reflux disease) Hepatitis Depression Sleep apnea Asthma Elevated cholesterol HTN (hypertension) Family History Mother Breast cancer Father Heart problem Sister Bone cancer Family/Other Diabetes Surgical History Hx of colonoscopy Hx of cystoscopy Hx of dilation and curettage Hx of section Hx of reduction mammoplasty Hx of tubal ligation Hx of cholecystectomy Social History Household Members: Family Housing: Apartment Are you a primary care transitions manager to a significant other at home: No Do you presently have visiting nurse or other home services: No Alcohol intake: current Alcohol intake frequency: holidays/special occasions only Alcohol type: wine Patient Tobacco Use Status: Former Tobacco user Tobacco use type: Cigarette Cigarette Packs Per Day: 2 Cigarettes Per Day: 40.0 Years Smoked: 40 e-Cigarette/Vaping Use: Never Used Second Hand Smoke Exposure: No Substance Use Type: Former Substance User Advance Directives: No Advance Directives Information Provided: No service: No Sexual orientation: Straight/Heterosexual Gender identity: Female Meds Allergies Allergy/AdvReac Type Severity Reaction Status Date / Time shellfish derived Allergy Intermediate HIVES, N/V Verified 05/23/24 14:48 Home Medications ?Medication ?Instructions ?Recorded ?Confirmed ?Last Taken ?Type elviteg 150 mg-cob 150 mg-emtricit 1 tab PO DAILY 07/17/23 05/12/24 04/19/24 History 200 mg-tenofo alafenam 10 mg tablet (Genvoya) albuterol sulfate 90 mcg/actuation 2 puff inhalation QID PRN asthma 11/19/23 05/12/24 04/19/24 History aerosol inhaler (Ventolin HFA) ketotifen fumarate 0.025 % (0.035 2 drp ophthalmic (eye) DAILY 11/19/23 05/12/24 04/19/24 History %) eye drops rosuvastatin 40 mg tablet 40 mg PO BEDTIME 11/19/23 05/12/24 04/19/24 History losartan 100 mg tablet 100 mg PO DAILY 04/05/24 05/12/24 04/19/24 History triamcinolone acetonide 0.5 % 1 appl topical BID 04/05/24 05/12/24 04/19/24 History topical cream linaclotide 145 mcg capsule 145 mcg PO DAILY 04/20/24 05/12/24 04/19/24 History (Linzess) ondansetron 4 mg disintegrating 4 mg PO Q6H PRN nausea and vomiting 04/20/24 05/12/24 04/19/24 History tablet Physical Exam Vital Signs and Narrative: Vital Signs: Last Vital Signs Temp 98.8 F 05/23/24 22:35 Pulse 79 05/23/24 22:35 Resp 16 05/23/24 22:35 BP 139/63 05/23/24 22:35 Pulse Ox 94 05/23/24 22:35 O2 Del Method Room Air 05/23/24 22:35 BMI result Body Mass Index 34.5 General: Well nourished. Awake and alert. In pain but not in any obvious respiratory distress. Psychiatric: Pleasant, well kempt, cooperative with normal though process, speech,cognition and affect. HEENT: Normocephalic, atraumatic. No pallor or jaundice. Moist oral mucus membranes Neck: Supple. No JVD Lungs: Clear to auscultation bilaterally. No rales, rhonchi or wheezes Heart: RRR. Normal s1/s2. No murmurs, rubs or gallops. No peripheral edema. Abdomen: Obese, flabby, soft, with left CVA tenderness. Normoactive bowel sounds. No visceromegaly. Genitourinary: Deferred Back/Spine/Pelvis: Deferred Skin: Warm, dry, well perfused. Normal turgor. No mottling. Normal capillary refill (< 2 seconds). Neurologic: Awake and alert. Intact speech & cognition. Normal gait & balance. CN II-XII grossly normal. Extremities: Normal muscle bulk, tone and power. No obvious deformities. No peripheral edema. Good peripheral pulses. Results Labs 05/23/24 15:05 05/23/24 15:05 Labs: Laboratory Results - last 24 hr 05/23/24 05/23/24 05/23/24 15:05 21:44 22:40 MCV 87.7 MCH 29.1 MCHC 33.2 RDW 12.8 Plt Count 182 MPV 11.1 Immature Gran % (Auto) 0.3 Neut % (Auto) 80.1 H Lymph % (Auto) 12.5 L [place] % (Auto) 6.5 Eos % (Auto) 0.5 Baso % (Auto) 0.1 Lymph # (Auto) 1.0 L [place] # (Auto) 0.5 Eos # (Auto) 0.0 Baso # (Auto) 0.0 Abs Immat Gran (auto) 0.02 Absolute Neuts (auto) 6.4 Absolute Nucleated RBC 0.000 Nucleated RBC % (auto) 0.0 Anion Gap 12 Estim Creat Clear Calc 63.8 Estimated GFR 59 Random Glucose 108 Lactic Acid 0.7 Calcium 9.4 Magnesium 1.8 Total Bilirubin 0.8 AST 23 ALT 26 Alkaline Phosphatase 73 Troponin I High Sens < 2.7 Total Protein 8.4 H Albumin 4.1 Urine Color Yellow Urine Appearance Cloudy Urine pH 6.5 Ur Specific [place] 1.015 Urine Protein Trace Urine Glucose (UA) Negative Urine Ketones Negative Urine Blood Small (1+) H Urine Nitrite Positive H Ur Leukocyte Esterase Large (3+) H Urine RBC 6-10 H Urine WBC >50 H Ur Squamous Epith Cells 3-5 Urine Bacteria 4+ Hyaline Casts 0-2 Influenza Type A (PCR) NEGATIVE Influenza Type B (PCR) NEGATIVE RSV RNA Qual (PCR) NEGATIVE SARS-CoV-2 RNA (RT-PCR) NEGATIVE Imaging Radiologist's Impressions: Impressions Chest X-Ray 05/23/24 15:20 IMPRESSION: No acute airspace disease. Electronically signed by: Sukh Becker MD 05/23/2024 03:47 PM [facility] Assessment and Plan (1) Pyelonephritis: Status: Acute (2) HIV (human immunodeficiency virus infection): Qualifiers: HIV symptom status: asymptomatic, with no history of HIV-related illness Qualified Code(s): Z21 - Asymptomatic human immunodeficiency virus [HIV] infection status Status: Chronic (3) HTN (hypertension): Qualifiers: Hypertension type: primary hypertension Qualified Code(s): I10 - Essential (primary) hypertension Status: Chronic (4) Elevated cholesterol: Status: Chronic Plan Patient is a 64-year-old speaking female with underlying history of ESBL UTI, asthma, anemia, arthritis, HIV hypertension, TORSTEN, hyperlipidemia anxiety/ depression here with 1. Pyelonephritis - she presents with left-sided flank pain with the other constitutional symptoms including a diffuse body aches, nausea, vomiting, diarrhea - urinalysis with findings concerning for UTI with > 50 WBC/HPF, 4+ bacteria, positive urine nitrites and large leukocyte esterase - her presentation is concerning for left-sided pyelonephritis - given underlying history of ESBL UTI, will admit for IV antibiotics - continue IV ertapenem that was already started in the emergency room - follow-up on urine cultures 2. HIV - asymptomatic with no HIV related illness - continue Genvoya 3. Essential hypertension - BP control is fair - continue losartan 4. Hyperlipidemia - continue rosuvastatin 5. GERD - asymptomatic - continue omeprazole 6. Anxiety/Depression - continue sertraline 7. Insomnia - continue Ambien Total time managing care of this patient today: 75 minutes. Quality Stroke Does the patient have a stroke diagnosis?: No VTE Prior VTE?: No VTE Risk Level:: Medical - moderate - high VTE Device Contraindication: Treatment Not Indicated VTE Drug Contraindication: N/A - Med Ordered
[2024-05-24] VITALS (7 sets, daily range): BP systolic 116–133; BP diastolic 51–97; PULSE 61–78; RESP 12–18; TEMP 36.6–37.7; O2SAT 95–99; BMI 36.3
[2024-05-24] MEDS: Dextrose 5 % and 0.9 % NaCl 1,000 ML 100 ML IVCONT ×2 (00:26→10:49)
[2024-05-24] MEDS: oxyCODONE HCl Immed Release 5 MG TABLET PO ×2 (00:32→18:44)
[2024-05-24] MEDS: Enoxaparin Sodium 40 MG/0.4 ML SYRINGE SUBCUT ×2 (00:32→21:49)
[2024-05-24 04:56] LABS: MANUAL DIFF FLAG NO
[2024-05-24 04:57] LABS: Basophils Percent Auto 0.1 % (0-2); Eosinophils Percent Auto 0.6 % (0-4); Hematocrit 30.8 % (37.0-47.0); Hemoglobin 10.3 g/dl (12.0-16.0); Imm Gran Abs Auto 0.01 X10*3/uL (0.00-0.03); Imm Gran Pct Auto 0.1 % (0.0-0.4); Lymphocytes Absolute Auto 1.1 X10*3/uL (1.2-4.9); Lymphocytes Percent Auto 16.5 % (20-40); Mean Corpuscular HGB Conc 33.4 g/dl (31.0-35.0); Mean Corpuscular Hemoglobin 29.5 pg (27.0-33.0); Mean Corpuscular Volume 88.3 fL (80.0-98.0); Mean Platelet Volume 10.5 fL (9.4-12.3); Monocytes Absolute Auto 0.6 X10*3/uL (0.1-1.2); Monocytes Percent Auto 8.8 % (2-11); Neutrophils Percent Auto 73.9 % (45-73); Platelet Count 141 X10*3/uL (160-400); Red Blood Count 3.49 X10*6/uL (4.20-5.50); Red Cell Distribution Width 12.7 % (11.0-16.0); White Blood Count 6.7 X10*3/uL (4.8-10.8)
[2024-05-24 05:19] LABS: Anion Gap 9 (12-20); Blood Urea Nitrogen 12 mg/dL (9-16); Calcium 8.1 mg/dL (8.4-10.2); Carbon Dioxide 23 mmol/L (22-29); Chloride 109 mmol/L (96-108); Creatinine Clr Calc Pharmacy 76.8; Estimated Glomerular Filt Rate > 60; Glucose Random 120 mg/dL (60-115); Sodium 138 mmol/L (135-145)
--- NOTE | 2024-05-24 06:06 | PC.NURSE ---
pt assisted to the bathroom, and resting in bed.
--- NOTE | 2024-05-24 07:28 | P.PNIM_ITS ---
Subjective Subjective Date of Service: 05/24/24 Interval History: Being followed for acute pyelonephritis Complaining of persistent left flank pain, denies further nausea, no vomiting, no fevers, no acute events since admission tolerating diet. Review of Systems All other system reviewed and are negative Physical Exam 2 Vital Signs: Vital Signs: Last Vital Signs Temp 98.1 F 05/24/24 07:04 Pulse 61 05/24/24 07:04 Resp 12 05/24/24 07:04 BP 128/51 L 05/24/24 07:04 Pulse Ox 97 05/24/24 07:04 O2 Del Method Room Air 05/24/24 07:04 BMI result Body Mass Index 34.5 Const: Other: General awake alert x3 in no acute distress. Neck no JVD. CVS regular rate rhythm, Respiratory lungs clear to auscultation, no respiratory distress, no wheeze, no rhonchi. Gastrointestinal abdomen soft, non tender, bowel sounds audible, no guarding , no rigidity. Left CVA tenderness/left flank discomfort Extremities no edema. Neuro non focal Skin no rash Appropriate affect Objective Data Active Medications Acetaminophen (Acetaminophen 325 Mg Tablet) 650 mg PO Q6H PRN PRN Reason: Pain, Mild 1-3,fever,headache Calcium Carbonate (Calcium Carbonate 750 Mg Tab.Chew) 750 mg PO Q4H PRN PRN Reason: Heartburn Enoxaparin Sodium (Enoxaparin Sodium 40 Mg/0.4 Ml Syringe) 40 mg SUBCUT BEDTIME [facility] Last Admin: 05/24/24 00:32 Dose: 40 mg Documented By: KAREN Dextrose/Sodium Chloride (D5ns) 1,000 mls @ 100 mls/hr IVCONT .Q10H [facility] Last Admin: 05/24/24 00:26 Dose: 100 mls/hr Documented By: KAREN Magnesium Hydroxide (Milk Of Magnesia 30 Ml Oral.Susp) 30 ml PO DAILY PRN PRN Reason: Constipation Melatonin (Melatonin 3 Mg Tablet) 6 mg PO BEDTIME PRN PRN Reason: Insomnia Ondansetron HCl (Ondansetron Hcl 4 Mg/2 Ml Vial) 4 mg IVPUSH Q8H PRN PRN Reason: Nausea and Vomiting Oxycodone HCl (Oxycodone Hcl Immed Release 5 Mg Tablet) 5 mg PO Q6H PRN PRN Reason: Pain, Severe (Pain Scale 7-10) Last Admin: 05/24/24 00:32 Dose: 5 mg Documented By: KAREN Senna (Sennosides 8.6 Mg Tablet) 17.2 mg PO BEDTIME PRN PRN Reason: Constipation Sodium Chloride (0.9 % Sodium Chloride Flush 3 Ml Syringe) 3 ml IVFLUSH QSHIFT MANJU Last Admin: 05/24/24 01:01 Dose: Not Given Documented By: KAREN Non-Admin Reason: See Note Labs 05/24/24 04:50 05/24/24 04:50 Labs: Laboratory Results - last 24 hr 05/23/24 05/23/24 05/23/24 15:05 21:44 22:40 MCV 87.7 MCH 29.1 MCHC 33.2 RDW 12.8 Plt Count 182 MPV 11.1 Immature Gran % (Auto) 0.3 Neut % (Auto) 80.1 H Lymph % (Auto) 12.5 L [place] % (Auto) 6.5 Eos % (Auto) 0.5 Baso % (Auto) 0.1 Lymph # (Auto) 1.0 L [place] # (Auto) 0.5 Eos # (Auto) 0.0 Baso # (Auto) 0.0 Abs Immat Gran (auto) 0.02 Absolute Neuts (auto) 6.4 Absolute Nucleated RBC 0.000 Nucleated RBC % (auto) 0.0 Anion Gap 12 Estim Creat Clear Calc 63.8 Estimated GFR 59 Random Glucose 108 Lactic Acid 0.7 Calcium 9.4 Magnesium 1.8 Total Bilirubin 0.8 AST 23 ALT 26 Alkaline Phosphatase 73 Troponin I High Sens < 2.7 Total Protein 8.4 H Albumin 4.1 Urine Color Yellow Urine Appearance Cloudy Urine pH 6.5 Ur Specific [place] 1.015 Urine Protein Trace Urine Glucose (UA) Negative Urine Ketones Negative Urine Blood Small (1+) H Urine Nitrite Positive H Ur Leukocyte Esterase Large (3+) H Urine RBC 6-10 H Urine WBC >50 H Ur Squamous Epith Cells 3-5 Urine Bacteria 4+ Hyaline Casts 0-2 Influenza Type A (PCR) NEGATIVE Influenza Type B (PCR) NEGATIVE RSV RNA Qual (PCR) NEGATIVE SARS-CoV-2 RNA (RT-PCR) NEGATIVE 05/24/24 04:50 MCV 88.3 MCH 29.5 MCHC 33.4 RDW 12.7 Plt Count 141 L MPV 10.5 Immature Gran % (Auto) 0.1 Neut % (Auto) 73.9 H Lymph % (Auto) 16.5 L [place] % (Auto) 8.8 Eos % (Auto) 0.6 Baso % (Auto) 0.1 Lymph # (Auto) 1.1 L [place] # (Auto) 0.6 Eos # (Auto) 0.0 Baso # (Auto) 0.0 Abs Immat Gran (auto) 0.01 Absolute Neuts (auto) 5.0 Absolute Nucleated RBC 0.000 Nucleated RBC % (auto) 0.0 Anion Gap 9 L Estim Creat Clear Calc 76.8 Estimated GFR > 60 Random Glucose 120 H Lactic Acid Calcium 8.1 L D Magnesium Total Bilirubin AST ALT Alkaline Phosphatase Troponin I High Sens Total Protein Albumin Urine Color Urine Appearance Urine pH Ur Specific [place] Urine Protein Urine Glucose (UA) Urine Ketones Urine Blood Urine Nitrite Ur Leukocyte Esterase Urine RBC Urine WBC Ur Squamous Epith Cells Urine Bacteria Hyaline Casts Influenza Type A (PCR) Influenza Type B (PCR) RSV RNA Qual (PCR) SARS-CoV-2 RNA (RT-PCR) Assessment and Plan (1) Pyelonephritis: Status: Acute Plan 64-year-old speaking female with underlying history of ESBL UTI, asthma, anemia, arthritis, HIV hypertension, TORSTEN, hyperlipidemia anxiety/ depression here with 1. Acute left Pyelonephritis - no sepsis, normal WBC count, afebrile left-sided flank pain with the other constitutional symptoms including a diffuse body aches, nausea, vomiting, diarrhea - urinalysis concerning for UTI with > 50 WBC/HPF, 4+ bacteria, positive urine nitrites and large leukocyte esterase - given underlying history of ESBL UTI, received IV ertapenem in ED, will continue IV meropenem - follow urine and blood cultures - dc ivf 2. HIV - asymptomatic with no HIV related illness - continue Genvoya 3. Essential hypertension - continue losartan 100 mg , hold Lasix and follow BP 4. Hyperlipidemia - continue statin 5. GERD - continue omeprazole 6. Anxiety/Depression - continue sertraline 7. Insomnia - continue Ambien prn 8. Acute hypokalemia will replete and follow labs 9. Class 1 obesity recommend low-calorie diet. 10. Acute on chronic normocytic anemia baseline hematocrit around 35, drop in hematocrit likely dilutional, no acute bleed noted follow CBC. 11. chronic mild persistent asthma/COPD continue home inhalers no acute exacerbation Patient will require continued inpatient hospitalization for IV antibiotic as above that is not possible in less acute setting Quality Stroke Does the patient have a stroke diagnosis?: No VTE Prior VTE?: No VTE Risk Level:: Medical - moderate - high VTE Device Contraindication: Treatment Not Indicated VTE Drug Contraindication: N/A - Med Ordered
[2024-05-24] MEDS: Potassium Chloride ER 20 MEQ TAB.ER.PRT 40 MEQ PO (07:57)
[2024-05-24] MEDS: Meropenem 1 GM VIAL IVPUSH ×3 (07:57→23:10)
[2024-05-24] MEDS: 0.9 % Sodium Chloride Flush 3 ML SYRINGE IVFLUSH ×3 (07:58→21:40)
--- NOTE | 2024-05-24 08:25 | PC.NURSE ---
Contact precautions for ESBL in place
--- NOTE | 2024-05-24 09:53 | PHA.MEDREC ---
Addendum entered by Mounika Cadena RPh 05/24/24 10:19: MED REC REVIEWED BY JUANJOSE Original Note: Pharmacy Consult ? Medication Reconciliation Pharmacy has completed the medication reconciliation. Spoke to patient through captain room service service to confirm med list. patient sates she is no longer taking Dicyclomine 20 mg, Fosfomycin, and mucinex 600 mg. patient states she last took her medication 2 days ago but Genvoya she had yesterday.
--- NOTE | 2024-05-24 11:15 | P.CDIM_ITS ---
PROVIDER RESPONSE TEXT: To clarify, the appropriate diagnosis supported by the clinical indicators: Other (explain): admitted last night have not done her note yet QUERY TEXT: PHYSICIAN'S DOCUMENTATION REQUEST Date of Query: 05/24/2024 10:44 AM EST Patient Name: America Bower Admit Date: 05/24/2024 Dear Kellen Donnelly MD, A review of the medical record indicates additional documentation may be needed. Please review below and update the documentation accordingly. Clinical Indicators: H&H on 05/23/24: 12.3/37.1 H&H on 05/24/24: 10.3/30.8 receiving Lovenox 40 mg sc HS Based on the above, could you clarify which of the following is the most likely type of anemia you ar e evaluating, treating, and/or monitoring? Acute blood loss anemia Acute blood loss anemia with baseline chronic anemia (specify type) Anemia of chronic disease indicate if neoplastic disease, CKD, or other Chronic iron deficiency anemia due to blood loss Vitamin B12 deficiency anemia indicate etiology, such as intrinsic factor deficiency, malabsorption, transcobalamin II deficiency, dietary, etc Folate deficiency anemia indicate etiology, such as dietary, drug-induced, etc Protein deficiency anemia Anemia due to anticoagulant use Other (explain) Clinically unable to determine (explain) Thank you, Sherry Lamb RN Use of terms such as suspected, likely, concern for, or probable (associated with a specific diagnosi s that is being evaluated, monitored, or treated as if it exists) are acceptable and can be coded in the inpatient se tting, when documented at the time of discharge. Please use your independent medical judgment in providing your response. THIS QUERY IS PART OF THE PERMANENT MEDICAL RECORD
--- NOTE | 2024-05-24 14:12 | MHC.CM.PN ---
pt lives with son she had no previous services and has own traansportaion home dc plan home no services
[2024-05-24] MEDS: Elviteg/Cobi/Emtric/Tenofo Ala 150/150/200/10 TABLET 1 TAB PO (21:39)
[2024-05-24] MEDS: Zolpidem Tartrate 5 MG TABLET PO (21:39)
[2024-05-24] MEDS: diphenhydrAMINE HCL 25 MG CAPSULE PO (21:49)
[2024-05-24] MEDS: Atorvastatin Calcium 80 MG TABLET PO (21:49)
[2024-05-25 04:00] VITALS: BP 110/60; PULSE 62; RESP 18; TEMP 37.1; O2SAT 97
[2024-05-25 06:32] LABS: Anion Gap 12 (12-20); Blood Urea Nitrogen 11 mg/dL (9-16); Calcium 9.1 mg/dL (8.4-10.2); Carbon Dioxide 23 mmol/L (22-29); Chloride 109 mmol/L (96-108); Creatinine Clr Calc Pharmacy 80.9; Estimated Glomerular Filt Rate > 60; Glucose Random 95 mg/dL (60-115); Potassium 3.6 mmol/L (3.3-5.1); Sodium 140 mmol/L (135-145)
[2024-05-25 06:42] LABS: Hematocrit 34.2 % (37.0-47.0); Mean Corpuscular HGB Conc 32.2 g/dl (31.0-35.0); Mean Corpuscular Hemoglobin 28.8 pg (27.0-33.0); Mean Corpuscular Volume 89.5 fL (80.0-98.0); Mean Platelet Volume 11.6 fL (9.4-12.3); Platelet Count 162 X10*3/uL (160-400); Red Blood Count 3.82 X10*6/uL (4.20-5.50); Red Cell Distribution Width 12.8 % (11.0-16.0); White Blood Count 5.9 X10*3/uL (4.8-10.8)
[2024-05-25 07:45] VITALS: BP 97/56; PULSE 64; RESP 14; TEMP 36.6; O2SAT 95
[2024-05-25] MEDS: Fluticasone/Vilanterol 200/25 BLST.W.DEV 1 PUFF INHALE (07:49)
[2024-05-25] MEDS: Tiotropium Bromide 2.5 mcg 1 PUFF/2.5 MCG MIST.INHAL 2 PUFF INHALE (07:49)
[2024-05-25 07:52] VITALS: PULSE 72; RESP 18; O2SAT 97
[2024-05-25] MEDS: Pyridoxine HCl (Vitamin B6) 50 MG TABLET 100 MG PO (08:01)
[2024-05-25] MEDS: Meropenem 1 GM VIAL IVPUSH ×2 (08:01→16:35)
[2024-05-25] MEDS: Elviteg/Cobi/Emtric/Tenofo Ala 150/150/200/10 TABLET 1 TAB PO (08:01)
[2024-05-25] MEDS: Loratadine 10 MG TABLET PO (08:01)
[2024-05-25] MEDS: 0.9 % Sodium Chloride Flush 3 ML SYRINGE IVFLUSH ×3 (08:02→20:03)
[2024-05-25] MEDS: oxyCODONE HCl Immed Release 5 MG TABLET PO ×2 (10:43→20:02)
[2024-05-25 15:54] VITALS: BP 107/66; PULSE 69; RESP 12; TEMP 37.2; O2SAT 96
[2024-05-25] MEDS: Loperamide HCl 2 MG CAPSULE PO (16:35)
--- NOTE | 2024-05-25 17:00 | HO.PM.IMPN ---
Subjective Subjective Date of Service: 05/25/24 Interval History: Seen and examined this morning Follow-up for UTI History obtained with the assistance of a car supplier Patient reporting persistent left flank pain with radiation around to the front no nausea or vomiting Review of Systems Review of Systems: Yes all other systems are reviewed and are negative Constitutional Constitutional: Denies chills and Denies fever(s) Cardiovascular Cardiovascular: Denies chest pain Gastrointestinal Gastrointestinal: Reports abdominal pain and Denies vomiting Physical Exam Vital Signs: Vital Signs: Last Vital Signs Temp 99.0 F 05/25/24 15:54 Pulse 69 05/25/24 15:54 Resp 12 05/25/24 15:54 BP 107/66 05/25/24 15:54 Pulse Ox 96 05/25/24 15:54 O2 Del Method Room Air 05/25/24 15:54 BMI result Body Mass Index 36.3 Const: General: cooperative, comfortable, alert and awake Nutritional Appearance: average body habitus Orientation/consciousness: patient oriented x3 Resp: Effort & Inspection: normal respiratory effort, able to speak in complete sentences, no respiratory distress and no use of accessory muscles Cardio: Rate: regular rate GI: Inspection: No distended Palpation (GI): Soft to palpation and nontender : Other: mild left CVAT Neuro: General: patient oriented x3, No moves all extremities and No CN's II-XI intact bilaterally Extrem: General: Yes no pedal edema Objective Data Active Medications Acetaminophen (Acetaminophen 325 Mg Tablet) 650 mg PO Q6H PRN PRN Reason: Pain, Mild 1-3,fever,headache Albuterol Sulfate (Albuterol Sulfate (0.083%) 2.5 Mg/3 Ml Vial.Neb) 2.5 mg INHALE TID PRN PRN Reason: Shortness Of Breath Or Wheezing Albuterol Sulfate (Albuterol Sulfate 90 Mcg 8 Gm Inhaler) 2 puff INHALE QID PRN PRN Reason: asthma Atorvastatin Calcium (Atorvastatin Calcium 80 Mg Tablet) 80 mg PO BEDTIME [facility] Last Admin: 05/24/24 21:49 Dose: 80 mg Documented By: LOVE Calcium Carbonate (Calcium Carbonate 750 Mg Tab.Chew) 750 mg PO Q4H PRN PRN Reason: Heartburn Diphenhydramine HCl (Diphenhydramine Hcl 25 Mg Capsule) 25 mg PO BEDTIME [facility] Last Admin: 05/24/24 21:49 Dose: 25 mg Documented By: LOVE Elvitegravir/Cobicis/Emtricit/Tenof (Elviteg/Tania/Emtric/Tenofo Ala 150/150/200/10 Tablet) 1 tab PO DAILY [facility] Last Admin: 05/25/24 08:01 Dose: 1 tab Documented By: KESHIA Enoxaparin Sodium (Enoxaparin Sodium 40 Mg/0.4 Ml Syringe) 40 mg SUBCUT BEDTIME [facility] Last Admin: 05/24/24 21:49 Dose: 40 mg Documented By: LOVE Fluticasone/Vilanterol (Fluticasone/Vilanterol 200/25 Blst.W.Dev) 1 puff INHALE RDAILY [facility] Last Admin: 05/25/24 07:49 Dose: 1 puff Documented By: SHANNAN Ketotifen Fumarate (Ketotifen Fumarate 0.025% Oph 5 Ml Drpbtl) 2 drop EYE-BOTH DAILY [facility] Last Admin: 05/25/24 10:22 Dose: Not Given Documented By: KESHIA Non-Admin Reason: Med Not Available Loperamide HCl (Loperamide Hcl 2 Mg Capsule) 2 mg PO Q6H PRN PRN Reason: Diarrhea Last Admin: 05/25/24 16:35 Dose: 2 mg Documented By: KESHIA Loratadine (Loratadine 10 Mg Tablet) 10 mg PO DAILY [facility] Last Admin: 05/25/24 08:01 Dose: 10 mg Documented By: KESHIA Losartan Potassium (Losartan Potassium 50 Mg Tablet) 100 mg PO DAILY [facility]; Protocol Last Admin: 05/25/24 07:52 Dose: Not Given Documented By: KESHIA Non-Admin Reason: BP 97/56 Angelika Vasques approved Magnesium Hydroxide (Milk Of Magnesia 30 Ml Oral.Susp) 30 ml PO DAILY PRN PRN Reason: Constipation Meclizine HCl (Meclizine Hcl 12.5 Mg Tablet) 12.5 mg PO TID PRN PRN Reason: Vertigo Melatonin (Melatonin 3 Mg Tablet) 6 mg PO BEDTIME PRN PRN Reason: Insomnia Meropenem (Meropenem 1 Gm Vial) 1 gm IVPUSH Q8H [facility] Last Admin: 05/25/24 16:35 Dose: 1 gm Documented By: KESHIA Omeprazole (Omeprazole 20 Mg Capsule.Dr) 20 mg PO DAILY@0630 [facility] Last Admin: 05/25/24 06:13 Dose: Not Given Documented By: PAUL Non-Admin Reason: Patient Asleep Ondansetron HCl (Ondansetron Hcl 4 Mg/2 Ml Vial) 4 mg IVPUSH Q8H PRN PRN Reason: Nausea and Vomiting Oxycodone HCl (Oxycodone Hcl Immed Release 5 Mg Tablet) 5 mg PO Q6H PRN PRN Reason: Pain, Severe (Pain Scale 7-10) Last Admin: 05/25/24 10:43 Dose: 5 mg Documented By: KESHIA Pyridoxine HCl (Pyridoxine Hcl (Vitamin B6) 50 Mg Tablet) 100 mg PO DAILY [facility] Last Admin: 05/25/24 08:01 Dose: 100 mg Documented By: KESHIA Senna (Sennosides 8.6 Mg Tablet) 17.2 mg PO BEDTIME PRN PRN Reason: Constipation Sertraline HCl (Sertraline Hcl 100 Mg Tablet) 100 mg PO DAILY PRN PRN Reason: mood Sodium Chloride (0.9 % Sodium Chloride Flush 3 Ml Syringe) 3 ml IVFLUSH QSHIFT [facility] Last Admin: 05/25/24 16:35 Dose: 3 ml Documented By: KESHIA Tiotropium [place] (Tiotropium [place] 2.5 Mcg 1 Puff/2.5 Mcg Mist.Inhal) 2 puff INHALE RDAILY [facility] Last Admin: 05/25/24 07:49 Dose: 2 puff Documented By: SHANNAN Zolpidem Tartrate (Zolpidem Tartrate 5 Mg Tablet) 5 mg PO BEDTIME PRN PRN Reason: Insomnia Last Admin: 05/24/24 21:39 Dose: 5 mg Documented By: [email or web address] Labs 05/25/24 05:05 05/25/24 05:05 Labs: Laboratory Results - last 24 hr 05/25/24 05:05 MCV 89.5 MCH 28.8 MCHC 32.2 RDW 12.8 Plt Count 162 MPV 11.6 Absolute Nucleated RBC 0.000 Nucleated RBC % (auto) 0.0 Anion Gap 12 Estim Creat Clear Calc 80.9 Estimated GFR > 60 Random Glucose 95 Calcium 9.1 D Microbiology Microbiology Results: Microbiology 05/23/24 22:58 Urine Culture - Preliminary Urine clean catch - Clean Catch Midstream Culture in progress. 05/23/24 22:50 Blood Culture - Preliminary Blood - Venous No growth after 24 hours. 05/23/24 22:50 Blood Culture - Preliminary Blood - Venous No growth after 24 hours. Assessment and Plan (1) UTI (urinary tract infection): Status: Acute Plan 64-year-old speaking female with underlying history of ESBL UTI, asthma, anemia, arthritis, HIV hypertension, TORSTEN, hyperlipidemia anxiety/ depression here with 1. Acute left Pyelonephritis - no sepsis, normal WBC count, afebrile left-sided flank pain with the other constitutional symptoms including a diffuse body aches, nausea, vomiting, diarrhea - urinalysis concerning for UTI with > 50 WBC/HPF, 4+ bacteria, positive urine nitrites and large leukocyte esterase - given underlying history of ESBL UTI, received IV ertapenem in ED, will continue IV meropenem - follow urine and blood cultures given flank pain, recurrent UTI, will obtain ct abdomen to assess for stones - CT showing nonobstructing stones b/l 2. HIV - asymptomatic with no HIV related illness - continue Genvoya 3. Essential hypertension bp soft this am, hold losartan Lasix has been on hold follow BP 4. Hyperlipidemia - continue statin 5. GERD - continue omeprazole 6. Anxiety/Depression - continue sertraline 7. Insomnia - continue Ambien prn 8. Acute hypokalemia resolved with replacement 9. Class 1 obesity recommend low-calorie diet. 10. Acute on chronic normocytic anemia baseline hematocrit around 35, drop in hematocrit likely dilutional, no acute bleed noted follow CBC. 11. chronic mild persistent asthma/COPD continue home inhalers no acute exacerbation Patient will require continued inpatient hospitalization for IV antibiotic as above that is not possible in less acute setting Quality Stroke Does the patient have a stroke diagnosis?: No VTE Prior VTE?: No VTE Risk Level:: Medical - moderate - high VTE Device Contraindication: Treatment Not Indicated VTE Drug Contraindication: N/A - Med Ordered
[2024-05-25 19:32] VITALS: BP 100/59; PULSE 65; RESP 18; TEMP 36.6; O2SAT 95
[2024-05-25] MEDS: Enoxaparin Sodium 40 MG/0.4 ML SYRINGE SUBCUT (20:02)
[2024-05-25] MEDS: diphenhydrAMINE HCL 25 MG CAPSULE PO (20:02)
[2024-05-25] MEDS: Atorvastatin Calcium 80 MG TABLET PO (20:02)
[2024-05-26] MEDS: Zolpidem Tartrate 5 MG TABLET PO ×2 (00:23→22:11)
[2024-05-26] MEDS: Meropenem 1 GM VIAL IVPUSH ×3 (00:24→18:01)
[2024-05-26 04:00] VITALS: BP 115/67; PULSE 66; RESP 18; TEMP 37; O2SAT 98
[2024-05-26] MEDS: Omeprazole 20 MG CAPSULE.DR PO (05:25)
[2024-05-26] MEDS: Tiotropium Bromide 2.5 mcg 1 PUFF/2.5 MCG MIST.INHAL 2 PUFF INHALE (07:57)
[2024-05-26] MEDS: Fluticasone/Vilanterol 200/25 BLST.W.DEV 1 PUFF INHALE (07:57)
[2024-05-26 07:59] VITALS: PULSE 69; RESP 18; O2SAT 97
[2024-05-26 08:00] VITALS: BP 112/53; PULSE 69; RESP 19; TEMP 37; O2SAT 95
[2024-05-26] MEDS: Pyridoxine HCl (Vitamin B6) 50 MG TABLET 100 MG PO (08:49)
[2024-05-26] MEDS: Elviteg/Cobi/Emtric/Tenofo Ala 150/150/200/10 TABLET 1 TAB PO (08:49)
[2024-05-26] MEDS: Losartan Potassium 50 MG TABLET 100 MG PO (08:49)
[2024-05-26] MEDS: Loratadine 10 MG TABLET PO (08:49)
[2024-05-26] MEDS: 0.9 % Sodium Chloride Flush 3 ML SYRINGE IVFLUSH ×3 (08:50→20:37)
--- NOTE | 2024-05-26 12:44 | MHC.CM.PN ---
Per MD rounds possible discharge later today. Still pending Final cultures, Final ABX, ID consult, Midline insertion and patient infusion education. Referrals have been sent to [facility] and [facility]. CM will continue follow for discharge.
[2024-05-26] MEDS: oxyCODONE HCl Immed Release 5 MG TABLET PO (14:02)
--- NOTE | 2024-05-26 14:22 | HO.PM.IMPN ---
Subjective Subjective Date of Service: 05/26/24 Interval History: Seen and examined this morning Follow-up for UTI No significant flank pain or dysuria Review of Systems Review of Systems: Yes all other systems are reviewed and are negative Constitutional Constitutional: Denies chills and Denies fever(s) Cardiovascular Cardiovascular: Denies chest pain, Denies palpitations and Denies dyspnea Respiratory Respiratory: Denies cough and Denies dyspnea Endocrine Endocrine: Denies palpitations Physical Exam Vital Signs: Vital Signs: Last Vital Signs Temp 98.6 F 05/26/24 08:00 Pulse 69 05/26/24 08:00 Resp 19 05/26/24 08:00 BP 112/53 L 05/26/24 08:00 Pulse Ox 95 05/26/24 08:00 O2 Del Method Room Air 05/26/24 08:00 BMI result Body Mass Index 36.3 Const: General: cooperative, comfortable, alert and awake Nutritional Appearance: average body habitus Orientation/consciousness: patient oriented x3 Resp: Effort & Inspection: normal respiratory effort, able to speak in complete sentences, no respiratory distress and no use of accessory muscles Cardio: Rate: regular rate GI: Inspection: No distended Palpation (GI): Soft to palpation and nontender Neuro: General: patient oriented x3, No moves all extremities and No CN's II-XI intact bilaterally Extrem: General: Yes no pedal edema Objective Data Active Medications Acetaminophen (Acetaminophen 325 Mg Tablet) 650 mg PO Q6H PRN PRN Reason: Pain, Mild 1-3,fever,headache Albuterol Sulfate (Albuterol Sulfate (0.083%) 2.5 Mg/3 Ml Vial.Neb) 2.5 mg INHALE TID PRN PRN Reason: Shortness Of Breath Or Wheezing Albuterol Sulfate (Albuterol Sulfate 90 Mcg 8 Gm Inhaler) 2 puff INHALE QID PRN PRN Reason: asthma Atorvastatin Calcium (Atorvastatin Calcium 80 Mg Tablet) 80 mg PO BEDTIME [facility] Last Admin: 05/25/24 20:02 Dose: 80 mg Documented By: SHANKAR Calcium Carbonate (Calcium Carbonate 750 Mg Tab.Chew) 750 mg PO Q4H PRN PRN Reason: Heartburn Diphenhydramine HCl (Diphenhydramine Hcl 25 Mg Capsule) 25 mg PO BEDTIME [facility] Last Admin: 05/25/24 20:02 Dose: 25 mg Documented By: SHANKAR Elvitegravir/Cobicis/Emtricit/Tenof (Elviteg/Tania/Emtric/Tenofo Ala 150/150/200/10 Tablet) 1 tab PO DAILY [facility] Last Admin: 05/26/24 08:49 Dose: 1 tab Documented By: KESHIA Enoxaparin Sodium (Enoxaparin Sodium 40 Mg/0.4 Ml Syringe) 40 mg SUBCUT BEDTIME [facility] Last Admin: 05/25/24 20:02 Dose: 40 mg Documented By: SHANKAR Fluticasone/Vilanterol (Fluticasone/Vilanterol 200/25 Blst.W.Dev) 1 puff INHALE RDAILY [facility] Last Admin: 05/26/24 07:57 Dose: 1 puff Documented By: SHANNAN Ketotifen Fumarate (Ketotifen Fumarate 0.025% Oph 5 Ml Drpbtl) 2 drop EYE-BOTH DAILY [facility] Last Admin: 05/26/24 09:28 Dose: Not Given Documented By: KESHIA Non-Admin Reason: Patient Refused Loperamide HCl (Loperamide Hcl 2 Mg Capsule) 2 mg PO Q6H PRN PRN Reason: Diarrhea Last Admin: 05/25/24 16:35 Dose: 2 mg Documented By: KESHIA Loratadine (Loratadine 10 Mg Tablet) 10 mg PO DAILY [facility] Last Admin: 05/26/24 08:49 Dose: 10 mg Documented By: KESHIA Losartan Potassium (Losartan Potassium 50 Mg Tablet) 100 mg PO DAILY [facility]; Protocol Last Admin: 05/26/24 08:49 Dose: 100 mg Documented By: KESHIA Magnesium Hydroxide (Milk Of Magnesia 30 Ml Oral.Susp) 30 ml PO DAILY PRN PRN Reason: Constipation Meclizine HCl (Meclizine Hcl 12.5 Mg Tablet) 12.5 mg PO TID PRN PRN Reason: Vertigo Melatonin (Melatonin 3 Mg Tablet) 6 mg PO BEDTIME PRN PRN Reason: Insomnia Meropenem (Meropenem 1 Gm Vial) 1 gm IVPUSH Q8H [facility] Last Admin: 05/26/24 08:49 Dose: 1 gm Documented By: KESHIA Omeprazole (Omeprazole 20 Mg Capsule.Dr) 20 mg PO DAILY@0630 [facility] Last Admin: 05/26/24 05:25 Dose: 20 mg Documented By: SHANKAR Ondansetron HCl (Ondansetron Hcl 4 Mg/2 Ml Vial) 4 mg IVPUSH Q8H PRN PRN Reason: Nausea and Vomiting Oxycodone HCl (Oxycodone Hcl Immed Release 5 Mg Tablet) 5 mg PO Q6H PRN PRN Reason: Pain, Severe (Pain Scale 7-10) Last Admin: 05/26/24 14:02 Dose: 5 mg Documented By: KESHIA Pyridoxine HCl (Pyridoxine Hcl (Vitamin B6) 50 Mg Tablet) 100 mg PO DAILY [facility] Last Admin: 05/26/24 08:49 Dose: 100 mg Documented By: KESHIA Senna (Sennosides 8.6 Mg Tablet) 17.2 mg PO BEDTIME PRN PRN Reason: Constipation Sertraline HCl (Sertraline Hcl 100 Mg Tablet) 100 mg PO DAILY PRN PRN Reason: mood Sodium Chloride (0.9 % Sodium Chloride Flush 3 Ml Syringe) 3 ml IVFLUSH QSHIFT [facility] Last Admin: 05/26/24 08:50 Dose: 3 ml Documented By: KESHIA Tiotropium Ceiba (Tiotropium Ceiba 2.5 Mcg 1 Puff/2.5 Mcg Mist.Inhal) 2 puff INHALE RDAILY [facility] Last Admin: 05/26/24 07:57 Dose: 2 puff Documented By: SHANNAN Zolpidem Tartrate (Zolpidem Tartrate 5 Mg Tablet) 5 mg PO BEDTIME PRN PRN Reason: Insomnia Last Admin: 05/26/24 00:23 Dose: 5 mg Documented By: SHANKAR Labs 05/25/24 05:05 05/25/24 05:05 Microbiology Microbiology Results: Microbiology 05/23/24 22:58 Urine Culture - Preliminary Urine clean catch - Clean Catch Midstream Escherichia coli 05/23/24 22:50 Blood Culture - Preliminary Blood - Venous No growth after 48 hours. 05/23/24 22:50 Blood Culture - Preliminary Blood - Venous No growth after 48 hours. Assessment and Plan (1) Pyelonephritis: Status: Acute Plan 64-year-old speaking female with underlying history of ESBL UTI, asthma, anemia, arthritis, HIV hypertension, TORSTEN, hyperlipidemia anxiety/ depression here with Acute left Pyelonephritis no sepsis, normal WBC count, afebrile given underlying history of ESBL UTI, received IV ertapenem in ED, will continue IV meropenem d/w jessica - urine culture growing ESBL e.coli and likely one other organism that has not yet been identified Blood cultures negative to date CT showing nonobstructing stones b/l - outpatient follow up with urology ID consult pending Midline ordered HIV asymptomatic with no HIV related illness continue Genvoya Essential hypertension continue losartan Lasix has been on hold follow BP Hyperlipidemia continue statin GERD continue omeprazole Anxiety/Depression continue sertraline Insomnia continue Ambien prn Acute hypokalemia resolved with replacement Class 1 obesity recommend low-calorie diet. Acute on chronic normocytic anemia baseline hematocrit around 35, drop in hematocrit likely dilutional, no acute bleed noted. H/H stable chronic mild persistent asthma/COPD continue home inhalers no acute exacerbation dvt ppx - lovenox Patient will require continued inpatient hospitalization for IV antibiotic as above that is not possible in less acute setting Quality Stroke Does the patient have a stroke diagnosis?: No VTE Prior VTE?: No VTE Risk Level:: Medical - moderate - high VTE Device Contraindication: Treatment Not Indicated VTE Drug Contraindication: N/A - Med Ordered
[2024-05-26 15:45] VITALS: BP 110/57; PULSE 70; RESP 17; TEMP 36.9; O2SAT 96
--- NOTE | 2024-05-26 17:11 | PC.NURSE ---
Attempted to place midline in left arm. Left Cephalic vein accessed twice by Jourdan Muro RN, but unable to pass guidewire. Left brachial vein and left basilic vein both accessed by Pooja Victor RN, but unable to pass guidewire. Procedure aborted at patient request. Provider notified of unsuccessful midline attempt.
[2024-05-26 19:48] VITALS: BP 115/67; PULSE 78; RESP 14; TEMP 36.6; O2SAT 94
[2024-05-26] MEDS: diphenhydrAMINE HCL 25 MG CAPSULE PO (20:36)
[2024-05-26] MEDS: Atorvastatin Calcium 80 MG TABLET PO (20:36)
[2024-05-26] MEDS: Enoxaparin Sodium 40 MG/0.4 ML SYRINGE SUBCUT (20:36)
--- NOTE | 2024-05-26 22:24 | W.PM.IDCN ---
History of Present Illness Data of Consult Service Date: 05/26/24 Primary Care Provider: Veronica Rebolledo MD HPI Reason for consult: abdominal pain,left, positive E coli urine She presents with one week left flank pain. She has no fever or chills. She has E coli more than 100,00. Last time in April she had ESBL UTI. 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 HIV (human immunodeficiency virus infection) History of blood transfusion Anemia Hx of renal calculi Difficulty swallowing GERD (gastroesophageal reflux disease) Hepatitis Depression Sleep apnea Asthma Elevated cholesterol HTN (hypertension) Family History Family History Mother Breast cancer Father Heart problem Sister Bone cancer Family/Other Diabetes Family history: reviewed and not pertinent Surgical History Surgical History Hx of colonoscopy Hx of cystoscopy Hx of dilation and curettage Hx of section Hx of reduction mammoplasty Hx of tubal ligation Hx of cholecystectomy Social History Social History Household Members: Family Housing: Apartment Housing Other:: lives alone, son staying with her Are you a primary memory care program director to a significant other at home: No Do you presently have visiting nurse or other home services: No Unable to assess alcohol history related to: Unknown Alcohol intake: current Alcohol intake frequency: holidays/special occasions only Alcohol type: wine Patient Tobacco Use Status: Former Tobacco user Tobacco use type: Cigarette Cigarette Packs Per Day: 2 Cigarettes Per Day: 40.0 Years Smoked: 40 e-Cigarette/Vaping Use: Never Used Second Hand Smoke Exposure: No Substance Use Type: Former Substance User service: No Sexual orientation: Straight/Heterosexual Gender identity: Female Meds Allergies Allergy/AdvReac Type Severity Reaction Status Date / Time shellfish derived Allergy Intermediate HIVES, N/V Verified 05/23/24 14:48 Active Medications: Current Medications Acetaminophen (Acetaminophen 325 Mg Tablet) 650 mg PO Q6H PRN PRN Reason: Pain, Mild 1-3,fever,headache Albuterol Sulfate (Albuterol Sulfate (0.083%) 2.5 Mg/3 Ml Vial.Neb) 2.5 mg INHALE TID PRN PRN Reason: Shortness Of Breath Or Wheezing Albuterol Sulfate (Albuterol Sulfate 90 Mcg 8 Gm Inhaler) 2 puff INHALE QID PRN PRN Reason: asthma Atorvastatin Calcium (Atorvastatin Calcium 80 Mg Tablet) 80 mg PO BEDTIME [facility] Last Admin: 05/26/24 20:36 Dose: 80 mg Calcium Carbonate (Calcium Carbonate 750 Mg Tab.Chew) 750 mg PO Q4H PRN PRN Reason: Heartburn Diphenhydramine HCl (Diphenhydramine Hcl 25 Mg Capsule) 25 mg PO BEDTIME [facility] Last Admin: 05/26/24 20:36 Dose: 25 mg Elvitegravir/Cobicis/Emtricit/Tenof (Elviteg/Tania/Emtric/Tenofo Ala 150/150/200/10 Tablet) 1 tab PO DAILY [facility] Last Admin: 05/26/24 08:49 Dose: 1 tab Enoxaparin Sodium (Enoxaparin Sodium 40 Mg/0.4 Ml Syringe) 40 mg SUBCUT BEDTIME [facility] Last Admin: 05/26/24 20:36 Dose: 40 mg Fluticasone/Vilanterol (Fluticasone/Vilanterol 200/25 Blst.W.Dev) 1 puff INHALE RDAILY [facility] Last Admin: 05/26/24 07:57 Dose: 1 puff Ketotifen Fumarate (Ketotifen Fumarate 0.025% Oph 5 Ml Drpbtl) 2 drop EYE-BOTH DAILY [facility] Last Admin: 05/26/24 09:28 Dose: Not Given Loperamide HCl (Loperamide Hcl 2 Mg Capsule) 2 mg PO Q6H PRN PRN Reason: Diarrhea Last Admin: 05/25/24 16:35 Dose: 2 mg Loratadine (Loratadine 10 Mg Tablet) 10 mg PO DAILY [facility] Last Admin: 05/26/24 08:49 Dose: 10 mg Losartan Potassium (Losartan Potassium 50 Mg Tablet) 100 mg PO DAILY [facility]; Protocol Last Admin: 05/26/24 08:49 Dose: 100 mg Magnesium Hydroxide (Milk Of Magnesia 30 Ml Oral.Susp) 30 ml PO DAILY PRN PRN Reason: Constipation Meclizine HCl (Meclizine Hcl 12.5 Mg Tablet) 12.5 mg PO TID PRN PRN Reason: Vertigo Melatonin (Melatonin 3 Mg Tablet) 6 mg PO BEDTIME PRN PRN Reason: Insomnia Meropenem (Meropenem 1 Gm Vial) 1 gm IVPUSH Q8H [facility] Last Admin: 05/26/24 18:01 Dose: 1 gm Omeprazole (Omeprazole 20 Mg Capsule.Dr) 20 mg PO DAILY@0630 [facility] Last Admin: 05/26/24 05:25 Dose: 20 mg Ondansetron HCl (Ondansetron Hcl 4 Mg/2 Ml Vial) 4 mg IVPUSH Q8H PRN PRN Reason: Nausea and Vomiting Oxycodone HCl (Oxycodone Hcl Immed Release 5 Mg Tablet) 5 mg PO Q6H PRN PRN Reason: Pain, Severe (Pain Scale 7-10) Last Admin: 05/26/24 14:02 Dose: 5 mg Pyridoxine HCl (Pyridoxine Hcl (Vitamin B6) 50 Mg Tablet) 100 mg PO DAILY [facility] Last Admin: 05/26/24 08:49 Dose: 100 mg Senna (Sennosides 8.6 Mg Tablet) 17.2 mg PO BEDTIME PRN PRN Reason: Constipation Sertraline HCl (Sertraline Hcl 100 Mg Tablet) 100 mg PO DAILY PRN PRN Reason: mood Sodium Chloride (0.9 % Sodium Chloride Flush 3 Ml Syringe) 3 ml IVFLUSH QSHIFT [facility] Last Admin: 05/26/24 20:37 Dose: 3 ml Tiotropium Bosque (Tiotropium Bosque 2.5 Mcg 1 Puff/2.5 Mcg Mist.Inhal) 2 puff INHALE RDAILY [facility] Last Admin: 05/26/24 07:57 Dose: 2 puff Zolpidem Tartrate (Zolpidem Tartrate 5 Mg Tablet) 5 mg PO BEDTIME PRN PRN Reason: Insomnia Last Admin: 05/26/24 22:11 Dose: 5 mg Home Medications ?Medication ?Instructions ?Recorded ?Confirmed ?Last Taken ?Type elviteg 150 mg-cob 150 mg-emtricit 1 tab PO DAILY 07/17/23 05/24/24 05/23/24 History 200 mg-tenofo alafenam 10 mg tablet (Genvoya) ketotifen fumarate 0.025 % (0.035 2 drp ophthalmic (eye) DAILY 11/19/23 05/24/24 05/22/24 History %) eye drops rosuvastatin 40 mg tablet 40 mg PO BEDTIME 11/19/23 05/24/24 05/22/24 History losartan 100 mg tablet 100 mg PO DAILY 04/05/24 05/24/24 05/22/24 History triamcinolone acetonide 0.5 % 1 appl topical BID PRN Rash 04/05/24 05/24/24 04/19/24 History topical cream linaclotide 145 mcg capsule 145 mcg PO DAILY 04/20/24 05/24/24 05/22/24 History (Linzess) ondansetron 4 mg disintegrating 4 mg PO Q6H PRN nausea and vomiting 04/20/24 05/24/24 04/19/24 History tablet albuterol sulfate 2.5 mg/0.5 mL 2.5 mg inhalation TID PRN 05/24/24 05/24/24 Unknown History solution for nebulization Shortness Of Breath Or Wheezing albuterol sulfate 90 mcg/actuation 2 puff inhalation QID PRN asthma 05/24/24 05/24/24 Unknown History aerosol inhaler (Ventolin HFA) diphenhydramine HCl 25 mg capsule 25 mg PO BEDTIME 05/24/24 05/24/24 05/22/24 History fluticasone furoate 200 1 ea inhalation DAILY 05/24/24 05/24/24 05/22/24 History mcg-vilanterol 25 mcg/dose inhalation powder (Breo Ellipta) omeprazole 20 mg capsule,delayed 20 mg PO DAILY@0630 05/24/24 05/24/24 05/22/24 History release Physical Exam Vital Signs: Vital Signs: Last Vital Signs Temp 98 F 05/26/24 19:48 Pulse 78 05/26/24 19:48 Resp 14 05/26/24 19:48 BP 115/67 05/26/24 19:48 Pulse Ox 94 05/26/24 19:48 O2 Del Method Room Air 05/26/24 19:48 BMI result Body Mass Index 36.3 Const: General: cooperative HEENT: Head: Yes normal to inspection Face and sinus: Yes normal facial exam Mouth: Normal oral and palatal mucosa present Teeth and gingiva: dentition normal Eyes: General: appearance normal, both eyes and all related structures Pupils: Equal, round and reactive pupils present Resp: Effort & Inspection: normal respiratory effort Cardio: Rate: regular rate Rhythm: regular rhythm GI: Other: left flank pain Palpation (GI): Soft to palpation and nontender : General: Yes no CVA tenderness Back/Spine/Pelvis: Back: no CVA tenderness Skin: General skin exam: no rashes or lesions noted Neuro: General: moves all extremities Cranial nerves: Yes Equal, round and reactive pupils present Extrem: General: Yes normal to inspection Psych: Appearance: grossly normal Results Labs 05/25/24 05:05 05/25/24 05:05 Microbiology Microbiology Results: Microbiology 05/23/24 22:58 Urine clean catch - Clean Catch Midstream Urine Culture - Preliminary Escherichia coli 05/23/24 22:50 Blood - Venous Blood Culture - Preliminary No growth after 48 hours. 05/23/24 22:50 Blood - Venous Blood Culture - Preliminary No growth after 48 hours. Assessment and Plan (1) Pyelonephritis: Status: Acute (2) UTI (urinary tract infection): Status: Acute Plan She has pain and likely may have resistant UTI with ESBL E coli. There are no preventive antibiotics for this. There is a cyst on left kidney. Would continue Merem for now. Await final culture urine,if resistant then 7 d IV. Urologist evaluate cyst on kidney since persons living with HIV have higher malignancy risk. Continue Genvoya.
[2024-05-27] MEDS: Meropenem 1 GM VIAL IVPUSH ×3 (02:49→17:41)
[2024-05-27 03:46] VITALS: BP 104/64; PULSE 60; RESP 16; TEMP 36.2; O2SAT 98
[2024-05-27] MEDS: Omeprazole 20 MG CAPSULE.DR PO (06:50)
[2024-05-27 07:28] VITALS: BP 102/58; PULSE 59; RESP 16; TEMP 36.5; O2SAT 96
[2024-05-27] MEDS: Fluticasone/Vilanterol 200/25 BLST.W.DEV 1 PUFF INHALE (08:12)
[2024-05-27] MEDS: Tiotropium Bromide 2.5 mcg 1 PUFF/2.5 MCG MIST.INHAL 2 PUFF INHALE (08:12)
[2024-05-27 08:13] VITALS: PULSE 75; RESP 15; O2SAT 96
[2024-05-27 08:16] VITALS: BP 102/58
[2024-05-27] MEDS: Losartan Potassium 50 MG TABLET 100 MG PO (08:16)
[2024-05-27] MEDS: Elviteg/Cobi/Emtric/Tenofo Ala 150/150/200/10 TABLET 1 TAB PO (08:17)
[2024-05-27] MEDS: Loratadine 10 MG TABLET PO (08:17)
[2024-05-27] MEDS: Pyridoxine HCl (Vitamin B6) 50 MG TABLET 100 MG PO (08:17)
[2024-05-27] MEDS: Ketotifen Fumarate 0.025% Oph 5 ML DRPBTL 2 DROP EYE-BOTH (08:17)
[2024-05-27] MEDS: 0.9 % Sodium Chloride Flush 3 ML SYRINGE IVFLUSH ×3 (09:45→20:45)
--- NOTE | 2024-05-27 11:06 | P.PNIM_ITS ---
Subjective Subjective Date of Service: 05/27/24 Interval History: Seen and examined this morning Follow-up for ESBL UTI No overnight events Tolerating diet, no nausea, no vomiting. No fever, no chills Review of Systems Review of Systems: Yes all other systems are reviewed and are negative Constitutional Constitutional: Denies chills and Denies fever(s) Cardiovascular Cardiovascular: Denies dyspnea Respiratory Respiratory: Denies dyspnea Gastrointestinal Gastrointestinal: Denies abdominal pain, Denies nausea and Denies vomiting Physical Exam 2 Vital Signs: Vital Signs: Last Vital Signs Temp 97.7 F 05/27/24 07:28 Pulse 75 05/27/24 08:13 Resp 15 05/27/24 08:13 BP 102/58 L 05/27/24 08:16 Pulse Ox 96 05/27/24 07:28 O2 Del Method Room Air 05/27/24 07:28 BMI result Body Mass Index 36.3 Const: General: cooperative, comfortable, alert and awake Nutritional Appearance: average body habitus Orientation/consciousness: patient oriented x3 Resp: Effort & Inspection: normal respiratory effort, able to speak in complete sentences, no respiratory distress and no use of accessory muscles Cardio: Rate: regular rate GI: Inspection: No distended Palpation (GI): Soft to palpation and nontender Neuro: General: patient oriented x3, No moves all extremities and No CN's II- XI intact bilaterally Extrem: General: Yes no pedal edema Objective Data Active Medications Acetaminophen (Acetaminophen 325 Mg Tablet) 650 mg PO Q6H PRN PRN Reason: Pain, Mild 1-3,fever,headache Albuterol Sulfate (Albuterol Sulfate (0.083%) 2.5 Mg/3 Ml Vial.Neb) 2.5 mg INHALE TID PRN PRN Reason: Shortness Of Breath Or Wheezing Albuterol Sulfate (Albuterol Sulfate 90 Mcg 8 Gm Inhaler) 2 puff INHALE QID PRN PRN Reason: asthma Atorvastatin Calcium (Atorvastatin Calcium 80 Mg Tablet) 80 mg PO BEDTIME [facility] Last Admin: 05/26/24 20:36 Dose: 80 mg Documented By: SHANKAR Calcium Carbonate (Calcium Carbonate 750 Mg Tab.Chew) 750 mg PO Q4H PRN PRN Reason: Heartburn Diphenhydramine HCl (Diphenhydramine Hcl 25 Mg Capsule) 25 mg PO BEDTIME [facility] Last Admin: 05/26/24 20:36 Dose: 25 mg Documented By: SHANKAR Elvitegravir/Cobicis/Emtricit/Tenof (Elviteg/Tania/Emtric/Tenofo Ala 150/150/200/10 Tablet) 1 tab PO DAILY [facility] Last Admin: 05/27/24 08:17 Dose: 1 tab Documented By: KIANNA Enoxaparin Sodium (Enoxaparin Sodium 40 Mg/0.4 Ml Syringe) 40 mg SUBCUT BEDTIME [facility] Last Admin: 05/26/24 20:36 Dose: 40 mg Documented By: SHANKAR Fluticasone/Vilanterol (Fluticasone/Vilanterol 200/25 Blst.W.Dev) 1 puff INHALE RDAILY [facility] Last Admin: 05/27/24 08:12 Dose: 1 puff Documented By: KULWINDER Ketotifen Fumarate (Ketotifen Fumarate 0.025% Oph 5 Ml Drpbtl) 2 drop EYE-BOTH DAILY [facility] Last Admin: 05/27/24 08:17 Dose: 2 drop Documented By: KIANNA Loperamide HCl (Loperamide Hcl 2 Mg Capsule) 2 mg PO Q6H PRN PRN Reason: Diarrhea Last Admin: 05/25/24 16:35 Dose: 2 mg Documented By: KESHIA Loratadine (Loratadine 10 Mg Tablet) 10 mg PO DAILY [facility] Last Admin: 05/27/24 08:17 Dose: 10 mg Documented By: KIANNA Losartan Potassium (Losartan Potassium 50 Mg Tablet) 100 mg PO DAILY [facility]; Protocol Last Admin: 05/27/24 08:16 Dose: 100 mg Documented By: KIANNA Magnesium Hydroxide (Milk Of Magnesia 30 Ml Oral.Susp) 30 ml PO DAILY PRN PRN Reason: Constipation Meclizine HCl (Meclizine Hcl 12.5 Mg Tablet) 12.5 mg PO TID PRN PRN Reason: Vertigo Melatonin (Melatonin 3 Mg Tablet) 6 mg PO BEDTIME PRN PRN Reason: Insomnia Meropenem (Meropenem 1 Gm Vial) 1 gm IVPUSH Q8H [facility] Last Admin: 05/27/24 09:45 Dose: 1 gm Documented By: KIANNA Omeprazole (Omeprazole 20 Mg Capsule.Dr) 20 mg PO DAILY@0630 [facility] Last Admin: 05/27/24 06:50 Dose: 20 mg Documented By: FERDINAND Ondansetron HCl (Ondansetron Hcl 4 Mg/2 Ml Vial) 4 mg IVPUSH Q8H PRN PRN Reason: Nausea and Vomiting Oxycodone HCl (Oxycodone Hcl Immed Release 5 Mg Tablet) 5 mg PO Q6H PRN PRN Reason: Pain, Severe (Pain Scale 7-10) Last Admin: 05/26/24 14:02 Dose: 5 mg Documented By: KESHIA Pyridoxine HCl (Pyridoxine Hcl (Vitamin B6) 50 Mg Tablet) 100 mg PO DAILY [facility] Last Admin: 05/27/24 08:17 Dose: 100 mg Documented By: KIANNA Senna (Sennosides 8.6 Mg Tablet) 17.2 mg PO BEDTIME PRN PRN Reason: Constipation Sertraline HCl (Sertraline Hcl 100 Mg Tablet) 100 mg PO DAILY PRN PRN Reason: mood Sodium Chloride (0.9 % Sodium Chloride Flush 3 Ml Syringe) 3 ml IVFLUSH QSHIFT [facility] Last Admin: 05/27/24 09:45 Dose: 3 ml Documented By: KIANNA Tiotropium [place] (Tiotropium [place] 2.5 Mcg 1 Puff/2.5 Mcg Mist.Inhal) 2 puff INHALE RDAILY [facility] Last Admin: 05/27/24 08:12 Dose: 2 puff Documented By: KULWINDER Zolpidem Tartrate (Zolpidem Tartrate 5 Mg Tablet) 5 mg PO BEDTIME PRN PRN Reason: Insomnia Last Admin: 05/26/24 22:11 Dose: 5 mg Documented By: LYSZ Labs 05/25/24 05:05 05/25/24 05:05 Microbiology Microbiology Results: Microbiology 05/23/24 22:58 Urine Culture - Final Urine clean catch - Clean Catch Midstream Escherichia coli Corynebacterium species Assessment and Plan (1) Pyelonephritis: Status: Acute Plan 64-year-old speaking female with underlying history of ESBL UTI, asthma, anemia, arthritis, HIV hypertension, TORSTEN, hyperlipidemia anxiety/ depression here with Acute left Pyelonephritis no sepsis, normal WBC count, afebrile given underlying history of ESBL UTI, continue IV meropenem d/w jessica - urine culture growing ESBL e.coli and Corynebacterium species Blood cultures negative to date CT showing nonobstructing stones b/l, kidney cyst - outpatient follow up with urology IR attempted midline placement, but was unsuccessful seen by ID rec 7 days IV meropenem, got 1 dose of ertapenem on 05/23, then started on meropenem, end date 05/29 may not need midline, potential discharge home wednesday after completes course of meropenem HIV asymptomatic with no HIV related illness continue Genvoya Essential hypertension continue losartan Lasix has been on hold follow BP Hyperlipidemia continue statin GERD continue omeprazole Anxiety/Depression continue sertraline Insomnia continue Ambien prn Acute hypokalemia resolved with replacement Class 1 obesity recommend low-calorie diet. Acute on chronic normocytic anemia baseline hematocrit around 35, drop in hematocrit likely dilutional, no acute bleed noted. H/H stable chronic mild persistent asthma/COPD continue home inhalers no acute exacerbation dvt ppx - lovenox Patient will require continued inpatient hospitalization for IV antibiotics Quality Stroke Does the patient have a stroke diagnosis?: No VTE Prior VTE?: No VTE Risk Level:: Medical - moderate - high VTE Device Contraindication: Treatment Not Indicated VTE Drug Contraindication: N/A - Med Ordered
[2024-05-27 15:18] VITALS: BP 105/64; PULSE 78; RESP 18; TEMP 36.6; O2SAT 94
[2024-05-27 19:24] VITALS: BP 108/59; PULSE 76; RESP 16; TEMP 36.4; O2SAT 95
[2024-05-27] MEDS: Atorvastatin Calcium 80 MG TABLET PO (20:44)
[2024-05-27] MEDS: Zolpidem Tartrate 5 MG TABLET PO (20:44)
[2024-05-27] MEDS: oxyCODONE HCl Immed Release 5 MG TABLET PO (20:44)
[2024-05-27] MEDS: diphenhydrAMINE HCL 25 MG CAPSULE PO (20:44)
[2024-05-27] MEDS: Enoxaparin Sodium 40 MG/0.4 ML SYRINGE SUBCUT (20:44)
[2024-05-28] VITALS: BP 107/57; PULSE 82; RESP 18; TEMP 36.6; O2SAT 97
[2024-05-28] MEDS: Meropenem 1 GM VIAL IVPUSH ×3 (02:25→17:27)
[2024-05-28] MEDS: Omeprazole 20 MG CAPSULE.DR PO (05:50)
[2024-05-28 07:02] VITALS: BP 132/83; PULSE 65; RESP 18; TEMP 36.2; O2SAT 96
[2024-05-28] MEDS: Tiotropium Bromide 2.5 mcg 1 PUFF/2.5 MCG MIST.INHAL 2 PUFF INHALE (08:06)
[2024-05-28] MEDS: Fluticasone/Vilanterol 200/25 BLST.W.DEV 1 PUFF INHALE (08:06)
[2024-05-28 08:08] VITALS: PULSE 69; RESP 18; O2SAT 97
[2024-05-28 08:17] VITALS: BP 132/83
[2024-05-28] MEDS: Elviteg/Cobi/Emtric/Tenofo Ala 150/150/200/10 TABLET 1 TAB PO (08:17)
[2024-05-28] MEDS: 0.9 % Sodium Chloride Flush 3 ML SYRINGE IVFLUSH ×3 (08:17→20:06)
[2024-05-28] MEDS: Losartan Potassium 50 MG TABLET 100 MG PO (08:17)
[2024-05-28] MEDS: Ketotifen Fumarate 0.025% Oph 5 ML DRPBTL 2 DROP EYE-BOTH (08:17)
[2024-05-28] MEDS: Pyridoxine HCl (Vitamin B6) 50 MG TABLET 100 MG PO (08:17)
[2024-05-28] MEDS: Loratadine 10 MG TABLET PO (08:19)
--- NOTE | 2024-05-28 14:49 | P.PNIM_ITS ---
Subjective Subjective Date of Service: 05/28/24 Interval History: seen and examined this morning follow up for ESBL uti no overnight events no fever Review of Systems Review of Systems: Yes all other systems are reviewed and are negative Constitutional Constitutional: Denies chills and Denies fever(s) Physical Exam 2 Vital Signs: Vital Signs: Last Vital Signs Temp 97.2 F 05/28/24 07:02 Pulse 69 05/28/24 08:08 Resp 18 05/28/24 08:08 BP 132/83 05/28/24 08:17 Pulse Ox 96 05/28/24 07:02 O2 Del Method Room Air 05/28/24 07:02 BMI result Body Mass Index 36.3 Const: General: cooperative, comfortable, alert and awake Nutritional Appearance: average body habitus Orientation/consciousness: patient oriented x3 Resp: Effort & Inspection: normal respiratory effort, able to speak in complete sentences, no respiratory distress and no use of accessory muscles Cardio: Rate: regular rate GI: Inspection: No distended Palpation (GI): Soft to palpation and nontender Neuro: General: patient oriented x3, No moves all extremities and No CN's II- XI intact bilaterally Extrem: General: Yes no pedal edema Objective Data Active Medications Acetaminophen (Acetaminophen 325 Mg Tablet) 650 mg PO Q6H PRN PRN Reason: Pain, Mild 1-3,fever,headache Albuterol Sulfate (Albuterol Sulfate (0.083%) 2.5 Mg/3 Ml Vial.Neb) 2.5 mg INHALE TID PRN PRN Reason: Shortness Of Breath Or Wheezing Albuterol Sulfate (Albuterol Sulfate 90 Mcg 8 Gm Inhaler) 2 puff INHALE QID PRN PRN Reason: asthma Atorvastatin Calcium (Atorvastatin Calcium 80 Mg Tablet) 80 mg PO BEDTIME [facility] Last Admin: 05/27/24 20:44 Dose: 80 mg Documented By: SHANKAR Calcium Carbonate (Calcium Carbonate 750 Mg Tab.Chew) 750 mg PO Q4H PRN PRN Reason: Heartburn Diphenhydramine HCl (Diphenhydramine Hcl 25 Mg Capsule) 25 mg PO BEDTIME [facility] Last Admin: 05/27/24 20:44 Dose: 25 mg Documented By: SHANKAR Elvitegravir/Cobicis/Emtricit/Tenof (Elviteg/Tania/Emtric/Tenofo Ala 150/150/200/10 Tablet) 1 tab PO DAILY [facility] Last Admin: 05/28/24 08:17 Dose: 1 tab Documented By: KIANNA Enoxaparin Sodium (Enoxaparin Sodium 40 Mg/0.4 Ml Syringe) 40 mg SUBCUT BEDTIME [facility] Last Admin: 05/27/24 20:44 Dose: 40 mg Documented By: SHANKAR Fluticasone/Vilanterol (Fluticasone/Vilanterol 200/25 Blst.W.Dev) 1 puff INHALE RDAILY [facility] Last Admin: 05/28/24 08:06 Dose: 1 puff Documented By: SHANNAN Ketotifen Fumarate (Ketotifen Fumarate 0.025% Oph 5 Ml Drpbtl) 2 drop EYE-BOTH DAILY [facility] Last Admin: 05/28/24 08:17 Dose: 2 drop Documented By: KIANNA Loperamide HCl (Loperamide Hcl 2 Mg Capsule) 2 mg PO Q6H PRN PRN Reason: Diarrhea Last Admin: 05/25/24 16:35 Dose: 2 mg Documented By: KESHIA Loratadine (Loratadine 10 Mg Tablet) 10 mg PO DAILY [facility] Last Admin: 05/28/24 08:19 Dose: 10 mg Documented By: KAINNA Losartan Potassium (Losartan Potassium 50 Mg Tablet) 100 mg PO DAILY [facility]; Protocol Last Admin: 05/28/24 08:17 Dose: 100 mg Documented By: KIANNA Magnesium Hydroxide (Milk Of Magnesia 30 Ml Oral.Susp) 30 ml PO DAILY PRN PRN Reason: Constipation Meclizine HCl (Meclizine Hcl 12.5 Mg Tablet) 12.5 mg PO TID PRN PRN Reason: Vertigo Melatonin (Melatonin 3 Mg Tablet) 6 mg PO BEDTIME PRN PRN Reason: Insomnia Meropenem (Meropenem 1 Gm Vial) 1 gm IVPUSH Q8H [facility] Last Admin: 05/28/24 10:00 Dose: 1 gm Documented By: KIANNA Omeprazole (Omeprazole 20 Mg Capsule.Dr) 20 mg PO DAILY@0630 [facility] Last Admin: 05/28/24 05:50 Dose: 20 mg Documented By: SHANKAR Ondansetron HCl (Ondansetron Hcl 4 Mg/2 Ml Vial) 4 mg IVPUSH Q8H PRN PRN Reason: Nausea and Vomiting Oxycodone HCl (Oxycodone Hcl Immed Release 5 Mg Tablet) 5 mg PO Q6H PRN PRN Reason: Pain, Severe (Pain Scale 7-10) Last Admin: 05/27/24 20:44 Dose: 5 mg Documented By: SHANKAR Pyridoxine HCl (Pyridoxine Hcl (Vitamin B6) 50 Mg Tablet) 100 mg PO DAILY [facility] Last Admin: 05/28/24 08:17 Dose: 100 mg Documented By: KIANNA Senna (Sennosides 8.6 Mg Tablet) 17.2 mg PO BEDTIME PRN PRN Reason: Constipation Sertraline HCl (Sertraline Hcl 100 Mg Tablet) 100 mg PO DAILY PRN PRN Reason: mood Sodium Chloride (0.9 % Sodium Chloride Flush 3 Ml Syringe) 3 ml IVFLUSH QSHIFT [facility] Last Admin: 05/28/24 08:17 Dose: 3 ml Documented By: KIANNA Tiotropium [place] (Tiotropium [place] 2.5 Mcg 1 Puff/2.5 Mcg Mist.Inhal) 2 puff INHALE RDAILY [facility] Last Admin: 05/28/24 08:06 Dose: 2 puff Documented By: SHANNAN Zolpidem Tartrate (Zolpidem Tartrate 5 Mg Tablet) 5 mg PO BEDTIME PRN PRN Reason: Insomnia Last Admin: 05/27/24 20:44 Dose: 5 mg Documented By: SHANKAR Labs 05/25/24 05:05 05/25/24 05:05 Assessment and Plan (1) UTI (urinary tract infection): Status: Acute Plan 64-year-old speaking female with underlying history of ESBL UTI, asthma, anemia, arthritis, HIV hypertension, TORSTEN, hyperlipidemia anxiety/ depression here with Acute left Pyelonephritis no sepsis, normal WBC count, afebrile urine culture growing ESBL e.coli and Corynebacterium species Blood cultures negative to date CT showing nonobstructing stones b/l, kidney cyst - outpatient follow up with urology IR attempted midline placement, but was unsuccessful seen by ID rec 7 days IV meropenem, got 1 dose of ertapenem on 05/23, then started on meropenem, end date 2/10 HIV asymptomatic with no HIV related illness continue Genvoya Essential hypertension continue losartan resume baseline Lasix Hyperlipidemia continue statin GERD continue omeprazole Anxiety/Depression continue sertraline Insomnia continue Ambien prn Acute hypokalemia resolved with replacement Class 1 obesity recommend low-calorie diet. Acute on chronic normocytic anemia baseline hematocrit around 35, drop in hematocrit likely dilutional, no acute bleed noted. H/H stable chronic mild persistent asthma/COPD continue home inhalers no acute exacerbation dvt ppx - lovenox Patient will require continued inpatient hospitalization for IV antibiotics Quality Stroke Does the patient have a stroke diagnosis?: No VTE Prior VTE?: No VTE Risk Level:: Medical - moderate - high VTE Device Contraindication: Treatment Not Indicated VTE Drug Contraindication: N/A - Med Ordered
[2024-05-28 16:00] VITALS: BP 111/59; PULSE 92; RESP 16; TEMP 36.6; O2SAT 96
[2024-05-28] MEDS: Enoxaparin Sodium 40 MG/0.4 ML SYRINGE SUBCUT (20:04)
[2024-05-28] MEDS: diphenhydrAMINE HCL 25 MG CAPSULE PO (20:04)
[2024-05-28] MEDS: Atorvastatin Calcium 80 MG TABLET PO (20:04)
[2024-05-28] MEDS: oxyCODONE HCl Immed Release 5 MG TABLET PO (22:11)
--- NOTE | 2024-05-28 22:49 | PC.NURSE ---
PowerGlide Pro Midline Catheter placed at approx 2230 to right upper arm, cephalic vein, without incident- see IV assessment for further details. Primary RN aware.
[2024-05-28 23:31] VITALS: BP 115/62; PULSE 93; RESP 18; TEMP 36.3; O2SAT 96
[2024-05-29] MEDS: Meropenem 1 GM VIAL IVPUSH ×3 (02:15→16:59)
[2024-05-29] MEDS: Omeprazole 20 MG CAPSULE.DR PO (05:36)
--- NOTE | 2024-05-29 07:10 | PC.NURSE ---
This card writer hand assumed care of this patient at 23:00. Please see shift assessments, tasks, and MAR for full details. Handoff report given to oncoming RN.
[2024-05-29 07:43] VITALS: BP 113/63; PULSE 76; RESP 16; TEMP 36.7; O2SAT 99
--- NOTE | 2024-05-29 08:19 | HO.PM.IMPN ---
Subjective Subjective Date of Service: 05/29/24 Interval History: seen and examined this morning follow up for ESBL uti no overnight events no fever Review of Systems Review of Systems: Yes all other systems are reviewed and are negative Constitutional Constitutional: Denies chills and Denies fever(s) Physical Exam Vital Signs: Vital Signs: Last Vital Signs Temp 98.1 F 05/29/24 07:43 Pulse 76 05/29/24 07:43 Resp 16 05/29/24 07:43 BP 113/63 05/29/24 07:43 Pulse Ox 99 05/29/24 07:43 O2 Del Method Room Air 05/29/24 07:43 BMI result Body Mass Index 36.3 Appearing in no acute distress lung sounds are clear to auscultation heart regular rate rhythm, clear S1, S2 positive bowel sounds, abdomen is soft, nontender neuro patient is alert x3, no focal deficits Objective Data Active Medications Acetaminophen (Acetaminophen 325 Mg Tablet) 650 mg PO Q6H PRN PRN Reason: Pain, Mild 1-3,fever,headache Albuterol Sulfate (Albuterol Sulfate (0.083%) 2.5 Mg/3 Ml Vial.Neb) 2.5 mg INHALE TID PRN PRN Reason: Shortness Of Breath Or Wheezing Albuterol Sulfate (Albuterol Sulfate 90 Mcg 8 Gm Inhaler) 2 puff INHALE QID PRN PRN Reason: asthma Atorvastatin Calcium (Atorvastatin Calcium 80 Mg Tablet) 80 mg PO BEDTIME [facility] Last Admin: 05/28/24 20:04 Dose: 80 mg Documented By: PREET Calcium Carbonate (Calcium Carbonate 750 Mg Tab.Chew) 750 mg PO Q4H PRN PRN Reason: Heartburn Diphenhydramine HCl (Diphenhydramine Hcl 25 Mg Capsule) 25 mg PO BEDTIME [facility] Last Admin: 05/28/24 20:04 Dose: 25 mg Documented By: PREET Elvitegravir/Cobicis/Emtricit/Tenof (Elviteg/Tania/Emtric/Tenofo Ala 150/150/200/10 Tablet) 1 tab PO DAILY [facility] Last Admin: 05/28/24 08:17 Dose: 1 tab Documented By: KIANNA Enoxaparin Sodium (Enoxaparin Sodium 40 Mg/0.4 Ml Syringe) 40 mg SUBCUT BEDTIME [facility] Last Admin: 05/28/24 20:04 Dose: 40 mg Documented By: PREET Fluticasone/Vilanterol (Fluticasone/Vilanterol 200/ Blst.W.Dev) 1 puff INHALE RDAILY [facility] Last Admin: 05/28/24 08:06 Dose: 1 puff Documented By: SHANNAN Furosemide (Furosemide 20 Mg Tablet) 20 mg PO DAILY [facility]; Protocol Ketorolac Tromethamine (Ketorolac Tromethamine 15 Mg/Ml Vial) 15 mg IVPUSH Q6H PRN PRN Reason: Pain, Moderate(Pain Scale 4-6) Ketotifen Fumarate (Ketotifen Fumarate 0.025% Oph 5 Ml Drpbtl) 2 drop EYE-BOTH DAILY [facility] Last Admin: 05/28/24 08:17 Dose: 2 drop Documented By: KIANNA Loperamide HCl (Loperamide Hcl 2 Mg Capsule) 2 mg PO Q6H PRN PRN Reason: Diarrhea Last Admin: 05/25/24 16:35 Dose: 2 mg Documented By: KESHIA Loratadine (Loratadine 10 Mg Tablet) 10 mg PO DAILY [facility] Last Admin: 05/28/24 08:19 Dose: 10 mg Documented By: KIANNA Losartan Potassium (Losartan Potassium 50 Mg Tablet) 100 mg PO DAILY [facility]; Protocol Last Admin: 05/28/24 08:17 Dose: 100 mg Documented By: KIANNA Magnesium Hydroxide (Milk Of Magnesia 30 Ml Oral.Susp) 30 ml PO DAILY PRN PRN Reason: Constipation Meclizine HCl (Meclizine Hcl 12.5 Mg Tablet) 12.5 mg PO TID PRN PRN Reason: Vertigo Melatonin (Melatonin 3 Mg Tablet) 6 mg PO BEDTIME PRN PRN Reason: Insomnia Meropenem (Meropenem 1 Gm Vial) 1 gm IVPUSH Q8H [facility] Last Admin: 05/29/24 02:15 Dose: 1 gm Documented By: PATY Omeprazole (Omeprazole 20 Mg Capsule.Dr) 20 mg PO DAILY@0630 [facility] Last Admin: 05/29/24 05:36 Dose: 20 mg Documented By: PATY Ondansetron HCl (Ondansetron Hcl 4 Mg/2 Ml Vial) 4 mg IVPUSH Q8H PRN PRN Reason: Nausea and Vomiting Pyridoxine HCl (Pyridoxine Hcl (Vitamin B6) 50 Mg Tablet) 100 mg PO DAILY [facility] Last Admin: 05/28/24 08:17 Dose: 100 mg Documented By: KIANNA Senna (Sennosides 8.6 Mg Tablet) 17.2 mg PO BEDTIME PRN PRN Reason: Constipation Sertraline HCl (Sertraline Hcl 100 Mg Tablet) 100 mg PO DAILY PRN PRN Reason: mood Sodium Chloride (0.9 % Sodium Chloride Flush 3 Ml Syringe) 3 ml IVFLUSH QSHIFT [facility] Last Admin: 05/28/24 20:06 Dose: 3 ml Documented By: PREET Tiotropium [place]umann (Tiotropium [place]umann 2.5 Mcg 1 Puff/2.5 Mcg Mist.Inhal) 2 puff INHALE RDAILY [facility] Last Admin: 05/28/24 08:06 Dose: 2 puff Documented By: SHANNAN Zolpidem Tartrate (Zolpidem Tartrate 5 Mg Tablet) 5 mg PO BEDTIME PRN PRN Reason: Insomnia Last Admin: 05/27/24 20:44 Dose: 5 mg Documented By: LYSZ Labs 05/25/24 05:05 05/25/24 05:05 Microbiology Microbiology Results: Microbiology 05/23/24 22:50 Blood Culture - Final Blood - Venous No growth after 5 days. 05/23/24 22:50 Blood Culture - Final Blood - Venous No growth after 5 days. Assessment and Plan (1) UTI (urinary tract infection): Status: Acute Plan 64-year-old speaking female with underlying history of ESBL UTI, asthma, anemia, arthritis, HIV hypertension, TORSTEN, hyperlipidemia anxiety/ depression here with Acute left Pyelonephritis no sepsis, normal WBC count, afebrile urine culture growing ESBL e.coli and Corynebacterium species Blood cultures negative to date CT showing nonobstructing stones b/l, kidney cyst - outpatient follow up with urology midline placed 05/28/24 seen by CHANTE stone 7 days IV meropenem, got 1 dose of ertapenem on 05/23, then started on meropenem, end date 05/29 HIV asymptomatic with no HIV related illness continue Genvoya Essential hypertension continue losartan resume baseline Lasix Hyperlipidemia continue statin GERD continue omeprazole Anxiety/Depression continue sertraline Insomnia continue Ambien prn Acute hypokalemia resolved with replacement Class 1 obesity . BMI 36.3 recommend low-calorie diet. Acute on chronic normocytic anemia baseline hematocrit around 35, drop in hematocrit likely dilutional, no acute bleed noted. H/H stable chronic mild persistent asthma/COPD continue home inhalers no acute exacerbation dvt ppx - lovenox attending Dr. Russell Full code Patient will require continued inpatient hospitalization for IV antibiotics Quality Stroke Does the patient have a stroke diagnosis?: No VTE Prior VTE?: No VTE Risk Level:: Medical - moderate - high VTE Device Contraindication: Treatment Not Indicated VTE Drug Contraindication: N/A - Med Ordered
[2024-05-29 08:23] VITALS: BP 113/63
[2024-05-29] MEDS: Loratadine 10 MG TABLET PO (08:23)
[2024-05-29] MEDS: Losartan Potassium 50 MG TABLET 100 MG PO (08:23)
[2024-05-29] MEDS: Elviteg/Cobi/Emtric/Tenofo Ala 150/150/200/10 TABLET 1 TAB PO (08:23)
[2024-05-29] MEDS: Pyridoxine HCl (Vitamin B6) 50 MG TABLET 100 MG PO (08:23)
[2024-05-29] MEDS: Furosemide 20 MG TABLET PO (08:23)
[2024-05-29] MEDS: 0.9 % Sodium Chloride Flush 3 ML SYRINGE IVFLUSH ×3 (08:24→19:46)
[2024-05-29] MEDS: Ketotifen Fumarate 0.025% Oph 5 ML DRPBTL 2 DROP EYE-BOTH (08:25)
[2024-05-29] MEDS: Fluticasone/Vilanterol 200/25 BLST.W.DEV 1 PUFF INHALE (08:27)
[2024-05-29] MEDS: Tiotropium Bromide 2.5 mcg 1 PUFF/2.5 MCG MIST.INHAL 2 PUFF INHALE (08:27)
--- NOTE | 2024-05-29 11:11 | PC.NURSE ---
Pt in bed at this time, sleeping, RR unlabored.
--- NOTE | 2024-05-29 12:15 | MHC.CM.PN ---
Per MD rounds Patient will discharge tomorrow after ABX administered. The referrals for home services with infusion have been cancelled. DP Home with family support. She will arrange for transportation home.
[2024-05-29 15:23] VITALS: BP 120/62; PULSE 78; RESP 18; TEMP 36.6; O2SAT 96
[2024-05-29] MEDS: Ketorolac Tromethamine 15 MG/ML VIAL IVPUSH (19:45)
[2024-05-29] MEDS: Enoxaparin Sodium 40 MG/0.4 ML SYRINGE SUBCUT (19:45)
[2024-05-29] MEDS: diphenhydrAMINE HCL 25 MG CAPSULE PO (19:45)
[2024-05-29] MEDS: Acetaminophen 325 MG TABLET 650 MG PO (19:45)
[2024-05-29] MEDS: Atorvastatin Calcium 80 MG TABLET PO (19:45)
[2024-05-29] MEDS: Zolpidem Tartrate 5 MG TABLET PO (22:51)
[2024-05-29 23:53] VITALS: BP 100/57; PULSE 65; RESP 18; TEMP 36.3; O2SAT 95
[2024-05-30] MEDS: Meropenem 1 GM VIAL IVPUSH (01:08)
[2024-05-30] MEDS: Omeprazole 20 MG CAPSULE.DR PO (05:35)
--- NOTE | 2024-05-30 07:08 | P.DS_ITS ---
DS: Providers Provider Date of Service: 05/30/24 Date of admission: 05/23/24 23:48 Date of discharge: 05/30/24 Primary care physician: Veronica Rebolledo MD Consults: 05/26/24 09:38 Consult to Infectious Diseases Routine Consulting Provider: [facility] Reason for consultation: recurrent ESBL UTI;possible second organism; kidney stones Has provider been notified: No DS: Diagnosis Discharge Diagnosis (1) UTI (urinary tract infection): Status: Acute DS: Summary Hospital Course Hospital Course: History and physical as per admitting provider. Patient is a 64-year-old speaking female with underlying history of ESBL UTI, asthma, anemia, arthritis, HIV, hypertension, GERD, hyperlipidemia, anxiety/ depression who presents to the emergency room from home complaining of worsening left flank pain, generalized / diffuse body aches with associated nausea, vomiting and diarrhea for the last 1 week. The left sided flank pain has become increasingly severe and she now rates it at a 10/10 at its worst and this is what prompted her to present to the emergency room today. Initial workup done in the emergency room included a urinalysis that revealed presence of > 50 wbc/hpf with 4+ bacteria, positive urine nitrites and large leukocyte esterase. An assessment of left-sided pyelonephritis was made and given her history of ESBL UTI she was started on intravenous Ertapenem and admission requested for continued IV antibiotics as we await her urine cultures to be resulted. She otherwise has no other complaints. Acute left Pyelonephritis. no sepsis, normal WBC count, afebrile. urine culture growing ESBL e.coli and Corynebacterium species. Blood cultures negative to date. CT showing nonobstructing stones b/l, kidney cyst - outpatient follow up with urology. midline placed 05/28/24, removed today. seen by ID rec 7 days IV meropenem, completed 05/30/24 HIV asymptomatic with no HIV related illness. continue Genvoya Essential hypertension. continue losartan and Lasix Hyperlipidemia continue statin GERD continue omeprazole Anxiety/Depression continue sertraline Insomnia continue Ambien prn Acute hypokalemia resolved with replacement Class 1 obesity . BMI 36.3 recommend low-calorie diet. Acute on chronic normocytic anemia baseline hematocrit around 35, drop in hematocrit likely dilutional, no acute bleed noted. H/H stable chronic mild persistent asthma/COPD continue home inhalers no acute exacerbation Time Attestation Discharge Coordination Time (in mins): 40 Quality: Safe Use of Opioids Does Pt have an Active Cancer Diagnosis on the Problem List?: No Quality: Stroke Does the patient have a stroke diagnosis?: No Physical Exam Vital Signs: Vital Signs: Last Vital Signs Temp 97.3 F 05/29/24 23:53 Pulse 65 05/29/24 23:53 Resp 18 05/29/24 23:53 BP 100/57 L 05/29/24 23:53 Pulse Ox 95 05/29/24 23:53 O2 Del Method Room Air 05/29/24 23:53 BMI result Body Mass Index 36.3 Appearing in no acute distress head is normocephalic atraumatic eyes pupils are PERRLA sclera is anicteric mouth throat mucous membranes are intact and moist neck is supple no lymphadenopathy, no JVD noted lung sounds are clear to auscultation heart regular rate rhythm, clear S1, S2 positive bowel sounds, abdomen is soft, nontender neuro patient is alert x3, no focal deficits DS: Data Data Completed and Pending Labs on day of discharge: Laboratory Results - last 24 hr 05/25/24 05:05 WBC 5.9 RBC 3.82 L Hgb 11.0 L Hct 34.2 L MCV 89.5 MCH 28.8 MCHC 32.2 RDW 12.8 Plt Count 162 MPV 11.6 Absolute Nucleated RBC 0.000 Nucleated RBC % (auto) 0.0 Sodium 140 Potassium 3.6 Chloride 109 H Carbon Dioxide 23 Anion Gap 12 BUN 11 Creatinine 0.77 Estim Creat Clear Calc 80.9 Estimated GFR > 60 Random Glucose 95 Calcium 9.1 D Discharge Plan Discharge Anticipated Discharge Date/Time: 05/30/24 07:06 Patient Disposition: Home, Self-Care Discharge Diagnosis: Pyelonephritis Referrals: Veronica Rebolledo MD [Primary Care Provider] - 1 Week Discharge Medications: Continued hydrocortisone [Cortisone (hydrocortisone)] 1 % cream 1 appl topical BID PRN (Reason: itching) Qty: 28.35 0RF albuterol sulfate [Ventolin HFA] 90 mcg/actuation HFA aerosol inhaler 2 puff INHALATION QID PRN (Reason: asthma) albuterol sulfate 2.5 mg/0.5 mL solution for nebulization 2.5 mg inhalation TID PRN (Reason: Shortness Of Breath Or Wheezing) fluticasone furoate-vilanterol [Breo Ellipta] 200-25 mcg/dose blister with device 1 ea INHALATION DAILY diphenhydramine HCl 25 mg capsule 25 mg PO BEDTIME omeprazole 20 mg capsule,delayed release(DR/EC) 20 mg PO DAILY@0630 Genvoya [phone] mg tablet 1 tab PO DAILY Rx Instructions: with breakfast meloxicam 15 mg tablet 15 mg PO DAILY Qty: 30 0RF sertraline 100 mg tablet 100 mg PO DAILY PRN (Reason: mood) Qty: 30 0RF meclizine 12.5 mg tablet 12.5 mg PO TID PRN (Reason: Vertigo) Qty: 12 0RF furosemide 20 mg tablet 20 mg PO DAILY 30 Days Qty: 30 6RF zolpidem 10 mg tablet 10 mg PO BEDTIME Qty: 30 0RF loratadine 10 mg Tablet 10 mg PO DAILY Qty: 30 0RF naproxen 500 mg tablet 500 mg PO BID PRN (Reason: pain) 7 Days Qty: 14 0RF losartan 100 mg tablet 100 mg PO DAILY triamcinolone acetonide 0.5 % cream 1 appl topical BID PRN (Reason: Rash) ondansetron 4 mg tablet,disintegrating 4 mg PO Q6H PRN (Reason: nausea and vomiting) Linzess 145 mcg capsule 145 mcg PO DAILY (DME) Ultra-Light Rollator Misc See Rx Instructions .Route Qty: 1 0RF Rx Instructions: As directed pyridoxine (vitamin B6) 100 mg tablet 100 mg PO DAILY 90 Days Qty: 90 3RF Incruse Ellipta 62.5 mcg/actuation blister with device 1 inh inhalation DAILY Qty: 1 6RF rosuvastatin 40 mg tablet 40 mg PO BEDTIME ketotifen fumarate 0.025 % (0.035 %) drops 2 drp ophthalmic (eye) DAILY simethicone 180 mg capsule 180 mg PO QID 30 Days Qty: 120 6RF Rx Instructions: after meals Diet: Advance to usual diet Activity on Discharge: As tolerated Stand Alone Forms: Patient Portal Discharge page Print Language: Marshallese Care Plan Goals: Completed treatment for UTI and pyelonephritis Health Concerns: Pyelonephritis Plan of Treatment: Follow-up with primary care provider as needed Take all medications as prescribed Assessment: See discharge summary
[2024-05-30 07:12] VITALS: BP 110/56; PULSE 63; RESP 16; TEMP 36.1; O2SAT 97
[2024-05-30] MEDS: Elviteg/Cobi/Emtric/Tenofo Ala 150/150/200/10 TABLET 1 TAB PO (07:56)
[2024-05-30] MEDS: Ketotifen Fumarate 0.025% Oph 5 ML DRPBTL 2 DROP EYE-BOTH (08:02)
[2024-05-30] MEDS: Losartan Potassium 50 MG TABLET 100 MG PO (08:02)
[2024-05-30] MEDS: Pyridoxine HCl (Vitamin B6) 50 MG TABLET 100 MG PO (08:02)
[2024-05-30] MEDS: Ertapenem Sodium 1 GM VIAL IVPUSH (08:03)
[2024-05-30] MEDS: Furosemide 20 MG TABLET PO (08:03)
[2024-05-30] MEDS: Loratadine 10 MG TABLET PO (08:03)
[2024-05-30] MEDS: 0.9 % Sodium Chloride Flush 3 ML SYRINGE IVFLUSH (08:04)
[2024-05-30] MEDS: Acetaminophen 325 MG TABLET 650 MG PO (08:06)
[2024-05-30] MEDS: Ketorolac Tromethamine 15 MG/ML VIAL IVPUSH (08:07)
[2024-05-30 08:24] VITALS: PULSE 82; RESP 16; O2SAT 96
[2024-05-30] MEDS: Fluticasone/Vilanterol 200/25 BLST.W.DEV 1 PUFF INHALE (08:24)
[2024-05-30] MEDS: Tiotropium Bromide 2.5 mcg 1 PUFF/2.5 MCG MIST.INHAL 2 PUFF INHALE (08:24)
--- NOTE | 2024-05-30 13:01 | MHC.CM.PN ---
Patient discharged today to home self care. She transport home via [facility] shuttle 11am .
== END 2024-05-30 10:34 | disposition home or self-care (01) | DRG 463 ==
LOC: HO.ED 22:29 → HO.EDOVER 23:55 → HO.S3 05-24 19:09
PROVIDERS: Hospitalist; Physician Assistant Medical; Admitting Provider Internal Medicine; Emergency Provider Emergency Medicine; PCP Internal Medicine; Visit Provider Nurse Practitioner Acute Care
DX: N10 Acute pyelonephritis (principal); B96.20 Unspecified Escherichia coli [E. coli] as the cause of diseases classified elsewhere; D64.9 Anemia, unspecified; F32.A Depression, unspecified; I10 Essential (primary) hypertension; Z21 Asymptomatic human immunodeficiency virus [HIV] infection status; K21.9 Gastro-esophageal reflux disease without esophagitis; F41.9 Anxiety disorder, unspecified; G47.00 Insomnia, unspecified; E87.6 Hypokalemia; E78.5 Hyperlipidemia, unspecified; E66.811 Obesity, class 1; N28.1 Cyst of kidney, acquired; J44.9 Chronic obstructive pulmonary disease, unspecified; J45.30 Mild persistent asthma, uncomplicated; Z16.12 Extended spectrum beta lactamase (ESBL) resistance; Z68.36 Body mass index [BMI] 36.0-36.9, adult; Z71.3 Dietary counseling and surveillance; Z87.440 Personal history of urinary (tract) infections; Z20.822 Contact with and (suspected) exposure to COVID-19; Z79.51 Long term (current) use of inhaled steroids; Z79.899 Other long term (current) drug therapy
CPT/HCPCS: 0241U; 36415; 71046; 74176; 80048; 80053; 81001; 83605; 83735; 84484; 85025; 85027; 87040; 87086; 87088; 87186; 93005; 94640; 99285; J1335; J1650; J1885; J2185

== ENCOUNTER → 2024-05-23 14:09 | Outpatient (BNV) | payer MEDICAID, SELFPAY | PROVIDERS: Admitting Provider Internal Medicine; Emergency Provider Emergency Medicine; PCP Internal Medicine; Visit Provider Internal Medicine Cardiovascular Disease | DX: I44.4 Left anterior fascicular block (principal) | CPT/HCPCS: 93010 ==

== ENCOUNTER → 2024-05-23 14:50 | Outpatient (BNV) | payer MEDICAID, SELFPAY | PROVIDERS: PCP Internal Medicine; Visit Provider Radiology Diagnostic Radiology | DX: R07.9 Chest pain, unspecified (principal) | CPT/HCPCS: 71046 ==

== ENCOUNTER 2024-05-23 23:48 | Outpatient (BNV) | payer MEDICAID, SELFPAY | END 2024-05-25 11:42 | PROVIDERS: Admitting Provider Internal Medicine; Emergency Provider Emergency Medicine; PCP Internal Medicine; Visit Provider Radiology Diagnostic Radiology | DX: N20.0 Calculus of kidney (principal); N28.1 Cyst of kidney, acquired; D25.9 Leiomyoma of uterus, unspecified | CPT/HCPCS: 74176 ==

== ENCOUNTER → 2024-05-23 23:48 | Outpatient (BNV) | payer MEDICAID, SELFPAY | PROVIDERS: Admitting Provider Internal Medicine; Emergency Provider Emergency Medicine; PCP Internal Medicine; Visit Provider Internal Medicine | DX: N12 Tubulo-interstitial nephritis, not specified as acute or chronic (principal); N39.0 Urinary tract infection, site not specified | CPT/HCPCS: 99222 ==

== ENCOUNTER → 2024-05-23 23:48 | Outpatient (BNV) | payer MEDICAID, SELFPAY | PROVIDERS: Admitting Provider Internal Medicine; Emergency Provider Emergency Medicine; PCP Internal Medicine; Visit Provider Internal Medicine | DX: N12 Tubulo-interstitial nephritis, not specified as acute or chronic (principal) | CPT/HCPCS: 99223; 99232; 99239 ==

== ENCOUNTER 2024-06-01 13:20 | Outpatient (AMB) | payer MEDICAID, SELFPAY ==
--- NOTE | 2024-06-01 13:24 | MHC.OFFVIS ---
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 Patient recent CT chest does not demonstrate significant interstitial disease. Her pulmonary function test is still pending. Her 2D echocardiogram is essentially normal. She continues on Lasix with reasonable control of dyspnea and lower extremity edema. She has been using Breo, Incruse, and albuterol MDI/nebs with good control of her pulmonary symptoms. She is complaining of unrestful sleep and daytime somnolence. 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 HIV (human immunodeficiency virus infection) History of blood transfusion Anemia Hx of renal calculi Difficulty swallowing GERD (gastroesophageal reflux disease) Hepatitis Depression Sleep apnea Asthma Elevated cholesterol HTN (hypertension) Surgical History Hx of colonoscopy Hx of cystoscopy Hx of dilation and curettage Hx of section Hx of reduction mammoplasty Hx of tubal ligation Hx of cholecystectomy Family History Mother Breast cancer Father Heart problem Sister Bone cancer Family/Other Diabetes Social History Household Members: Family Housing: Apartment Housing Other:: lives alone, son staying with her Are you a primary child day care center worker to a significant other at home: No Do you presently have visiting nurse or other home services: No Unable to assess alcohol history related to: Unknown Alcohol intake: current Alcohol intake frequency: holidays/special occasions only Alcohol type: wine Comment: low falls risk Patient Tobacco Use Status: Former Tobacco user Tobacco use type: Cigarette Cigarette Packs Per Day: 2 Cigarettes Per Day: 40.0 Years Smoked: 40 e-Cigarette/Vaping Use: Never Used Second Hand Smoke Exposure: No Substance Use Type: Former Substance User service: No Sexual orientation: Straight/Heterosexual Gender identity: Female Female Reproductive History Menstrual Age of Menarche: 12 Review of Systems Const Reports daytime sleepiness, Denies excessive sweating, Denies fatigue, Denies fever(s), Reports lethargy, Denies malaise, Denies night sweats, Denies snoring and Denies weight loss Eyes Denies blurry vision and Denies itchy eyes ENT Denies nasal congestion, Denies post nasal drip, Denies sinus pain, Denies sinus pressure and Denies other ( Thrush) Card Denies chest pain, Denies pedal edema, Denies dyspnea, Denies orthopnea and Denies paroxysmal nocturnal dyspnea Resp Denies cough, Denies hemoptysis, Denies excessive phlegm production, Denies dyspnea, Denies snoring and Denies wheezing GI Denies abdominal pain and Denies heartburn Musc Denies myalgias, Denies arthralgias and Denies joint swelling Skin/Breast Denies rash Neuro Denies memory loss and Denies seizure-like activity Psych Denies abnormal sleep pattern, Denies anxiety and Denies memory loss Endo Denies excessive sweating, Denies fatigue and Denies heat intolerance Flaquito/Lymph Denies easy bruising Aller/Immun Denies itchy eyes, Denies seasonal rhinorrhea and Denies wheezing Physical Exam Vital Signs: Last Vital Signs Pulse 68 06/01/24 13:26 BP 122/67 06/01/24 13:26 Pulse Ox 98 06/01/24 13:26 Oxygen Delivery Method Room Air 06/01/24 13:26 BMI result Body Mass Index 34.7 Const General: no acute distress and alert Nutritional Appearance: not obese Orientation/consciousness: Other orientation findings ( oriented) HEENT Head: Yes atraumatic Eyes General: appearance normal, both eyes and all related structures Sclerae: sclerae normal EOM: EOMs intact bilaterally Neck Neck: Yes supple Lymphatic: no lymphadenopathy noted Resp Effort & Inspection: normal respiratory effort and no use of accessory muscles Auscultation: clear to auscultation bilaterally Cardio Rate: regular rate Rhythm: regular rhythm Heart sounds: no gallops, no murmurs and no rubs Skin General skin exam: other ( warm) Extrem General: No clubbing, No cyanosis and Yes edema (1+ bilateral) Assessment & Plan Assessment & Plan (1) Reactive airway disease: Code(s): J45.909 - Unspecified asthma, uncomplicated Category: Medical Plan: Well controlled current regimen of Incruse, Breo albuterol MDI, and nebs. Continue current regimen. (2) Sleep apnea: Code(s): G47.30 - Sleep apnea, unspecified Category: Medical Plan: Unrestful sleep, daytime sleepiness. [place] Sleepiness Scale score of 16. Will obtain home sleep study. Orders: Orders RT home sleep study Today G47.30 - Sleep apnea, unspecified Coding Level of Care Code Est Pt Level 4 (47653) Diagnoses Reactive airway disease J45.909 Sleep apnea G47.30
[2024-06-01 13:26] VITALS: BP 122/67; PULSE 68; O2SAT 98; BMI 34.7
--- OUTSIDE RECORDS SUMMARY | 2024-06-01 13:29 | XMS_ITS | Patient Health Record ---
Author Organization Alec Strickland III, MD Address [address] [address] Care Team Providers Care Emergency Management Consultant Name Role Phone Kesha PRECIADO, [facility] Primary Care Provider Alec Beckwith Unavailable [phone] Allergies Allergen (clinical drug ingredient) Drug/Non Drug [...] Problem Status W/U Status Risk Notes Problem 2362591 Former smoker (Z87.891) Active confirmed She has a plan for prevention of relapse in times of stress. I have counseled her about ongoing smoking cessation. Problem 87196122 Hyperlipidemia (E78.5) Active confirmed A fasting lipid profile is not available and has been requested from primary care. Problem 065395564 Asthma (J45.909) Active confirmed It is pollen season and she has occasional wheezing. This is controlled with her medications. Problem 17547509 Hepatitis C (B19.20) Active confirmed There is no sig n at this time of ongoing active infection. Problem 550700031 Anemia (D64.9) Active confirmed Her hematocrit is 34% with a normal mean cell volume. This is likely the anemia of chronic disease and will be observed. Problem 034481810 Thrombocytopenia (D69.6) Active confirmed Her platelet count is now normal at 174,000. The value will be observed. Problem 69940468 Human immunodeficiency virus [HIV] disease (B20) Active confirmed She has not developed any recent infections or HIV related neoplasms. She is compliant with the recommendations of infectious disease. The viral load is well controlled. Problem 154162510 Lobular carcinom a in situ of right breast (D05.01) Active confirmed There is no sign of recurrent disease. She is due for mammography and a study has been ordered. 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 It was thought to be reactive. Problem 82022386 Essential hypertension (I10) Active confirmed Her blood pressure has been normal. She was referred back to primary care for measurement. Problem 19108844 Depressive disorder, not elsewhere classified (F32.9) Active confirmed Her depre ssion is stable and well controlled and she is compliant with her medication. Problem 112105882 Obesity (BMI 35.0-39.9 without comorbidity) (E66.01) Active confirmed Her body mass index is 29 and I have recommended regular exercise and weight reduction through a diet restricted in calories fat in sodium. She has lost six pounds since her last visit. Problem 47761894 Sleep apnea (G47.30) Active confirmed She has been treated for this and denies any daytime somnolence. No additional therapy is necessary. She says she has been compliant with treatment Problem 546150882 H/O carpal tunne l syndrome (Z86.69) Active confirmed She has mi ld symptoms of neuropathy in her hands but these are mild and she is conducting all the activities of daily life without impairment. Problem 596467921 Chronic kidney disease, stage I (N18.1) Active confirmed Her most recent available renal functions are normal. These will be followed carefully. On June 08, 2021. The BUN was 18, creatinine was normal. Problem 52914248 Hepatitis B (B19.10) Active confirmed There is [...] Date MEDICAID [address] JEANETTE DESIR [id number] America Bower Self - patient is the [...]
--- OUTSIDE RECORDS SUMMARY | 2024-06-01 13:29 | XMS_ITS | Encounter Summary ---
Author Organization [employer] Address [address] [facility] 7t [place] [address] Care Team Providers Care Cytologist Name Role Phone Unavailable Primary Care Provider Unavailabl e Reason for Visit * Reason Onset Date Comments rs no show appt 04/13/2024 Encounter Details Date Type Department Care Team ([facility] st Contact Info) Description 04/13/2024 Telephone [facility] [address] [place] [address] Ruel Suresh rs no show appt Social [...]
--- OUTSIDE RECORDS SUMMARY | 2024-06-01 13:29 | XMS_ITS | Encounter Summary ---
Author Organization [facility] [facility] Address [address] [facility] 7t [place] [address] Care Team Providers Care Family Service Assistant Name Role Phone Unavailable Primary Care Provider [...]
--- OUTSIDE RECORDS SUMMARY | 2024-06-01 13:29 | XMS_ITS | Clinical Summary ---
Author Organization [employer] Address [address] [facility] 7t [place] [address] Care Team Providers Care Coil Winder Strap Name Role Phone Unavailable Primary Care Provider [...] by mouth at bedtime. 4 Active Genvoya [phone] MG tablet Take 1 tablet by mouth [...] Type Department Care Team Description 04/13/[address] [facility] ADULT DENTAL [address] [place] [address] Ruel Suresh rs no show appt 04/06/[address] [facility] ADULT DENTAL [address] [place] [address] Ruel Suresh from Last 3 Months Immunizations [...] 2 - Risk 2-dose series) 04/20/2007 10/18/2006 Pneumococcal Vaccine: 50+ Years (4 of 4 - PCV20 or PCV21) 02/20/2020 02/19/2015, 03/22/2012, 05/08/2006 Hepatitis B Vaccines (1 of 3 - Risk 3-dose series) 2021 RSV Patients and Patients Aged 60 years or older (1 - Risk 60-74 years 1-dose series) 2021 COVID-19 Vaccine ( - season) 2023 05/19/2021, 08/14/2020, 07/24/2020 Influenza Vaccine (#1) 2023 , 02/09/2022, 02/15/2020, Additional history exists Dental Oral Exam 04/12/2024 10/11/2023, 02/2021, 07/19/2018, Additional history exists Dental Prophylaxis 04/12/2024 10/11/2023, 0 09/27/2020, 03/01/2019, Additional history exists Tobacco Screening 10/10/2024 10/11/2023 Dental X-Ray: Bitewings 10/11/2024 10/11/19, 11/04/2021, 09/27/2020, Additional history exists Pneumococcal Vaccine: Pediatrics (0 to 5 Years) and At-Risk Patients (6 to 49) Years) (4 of 4 - PPSV23 or [...] ADULT Routine 10/11/2023 8 :00 AM EDT INTRAORAL - COMPLETE SERIES OF RADIOGRAPHIC IMAGES Routine 10/11/2023 8:00 AM EDT PERIODIC ORAL EVALUATION - ESTABLISHED PATIENT Routine 10/11/2023 8:00 AM EDT from Last 3 Months or Most Recently Relevant to Health Maintenance Insurance [facility] STANDARD DENTAL-[facility] MEDICAID STAND ADULT
== END 2024-06-01 13:47 | disposition home or self-care (01) ==
PROVIDERS: PCP Internal Medicine; Visit Provider Internal Medicine Pulmonary Disease
DX: J45.909 Unspecified asthma, uncomplicated (principal); G47.30 Sleep apnea, unspecified
CPT/HCPCS: 99214

== ENCOUNTER → 2024-06-01 13:20 | Outpatient (BNVA) | payer MEDICAID, SELFPAY | PROVIDERS: PCP Internal Medicine; Visit Provider Internal Medicine Pulmonary Disease | DX: J45.909 Unspecified asthma, uncomplicated (principal); G47.30 Sleep apnea, unspecified | CPT/HCPCS: 99212 ==

== ENCOUNTER 2024-06-09 12:41 | Outpatient (AMB) | payer MEDICAID, SELFPAY ==
--- OUTSIDE RECORDS SUMMARY | 2024-06-09 13:13 | XMS_ITS | Continuity of Care Document ---
Author Organization [facility]ad [facility] Address [address] [place] [address], [address]t [place] [address]- Care Team Providers Care Admeasurer Name Role Phone Veronica Rebolledo MD Primary Care [id number] Date[facility]s): 05/09/24 - 06/08/24 [facility] Jarad Wynns [address], [address] [place] [address]- Encounter Type: Triage Allergies, Adverse Reactions, Alerts No Known Medication Allergies Patient Care team information Care Team Personnel Name: Veronica Rebolledo MD [facility] Outreach Member Role: PCP Address: [address] [place] [address] [address] Veronica Rebolledo MD [place], [place] [address] Telecom: Insurance Providers Guarantor name: [employer] Information #: 1 Payer: [employer] Member Number: NA Policy Number: NA Group Number: NA
--- OUTSIDE RECORDS SUMMARY | 2024-06-09 13:13 | XMS_ITS | Patient Health Record ---
Author Organization Alec Strickland III, MD Address [address] [place] [address] Care Team Providers Care Outdoor Fitness Trainer Name Role Phone Kesha PRECIADO, [facility] Primary Care Provider Alec Beckwith Unavailable [phone] Allergies Allergen (clinical drug ingredient) Drug/Non Drug [...] Problem Status W/U Status Risk Notes Problem 3055378 Former smoker (Z87.891) Active confirmed She has a plan for prevention of relapse in times of stress. I have counseled her about ongoing smoking cessation. Problem 48565676 Hyperlipidemia (E78.5) Active confirmed A fasting lipid profile is not available and has been requested from primary care. Problem 758102847 Asthma (J45.909) Active confirmed It is pollen season and she has occasional wheezing. This is controlled with her medications. Problem 17873428 Hepatitis C (B19.20) Active confirmed There is no sig n at this time of ongoing active infection. Problem 508084184 Anemia (D64.9) Active confirmed Her hematocrit is 34% with a normal mean cell volume. This is likely the anemia of chronic disease and will be observed. Problem 875106535 Thrombocytopenia (D69.6) Active confirmed Her platelet count is now normal at 174,000. The value will be observed. Problem 49012316 Human immunodeficiency virus [HIV] disease (B20) Active confirmed She has not developed any recent infections or HIV related neoplasms. She is compliant with the recommendations of infectious disease. The viral load is well controlled. Problem 043034913 Lobular carcinom a in situ of right breast (D05.01) Active confirmed There is no sign of recurrent disease. She is due for mammography and a study has been ordered. 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 It was thought to be reactive. Problem 87584988 Essential hypertension (I10) Active confirmed Her blood pressure has been normal. She was referred back to primary care for measurement. Problem 51058144 Depressive disorder, not elsewhere classified (F32.9) Active confirmed Her depre ssion is stable and well controlled and she is compliant with her medication. Problem 303848495 Obesity (BMI 35.0-39.9 without comorbidity) (E66.01) Active confirmed Her body mass index is 29 and I have recommended regular exercise and weight reduction through a diet restricted in calories fat in sodium. She has lost six pounds since her last visit. Problem 18308510 Sleep apnea (G47.30) Active confirmed She has been treated for this and denies any daytime somnolence. No additional therapy is necessary. She says she has been compliant with treatment Problem 938382274 H/O carpal tunne l syndrome (Z86.69) Active confirmed She has mi ld symptoms of neuropathy in her hands but these are mild and she is conducting all the activities of daily life without impairment. Problem 903605417 Chronic kidney disease, stage I (N18.1) Active confirmed Her most recent available renal functions are normal. These will be followed carefully. On June 08, 2021. The BUN was 18, creatinine was normal. Problem 43085391 Hepatitis B (B19.10) Active confirmed There is [...] Date MEDICAID [address] JEANETTE DESIR [id number] America Bower Self - patient is the [...]
--- OUTSIDE RECORDS SUMMARY | 2024-06-09 13:13 | XMS_ITS | Encounter Summary ---
Author Organization [employer] Address [address] [facility] 7t [place] [address] Care Team Providers Care Senior Java Data Architect Name Role Phone Unavailable Primary Care Provider Unavailabl e Reason for Visit * Reason Onset Date Comments rs no show appt 04/13/2024 Encounter Details Date Type Department Care Team ([facility] st Contact Info) Description 04/13/2024 Telephone [facility] [address] [place] [address] Ruel Suresh rs no show appt Social [...]
--- OUTSIDE RECORDS SUMMARY | 2024-06-09 13:13 | XMS_ITS | Clinical Summary ---
Author Organization [email or web address] Address [address] [facility] [address]t [place] [address] Care Team Providers Care Folder Inspector Name Role Phone Unavailable Primary Care Provider [...] by mouth at bedtime. 4 Active Genvoya [phone] MG tablet Take 1 tablet by mouth [...] [facility] ADULT DENTAL [address] [place] [address] Ruel Suresh rs no show appt 04/06/2024 Telephone [facility] ADULT DENTAL [address] [place] [address] Ruel Suresh from Last 3 Months Immunizations [...] Most Recently Relevant to Health Maintenance Insurance [facility] STANDARD DENTAL-[facility] MEDICAID STAND ADULT
--- OUTSIDE RECORDS SUMMARY | 2024-06-09 13:13 | XMS_ITS | Encounter Summary ---
Author Organization [email or web address] [facility] Address [address] [facility] [address] [place] [address] Care Team Providers Care Pillowcase Folder Name Role Phone Unavailable Primary Care Provider [...]
--- NOTE | 2024-06-09 13:40 | A.OFFVIS_ITS ---
Vital Signs 06/09/24 13:41 Height 5 ft 3 in Weight 195 lb 12.328 oz BMI 34.7 BP 134/68 Blood Pressure Location Lt brachial Position Sitting Pulse 62 Pulse Source Pulse Oximeter Intake Visit Reasons: rn medical inpatient services/dr sol/other forms of dyspnea Director Food And Beverage Required: Yes Director Food And Beverage Services: Director Food And Beverage Present Director Food And Beverage Name: Kendall [id number] Accompanied by: Self / Same As Patient Allergies shellfish derived Allergy (Intermediate, Verified 06/01/24 13:31) HIVES, N/V Medication List - Last Reconciled 06/09/24 by Rafi Greene MD albuterol sulfate 2.5 mg inhalation TID PRN albuterol sulfate 90 mcg/actuation (Ventolin HFA) 2 puffs inhalation QID PRN diphenhydramine HCl 25 mg PO BEDTIME rtrgdjv-jat-eltuw-tenof alafen [phone] mg (Genvoya) 1 tab PO DAILY fluticasone furoate-vilanterol 200-25 mcg/dose (Breo Ellipta) 1 ea inhalation DAILY furosemide 20 mg PO DAILY 30 days hydrocortisone 1% (Cortisone (hydrocortisone)) 1 appl topical BID PRN ketotifen fumarate 0.025%(0.035%) 2 drps ophthalmic (eye) DAILY linaclotide (Linzess) 145 mcg PO DAILY loratadine 10 mg PO DAILY losartan 100 mg PO DAILY meclizine 12.5 mg PO TID PRN meloxicam 15 mg PO DAILY naproxen 500 mg PO BID PRN 7 days omeprazole 20 mg PO DAILY@0630 ondansetron 4 mg PO Q6H PRN pyridoxine (vitamin B6) 100 mg PO DAILY 90 days rosuvastatin 40 mg PO BEDTIME sertraline 100 mg PO DAILY PRN simethicone 180 mg PO QID 30 days triamcinolone acetonide 0.5% 1 appl topical BID PRN umeclidinium 62.5 mcg/actuation (Incruse Ellipta) 1 inh inhalation DAILY walker (Ultra-Light Rollator misc) As directed zolpidem 10 mg PO BEDTIME HPI Comments Details: This is a cardiology consultation regarding shortness of breath and chest pain. Patient denies any prior history of coronary disease or myocardial infarction or cardiomyopathy or in fact any other cardiac issues. Many comorbidities as listed below. She states that she frequently gets short of breath with exertion. She also gets chest pains that go down the left arm. Somewhat intermittent and can happen with rest or with exertion. She is here for further evaluation. She believes that her sister got some cardiac procedure, possibly stent but not clear. Per Pulmonary note, she has got reactive airway disease and sleep apnea. 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 HIV (human immunodeficiency virus infection) History of blood transfusion Anemia Hx of renal calculi Difficulty swallowing GERD (gastroesophageal reflux disease) Hepatitis Depression Sleep apnea Asthma Elevated cholesterol HTN (hypertension) Surgical History Hx of colonoscopy Hx of cystoscopy Hx of dilation and curettage Hx of section Hx of reduction mammoplasty Hx of tubal ligation Hx of cholecystectomy Family History Mother Breast cancer Father Heart problem Sister Bone cancer Family/Other Diabetes Social History Household Members: Family Housing: Apartment Housing Other:: lives alone, son staying with her Are you a primary senior care manager to a significant other at home: No Do you presently have visiting nurse or other home services: No Unable to assess alcohol history related to: Unknown Alcohol intake: current Alcohol intake frequency: holidays/special occasions only Alcohol type: wine Comment: low falls risk Patient Tobacco Use Status: Former Tobacco user Tobacco use type: Cigarette Cigarette Packs Per Day: 2 Cigarettes Per Day: 40.0 Years Smoked: 40 e-Cigarette/Vaping Use: Never Used Second Hand Smoke Exposure: No Substance Use Type: Former Substance User service: No Sexual orientation: Straight/Heterosexual Gender identity: Female Female Reproductive History Menstrual Age of Menarche: 12 Review of Systems Const Denies chills, Denies daytime sleepiness, Denies fatigue, Denies fever(s), Denies poor appetite, Denies snoring, Denies stops breathing during sleep, Denies weakness, Denies weight gain and Denies weight loss Eyes Denies loss of vision ENT Denies dizziness and Denies hearing loss Card Denies chest pain, Denies irregular heart rhythm, Denies claudication, Denies leg edema, Denies lightheadedness, Denies palpitations, Denies dyspnea on exertion and Denies orthopnea Resp Denies cough, Denies excessive phlegm production, Denies dyspnea on exertion, Denies snoring and Denies wheezing GI Denies abdominal pain, Denies hematochezia, Denies change in bowel habits, Denies nausea and Denies vomiting Denies urinary frequency and Denies dysuria Musc Denies arthralgias, Denies muscle weakness, Denies numbness and Denies other Skin/Breast Denies nail changes and Denies rash Neuro Denies Abnormal speech present, Denies dizziness, Denies loss of vision, Denies memory loss, Denies numbness and Denies weakness Psych Denies depression and Denies memory loss Endo Denies fatigue and Denies palpitations Flaquito/Lymph Denies easy bruising Aller/Immun Denies wheezing Physical Exam Vital Signs: Last Vital Signs Pulse 62 06/09/24 13:41 BP 134/68 06/09/24 13:41 BMI result Body Mass Index 34.7 Const General: comfortable and no acute distress Orientation/consciousness: patient oriented x3 HEENT Other: Unremarkable Head: Yes normal to inspection Neck Neck: Yes normal visual inspection Chest Chest palpation & inspection: normal inspection of the chest Resp Auscultation: rhonchi Cardio Palpation: normal PMI Heart sounds: S1 normal heart sound present, S2 normal heart sound present, no gallops, no murmurs and no rubs GI Palpation (GI): Soft to palpation Back/Spine/Pelvis Other: unremarkable Skin General skin exam: no rashes or lesions noted Neuro General: patient oriented x3 Speech: No Abnormal speech present Extrem General: Yes normal to inspection Psych Mental Status: mental status grossly normal Assessment & Plan Assessment & Plan (1) Precordial chest pain: Code(s): R07.2 - Precordial pain Category: Medical (2) Shortness of breath: Code(s): R06.02 - Shortness of breath Category: Medical Plan Cardiac studies reviewed. EKG with underlying sinus rhythm at 84/Min; leftward axis; no significant ST-T changes; normal DE and corrected QT. In the echocardiogram from 2022, LVEF is 62%. Normal diastolic function. No significant valvular abnormalities. On exam, she has got some wheezing in the lung ortiz. Shortness of breath possibly respiratory in nature as she had normal systolic/diastolic function on echocardiogram. With regard to chest pain, etiology is not clear. We will assess for any obstructive CAD. Plan for coronary CTA. Follow-up after the above. Orders: Orders CT Cardiac Coronary Angio Today I25.10 - Atherosclerotic heart disease of [place] coronary artery without angina pectoris Basic Metabolic Panel Today R06.09 - Other forms of dyspnea Coding Level of Care Code New Pt Level 4 (72816) Complex EM visit Add On G2211 Diagnoses Precordial chest pain R07.2 Shortness of breath R06.02
[2024-06-09 13:41] VITALS: BP 134/68; PULSE 62; BMI 34.7
== END 2024-06-09 14:17 | disposition home or self-care (01) ==
PROVIDERS: PCP Internal Medicine; Visit Provider Internal Medicine
DX: R07.2 Precordial pain (principal); R06.02 Shortness of breath
CPT/HCPCS: 99214

== ENCOUNTER → 2024-06-09 12:41 | Outpatient (BNVA) | payer MEDICAID, SELFPAY | PROVIDERS: PCP Internal Medicine; Visit Provider Internal Medicine | DX: R07.2 Precordial pain (principal); R06.02 Shortness of breath | CPT/HCPCS: 99212 ==

== ENCOUNTER 2024-06-14 14:35 | Outpatient (REF) | payer MEDICAID, SELFPAY ==
[2024-06-14 14:48] LABS: MANUAL DIFF FLAG NO
[2024-06-14 15:29] LABS: Basophils Percent Auto 0.3 % (0-2); Eosinophils Absolute Auto 0.2 X10*3/uL (0.0-0.4); Eosinophils Percent Auto 2.3 % (0-4); Hematocrit 37.3 % (37.0-47.0); Hemoglobin 12.5 g/dl (12.0-16.0); Imm Gran Abs Auto 0.02 X10*3/uL (0.00-0.03); Imm Gran Pct Auto 0.3 % (0.0-0.4); Lymphocytes Absolute Auto 1.4 X10*3/uL (1.2-4.9); Lymphocytes Percent Auto 19.4 % (20-40); Mean Corpuscular HGB Conc 33.5 g/dl (31.0-35.0); Mean Corpuscular Hemoglobin 29.5 pg (27.0-33.0); Mean Platelet Volume 11.3 fL (9.4-12.3); Monocytes Absolute Auto 0.4 X10*3/uL (0.1-1.2); Monocytes Percent Auto 5.7 % (2-11); Neutrophils Absolute Auto 5.4 x10*3/uL (2.0-8.3); Platelet Count 217 X10*3/uL (160-400); Red Blood Count 4.24 X10*6/uL (4.20-5.50); Red Cell Distribution Width 13.6 % (11.0-16.0); White Blood Count 7.4 X10*3/uL (4.8-10.8)
[2024-06-14 16:49] LABS: Alanine Aminotransferase 19 U/L (0-31); Albumin Level 4.2 g/dL (3.5-5.0); Alkaline Phosphatase 66 U/L (39-117); Anion Gap 11 (12-20); Aspartate Amino Transferase 21 U/L (5-31); Bilirubin Total 0.3 mg/dL (0.0-1.0); Blood Urea Nitrogen 22 mg/dL (9-16); Calcium 9.4 mg/dL (8.4-10.2); Carbon Dioxide 26 mmol/L (22-29); Chloride 108 mmol/L (96-108); Estimated Glomerular Filt Rate > 60; Glucose Random 86 mg/dL (60-115); Potassium 4.1 mmol/L (3.3-5.1); Sodium 141 mmol/L (135-145); Total Protein 8.2 g/dL (6.5-8.0)
--- OUTSIDE RECORDS SUMMARY | 2024-06-14 18:01 | XMS_ITS | Patient Health Record ---
Author Organization Alec Strickland III, MD Address [address] [place] [address] Care Team Providers Care Manager Product Support Name Role Phone Kesha PRECIADO, [facility] Primary Care Provider Alec Beckwith Unavailable [phone] Allergies Allergen (clinical drug ingredient) Drug/Non Drug [...] Problem Status W/U Status Risk Notes Problem 1545265 Former smoker (Z87.891) Active confirmed She has a plan for prevention of relapse in times of stress. I have counseled her about ongoing smoking cessation. Problem 64051912 Hyperlipidemia (E78.5) Active confirmed A fasting lipid profile is not available and has been requested from primary care. Problem 817493518 Asthma (J45.909) Active confirmed It is pollen season and she has occasional wheezing. This is controlled with her medications. Problem 74661887 Hepatitis C (B19.20) Active confirmed There is no sig n at this time of ongoing active infection. Problem 480917169 Anemia (D64.9) Active confirmed Her hematocrit is 34% with a normal mean cell volume. This is likely the anemia of chronic disease and will be observed. Problem 217710744 Thrombocytopenia (D69.6) Active confirmed Her platelet count is now normal at 174,000. The value will be observed. Problem 37687452 Human immunodeficiency virus [HIV] disease (B20) Active confirmed She has not developed any recent infections or HIV related neoplasms. She is compliant with the recommendations of infectious disease. The viral load is well controlled. Problem 286374531 Lobular carcinom a in situ of right breast (D05.01) Active confirmed There is no sign of recurrent disease. She is due for mammography and a study has been ordered. 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 It was thought to be reactive. Problem 70538646 Essential hypertension (I10) Active confirmed Her blood pressure has been normal. She was referred back to primary care for measurement. Problem 41201334 Depressive disorder, not elsewhere classified (F32.9) Active confirmed Her depre ssion is stable and well controlled and she is compliant with her medication. Problem 549190987 Obesity (BMI 35.0-39.9 without comorbidity) (E66.01) Active confirmed Her body mass index is 29 and I have recommended regular exercise and weight reduction through a diet restricted in calories fat in sodium. She has lost six pounds since her last visit. Problem 65646689 Sleep apnea (G47.30) Active confirmed She has been treated for this and denies any daytime somnolence. No additional therapy is necessary. She says she has been compliant with treatment Problem 763829990 H/O carpal tunne l syndrome (Z86.69) Active confirmed She has mi ld symptoms of neuropathy in her hands but these are mild and she is conducting all the activities of daily life without impairment. Problem 070350430 Chronic kidney disease, stage I (N18.1) Active confirmed Her most recent available renal functions are normal. These will be followed carefully. On June 08, 2021. The BUN was 18, creatinine was normal. Problem 57145614 Hepatitis B (B19.10) Active confirmed There is [...] Date MEDICAID [address] JEANETTE DESIR [id number] [phone] [id number] America Bower Self - patient is the [...]
--- OUTSIDE RECORDS SUMMARY | 2024-06-14 18:01 | XMS_ITS | Encounter Summary ---
Author Organization [employer] [facility] Address [address] [place] [address] Care Team Providers Care Vegetable Canner Name Role Phone Unavailable Primary Care Provider [...]
--- OUTSIDE RECORDS SUMMARY | 2024-06-14 18:01 | XMS_ITS | Clinical Summary ---
Author Organization [employer] Address [address] [place] [address] Care Team Providers Care Coordinator Of Evaluation Name Role Phone Unavailable Primary Care Provider [...] by mouth at bedtime. 4 Active Genvoya [phone] MG tablet Take 1 tablet by mouth [...] Care Team Description 04/13/2024 Telephone [facility] ADULT DENTAL [address] [place] [address] Ruel Suresh rs no show appt 04/06/2024 Telephone [facility] ADULT DENTAL [address] [place] [address] Ruel Suresh from Last 3 Months Immunizations [...] Recently Relevant to Health Maintenance Insurance [facility] STANDARD DENTAL-[facility] MEDICA[facility] STAND ADULT
--- OUTSIDE RECORDS SUMMARY | 2024-06-14 18:01 | XMS_ITS | Encounter Summary ---
Author Organization [employer] Address [address] [place] [address] Care Team Providers Care Grant Manager Name Role Phone Unavailable Primary Care Provider Unavailabl e Reason for Visit * Reason Onset Date Comments rs no show appt 04/13/2024 Encounter Details Date Type Department Care Team ([facility] st Contact Info) Description 04/13/2024 Telephone [facility] [address] [place] [address] Ruel Suresh rs no show appt Social [...]
[2024-06-17 01:34] LABS: TS Negative Control Passed; TS Panel A 0; TS Panel B 0; TS Positive Control Passed; TSpotTB Negative (Negative)
== END 2024-06-14 14:36 | disposition home or self-care (01) ==
LOC: HO.LAB 14:35
PROVIDERS: PCP Internal Medicine; Visit Provider Internal Medicine
DX: B20 Human immunodeficiency virus [HIV] disease (principal); Z00.00 Encounter for general adult medical examination without abnormal findings; I10 Essential (primary) hypertension; J84.9 Interstitial pulmonary disease, unspecified; N95.0 Postmenopausal bleeding
CPT/HCPCS: 36415; 80053; 85025; 86481

== ENCOUNTER 2024-06-16 11:30 | Outpatient (REF) | payer MEDICAID, SELFPAY ==
[2024-06-16 12:17] LABS: Appearance Urine Cloudy; Color Urine Yellow; Glucose Urine UA Negative (Negative); Leukocyte Esterase Urine Large (3+) (Negative); Nitrite Urine Positive (Negative); Specific Gravity - Urine 1.015 (1.005-1.025); UMIC TRIGGER UA YES; Urine Blood Small (1+) (Negative); Urine Ketones Negative (Negative); Urine Protein 30 (1+) mg/dL (Neg-Trace)
[2024-06-16 12:23] LABS: Bacteria Urine 4+ (None Seen); Hyaline Casts Urine 0-2 /LPF (0-2); Squamous Epithelial Cell Urine 0-2 /HPF (0-2); WBC Urine >50 /HPF (0-5)
[2024-06-16 12:50] LABS: Anion Gap 10 (12-20); Blood Urea Nitrogen 21 mg/dL (9-16); Calcium 9.3 mg/dL (8.4-10.2); Carbon Dioxide 25 mmol/L (22-29); Chloride 111 mmol/L (96-108); Estimated Glomerular Filt Rate > 60; Glucose Random 80 mg/dL (60-115); Potassium 4.2 mmol/L (3.3-5.1); Sodium 142 mmol/L (135-145)
--- OUTSIDE RECORDS SUMMARY | 2024-06-16 13:48 | XMS_ITS | Clinical Summary ---
Author Organization [employer] Address [address] [place] [address] Care Team Providers Care Vector Control Specialist Name Role Phone Unavailable Primary Care [...] by mouth at bedtime. 4 Active Genvoya [phone] MG tablet Take 1 tablet by mouth [...] Type Department Care Team Description 04/13/2024 Telephone [facility] ADULT DENTAL [address] [place] [address] Ruel Sruesh rs no show appt 04/06/2024 Telephone [facility] ADULT DENTAL [address] [place] [address] Ruel Suresh from Last 3 Months Immunizations [...] Most Recently Relevant to Health Maintenance Insurance [facility] ST[facility] DENTAL-[facility] MEDICAID STAND ADULT
--- OUTSIDE RECORDS SUMMARY | 2024-06-16 13:48 | XMS_ITS | Encounter Summary ---
Author Organization [employer] Address [address] [place] [address] Care Team Providers Care Digital Design Engineer Name Role Phone Unavailable Primary Care Provider Unavailabl e Reason for Visit * Reason Onset Date Comments rs no show appt 04/13/2024 Encounter Details Date Type Department Care Team ([facility] st Contact Info) Description 04/13/2024 Telephone [facility] [address] [place] [address] Ruel Suresh rs no show appt Social [...]
--- OUTSIDE RECORDS SUMMARY | 2024-06-16 13:48 | XMS_ITS | Encounter Summary ---
Author Organization [employer] [facility] Address [address] [place] [address] Care Team Providers Care Outreach Clinician Name Role Phone Unavailable Primary Care Provider [...]
--- OUTSIDE RECORDS SUMMARY | 2024-06-16 13:48 | XMS_ITS | Patient Health Record ---
Author Organization Alec Strickland III, MD Address [address] [place] [address] Care Team Providers Care Necktie Centralizing Machine Operator Name Role Phone Kesha PRECIADO, [facility] Primary Care Provider Alec Beckwith Unavailable [phone] Allergies Allergen (clinical drug ingredient) Drug/Non Drug [...] Problem Status W/U Status Risk Notes Problem 0116974 Former smoker (Z87.891) Active confirmed She has a plan for prevention of relapse in times of stress. I have counseled her about ongoing smoking cessation. Problem 80551555 Hyperlipidemia (E78.5) Active confirmed A fasting lipid profile is not available and has been requested from primary care. Problem 668155210 Asthma (J45.909) Active confirmed It is pollen season and she has occasional wheezing. This is controlled with her medications. Problem 98467182 Hepatitis C (B19.20) Active confirmed There is no sig n at this time of ongoing active infection. Problem 581118948 Anemia (D64.9) Active confirmed Her hematocrit is 34% with a normal mean cell volume. This is likely the anemia of chronic disease and will be observed. Problem 277915133 Thrombocytopenia (D69.6) Active confirmed Her platelet count is now normal at 174,000. The value will be observed. Problem 62921003 Human immunodeficiency virus [HIV] disease (B20) Active confirmed She has not developed any recent infections or HIV related neoplasms. She is compliant with the recommendations of infectious disease. The viral load is well controlled. Problem 321112730 Lobular carcinom a in situ of right breast (D05.01) Active confirmed There is no sign of recurrent disease. She is due for mammography and a study has been ordered. 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 It was thought to be reactive. Problem 47174485 Essential hypertension (I10) Active confirmed Her blood pressure has been normal. She was referred back to primary care for measurement. Problem 80274924 Depressive disorder, not elsewhere classified (F32.9) Active confirmed Her depre ssion is stable and well controlled and she is compliant with her medication. Problem 335925727 Obesity (BMI 35.0-39.9 without comorbidity) (E66.01) Active confirmed Her body mass index is 29 and I have recommended regular exercise and weight reduction through a diet restricted in calories fat in sodium. She has lost six pounds since her last visit. Problem 67701933 Sleep apnea (G47.30) Active confirmed She has been treated for this and denies any daytime somnolence. No additional therapy is necessary. She says she has been compliant with treatment Problem 806310446 H/O carpal tunne l syndrome (Z86.69) Active confirmed She has mi ld symptoms of neuropathy in her hands but these are mild and she is conducting all the activities of daily life without impairment. Problem 608680096 Chronic kidney disease, stage I (N18.1) Active confirmed Her most recent available renal functions are normal. These will be followed carefully. On June 08, 2021. The BUN was 18, creatinine was normal. Problem 91946281 Hepatitis B (B19.10) Active confirmed There is [...] Date MEDICAID [address] JEANETTE DESIR [id number] America Bower Self - patient is the [...]
== END 2024-06-16 11:31 | disposition home or self-care (01) ==
LOC: HO.LAB 11:30
PROVIDERS: Absent Provider Internal Medicine; PCP Internal Medicine; Visit Provider Urology
DX: R06.09 Other forms of dyspnea (principal); N39.0 Urinary tract infection, site not specified
CPT/HCPCS: 36415; 80048; 81001; 87086

== ENCOUNTER → 2024-06-20 09:24 | Outpatient (BNVA) | payer MEDICAID, SELFPAY | PROVIDERS: PCP Internal Medicine; Visit Provider Urology ==

== ENCOUNTER 2024-06-20 09:55 | Outpatient (REF) | payer MEDICAID, SELFPAY ==
--- NOTE | ~2024-06-20 | XR_ITS ---
EXAMINATION: XR KNEE, RIGHT CLINICAL INFORMATION: M17.11 - Unilateral primary osteoarthritis, right knee COMPARISON: April 19, 2024. TECHNIQUE: Three views of the right knee. FINDINGS: Joint space narrowing involving the medial and lateral compartment and to a lesser extent the patellofemoral. Sclerosis at the articular surface of the tibial plateaus femoral condyles mostly on the lateral compartment. Small marginal osteophyte formation and lateral femoral condyle and lateral tibial plateau. Exostosis at the quadriceps tendon insertion. No suprapatellar bursa joint effusion. No acute cortical disruption or malalignment. No lytic or blastic lesions. XR/XR knee RT 3V IMPRESSION: Tricompartmental osteoarthrosis involving mostly the lateral compartment. Enthesopathy, quadriceps tendon insertion. Electronically signed by: Sukh Becker MD 06/22/2024 11:37 AM [facility]ARD[facility]
--- OUTSIDE RECORDS SUMMARY | 2024-06-20 11:50 | XMS_ITS | Encounter Summary ---
Author Organization [facility] Address [address] [place] [address] Care Team Providers Care Looper Fixer Name Role Phone Unavailable Primary Care Provider [...]
--- OUTSIDE RECORDS SUMMARY | 2024-06-20 11:50 | XMS_ITS | Clinical Summary ---
Author Organization [employer] Address [address] [place] [address] Care Team Providers Care Pathological Technician Name Role Phone Unavailable Primary Care Provider [...] by mouth at bedtime. 4 Active Genvoya [phone] MG tablet Take 1 tablet by mouth [...] Type Department Care Team Description 04/13/2024 Telephone [facility] ADULT DENTAL [address] [place] [address] Ruel Suresh rs no show appt 04/06/2024 Telephone [facility] ADULT DENTAL [address] [place] [address] Ruel Suresh from Last 3 Months Immunizations [...] Most Recently Relevant to Health Maintenance Insurance [facility] STANDARD DENTAL-[facility] MEDICAID STAND ADULT
--- OUTSIDE RECORDS SUMMARY | 2024-06-20 11:50 | XMS_ITS | Encounter Summary ---
Author Organization [employer] Address [address] [place] [address] Care Team Providers Care Bulb Weeder Name Role Phone Unavailable Primary Care Provider Unavailabl e Reason for Visit * Reason Onset Date Comments rs no show appt 04/13/2024 Encounter Details Date Type Department Care Team ([facility] st Contact Info) Description 04/13/2024 Telephone [facility] [address] [place] [address] Ruel Suresh rs no show appt Social [...]
== END 2024-06-20 09:56 | disposition home or self-care (01) ==
LOC: HO.XRAY 09:55
PROVIDERS: PCP Internal Medicine; Visit Provider Physician Assistant
DX: M17.11 Unilateral primary osteoarthritis, right knee (principal); R87.612 Low grade squamous intraepithelial lesion on cytologic smear of cervix (LGSIL)
CPT/HCPCS: 73562; 99212

== ENCOUNTER → 2024-06-20 10:00 | Outpatient (BNV) | payer MEDICAID, SELFPAY | PROVIDERS: PCP Internal Medicine; Visit Provider Radiology Diagnostic Radiology | DX: M17.11 Unilateral primary osteoarthritis, right knee (principal) | CPT/HCPCS: 73562 ==

== ENCOUNTER 2024-06-20 10:15 | Outpatient (AMB) | payer MEDICAID, SELFPAY ==
[2024-06-20 10:41] VITALS: BMI 34.5
--- NOTE | 2024-06-20 10:41 | A.OFFVIS_ITS ---
Vital Signs 06/20/24 10:41 Height 5 ft 3 in Weight 195 lb BMI 34.5 Intake Visit Reasons: Colpo results Senior Cost Analyst Required: Yes Senior Cost Analyst Language: Millwork Estimator Services: Senior Cost Analyst Present (in person) Senior Cost Analyst Name: Leigh DIAZ Information Interpreted: non-clinical & clinical Accompanied by: Self / Same As Patient Allergies shellfish derived Allergy (Intermediate, Verified 06/20/24 10:43) HIVES, N/V Post menopausal: Yes HPI Comments Details: Presenting post colpo for follow-up. The patient is doing well with no complaints. The pathology showed the following: A. Cervix, 1 o'clock, biopsy: Inflamed cervical transformation zone mucosa with reactive changes. B. Cervix, 5 o'clock, biopsy: Inflamed cervical transformation zone mucosa with reactive changes. C. Cervix, 7 o'clock, biopsy: Inflamed cervical transformation zone mucosa with reactive changes. D. Cervix, 12 o'clock, biopsy: Inflamed cervical transformation zone mucosa with reactive changes. E. Endocervix, curettage: - Squamous epithelium within normal limits. 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 HIV (human immunodeficiency virus infection) History of blood transfusion Anemia Hx of renal calculi Difficulty swallowing GERD (gastroesophageal reflux disease) Hepatitis Depression Sleep apnea Asthma Elevated cholesterol HTN (hypertension) Surgical History Hx of colonoscopy Hx of cystoscopy Hx of dilation and curettage Hx of section Hx of reduction mammoplasty Hx of tubal ligation Hx of cholecystectomy Family History Mother Breast cancer Father Heart problem Sister Bone cancer Family/Other Diabetes Social History Household Members: Family Housing: Apartment Housing Other:: lives alone, son staying with her Are you a primary human services care specialist to a significant other at home: No Do you presently have visiting nurse or other home services: No Unable to assess alcohol history related to: Unknown Alcohol intake: current Alcohol intake frequency: holidays/special occasions only Alcohol type: wine Comment: low falls risk Patient Tobacco Use Status: Former Tobacco user Tobacco use type: Cigarette Cigarette Packs Per Day: 2 Cigarettes Per Day: 40.0 Years Smoked: 40 e-Cigarette/Vaping Use: Never Used Second Hand Smoke Exposure: No Substance Use Type: Former Substance User service: No Sexual orientation: Straight/Heterosexual Gender identity: Female Female Reproductive History Menstrual Age of Menarche: 12 Review of Systems Const All systems reviewed & are unremarkable except as noted in HPI and below Reports as per HPI and Reports no additional complaints GI Reports no additional complaints Reports no additional complaints Physical Exam Vital Signs: BMI result Body Mass Index 34.5 Assessment & Plan Assessment & Plan (1) LGSIL on Pap smear of cervix: Code(s): R87.612 - Low grade squamous intraepithelial lesion on cytologic smear of cervix (LGSIL) Category: Medical Plan: Discussed with the patient the pathology results of the colposcopy biopsies & endocervical curettage (negative). Discussed with the patient the sensitivity specificity, positive and negative predictive value in detecting cervical cancer in addition discussed the regression, persistence and progression rates. Recommended co-testing in 12 months, if cytology and or HPV are abnormal will proceed was colposcopy biopsy and endocervical curettage. Instructions given to the patient to schedule a co test appointment in 1 year. All questions answered the patient verbalized understanding. Medications: Discontinued nitrofurantoin monohyd/m-cryst 100 mg (Macrobid) must administer with a meal/food Discontinued Reason: Patient Completed Course 100 mg PO BID 3 days 6 caps 0RF Coding Level of Care Code Est Pt Level 3 (02683) Diagnoses LGSIL on Pap smear of cervix R87.612
--- OUTSIDE RECORDS SUMMARY | 2024-06-20 12:24 | XMS_ITS | Clinical Summary ---
Author Organization [employer] Address [address] [facility] [address] [place] [address] Care Team Providers Care Community Education Coordinator Name Role Phone Unavailable Primary Care Provider [...] by mouth at bedtime. 4 Active Genvoya [phone] MG tablet Take 1 tablet by mouth [...] Type Department Care Team Description 04/13/2024 Telephone [facility] ADULT D[facility]AL [address] [place] [address] Ruel Suresh rs no show appt 04/06/2024 Telephone [facility] AD[facility] [address] [place] [address] Ruel Suresh from Last 3 Months Immunizations [...] Most Recently Relevant to Health Maintenance Insurance [facility] STANDARD DENTAL-[facility] MEDICAID STAND ADULT
--- OUTSIDE RECORDS SUMMARY | 2024-06-20 12:24 | XMS_ITS | Encounter Summary ---
Author Organization [employer] [facility] Address [address] [facility] [address] [place] [address] Care Team Providers Care Handle Maker Name Role Phone Unavailable Primary Care Provider [...]
--- OUTSIDE RECORDS SUMMARY | 2024-06-20 12:24 | XMS_ITS | Encounter Summary ---
Author Organization [employer] Address [address] [facility] [address] [place] [address] Care Team Providers Care Slurry Control Operator Helper Name Role Phone Unavailable Primary Care Provider Unavailabl e Reason for Visit * Reason Onset Date Comments rs no show appt 04/13/2024 Encounter Details Date Type Department Care Team ([facility] st Contact Info) Description 04/13/2024 Telephone [facility] [address] [place] [address] Ruel Suresh rs no show appt Social [...]
== END 2024-06-20 11:01 | disposition home or self-care (01) ==
LOC: HO.HWS 10:15
PROVIDERS: PCP Internal Medicine; Visit Provider Obstetrics & Gynecology
DX: R87.612 Low grade squamous intraepithelial lesion on cytologic smear of cervix (LGSIL) (principal)
CPT/HCPCS: 99213

== ENCOUNTER → 2024-06-30 10:44 | Outpatient (BNVA) | payer MEDICAID, SELFPAY | PROVIDERS: PCP Internal Medicine; Visit Provider Internal Medicine Pulmonary Disease ==

== ENCOUNTER 2024-07-27 12:54 | Outpatient (REF) | payer MEDICAID, SELFPAY ==
[2024-07-27 16:42] LABS: Urine Cytology See Pathology rpt
--- OUTSIDE RECORDS SUMMARY | 2024-07-27 17:31 | XMS_ITS | Encounter Summary ---
Author Organization [employer] [facility] Address [address] [facility] [address] [place] [address] Care Team Providers Care Box Annealer Name Role Phone Unavailable Primary Care Provider [...]
--- OUTSIDE RECORDS SUMMARY | 2024-07-27 17:31 | XMS_ITS | Encounter Summary ---
Author Organization [employer] Address [address] [facility] [address] [place] [address] Care Team Providers Care Soft Work Wrapper Layer And Examiner Name Role Phone Unavailable Primary Care Provider Unavailabl e Reason for Visit * Reason Onset Date Comments rs no show appt 04/13/2024 Encounter Details Date Type Department Care Team ([facility] st Contact Info) Description 04/13/2024 Telephone [facility] [address] [place] [address] Ruel Suresh rs no show appt Social [...]
--- OUTSIDE RECORDS SUMMARY | 2024-07-27 17:31 | XMS_ITS | Clinical Summary ---
Author Organization [employer] Address [address] [facility] [address] [place] [address] Care Team Providers Care General Office Clerk Name Role Phone Unavailable Primary Care Provider [...] by mouth at bedtime. 4 Active Genvoya [phone] MG tablet Take 1 tablet by mouth [...] Most Recently Relevant to Health Maintenance Insurance [facility] STANDARD DENTAL-[facility] MEDICAID STAND ADULT
== END 2024-07-27 12:55 | disposition home or self-care (01) ==
LOC: HO.LNP 12:54
PROVIDERS: PCP Internal Medicine; Visit Provider Urology
DX: R31.29 Other microscopic hematuria (principal); N39.0 Urinary tract infection, site not specified
CPT/HCPCS: 87086; 88112

== ENCOUNTER 2024-07-27 12:54 | Outpatient (AMB) | payer MEDICAID, SELFPAY ==
--- NOTE | 2024-07-27 13:42 | MHC.OFFVIS ---
Intake Visit Reasons: Cystoscopy Intake Note: Patient is present for cystoscopy Urology Medication:VITAMIN B6 Antibiotic Allergy:NONE Blood Thinner:NONE Back Hoe Machine Operator Required: Yes Back Hoe Machine Operator Language: Manager Parking Services: Back Hoe Machine Operator Present Back Hoe Machine Operator Name: Maribel Gifford Information Interpreted: non-clinical & clinical Allergies shellfish derived Allergy (Intermediate, Verified 09/12/24 13:31) HIVES, N/V HPI Comments Details: 07/27/24--America is a 63-year-old female is being followed for nephrolithiasis, recurrent UTI's, pelvic pain. America is a 63-year-old female is being followed for nephrolithiasis, recurrent UTI's, pelvic pain. Here for office cystoscopy--cystoscopy findings:erythematous changes, without distinct papillary lesions visualized, urine testing will be sent (cytology), discussed low-dose suppressive antibiotic therapy. Follow-up in 10-12 weeks renal ultrasound prior. 04/28/24--America is a 64 year old female who is followed for kidney stones and recurrent UTIs. She complains suprapubic pressure urinary frequency. Recurrent utis. Urine is nitrite positive. Will send urine culture and urine cytology. Plan follow-up cystoscopy consider antibiotic suppressive therapy. 12/28/23--s/p left ESWL on 10/20/23, reviewed FU renal US and KUB, left renal calculi, demonstrated with reduced stone burden, right renal calculi noted that was not seen on previous CTAP in July,, this year and I question accuracy. The patient complains of burning with urination. UA is nitrite positive. Will empirically prescribe Macrobid. FU in 4months, monitor UA, renal US in one year. --America is a 63-year-old female is being followed for nephrolithiasis, recurrent UTI's, pelvic pain. Reviewed CT KUB --07/28/23--right kidney is unremarkable. several nonobstructing left renal calculi. There are at least 5 calculi, ranging in size from 3 mm to 5 mm in the mid to lower pole. No left hydronephrosis or hydroureter. Discussed Left ESWL. Discussed risks to include but not limited to, blood in the urine, bruising to the skin, kidney hematoma, possible need for another procedure if a stone fragment obstructs the ureter while passing, possible need to repeat procedure if stone is not completely fragmented. Certified lockstitch waistline joiner present. 06/14/23--[place]-speaking female, certified lockstitch waistline joiner present, the patient was placed on suppressive nitrofurantoin 50 mg daily for chronic cystitis. She states that painful urination has improved. She has a history of bilateral kidney stones she denies gross blood in the urine. Urinalysis today -- leukocytes 1+, blood 1+. Macrobid 50 mg daily suppressive Abx therapy. Surveillance urine culture. Monitor kidney stones renal ultrasound and KUB follow-up in 3 months 04/15/23-- she is s/p outpatient cystoscopy - findings c/w cystitis follicularis. The patient was started on Macrobid. urine c/s sent reviewed. Certified lockstitch waistline joiner was present during the visit. The patient states bladder pain is improving. I have discussed continue macrobid antibiotic suppressive therapy. Her past medical history includes nicotine dependency, fibromyalgia, approximate 30 pack year smoker with underlying history of HIV on antivirals under the care of [facility], Breast cancer s/p lumpectomy in 2013 and multiple occurrences of hospitalizations for pneumonia, who is followed by Pulmonary. CAT scan done on 09/18/22 noting bilateral kidney stones.?--done without IV contrast -- Multiple 1 mm right kidney stones and multiple left kidney stones, the largest measuring 6 mm.? 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 HIV (human immunodeficiency virus infection) History of blood transfusion Anemia Hx of renal calculi Difficulty swallowing GERD (gastroesophageal reflux disease) Hepatitis Depression Sleep apnea Asthma Elevated cholesterol HTN (hypertension) Surgical History Hx of colonoscopy Hx of cystoscopy Hx of dilation and curettage Hx of section Hx of reduction mammoplasty Hx of tubal ligation Hx of cholecystectomy Family History Mother Breast cancer Father Heart problem Sister Bone cancer Family/Other Diabetes Social History Household Members: Family Housing: Apartment Housing Other:: lives alone, son staying with her Are you a primary rn medicare to a significant other at home: No Do you presently have visiting nurse or other home services: No Unable to assess alcohol history related to: Unknown Alcohol intake: current Alcohol intake frequency: holidays/special occasions only Alcohol type: wine Comment: low falls risk Patient Tobacco Use Status: Former Tobacco user Tobacco use type: Cigarette Cigarette Packs Per Day: 2 Cigarettes Per Day: 40.0 Years Smoked: 40 e-Cigarette/Vaping Use: Never Used Second Hand Smoke Exposure: No Substance Use Type: Former Substance User service: No Sexual orientation: Straight/Heterosexual Gender identity: Female Female Reproductive History Menstrual Age of Menarche: 12 Office Procedures Cystoscopy Consent Discussed risk and benefit or proposed procedure with the patient. Information consent for procedure given to the patient. Discussed technical aspects, risks, benefits and alternatives in full. Addressed all of the patient's questions and concerns regarding the procedure. The patient demonstrated knowledge and understanding. They wish to proceed with this procedure. Preparation The patient was prepped in the usual manner. A video recorder mechanic was present and in the room. Genitalia was prepped with betadine solution in a sterile manner. Lidocaine Jelly 2% was placed into the urethra and 16Fr flexible Olympus cystoscope was inserted into the meatus after adequate lubrication. Procedure Time out per protocol performed. Speculum used as indicated for adequate visualization of urethra, the flexible cystoscope is passed transurethrally: The bladder was inspected in its entirety with utilization retroflexion displaying: Tumor(s): erythematous changes, without distinct papillary lesions visualized, urine testing will be sent (cytology) Trabeculation: NA Mucosal Erthema: moderate, bullous changes suggestive of cystitis Orifices: normal shape and position Urethra: normal [id number] DISPOSABLE SCOPE URO-G FLEXIBLE SCOPE Procedure code (CPT) selection complete Office Meds lidocaine HCl 2 % mucosal jelly in applicator Performing Provider: Cornelia Fields MD [facility] Administered by: Jocelynn Akins RN on 07/27/24 14:10 Dose Route Admin Location Dispensed Lot Number Expiration Date [facility] Wardrobe Supervisor 10 mL intra-urethral 10 mL ciprofloxacin HCl 500 mg tablet Performing Provider: Corneila Fields MD Performing Location: [facility] Administered by: Jocelynn Akins RN on 07/27/24 14:10 Dose Route Admin Location Dispensed Lot Number Expiration Date [facility] Wardrobe Supervisor 500 mg PO 1 tab phenazopyridine 200 mg tablet Performing Provider: Cornelia Fields MD Performing Location: [facility] Administered by: Jocelynn Akins RN on 07/27/24 14:10 Dose Route Admin Location Dispensed Lot Number Expiration Date [facility] Wardrobe Supervisor 200 mg PO 1 tab Results AMB Urinalysis, Automated UA Leukoctes 0 Og/uL Last Edit by Leydi Garcia on 07/27/24 16:04 UA Nitrite Negative Last Edit by Leyid Garcia on 07/27/24 16:04 UA Urobilinogen 0.2 mg/dL Last Edit by Leydi Garcia on 07/27/24 16:04 UA Protein 0 mg/dL Last Edit by Leydi Garcia on 07/27/24 16:04 UA pH 6.5 Last Edit by Leydi Garcia on 07/27/24 16:04 UA Blood 0 [place]/uL Last Edit by Leydi Garcia on 07/27/24 16:04 UA Specific [place] 1.015 Last Edit by Leydi Garcia on 07/27/24 16:04 UA Ketone Negative Last Edit by Leydi Garcia on 07/27/24 16:04 UA Bilirubin 0 mg/dL Last Edit by Leydi Garcia on 07/27/24 16:04 UA Glucose 0 mg/dL Last Edit by Leydi Garcia on 07/27/24 16:04 Results Reviewed Results Reviewed: Laboratory Last Values Urine pH (Auto) 6.5 07/27/24 14:54 Specific [place] (Auto) 1.015 07/27/24 14:54 Urine Protein (Auto) 0 mg/dL 07/27/24 14:54 Glucose (UA)(Auto) 0 mg/dL 07/27/24 14:54 Urine Ketones (Auto) Negative 07/27/24 14:54 Urine Blood (Auto) 0 [place]/uL 07/27/24 14:54 Urine Nitrite (Auto) Negative 07/27/24 14:54 Urine Bilirubin (Auto) 0 mg/dL 07/27/24 14:54 Urine Urobilinogen (Auto) 0.2 mg/dL 07/27/24 14:54 Leukocyte Esterase (Auto) 0 Og/uL 07/27/24 14:54 Date of Service: 07/28/23 EXAMINATION: CT ABDOMEN AND PELVIS WITHOUT CONTRAST CLINICAL INFORMATION: Right renal calculus. COMPARISON: 07/18/2023 TECHNIQUE: Multidetector volumetric imaging was performed from the superior aspect of the liver through the pubic symphysis. Sagittal and coronal reformatted images were obtained on the technologist's workstation. This CT examination was performed using dose optimization techniques as appropriate, variously including the following: *Automated exposure control *Adjustment of mA and/or kV according to patient size (this includes techniques or standardized protocols for targeted exams where dose is matched to indication/reason for exam; i.e. extremities or head) *Use of iterative reconstruction technique DLP: 993 mGy-cm FINDINGS: Motion artifact technically degrades image quality. LUNG BASES: There is bibasilar airspace disease and bronchial wall thickening. Subpleural nodule in the right lower lobe measures 2.0 x 1.2 cm. New small right pleural effusion. LIVER, GALLBLADDER, AND BILIARY TREE: The noncontrast liver is normal in size and contour. No biliary ductal dilatation is present. The gallbladder is surgically absent. PANCREAS: Unremarkable. SPLEEN: Not enlarged. ADRENAL GLANDS: No adrenal mass. KIDNEYS AND URETERS: The right kidney is unremarkable. There are several nonobstructing left renal calculi. There are at least 5 calculi ranging in size from 3 mm to 5 mm in the mid to lower pole. No left hydronephrosis or hydroureter. 4.3 cm upper pole left renal cyst. BLADDER: No bladder calculus. GASTROINTESTINAL TRACT: No small bowel obstruction. Copious stool throughout the colon. ABDOMINAL WALL: No significant hernia is appreciated. LYMPH NODES: No bulky lymphadenopathy. VASCULAR: Normal caliber abdominal aorta. PELVIC VISCERA: No large adnexal masses are appreciated. OSSEOUS STRUCTURES: No destructive bone lesions. Fatty atrophy of the right lateral chest wall musculature. IMPRESSION: Bibasilar airspace disease, right greater than left, and bronchial wall thickening. Subpleural nodule in the right lower lobe measures 2.0 x 1.2 cm. New small right pleural effusion. Several nonobstructing left renal calculi are present. No hydronephrosis or hydroureter. Constipation. Ordered:? Urine Culture? Procedure?Result?Verified?Site ? Urine Culture? Final?11/09/22 ? ? ?Organism 1?Escherichia coli ? Quant?> 100,000 cfu/mL ? ESBL Note:? NOTE: Extended-Spectrum Beta-Lactamase enzyme present ? E coli? M.I.C.? ? RX? --------- ---?Ampicillin?>=32?R?Ceftriaxone? >=64?R?Ertapenem? <=0.12? ? ?S?Gentamicin?<=1? S?Levofloxacin?1? I?Nitrofurantoin?<=16?S?Trimethoprim/Sulfamethoxazole? <=20?S Assessment & Plan Assessment & Plan (1) Kidney stone on left side: Code(s): N20.0 - Calculus of kidney Category: Medical (2) Recurrent UTI: Code(s): N39.0 - Urinary tract infection, site not specified Category: Medical (3) Cystitis: Code(s): N30.90 - Cystitis, unspecified without hematuria Category: Medical Plan Cystoscopy findings:erythematous changes, without distinct papillary lesions visualized, urine testing will be sent (cytology), Discussed low-dose suppressive antibiotic therapy. Follow-up in 10-12 weeks renal ultrasound prior. Orders: Orders AMB Urinalysis Automated 07/27/24 Z13.9 - Encounter for screening, unspecified Urine Cytology 07/27/24 R31.29 - Other microscopic hematuria AMB Cystoscopy 07/27/24 N39.0 - Urinary tract infection, site not specified, R31.29 - Other microscopic hematuria Urine Culture 07/27/24 N39.0 - Urinary tract infection, site not specified Patient Instructions: The patient had an opportunity to ask questions regarding treatment plan. The patient expressed understanding and agreement with the above treatment plan. The patient is aware they should contact our office by phone for worsening of their current condition or the appearance of new symptoms. Compliance is encouraged with any medications and followup testing that is ordered. It is a privilege to be allowed the opportunity to participate in the urologic care of your patient. If you have any questions or concerns regarding treatment for the above conditions please do not hesitate to contact me. The office telephone contact is [phone]. This note is constructed in part using voice recognition software. While every effort has been made to ensure accuracy utilization management nurse errors may have been included. Yours sincerely, Cornelia Fields MD Coding Level of Care Code Procedure Only Diagnoses Kidney stone on left side N20.0 Recurrent UTI N39.0 Cystitis N30.90 CPT Codes Cystoscopy - CPT: 30131-[id number] ([id number])
--- OUTSIDE RECORDS SUMMARY | 2024-07-27 15:31 | XMS_ITS | Clinical Summary ---
Author Organization [employer] Address [address] [facility] 7t [place] [address] Care Team Providers Care Agile Tester Name Role Phone Unavailable Primary Care Provider [...] by mouth at bedtime. 4 Active Genvoya [phone] MG tablet Take 1 tablet by mouth [...] mg by mouth at bedtime. 4 Active Immunizations Name Administration Dates Next Due Influenza [...] 1-dose series) 2021 COVID-19 Vaccine (4 - season) 2023 05/19/2021, 08/14/2020, 07/24/2020 Influenza [...] Most Recently Relevant to Health Maintenance Insurance [facility] STANDARD DENTAL-[facility] MEDICAID STAND ADULT
--- OUTSIDE RECORDS SUMMARY | 2024-07-27 15:31 | XMS_ITS | Patient Health Record ---
Author Organization Alec Strickland III, MD Address [address] [place] [address] Care Team Providers Care Consulting Sales Manager Name Role Phone Kesha PRECIADO, [facility] Primary Care Provider Alec Beckwith Unavailable [phone] Allergies Allergen (clinical drug ingredient) Drug/Non Drug [...] Problem Status W/U Status Risk Notes Problem 0165129 Former smoker (Z87.891) Active confirmed She has a plan for prevention of relapse in times of stress. I have counseled her about ongoing smoking cessation. Problem 06688431 Hyperlipidemia (E78.5) Active confirmed A fasting lipid profile is not available and has been requested from primary care. Problem 530600179 Asthma (J45.909) Active confirmed It is pollen season and she has occasional wheezing. This is controlled with her medications. Problem 95554324 Hepatitis C (B19.20) Active confirmed There is no sig n at this time of ongoing active infection. Problem 462195845 Anemia (D64.9) Active confirmed Her hematocrit is 34% with a normal mean cell volume. This is likely the anemia of chronic disease and will be observed. Problem 488700602 Thrombocytopenia (D69.6) Active confirmed Her platelet count is now normal at 174,000. The value will be observed. Problem 27717954 Human immunodeficiency virus [HIV] disease (B20) Active confirmed She has not developed any recent infections or HIV related neoplasms. She is compliant with the recommendations of infectious disease. The viral load is well controlled. Problem 815959003 Lobular carcinom a in situ of right breast (D05.01) Active confirmed There is no sign of recurrent disease. She is due for mammography and a study has been ordered. 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 It was thought to be reactive. Problem 49336203 Essential hypertension (I10) Active confirmed Her blood pressure has been normal. She was referred back to primary care for measurement. Problem 60054774 Depressive disorder, not elsewhere classified (F32.9) Active confirmed Her depre ssion is stable and well controlled and she is compliant with her medication. Problem 891296169 Obesity (BMI 35.0-39.9 without comorbidity) (E66.01) Active confirmed Her body mass index is 29 and I have recommended regular exercise and weight reduction through a diet restricted in calories fat in sodium. She has lost six pounds since her last visit. Problem 75039462 Sleep apnea (G47.30) Active confirmed She has been treated for this and denies any daytime somnolence. No additional therapy is necessary. She says she has been compliant with treatment Problem 421560224 H/O carpal tunne l syndrome (Z86.69) Active confirmed She has mi ld symptoms of neuropathy in her hands but these are mild and she is conducting all the activities of daily life without impairment. Problem 349728281 Chronic kidney disease, stage I (N18.1) Active confirmed Her most recent available renal functions are normal. These will be followed carefully. On June 08, 2021. The BUN was 18, creatinine was normal. Problem 97051967 Hepatitis B (B19.10) Active confirmed There is [...] Coverage Start Date Coverage End Date [place] [address] [place], [place] [id number] America Bower Self - patient is the [...]
--- OUTSIDE RECORDS SUMMARY | 2024-07-27 15:31 | XMS_ITS | Encounter Summary ---
Author Organization [employer] Address [address] [facility] 7t [place] [address] Care Team Providers Care Certified Orthotist Practice Manager Name Role Phone Unavailable Primary Care Provider Unavailabl e Reason for Visit * Reason Onset Date Comments rs no show appt 04/13/2024 Encounter Details Date Type Department Care Team ([facility] st Contact Info) Description 04/13/2024 Telephone [facility] [address] [place] [address] Ruel Suresh rs no show appt Social [...]
--- OUTSIDE RECORDS SUMMARY | 2024-07-27 15:31 | XMS_ITS | Encounter Summary ---
Author Organization [employer] [facility] Address [address] [facility] [address] [place] [address] Care Team Providers Care Dirt Shoveler Name Role Phone Unavailable Primary Care Provider [...]
== END 2024-07-27 14:37 | disposition home or self-care (01) ==
LOC: HO.HUSH 12:55
PROVIDERS: PCP Internal Medicine; Visit Provider Urology
DX: N39.0 Urinary tract infection, site not specified (principal); R31.29 Other microscopic hematuria; Z13.9 Encounter for screening, unspecified
CPT/HCPCS: 52000

== ENCOUNTER → 2024-08-01 09:19 | Outpatient (REF) | payer MEDICAID, SELFPAY ==
--- OUTSIDE RECORDS SUMMARY | 2024-08-01 10:14 | XMS_ITS | Encounter Summary ---
Author Organization [facility] Address [address] [facility] [address] [place] [address] Care Team Providers Care Historic Interpreter Name Role Phone Unavailable Primary Care Provider [...]
--- OUTSIDE RECORDS SUMMARY | 2024-08-01 10:14 | XMS_ITS | Encounter Summary ---
Author Organization [employer] Address [address] [facility] [address] [place] [address] Care Team Providers Care Assistant Superintendent For Curriculum Name Role Phone Unavailable Primary Care Provider Unavailabl e Reason for Visit * Reason Onset Date Comments rs no show appt 04/13/2024 Encounter Details Date Type Department Care Team ([facility] st Contact Info) Description 04/13/2024 Telephone [facility] [address] [place] [address] Ruel Suresh rs no show appt Social [...]
--- OUTSIDE RECORDS SUMMARY | 2024-08-01 10:14 | XMS_ITS | Clinical Summary ---
Author Organization [employer] Address [address] [facility] [address] [place] [address] Care Team Providers Care Larriman Name Role Phone Unavailable Primary Care Provider [...] by mouth at bedtime. 4 Active Genvoya [phone] MG tablet Take 1 tablet by mouth [...] Most Recently Relevant to Health Maintenance Insurance [facility] STANDARD DENTAL-[facility] MEDICAID STAND ADULT
== END ==
LOC: HO.SL 09:19
PROVIDERS: PCP Internal Medicine; Visit Provider Internal Medicine Pulmonary Disease
DX: Z13.89 Encounter for screening for other disorder (principal)

== ENCOUNTER 2024-08-03 08:36 | Outpatient (REF) | payer MEDICAID, SELFPAY ==
--- NOTE | ~2024-08-03 | XR_ITS ---
EXAMINATION: XR KNEE, LEFT CLINICAL INFORMATION: M25.569 - Pain in unspecified knee COMPARISON: 08/24/2022. TECHNIQUE: AP view bilateral knees standing, lateral and patellofemoral views left knee. FINDINGS: Right Knee: No fracture, dislocation, or bone lesion. Mild medial and lateral compartmental osteoarthrosis. Normal alignment. Normal soft tissues. Left Knee: No fracture, dislocation, or suspicious bone lesion. Very mild tricompartmental osteoarthritis. Mild lateral patellar tilt. Otherwise normal alignment of the knee. Minimal superior enthesopathic spurring of the patella. No evidence of joint effusion. Normal soft tissues. XR/XR knee LT 3V IMPRESSION: 1. No acute bony abnormalities. 2. Mild tricompartmental osteoarthritis left knee. Electronically signed by: Kareem Lee MD 08/04/2024 08:16 AM EDT
--- OUTSIDE RECORDS SUMMARY | 2024-08-03 09:06 | XMS_ITS | Patient Health Record ---
Author Organization Alec Strickland III, MD Address [address] [place] [address] Care Team Providers Care Human Resources Hr Generalist Name Role Phone Kesha PRECIADO, [facility] Primary Care Provider Alec Beckwith Unavailable [phone] Allergies Allergen (clinical drug ingredient) Drug/Non Drug [...] Problem Status W/U Status Risk Notes Problem 1153740 Former smoker (Z87.891) Active confirmed She has a plan for prevention of relapse in times of stress. I have counseled her about ongoing smoking cessation. Problem 40373142 Hyperlipidemia (E78.5) Active confirmed A fasting lipid profile is not available and has been requested from primary care. Problem 771697281 Asthma (J45.909) Active confirmed It is pollen season and she has occasional wheezing. This is controlled with her medications. Problem 15485246 Hepatitis C (B19.20) Active confirmed There is no sig n at this time of ongoing active infection. Problem 781395306 Anemia (D64.9) Active confirmed Her hematocrit is 34% with a normal mean cell volume. This is likely the anemia of chronic disease and will be observed. Problem 724011025 Thrombocytopenia (D69.6) Active confirmed Her platelet count is now normal at 174,000. The value will be observed. Problem 04332244 Human immunodeficiency virus [HIV] disease (B20) Active confirmed She has not developed any recent infections or HIV related neoplasms. She is compliant with the recommendations of infectious disease. The viral load is well controlled. Problem 857356941 Lobular carcinom a in situ of right breast (D05.01) Active confirmed There is no sign of recurrent disease. She is due for mammography and a study has been ordered. 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 It was thought to be reactive. Problem 68830062 Essential hypertension (I10) Active confirmed Her blood pressure has been normal. She was referred back to primary care for measurement. Problem 74077922 Depressive disorder, not elsewhere classified (F32.9) Active confirmed Her depre ssion is stable and well controlled and she is compliant with her medication. Problem 140251889 Obesity (BMI 35.0-39.9 without comorbidity) (E66.01) Active confirmed Her body mass index is 29 and I have recommended regular exercise and weight reduction through a diet restricted in calories fat in sodium. She has lost six pounds since her last visit. Problem 88594072 Sleep apnea (G47.30) Active confirmed She has been treated for this and denies any daytime somnolence. No additional therapy is necessary. She says she has been compliant with treatment Problem 830443744 H/O carpal tunne l syndrome (Z86.69) Active confirmed She has mi ld symptoms of neuropathy in her hands but these are mild and she is conducting all the activities of daily life without impairment. Problem 788132162 Chronic kidney disease, stage I (N18.1) Active confirmed Her most recent available renal functions are normal. These will be followed carefully. On June 08, 2021. The BUN was 18, creatinine was normal. Problem 80080979 Hepatitis B (B19.10) Active confirmed There is [...] Date [place] [address] [place], [place] [id number] America Bower Self - patient is the [...]
== END 2024-08-03 08:37 | disposition home or self-care (01) ==
LOC: HO.HOSX 08:36
PROVIDERS: Visit Provider Physician Assistant
DX: M25.562 Pain in left knee (principal); M17.11 Unilateral primary osteoarthritis, right knee
CPT/HCPCS: 73562; 99212

== ENCOUNTER 2024-08-03 13:05 | Outpatient (AMB) | payer MEDICAID, SELFPAY ==
--- NOTE | 2024-08-03 13:23 | A.OFFVIS_ITS ---
Vital Signs 08/03/24 13:25 Height 5 ft 3 in Weight 195 lb BMI 34.5 Intake Visit Reasons: OV - LT knee OA Intake Note: America is a 64 year old female who presents today for a follow up of her left knee OA. Patient had an injection with Rheumatology about 3 years ago. She states that her knee is feeling better today. She does notice that her pain is worse at night. She mentions that she got her knee aspirated and injection at the ED back in June. Patient has pain through out her knee and it goes behind the knee. Allergies shellfish derived Allergy (Intermediate, Verified 08/03/24 13:25) HIVES, N/V HPI HPI OV - LT knee OA: Details: Patient is a 64-year-old female who presents to the office today for evaluation of left knee pain. She reports that the knee pain has been in place for the past few years. She reports that she does have some swelling as well as tingling in the right lower extremity. She denies any acute injury or trauma. She was seen by her primary care provider in June of this year and received a cortisone injection into the right knee. 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 HIV (human immunodeficiency virus infection) History of blood transfusion Anemia Hx of renal calculi Difficulty swallowing GERD (gastroesophageal reflux disease) Hepatitis Depression Sleep apnea Asthma Elevated cholesterol HTN (hypertension) Surgical History Hx of colonoscopy Hx of cystoscopy Hx of dilation and curettage Hx of section Hx of reduction mammoplasty Hx of tubal ligation Hx of cholecystectomy Family History Mother Breast cancer Father Heart problem Sister Bone cancer Family/Other Diabetes Social History Household Members: Family Housing: Apartment Housing Other:: lives alone, son staying with her Are you a primary home care chaplain to a significant other at home: No Do you presently have visiting nurse or other home services: No Unable to assess alcohol history related to: Unknown Alcohol intake: current Alcohol intake frequency: holidays/special occasions only Alcohol type: wine Comment: low falls risk Patient Tobacco Use Status: Former Tobacco user Tobacco use type: Cigarette Cigarette Packs Per Day: 2 Cigarettes Per Day: 40.0 Years Smoked: 40 e-Cigarette/Vaping Use: Never Used Second Hand Smoke Exposure: No Substance Use Type: Former Substance User service: No Sexual orientation: Straight/Heterosexual Gender identity: Female Female Reproductive History Menstrual Age of Menarche: 12 Review of Systems Const All systems reviewed & are unremarkable except as noted in HPI and below Physical Exam Vital Signs: BMI result Body Mass Index 34.5 Const General: cooperative, healthy appearing and no acute distress Resp Effort & Inspection: normal respiratory effort and able to speak in complete sentences Cardio Rate: regular rate Peripheral pulses: Peripheral pulses 2+ throughout Skin Lesions: no lesions Rashes: no rashes Extrem Other: Right knee normal to inspection no ecchymosis, erythema or joint effusion. Range of motion 0-120. No tenderness to palpation medial and lateral joint line. NVI. Assessment & Plan Assessment & Plan (1) Osteoarthritis of right knee: Code(s): M17.11 - Unilateral primary osteoarthritis, right knee Category: Medical Plan Patient is a 64-year-old female who presents to the office today for evaluation of left knee pain. She reports that the knee pain has been in place for the past few years. She reports that she does have some swelling as well as tingling in the right lower extremity. She denies any acute injury or trauma. She was seen by her primary care provider in June of this year and received a cortisone injection into the right knee. While the office today, we just discussed the role of cortisone injection and physical therapy. However, the patient just had a cortisone injection with her primary care provider last month. Therefore, it is too soon for repeat cortisone injection. Patient can not take NSAIDs because she reports that she takes a blood thinner. It is unclear which blood thinner she is taking. I did notice in her past medical history she is on meloxicam and naproxen. I have offered the patient a topical pain cream which she has elected to try. She will follow up with Orthopedics p.r.n., sooner if needed. X-rays of the left knee which were obtained while in the office today and were reviewed by me, Janice Hooker PA-C, revealed mild arthritic changes. Orders: Orders XR knee LT 3V Today M25.569 - Pain in unspecified knee Coding Level of Care Code Est Pt Level 3 (25935) Diagnoses Osteoarthritis of right knee M17.11
[2024-08-03 13:25] VITALS: BMI 34.5
--- OUTSIDE RECORDS SUMMARY | 2024-08-03 16:00 | XMS_ITS | Encounter Summary ---
Author Organization [email or web address] Address [address] [facility] [address] [place] [address] Care Team Providers Care Business Account Manager Name Role Phone Unavailable Primary Care Provider Unavailabl e Reason for Visit * Reason Onset Date Comments rs no show appt 04/13/2024 Encounter Details Date Type Department Care Team ([facility] st Contact Info) Description 04/13/2024 Telephone [facility]ULT [facility] [address] [place] [address] Ruel Suresh rs no show appt Social [...]
--- OUTSIDE RECORDS SUMMARY | 2024-08-03 16:00 | XMS_ITS | Clinical Summary ---
Author Organization [employer] Address [address] [facility] [address] [place] [address] Care Team Providers Care Horseback Excavator Name Role Phone Unavailable Primary Care Provider [...] by mouth at bedtime. 4 Active Genvoya [phone] MG tablet Take 1 tablet by mouth [...] Most Recently Relevant to Health Maintenance Insurance [facility] STANDARD DENTAL-[facility] MEDICAID STAND ADULT
--- OUTSIDE RECORDS SUMMARY | 2024-08-03 16:00 | XMS_ITS | Encounter Summary ---
Author Organization [facility] Address [address] [facility] [address] [place] [address] Care Team Providers Care Bench Jeweler Name Role Phone Unavailable Primary Care Provider [...]
== END 2024-08-03 13:37 | disposition home or self-care (01) ==
LOC: HO.HOS 13:05
PROVIDERS: PCP Internal Medicine; Visit Provider Physician Assistant
DX: M17.11 Unilateral primary osteoarthritis, right knee (principal)
CPT/HCPCS: 99213

== ENCOUNTER → 2024-08-03 13:07 | Outpatient (BNV) | payer MEDICAID, SELFPAY | PROVIDERS: Visit Provider Radiology Diagnostic Radiology | DX: M17.12 Unilateral primary osteoarthritis, left knee (principal) | CPT/HCPCS: 73562 ==

== ENCOUNTER 2024-08-23 08:47 | Outpatient (REF) | payer MEDICAID, SELFPAY ==
[2024-08-23 09:02] LABS: MANUAL DIFF FLAG NO
--- OUTSIDE RECORDS SUMMARY | 2024-08-23 09:13 | XMS_ITS | Encounter Summary ---
Author Organization [employer] Address [address] [facility] [address] [place] [address] Care Team Providers Care Car Installations Supervisor Name Role Phone Unavailable Primary Care Provider Unavailabl e Reason for Visit * Reason Onset Date Comments rs no show appt 04/13/2024 Encounter Details Date Type Department Care Team (Late st Contact Info) Description 04/13/2024 Telephone [facility] ADULT DENTAL [address] [place], [place] [id number] Ruel Suresh rs no show appt Social [...] documented in this encounter Plan of Treatment Upcoming Encounters Date Type Department Care Team (Late st Contact Info) Description 08/24/2024 11:00 AM EDT Nurse Only [facility] [address] [place], [place] [phone] documented as of this encounter Visit Diagnoses Not on filedocumented in this encounter
--- OUTSIDE RECORDS SUMMARY | 2024-08-23 09:13 | XMS_ITS | Encounter Summary ---
Author Organization [employer] Address [address] [facility] [address] [place] [address] Care Team Providers Care Teacher Specialist Name Role Phone Unavailable Primary Care Provider Unavailabl e Encounter Details Date Type Department Care Team (Latest Contact Info) Description 09/27/2020 Abstract [facility] Dental, Provider, DDS Social History Tobacco Use Types Packs/Day Years Used Date Smoking Tobacco: Never Assessed Comments Unknown Sex and Gender Information Value Date Recorded Sex Assigned at Female 02/16/2022 10:16 AM EDT Legal Sex Female 10:16 AM EDT Gender Identity Female 02/16/2022 10:16 AM EDT Sexual Orientation Straight 02/16/2022 10 :16 AM EDT documented as of this encounter Plan of Treatment Upcoming Encounters Date Type Department Care Team (Late st Contact Info) Description 08/24/2024 11:00 AM EDT Nurse Only [facility] [address] [place] [address] documented as of this encounter Visit Diagnoses Not on filedocumented in this encounter
--- OUTSIDE RECORDS SUMMARY | 2024-08-23 09:13 | XMS_ITS | Patient Health Record ---
Author Organization Alec Strickland III, MD Address [address] [place] [address] Care Team Providers Care Permastone Installer Name Role Phone Kesha PRECIADO, [facility] Primary Care Provider Alec Beckwith Unavailable [phone] Allergies Allergen (clinical drug ingredient) Drug/Non Drug [...] Problem Status W/U Status Risk Notes Problem 4748189 Former smoker (Z87.891) Active confirmed She has a plan for prevention of relapse in times of stress. I have counseled her about ongoing smoking cessation. Problem 73723003 Hyperlipidemia (E78.5) Active confirmed A fasting lipid profile is not available and has been requested from primary care. Problem 311236841 Asthma (J45.909) Active confirmed It is pollen season and she has occasional wheezing. This is controlled with her medications. Problem 02142043 Hepatitis C (B19.20) Active confirmed There is no sig n at this time of ongoing active infection. Problem 948654867 Anemia (D64.9) Active confirmed Her hematocrit is 34% with a normal mean cell volume. This is likely the anemia of chronic disease and will be observed. Problem 962376233 Thrombocytopenia (D69.6) Active confirmed Her platelet count is now normal at 174,000. The value will be observed. Problem 25632128 Human immunodeficiency virus [HIV] disease (B20) Active confirmed She has not developed any recent infections or HIV related neoplasms. She is compliant with the recommendations of infectious disease. The viral load is well controlled. Problem 379662049 Lobular carcinom a in situ of right breast (D05.01) Active confirmed There is no sign of recurrent disease. She is due for mammography and a study has been ordered. 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 It was thought to be reactive. Problem 85586731 Essential hypertension (I10) Active confirmed Her blood pressure has been normal. She was referred back to primary care for measurement. Problem 57109429 Depressive disorder, not elsewhere classified (F32.9) Active confirmed Her depre ssion is stable and well controlled and she is compliant with her medication. Problem 413118406 Obesity (BMI 35.0-39.9 without comorbidity) (E66.01) Active confirmed Her body mass index is 29 and I have recommended regular exercise and weight reduction through a diet restricted in calories fat in sodium. She has lost six pounds since her last visit. Problem 55971314 Sleep apnea (G47.30) Active confirmed She has been treated for this and denies any daytime somnolence. No additional therapy is necessary. She says she has been compliant with treatment Problem 583358489 H/O carpal tunne l syndrome (Z86.69) Active confirmed She has mi ld symptoms of neuropathy in her hands but these are mild and she is conducting all the activities of daily life without impairment. Problem 778151427 Chronic kidney disease, stage I (N18.1) Active confirmed Her most recent available renal functions are normal. These will be followed carefully. On June 08, 2021. The BUN was 18, creatinine was normal. Problem 45237933 Hepatitis B (B19.10) Active confirmed There is [...] Date [place] [address] [place], [place] [id number] America Bower Self - patient is the [...]
--- OUTSIDE RECORDS SUMMARY | 2024-08-23 09:13 | XMS_ITS | Clinical Summary ---
Author Organization [employer] Address [address] [facility] [address] [place] [address] Care Team Providers Care Continuous Pickling Line Pickler Name Role Phone Unavailable Primary Care Provider [...] by mouth at bedtime. 4 Active Genvoya [phone] MG tablet Take 1 tablet by mouth [...] Mass Index - - Plan of Treatment Upcoming Encounters Date Type Department Care Team (Late st Contact Info) Description 08/24/2024 11:00 AM EDT Nurse Only [facility] [address] [place] [address] Health Maintenance Due Date Last Done Comments [...] - 2023- season) 2023 05/19/2021, 08/14/2020, 07/24/2020 Dental Oral Exam 04/12/2024 10/11/2023, 02/2021, 07/19/2018, Additional history exists Dental Prophylaxis 04/12/2024 10/11/2023, 0 09/27/2020, 03/01/2019, Additional history exists Tobacco Screening 10/10/2024 10/11/2023 Dental X-Ray: Bitewings 10/11/2024 10/11/19, 11/04/2021, 09/27/2020, Additional history exists Dental X-Ray: Full Mouth 10/11/2026 10/11/2023, 06/17 DTaP/Tdap/Td Vaccines (2 - Td or Tdap) 12/10/2027 12/09/2017 Zoster Vaccines Completed 03/04/2023, 12/31/2022 Influenza Vaccine Completed 02/08/2024, , 02/09/2022, Additional history exists HIB Vaccines Aged Out No longer eligi [...] Most Recently Relevant to Health Maintenance Insurance [facility] STANDARD Cuffed and Wanted [address] [place] [phone] DENTAL-[facility] MEDICAID STAND ADULT [place] [address] [place] [phone]
[2024-08-23 09:30] LABS: Basophils Percent Auto 0.3 % (0-2); Eosinophils Absolute Auto 0.2 X10*3/uL (0.0-0.4); Eosinophils Percent Auto 3.6 % (0-4); Hematocrit 36.6 % (37.0-47.0); Hemoglobin 11.5 g/dl (12.0-16.0); Imm Gran Abs Auto 0.02 X10*3/uL (0.00-0.03); Imm Gran Pct Auto 0.3 % (0.0-0.4); Lymphocytes Absolute Auto 1.5 X10*3/uL (1.2-4.9); Mean Corpuscular HGB Conc 31.4 g/dl (31.0-35.0); Mean Corpuscular Hemoglobin 28.3 pg (27.0-33.0); Mean Corpuscular Volume 89.9 fL (80.0-98.0); Mean Platelet Volume 11.3 fL (9.4-12.3); Monocytes Absolute Auto 0.4 X10*3/uL (0.1-1.2); Monocytes Percent Auto 6.9 % (2-11); Neutrophils Percent Auto 64.9 % (45-73); Platelet Count 185 X10*3/uL (160-400); Red Blood Count 4.07 X10*6/uL (4.20-5.50); Red Cell Distribution Width 14.4 % (11.0-16.0); White Blood Count 6.1 X10*3/uL (4.8-10.8)
[2024-08-23 09:48] LABS: Alanine Aminotransferase 15 U/L (0-31); Albumin Level 3.9 g/dL (3.5-5.0); Alkaline Phosphatase 67 U/L (39-117); Anion Gap 11 (12-20); Aspartate Amino Transferase 24 U/L (5-31); Bilirubin Total 0.3 mg/dL (0.0-1.0); Blood Urea Nitrogen 22 mg/dL (9-16); Calcium 8.7 mg/dL (8.4-10.2); Carbon Dioxide 26 mmol/L (22-29); Chloride 109 mmol/L (96-108); Cholesterol 196 mg/dL (<200); Estimated Glomerular Filt Rate > 60; Glucose Random 87 mg/dL (60-115); HDL Cholesterol 56 mg/dL (>40); LDL Cholesterol Calculated 113 mg/dL (<100); Potassium 4.1 mmol/L (3.3-5.1); Sodium 142 mmol/L (135-145); Total Protein 7.4 g/dL (6.5-8.0); Triglycerides 138 mg/dL (<150)
== END 2024-08-23 08:48 | disposition home or self-care (01) ==
LOC: HO.LAB 08:47
PROVIDERS: PCP Internal Medicine; Visit Provider Internal Medicine
DX: E78.00 Pure hypercholesterolemia, unspecified (principal); I10 Essential (primary) hypertension; J84.9 Interstitial pulmonary disease, unspecified; M25.461 Effusion, right knee; M51.16 Intervertebral disc disorders with radiculopathy, lumbar region
CPT/HCPCS: 36415; 80053; 80061; 85025

== ENCOUNTER 2024-09-12 13:22 | Emergency (ER) | payer MEDICAID, SELFPAY ==
--- NOTE | ~2024-09-12 | US_ITS ---
EXAMINATION: US TRIPLEX LOWER EXTREMITY, RIGHT CLINICAL INFORMATION: Right lower extremity swelling. COMPARISON: None available. TECHNIQUE: Color-flow triplex imaging with spectral analysis and compression Doppler were performed on the right lower extremity. FINDINGS: Respiratory variation, normal compression and augmented flow are noted throughout the right lower extremity. The visualized common femoral vein, superficial femoral vein, profunda femoral vein, popliteal vein and midcalf peroneal and posterior tibial venous segments show no evidence of deep venous thrombosis. There is no Santos's cyst. US/US venous duplex LE RT IMPRESSION: No evidence of deep venous thrombosis involving the right lower extremity. Electronically signed by: Kareem Lee MD 09/12/2024 04:28 PM EDT RP
--- NOTE | ~2024-09-12 | XR_ITS ---
EXAMINATION: XR CHEST CLINICAL INFORMATION: cp COMPARISON: May 23, 2024. TECHNIQUE: 2 views of the chest were obtained. FINDINGS: Bilateral apical lung scarring. Subsegmental atelectasis versus scarring left lower hemithorax. No consolidation, pleural effusion or pneumothorax. Cardiomediastinal silhouette size is normal. Calcified plaque thoracic aortic arch. Mild S-shaped curvature of the thoracic spine. Small marginal osteophyte formation and endplate sclerosis and the mid thoracic spine. Vascular clips in the right upper quadrant abdomen. XR/XR chest 2V IMPRESSION: No acute airspace disease. Mild scoliosis and spondylosis, thoracic spine. Electronically signed by: Sukh Becker MD 09/12/2024 02:04 PM EDT
--- NOTE | 2024-09-12 13:23 | ECG_ITS ---
Test Reason : chest pain Blood Pressure : */* mmHG Vent. Rate : 75 BPM Atrial Rate : 75 BPM P-R Int : 158 ms QRS Dur : 94 ms QT Int : 414 ms P-R-T Axes : 52 -49 53 degrees QTcB Int : 462 ms Normal sinus rhythm Left axis deviation Nonspecific ST and T wave abnormality Abnormal ECG When compared with ECG of 23-May-2024 14:26, Nonspecific T wave abnormality, worse in Anterolateral leads Referred By: Generic ED Physician Electronically Signed By: AZEEM FLANAGAN MD
[2024-09-12 13:29] VITALS: BP 150/59; PULSE 78; RESP 20; TEMP 36.8; O2SAT 97; BMI 35.0
--- NOTE | 2024-09-12 13:29 | ED.CHESTPAIN ---
HPI - Chest Pain General Chief Complaint: General Medical Stated Complaint: Chest pain, back pain Time Seen by Provider: 09/12/24 19:59 Source: patient Limitations: no limitations and language barrier History of Present Illness ED Provider: Jocelynn Mendieta PA-C HPI narrative: 64 y/o F with hx of kidney stones, recurrent UTIs, interstitial lung disease, emphysema, arthritis, fibromyalgia, hepatitis, HIV on HAART with no current viral detectable load, presents with multiple complaints. Patient states she was in [place] at a follow up appointment with a her infectious disease provider, they send her for assessment secondary to ?the way her lungs sounded?. Patient states she has had cough and cold symptoms with a wheezing for the past 3-5 days. Denies fever. In addition, the patient has a ongoing swelling of the right lower extremity for months. Related Data Home Medications ?Medication ?Instructions ?Recorded ?Confirmed elviteg 150 mg-cob 150 mg-emtricit 1 tab PO DAILY 07/17/23 06/09/24 200 mg-tenofo alafenam 10 mg tablet (Genvoya) ketotifen fumarate 0.025 % (0.035 2 drp ophthalmic (eye) DAILY 11/19/23 06/09/24 %) eye drops rosuvastatin 40 mg tablet 40 mg PO BEDTIME 11/19/23 06/09/24 losartan 100 mg tablet 100 mg PO DAILY 04/05/24 06/09/24 triamcinolone acetonide 0.5 % 1 appl topical BID PRN Rash 04/05/24 06/09/24 topical cream linaclotide 145 mcg capsule 145 mcg PO DAILY 04/20/24 06/09/24 (Linzess) ondansetron 4 mg disintegrating 4 mg PO Q6H PRN nausea and vomiting 04/20/24 06/09/24 tablet albuterol sulfate 2.5 mg/0.5 mL 2.5 mg inhalation TID PRN 05/24/24 06/09/24 solution for nebulization Shortness Of Breath Or Wheezing albuterol sulfate 90 mcg/actuation 2 puff inhalation QID PRN asthma 05/24/24 06/09/24 aerosol inhaler (Ventolin HFA) diphenhydramine HCl 25 mg capsule 25 mg PO BEDTIME 05/24/24 06/09/24 fluticasone furoate 200 1 ea inhalation DAILY 05/24/24 06/09/24 mcg-vilanterol 25 mcg/dose inhalation powder (Breo Ellipta) Previous Rx's ?Medication ?Instructions ?Recorded furosemide 20 mg tablet 20 mg PO DAILY 30 days #30 tabs 07/19/23 meclizine 12.5 mg tablet 12.5 mg PO TID PRN Vertigo #12 tabs 07/19/23 meloxicam 15 mg tablet 15 mg PO DAILY #30 tabs 07/19/23 sertraline 100 mg tablet 100 mg PO DAILY PRN mood #30 tabs 07/19/23 zolpidem 10 mg tablet 10 mg PO BEDTIME #30 tabs 07/19/23 loratadine 10 mg tablet 10 mg PO DAILY #30 tabs 07/20/23 naproxen 500 mg tablet 500 mg PO BID PRN pain 7 days #14 07/28/23 tabs simethicone 180 mg capsule 180 mg PO QID 30 days #120 caps 11/19/23 hydrocortisone 1 % topical cream 1 appl topical BID PRN itching 12/06/23 (Cortisone (hydrocortisone)) #28.35 grams pyridoxine (vitamin B6) 100 mg 100 mg PO DAILY kidney stones 90 12/28/23 tablet days #90 tabs umeclidinium 62.5 mcg/actuation 1 inh inhalation DAILY #1 ea 02/15/24 blister powder for inhalation (Incruse Ellipta) walker (Ultra-Light Rollator misc) #1 ea 04/21/24 omeprazole 20 mg capsule,delayed 20 mg PO DAILY@0630 #90 caps 05/31/24 release levofloxacin 500 mg tablet 500 mg PO DAILY 7 days #7 tabs 06/22/24 metronidazole 375 mg capsule 375 mg PO BID 7 days #14 caps 06/22/24 (Flagyl) Allergies Allergy/AdvReac Type Severity Reaction Status Date / Time shellfish derived Allergy Intermediate HIVES, N/V Verified 09/12/24 13:31 Review of Systems Review of Systems: Yes all other systems are reviewed and are negative Constitutional: Constitutional: Reports fatigue, Denies fever(s) and Reports malaise Cardiovascular: Cardiovascular: Reports chest pain, Reports leg edema and Denies dyspnea Respiratory: Respiratory: Reports cough, Denies dyspnea and Reports wheezing Gastrointestinal: Gastrointestinal: Denies abdominal pain, Denies nausea and Denies vomiting Endocrine: Endocrine: Reports fatigue Allergic/Immunologic: Allergic/Immunologic: Reports wheezing PMFSH Past Medical History Attestation statement: The following information was validated with the patient. 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 HIV (human immunodeficiency virus infection) History of blood transfusion Anemia Hx of renal calculi Difficulty swallowing GERD (gastroesophageal reflux disease) Hepatitis Depression Sleep apnea Asthma Elevated cholesterol HTN (hypertension) Surgical History Hx of colonoscopy Hx of cystoscopy Hx of dilation and curettage Hx of section Hx of reduction mammoplasty Hx of tubal ligation Hx of cholecystectomy Family History Family History Mother Breast cancer Father Heart problem Sister Bone cancer Family/Other Diabetes Social History Social History Household Members: Family Housing: Apartment Housing Other:: lives alone, son staying with her Are you a primary professional healthcare representative to a significant other at home: No Do you presently have visiting nurse or other home services: No Unable to assess alcohol history related to: Unknown Alcohol intake: current Alcohol intake frequency: holidays/special occasions only Alcohol type: wine Comment: low falls risk Patient Tobacco Use Status: Former Tobacco user Tobacco use type: Cigarette Cigarette Packs Per Day: 2 Cigarettes Per Day: 40.0 Years Smoked: 40 Smoked in Last 30 Days: No e-Cigarette/Vaping Use: Never Used Second Hand Smoke Exposure: No Use of substances other than those prescribed or required for medical reasons: No Substance Use Type: Former Substance User Advance Directives: No Advance Directives Information Provided: No service: No Sexual orientation: Straight/Heterosexual Gender identity: Female Physical Exam Vital Signs: Vital Signs: Last Vital Signs Temp 97.5 F 09/12/24 20:26 Pulse 72 09/12/24 20:26 Resp 16 09/12/24 20:26 BP 130/75 09/12/24 20:26 Pulse Ox 95 09/12/24 20:26 O2 Del Method Room Air 09/12/24 20:26 BMI result Body Mass Index 35.0 Const: Other: Alert Orientation/consciousness: patient oriented x3 Resp: Other: Nonlabored respirations, Lungs overall clear to auscultation, faint occasional expiratory wheeze noted Effort & Inspection: normal respiratory effort Cardio: Other: Normal peripheral perfusion Skin: Other: Warm dry no rash Neuro: General: patient oriented x3, gait normal, no focal motor deficits and CN's II-XI intact bilaterally Extrem: Other: Right lower extremity is visibly larger than the left, Psych: Other: Cooperative Course Course Course Narrative: This is a Rapid Medical Exam performed in triage by Fernanda Watts PA-C. Full HPI, ROS and PE to be performed by primary ED provider. 64-year-old Vietnamese-speaking female with past medical history emphysema, HIV, GERD, Anemia, Hepatitis, asthma, HLD presenting to the ED c/o CP, low back/side pain & RLE swelling x 5 days. Was at HIV doctor today in [place] and they wanted to admit her for lung & leg concerns however she didnt have any family there so presented to our ED. Admits she is undetectable. PE: +RLE swelling, talking in complete sentences, ambulating with steady gait Plan: EKG, labs, CXR Medical Decision Making Medical Decision Making [facility] Narrative: 64 y/o F with hx of kidney stones, recurrent UTIs, interstitial lung disease, emphysema, arthritis, fibromyalgia, hepatitis, HIV on HAART with no current viral detectable load, presents with multiple complaints. Patient states she was in [place] at a follow up appointment with a her infectious disease provider, they send her for assessment secondary to ?the way her lungs sounded?. Patient states she has had cough and cold symptoms with a wheezing for the past 3-5 days. Denies fever. In addition, the patient has a ongoing swelling of the right lower extremity for months. Problem: HIV, interstitial lung disease, fibromyalgia, age History: Per patient I have considered the following differential diagnoses: Asthma exacerbation, viral syndrome, bronchitis, pneumonia, DVT, ACS , new heart failure Plan: In regard to the patient's cough cold symptoms, chest x-ray is clear, viral panel negative, this is not full-blown asthma exacerbation, perhaps a seasonal allergies are bothersome to her. We will send with home care instructions. In regard to the lower extremity swelling, this is chronic, she has had it for months, DVT study ordered from triage, it is negative. ACS was considered, troponin EKG obtained, thought about new heart failure as cause for discomfort and lower extremity swelling, however the lower extremity swelling is unilateral, she is not volume overloaded on exam. I have independently reviewed the following tests: Labs: No leukocytosis, not anemic, no electrolyte abnormality, troponin negative, urine not infected EKG: Normal sinus rhythm, rate of 75, no active ischemic changes no ectopy, QTC 414 Chest x-ray: XR/XR chest 2V IMPRESSION: No acute airspace disease. Mild scoliosis and spondylosis, thoracic spine. Doppler right lower extremity: US/US venous duplex LE RT IMPRESSION: No evidence of deep venous thrombosis involving the right lower extremity. Electronically signed by: Kareem Lee MD 09/12/2024 04:28 PM EDT RP Lab Data 09/12/24 13:49 09/12/24 13:49 Labs: Lab Results 09/12/24 09/12/24 Range/Units 13:49 20:25 WBC 4.8 (4.8-10.8) X10*3/uL RBC 4.22 (4.20-5.50) X10*6/uL Hgb 12.2 (12.0-16.0) g/dl Hct 36.8 L (37.0-47.0) % MCV 87.2 (80.0-98.0) fL MCH 28.9 (27.0-33.0) pg MCHC 33.2 (31.0-35.0) g/dl RDW 13.7 (11.0-16.0) % Plt Count 191 (160-400) X10*3/uL MPV 10.8 (9.4-12.3) fL Immature Gran % (Auto) 0.2 (0.0-0.4) % Neut % (Auto) 61.4 (45-73) % Lymph % (Auto) 27.9 (20-40) % [place] % (Auto) 9.0 (2-11) % Eos % (Auto) 1.3 (0-4) % Baso % (Auto) 0.2 (0-2) % Lymph # (Auto) 1.3 (1.2-4.9) X10*3/uL [place] # (Auto) 0.4 (0.1-1.2) X10*3/uL Eos # (Auto) 0.1 (0.0-0.4) X10*3/uL Baso # (Auto) 0.0 (0.0-0.2) X10*3/uL Abs Immat Gran (auto) 0.01 (0.00-0.03) X10*3/uL Absolute Neuts (auto) 2.9 (2.0-8.3) x10*3/uL Absolute Nucleated RBC 0.000 (0.0-0.012) X10*3/uL Nucleated RBC % (auto) 0.0 (0.0-0.2) /100WBC PT 11.9 (10.9-12.4) SEC INR 1.0 (0.9-1.1) Sodium 141 (135-145) mmol/L Potassium 3.7 (3.3-5.1) mmol/L Chloride 105 (96-108) mmol/L Carbon Dioxide 30 H (22-29) mmol/L Anion Gap 10 L (12-20) BUN 15 (9-16) mg/dL Creatinine 0.89 (0.5-1.4) mg/dL Estim Creat Clear Calc 68.7 Estimated GFR > 60 Random Glucose 72 (60-115) mg/dL Calcium 9.4 D (8.4-10.2) mg/dL Magnesium 2.0 (1.6-2.6) mg/dL Total Bilirubin 0.6 (0.0-1.0) mg/dL Direct Bilirubin 0.2 (0.0-0.5) mg/dL AST 25 (5-31) U/L ALT 20 (0-31) U/L Alkaline Phosphatase 70 (39-117) U/L Troponin I High Sens < 2.7 (<3.5-17.0) ng/L B-Natriuretic Peptide 32 (<100) pg/mL Total Protein 8.1 H (6.5-8.0) g/dL Albumin 4.5 (3.5-5.0) g/dL Urine Color Yellow Urine Appearance Clear Urine pH 6.5 (5.0-9.0) Ur Specific [place] 1.015 (1.005-1.025) Urine Protein Negative (Neg-Trace) mg/dL Urine Glucose (UA) Negative (Negative) mg/dL Urine Ketones Negative (Negative) mg/dL Urine Blood Small (1+) H (Negative) Urine Nitrite Negative (Negative) Ur Leukocyte Esterase Moderate (2+) H (Negative) Urine RBC 0-2 (0-2) /HPF Urine WBC 11-20 H (0-5) /HPF Ur Squamous Epith Cells 6-10 (0-2) /HPF Urine Bacteria 3+ (None Seen) Hyaline Casts 0-2 (0-2) /LPF Influenza Type A (PCR) NEGATIVE (Negative) Influenza Type B (PCR) NEGATIVE (Negative) RSV RNA Qual (PCR) NEGATIVE (Negative) SARS-CoV-2 RNA (RT-PCR) NEGATIVE (Negative) Discharge Plan Discharge Clinical Impression: Cough, Right leg swelling Patient Disposition: Home, Self-Care Additional Instructions: Screening labs including a cardiac enzyme and viral panel were obtained everything is negative. There were no concerning changes on the EKG in the chest x-ray is clear. The ultrasound of the right lower extremity was negative for clot. You need to continue to follow up with your healthcare providers in regard to the chronic right lower extremity swelling. For the cough you are experiencing you can use your home inhalers. If you were sensitive to seasonal allergies, begin taking [id number] Zyrtec, this is an antihistamine. Follow up with your primary care provider this week. Prescriptions: No Action omeprazole 20 mg capsule,delayed release(DR/EC) 20 mg PO DAILY@0630 Qty: 90 2RF metronidazole [Flagyl] 375 mg capsule 375 mg PO BID 7 Days Qty: 14 0RF levofloxacin 500 mg tablet 500 mg PO DAILY 7 Days Qty: 7 0RF hydrocortisone [Cortisone (hydrocortisone)] 1 % cream 1 appl topical BID PRN (Reason: itching) Qty: 28.35 0RF albuterol sulfate [Ventolin HFA] 90 mcg/actuation HFA aerosol inhaler 2 puff INHALATION QID PRN (Reason: asthma) albuterol sulfate 2.5 mg/0.5 mL solution for nebulization 2.5 mg inhalation TID PRN (Reason: Shortness Of Breath Or Wheezing) fluticasone furoate-vilanterol [Breo Ellipta] 200-25 mcg/dose blister with device 1 ea INHALATION DAILY diphenhydramine HCl 25 mg capsule 25 mg PO BEDTIME Genvoya [phone] mg tablet 1 tab PO DAILY Rx Instructions: with breakfast meloxicam 15 mg tablet 15 mg PO DAILY Qty: 30 0RF sertraline 100 mg tablet 100 mg PO DAILY PRN (Reason: mood) Qty: 30 0RF meclizine 12.5 mg tablet 12.5 mg PO TID PRN (Reason: Vertigo) Qty: 12 0RF furosemide 20 mg tablet 20 mg PO DAILY 30 Days Qty: 30 6RF zolpidem 10 mg tablet 10 mg PO BEDTIME Qty: 30 0RF loratadine 10 mg Tablet 10 mg PO DAILY Qty: 30 0RF naproxen 500 mg tablet 500 mg PO BID PRN (Reason: pain) 7 Days Qty: 14 0RF losartan 100 mg tablet 100 mg PO DAILY triamcinolone acetonide 0.5 % cream 1 appl topical BID PRN (Reason: Rash) ondansetron 4 mg tablet,disintegrating 4 mg PO Q6H PRN (Reason: nausea and vomiting) Linzess 145 mcg capsule 145 mcg PO DAILY (DME) Ultra-Light Rollator Misc See Rx Instructions .Route Qty: 1 0RF Rx Instructions: As directed pyridoxine (vitamin B6) 100 mg tablet 100 mg PO DAILY 90 Days Qty: 90 3RF Incruse Ellipta 62.5 mcg/actuation blister with device 1 inh inhalation DAILY Qty: 1 6RF rosuvastatin 40 mg tablet 40 mg PO BEDTIME ketotifen fumarate 0.025 % (0.035 %) drops 2 drp ophthalmic (eye) DAILY simethicone 180 mg capsule 180 mg PO QID 30 Days Qty: 120 6RF Rx Instructions: after meals Print Language: Vietnamese
[2024-09-12 13:54] LABS: MANUAL DIFF FLAG NO
[2024-09-12 13:56] LABS: Basophils Percent Auto 0.2 % (0-2); Eosinophils Absolute Auto 0.1 X10*3/uL (0.0-0.4); Eosinophils Percent Auto 1.3 % (0-4); Hematocrit 36.8 % (37.0-47.0); Hemoglobin 12.2 g/dl (12.0-16.0); Imm Gran Abs Auto 0.01 X10*3/uL (0.00-0.03); Imm Gran Pct Auto 0.2 % (0.0-0.4); Lymphocytes Absolute Auto 1.3 X10*3/uL (1.2-4.9); Lymphocytes Percent Auto 27.9 % (20-40); Mean Corpuscular HGB Conc 33.2 g/dl (31.0-35.0); Mean Corpuscular Hemoglobin 28.9 pg (27.0-33.0); Mean Corpuscular Volume 87.2 fL (80.0-98.0); Mean Platelet Volume 10.8 fL (9.4-12.3); Monocytes Absolute Auto 0.4 X10*3/uL (0.1-1.2); Neutrophils Absolute Auto 2.9 x10*3/uL (2.0-8.3); Neutrophils Percent Auto 61.4 % (45-73); Platelet Count 191 X10*3/uL (160-400); Red Blood Count 4.22 X10*6/uL (4.20-5.50); Red Cell Distribution Width 13.7 % (11.0-16.0); White Blood Count 4.8 X10*3/uL (4.8-10.8)
[2024-09-12 14:04] LABS: Prothrombin Time 11.9 SEC (10.9-12.4)
[2024-09-12 14:14] LABS: Alanine Aminotransferase 20 U/L (0-31); Albumin Level 4.5 g/dL (3.5-5.0); Alkaline Phosphatase 70 U/L (39-117); Anion Gap 10 (12-20); Aspartate Amino Transferase 25 U/L (5-31); Bilirubin Direct 0.2 mg/dL (0.0-0.5); Bilirubin Total 0.6 mg/dL (0.0-1.0); Blood Urea Nitrogen 15 mg/dL (9-16); Calcium 9.4 mg/dL (8.4-10.2); Carbon Dioxide 30 mmol/L (22-29); Chloride 105 mmol/L (96-108); Creatinine Clr Calc Pharmacy 68.7; Estimated Glomerular Filt Rate > 60; Glucose Random 72 mg/dL (60-115); Potassium 3.7 mmol/L (3.3-5.1); Sodium 141 mmol/L (135-145); Total Protein 8.1 g/dL (6.5-8.0)
[2024-09-12 14:19] LABS: B Type Natriuretic Peptide 32 pg/mL (<100)
[2024-09-12 14:23] LABS: Troponin-I High Sensitivity < 2.7 ng/L (<3.5-17.0)
[2024-09-12 14:33] LABS: Influenza A PCR NEGATIVE (Negative); Influenza B PCR NEGATIVE (Negative); Resp Syncy Virus RNA Qual PCR NEGATIVE (Negative); SARS COV2 PCR INHOUSE NEGATIVE (Negative)
[2024-09-12 20:26] VITALS: BP 130/75; PULSE 72; RESP 16; TEMP 36.4; O2SAT 95
--- NOTE | 2024-09-12 20:33 | PC.NURSE ---
Spoke with patient using hospital reed press feeder. Pt resting on stretcher and understands to ask for assistance.
[2024-09-12 20:42] LABS: Appearance Urine Clear; Color Urine Yellow; Glucose Urine UA Negative (Negative); Leukocyte Esterase Urine Moderate (2+) (Negative); Nitrite Urine Negative (Negative); PH 6.5 (5.0-9.0); Specific Gravity - Urine 1.015 (1.005-1.025); UMIC TRIGGER UACC YES; Urine Blood Small (1+) (Negative); Urine Ketones Negative (Negative); Urine Protein Negative (Neg-Trace)
[2024-09-12 20:59] LABS: Bacteria Urine 3+ (None Seen); Hyaline Casts Urine 0-2 /LPF (0-2); RBC Urine 0-2 /HPF (0-2); UACC Culture Trigger YES
[2024-09-12 21:59] VITALS: BP 146/91; PULSE 75; RESP 16; TEMP 36.4; O2SAT 97
[2024-09-12 22:02] VITALS: BP 146/91; PULSE 75; RESP 16; O2SAT 97
== END 2024-09-12 22:05 | disposition home or self-care (01) ==
PROVIDERS: Physician Assistant; Emergency Provider Emergency Medicine; PCP Internal Medicine
DX: R07.89 Other chest pain (principal); M54.50 Low back pain, unspecified; R94.31 Abnormal electrocardiogram [ECG] [EKG]; R60.0 Localized edema; Z03.818 Encounter for observation for suspected exposure to other biological agents ruled out; Z79.899 Other long term (current) drug therapy; Z87.891 Personal history of nicotine dependence
CPT/HCPCS: 0241U; 36415; 71046; 80048; 80076; 81001; 83735; 83880; 84484; 85025; 85610; 87086; 93005; 93971; 99284

== ENCOUNTER → 2024-09-12 13:23 | Outpatient (BNV) | payer MEDICAID, SELFPAY | PROVIDERS: Emergency Provider Emergency Medicine; PCP Internal Medicine; Visit Provider Internal Medicine Cardiovascular Disease | DX: R94.31 Abnormal electrocardiogram [ECG] [EKG] (principal); R07.9 Chest pain, unspecified | CPT/HCPCS: 93010 ==

== ENCOUNTER → 2024-09-12 13:39 | Outpatient (BNV) | payer MEDICAID, SELFPAY | PROVIDERS: PCP Internal Medicine; Visit Provider Radiology Diagnostic Radiology | DX: R22.41 Localized swelling, mass and lump, right lower limb (principal); R07.9 Chest pain, unspecified | CPT/HCPCS: 71046; 93971 ==

== ENCOUNTER 2024-09-20 13:40 | Outpatient (AMB) | payer MEDICAID, SELFPAY ==
--- OUTSIDE RECORDS SUMMARY | 2024-09-20 13:53 | XMS_ITS | Clinical Summary ---
Author Organization [employer] Address [address] [place] [address] Care Team Providers Care Rn Staffing Name Role Phone Unavailable Primary Care Provider [...] by mouth at bedtime. 4 Active Genvoya [phone] MG tablet Take 1 tablet by mouth [...] Encounters Date Type Department Care Team Description 08/24/2024 Travel from Last 3 Months Immunizations Immunization Administration Dates Next Due Hep A, Adult 10/18/2006 Influenza Injectable Quadriv alant Preservative Free IIV4 MDCK 12/31/2022 Influenza injectable quadriv alent preservative free 02/09/2022,02/15/2020,02/14/2019 Influenza, Split (incl. bijal fied surface antigen) 2013 Influenza, seasonal, injecta ble, preservative free 02/08/2024,01/30/2016,02/19/2015 Moderna Covid-19 Vaccine 12+ 08/14/2020 Pneumococcal Conjugate PCV 13 02/19/2015 Pneumococcal Polysaccharide PPSV23 03/22/2012, RSV Bivalent 08/24/2024 Tdap 12/09/2017 Zoster, Recombinant 03/04/2023,12/31/2022 Social History [...] Panel 1961 SDOH Screening 1961 Sigmoidoscopy 1961 Disability Screening 1961 Meningococcal Vaccine (1 - Risk 2-dose series) 1963 Alcohol/Substance Use Screening 1973 Pap Smear 1982 Cervical Cancer Screening 1991 HPV/Cotest 1991 Mammogram 2001 Hepatitis A Vaccines (2 of 2 - Risk 2-dose series) 04/20/2007 10/18/2006 Pneumococcal Vaccine: 50+ Years (4 of 4 - PCV20 or PCV21) 02/20/2020 02/19/2015, 03/22/2012, 05/08/2006 Hepatitis B Vaccines (1 of 3 - Risk 3-dose series) 2021 COVID-19 Vaccine (4 - season) 2023 05/19/2021, 08/14/2020, 07/24/2020 Dental Oral [...] Completed 02/08/2024, , 02/09/2022, Additional history exists RSV Patients and Patients Aged 60 years or older Completed 08/24/2024 HIB Vaccines Aged Out No longer eligi ble based on patient's age to complete this topic HPV Vaccines Aged Out No longer eligi ble based on patient's age to complete this topic IPV Vaccines Aged Out No longer eligi ble based on patient's age to complete this topic Meningococcal B Vaccine Aged Out No l onger eligible based on patient's age to complete [...] Most Recently Relevant to Health Maintenance Insurance [facility] STANDARD DENTAL-[facility] MEDICAID STAND ADULT
--- NOTE | 2024-09-20 14:03 | MHC.OFFVIS ---
Vital Signs 09/20/24 14:04 Height 5 ft 3 in Weight 198 lb 6.656 oz BMI 35.1 BP 120/76 Blood Pressure Location Lt brachial Position Sitting Pulse 68 Intake Visit Reasons: FU after CTA Intake Note: Follow-up post CTA c/o fatigue Product/Industry Consultant Required: Yes Product/Industry Consultant Services: Product/Industry Consultant Present Product/Industry Consultant Name: cecille Meza Allergies shellfish derived Allergy (Intermediate, Verified 09/12/24 13:31) HIVES, N/V Medication List - Last Reconciled 09/20/24 by Finn Kincaid NP albuterol sulfate 2.5 mg inhalation TID PRN albuterol sulfate 90 mcg/actuation (Ventolin HFA) 2 puffs inhalation QID PRN diphenhydramine HCl 25 mg PO BEDTIME tgosdhg-egx-gvyol-tenof alafen 276-136-166-10 mg (Genvoya) 1 tab PO DAILY fluticasone furoate-vilanterol 200-25 mcg/dose (Breo Ellipta) 1 ea inhalation DAILY furosemide 20 mg PO DAILY 30 days hydrocortisone 1% (Cortisone (hydrocortisone)) 1 appl topical BID PRN ketotifen fumarate 0.025%(0.035%) 2 drps ophthalmic (eye) DAILY linaclotide (Linzess) 145 mcg PO DAILY loratadine 10 mg PO DAILY losartan 100 mg PO DAILY meclizine 12.5 mg PO TID PRN meloxicam 15 mg PO DAILY metronidazole (Flagyl) 375 mg PO BID 7 days naproxen 500 mg PO BID PRN 7 days omeprazole 20 mg PO DAILY@0630 ondansetron 4 mg PO Q6H PRN pyridoxine (vitamin B6) 100 mg PO DAILY 90 days rosuvastatin 40 mg PO BEDTIME sertraline 100 mg PO DAILY PRN simethicone 180 mg PO QID 30 days triamcinolone acetonide 0.5% 1 appl topical BID PRN umeclidinium 62.5 mcg/actuation (Incruse Ellipta) 1 inh inhalation DAILY walker (Ultra-Light Rollator misc) As directed zolpidem 10 mg PO BEDTIME HPI Comments Details: This is a 64-year-old female patient coming in for a follow-up visit. A geospatial information technologist was used throughout the visit. Patient with a history of hypertension, hyperlipidemia, and emphysema. Patient was previously seen in the office for chest pain and shortness of breath. Patient subsequently underwent a coronary CTA. Today, patient reports feeling well overall and denies any exertional chest pain, palpitations, dizziness, orthopnea, PND, leg edema, presyncope, or syncope. Patient reports that her symptoms of chest pain have resolved and that her shortness of breath have improved significantly. Patient is affirming compliance to all her medications. 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 HIV (human immunodeficiency virus infection) History of blood transfusion Anemia Hx of renal calculi Difficulty swallowing GERD (gastroesophageal reflux disease) Hepatitis Depression Sleep apnea Asthma Elevated cholesterol HTN (hypertension) Surgical History Hx of colonoscopy Hx of cystoscopy Hx of dilation and curettage Hx of section Hx of reduction mammoplasty Hx of tubal ligation Hx of cholecystectomy Family History Mother Breast cancer Father Heart problem Sister Bone cancer Family/Other Diabetes Social History Household Members: Family Housing: Apartment Housing Other:: lives alone, son staying with her Are you a primary home care and home health aides teacher to a significant other at home: No Do you presently have visiting nurse or other home services: No Unable to assess alcohol history related to: Unknown Alcohol intake: current Alcohol intake frequency: holidays/special occasions only Alcohol type: wine Comment: low falls risk Patient Tobacco Use Status: Former Tobacco user Tobacco use type: Cigarette Cigarette Packs Per Day: 2 Cigarettes Per Day: 40.0 Years Smoked: 40 e-Cigarette/Vaping Use: Never Used Second Hand Smoke Exposure: No Substance Use Type: Former Substance User service: No Sexual orientation: Straight/Heterosexual Gender identity: Female Female Reproductive History Menstrual Age of Menarche: 12 Review of Systems Const Denies chills, Denies fatigue, Denies fever(s), Denies frequent falls, Denies weakness, Denies weight gain and Denies weight loss ENT Denies dizziness Card Denies chest pain, Denies leg edema, Denies lightheadedness, Denies palpitations, Denies dyspnea, Denies dyspnea on exertion, Denies orthopnea and Denies other (loss of consciousness) Resp Denies cough, Denies dyspnea and Denies dyspnea on exertion GI Denies hematochezia and Denies change in stool character Musc Denies abnormal gait, Denies muscle weakness, Denies numbness, Denies radiating pain into limb and Denies tingling Neuro Denies abnormal gait, Denies dizziness, Denies frequent falls, Denies numbness, Denies tingling and Denies weakness Endo Denies fatigue and Denies palpitations Physical Exam Vital Signs: Last Vital Signs Pulse 68 09/20/24 14:04 BP 120/76 09/20/24 14:04 BMI result Body Mass Index 35.1 Const General: cooperative, healthy appearing, comfortable and no acute distress Orientation/consciousness: patient oriented x3 HEENT Head: Yes normal to inspection Neck Neck: Yes normal visual inspection, Yes trachea midline and Yes supple Chest Chest palpation & inspection: normal inspection of the chest Resp Effort & Inspection: normal respiratory effort Auscultation: clear to auscultation bilaterally, no crackles, no rales, no rhonchi and no wheezes Cardio Jugular venous distension: no JVD Palpation: normal PMI Rate: regular rate Rhythm: regular rhythm Heart sounds: S1 normal heart sound present, S2 normal heart sound present, no click, no gallops, no murmurs and no rubs Peripheral pulses: Peripheral pulses 2+ throughout GI Inspection: Yes normal to inspection Palpation (GI): Soft to palpation Auscultation: normal bowel sounds Skin General skin exam: no rashes or lesions noted Neuro General: patient oriented x3 Extrem General: Yes normal to inspection, No no pedal edema and No calf tenderness Psych Appearance: grossly normal Mental Status: mental status grossly normal Speech and movement: Normal speech and movement present Assessment & Plan Assessment & Plan (1) Precordial chest pain: Code(s): R07.2 - Precordial pain Category: Medical (2) Shortness of breath: Code(s): R06.02 - Shortness of breath Category: Medical Plan 08/17/2024-patient underwent a coronary CTA that showed no evidence of atherosclerotic coronary artery disease. Given above finding and resolution of her symptoms, no further testing indicated at this time. Patient shortness of breath could more likely be due to her emphysema. Patient states that she has upcoming workup for sleep apnea, being followed by pulmonology. Clinically euvolemic and stable. Continue current regimen. Blood pressure today is well-controlled. Ideally, blood pressure goal less than 130/80. Continue statin therapy with an LDL goal less than 100. Advised heart healthy diet, regular exercise, losing weight, med compliance, and management of vascular risk factors. Follow up in the office on an as-needed basis. In the interim, patient will call the office with any concerns or change in symptoms. This note was generated using voice recognition software. 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 Coding Level of Care Code Est Pt Level 3 (46195) Complex EM visit Add On G2211 Diagnoses Precordial chest pain R07.2 Shortness of breath R06.02 Time Spent (min) 29 Comment Time spent in reviewing the chart, test results, assessment, counseling and documentation.
[2024-09-20 14:04] VITALS: BP 120/76; PULSE 68; BMI 35.1
== END 2024-09-20 14:28 | disposition home or self-care (01) ==
LOC: HO.HCS 13:40
PROVIDERS: PCP Internal Medicine
DX: R07.2 Precordial pain (principal); R06.02 Shortness of breath
CPT/HCPCS: 99213

== ENCOUNTER → 2024-09-20 13:40 | Outpatient (BNVA) | payer MEDICAID, SELFPAY | PROVIDERS: PCP Internal Medicine | DX: R07.2 Precordial pain (principal); R06.02 Shortness of breath | CPT/HCPCS: 99212 ==

== ENCOUNTER → 2024-10-19 09:22 | Outpatient (REF) | payer MEDICAID, SELFPAY ==
--- OUTSIDE RECORDS SUMMARY | 2024-10-19 09:40 | XMS_ITS | Clinical Summary ---
Author Organization [employer] Address [address] [place] [address] Care Team Providers Care Rn Procedure Name Role Phone Unavailable Primary Care Provider [...] by mouth at bedtime. 4 Active Genvoya [phone] MG tablet Take 1 tablet by mouth [...] Recently Relevant to Health Maintenance Insurance [facility] STANDARD DENTAL-[facility] MEDICAID STAND ADULT
--- OUTSIDE RECORDS SUMMARY | 2024-10-19 09:40 | XMS_ITS | Patient Health Record ---
Author Organization Alec Strickland III, MD Address [address] [place] [address] Care Team Providers Care Furnishings Conservator Name Role Phone Kesha PRECIADO, [facility] Primary Care Provider Alec Beckwith Unavailable [phone] Allergies Allergen (clinical drug ingredient) Drug/Non Drug [...] Problem Status W/U Status Risk Notes Problem 9323844 Former smoker (Z87.891) Active confirmed She has a plan for prevention of relapse in times of stress. I have counseled her about ongoing smoking cessation. Problem 79606269 Hyperlipidemia (E78.5) Active confirmed A fasting lipid profile is not available and has been requested from primary care. Problem 086310764 Asthma (J45.909) Active confirmed It is pollen season and she has occasional wheezing. This is controlled with her medications. Problem 96737113 Hepatitis C (B19.20) Active confirmed There is no sig n at this time of ongoing active infection. Problem 045422986 Anemia (D64.9) Active confirmed Her hematocrit is 34% with a normal mean cell volume. This is likely the anemia of chronic disease and will be observed. Problem 504710802 Thrombocytopenia (D69.6) Active confirmed Her platelet count is now normal at 174,000. The value will be observed. Problem 31531676 Human immunodeficiency virus [HIV] disease (B20) Active confirmed She has not developed any recent infections or HIV related neoplasms. She is compliant with the recommendations of infectious disease. The viral load is well controlled. Problem 299248757 Lobular carcinom a in situ of right breast (D05.01) Active confirmed There is no sign of recurrent disease. She is due for mammography and a study has been ordered. 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 It was thought to be reactive. Problem 65636527 Essential hypertension (I10) Active confirmed Her blood pressure has been normal. She was referred back to primary care for measurement. Problem 99372223 Depressive disorder, not elsewhere classified (F32.9) Active confirmed Her depre ssion is stable and well controlled and she is compliant with her medication. Problem 610827915 Obesity (BMI 35.0-39.9 without comorbidity) (E66.01) Active confirmed Her body mass index is 29 and I have recommended regular exercise and weight reduction through a diet restricted in calories fat in sodium. She has lost six pounds since her last visit. Problem 37167574 Sleep apnea (G47.30) Active confirmed She has been treated for this and denies any daytime somnolence. No additional therapy is necessary. She says she has been compliant with treatment Problem 199129919 H/O carpal tunne l syndrome (Z86.69) Active confirmed She has mi ld symptoms of neuropathy in her hands but these are mild and she is conducting all the activities of daily life without impairment. Problem 501413714 Chronic kidney disease, stage I (N18.1) Active confirmed Her most recent available renal functions are normal. These will be followed carefully. On June 08, 2021. The BUN was 18, creatinine was normal. Problem 83918621 Hepatitis B (B19.10) Active confirmed There is [...] Date [place]ID [place] [address] [place], [place] [id number] America Bower Self - patient is the [...]
== END ==
LOC: HO.SL 09:22
PROVIDERS: PCP Internal Medicine; Visit Provider Internal Medicine Pulmonary Disease
DX: G47.33 Obstructive sleep apnea (adult) (pediatric) (principal); G47.30 Sleep apnea, unspecified
CPT/HCPCS: 95806

== ENCOUNTER → 2024-10-19 09:36 | Outpatient (BNV) | payer MEDICAID, SELFPAY | PROVIDERS: PCP Internal Medicine; Visit Provider Internal Medicine | DX: G47.33 Obstructive sleep apnea (adult) (pediatric) (principal) | CPT/HCPCS: 95806 ==

== ENCOUNTER 2024-11-01 12:12 | Outpatient (AMB) | payer MEDICAID, SELFPAY ==
--- OUTSIDE RECORDS SUMMARY | 2024-11-01 13:13 | XMS_ITS | Patient Health Record ---
Author Organization Alec Strickland III, MD Address [address] [address] Care Team Providers Care Senior Mechanical Development Engineer Name Role Phone Kesha PRECIADO, [facility] Primary Care Provider Alec Beckwith Unavailable [phone] Allergies Allergen (clinical drug ingredient) Drug/Non Drug [...] Problem Status W/U Status Risk Notes Problem 6544397 Former smoker (Z87.891) Active confirmed She has a plan for prevention of relapse in times of stress. I have counseled her about ongoing smoking cessation. Problem 90897757 Hyperlipidemia (E78.5) Active confirmed A fasting lipid profile is not available and has been requested from primary care. Problem 426789649 Asthma (J45.909) Active confirmed It is pollen season and she has occasional wheezing. This is controlled with her medications. Problem 57744641 Hepatitis C (B19.20) Active confirmed There is no sig n at this time of ongoing active infection. Problem 557101751 Anemia (D64.9) Active confirmed Her hematocrit is 34% with a normal mean cell volume. This is likely the anemia of chronic disease and will be observed. Problem 626115096 Thrombocytopenia (D69.6) Active confirmed Her platelet count is now normal at 174,000. The value will be observed. Problem 44108043 Human immunodeficiency virus [HIV] disease (B20) Active confirmed She has not developed any recent infections or HIV related neoplasms. She is compliant with the recommendations of infectious disease. The viral load is well controlled. Problem 513757955 Lobular carcinom a in situ of right breast (D05.01) Active confirmed There is no sign of recurrent disease. She is due for mammography and a study has been ordered. 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 It was thought to be reactive. Problem 39255059 Essential hypertension (I10) Active confirmed Her blood pressure has been normal. She was referred back to primary care for measurement. Problem 56414299 Depressive disorder, not elsewhere classified (F32.9) Active confirmed Her depre ssion is stable and well controlled and she is compliant with her medication. Problem 789453179 Obesity (BMI 35.0-39.9 without comorbidity) (E66.01) Active confirmed Her body mass index is 29 and I have recommended regular exercise and weight reduction through a diet restricted in calories fat in sodium. She has lost six pounds since her last visit. Problem 09861553 Sleep apnea (G47.30) Active confirmed She has been treated for this and denies any daytime somnolence. No additional therapy is necessary. She says she has been compliant with treatment Problem 287973172 H/O carpal tunne l syndrome (Z86.69) Active confirmed She has mi ld symptoms of neuropathy in her hands but these are mild and she is conducting all the activities of daily life without impairment. Problem 892617853 Chronic kidney disease, stage I (N18.1) Active confirmed Her most recent available renal functions are normal. These will be followed carefully. On June 08, 2021. The BUN was 18, creatinine was normal. Problem 08441984 Hepatitis B (B19.10) Active confirmed There is [...] Date [place] [address] [place], [place] [id number] America Bower Self - patient is the [...]
--- OUTSIDE RECORDS SUMMARY | 2024-11-01 13:13 | XMS_ITS | Clinical Summary ---
Author Organization [employer] Address [address] [place] [address] Care Team Providers Care Over The Horizon Targeting Supervisor Name Role Phone Unavailable Primary Care [...] by mouth at bedtime. 4 Active Genvoya [phone] MG tablet Take 1 tablet by mouth [...] 10/11/2024 10/11/19, 11/04/2021, 09/27/2020, Additional history exists Influenza Vaccine (#1) 2024 , 12/31/2022, 02/09/2022, Additional history exists Dental X-Ray: Full Mouth 10/11/2026 10/11/2023, 06/17 DTaP/Tdap/Td Vaccines (2 - Td or Tdap) 12/10/2027 12/09/2017 Zoster Vaccines Completed 03/04/2023, 12/31/2022 RSV Patients and Patients Aged 60 years [...] Most Recently Relevant to Health Maintenance Insurance [facility] STANDARD DENTAL-[facility] MEDICA[facility] STAND ADULT [address] [place] [address]
[2024-11-01 13:23] VITALS: BP 158/80; PULSE 64; O2SAT 99; BMI 36.5
--- NOTE | 2024-11-01 13:23 | MHC.OFFVIS ---
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 Patient recent CT chest does not demonstrate significant interstitial disease. Her 2D echocardiogram is essentially normal. She continues on Lasix with reasonable control of dyspnea and lower extremity edema. She has been using Breo, Incruse, and albuterol MDI/nebs with good control of her pulmonary symptoms. Who sleep study showed underlying mild obstructive sleep apnea. 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 HIV (human immunodeficiency virus infection) History of blood transfusion Anemia Hx of renal calculi Difficulty swallowing GERD (gastroesophageal reflux disease) Hepatitis Depression Sleep apnea Asthma Elevated cholesterol HTN (hypertension) Surgical History Hx of colonoscopy Hx of cystoscopy Hx of dilation and curettage Hx of section Hx of reduction mammoplasty Hx of tubal ligation Hx of cholecystectomy Family History Mother Breast cancer Father Heart problem Sister Bone cancer Family/Other Diabetes Social History Household Members: Family Housing: Apartment Housing Other:: lives alone, son staying with her Are you a primary senior care provider to a significant other at home: No Do you presently have visiting nurse or other home services: No Unable to assess alcohol history related to: Unknown Alcohol intake: current Alcohol intake frequency: holidays/special occasions only Alcohol type: wine Comment: low falls risk Patient Tobacco Use Status: Former Tobacco user Tobacco use type: Cigarette Cigarette Packs Per Day: 2 Cigarettes Per Day: 40.0 Years Smoked: 40 e-Cigarette/Vaping Use: Never Used Second Hand Smoke Exposure: No Substance Use Type: Former Substance User service: No Sexual orientation: Straight/Heterosexual Gender identity: Female Female Reproductive History Menstrual Age of Menarche: 12 Review of Systems Const Denies daytime sleepiness, Denies excessive sweating, Denies fatigue, Denies fever(s), Denies lethargy, Denies malaise, Denies night sweats, Denies snoring and Denies weight loss Eyes Denies blurry vision and Denies itchy eyes ENT Denies nasal congestion, Denies post nasal drip, Denies sinus pain, Denies sinus pressure and Denies other ( Thrush) Card Denies chest pain, Denies pedal edema, Denies dyspnea, Denies orthopnea and Denies paroxysmal nocturnal dyspnea Resp Denies cough, Denies hemoptysis, Denies excessive phlegm production, Denies dyspnea, Denies snoring and Denies wheezing GI Denies abdominal pain and Denies heartburn Musc Denies myalgias, Denies arthralgias and Denies joint swelling Skin/Breast Denies rash Neuro Denies memory loss and Denies seizure-like activity Psych Denies abnormal sleep pattern, Denies anxiety and Denies memory loss Endo Denies excessive sweating, Denies fatigue and Denies heat intolerance Flaquito/Lymph Denies easy bruising Aller/Immun Denies itchy eyes, Denies seasonal rhinorrhea and Denies wheezing Physical Exam Vital Signs: Last Vital Signs Pulse 64 11/01/24 13:23 BP 158/80 H 11/01/24 13:23 Pulse Ox 99 11/01/24 13:23 Oxygen Delivery Method Room Air 11/01/24 13:23 BMI result Body Mass Index 36.5 Const General: no acute distress and alert Nutritional Appearance: not obese Orientation/consciousness: Other orientation findings ( oriented) HEENT Head: Yes atraumatic Eyes General: appearance normal, both eyes and all related structures Sclerae: sclerae normal EOM: EOMs intact bilaterally Neck Neck: Yes supple Lymphatic: no lymphadenopathy noted Resp Effort & Inspection: normal respiratory effort and no use of accessory muscles Auscultation: clear to auscultation bilaterally Cardio Rate: regular rate Rhythm: regular rhythm Heart sounds: no gallops, no murmurs and no rubs Skin General skin exam: other ( warm) Extrem General: No clubbing, No cyanosis and No edema Assessment & Plan Assessment & Plan (1) Reactive airway disease: Code(s): J45.909 - Unspecified asthma, uncomplicated Category: Medical Plan: Well controlled on current regimen of Breo, Incruse, and albuterol MDI/nebs. Continue current regimen. (2) Sleep apnea: Code(s): G47.30 - Sleep apnea, unspecified Category: Medical Plan: Results of sleep study reviewed, underlying mild obstructive sleep apnea with hypertension, will start on CPAP therapy. Coding Level of Care Code Est Pt Level 4 (13075) Diagnoses Reactive airway disease J45.909 Sleep apnea G47.30
== END 2024-11-01 13:38 | disposition home or self-care (01) ==
LOC: HO.HPS 12:13
PROVIDERS: PCP Internal Medicine; Visit Provider Internal Medicine Pulmonary Disease
DX: J45.909 Unspecified asthma, uncomplicated (principal); G47.30 Sleep apnea, unspecified
CPT/HCPCS: 99214

== ENCOUNTER → 2024-11-01 12:12 | Outpatient (BNVA) | payer MEDICAID, SELFPAY | PROVIDERS: PCP Internal Medicine; Visit Provider Internal Medicine Pulmonary Disease | DX: G47.30 Sleep apnea, unspecified (principal); I10 Essential (primary) hypertension; J45.909 Unspecified asthma, uncomplicated; B20 Human immunodeficiency virus [HIV] disease | CPT/HCPCS: 99212 ==

== ENCOUNTER 2024-11-02 10:35 | Outpatient (AMB) | payer MEDICAID, SELFPAY ==
--- NOTE | 2024-11-02 10:41 | A.OFFVIS_ITS ---
Vital Signs 11/02/24 10:47 Height 5 ft 3 in Weight 198 lb 6.656 oz BMI 35.1 BP 141/65 H Blood Pressure Location Lt brachial Position Sitting Pulse 66 Intake Visit Reasons: abdominal pain Intake Note: America presents in the office as a follow up for abdominal pains. CC: She states that she states that she is scheduled to have surgery on her uterus. She states that she is not having abdominal pains at this time. Bottom Brusher Required: Yes Bottom Brusher Name: Danita [id number] Allergies shellfish derived Allergy (Intermediate, Verified 11/02/24 10:47) HIVES, N/V HPI HPI abdominal pain: Details: Assessment & Plan (1) Chronic idiopathic constipation: Code(s): K59.04 - Chronic idiopathic constipation Category: Medical (2) GERD (gastroesophageal reflux disease): Comment: resolved after wt loss Code(s): K21.9 - Gastro-esophageal reflux disease without esophagitis Category: Medical (3) Serrated polyp of colon: Comment: 2020 scope repeat 3 years Code(s): K63.5 - Polyp of colon Category: Medical (4) Abdominal bloating: Code(s): R14.0 - Abdominal distension (gaseous) Category: Medical (5) Emphysema lung: Code(s): J43.9 - Emphysema, unspecified Category: Medical (6) Hepatitis: Comment: type B & C Code(s): K75.9 - Inflammatory liver disease, unspecified Category: Medical (7) Sleep apnea: Comment: pt.states was not given CPAP Code(s): G47.30 - Sleep apnea, unspecified Category: Medical (8) HTN (hypertension): Code(s): I10 - Essential (primary) hypertension Category: Medical (9) Pre-op examination: Code(s): Z01.818 - Encounter for other preprocedural examination Category: Medical Plan TURKMEN #Anastasia lIVE They have not resolved her eye swelling. She continues on her LInzess 145mcg and her simethicone. She continues to be satisfied with her GI regimen including her omeprazole. She is due for screening colonoscopy as her last was in 20 she would rather large polyp. She is agreeable to having this ordered today. There are no prior problems with anesthesia or sedation. She has COPD and sleep apnea which are well controlled and denies any cardiac problems. She has a history of HIV along with hepatitis B and C and is on antiviral therapy for. Return office visit in 6 months. Orders: Orders Colonoscopy - GI Use Only Today K63.5 - Polyp of colon Medications: New bisacodyl (Dulcolax (bisacodyl)) 10 mg (2 x 5 mg) PO BEDTIME 4 tabs 0RF 2 days simethicone after meals 180 mg PO QID 120 caps 6RF 30 days peg 3350-electrolytes 236-22.74-6.74 -5.86 gram (Golytely) until fecal effluent is clear; do not exceed a total volume of 2,000 mL 240 mL PO Q10M 4,000 mL 0RF 1 day Z12.11 - Encounter for screening for malignant neoplasm of colon Refilled omeprazole 20 mg PO DAILY 30 caps 6RF linaclotide (Linzess) 145 mcg PO QAM 30 caps 6RF K59.04 - Chronic idiopathic constipation COLONOSCOPY 05/12/24 Findings: Terminal Ileum: Not evaluated Cecum: Normal Ascending Colon: Normal Transverse Colon: Two 5-8 mm sessile polyps - removed with a cold snare Descending Colon: Normal Sigmoid Colon: A 7-8 mm diminutive appearing polyp - removed with a cold snare. Moderate diverticulosis Rectum: Normal Ano-rectum: Moderate internal hemorrhoids Impression and Post Procedure Diagnosis: Colonoscopy Findings: Three small polyps were removed Moderate diverticulosis seen in the sigmoid colon Moderate hemorrhoids on retroflexed exam. Plan: Pt has a FU appointment on 05/23/24 with Courtney Raines NP Repeat Colonoscopy in 3-5 years if polyps are adenomatous and due to history of adenomatous colon polyps BIOPSY Received: 05/12/24 Diagnosis A. Colon, transverse, polyps: Tubular adenomas, two; negative for high-grade dysplasia and adenoma. B. Colon, sigmoid, polyp: Polypoid colonic mucosa with no specific change; no adenomatous dysplasia seen. TODAY'S VISIT [facility] #[id number] The procedure needs to be repeated in 5 years r/t 2 TA's. The procedure was well tolerated. The results were explained and the patient is agreeable to the follow-up interval as stated. The bowel pattern has returned to normal. Education was provided to tell any 1st degree relatives about their findings to be sure that they are screened by age 45. Educated that they will be put on a recall list when it is time for their repeat scope but should they move out of state or away from the hospital they will need to remember along with their primary to repeat the procedure in a timely fashion to avoid any adverse complications. She continues to do well on her Linzess, omeprazole, and her simethicone. She will be having surgery at [facility] in November. ROV 6 mos. 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 HIV (human immunodeficiency virus infection) History of blood transfusion Anemia Hx of renal calculi Difficulty swallowing GERD (gastroesophageal reflux disease) Hepatitis Depression Sleep apnea Asthma Elevated cholesterol HTN (hypertension) Surgical History Hx of colonoscopy Hx of cystoscopy Hx of dilation and curettage Hx of section Hx of reduction mammoplasty Hx of tubal ligation Hx of cholecystectomy Family History Mother Breast cancer Father Heart problem Sister Bone cancer Family/Other Diabetes Social History Household Members: Family Housing: Apartment Housing Other:: lives alone, son staying with her Are you a primary professional healthcare representative to a significant other at home: No Do you presently have visiting nurse or other home services: No Unable to assess alcohol history related to: Unknown Alcohol intake: current Alcohol intake frequency: holidays/special occasions only Alcohol type: wine Comment: low falls risk Patient Tobacco Use Status: Former Tobacco user Tobacco use type: Cigarette Cigarette Packs Per Day: 2 Cigarettes Per Day: 40.0 Years Smoked: 40 e-Cigarette/Vaping Use: Never Used Second Hand Smoke Exposure: No Substance Use Type: Former Substance User service: No Sexual orientation: Straight/Heterosexual Gender identity: Female Female Reproductive History Menstrual Age of Menarche: 12 Review of Systems Const Denies fatigue, Denies fever(s), Denies night sweats, Denies poor appetite and Denies weight loss ENT Reports Normal hearing present, Denies dental pain, Denies dysphagia, Denies hearing loss, Denies mouth pain, Denies odynophagia, Denies throat swelling, Denies tongue swelling and Reports other (Dentition adequate) Card Reports no additional complaints Resp Reports no additional complaints GI Details: Denies abdominal pain, Denies melena, Reports bloating, Denies hematochezia, Reports constipation, Denies GI cramping, Denies dysphagia, Denies excessive flatus, Denies early satiety, Reports heartburn, Denies diarrhea, Denies nausea, Denies odynophagia, Denies vomiting and Denies hematemesis Skin/Breast Denies pruritus, Denies lesions, Denies rash and Denies jaundice Neuro Reports Normal hearing present and Denies Abnormal speech present Endo Denies fatigue Aller/Immun Denies throat swelling and Denies tongue swelling Physical Exam Vital Signs: Last Vital Signs Pulse 66 11/02/24 10:47 BP 141/65 H 11/02/24 10:47 BMI result Body Mass Index 35.1 Const General: cooperative, no acute distress, well developed and well groomed Nutritional Appearance: well nourished and obese Orientation/consciousness: oriented to person, oriented to place and oriented to time Limitations: language barrier HEENT Head: Yes normocephalic and Yes atraumatic Eyes General: appearance normal, both eyes and all related structures Pupils: Equal, round and reactive pupils present Neck Neck: Yes normal visual inspection and Yes no lymphadenopathy Thyroid: Thyroid normal Resp Effort & Inspection: normal respiratory effort and able to speak in complete sentences Auscultation: clear to auscultation bilaterally Cardio Rate: regular rate Rhythm: regular rhythm Heart sounds: Normal, physiologic split S2 sound present Peripheral pulses: radial pulses present and posterior tibial pulses present GI Inspection: No distended, No Abdominal panniculus present and Yes obesity Palpation (GI): Soft to palpation, nontender, no guarding, not rigid and No hepatosplenomegaly present Percussion: Yes normal to percussion Auscultation: normal bowel sounds Rectal Exam - Female: deferred Skin General skin exam: no rashes or lesions noted, turgor normal, skin not dry, no jaundice, No spider nevi and no striae Rashes: no rashes Nails: normal Neuro General: oriented to person, oriented to place and oriented to time Cranial nerves: Yes Equal, round and reactive pupils present and Yes Normal hearing present Speech: No Abnormal speech present Extrem General: Yes normal to inspection, No clubbing, No cyanosis and No edema Psych Appearance: grossly normal and well kempt Mental Status: mental status grossly normal Speech and movement: Normal speech and movement present Affect: normal affect Attitude: cooperative Thought process: Normal thought process present and not confabulating Thought content: Normal thought content present Insight: Fair insight present (Psych) Judgement: Fair judgement present (Psych) Assessment & Plan Assessment & Plan (1) Tubular adenoma of colon: Comment: 04/2024 scope= 2 TA is repeat in 5 years Code(s): D12.6 - Benign neoplasm of colon, unspecified Category: Medical (2) GERD (gastroesophageal reflux disease): Comment: resolved after wt loss Code(s): K21.9 - Gastro-esophageal reflux disease without esophagitis Category: Medical (3) Chronic idiopathic constipation: Code(s): K59.04 - Chronic idiopathic constipation Category: Medical Plan [facility] #[id number] The procedure needs to be repeated in 5 years r/t 2 TA's. The procedure was well tolerated. The results were explained and the patient is agreeable to the follow-up interval as stated. The bowel pattern has returned to normal. Education was provided to tell any 1st degree relatives about their findings to be sure that they are screened by age 45. Educated that they will be put on a recall list when it is time for their repeat scope but should they move out of state or away from the hospital they will need to remember along with their primary to repeat the procedure in a timely fashion to avoid any adverse complications. She continues to do well on her Linzess, omeprazole, and her simethicone. She will be having surgery at [facility] in November. ROV 6 mos. Coding Level of Care Code Est Pt Level 3 (39083) Diagnoses Tubular adenoma of colon D12.6 GERD (gastroesophageal reflux disease) K21.9 Chronic idiopathic constipation K59.04
[2024-11-02 10:47] VITALS: BP 141/65; PULSE 66; BMI 35.1
--- OUTSIDE RECORDS SUMMARY | 2024-11-02 11:09 | XMS_ITS | Clinical Summary ---
Author Organization [employer] Address [address] [place] [address] Care Team Providers Care General Inspector Name Role Phone Unavailable Primary Care [...] by mouth at bedtime. 4 Active Genvoya [phone] MG tablet Take 1 tablet by mouth [...] Most Recently Relevant to Health Maintenance Insurance [facility] STANDARD DENTAL-[facility] MEDICAID STAND ADULT [address], [place] [address]
--- OUTSIDE RECORDS SUMMARY | 2024-11-02 11:09 | XMS_ITS | Patient Health Record ---
Author Organization Alec Strickland III, MD Address [address] [place] [address] Care Team Providers Care Fruit Grower Name Role Phone Kesha PRECIADO, [facility] Primary Care Provider Alec Beckwith Unavailable [phone] Allergies Allergen (clinical drug ingredient) Drug/Non Drug [...] Problem Status W/U Status Risk Notes Problem 5009386 Former smoker (Z87.891) Active confirmed She has a plan for prevention of relapse in times of stress. I have counseled her about ongoing smoking cessation. Problem 50281379 Hyperlipidemia (E78.5) Active confirmed A fasting lipid profile is not available and has been requested from primary care. Problem 909352457 Asthma (J45.909) Active confirmed It is pollen season and she has occasional wheezing. This is controlled with her medications. Problem 76487178 Hepatitis C (B19.20) Active confirmed There is no sig n at this time of ongoing active infection. Problem 478960679 Anemia (D64.9) Active confirmed Her hematocrit is 34% with a normal mean cell volume. This is likely the anemia of chronic disease and will be observed. Problem 747545269 Thrombocytopenia (D69.6) Active confirmed Her platelet count is now normal at 174,000. The value will be observed. Problem 53877810 Human immunodeficiency virus [HIV] disease (B20) Active confirmed She has not developed any recent infections or HIV related neoplasms. She is compliant with the recommendations of infectious disease. The viral load is well controlled. Problem 912795200 Lobular carcinom a in situ of right breast (D05.01) Active confirmed There is no sign of recurrent disease. She is due for mammography and a study has been ordered. 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 It was thought to be reactive. Problem 75651281 Essential hypertension (I10) Active confirmed Her blood pressure has been normal. She was referred back to primary care for measurement. Problem 28959848 Depressive disorder, not elsewhere classified (F32.9) Active confirmed Her depre ssion is stable and well controlled and she is compliant with her medication. Problem 093559745 Obesity (BMI 35.0-39.9 without comorbidity) (E66.01) Active confirmed Her body mass index is 29 and I have recommended regular exercise and weight reduction through a diet restricted in calories fat in sodium. She has lost six pounds since her last visit. Problem 18030719 Sleep apnea (G47.30) Active confirmed She has been treated for this and denies any daytime somnolence. No additional therapy is necessary. She says she has been compliant with treatment Problem 495375665 H/O carpal tunne l syndrome (Z86.69) Active confirmed She has mi ld symptoms of neuropathy in her hands but these are mild and she is conducting all the activities of daily life without impairment. Problem 338453086 Chronic kidney disease, stage I (N18.1) Active confirmed Her most recent available renal functions are normal. These will be followed carefully. On June 08, 2021. The BUN was 18, creatinine was normal. Problem 64544774 Hepatitis B (B19.10) Active confirmed There is [...] Date MED[place]ID [place] [address] [place], [place] [id number] America Bower Self - patient is the [...]
== END 2024-11-02 11:02 | disposition home or self-care (01) ==
LOC: HO.HGI 10:35
PROVIDERS: PCP Internal Medicine; Visit Provider Nurse Practitioner
DX: D12.6 Benign neoplasm of colon, unspecified (principal); K21.9 Gastro-esophageal reflux disease without esophagitis; K59.04 Chronic idiopathic constipation
CPT/HCPCS: 99213

== ENCOUNTER → 2024-11-02 10:35 | Outpatient (BNVA) | payer MEDICAID, SELFPAY | PROVIDERS: PCP Internal Medicine; Visit Provider Nurse Practitioner | DX: K21.9 Gastro-esophageal reflux disease without esophagitis (principal); K59.04 Chronic idiopathic constipation; D12.6 Benign neoplasm of colon, unspecified | CPT/HCPCS: 99212 ==

== ENCOUNTER 2024-11-26 11:28 | Emergency (ER) | payer MEDICAID, SELFPAY ==
--- OUTSIDE RECORDS SUMMARY | 2024-11-22 11:00 | XMS_ITS | Continuity of Care Document ---
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 Name Role Phone Veronica Rebolledo MD Primary Care Physician [phone] Encounter [facility] [place] Date(s): 11/21/24 - 11/22/[address] [id number] Discharge Disposition: A-D/C Home Attending Physician: Dipti Arreaga MD Admitting Physician: Dipti Arreaga MD Referring Physician: Dipti Arreaga MD Encounter Type: Disch Daystay Allergies, Adverse Reactions, Alerts Substance Criticality Severity Reaction Reaction Severity Status Shellfish Active Medications acetaminophen 325 mg oral tablet 975 mg, By Mouth, Every 6 hours, # 55 tablet, Refills 3, Tot. Refills 3, Maintenance, 11/22/24 6:50:00 AM EDT, Route to Pharmacy Electronically, [facility] #[id number], Partial fill upon patient request if the prescription is for a schedule II opioid drug., 160, cm, 11/22/24 4:26:00 EDT, Height,91.9, kg, 11/21/24 18:35:00 EDT, Dry Weight Start Date: 11/22/24 Status: Ordered Quantity: 55.0 Unit: tablet Repeat number: 4 Advair Diskus 250 mcg-50 mcg inhalation powder INHALE 2 PUFFS BY MOUTH TWICE DAILY Start Date: 11/03/24 Status: Ordered Repeat number: 1 albuterol 2.5 mg/0.5 mL (0.5%) inhalation solution 45 each, 0 Refill(s), USE 1 VIAL VIA NEBULIZER THREE TIMES DAILY, 0 Refills, 08/02/24 10:47:00 AM EDT, Partial fill upon patient request if the prescription is for a schedule II opioid drug. Start Date: 08/02/24 Status: Ordered Repeat number: 1 dicyclomine 10 mg oral capsule TAKE 1 CAPSULE BY MOUTH THREE TIMES DAILY NEEDED DIRECTED FOR ABDOMINAL CRAMPS Start Date: 11/03/24 Status: Ordered Repeat number: 1 enoxaparin 40 mg/0.4 mL injectable solution 0.4 mL = 40 mg, Subcutaneous Injection, Every 24 hours, for 9 days, # 3.6 mL, 0 Refills, Acute 12/01/24 6:50:00 AM EDT, 11/22/24 6:50:00 AM EDT, Injection, [facility] #[id number], Partial fill uponpatient request if the prescription is for a schedule II opioid drug., 160, cm, 11/22/24 4:26:00 EDT, Height, 91.9, kg, 11/21/24 18:35:00 EDT, Dry Weight Start Date: 11/22/24 Stop Date: 12/01/24 Status: Ordered Quantity: 3.6 Unit: mL Repeat number: 1 Genvoya oral tablet 30 each, 0 Refill(s), TAKE 1 TABLET BY MOUTH DAILY WITH BREAKFAST, 0 Refills, 08/02/24 10:47:00 AM EDT, Partial fill upon patient request if the prescription is for a schedule II opioid drug. Start Date: 08/02/24 Status: Ordered Repeat number: 1 Incruse Ellipta 62.5 mcg/inh inhalation powder 30 each, 0 Refill(s), INHALE 1 PUFF BY MOUTH EVERY DAY, 0 Refills, 08/02/24 10:47:00 AM EDT, Partialfill upon patient request if the prescription is for a schedule II opioid drug. Start Date: 08/02/24 Status: Ordered Repeat number: 1 loperamide 2 mg oral capsule 2 mg, 1, capsule, By Mouth, Every 4 hours, PRN, # 60 capsule, Refills 0, Maintenance, for loose stool, 11/03/24 10:29:00 AM EDT, Partial fill upon patient request if the prescription is for a scheduleII opioid drug. Start Date: 11/03/24 Status: Ordered Quantity: 60.0 Unit: capsule Repeat number: 1 meloxicam 15 mg oral tablet 90 each, 0 Refill(s), TAKE 1 TABLET BY MOUTH EVERY DAY, 0 Refills, 08/02/24 10:48:00 AM EDT, Partialfill upon patient request if the prescription is for a schedule II opioid drug. Start Date: 08/02/24 Status: Ordered Repeat number: 1 MiraLax oral powder for reconstitution = 17 Gm, By Mouth, Daily, dissolve in 4 to 8 oz of beverage, # 238 Gm, 1 Refills, Maintenance, 11/22/24 6:50:00 AM EDT, REC Powder, [facility] #[id number], Partial fill upon patient request if theprescription is for a schedule II opioid drug., 17 Gm By Mouth Daily,Instr:dissolve in 4 to 8 oz ofbeverage, 160, cm, 11/22/24 4:26:00 EDT, Height, 91.9, kg, 11/21/24 18:35:00 EDT, Dry Weight Start Date: 11/22/24 Status: Ordered Quantity: 238.0 Unit: g Repeat number: 2 montelukast 10 mg oral tablet TAKE 1 TABLET BY MOUTH EVERY DAY Start Date: 11/03/24 Status: Ordered Repeat number: 1 oxyCODONE 5 mg oral tablet 5 mg, By Mouth, Every 4 hours, PRN, for 7 days, # 10 tablet, Refills 0, Tot. Refills 0, Acute 11/29/24 6:49:00 AM EDT, Pain , Severe, 11/22/24 6:49:00 AM EDT, Route to Pharmacy Electronically, [facility] #[id number], Partial fill upon patient request if the prescription is for a schedule II opioid drug., 160, cm, 11/22/24 4:26:00 EDT, Height, 91.9, kg, 11/21/24 18:35:00 EDT, Dry Weight Start Date: 11/22/24 Stop Date: 11/29/24 Status: Ordered Quantity: 10.0 Unit: tablet Repeat number: 1 rosuvastatin 40 mg oral tablet 90 each, 0 Refill(s), TAKE 1 TABLET BY MOUTH AT BEDTIME, 0 Refills, 08/02/24 10:48:00 AM EDT, Partial fill upon patient request if the prescription is for a schedule II opioid drug. Start Date: 08/02/24 Status: Ordered Repeat number: 1 simethicone 80 mg oral tablet, chewable 80 mg, Chew, 5 times a day, PRN, for 7 days, For Gaseous Distention/Discomfort, # 36 tablet, Refills 0, Tot. Refills 0, Acute 11/29/24 6:49:00 AM EDT, Other, 11/22/24 6:49:00 AM EDT, Route to Pharmacy Electronically, [facility] #[id number], Partial fill upon patient request if the prescription isfor a schedule II opioid drug., 160, cm, 11/22/24 4:26:00 EDT, Height, 91.9, kg, 11/21/24 18:35:00 EDT, Dry Weight Start Date: 11/22/24 Stop Date: 11/29/24 Status: Ordered Quantity: 36.0 Unit: tablet Repeat number: 1 Ventolin HFA 108 mcg/inh inhalation aerosol with adapter 18 Gm, 0 Refill(s), INHAEL 2 PUFFS INTO THE LUNGS BY MOUTH FOUR TIMES DAILY NEEDED FOR ASTHMA, 0Refills, 08/02/24 10:48:00 AM EDT, Partial fill upon patient request if the prescription is for a schedule II opioid drug. Start Date: 08/02/24 Status: Ordered Repeat number: 1 Vitamin B6 100 mg oral tablet 90 each, 0 Refill(s), TAKE 1 TABLET BY MOUTH DAILY FOR KIDNEY STONES, 0 Refills, 08/02/24 10:48:00 AM EDT, Partial fill upon patient request if the prescription is for a schedule II opioid drug. Start Date: 08/02/24 Status: Ordered Repeat number: 1 zolpidem 10 mg oral tablet 30 each, 0 Refill(s), TAKE 1 TABLET BY MOUTH EVERY DAY AT BEDTIME, 0 Refills, 08/02/24 10:48:00 AM EDT, Partial fill upon patient request if the prescription is for a schedule II opioid drug. Start Date: 08/02/24 Status: Ordered Repeat number: 1 Problem List Condition Confirmation Course Effective Dates Status Health St atus Informant Anemia Confirmed Active Fibromyalgia Confirmed Active HIV disease Confirmed Active HTN (hypertension) Confirmed Active OA (osteoarthritis) Confirmed Active Emphysema lung Confirmed Active Severe obesity (BMI 35.0-39.9) with comorbidity Confirmed Active Social History Social History Type Response Smoking Status Never (less than 100 in lifetime) entered on: 11/03/24 Sex Sex Representation Female (finding) History and physical note * Event Display: History and Physical Hospital Authored Date: Hospital Progress note * Clemencia Elliott RN: PERFORM, SIGN, VERIFY Event Display: Progress Note Hospital Authored Date: [id number] Patient: YONATHAN FAUSTIN Age: 64 years Sex: Female : 1960 Associated Diagnoses: None Author: Clemencia Elliott RN Findings Narrative/Incidental Patient arrived to DC unit alert, oriented, room air, independant, eating, drinking- peripheral IV removed with tip intact. Plant Pathology Teacher called. All discharge instruction given to patient. Patient observed giving Lovenox injection. Family arrived to picker operator patient. Patient has no questions and state s she understands DC. Will continue to monitor.. 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 Surgery Goals & Outcomes, Genitourinary Pt will achieve normal/improved fluid balance, Pt will maintainadequate GI function appropriate for pt, Pt will maintain adequate function appropriate for pt, Pt will maintain normal fluid balance, Pt will resume normal pattern of elimination, Pt/caregiver will state understanding of self-care skills Interventions, Assess/monitor/maintain Genitourinary status, Assist & encourage pt with meticulous alexander care, Encourage PO fluid intake as allowed by diet, Assess for vaginal bleeding, institute pericare, Assess peripad for drainage, consistency, amount BH Goals/Interventions, Genitourinary Yes Genitourinary, Problem Start 11/21/2024 23:26 Reviewed Plan with, Genitourinary Patient Patient Progression, Genitourinary Patient progressing according to plan Genitourinary, Problem Ongoing Yes . Evaluation Pt alert and oriented x4. president ergonomic consulting used. VSS. Lungs cta, encouraged incentive spirometer. Pt abdomen softly distended. Abdominal lap sites x4, bandaids clean, dry, intact. Pt ambulated in hallway with walker and stand by assist. Pt c/o 8/10 pain. medicated with tylenol and ibuprofen withgood affect. Bed alarm activated. Call yung within reach. Bed in lowest locked position. Pt restingcomfortably at this time.. Note * Clemencia Elliott RN: PERFORM Event Display: Discharge/Transfer Note Hospital Authored Date: [id number] Nursing Discharge Note Entered On: 11/22/2024 8:29 EDT Performed On: 11/22/2024 8:28 EDT by Clemencia Elliott RN Nursing Discharge Note 2 Discharge Time : 11/22/2024 11:00 EDT Clemencia Elliott RN - 11/22/2024 11:05 EDT Discharge Level of Care at Discharge : Home/Fci/Foster Care Patient Left Unit Via : Wheelchair Patient Accompanied Off Unit with : Responsible adult, Other: STAFF DC Instructions Provided & Signed by Pt : Yes Patient Understands D/C Instructions : Yes Patient Instructions Discharge Signed : Yes Did Pt have Specialty Bed or Wound Vac : No Clemencia Elliott RN - 11/22/2024 8:28 EDT * Sanjana Brody DO: PERFORM Event Display: Discharge/Transfer Note Hospital Authored Date: [id number] Patient: ??YONATHNA FASUTIN ? Age:??64 Years?Sex:??Female?:??1960?? Admit Date Admission Date: 11/21/2024 Discharge Date 11/22/2024 Discharge Diagnoses Postoperative state, 11/21/2024 [facility] Course Patient is a 64yo who is now status post total laparoscopic hysterectomy, bilateral salpingectomy, right oophorectomy, cystoscopy which was uncomplicated. EBL 50mL. She stayed overnight for monitoring and meeting all postoperative milestones and appropriate for??discharge home today.?? Objective/Physical Exam on Day of Discharge Vitals & Measurements T:??98.3?F?? HR:??62??(Peripheral)?? RR:??18?? BP:??142/64?? SpO2:??100%?? HT:??160??cm?? WT:??91.9??kg?? BMI:??35.9?? Constitutional: Pleasant, alert, cooperative, no acute distress. Lungs: Unlabored breathing. Clear to auscultation bilaterally. Cardiovascular: S1/S2, Regular rate and rhythm, no murmurs.? Abdomen/GI: Soft, non-tender, non-distended, no rebound or guarding. Bandaids/steri strips C/D/I inin b/l lower quadrants. Biomedical Engineering Supervisor: No blood on pad. Extremities: No edema present bilaterally, no calf erythema Skin: No rash or jaundice. Neurological/Psychiatric: Appearance appropriate, mood and affect stable. Assessment/Plan Assessment:??Patient is a 64yo who is now status post total laparoscopic hysterectomy, bilateral salpingectomy, right oophorectomy, cystoscopy which was uncomplicated. EBL 50mL. She stayed overnight for monitoring. She is meeting all postoperative milestones. Ambulating, tolerating regular diet, voiding spontaneously. Denies nausea/vomiting. Pain is well controlled. Plan to initiate Lovenox todayfor prophylaxis for 10 days total.? Postoperative state (Z98.890):? Pain: tyl/oxy. Pt takes Meloxicam daily, therefore ibuprofen not sent Bowel regimen: senna/miralax Diet: regular I/O: adequate Prophylaxis: SCDs, Lovenox for??10 days sent Encourage ambulation, Incentive spirometer use ?? Patient discussed with Dr. Arreaga, attending physician.?? Future Appointments 2024 2:00 PM EDT ?? With: Dipti Arreaga MD Where: [facility] - Biomedical Engineering Supervisor [address] [place] [address]- Status: Pending 2024 1:40 PM EDT ?? With: Dipti Arreaga MD Where: [facility] - Biomedical Engineering Supervisor [address] [place] [address]- Status: Pending Procedures Performed This Visit Hysterectomy Total with Bilateral Salpingo-Oophorectomy Laparoscopic Cystoscopy Discharge Medications ???Acetaminophen (acetaminophen 325 mg oral tablet)???Albuterol (Ventolin HFA 108 mcg/inh inhalation aerosol with adapter)???Albuterol (albuterol 2.5 mg/0.5 mL (0.5%) inhalation solution)???Dicyclomine (dicyclomine 10 mg oral capsule)???Enoxaparin (enoxaparin 40 mg/0.4 mL injectable solution)???Flut icasone-Salmeterol (Advair Diskus 250 mcg-50 mcg inhalation powder)???Loperamide (loperamide 2 mg oral capsule)???Meloxicam (meloxicam 15 mg oral tablet)???Montelukast (montelukast 10 mg oral tablet)???Oxycodone (oxyCODONE 5 mg oral tablet)???Polyethylene Glycol 3350 (MiraLax oral powder for reconst itution)???Pyridoxine (Vitamin B6 100 mg oral tablet)???Rosuvastatin (rosuvastatin 40 mg oral tablet)???Simethicone (simethicone 80 mg oral tablet, chewable)???Zolpidem (zolpidem 10 mg oral tablet)??? cobicist/elvitegra/emtricitab/tenofov (Genvoya oral tablet)???umeclidinium (Incruse Ellipta 62.5 mcg/inh inhalation powder) Patient Instructions Call the office with any concerns including:?? -Vaginal bleeding more than spotting -Fever of 100.4 or greater -Foul-smelling vaginal discharge -Redness/swelling/drainage at incision -Difficulty or burning with urination?? -Nausea and vomiting with inability to tolerate food,?? -Pain not controlled by your prescribed medications -Shortness of breath or chest pain. Swelling of the extremities. -Dizziness or heart palpitations ?? General Instructions: - Do not drive while taking opioid medications. Do not drive for 1-2 weeks - Avoid lifting anything 15 lbs or greater until cleared by doctor. - Stairs are OK but avoid multiple trips/ skipping steps and go slowly. - Walk as often as you are able. - Do not put anything in the vagina. No intercourse, tampons, or douching - Continue your stool softeners (senna, Miralax) until no longer taking opioids (oxycodone) and stools are regular. - Shower as usual. Do not scrub the incisions. Pat the skin dry. Avoid tubs/ soaking/ pools. * Whitley PRECIADO, Dipti: PERFORM Event Display: Discharge/Transfer Note Hospital Authored Date: [id number] Attending Attestation:??I have seen and evaluated this patient??on the date of service. ??I have discussed the case and its management with the resident and agree with the findings and plan as documented in the resident???s note.?? Patient passing all milestones and stable for discharge pending lovenox administration this AM. Follow up in office scheduled in two weeks. * Clemencia Elliott RN: PERFORM Event Display: Patient Education/Instruction Authored Date: [id number] Inpatient Adult Discharge Instructions. [place] [id number] Name: YONATHAN FAUSTIN : 1960?? Visit: 11/21/2024 05:32?? Current Date: 11/22/2024 08:29 ?? Account: [id number]?? Inpatient Adult Discharge Instructions We would like to thank you for allowing us to assist you with your healthcare needs. The following includes patient education materials and information regarding your injury/illness. Our entire staffstrives to provide an excellent experience for our patients and their families. PLEASE ENSURE YOU FOLLOW-UP PER THE INSTRUCTIONS BELOW! ?? YOUR OPINION IS IMPORTANT TO US! Please complete the survey you may receive by mail or email. Your feedback will be used to make improvements to the healthcare experiences of our patients and their families. Surveys are administered by [employer] ?? If further treatment with your primary care physician or another doctor is recommended, it is important for you to keep the appointment. Call your primary care physician or return to the Emergency Department immediately if your condition worsens, fails to improve, or new symptoms develop. If you need to find a doctor, you can call [facility] Link for a referral at [phone] or toll free at [phone] ([phone]) or log in to [email or web address].. ?? [facility], in keeping with [facility] guidance, no longer requires face masks for staff, patientsor visitors in most situations. Similiar to time spent indoors at other locations, there is the chance that you were exposed to repiratory viruses during your time with us (such as flu or COVID-19). If you develop symptoms concerning for a viral respiratory infection, please seek testing (and treatment if indicated) from your medical provider or home test kit. ?? You can view and manage your care through the patient portal or by using a health care tesha of your choosing. [employer] is a website that allows you to securely view your medical information including your hospital discharge summary, office visit summaries, medications and follow-up visits. You can also request appointments, renew medications, and request access to your medical information using a health care tesha of your choosing, or just ask a question. You are entitled to know the individuals who participated in your treatment. This information is available within your medical record and will be provided upon your request. You can enroll at [email or web address] or register d uring your next office visit. You have been discharged from [facility], Patient Care Unit: SW6??. If you have any questions regarding these instructions, including results of studies pending, afteryou leave, please call us and we will be happy to assist you 09/11. [facility] Your Care Team Attending Physician Dipti Arreaga MD?? Consulting Providers Dipti Arreaga MD?? Discharging Providers Dipti Arreaga MD Your Diagnosis Postoperative state Tests Performed Below is a partial list of the tests performed during your hospitalization. You may have had other tests and procedures not included in this list. Please discuss all test results with your provider. CBC CBC?? Pathology Tissue Request ()?? Type and Screen?? Primary Care Provider Kesha PRECIADO, Veronica Ayon? Advance Directive Health Care Proxy on File No Patient refuses to discuss Caregiver Relationship: Son Name of Caregiver: tere mendoza Patient has a Designated Caregiver: Yes Discharge Vitals Temperature: 98.3 DegF Height: 160 cm Pulse Rate: 62 bpm Weight: 91.9 kg Respiratory Rate: 18 br/min Body Mass Index:??35.9 kg/m2??Critical Systolic Blood Pressure:??142 mm Hg??High Body surface area: 2.02 Diastolic Blood Pressure: 64 mm Hg ?? Oxygen Saturation: 100 % ?? Studies Pending All studies ordered during this hospital stay have been completed unless listed below. Please discuss all pending results with your provider listed above in these instructions. ?? Pathology Tissue Request ()?? Type and Screen?? What to do next Instructions From Your Doctor Discharge Instructions: Laparoscopy ?? You were admitted on??11/21/2024 for a total laparoscopic hysterectomy, bilateral salpingectomy, right oophorectomy, and cystoscopy.?? Your surgery and immediate recovery were uncomplicated.?? You are meeting postoperative milestones and are being discharged home in good condition. ?? Expectations: - It is normal to feel tired and groggy for 24-48 hours after anesthesia.?? Give yourself time to rest. - It is common to have pain in your right shoulder after laparoscopy.?? This will resolve over the next 3-5 days as the insufflation air used during your surgery is reabsorbed. - It is normal to have light bleeding or spotting after pelvic surgery.?? If you have heavy bleeding, saturating one pad per hour or more, please call the office for evaluation. ?? Incision Care: - You have several incisions on your abdomen.?? All of them have been closed with suture, which will dissolve in the upcoming weeks.?? - Most of the incisions on your abdomen have been covered with surgical glue.?? This will come off spontaneously over the next 10-14 days, or we can remove it at your follow up appointment.?? Do not peel the glue off before your follow up visit. - There is a bandage over the incision in your belly button.?? This can be removed after 48 hours.?? You can replace it with a band-aid if you desire, but it is not necessary. - Keep your incisions clean and dry. It is okay??to gently wash the skin around your incisions withmild soap and water.?? While showering, allow soapy water to run over the incisions, but do not scrub.?? Rinse with clean water.?? Pat dry gently with a clean towel, do not wipe. - Don't pick, scratch, or pull at your incision.?? If a scab forms, allow it to dry and fall off inits own time. - Don???t use oils or creams on your incision for the first 2 weeks.?? This includes using topical antibiotic ointment. ?? Medications: 1. Take Ibuprofen 800mg and Acetaminophen 1000mg every 8 hours around the clock for the first 5 days after discharge.?? After 5 days, you can use these medications only as needed. 2. Take Oxycodone 5mg as needed every 6 hours.?? Try to stay ahead of your pain - it is harder to keep pain under control if you wait until it is severe to take medications.?? 3. Use Miralax daily while you are using narcotic pain medicine.?? Narcotic medication can be constipating and it is important to have regular, easy bowel movements during your recovery.? Diet: You may resume your normal diet at home after discharge.?? Stay well hydrated, as this will help you to have regular bowel movements.?? Avoid alcohol during your recovery.? Activity: - Rest as needed.?? It is normal to feel fatigued during your recovery.?? This will improve day by day as your body heals, but may be especially prominent in the first two weeks.?? - Shower every 1-2 days.?? For the first few days at home, have someone nearby in case you need assistance while showering.?? Do not scrub the incisions or wipe them dry??- allow soapy water to run over the incisions, rinse with clean water, and gently pat dry.?? - When coughing or sneezing, hold a pillow firmly against your??belly with both hands as needed. This is called splinting. Doing this helps protect your incision. It also decreases belly discomfort. - Walk at least 3 times per day.?? This will prevent blood clots from forming in your legs.?? Walk short distances as first.?? Increase your distance as tolerated.?? Do not jog or run until you have been seen for your postoperative visit. - Do not lift anything heavier than 10-15lbs in the first two weeks after surgery.?? Ask family andfriends to assist with chores as needed.? When to call your doctor: - Fever of 100.4??F ( 38??C) or higher - Chest pain or trouble breathing - Pain or tenderness in one or both legs - Increased pain, redness, swelling, bleeding, or foul-smelling drainage at the incision site - An incision that separates or comes apart - Pain or hardness in your belly that gets worse or isn???t eased by pain medicine - Nausea and vomiting that won???t go away - Diarrhea that lasts more than 3 days - Constipation or inability to pass gas for more than 3 days - Itchy, swollen skin, or skin rash ?? Contact Details: Your doctor is Dipti Arreaga MD - She is one of the doctors at [facility].?? Her office is located in [place], [place].?? - Her office phone number is - There is someone diamond grinder for her practice 24 hours per day, 7 days per week.?? If you have a non-urgent question or concern, please reach out during daytime hours (8am - 4pm).?? If you have an urgent concern, please call and leave a message with the answering service.?? The on-call doctor will return your call.?? - If you are having an emergency related to your surgery, you can present to the [facility] Unit ([facility]U), located on the ground floor of the [facility] at [facility].? Orders? 11/22/24 8:10:00 EDT after seen by Attending , ??Pending Lovenox and attending nael., ??256:55:00 EDT?? Scheduled Follow-Up Appointments 2024 2:00 PM EDT ?? 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 With: Dipti Arreaga MD Where: [facility] - Biomedical Engineering Supervisor [address] [place] [address]- Status: Pending You Need to Schedule the Following Appointments Follow Up with??As Needed Follow Up with??Veronica Rebolledo MD Where: [address] [place] [address] [address] [place] [address]- Discharge Medications YONATHAN FAUSTIN :1960 Visit Date:11/21/2024 Medications: Please continue your medications until treatment is completed or stopped by your provider. Medications not listed below should be discontinued. Discuss any questions related to medications with your provider. What How Much When Instructions Next Dose New Acetaminophen (acetaminophen 325 mg oral tablet) 975 Milligram Oral Every 6 hours Refills: 3 Pickup at [facility] #[id number] every 6 hours New Enoxaparin (enoxaparin 40 mg/ 0.4 mL injectable solution) 0.4 Milliliter Subcutaneous Injection Every 24 hours Duration: 9 Days Pickup at [facility] #[id number] 9am 11/23 New Oxycodone (oxyCODONE 5 mg oral tablet) 5 Milligram Oral Every 4 hours as needed for Pain , Severe Duration: 7 Days Pickup at [facility] #[id number] as needed New Polyethylene Glycol 3350 (MiraLax oral powder for reconstitution) 17 gram Oral Daily Refills: 1 dissolve in 4 to 8 oz of beverage ?? Pickup at [facility] #[id number] 9am 11/23 New Simethicone (simethicone 80 mg oral tablet, chewable) 80 Milligram Chew 5 times a day as needed for Other Duration: 7 Days For Gaseous Distention/ Discomfort ?? Pickup at [facility] #[id number] as needed Unchanged Albuterol (albuterol 2.5 mg/ 0.5 mL (0.5%) inhalation solution) 45 each, 0 Refill(s), USE 1 VIAL VIA NEBULIZER THREE TIMES DAILY ?? 3 X DAY Unchanged Albuterol (Ventolin HFA 108 mcg/ inh inhalation aerosol with adapter) 18 Gm, 0 Refill(s), INHAEL 2 PUFFS INTO THE LUNGS BY MOUTH FOUR TIMES DAILY NEEDED FOR ASTHMA ?? 4 X DAY Unchanged cobicist/ elvitegra/ emtricitab/ tenofov (Genvoya oral tablet) 30 each, 0 Refill(s), TAKE 1 TABLET BY MOUTH DAILY WITH BREAKFAST ?? 11/23 Unchanged Dicyclomine (dicyclomine 10 mg oral capsule) TAKE 1 CAPSULE BY MOUTH THREE TIMES DAILY NEEDED DIRECTED FOR ABDOMINAL CRAMPS ?? as needed Unchanged Fluticasone-Salmeterol (Advair Diskus 250 mcg-50 mcg inhalation powder) INHALE 2 PUFFS BY MOUTH TWICE DAILY ?? 911/22 Unchanged Loperamide (loperamide 2 mg oral capsule) 1 capsule Oral Every 4 hours as needed for for loose stool as needed Unchanged Meloxicam (meloxicam 15 mg oral tablet) 90 each, 0 Refill(s), TAKE 1 TABLET BY MOUTH EVERY DAY ?? EVERY OTHER DAY Unchanged Montelukast (montelukast 10 mg oral tablet) TAKE 1 TABLET BY MOUTH EVERY DAY ?? 11/23 Unchanged Pyridoxine (Vitamin B6 100 mg oral tablet) 90 each, 0 Refill(s), TAKE 1 TABLET BY MOUTH DAILY FOR KIDNEY STONES ?? 11/23 Unchanged Rosuvastatin (rosuvastatin 40 mg oral tablet) 90 each, 0 Refill(s), TAKE 1 TABLET BY MOUTH AT BEDTIME ?? 11/22 Unchanged umeclidinium (Incruse Ellipta 62.5 mcg/ inh inhalation powder) 30 each, 0 Refill(s), INHALE 1 PUFF BY MOUTH EVERY DAY ?? 11/23 Unchanged Zolpidem (zolpidem 10 mg oral tablet) 30 each, 0 Refill(s), TAKE 1 TABLET BY MOUTH EVERY DAY AT BEDTIME ?? bedtime Pharmacy Information [facility] #[id number]: [address], [place] [id number] [phone] Prescription Given During Visit Acetaminophen (acetaminophen 325 mg oral tablet) - 975 mg, By Mouth, Every 6 hours, # 55 tablet, 3 Refills, [facility] #[id number], [address] [place] [phone]?? Enoxaparin (enoxaparin 40 mg/0.4 mL injectable solution) - 0.4 mL = 40 mg, Subcutaneous Injection, Every 24 hours, # 3.6 mL, 0 Refills, [facility] #[id number], [address] [place] [address] [phone]?? Oxycodone (oxyCODONE 5 mg oral tablet) - 5 mg, By Mouth, Every 4 hours, # 10 tablet, 0 Refills, [facility] #[id number], [address] [place] [address] [phone]?? Polyethylene Glycol 3350 (MiraLax oral powder for reconstitution) - 17 Gm, By Mouth, Daily, # 238 Gm, 1 Refills, dissolve in 4 to 8 oz of beverage, [facility] #[id number], [address] [place] [address] [phone]?? Simethicone (simethicone 80 mg oral tablet, chewable) - 80 mg, Chew, 5 times a day, # 36 tablet, 0 Refills, For Gaseous Distention/Discomfort, [facility] #[id number], [address] [place] [address] [phone]?? Laboratory Results Below is a partial list of the most recent Laboratory test results done prior to this discharge. You may have had other tests and procedures not included in this list. Please discuss all test resultswith your provider. CBC (11/21/2024) ???WBC - 5.1 k/mm3???RBC - 4.44 m/mm3???Hgb - 13.1 Gm/dL???Hct - 39.5 %???MCV - 89.0 femtoliters???MCH - 29.5 pg???MCHC - 33.2 Gm/dL???Platelet Count - 178 k/mm3???RDW-SD - 45.7 femtoliters???MPV - 11.5 femtoliters???Nucleated RBC (Automated) - 0.0 #/100 WBC'S???Abs. NRBC - 0.0 k/mm3 You will be contacted within 72 hours with your results. Allergies (NKA means No Known Allergies) Shellfish Problems Active Problems??(7) Anemia?? Emphysema lung?? Fibromyalgia?? HIV disease?? HTN (hypertension)?? OA (osteoarthritis)?? Severe obesity (BMI 35.0-39.9) with comorbidity?? Education Materials Below is the list of Educational Leaflet Providered with your Discharge Instructions. Valuables and Belongings I fully understand and agree that [facility] accepts no responsibility for all my personal property including clothing, toilet articles, radios, jewelry, dentures, hearing aids, rings, money, or any other property that is in my possession or is brought to me after admission. I understand certain valuables may be placed in a hospital safe for a short period of time. I understand that the hospital is not liable for loss or damage due to accident, fire, or other natural occurrence while said property is in the safe. I accept full responsibility for any personal property that I keep with me, and will not hold the hospital responsible in case of loss or disappearance. I acknowledge that i have been encouraged to send valuables and belongings home. ? Other Discharge Information ? Case Management Discharge Plan?? Discharge Plan?? Discharge Level of Care at Discharge: Home/Fci/Foster Care Discharge Rx Program: Discharge Prescription Program ?? Pulmonary Rehab Status?? Pulmonary Rehab Discharge Status?? Respiratory Rate: 18 br/min ? Common Emergency Awareness Tips IS IT A STROKE? Act FAST and Check for these signs: FACE Does the face look uneven? ARM Does one arm drift down? SPEECH Does their speech sound strange? TIME Call at any sign of stroke ?? Heart Attack Signs Chest discomfort: Most heart attacks involve discomfort in the center of the chest and lasts more than a few minutes, or goes away and comes back. It can feel like uncomfortable pressure, squeezing, fullness or pain. Discomfort in upper body: Symptoms can include pain or discomfort in one or both arms, back, neck, jaw or stomach. Shortness of breath: With or without discomfort. Other signs: Breaking out in a cold sweat, nausea, or lightheaded. Remember, MINUTES DO MATTER. If you experience any of these heart attack warning signs, call to get immediate medical attention! ?? Smoking can increase your chances of developing chronic health problems and can cause harmful effects to other family members in your house. If you smoke, you are strongly encouraged to quit. Please call [facility] at [phone] or [phone] ([phone]) or log in to [email or web address] for referrals to smoking cessation programs. ?? 615 Suicide & Crisis Lifeline is available 09/11 if you or someone you know needs to find a reason to keep living. By calling 936 you'll be connected to a skilled, trained counselor at a crisis center in your area. INPATIENT DISCHARGE INSTRUCTIONS SIGNATURE PAGE RAMINEZEYONATHAN Location:[facility] Registration Date and Time:11/21/2024 05:32 EDT Primary Care Physician: Kesha PRECIADO, Veronica Ayon, Attending Physician: Whitley PRECIADO, Dipti, I YONATHAN FAUSTIN, have received the above patient education materials/instructions and have verbalized understanding. If ambulance or transport services are being used I further acknowledge being given a choice of service. ?? If you need to contact me, please call me at this number: . Patient/Mc Kay Stitcher Name: Patient/Mc Kay Stitcher Signature: Relationship to Patient: Witness Name/Signature: Date: Patient Care team information Care Team Personnel Name: Veronica Rebolledo MD Position: [facility] Outreach Member Role: PCP Address: [address] [place] [address] [address] Veronica Rebolledo MD [place], [place] [address] Telecom: Name: Clemencia Elliott RN Position: S RN Member Role: Primary Care Nurse Name: Brittaney Giron RN Position: S RN Member Role: Primary Care Nurse Name: Mayr Ruvalcaba RN Position: S RN Member Role: Primary Care Nurse Care Team Related Persons Name: EDILMA JIN Insurance Providers Guarantor name: [employer] [facility] Information #: 1 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
--- OUTSIDE RECORDS SUMMARY | 2024-11-25 23:59 | XMS_ITS | Continuity of Care Document ---
Author Organization [facility] Address [address] [place] [address]- Care Team Providers Care Hydraulic Miner Name Role Phone Kesha PRECIADO, Veronica Ayon Primary Care Physician [phone] Encounter [facility] Date(s): 10/26/24 - 11/25/[address] [address] Attending Physician: Mickey Paz Admitting Physician: AdmtrMickey Referring Physician: Admtr Ar8 Encounter Type: Triage Allergies, Adverse Reactions, Alerts Substance Criticality Severity Reaction Reaction Severity Status Shellfish Active Medications acetaminophen 325 mg oral tablet 975 mg, By Mouth, Every 6 hours, # 55 tablet, Refills 3, Tot. Refills 3, Maintenance, 11/22/24 6:50:00 AM EDT, Route to Pharmacy Electronically, [facility] #[id number], Partial fill upon patient request if the [...] AM EDT, 11/22/24 6:50:00 AM EDT, Injection, [facility] #[id number], Partial fill uponpatient request if the prescription [...] Maintenance, 11/22/24 6:50:00 AM EDT, REC Powder, [facility] #[id number], Partial fill upon patient request if theprescription [...] 6:49:00 AM EDT, Route to Pharmacy Electronically, [facility] #[id number], Partial fill upon patient request if the [...] 6:49:00 AM EDT, Route to Pharmacy Electronically, [facility] #[id number], Partial fill upon patient request if the [...] on: 11/03/24 Sex Sex Representation Female (finding) Patient Care team information Care Team Personnel Name: Veronica Rebolledo MD Position: [facility] Outreach Member Role: PCP Address: [address] [place] [address] [address] Veroncia Rebolledo [place], [place] [address] Telecom: Name: Clemencia Elliott RN Position: S RN Member Role: Primary Care Nurse Name: Brittaney Giron RN Position: [facility] RN Member Role: Primary Care Nurse Name: Mary Ruvalcaba RN Position: [facility] RN Member Role: Primary Care Nurse Care Team Related Persons Name: EDILMA JIN Insurance Providers Guarantor name: [facility] Information #: 1 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
--- NOTE | ~2024-11-26 | US_ITS ---
CLINICAL HISTORY: pain, swelling, recent surgery, concern for DVT Venous duplex ultrasound left lower extremity Comparison: None provided Findings: The visualized deep veins are fully compressible with normal Doppler color flow and spectral tracings. No popliteal cyst. IMPRESSION: 1. Negative for left lower extremity deep vein thrombosis. This document has been electronically signed by: Miranda Kay MD on 11/26/2024 13:22:16
--- NOTE | ~2024-11-26 | US_ITS ---
CLINICAL HISTORY: LLE pain Arterial duplex ultrasound left lower extremity Comparison: None provided Findings: Continuous, pulsatile flow with normal waveforms from common femoral through the posterior tibial and dorsalis pedis arteries. No focal stenosis, aneurysm or occlusion identified. Velocities are within normal range. IMPRESSION: 1. Normal left lower extremity arterial duplex. This document has been electronically signed by: Jayy Beverly MD on 11/26/2024 15:33:08
--- NOTE | ~2024-11-26 | CT_ITS ---
CLINICAL HISTORY: LLQ pain s p salpingectomy oophorectomy CT abdomen and pelvis with contrast Comparison: CT/NV/SR - CT ABDOMEN PELVIS WITHOUT IV CONTRAST - 05/25/24 11:42 EST Findings: No consolidation or effusion. There is increased, mild intrahepatic and moderate extrahepatic biliary ductal dilatation. Common hepatic duct measures 18 mm. Common bile duct measures 11 mm. No evidence of choledocholithiasis by CT. New mild pancreatic ductal dilatation is present, measuring 5 mm within the neck. Cholecystectomy clips are present. Bilateral renal cysts. Nonobstructing 3 mm and 2 mm inferior pole left renal calculi. Solid organs otherwise appear normally. No bowel obstruction, pneumoperitoneum, or pneumatosis. Small amount of free pelvic fluid. Normal appendix. No acute fracture. IMPRESSION: 1. Small amount of free pelvic fluid, compatible with postsurgical sequelae. 2. New biliary and pancreatic ductal dilatation. This could be further assessed with ERCP, to assess for underlying neoplasm. 3. Nonobstructing left renal calculi. This document has been electronically signed by: Jayy Beverly MD on 11/26/2024 18:35:01
--- NOTE | ~2024-11-26 | CT_ITS ---
CLINICAL HISTORY: L groin pain s p surgery CT angiography abdomen and pelvis with bilateral lower extremity runoff using IV contrast. 3-D post processing. Comparison: CT/SR - CT ABDOMEN PELVIS W IV CON - 11/26/24 16:[address] - CT ANGIO ABD AORTA RUNOFF - 11/26/24 16:50 EDT US - US ARTERIAL DUPLEX LE LT - 11/26/24 14:26 EDT Findings: The aorta is widely patent with no aneurysm or dissection. Celiac and superior mesenteric arteries are patent. Inferior mesenteric artery is patent. There is a single left renal artery and 2 right renal arteries. The dominant bilateral renal arteries demonstrate a possible. Configuration. Right lower extremity: Common, internal, and external iliac arteries are patent. Common, profunda, and superficial femoral arteries are patent. Above and below-knee popliteal artery is patent. Anterior tibial artery, tibioperoneal trunk, peroneal and posterior tibial arteries are patent. Left lower extremity: Common, internal, and external iliac arteries are patent. Common, profunda, and superficial femoral arteries are patent. Above and below-knee popliteal artery is patent. Anterior tibial artery, tibioperoneal trunk, peroneal and posterior tibial arteries are patent. The lung bases are clear. Gallbladder is surgically absent. Intrahepatic and extrahepatic biliary ductal dilatation as well as pancreatic ductal dilatation present, as seen by same day CT. Nonobstructing 2 mm and 3 mm left inferior pole renal calculi. Bilateral renal cysts. Solid organs otherwise within normal limits. No bowel obstruction, pneumoperitoneum, or pneumatosis. Small amount of free pelvic fluid. Normal appendix. No masses or fluid collections in the lower extremities. The bones are intact. IMPRESSION: 1. No evidence of arterial insufficiency to the bilateral lower extremities. 2. Findings suggestive of fibromuscular dysplasia involving the bilateral renal arteries. This could be further assessed with conventional angiography, if clinically indicated. 3. Biliary and pancreatic ductal dilatation which could be further assessed with ERCP to assess for underlying neoplasm. 4. Nonobstructing left renal calculi. 5. Free pelvic fluid, consistent with postsurgical sequelae. This document has been electronically signed by: Jayy Beverly MD on 11/26/2024 18:39:36
[2024-11-26 11:55] VITALS: BP 107/67; PULSE 76; RESP 16; TEMP 36.7; O2SAT 96; BMI 31.1
--- NOTE | 2024-11-26 11:57 | ED.GENADULT ---
HPI - General Adult General Chief complaint: Extremity Problem Stated complaint: pain on Left leg, back pain Time Seen by Provider: 11/26/24 12:43 Source: patient Mode of arrival: ambulatory Limitations: no limitations History of Present Illness ED Provider: GIRISH Washington HPI narrative: This is a 64-year-old female history of obesity, osteoarthritis, hypertension, HIV, fibromyalgia, emphysema, anemia that presents with left lower extremity pain after having a surgical procedure done on 11/21/2024 at [facility]. Reports pain is constant, severe, 10/10, in his interfering with the way she is walking. Reports pain is felt throughout her entire leg. She also reports her left leg appears much more swollen than her right leg. Denies numbness, tingling, loss of sensation to leg, fevers, chills, chest pain, shortness of breath, history of DVT or PE, trauma. Related Data Home Medications ?Medication ?Instructions ?Recorded ?Confirmed elviteg 150 mg-cob 150 mg-emtricit 1 tab PO DAILY 07/17/23 09/20/24 200 mg-tenofo alafenam 10 mg tablet (Genvoya) ketotifen fumarate 0.025 % (0.035 2 drp ophthalmic (eye) DAILY 11/19/23 09/20/24 %) eye drops rosuvastatin 40 mg tablet 40 mg PO BEDTIME 11/19/23 09/20/24 losartan 100 mg tablet 100 mg PO DAILY 04/05/24 09/20/24 triamcinolone acetonide 0.5 % 1 appl topical BID PRN Rash 04/05/24 09/20/24 topical cream linaclotide 145 mcg capsule 145 mcg PO DAILY 04/20/24 09/20/24 (Linzess) ondansetron 4 mg disintegrating 4 mg PO Q6H PRN nausea and vomiting 04/20/24 09/20/24 tablet albuterol sulfate 2.5 mg/0.5 mL 2.5 mg inhalation TID PRN 05/24/24 09/20/24 solution for nebulization Shortness Of Breath Or Wheezing albuterol sulfate 90 mcg/actuation 2 puff inhalation QID PRN asthma 05/24/24 09/20/24 aerosol inhaler (Ventolin HFA) diphenhydramine HCl 25 mg capsule 25 mg PO BEDTIME 05/24/24 09/20/24 Previous Rx's ?Medication ?Instructions ?Recorded furosemide 20 mg tablet 20 mg PO DAILY 30 days #30 tabs 07/19/23 meclizine 12.5 mg tablet 12.5 mg PO TID PRN Vertigo #12 tabs 07/19/23 meloxicam 15 mg tablet 15 mg PO DAILY #30 tabs 07/19/23 sertraline 100 mg tablet 100 mg PO DAILY PRN mood #30 tabs 07/19/23 zolpidem 10 mg tablet 10 mg PO BEDTIME #30 tabs 07/19/23 loratadine 10 mg tablet 10 mg PO DAILY #30 tabs 07/20/23 naproxen 500 mg tablet 500 mg PO BID PRN pain 7 days #14 07/28/23 tabs simethicone 180 mg capsule 180 mg PO QID 30 days #120 caps 11/19/23 hydrocortisone 1 % topical cream 1 appl topical BID PRN itching 12/06/23 (Cortisone (hydrocortisone)) #28.35 grams pyridoxine (vitamin B6) 100 mg 100 mg PO DAILY kidney stones 90 12/28/23 tablet days #90 tabs umeclidinium 62.5 mcg/actuation 1 inh inhalation DAILY #1 ea 02/15/24 blister powder for inhalation (Incruse Ellipta) montserrat (Ultra-Light Rollator [facility] [place] #1 ea 04/21/24 omeprazole 20 mg capsule,delayed 20 mg PO DAILY@0630 #90 caps 05/31/24 release fluticasone furoate 200 1 ea PO DAILY #60 ea 10/25/24 mcg-vilanterol 25 mcg/dose inhalation powder (Breo Ellipta) acetaminophen 500 mg capsule 1,000 mg (2 x 500 mg) PO .q8 PRN 11/26/24 fever or pain #30 caps diazepam 5 mg tablet (Valium) 5 mg PO BID PRN muscle spasm #10 11/26/24 tabs ibuprofen 600 mg tablet 600 mg PO Q8H PRN fever or pain 11/26/24 #30 tabs oxycodone 5 mg tablet 5 mg PO BID PRN pain #10 tabs 11/26/24 Allergies Allergy/AdvReac Type Severity Reaction Status Date / Time shellfish derived Allergy Intermediate HIVES, N/V Verified 11/26/24 12:00 Review of Systems Review of Systems: Yes all other systems are reviewed and are negative [facility] Past Medical History Attestation statement: The following information was validated with the patient. 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 HIV (human immunodeficiency virus infection) History of blood transfusion Anemia Hx of renal calculi Difficulty swallowing GERD (gastroesophageal reflux disease) Hepatitis Depression Sleep apnea Asthma Elevated cholesterol HTN (hypertension) Surgical History Hx of colonoscopy Hx of cystoscopy Hx of dilation and curettage Hx of section Hx of reduction mammoplasty Hx of tubal ligation Hx of cholecystectomy Family History Family History Mother Breast cancer Father Heart problem Sister Bone cancer Family/Other Diabetes Social History Social History Household Members: Family Housing: Apartment Housing Other:: lives alone, son staying with her Are you a primary director of healthcare systems to a significant other at home: No Do you presently have visiting nurse or other home services: No Unable to assess alcohol history related to: Unknown Alcohol intake: current Alcohol intake frequency: holidays/special occasions only Alcohol type: wine Comment: low falls risk Patient Tobacco Use Status: Former Tobacco user Tobacco use type: Cigarette Cigarette Packs Per Day: 2 Cigarettes Per Day: 40.0 Years Smoked: 40 Smoked in Last 30 Days: No e-Cigarette/Vaping Use: Never Used Second Hand Smoke Exposure: No Use of substances other than those prescribed or required for medical reasons: No Substance Use Type: Former Substance User Advance Directives: No Advance Directives Information Provided: Yes Do you have a plan to hurt others: No Plan service: No Sexual orientation: Straight/Heterosexual Gender identity: Female Physical Exam ED Exam Exam: Appearance: Alert.? Oriented X3.? No acute distress.? Head: Normocephalic, atraumatic, no step-offs or deformities Eyes: Pupils equal, round and reactive to light.? ENT: Pharynx normal.? Neck: Normal inspection.? Neck supple.? CVS: Normal heart rate and rhythm.? Pulses normal.? Respiratory: No respiratory distress.? Breath sounds normal.? Abdomen: Soft and nontender.? Skin: Skin warm and dry.? Normal skin color.? Normal skin turgor.?+ small 4 abdominla laproscopic incision sites, clean dry and intact. Extremities: No lower extremity edema.? No calf ttp. 5/5 strength to bilateral upper and lower extremities + 2+ dp,at,pt pulses equal and b/l. Normal distal sensation. Negative brien. Soft LE compartments Back: No midline tenderness, no C-spine tenderness, full range of motion, no CVA tenderness bilaterally Neuro: Oriented X 3.? No motor deficit.? No sensory deficit. CN 2-12 intact Vital Signs: Vital Signs - 24 hr 11/26/24 11:55 11/26/24 16:13 11/26/24 18:32 Temperature 98.0 F 97.4 F 98.1 F Pulse Rate 76 67 55 Respiratory Rate 16 18 16 Blood Pressure 107/67 101/40 L 115/40 L Pulse Oximetry 96 97 98 Oxygen Delivery Method Room Air Room Air 11/26/24 20:24 Temperature 98.1 F Pulse Rate 62 Respiratory Rate 16 Blood Pressure 126/51 L Pulse Oximetry 95 Oxygen Delivery Method Room Air BMI result Body Mass Index 31.1 vss Course Course Course Narrative: Rapid medical examination performed in triage by Hannah Jones PA-C. Patient is a 64 year old assigned female at presenting to the emergency department with left lower leg pain. Patient states she had a recent ovarian removal surgery at [facility] and now her left lower leg is swelling and painful. Detailed physical exam and review of systems are deferred to the manager primary care. Imaging ordered. Patient placed back in the waiting room pending room availability and results. Reevaluation(s) Reevaluation #1: Upon chart review at [facility] patient had a total laparoscopic hysterectomy, bilateral salpingo oophorectomy due to postmenopausal bleeding and pelvic pain. This was done on 11/21/2024. Time: 12:49 Reevaluation #2: Venous duplex negative for DVT. Patient in significant discomfort. Morphine ordered. Patient's CPK with elevation, 277. Patient pain prompts further investigation of left lower extremity. At this time arterial scan ordered. Time: 14:05 Reevaluation #3: Arterial occlusion negative. Patient now complaining significant LLQ pain. and L groin pain. Time: 16:03 Additional Reevaluation(s): 1614 Patient still in severe pain, will proceed to order abd and pelvis ct w/ contrast and angio abd aorta w/ runoff to ensure no hematoma / seroma w/ nerve impingement. left groin / inguinal region w/ slight induration when compared to the right 1820 Sign out to Kareem BAKER Consultations Consultation #1: 8:43 PM 11/26/2024 (Joselin STOUT): The patient was signed out to this provider at shift change. In summary the patient is a 64-year-old female 4 days status post total hysterectomy with oophorectomy performed at [facility]. The patient reports since the day after her surgery she has been experiencing recurrent intermittent spasm of the left leg with associated sharp pain in the medial thigh radiating down the leg and also up into her back. The patient denies any surgical spinal history. The patient's vital signs were stable throughout ED course, laboratory evaluation showed no obvious abnormalities. The patient underwent venous and arterial duplex which were unremarkable. Patient was treated with IV fluids due to mildly bumped creatinine, and multiple rounds of IV opioids for recurrent episodes of spasmodic pain. The patient was signed out to this provider pending results of CTA abdomen and pelvis with lower extremity runoff. The patient's CTA has resulted and shows fluid in the pelvis consistent with postsurgical changes, no evidence of abscess, arterial occlusion, or other acute pathology. At time of sign-out the patient was treated with additional IV pain medication and also antispasmodics with Valium. The patient has now been reassessed and reports symptoms improved significantly with antispasmodics compared to opioids. Patient's presentation is likely secondary to muscle spasm from mild postoperative dehydration and possibly complicated by free fluid in the pelvis. The patient's magnesium is 2.1. At this time the patient is well-appearing, nontoxic, afebrile, moving around well on the exam stretcher. Repeat exam of the left lower extremity demonstrates distal CSM intact, 2+ DP/PT pulses, full nonpainful range of motion, and strength 5/5. The patient appears appropriate for discharge with outpatient follow up with her surgeon. Care plan discussed with patient and patient feels safe being discharged home with antispasmodics and a short refill of the oxycodone prescribed by her surgeon. Patient educated on reasons to return to the ED. Medications Administered Discontinued Medications Generic Name Dose Route Start Last Admin Trade Name Angelina PRN Reason Stop Dose Admin Diazepam 2 mg 11/26/24 18:26 11/26/24 18:31 Diazepam 2 Mg Tablet PO 11/26/24 18:27 2 mg ONCE ONE Administration Hydromorphone HCl 0.5 mg 11/26/24 14:30 11/26/24 14:40 Hydromorphone Hcl 0.5 Mg/0.5 Ml Syringe IVPUSH 11/26/24 14:31 0.5 mg ONCE ONE Administration Protocol Hydromorphone HCl 0.5 mg 11/26/24 16:16 11/26/24 16:23 Hydromorphone Hcl 0.5 Mg/0.5 Ml Syringe IVPUSH 11/26/24 16:17 0.5 mg ONCE ONE Administration Protocol Hydromorphone HCl 1 mg 11/26/24 18:25 11/26/24 18:31 Hydromorphone Hcl 1 Mg/Ml Syringe IVPUSH 11/26/24 18:26 1 mg ONCE ONE Administration Protocol Sodium Chloride 1,000 mls @ 999 mls/hr 11/26/24 13:30 11/26/24 14:43 Ns IV 11/26/24 14:30 Infused .Q1H1M MANJU Infusion Sodium Chloride 1,000 mls @ 999 mls/hr 11/26/24 13:30 11/26/24 14:43 Ns IV 11/26/24 14:30 Infused .Q1H1M MANJU Infusion Iohexol 100 ml 11/26/24 17:29 11/26/24 17:29 Iohexol 350 Mg/Ml 100 Ml Infus..Btl IV 11/26/24 17:30 100 ml ONCE ONE Administration Morphine Sulfate 4 mg 11/26/24 13:50 11/26/24 13:53 Morphine Sulfate 4 Mg/Ml Cartridge IVPUSH 11/26/24 13:51 4 mg ONCE ONE Administration Protocol Medical Decision Making Medical Decision Making [facility] Narrative: 1247 64-year-old female presents with left lower extremity pain, swelling ongoing for the past few days worsening. Recent surgical procedure on 11/21 at [facility] Physical exam left lower extremity throughout slightly more swollen than the right. 2+ dorsalis pedis, anterior tibialis posterior tibialis pulses equal bilateral. Normal distal sensation. No footdrop. No skin discoloration. History and physical exam concerning for rhabdomyolysis versus DVT. Unlikely arterial occlusion or acute threat to limb. Thrombophlebitis possible. No signs of compartment syndrome Plan labs, ultrasound. Differential Diagnosis Differential Diagnoses: The differential diagnosis associated with the presentation includes (History and physical exam concerning for rhabdomyolysis versus DVT. Unlikely arterial occlusion or acute threat to limb. Thrombophlebitis possible.) Admission/Observation Consideration of admission/observation: Escalation of care including admission/observation considered (possible ) Lab Data MDM Lab Attestation statement: I reviewed the patient's lab results. 11/26/24 13:02 11/26/24 13:02 Labs: Lab Results 11/26/24 Range/Units 13:02 WBC 8.4 (4.8-10.8) X10*3/uL RBC 4.21 (4.20-5.50) X10*6/uL Hgb 12.6 (12.0-16.0) g/dl Hct 37.1 (37.0-47.0) % MCV 88.1 (80.0-98.0) fL MCH 29.9 (27.0-33.0) pg MCHC 34.0 (31.0-35.0) g/dl RDW 14.0 (11.0-16.0) % Plt Count 187 (160-400) X10*3/uL MPV 11.0 (9.4-12.3) fL Immature Gran % (Auto) 0.4 (0.0-0.4) % Neut % (Auto) 75.0 H (45-73) % Lymph % (Auto) 16.5 L (20-40) % [place] % (Auto) 6.7 (2-11) % Eos % (Auto) 1.2 (0-4) % Baso % (Auto) 0.2 (0-2) % Lymph # (Auto) 1.4 (1.2-4.9) X10*3/uL [place] # (Auto) 0.6 (0.1-1.2) X10*3/uL Eos # (Auto) 0.1 (0.0-0.4) X10*3/uL Baso # (Auto) 0.0 (0.0-0.2) X10*3/uL Abs Immat Gran (auto) 0.03 (0.00-0.03) X10*3/uL Absolute Neuts (auto) 6.3 (2.0-8.3) x10*3/uL Absolute Nucleated RBC 0.000 (0.0-0.012) X10*3/uL Nucleated RBC % (auto) 0.0 (0.0-0.2) /100WBC PT 11.9 (10.9-12.4) SEC INR 1.0 (0.9-1.1) Sodium 140 (135-145) mmol/L Potassium 3.5 (3.3-5.1) mmol/L Chloride 102 (96-108) mmol/L Carbon Dioxide 27 (22-29) mmol/L Anion Gap 15 (12-20) BUN 33 H (9-16) mg/dL Creatinine 1.76 H (0.5-1.4) mg/dL Estim Creat Clear Calc 36.4 Estimated GFR 29 Random Glucose 104 (60-115) mg/dL Calcium 9.7 (8.4-10.2) mg/dL Magnesium 2.1 (1.6-2.6) mg/dL Total Bilirubin 0.7 (0.0-1.0) mg/dL AST 28 (5-31) U/L ALT 25 (0-31) U/L Alkaline Phosphatase 72 (39-117) U/L Total Creatine Kinase 277 H (26-140) U/L Total Protein 7.9 (6.5-8.0) g/dL Albumin 4.4 (3.5-5.0) g/dL Independent Interpretation I performed an independent interpretation of an: Ultrasound Radiology Impression Discussion of test interpretation with radiology: I have reviewed the radiologist's reading. External Record Review External record reviewed: Inpatient record, Office record, Outpatient record, Prior outpatient labs, Prior outpatient radiology, Primary care record and Outside ED record Critical Care Time Critical Care Time Critical Care Time: Yes Total Critical Care Time: 45 Attestation: I attest to this time spent taking care of the patient, obtaining history, physical, reviewing labs, imaging, treatment of patients condition +/- specialist/hospitalist consult +/- procedure Discharge Plan Discharge Clinical Impression: Acute pain of left lower extremity, Abdominal pain, Muscle spasm of left lower extremity Patient Disposition: Home, Self-Care Instructions: Leg Cramps (ED), Muscle Spasm (ED), Pelvic Pain (ED) Additional Instructions: Thank you for choosing [facility]'s Emergency Department for your care today. Thankfully your laboratory evaluation,, ultrasounds, and CTs today show no evidence of any acute infection, bleeding, blood clot, or other dangerous cause for your postoperative pain. At this time there is no indication for admission to the hospital or continued ED observation, and it is safe to discharge you home. Your pain appears to have responded well to antispasmodic (muscle relaxer) medications as opposed to narcotics. You should take alternating (staggered) doses of ibuprofen 600mg and Tylenol 1000mg every 4 hours as needed for any additional pain. Please stay well hydrated and get plenty of rest. As a part of your care plan, you have also been prescribed a refill of your previously prescribed opiate based pain medication, oxycodone. Please take this medication only for severe pain that is not relieved by ibuprofen and/or Tylenol. Opiate based medications have a high risk of unintentional addiction and abuse. Take this medication only as directed and only if absolutely necessary. This medicine can make you drowsy, you are not allowed to drive, operate heavy machinery, or be the sole care provider for children while taking this medication. As a part of your care plan, you have also been prescribed a muscle relaxer called Valium. Please take this medication only for severe spasm that is not relieved by ibuprofen and/or Tylenol. Muscle relaxer medications can carry high risk of unintentional addiction and abuse. Take this medication only as directed and only if absolutely necessary. This medicine can make you drowsy, you are not allowed to drive, operate heavy machinery, or be the sole care provider for children while taking this medication. Please follow up with your surgeon as well as your primary care physician for re-evaluation, additional management of your symptoms, and continued preventative care. If you do not have a primary care physician, please call the [facility] at [phone] to establish a new primary care physician. While waiting to establish your new primary care physician, you can call our Walk[facility] at [phone] for non-emergency needs. Please return to the emergency department if you develop a severe or sudden change in your symptoms, a fever over 100.4 that does not improve with Tylenol or Ibuprofen, recurrent vomiting, or any other new or worsening symptoms or concerns. Prescriptions: New ibuprofen 600 mg tablet 600 mg PO Q8H PRN (Reason: fever or pain) Qty: 30 0RF acetaminophen 500 mg capsule 1,000 mg PO .q8 PRN (Reason: fever or pain) Qty: 30 0RF diazepam [Valium] 5 mg tablet 5 mg PO BID PRN (Reason: muscle spasm) Qty: 10 0RF oxycodone 5 mg tablet 5 mg PO BID PRN (Reason: pain) Qty: 10 0RF Rx Instructions: Partial Fill upon patient request. No Action omeprazole 20 mg capsule,delayed release(DR/EC) 20 mg PO DAILY@0630 Qty: 90 2RF fluticasone furoate-vilanterol [Breo Ellipta] 200-25 mcg/dose blister with device 1 ea PO DAILY Qty: 60 0RF hydrocortisone [Cortisone (hydrocortisone)] 1 % cream 1 appl topical BID PRN (Reason: itching) Qty: 28.35 0RF albuterol sulfate [Ventolin HFA] 90 mcg/actuation HFA aerosol inhaler 2 puff INHALATION QID PRN (Reason: asthma) albuterol sulfate 2.5 mg/0.5 mL solution for nebulization 2.5 mg inhalation TID PRN (Reason: Shortness Of Breath Or Wheezing) diphenhydramine HCl 25 mg capsule 25 mg PO BEDTIME Genvoya [phone] mg tablet 1 tab PO DAILY Rx Instructions: with breakfast meloxicam 15 mg tablet 15 mg PO DAILY Qty: 30 0RF sertraline 100 mg tablet 100 mg PO DAILY PRN (Reason: mood) Qty: 30 0RF meclizine 12.5 mg tablet 12.5 mg PO TID PRN (Reason: Vertigo) Qty: 12 0RF furosemide 20 mg tablet 20 mg PO DAILY 30 Days Qty: 30 6RF zolpidem 10 mg tablet 10 mg PO BEDTIME Qty: 30 0RF loratadine 10 mg Tablet 10 mg PO DAILY Qty: 30 0RF naproxen 500 mg tablet 500 mg PO BID PRN (Reason: pain) 7 Days Qty: 14 0RF losartan 100 mg tablet 100 mg PO DAILY triamcinolone acetonide 0.5 % cream 1 appl topical BID PRN (Reason: Rash) ondansetron 4 mg tablet,disintegrating 4 mg PO Q6H PRN (Reason: nausea and vomiting) Linzess 145 mcg capsule 145 mcg PO DAILY (DME) Ultra-Light Rollator Misc See Rx Instructions .Route Qty: 1 0RF Rx Instructions: As directed pyridoxine (vitamin B6) 100 mg tablet 100 mg PO DAILY 90 Days Qty: 90 3RF Incruse Ellipta 62.5 mcg/actuation blister with device 1 inh inhalation DAILY Qty: 1 6RF rosuvastatin 40 mg tablet 40 mg PO BEDTIME ketotifen fumarate 0.025 % (0.035 %) drops 2 drp ophthalmic (eye) DAILY simethicone 180 mg capsule 180 mg PO QID 30 Days Qty: 120 6RF Rx Instructions: after meals Referrals: Veronica Rebolledo MD [Primary Care Provider, Internal Medicine] Clinical Impression: Acute pain of left lower extremity; Muscle spasm of left lower extremity Print Language: Ukrainian
--- OUTSIDE RECORDS SUMMARY | 2024-11-26 13:03 | XMS_ITS | Clinical Summary ---
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 4 Active Genvoya [phone] MG tablet Take 1 tablet by mouth [...] 100 mg by mouth Once per day. Active zolpidem (Ambien) 10 MG tablet Take 10 mg by mouth at bedtime. 4 Active Immunizations Immunization Administration Dates Next Due Hep [...] - Risk 3-dose series) 2021 COVID-19 Vaccine ( - season) 2023 05/19/2021, 08/14/2020, 07/24/2020 Dental [...] [facility] [place] [address] [place] [address]
--- OUTSIDE RECORDS SUMMARY | 2024-11-26 13:03 | XMS_ITS | Patient Health Record ---
Author Organization Alec Strickland III, MD Address [address] [address] Care Team Providers Care Checker Name Role Phone Kesha PRECIADO, [facility] Primary Care Provider Alec Beckwith Unavailable [phone] Allergies Allergen (clinical drug ingredient) Drug/Non Drug [...] Problem Status W/U Status Risk Notes Problem 8167394 Former smoker (Z87.891) Active confirmed She has a plan for prevention of relapse in times of stress. I have counseled her about ongoing smoking cessation. Problem 84176143 Hyperlipidemia (E78.5) Active confirmed A fasting lipid profile is not available and has been requested from primary care. Problem 293330568 Asthma (J45.909) Active confirmed It is pollen season and she has occasional wheezing. This is controlled with her medications. Problem 08145613 Hepatitis C (B19.20) Active confirmed There is no sig n at this time of ongoing active infection. Problem 734628166 Anemia (D64.9) Active confirmed Her hematocrit is 34% with a normal mean cell volume. This is likely the anemia of chronic disease and will be observed. Problem 617411150 Thrombocytopenia (D69.6) Active confirmed Her platelet count is now normal at 174,000. The value will be observed. Problem 19177562 Human immunodeficiency virus [HIV] disease (B20) Active confirmed She has not developed any recent infections or HIV related neoplasms. She is compliant with the recommendations of infectious disease. The viral load is well controlled. Problem 695530864 Lobular carcinom a in situ of right breast (D05.01) Active confirmed There is no sign of recurrent disease. She is due for mammography and a study has been ordered. 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 It was thought to be reactive. Problem 36705897 Essential hypertension (I10) Active confirmed Her blood pressure has been normal. She was referred back to primary care for measurement. Problem 87891051 Depressive disorder, not elsewhere classified (F32.9) Active confirmed Her depre ssion is stable and well controlled and she is compliant with her medication. Problem 439974118 Obesity (BMI 35.0-39.9 without comorbidity) (E66.01) Active confirmed Her body mass index is 29 and I have recommended regular exercise and weight reduction through a diet restricted in calories fat in sodium. She has lost six pounds since her last visit. Problem 71145839 Sleep apnea (G47.30) Active confirmed She has been treated for this and denies any daytime somnolence. No additional therapy is necessary. She says she has been compliant with treatment Problem 700936193 H/O carpal tunne l syndrome (Z86.69) Active confirmed She has mi ld symptoms of neuropathy in her hands but these are mild and she is conducting all the activities of daily life without impairment. Problem 405825737 Chronic kidney disease, stage I (N18.1) Active confirmed Her most recent available renal functions are normal. These will be followed carefully. On June 08, 2021. The BUN was 18, creatinine was normal. Problem 75258258 Hepatitis B (B19.10) Active confirmed There is [...] Date [place] [address] [place], [place] [id number] America Bower Self - patient is the [...]
[2024-11-26 13:07] LABS: MANUAL DIFF FLAG NO
[2024-11-26 13:11] LABS: Hematocrit 37.1 % (37.0-47.0); Hemoglobin 12.6 g/dl (12.0-16.0); Imm Gran Abs Auto 0.03 X10*3/uL (0.00-0.03); Imm Gran Pct Auto 0.4 % (0.0-0.4); Lymphocytes Absolute Auto 1.4 X10*3/uL (1.2-4.9); Mean Corpuscular HGB Conc 34.0 g/dl (31.0-35.0); Mean Corpuscular Hemoglobin 29.9 pg (27.0-33.0); Mean Corpuscular Volume 88.1 fL (80.0-98.0); NRBC Abs Auto 0.000 X10*3/uL (0.0-0.012); NRBC Pct Auto 0.0 /100WBC (0.0-0.2); Platelet Count 187 X10*3/uL (160-400); Red Blood Count 4.21 X10*6/uL (4.20-5.50); White Blood Count 8.4 X10*3/uL (4.8-10.8)
[2024-11-26 13:19] LABS: INTERNATIONAL NORM RATIO 1.0 (0.9-1.1); Prothrombin Time 11.9 SEC (10.9-12.4)
[2024-11-26 13:24] LABS: Alanine Aminotransferase 25 U/L (0-31); Albumin Level 4.4 g/dL (3.5-5.0); Alkaline Phosphatase 72 U/L (39-117); Anion Gap 15 (12-20); Aspartate Amino Transferase 28 U/L (5-31); Blood Urea Nitrogen 33 mg/dL (9-16); Calcium 9.7 mg/dL (8.4-10.2); Carbon Dioxide 27 mmol/L (22-29); Chloride 102 mmol/L (96-108); Creatinine Clr Calc Pharmacy 36.4; Estimated Glomerular Filt Rate 29; Potassium 3.5 mmol/L (3.3-5.1); Sodium 140 mmol/L (135-145); Total Protein 7.9 g/dL (6.5-8.0)
--- NOTE | 2024-11-26 13:56 | PC.NURSE ---
patient medicated with morphine per order
--- NOTE | 2024-11-26 15:03 | PC.NURSE ---
pts ivf continue to run slowly
--- NOTE | 2024-11-26 16:06 | PC.NURSE ---
patient rang to use bathroom, this nurse unhooked patient from IVF which continue to run slowly, she ambulated with this nurse to the bathroom, pt stated her pain is no longer associated in her left leg but she has alot of pain in her left lower abdominal area. upon bring pt back to room, this nurse examined pt abdomen, she had 4 trochar sites- 3 with bandaids 1 with steri strips. upon palpation RLQ was soft and non tender, LLQ was tender and felt hard in that area. provider was notified of this finding.
[2024-11-26 16:13] VITALS: BP 101/40; PULSE 67; RESP 18; TEMP 36.3; O2SAT 97
[2024-11-26 16:19] LABS: Magnesium 2.1 mg/dL (1.6-2.6)
--- NOTE | 2024-11-26 16:24 | PC.NURSE ---
pt medicated for pain
[2024-11-26] MEDS: iohexoL 350 MG/ML 100 ML INFUS..BTL IV (17:29)
[2024-11-26 18:32] VITALS: BP 115/40; PULSE 55; RESP 16; TEMP 36.7; O2SAT 98
[2024-11-26 20:24] VITALS: BP 126/51; PULSE 62; RESP 16; TEMP 36.7; O2SAT 95
[2024-11-26 22:39] VITALS: BP 112/57; PULSE 53; RESP 16; TEMP 36.7; O2SAT 100
== END 2024-11-26 22:40 | disposition home or self-care (01) ==
PROVIDERS: Physician Assistant; Emergency Provider Emergency Medicine; PCP Internal Medicine
DX: M79.662 Pain in left lower leg (principal); M62.831 Muscle spasm of calf; R60.0 Localized edema; R10.2 Pelvic and perineal pain; M54.50 Low back pain, unspecified; R11.0 Nausea; Z87.891 Personal history of nicotine dependence; Z79.899 Other long term (current) drug therapy
CPT/HCPCS: 36415; 74177; 75635; 80053; 82550; 83735; 85025; 85610; 93926; 93971; 96361; 96374; 96375; 96376; 99284; J1171; J2270; Q9967

== ENCOUNTER → 2024-11-26 11:58 | Outpatient (BNV) | payer MEDICAID, SELFPAY | PROVIDERS: Emergency Provider Emergency Medicine; PCP Internal Medicine; Visit Provider Radiology Diagnostic Radiology | DX: K83.1 Obstruction of bile duct (principal); N20.0 Calculus of kidney; M79.605 Pain in left leg | CPT/HCPCS: 74177; 75635; 93926; 93971 ==

== ENCOUNTER 2024-11-28 13:31 | Outpatient (REF) | payer MEDICAID, SELFPAY ==
--- NOTE | ~2024-11-28 | US_ITS ---
CLINICAL HISTORY: N39.0 - Urinary tract infection, site not specified US of kidneys Comparison: US/SR - US RENAL BI - 12/06/23 09:32 EDT Findings: Right kidney is normal in size, echogenicity and morphology, 9.8 cm in length. 1 cm simple cyst at the upper interpolar region, stable. No calculus or hydronephrosis. Left kidney is normal in size, echogenicity and morphology, 10.5 cm in length. Simple cyst 6.0 x 4.3 x 4.6 cm in the upper pole, previously 5.3 x 4.2 x 6.3 cm, previously seen fine septation is not visualized. No calculus or hydronephrosis. Limited color Doppler demonstrates unremarkable bilateral blood flow. Impression: Bilateral simple renal cysts. This document has been electronically signed by: Dalila Bach MD on 11/28/2024 14:39:09
--- OUTSIDE RECORDS SUMMARY | 2024-11-28 14:23 | XMS_ITS | Patient Health Record ---
Author Organization Alec Strickland III, MD Address [address] [place] [address] Care Team Providers Care Estate Planning Director Name Role Phone Kesha PRECIADO, [facility] Primary Care Provider Alec Beckwith Unavailable [phone] Allergies Allergen (clinical drug ingredient) Drug/Non Drug [...] Problem Status W/U Status Risk Notes Problem 7381976 Former smoker (Z87.891) Active confirmed She has a plan for prevention of relapse in times of stress. I have counseled her about ongoing smoking cessation. Problem 89301726 Hyperlipidemia (E78.5) Active confirmed A fasting lipid profile is not available and has been requested from primary care. Problem 632250443 Asthma (J45.909) Active confirmed It is pollen season and she has occasional wheezing. This is controlled with her medications. Problem 62589667 Hepatitis C (B19.20) Active confirmed There is no sig n at this time of ongoing active infection. Problem 440832229 Anemia (D64.9) Active confirmed Her hematocrit is 34% with a normal mean cell volume. This is likely the anemia of chronic disease and will be observed. Problem 137568530 Thrombocytopenia (D69.6) Active confirmed Her platelet count is now normal at 174,000. The value will be observed. Problem 18989442 Human immunodeficiency virus [HIV] disease (B20) Active confirmed She has not developed any recent infections or HIV related neoplasms. She is compliant with the recommendations of infectious disease. The viral load is well controlled. Problem 167565448 Lobular carcinom a in situ of right breast (D05.01) Active confirmed There is no sign of recurrent disease. She is due for mammography and a study has been ordered. 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 It was thought to be reactive. Problem 25240736 Essential hypertension (I10) Active confirmed Her blood pressure has been normal. She was referred back to primary care for measurement. Problem 60006352 Depressive disorder, not elsewhere classified (F32.9) Active confirmed Her depre ssion is stable and well controlled and she is compliant with her medication. Problem 821570269 Obesity (BMI 35.0-39.9 without comorbidity) (E66.01) Active confirmed Her body mass index is 29 and I have recommended regular exercise and weight reduction through a diet restricted in calories fat in sodium. She has lost six pounds since her last visit. Problem 76282749 Sleep apnea (G47.30) Active confirmed She has been treated for this and denies any daytime somnolence. No additional therapy is necessary. She says she has been compliant with treatment Problem 798524540 H/O carpal tunne l syndrome (Z86.69) Active confirmed She has mi ld symptoms of neuropathy in her hands but these are mild and she is conducting all the activities of daily life without impairment. Problem 967345998 Chronic kidney disease, stage I (N18.1) Active confirmed Her most recent available renal functions are normal. These will be followed carefully. On June 08, 2021. The BUN was 18, creatinine was normal. Problem 91296789 Hepatitis B (B19.10) Active confirmed There is [...] Date [place] [address] [place], [place] [id number] America Bower Self - patient is the [...]
--- OUTSIDE RECORDS SUMMARY | 2024-11-28 14:23 | XMS_ITS | Clinical Summary ---
Author Organization [employer] Address [address] [place] [address] Care Team Providers Care Supervisor Byproducts Name Role Phone Unavailable Primary Care Provider [...] by mouth at bedtime. 4 Active Genvoya [phone] MG tablet Take 1 tablet by mouth [...] alent preservative free 02/09/2022,02/15/2020,02/14/2019 Influenza, Split (incl. ibjal fied surface antigen) 2013 Influenza, seasonal, injecta [...] Most Recently Relevant to Health Maintenance Insurance [facility] STANDARD DENTAL-[facility] [place] [address] [place] [address]
== END 2024-11-28 13:32 | disposition home or self-care (01) ==
LOC: HO.US 13:31
PROVIDERS: PCP Internal Medicine; Visit Provider Urology
DX: R31.29 Other microscopic hematuria (principal); N30.91 Cystitis, unspecified with hematuria; R30.0 Dysuria; N20.0 Calculus of kidney
CPT/HCPCS: 76775

== ENCOUNTER → 2024-11-28 13:33 | Outpatient (BNV) | payer MEDICAID, SELFPAY | PROVIDERS: PCP Internal Medicine; Visit Provider Radiology Diagnostic Radiology | DX: N28.1 Cyst of kidney, acquired (principal) | CPT/HCPCS: 76775 ==

== ENCOUNTER 2024-12-28 12:45 | Outpatient (AMB) | payer MEDICAID, SELFPAY ==
--- NOTE | 2024-12-28 13:14 | MHC.OFFVIS ---
Intake Visit Reasons: /US Intake Note: Patient is present for a /US Urology Medication:VITAMIN B6 Antibiotic Allergy:NONE Blood Thinner:NONE Detail Technician Required: Yes Detail Technician Language: Drying Frame Operator Services: Detail Technician Present Detail Technician Name: [id number]--[id number] Information Interpreted: non-clinical & clinical Allergies shellfish derived Allergy (Intermediate, Verified 12/28/24 13:22) HIVES, N/V Medication List - Last Reconciled 12/28/24 by Cornelia Fields MD acetaminophen 1,000 mg (2 x 500 mg) PO .q8 PRN albuterol sulfate 2.5 mg inhalation TID PRN albuterol sulfate 90 mcg/actuation (Ventolin HFA) 2 puffs inhalation QID PRN diazepam (Valium) 5 mg PO BID PRN diphenhydramine HCl 25 mg PO BEDTIME [id number]-ixp-ytezp-tenof alafen [phone] mg (Genvoya) 1 tab PO DAILY fluticasone furoate-vilanterol 200-25 mcg/dose (Breo Ellipta) 1 ea PO DAILY furosemide 20 mg PO DAILY 30 days hydrocortisone 1% (Cortisone (hydrocortisone)) 1 appl topical BID PRN ibuprofen 600 mg PO Q8H PRN ketotifen fumarate 0.025%(0.035%) 2 drps ophthalmic (eye) DAILY linaclotide (Linzess) 145 mcg PO DAILY loratadine 10 mg PO DAILY losartan 100 mg PO DAILY meclizine 12.5 mg PO TID PRN meloxicam 15 mg PO DAILY naproxen 500 mg PO BID PRN 7 days omeprazole 20 mg PO DAILY@0630 ondansetron 4 mg PO Q6H PRN oxycodone 5 mg PO BID PRN pyridoxine (vitamin B6) 100 mg PO DAILY 90 days rosuvastatin 40 mg PO BEDTIME sertraline 100 mg PO DAILY PRN simethicone 180 mg PO QID 30 days triamcinolone acetonide 0.5% 1 appl topical BID PRN umeclidinium 62.5 mcg/actuation (Incruse Ellipta) 1 inh inhalation DAILY walker (Ultra-Light Rollator misc) As directed zolpidem 10 mg PO BEDTIME HPI Comments Details: 12/28/24--America is a 64-year-old female is being followed for nephrolithiasis, recurrent UTI's, pelvic pain. She was last seen on 07/27/2024 --for office cystoscopy--cystoscopy findings:erythematous changes, without distinct papillary lesions visualized, urine was sent for cytology -resulting negative for malignant cells. The patient states lower urinary tract symptoms improved, denies dysuria. Reviewed ultrasound results with the patient. Results: US renal 11/28/24--bilateral renal cysts, no renal calculi. Plan continue to monitor kidneys and lower urinary tract symptoms. 07/27/24--America is a 63-year-old female is being followed for nephrolithiasis, recurrent UTI's, pelvic pain. America is a 63-year-old female is being followed for nephrolithiasis, recurrent UTI's, pelvic pain. Here for office cystoscopy--cystoscopy findings:erythematous changes, without distinct papillary lesions visualized, urine testing will be sent (cytology), discussed low-dose suppressive antibiotic therapy. Follow-up in 10-12 weeks renal ultrasound prior. 04/28/24--America is a 64 year old female who is followed for kidney stones and recurrent UTIs. She complains suprapubic pressure urinary frequency. Recurrent utis. Urine is nitrite positive. Will send urine culture and urine cytology. Plan follow-up cystoscopy consider antibiotic suppressive therapy. 12/28/23--s/p left ESWL on 10/20/23, reviewed FU renal US and KUB, left renal calculi, demonstrated with reduced stone burden, right renal calculi noted that was not seen on previous CTAP in July,, this year and I question accuracy. The patient complains of burning with urination. UA is nitrite positive. Will empirically prescribe Macrobid. FU in 4months, monitor UA, renal US in one year. --America is a 63-year-old female is being followed for nephrolithiasis, recurrent UTI's, pelvic pain. Reviewed CT KUB --07/28/23--right kidney is unremarkable. several nonobstructing left renal calculi. There are at least 5 calculi, ranging in size from 3 mm to 5 mm in the mid to lower pole. No left hydronephrosis or hydroureter. Discussed Left ESWL. Discussed risks to include but not limited to, blood in the urine, bruising to the skin, kidney hematoma, possible need for another procedure if a stone fragment obstructs the ureter while passing, possible need to repeat procedure if stone is not completely fragmented. Certified mechanical engineering manager present. 06/14/23--Bruneian-speaking female, certified mechanical engineering manager present, the patient was placed on suppressive nitrofurantoin 50 mg daily for chronic cystitis. She states that painful urination has improved. She has a history of bilateral kidney stones she denies gross blood in the urine. Urinalysis today -- leukocytes 1+, blood 1+. Macrobid 50 mg daily suppressive Abx therapy. Surveillance urine culture. Monitor kidney stones renal ultrasound and KUB follow-up in 3 months 04/15/23-- she is s/p outpatient cystoscopy - findings c/w cystitis follicularis. The patient was started on Macrobid. urine c/s sent reviewed. Certified mechanical engineering manager was present during the visit. The patient states bladder pain is improving. I have discussed continue macrobid antibiotic suppressive therapy. Her past medical history includes nicotine dependency, fibromyalgia, approximate 30 pack year smoker with underlying history of HIV on antivirals under the care of [facility], Breast cancer s/p lumpectomy in 2013 and multiple occurrences of hospitalizations for pneumonia, who is followed by Pulmonary. CAT scan done on 09/18/22 noting bilateral kidney stones.?--done without IV contrast -- Multiple 1 mm right kidney stones and multiple left kidney stones, the largest measuring 6 mm.? 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 HIV (human immunodeficiency virus infection) History of blood transfusion Anemia Hx of renal calculi Difficulty swallowing GERD (gastroesophageal reflux disease) Hepatitis Depression Sleep apnea Asthma Elevated cholesterol HTN (hypertension) Surgical History Hx of colonoscopy Hx of cystoscopy Hx of dilation and curettage Hx of section Hx of reduction mammoplasty Hx of tubal ligation Hx of cholecystectomy Family History Mother Breast cancer Father Heart problem Sister Bone cancer Family/Other Diabetes Social History Household Members: Family Housing: Apartment Housing Other:: lives alone, son staying with her Are you a primary director day care center to a significant other at home: No Do you presently have visiting nurse or other home services: No Unable to assess alcohol history related to: Unknown Alcohol intake: current Alcohol intake frequency: holidays/special occasions only Alcohol type: wine Comment: low falls risk Patient Tobacco Use Status: Former Tobacco user Tobacco use type: Cigarette Cigarette Packs Per Day: 2 Cigarettes Per Day: 40.0 Years Smoked: 40 e-Cigarette/Vaping Use: Never Used Second Hand Smoke Exposure: No Substance Use Type: Former Substance User service: No Sexual orientation: Straight/Heterosexual Gender identity: Female Female Reproductive History Menstrual Age of Menarche: 12 Review of Systems Const All systems reviewed & are unremarkable except as noted in HPI and below Reports no additional complaints Eyes Reports no additional complaints ENT Reports no additional complaints Card Reports no additional complaints Resp Reports no additional complaints GI Reports no additional complaints Reports as per HPI Musc Reports no additional complaints Skin/Breast Reports system reviewed and no additional complaints, except as documented Neuro Reports no additional complaints Psych Reports no additional complaints Endo Reports no additional complaints Flaquito/Lymph Reports no additional complaints Aller/Immun Reports no additional complaints Results Reviewed Results Reviewed: Date of Service: 11/28/24 CLINICAL HISTORY: N39.0 - Urinary tract infection, site not specified US of kidneys Comparison: US/SR - US RENAL BI - 12/06/23 09:32 EDT Findings: Right kidney is normal in size, echogenicity and morphology, 9.8 cm in length. 1 cm simple cyst at the upper interpolar region, stable. No calculus or hydronephrosis. Left kidney is normal in size, echogenicity and morphology, 10.5 cm in length. Simple cyst 6.0 x 4.3 x 4.6 cm in the upper pole, previously 5.3 x 4.2 x 6.3 cm, previously seen fine septation is not visualized. No calculus or hydronephrosis. Limited color Doppler demonstrates unremarkable bilateral blood flow. Impression: Bilateral simple renal cysts. Urine cytology-- Collected: 07/27/24 Location: [facility] Received: 07/28/24 Diagnosis Urine: Negative for high-grade urothelial carcinoma. See comment. COMMENT: Cellular specimen consisting of abundant acute inflammatory cells, rare single urothelial cells, squamous cells, and few red blood cells. Clinical History Microscopic hematuria Material Received Urine Gross Description Received is 28 cc of slightly cloudy pale yellow fluid from which a ThinPrep slide is prepared. Date of Service: 07/28/23 EXAMINATION: CT ABDOMEN AND PELVIS WITHOUT CONTRAST CLINICAL INFORMATION: Right renal calculus. COMPARISON: 07/18/2023 TECHNIQUE: Multidetector volumetric imaging was performed from the superior aspect of the liver through the pubic symphysis. Sagittal and coronal reformatted images were obtained on the technologist's workstation. This CT examination was performed using dose optimization techniques as appropriate, variously including the following: *Automated exposure control *Adjustment of mA and/or kV according to patient size (this includes techniques or standardized protocols for targeted exams where dose is matched to indication/reason for exam; i.e. extremities or head) *Use of iterative reconstruction technique DLP: 993 mGy-cm FINDINGS: Motion artifact technically degrades image quality. LUNG BASES: There is bibasilar airspace disease and bronchial wall thickening. Subpleural nodule in the right lower lobe measures 2.0 x 1.2 cm. New small right pleural effusion. LIVER, GALLBLADDER, AND BILIARY TREE: The noncontrast liver is normal in size and contour. No biliary ductal dilatation is present. The gallbladder is surgically absent. PANCREAS: Unremarkable. SPLEEN: Not enlarged. ADRENAL GLANDS: No adrenal mass. KIDNEYS AND URETERS: The right kidney is unremarkable. There are several nonobstructing left renal calculi. There are at least 5 calculi ranging in size from 3 mm to 5 mm in the mid to lower pole. No left hydronephrosis or hydroureter. 4.3 cm upper pole left renal cyst. BLADDER: No bladder calculus. GASTROINTESTINAL TRACT: No small bowel obstruction. Copious stool throughout the colon. ABDOMINAL WALL: No significant hernia is appreciated. LYMPH NODES: No bulky lymphadenopathy. VASCULAR: Normal caliber abdominal aorta. PELVIC VISCERA: No large adnexal masses are appreciated. OSSEOUS STRUCTURES: No destructive bone lesions. Fatty atrophy of the right lateral chest wall musculature. IMPRESSION: Bibasilar airspace disease, right greater than left, and bronchial wall thickening. Subpleural nodule in the right lower lobe measures 2.0 x 1.2 cm. New small right pleural effusion. Several nonobstructing left renal calculi are present. No hydronephrosis or hydroureter. Constipation. Ordered:? Urine Culture? Procedure?Result?Verified?Site ? Urine Culture? Final?11/09/22 ? ? ?Organism 1?Escherichia coli ? Quant?> 100,000 cfu/mL ? ESBL Note:? NOTE: Extended-Spectrum Beta-Lactamase enzyme present ? E coli? M.I.C.? ? RX? --------- ---?Ampicillin?>=32?R?Ceftriaxone? >=64?R?Ertapenem? <=0.12? ? ?S?Gentamicin?<=1? S?Levofloxacin?1? I?Nitrofurantoin?<=16?S?Trimethoprim/Sulfamethoxazole? <=20?S Assessment & Plan Assessment & Plan (1) Bilateral nephrolithiasis: Code(s): N20.0 - Calculus of kidney Category: Medical (2) History of kidney stones: Code(s): Z87.442 - Personal history of urinary calculi Category: Medical Plan Monitor kidneys, continue vitamin B6 Follow-up in 1 year, telehealth Orders: Orders US renal BI 10 Months N20.0 - Calculus of kidney, Z87.442 - Personal history of urinary calculi Medications: Refilled pyridoxine (vitamin B6) 100 mg PO DAILY 90 tabs 3RF kidney stones 90 days Patient Instructions: The patient had an opportunity to ask questions regarding treatment plan. The patient expressed understanding and agreement with the above treatment plan. The patient is aware they should contact our office by phone for worsening of their current condition or the appearance of new symptoms. Compliance is encouraged with any medications and followup testing that is ordered. It is a privilege to be allowed the opportunity to participate in the urologic care of your patient. If you have any questions or concerns regarding treatment for the above conditions please do not hesitate to contact me. The office telephone contact is [phone]. This note is constructed in part using voice recognition software. While every effort has been made to ensure accuracy retail interior designer errors may have been included. Yours sincerely, Cornelia Fields, MD Coding Level of Care Code Est Pt Level 3 (85983) Diagnoses Bilateral nephrolithiasis N20.0 History of kidney stones Z87.442
--- OUTSIDE RECORDS SUMMARY | 2024-12-28 16:55 | XMS_ITS | Encounter Summary ---
Author Organization [employer] Address [address] [facility] [address] [facility] [address] [place] [address] Care Team Providers Care Retail Sales Clerk Name Role Phone Unavailable Primary Care [...]
--- OUTSIDE RECORDS SUMMARY | 2024-12-28 16:55 | XMS_ITS | Patient Health Record ---
Author Organization Alec Strickland III, MD Address [address] [place] [address] Care Team Providers Care Cio Name Role Phone Kesha PRECIADO, [facility] Primary Care Provider Alec Beckwith Unavailable [phone] Allergies Allergen (clinical drug ingredient) Drug/Non Drug [...] Problem Status W/U Status Risk Notes Problem 5053821 Former smoker (Z87.891) Active confirmed She has a plan for prevention of relapse in times of stress. I have counseled her about ongoing smoking cessation. Problem 31800509 Hyperlipidemia (E78.5) Active confirmed A fasting lipid profile is not available and has been requested from primary care. Problem 028963084 Asthma (J45.909) Active confirmed It is pollen season and she has occasional wheezing. This is controlled with her medications. Problem 05860878 Hepatitis C (B19.20) Active confirmed There is no sig n at this time of ongoing active infection. Problem 069129670 Anemia (D64.9) Active confirmed Her hematocrit is 34% with a normal mean cell volume. This is likely the anemia of chronic disease and will be observed. Problem 243987883 Thrombocytopenia (D69.6) Active confirmed Her platelet count is now normal at 174,000. The value will be observed. Problem 44980847 Human immunodeficiency virus [HIV] disease (B20) Active confirmed She has not developed any recent infections or HIV related neoplasms. She is compliant with the recommendations of infectious disease. The viral load is well controlled. Problem 146332503 Lobular carcinom a in situ of right breast (D05.01) Active confirmed There is no sign of recurrent disease. She is due for mammography and a study has been ordered. 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 It was thought to be reactive. Problem 28784031 Essential hypertension (I10) Active confirmed Her blood pressure has been normal. She was referred back to primary care for measurement. Problem 81566914 Depressive disorder, not elsewhere classified (F32.9) Active confirmed Her depre ssion is stable and well controlled and she is compliant with her medication. Problem 557498182 Obesity (BMI 35.0-39.9 without comorbidity) (E66.01) Active confirmed Her body mass index is 29 and I have recommended regular exercise and weight reduction through a diet restricted in calories fat in sodium. She has lost six pounds since her last visit. Problem 27410535 Sleep apnea (G47.30) Active confirmed She has been treated for this and denies any daytime somnolence. No additional therapy is necessary. She says she has been compliant with treatment Problem 098858238 H/O carpal tunne l syndrome (Z86.69) Active confirmed She has mi ld symptoms of neuropathy in her hands but these are mild and she is conducting all the activities of daily life without impairment. Problem 854665477 Chronic kidney disease, stage I (N18.1) Active confirmed Her most recent available renal functions are normal. These will be followed carefully. On June 08, 2021. The BUN was 18, creatinine was normal. Problem 40345152 Hepatitis B (B19.10) Active confirmed There is [...] Date [place] [address] [place], [place] [id number] America Bower Self - patient is the [...]
--- OUTSIDE RECORDS SUMMARY | 2024-12-28 16:55 | XMS_ITS | Encounter Summary ---
Author Organization [employer] Address [address] [facility] [address] [place] [address] Care Team Providers Care Supply Chain Intern Name Role Phone Unavailable Primary Care Provider Unavailabl e Reason for Visit * Reason Onset Date Comments rs no show appt 04/13/2024 Encounter Details Date Type Department Care Team ([facility] st Contact Info) Description 04/13/2024 Telephone [facility] [address] [place] [address] Ruel Suresh rs no show appt Social [...]
--- OUTSIDE RECORDS SUMMARY | 2024-12-28 16:55 | XMS_ITS | Clinical Summary ---
Author Organization [employer] Address [address] [facility] [address] [place] [address] Care Team Providers Care Jockey Agent Name Role Phone Unavailable Primary Care Provider [...] by mouth at bedtime. 4 Active Genvoya [phone] MG tablet Take 1 tablet by mouth [...] of 3 - Risk 3-dose series) 2021 Dental Oral Exam 04/12/2024 10/11/2023, 02/2021, 07/19/2018, Additional history exists Dental Prophylaxis 04/12/2024 10/11/2023, 0 09/27/2020, 03/01/2019, Additional history exists Tobacco Screening 10/10/2024 10/11/2023 Dental X-Ray: Bitewings 10/11/2024 10/11/19, 11/04/2021, 09/27/2020, Additional history exists COVID-19 Vaccine ( season) 2024 05/19/2021, 08/14/2020, 07/24/2020 Influenza Vaccine (#1) 2024 , 12/31/2022, 02/09/2022, [...] Most Recently Relevant to Health Maintenance Insurance [facility] STANDARD DENTAL-[facility] [place] [address] [place] [address]
== END 2024-12-28 13:52 | disposition home or self-care (01) ==
LOC: HO.HUSH 12:46
PROVIDERS: PCP Internal Medicine; Visit Provider Urology
DX: N20.0 Calculus of kidney (principal); Z87.442 Personal history of urinary calculi; N39.0 Urinary tract infection, site not specified; R31.29 Other microscopic hematuria
CPT/HCPCS: 99213

== ENCOUNTER → 2024-12-28 12:45 | Outpatient (BNVA) | payer MEDICAID, SELFPAY | PROVIDERS: PCP Internal Medicine; Visit Provider Urology | DX: N20.0 Calculus of kidney (principal); N39.0 Urinary tract infection, site not specified; R31.29 Other microscopic hematuria; R10.2 Pelvic and perineal pain; Z87.442 Personal history of urinary calculi | CPT/HCPCS: 81003; 99212 ==

== ENCOUNTER 2025-02-09 11:02 | Outpatient (AMB) | payer MEDICAID, SELFPAY ==
--- NOTE | 2025-02-09 11:07 | A.OFFVIS_ITS ---
Vital Signs 02/09/25 11:12 Height 5 ft 6 in Intake Visit Reasons: OV - right knee OA Intake Note: America is a 64 year old female who presents today for a follow up of her right knee osteoarthritis. At her last visit she was recommended a topical cream [facility]. Patient states reports she is having a lot of pain in her knee and she hasn't tried the cream due to her insurance not covering it. Allergies shellfish derived Allergy (Intermediate, Verified 02/09/25 11:12) HIVES, N/V HPI HPI OV - right knee OA: Details: Ms. Bower is a 64-year-old female who presents to the office today for evaluation of chronic right knee pain due to osteoarthritis. When I had last seen the perla toussaint in the office on 08/03- 5 she reported that she had a cortisone injection roughly 1 month before this appointment in the right knee by her PCP. She reports that the injection did help her some. 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 HIV (human immunodeficiency virus infection) History of blood transfusion Anemia Hx of renal calculi Difficulty swallowing GERD (gastroesophageal reflux disease) Hepatitis Depression Sleep apnea Asthma Elevated cholesterol HTN (hypertension) Surgical History Hx of colonoscopy Hx of cystoscopy Hx of dilation and curettage Hx of section Hx of reduction mammoplasty Hx of tubal ligation Hx of cholecystectomy Family History Mother Breast cancer Father Heart problem Sister Bone cancer Family/Other Diabetes Social History Household Members: Family Housing: Apartment Housing Other:: lives alone, son staying with her Are you a primary patient care technician to a significant other at home: No Do you presently have visiting nurse or other home services: No Alcohol intake: current Alcohol intake frequency: holidays/special occasions only Alcohol type: wine Comment: low falls risk Patient Tobacco Use Status: Former Tobacco user Tobacco use type: Cigarette Cigarette Packs Per Day: 2 Cigarettes Per Day: 40.0 Years Smoked: 40 e-Cigarette/Vaping Use: Never Used Second Hand Smoke Exposure: No Substance Use Type: Former Substance User service: No Sexual orientation: Straight/Heterosexual Gender identity: Female Female Reproductive History Menstrual Age of Menarche: 12 Review of Systems Const All systems reviewed & are unremarkable except as noted in HPI and below Physical Exam Const General: cooperative, healthy appearing and no acute distress Resp Effort & Inspection: normal respiratory effort and able to speak in complete sentences Extrem Other: Right knee normal to inspection no ecchymosis, erythema or joint effusion. Range of motion 0-120. No tenderness to palpation medial and lateral joint line. NVI. Office Procedures AMB Joint Injection/Aspiration Joint Injection/Aspiration Primary Site: right knee Prep: site was prepped using aseptic technique, ethochloride spray was applied and injection warnings given Injected: 40 mg of, with 3 mL of, 1% plain lidocaine, 0.25% bupivacaine, in the joint and decadron Approach Used: anterolateral Procedure: The patient tolerated the procedure well, but had some pain with the injection and there was some relief with the local anesthesia Coding 97017 - Large joint Procedure code (CPT) selection complete Assessment & Plan Assessment & Plan (1) Osteoarthritis of right knee: Code(s): M17.11 - Unilateral primary osteoarthritis, right knee Category: Medical Plan The patient was offered a cortisone injection in the right knee. The patient was explained the risks, benefits, and alternatives to receiving this injection. After receiving consent for the injection, the patient had the procedure done while in the office today. The patient tolerated the procedure well with no com plications. Additionally, we will petition the insurance company for coverage of gel injections. Follow-up will be pending gel injection authorization, or sooner if needed Coding Level of Care Code Est Pt Level 3 (14368) Diagnoses Osteoarthritis of right knee M17.11 CPT Codes Coding - 44819 Large joint: 04749 - Large joint ([id number])
--- OUTSIDE RECORDS SUMMARY | 2025-02-09 13:05 | XMS_ITS | Clinical Summary ---
Author Organization [employer] Address [address] [facility] [address] [place] [address] Care Team Providers Care Brand Planner Name Role Phone Unavailable Primary Care Provider [...] by mouth at bedtime. 4 Active Genvoya [phone] MG tablet Take 1 tablet by mouth [...] Most Recently Relevant to Health Maintenance Insurance [facility] STANDARD [facility] [place] [address] [place] [address]
--- OUTSIDE RECORDS SUMMARY | 2025-02-09 13:06 | XMS_ITS | Encounter Summary ---
Author Organization [employer] Address [address] [facility] [address] [place] [address] Care Team Providers Care Vending Machine Repairer Name Role Phone Unavailable Primary Care Provider [...]
--- OUTSIDE RECORDS SUMMARY | 2025-02-09 13:06 | XMS_ITS | Patient Health Record ---
Author Organization Alec Strickland III, MD Address [address] [place] [address] Care Team Providers Care Balance Wheel Motion Inspector Name Role Phone Kesha PRECIADO, [facility] Primary Care Provider Laine Strickland III, Dr. Michael Unavailable [phone] Allergies Allergen (clinical drug ingredient) Drug/Non Drug [...] Problem Status W/U Status Risk Notes Problem 2822599 Former smoker (Z87.891) Active confirmed She has a plan for prevention of relapse in times of stress. I have counseled her about ongoing smoking cessation. Problem 90463673 Hyperlipidemia (E78.5) Active confirmed A fasting lipid profile is not available and has been requested from primary care. Problem 765037433 Asthma (J45.909) Active confirmed It is pollen season and she has occasional wheezing. This is controlled with her medications. Problem 71314735 Hepatitis C (B19.20) Active confirmed There is no sig n at this time of ongoing active infection. Problem 910595708 Anemia (D64.9) Active confirmed Her hematocrit is 34% with a normal mean cell volume. This is likely the anemia of chronic disease and will be observed. Problem 362868197 Thrombocytopenia (D69.6) Active confirmed Her platelet count is now normal at 174,000. The value will be observed. Problem 01017631 Human immunodeficiency virus [HIV] disease (B20) Active confirmed She has not developed any recent infections or HIV related neoplasms. She is compliant with the recommendations of infectious disease. The viral load is well controlled. Problem 272798210 Lobular carcinom a in situ of right breast (D05.01) Active confirmed There is no sign of recurrent disease. She is due for mammography and a study has been ordered. 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 It was thought to be reactive. Problem 17696975 Essential hypertension (I10) Active confirmed Her blood pressure has been normal. She was referred back to primary care for measurement. Problem 73180726 Depressive disorder, not elsewhere classified (F32.9) Active confirmed Her depre ssion is stable and well controlled and she is compliant with her medication. Problem 192763990 Obesity (BMI 35.0-39.9 without comorbidity) (E66.01) Active confirmed Her body mass index is 29 and I have recommended regular exercise and weight reduction through a diet restricted in calories fat in sodium. She has lost six pounds since her last visit. Problem 95772549 Sleep apnea (G47.30) Active confirmed She has been treated for this and denies any daytime somnolence. No additional therapy is necessary. She says she has been compliant with treatment Problem 213692526 H/O carpal tunne l syndrome (Z86.69) Active confirmed She has mi ld symptoms of neuropathy in her hands but these are mild and she is conducting all the activities of daily life without impairment. Problem 954547691 Chronic kidney disease, stage I (N18.1) Active confirmed Her most recent available renal functions are normal. These will be followed carefully. On June 08, 2021. The BUN was 18, creatinine was normal. Problem 05983223 Hepatitis B (B19.10) Active confirmed There is [...] Date [place] [address] [place], [place] [id number] America Bower Self - patient is the [...]
--- OUTSIDE RECORDS SUMMARY | 2025-02-09 13:06 | XMS_ITS | Encounter Summary ---
Author Organization [employer] Address [address] [place] [address] Care Team Providers Care Weather Stripper Name Role Phone Unavailable Primary Care Provider Unavailabl e Reason for Visit * Reason Onset Date Comments rs no show appt 04/13/2024 Encounter Details Date Type Department Care Team ([facility] st Contact Info) Description 04/13/2024 Telephone [facility] ADULT D[facility] [address] [place] [address] Ruel Suresh rs no show appt Social [...]
== END 2025-02-09 11:29 | disposition home or self-care (01) ==
LOC: HO.HOS 11:02
PROVIDERS: PCP Internal Medicine; Visit Provider Physician Assistant
DX: M17.11 Unilateral primary osteoarthritis, right knee (principal)
CPT/HCPCS: 20610; 99213

== ENCOUNTER → 2025-02-09 11:02 | Outpatient (BNVA) | payer MEDICAID, SELFPAY | PROVIDERS: PCP Internal Medicine; Visit Provider Physician Assistant | DX: M17.11 Unilateral primary osteoarthritis, right knee (principal) | CPT/HCPCS: 20610; 99212; J0665; J1100; J2003 ==

== ENCOUNTER 2025-02-14 11:23 | Outpatient (REF) | payer MEDICAID, SELFPAY ==
[2025-02-14 11:37] LABS: MANUAL DIFF FLAG NO
[2025-02-14 11:49] LABS: Hematocrit 35.7 % (37.0-47.0); Hemoglobin 11.6 g/dl (12.0-16.0); Imm Gran Abs Auto 0.02 X10*3/uL (0.00-0.03); Imm Gran Pct Auto 0.4 % (0.0-0.4); Lymphocytes Absolute Auto 1.3 X10*3/uL (1.2-4.9); Mean Corpuscular HGB Conc 32.5 g/dl (31.0-35.0); Mean Corpuscular Hemoglobin 29.1 pg (27.0-33.0); Mean Corpuscular Volume 89.5 fL (80.0-98.0); NRBC Abs Auto 0.000 X10*3/uL (0.0-0.012); NRBC Pct Auto 0.0 /100WBC (0.0-0.2); Platelet Count 208 X10*3/uL (160-400); Red Blood Count 3.99 X10*6/uL (4.20-5.50); White Blood Count 4.6 X10*3/uL (4.8-10.8)
[2025-02-14 12:35] LABS: Alanine Aminotransferase 19 U/L (0-31); Albumin Level 4.0 g/dL (3.5-5.0); Alkaline Phosphatase 70 U/L (39-117); Anion Gap 10 (12-20); Aspartate Amino Transferase 31 U/L (5-31); Blood Urea Nitrogen 24 mg/dL (9-16); Calcium 9.0 mg/dL (8.4-10.2); Carbon Dioxide 25 mmol/L (22-29); Chloride 111 mmol/L (96-108); Cholesterol 190 mg/dL (<200); Estimated Glomerular Filt Rate 56; HDL Cholesterol 55 mg/dL (>40); Potassium 3.8 mmol/L (3.3-5.1); Sodium 142 mmol/L (135-145); Total Protein 7.3 g/dL (6.5-8.0); Triglycerides 137 mg/dL (<150)
--- OUTSIDE RECORDS SUMMARY | 2025-02-14 14:40 | XMS_ITS | Encounter Summary ---
Author Organization [employer] Address [address] [facility] [address] [place] [address] Care Team Providers Care Anti Tank Missileman Name Role Phone Unavailable Primary Care Provider [...]
--- OUTSIDE RECORDS SUMMARY | 2025-02-14 14:40 | XMS_ITS | Patient Health Record ---
Author Organization Alec Strickland III, MD Address [address] [address] Care Team Providers Care Crane Operator Cab Name Role Phone Kesha PRECIADO, [facility] Primary Care Provider Laine Strickland III, Dr. Michael Unavailable Allergies Allergen (clinical drug ingredient) Drug/Non Drug [...] Problem Status W/U Status Risk Notes Problem 3721908 Former smoker (Z87.891) Active confirmed She has a plan for prevention of relapse in times of stress. I have counseled her about ongoing smoking cessation. Problem 99677232 Hyperlipidemia (E78.5) Active confirmed A fasting lipid profile is not available and has been requested from primary care. Problem 993761563 Asthma (J45.909) Active confirmed It is pollen season and she has occasional wheezing. This is controlled with her medications. Problem 74066975 Hepatitis C (B19.20) Active confirmed There is no sig n at this time of ongoing active infection. Problem 370678381 Anemia (D64.9) Active confirmed Her hematocrit is 34% with a normal mean cell volume. This is likely the anemia of chronic disease and will be observed. Problem 332841574 Thrombocytopenia (D69.6) Active confirmed Her platelet count is now normal at 174,000. The value will be observed. Problem 76985587 Human immunodeficiency virus [HIV] disease (B20) Active confirmed She has not developed any recent infections or HIV related neoplasms. She is compliant with the recommendations of infectious disease. The viral load is well controlled. Problem 715009741 Lobular carcinom a in situ of right breast (D05.01) Active confirmed There is no sign of recurrent disease. She is due for mammography and a study has been ordered. 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 It was thought to be reactive. Problem 95160594 Essential hypertension (I10) Active confirmed Her blood pressure has been normal. She was referred back to primary care for measurement. Problem 97985054 Depressive disorder, not elsewhere classified (F32.9) Active confirmed Her depre ssion is stable and well controlled and she is compliant with her medication. Problem 466548741 Obesity (BMI 35.0-39.9 without comorbidity) (E66.01) Active confirmed Her body mass index is 29 and I have recommended regular exercise and weight reduction through a diet restricted in calories fat in sodium. She has lost six pounds since her last visit. Problem 36211557 Sleep apnea (G47.30) Active confirmed She has been treated for this and denies any daytime somnolence. No additional therapy is necessary. She says she has been compliant with treatment Problem 419862004 H/O carpal tunne l syndrome (Z86.69) Active confirmed She has mi ld symptoms of neuropathy in her hands but these are mild and she is conducting all the activities of daily life without impairment. Problem 797934580 Chronic kidney disease, stage I (N18.1) Active confirmed Her most recent available renal functions are normal. These will be followed carefully. On June 08, 2021. The BUN was 18, creatinine was normal. Problem 26043297 Hepatitis B (B19.10) Active confirmed There is [...] Date [place] [address] [place], [place] [id number] America Bower Self - patient is the [...]
--- OUTSIDE RECORDS SUMMARY | 2025-02-14 14:40 | XMS_ITS | Clinical Summary ---
Author Organization [employer] Address [address] [facility] [address] [place] [address] Care Team Providers Care Professional Application Designer Name Role Phone Unavailable Primary Care Provider [...] by mouth at bedtime. 4 Active Genvoya [id number] MG tablet Take 1 tablet by mouth [...] Most Recently Relevant to Health Maintenance Insurance [facility] STANDARD D[facility]AL-[facility] [place] [address] [place] [address]
--- OUTSIDE RECORDS SUMMARY | 2025-02-14 14:41 | XMS_ITS | Encounter Summary ---
Author Organization [employer] Address [address] [facility] [address] [place] [address] Care Team Providers Care Licensed Bondsman Name Role Phone Unavailable Primary Care Provider Unavailabl e Reason for Visit * Reason Onset Date Comments rs no show appt 04/13/2024 Encounter Details Date Type Department Care Team ([facility] st Contact Info) Description 04/13/2024 Telephone [facility] ADULT DENTAL [address] [place] [address] Ruel Suresh rs no show appt Social [...]
== END 2025-02-14 11:24 | disposition home or self-care (01) ==
LOC: HO.LAB 11:23
PROVIDERS: PCP Internal Medicine; Visit Provider Internal Medicine
DX: G47.33 Obstructive sleep apnea (adult) (pediatric) (principal); I10 Essential (primary) hypertension
CPT/HCPCS: 36415; 80053; 80061; 85025

== ENCOUNTER 2025-03-05 10:31 | Emergency (ER) | payer MEDICAID, SELFPAY ==
--- NOTE | ~2025-03-05 | CT_ITS ---
EXAMINATION: CT CHEST, ABDOMEN AND PELVIS WITH CONTRAST CLINICAL INFORMATION: Pneumonia, pleural effusions?. Flank pain, dysuria, question kidney stones COMPARISON: CT abdomen 11/26/2024. CT chest 05/22/2023 TECHNIQUE: Multidetector volumetric imaging was performed from the thoracic inlet through the pubic symphysis without contrast Sagittal and coronal reformatted images were obtained on the technologist workstation. Total exam dose-length product 270 mGy-cm FINDINGS: CHEST: Lung: Trachea and central airway are patent. Mild right apical pleural parenchymal scarring. Reticular nodular opacities in bilateral lower lungs. Calcified nodules in the left lower lobe. No confluent consolidation.. Pleura: No pleural effusion or pneumothorax. Mediastinum: No suspicious thyroid findings. Normal heart size. No pericardial effusion. No hilar or mediastinal lymphadenopathy. Vascular: Normal caliber aorta. Chest Wall/Axilla: No axillary or internal mammary lymphadenopathy. Osseous structures: Multilevel thoracic spondylosis. No suspicious osseous finding seen. ABDOMEN/PELVIS: Liver, Gallbladder and Biliary Tree: No suspicious liver lesions. No intrahepatic biliary duct dilatation. Status postcholecystectomy. Redemonstrated is CBD measuring 11 mm, which could represent compensatory dilatation. No choledocholithiasis is seen. Pancreas: Unremarkable. No acute inflammatory changes. Spleen: Normal size Adrenal Glands: Unremarkable Kidneys and Ureters: Punctate right renal nonobstructing calculus. Multiple small left renal nonobstructing calculi. Left upper pole cyst. No ureteral calculi identified. No hydronephrosis. No significant perinephric stranding. Gastrointestinal Tract: Stomach is nondistended. Nonobstructive bowel gas pattern. Moderate-large volume stool in the colon. Prominent stool in the rectum. No bowel inflammatory changes seen. Normal appendix. Peritoneum: No free fluid. No free air. No mesenteric inflammatory changes seen. Abdominal Wall: No significant hernia is appreciated. Lymphovascular Structures: No pathologically enlarged lymph nodes is seen. Normal caliber aorta. Bladder: No focal mass or wall thickening seen. No bladder calculi. Pelvic Viscera: No suspicious findings Osseous Structures: Multilevel degenerative changes spine. No destructive process is identified. CT/CT abdomen pelvis wo IV con IMPRESSION: * Reticular nodular opacities in bilateral lower lungs. This could reflect inflammatory or infectious process. No confluent consolidation is seen. * Nonobstructing bilateral renal calculi. No evidence of hydroureteronephrosis. No ureteral calculi identified. * Nonobstructive bowel gas pattern. Moderate-large volume stool in the colon. Prominent stool in the rectum. * No acute intra-abdominal findings otherwise identified. Cause of the patient's symptoms has not been determined.. Electronically signed by: Willem Stevens MD 03/05/2025 01:53 PM [facility]
--- NOTE | ~2025-03-05 | CT_ITS ---
EXAMINATION: CT CHEST, ABDOMEN AND PELVIS WITH CONTRAST CLINICAL INFORMATION: Pneumonia, pleural effusions?. Flank pain, dysuria, question kidney stones COMPARISON: CT abdomen 11/26/2024. CT chest 05/22/2023 TECHNIQUE: Multidetector volumetric imaging was performed from the thoracic inlet through the pubic symphysis without contrast Sagittal and coronal reformatted images were obtained on the technologist workstation. Total exam dose-length product 270 mGy-cm FINDINGS: CHEST: Lung: Trachea and central airway are patent. Mild right apical pleural parenchymal scarring. Reticular nodular opacities in bilateral lower lungs. Calcified nodules in the left lower lobe. No confluent consolidation.. Pleura: No pleural effusion or pneumothorax. Mediastinum: No suspicious thyroid findings. Normal heart size. No pericardial effusion. No hilar or mediastinal lymphadenopathy. Vascular: Normal caliber aorta. Chest Wall/Axilla: No axillary or internal mammary lymphadenopathy. Osseous structures: Multilevel thoracic spondylosis. No suspicious osseous finding seen. ABDOMEN/PELVIS: Liver, Gallbladder and Biliary Tree: No suspicious liver lesions. No intrahepatic biliary duct dilatation. Status postcholecystectomy. Redemonstrated is CBD measuring 11 mm, which could represent compensatory dilatation. No choledocholithiasis is seen. Pancreas: Unremarkable. No acute inflammatory changes. Spleen: Normal size Adrenal Glands: Unremarkable Kidneys and Ureters: Punctate right renal nonobstructing calculus. Multiple small left renal nonobstructing calculi. Left upper pole cyst. No ureteral calculi identified. No hydronephrosis. No significant perinephric stranding. Gastrointestinal Tract: Stomach is nondistended. Nonobstructive bowel gas pattern. Moderate-large volume stool in the colon. Prominent stool in the rectum. No bowel inflammatory changes seen. Normal appendix. Peritoneum: No free fluid. No free air. No mesenteric inflammatory changes seen. Abdominal Wall: No significant hernia is appreciated. Lymphovascular Structures: No pathologically enlarged lymph nodes is seen. Normal caliber aorta. Bladder: No focal mass or wall thickening seen. No bladder calculi. Pelvic Viscera: No suspicious findings Osseous Structures: Multilevel degenerative changes spine. No destructive process is identified. CT/CT chest wo IV con IMPRESSION: * Reticular nodular opacities in bilateral lower lungs. This could reflect inflammatory or infectious process. No confluent consolidation is seen. * Nonobstructing bilateral renal calculi. No evidence of hydroureteronephrosis. No ureteral calculi identified. * Nonobstructive bowel gas pattern. Moderate-large volume stool in the colon. Prominent stool in the rectum. * No acute intra-abdominal findings otherwise identified. Cause of the patient's symptoms has not been determined.. Electronically signed by: Willem Stevens MD 03/05/2025 01:53 PM [facility] [place] [facility] [place]
[2025-03-05 11:02] VITALS: BP 152/67; PULSE 70; RESP 18; TEMP 36.3; O2SAT 97; BMI 35.1
--- NOTE | 2025-03-05 11:05 | ECG_ITS ---
Test Reason : SOB Blood Pressure : */* mmHG Vent. Rate : 65 BPM Atrial Rate : 65 BPM P-R Int : 160 ms QRS Dur : 88 ms QT Int : 414 ms P-R-T Axes : 68 -54 58 degrees QTcB Int : 430 ms Normal sinus rhythm Left anterior fascicular block Nonspecific ST abnormality Abnormal ECG When compared with ECG of 12-Sep-2024 13:23, Nonspecific T wave abnormality no longer evident in Anterolateral leads Referred By: Vishal Lynch Electronically Signed By: FELICIANO RAMIREZ
--- NOTE | 2025-03-05 11:06 | ED.GENADULT ---
HPI - General Adult General Chief complaint: General Medical Stated complaint: Back pain w/ kidney stones. Swollen legs, multi co Time Seen by Provider: 03/05/25 13:21 Source: patient and pulper operator Mode of arrival: ambulatory Limitations: language barrier History of Present Illness ED Provider: HPI narrative: 65-year-old female history of obesity, osteoarthritis, hypertension, HIV, fibromyalgia, emphysema, anemia that presents with left lower extremity pain after having a surgical procedure done on 11/21/2024 , presenting with multiple nonspecific complaints she states my whole body hurts, she is concerned that ever since the vein procedure at [facility] her legs are getting swollen, she has a history of HIV on HAART, care at [facility], no fevers or chills reported, this is chronic intermittent issue, no dysuria no hematuria no cough no hemoptysis, no hematemesis or hematochezia. Related Data Home Medications ?Medication ?Instructions ?Recorded ?Confirmed elviteg 150 mg-cob 150 mg-emtricit 1 tab PO DAILY 07/17/23 12/28/24 200 mg-tenofo alafenam 10 mg tablet (Genvoya) ketotifen fumarate 0.025 % (0.035 2 drp ophthalmic (eye) DAILY 11/19/23 12/28/24 %) eye drops rosuvastatin 40 mg tablet 40 mg PO BEDTIME 11/19/23 12/28/24 losartan 100 mg tablet 100 mg PO DAILY 04/05/24 12/28/24 triamcinolone acetonide 0.5 % 1 appl topical BID PRN Rash 04/05/24 12/28/24 topical cream ondansetron 4 mg disintegrating 4 mg PO Q6H PRN nausea and vomiting 04/20/24 12/28/24 tablet albuterol sulfate 2.5 mg/0.5 mL 2.5 mg inhalation TID PRN 05/24/24 12/28/24 solution for nebulization Shortness Of Breath Or Wheezing albuterol sulfate 90 mcg/actuation 2 puff inhalation QID PRN asthma 05/24/24 12/28/24 aerosol inhaler (Ventolin HFA) diphenhydramine HCl 25 mg capsule 25 mg PO BEDTIME 05/24/24 12/28/24 Previous Rx's ?Medication ?Instructions ?Recorded furosemide 20 mg tablet 20 mg PO DAILY 30 days #30 tabs 07/19/23 meclizine 12.5 mg tablet 12.5 mg PO TID PRN Vertigo #12 tabs 07/19/23 meloxicam 15 mg tablet 15 mg PO DAILY #30 tabs 07/19/23 sertraline 100 mg tablet 100 mg PO DAILY PRN mood #30 tabs 07/19/23 zolpidem 10 mg tablet 10 mg PO BEDTIME #30 tabs 07/19/23 loratadine 10 mg tablet 10 mg PO DAILY #30 tabs 07/20/23 naproxen 500 mg tablet 500 mg PO BID PRN pain 7 days #14 07/28/23 tabs simethicone 180 mg capsule 180 mg PO QID 30 days #120 caps 11/19/23 hydrocortisone 1 % topical cream 1 appl topical BID PRN itching 12/06/23 (Cortisone (hydrocortisone)) #28.35 grams umeclidinium 62.5 mcg/actuation 1 inh inhalation DAILY #1 ea 02/15/24 blister powder for inhalation (Incruse Ellipta) montserrat (Ultra-Light Rollator misc) #1 ea 04/21/24 omeprazole 20 mg capsule,delayed 20 mg PO DAILY@0630 #90 caps 05/31/24 release acetaminophen 500 mg capsule 1,000 mg (2 x 500 mg) PO .q8 PRN 11/26/24 fever or pain #30 caps diazepam 5 mg tablet (Valium) 5 mg PO BID PRN muscle spasm #10 11/26/24 tabs ibuprofen 600 mg tablet 600 mg PO Q8H PRN fever or pain 11/26/24 #30 tabs oxycodone 5 mg tablet 5 mg PO BID PRN pain #10 tabs 11/26/24 pyridoxine (vitamin B6) 100 mg 100 mg PO DAILY kidney stones 90 12/28/24 tablet days #90 tabs linaclotide 145 mcg capsule 145 mcg PO QAM #30 caps 01/02/25 (Linzess) lidocaine HCl 3 % topical cream 1 appl topical QID PRN pain #28.35 02/09/25 grams Breo Ellipta 200 mcg-25 mcg/dose 1 ea PO DAILY #60 ea 02/26/25 powder for inhalation (fluticasone furoate-vilanterol) Allergies Allergy/AdvReac Type Severity Reaction Status Date / Time shellfish derived Allergy Intermediate HIVES, N/V Verified 03/05/25 11:03 Review of Systems Constitutional: Constitutional: Reports as per 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 HIV (human immunodeficiency virus infection) History of blood transfusion Anemia Hx of renal calculi Difficulty swallowing GERD (gastroesophageal reflux disease) Hepatitis Depression Sleep apnea Asthma Elevated cholesterol HTN (hypertension) Surgical History Hx of colonoscopy Hx of cystoscopy Hx of dilation and curettage Hx of section Hx of reduction mammoplasty Hx of tubal ligation Hx of cholecystectomy Family History Family History Mother Breast cancer Father Heart problem Sister Bone cancer Family/Other Diabetes Social History Social History Household Members: Family Housing: Apartment Housing Other:: lives alone, son staying with her Are you a primary transitions rn care coordinator to a significant other at home: No Do you presently have visiting nurse or other home services: No Alcohol intake: current Alcohol intake frequency: holidays/special occasions only Alcohol type: wine Comment: low falls risk Patient Tobacco Use Status: Former Tobacco user Tobacco use type: Cigarette Cigarette Packs Per Day: 2 Cigarettes Per Day: 40.0 Years Smoked: 40 Smoked in Last 30 Days: No e-Cigarette/Vaping Use: Never Used Second Hand Smoke Exposure: No Use of substances other than those prescribed or required for medical reasons: No Substance Use Type: Former Substance User Advance Directives: No Advance Directives Information Provided: Yes Patient : No service: No Sexual orientation: Straight/Heterosexual Gender identity: Female Physical Exam ED Exam Exam: General: looks age appropriate PERRLA, EOMI, MMM, Neck: Supple, no LAD CV: RRR, no obvious murmurs appreciated Resp: ?No wheezing rales rhonchi no stridor moving air well Abd: ?Bowel sounds are present, no tenderness no rebound no rigidity MSK: FROM, strength 5/5 all extremities , varicose veins noted, no pitting edema distal pulses intact Skin: Warm, dry, intact, Neuro: ?Alert and oriented x3, moving upper and lower extremities symmetrically, no obvious facial asymmetry noted, cranial nerves 2-12 intact Vital Signs: Vital Signs - 24 hr 03/05/25 11:02 03/05/25 14:43 03/05/25 14:50 Temperature 97.3 F 98.7 F 98.7 F Pulse Rate 70 63 63 Respiratory Rate 18 12 12 Blood Pressure 152/67 H 120/70 120/70 Pulse Oximetry 97 96 96 Oxygen Delivery Method Room Air Room Air Room Air BMI result Body Mass Index 35.1 Course Course Course Narrative: RME: 65-year-old female history of CHF and kidney stones presents to ED for back pain, with pain on urination and dysuria. Patient has secondary complaint bilateral leg swelling, and shortness of breath on exertion. Patient came to the ED to be evaluated. Patient's vital signs are stable. Labs EKG UA ordered Medications Administered Discontinued Medications Generic Name Dose Route Start Last Admin Trade Name Freq PRN Reason Stop Dose Admin Ketorolac Tromethamine 15 mg 03/05/25 14:30 03/05/25 14:54 Ketorolac Tromethamine 15 Mg/Ml Vial IVPUSH 03/05/25 14:31 15 mg ONCE ONE Administration Medical Decision Making Medical Decision Making [facility] Narrative: 1:58 PM 03/05/2025 (Dr. Pradip Gonzalez): multiple complaints and differential is broad see below, she has history of HIV, on medications, unsure of her numbers, no fevers or chills no tachycardia at I do not suspect underlying infectious, blood work without abnormalities urine with small amount of hematuria this is chronic, there was no evidence for DVT or arterial insufficiency in the lower extremities, imaging of the chest and abdomen due to multiple complaints was obtained disposition to be determined Differential Diagnosis Differential Diagnoses: The differential diagnosis associated with the presentation includes ( KAYLEE, dehydration, rhabdomyolysis, pneumonia, diverticulitis, ACS) Lab Data [facility] Lab Attestation statement: I reviewed the patient's lab results. 03/05/25 11:17 03/05/25 11:17 Labs: Lab Results 1103/05/25 03/05/25 Range/Units 11:17 11:18 11:19 WBC 4.0 L (4.8-10.8) X10*3/uL RBC 4.23 (4.20-5.50) X10*6/uL Hgb 12.2 (12.0-16.0) g/dl Hct 37.7 (37.0-47.0) % MCV 89.1 (80.0-98.0) fL MCH 28.8 (27.0-33.0) pg MCHC 32.4 (31.0-35.0) g/dl RDW 13.0 (11.0-16.0) % Plt Count 168 (160-400) X10*3/uL MPV 11.7 (9.4-12.3) fL Immature Gran % (Auto) 0.2 (0.0-0.4) % Neut % (Auto) 62.0 (45-73) % Lymph % (Auto) 27.7 (20-40) % Barry % (Auto) 7.4 (2-11) % Eos % (Auto) 2.5 (0-4) % Baso % (Auto) 0.2 (0-2) % Lymph # (Auto) 1.1 L (1.2-4.9) X10*3/uL Barry # (Auto) 0.3 (0.1-1.2) X10*3/uL Eos # (Auto) 0.1 (0.0-0.4) X10*3/uL Baso # (Auto) 0.0 (0.0-0.2) X10*3/uL Abs Immat Gran (auto) 0.01 (0.00-0.03) X10*3/uL Absolute Neuts (auto) 2.5 (2.0-8.3) x10*3/uL Absolute Nucleated RBC 0.000 (0.0-0.012) X10*3/uL Nucleated RBC % (auto) 0.0 (0.0-0.2) /100WBC PT 12.3 (11.2-13.5) SEC INR 1.0 (0.9-1.1) APTT 33.0 (26.7-34.1) SEC Sodium 142 (135-145) mmol/L Potassium 4.1 (3.3-5.1) mmol/L Chloride 109 H (96-108) mmol/L Carbon Dioxide 23 (22-29) mmol/L Anion Gap 14 (12-20) BUN 19 H (9-16) mg/dL Creatinine 0.96 (0.5-1.4) mg/dL Estim Creat Clear Calc 63.0 Estimated GFR 59 Random Glucose 90 (60-115) mg/dL Calcium 9.5 (8.4-10.2) mg/dL Total Bilirubin 0.5 (0.0-1.0) mg/dL AST 26 (5-31) U/L ALT 20 (0-31) U/L Alkaline Phosphatase 68 (39-117) U/L NT-Pro-B Natriuret Pep 172.5 (<300) pg/mL Total Protein 7.8 (6.5-8.0) g/dL Albumin 4.3 (3.5-5.0) g/dL Urine Color Yellow Urine Appearance Clear Urine pH 6.0 (5.0-9.0) Ur Specific [place] 1.015 (1.005-1.025) Urine Protein Trace (Neg-Trace) mg/dL Urine Glucose (UA) Negative (Negative) mg/dL Urine Ketones Negative (Negative) mg/dL Urine Blood Moderate (2+) H (Negative) Urine Nitrite Negative (Negative) Ur Leukocyte Esterase Small (1+) H (Negative) Urine RBC 3-5 H (0-2) /HPF Urine WBC 0-5 (0-5) /HPF Ur Squamous Epith Cells 6-10 (0-2) /HPF Urine Bacteria None Seen (None Seen) Hyaline Casts 0-2 (0-2) /LPF COVID-19 (JONH) Negative (Negative) COVID-19 Clin Com See Note Influenza Type A (STEVEN) Negative (Negative) Influenza Type B (STEVEN) Negative (Negative) Influenza A & B Note See Note Independent Interpretation I performed an independent interpretation of an: EKG ( 65 beats per minute otherwise normal ECG without dysrhythmia, AV vamsi blocks or ST-T changes to suspect underlying ACS, my independent interpretation) Radiology Impression Discussion of test interpretation with radiology: I have reviewed the radiologist's reading. Radiologist Impression: * Reticular nodular opacities in bilateral lower lungs. This could reflect inflammatory or infectious process. No confluent consolidation is seen. * Nonobstructing bilateral renal calculi. No evidence of hydroureteronephrosis. No ureteral calculi identified. * Nonobstructive bowel gas pattern. Moderate-large volume stool in the colon. Prominent stool in the rectum. * No acute intra-abdominal findings otherwise identified. Cause of the patient's symptoms has not been determined.. Independent Historian Clinical information obtained from an independent historian. History obtained from or confirmed by: EMS External Record Review External record reviewed: Office record and Prior outpatient labs Discharge Plan Discharge Clinical Impression: Body aches, Leg pain, bilateral Patient Disposition: Home, Self-Care Additional Instructions: you were evaluated with multiple complaints and underwent a very significant workup which included CAT scan of the chest and CAT scan of the abdomen blood work EKG, COVID swab, urinalysis all of which did not reveal any acute findings, there are some chronic CAT scan findings and you have some blood in the urine that is chronic as well that can be follow up by your PCP, you can take either savm-yxn-szrpksr Tylenol or Motrin for your symptoms and follow up with the PCP worsening issues concerns come back to the ER Se le evalu? por m?ltiples molestias y se le realiz? un estudio exhaustivo que incluy? tomograf?a computarizada de t?rax y abdomen, an?lisis de giovanni, electrocardiograma, prueba de COVID-19 y an?lisis de orina. Ninguno de los an?lisis revel? hallazgos agudos. Sin embargo, la tomograf?a computarizada mostr? algunos hallazgos cr?nicos y tambi?n presenta giovanni en la orina, un hallazgo cr?guanako que puede ser evaluado por jaeger m?dico de cabecera. Puede yasir paracetamol o ibuprofeno de venta junior para aliviar gloria s?ntomas y consultar con jaeger m?dico de cabecera. Si los s?ntomas empeoran o presenta alguna inquietud, regrese a urgencias. Prescriptions: No Action omeprazole 20 mg capsule,delayed release(DR/EC) 20 mg PO DAILY@0630 Qty: 90 2RF Linzess 145 mcg capsule 145 mcg PO QAM Qty: 30 4RF fluticasone furoate-vilanterol [Breo Ellipta] 200-25 mcg/dose blister with device 1 ea PO DAILY Qty: 60 0RF hydrocortisone [Cortisone (hydrocortisone)] 1 % cream 1 appl topical BID PRN (Reason: itching) Qty: 28.35 0RF albuterol sulfate [Ventolin HFA] 90 mcg/actuation HFA aerosol inhaler 2 puff INHALATION QID PRN (Reason: asthma) albuterol sulfate 2.5 mg/0.5 mL solution for nebulization 2.5 mg inhalation TID PRN (Reason: Shortness Of Breath Or Wheezing) diphenhydramine HCl 25 mg capsule 25 mg PO BEDTIME Genvoya [phone] mg tablet 1 tab PO DAILY Rx Instructions: with breakfast meloxicam 15 mg tablet 15 mg PO DAILY Qty: 30 0RF sertraline 100 mg tablet 100 mg PO DAILY PRN (Reason: mood) Qty: 30 0RF meclizine 12.5 mg tablet 12.5 mg PO TID PRN (Reason: Vertigo) Qty: 12 0RF furosemide 20 mg tablet 20 mg PO DAILY 30 Days Qty: 30 6RF zolpidem 10 mg tablet 10 mg PO BEDTIME Qty: 30 0RF loratadine 10 mg Tablet 10 mg PO DAILY Qty: 30 0RF naproxen 500 mg tablet 500 mg PO BID PRN (Reason: pain) 7 Days Qty: 14 0RF losartan 100 mg tablet 100 mg PO DAILY triamcinolone acetonide 0.5 % cream 1 appl topical BID PRN (Reason: Rash) ondansetron 4 mg tablet,disintegrating 4 mg PO Q6H PRN (Reason: nausea and vomiting) (DME) Ultra-Light Rollator Misc See Rx Instructions .Route Qty: 1 0RF Rx Instructions: As directed ibuprofen 600 mg tablet 600 mg PO Q8H PRN (Reason: fever or pain) Qty: 30 0RF acetaminophen 500 mg capsule 1,000 mg PO .q8 PRN (Reason: fever or pain) Qty: 30 0RF diazepam [Valium] 5 mg tablet 5 mg PO BID PRN (Reason: muscle spasm) Qty: 10 0RF oxycodone 5 mg tablet 5 mg PO BID PRN (Reason: pain) Qty: 10 0RF Rx Instructions: Partial Fill upon patient request. Incruse Ellipta 62.5 mcg/actuation blister with device 1 inh inhalation DAILY Qty: 1 6RF rosuvastatin 40 mg tablet 40 mg PO BEDTIME ketotifen fumarate 0.025 % (0.035 %) drops 2 drp ophthalmic (eye) DAILY simethicone 180 mg capsule 180 mg PO QID 30 Days Qty: 120 6RF Rx Instructions: after meals pyridoxine (vitamin B6) 100 mg tablet 100 mg PO DAILY 90 Days Qty: 90 3RF lidocaine HCl 3 % cream 1 appl topical QID PRN (Reason: pain) Qty: 28.35 0RF Interventions: ED Discharge Assessment Last Done: 03/05/25 14:50 Discharge Date/Time: 03/05/25 15:06 Print Language: [place]
[2025-03-05 11:24] LABS: MANUAL DIFF FLAG NO
[2025-03-05 11:27] LABS: Appearance Urine Clear; Glucose Urine UA Negative (Negative); PH 6.0 (5.0-9.0); Specific Gravity - Urine 1.015 (1.005-1.025); UMIC TRIGGER UACC YES
[2025-03-05 11:30] LABS: Hematocrit 37.7 % (37.0-47.0); Hemoglobin 12.2 g/dl (12.0-16.0); Imm Gran Abs Auto 0.01 X10*3/uL (0.00-0.03); Imm Gran Pct Auto 0.2 % (0.0-0.4); Lymphocytes Absolute Auto 1.1 X10*3/uL (1.2-4.9); Mean Corpuscular HGB Conc 32.4 g/dl (31.0-35.0); Mean Corpuscular Hemoglobin 28.8 pg (27.0-33.0); Mean Corpuscular Volume 89.1 fL (80.0-98.0); NRBC Abs Auto 0.000 X10*3/uL (0.0-0.012); NRBC Pct Auto 0.0 /100WBC (0.0-0.2); Platelet Count 168 X10*3/uL (160-400); Red Blood Count 4.23 X10*6/uL (4.20-5.50); White Blood Count 4.0 X10*3/uL (4.8-10.8)
[2025-03-05 11:40] LABS: Alanine Aminotransferase 20 U/L (0-31); Albumin Level 4.3 g/dL (3.5-5.0); Alkaline Phosphatase 68 U/L (39-117); Anion Gap 14 (12-20); Aspartate Amino Transferase 26 U/L (5-31); Blood Urea Nitrogen 19 mg/dL (9-16); Calcium 9.5 mg/dL (8.4-10.2); Carbon Dioxide 23 mmol/L (22-29); Chloride 109 mmol/L (96-108); Creatinine Clr Calc Pharmacy 63.0; Estimated Glomerular Filt Rate 59; Potassium 4.1 mmol/L (3.3-5.1); Sodium 142 mmol/L (135-145); Total Protein 7.8 g/dL (6.5-8.0)
[2025-03-05 11:41] LABS: INTERNATIONAL NORM RATIO 1.0 (0.9-1.1); Prothrombin Time 12.3 SEC (11.2-13.5)
[2025-03-05 11:44] LABS: Partial Thromboplastin Time 33.0 SEC (26.7-34.1)
[2025-03-05 11:46] LABS: UACC Culture Trigger YES
[2025-03-05 11:46] LABS: NT Pro B Type Natriuretic Pept 172.5 pg/mL (<300)
[2025-03-05 11:58] LABS: IDNOW Serial# 55D5AD1C; Influenza B2 Negative (Negative)
[2025-03-05 11:59] LABS: COVID-19 Test Negative (Negative); IDNOW Serial# 58CA691E
[2025-03-05 14:43] VITALS: BP 120/70; PULSE 63; RESP 12; TEMP 37.1; O2SAT 96
[2025-03-05 14:50] VITALS: BP 120/70; PULSE 63; RESP 12; TEMP 37.1; O2SAT 96
== END 2025-03-05 15:06 | disposition home or self-care (01) ==
PROVIDERS: Physician Assistant; Emergency Provider Emergency Medicine; PCP Internal Medicine
DX: M79.10 Myalgia, unspecified site (principal); R60.0 Localized edema; M79.605 Pain in left leg; R06.02 Shortness of breath; M54.50 Low back pain, unspecified; R10.22 Pelvic and perineal pain left side; M79.604 Pain in right leg; R94.31 Abnormal electrocardiogram [ECG] [EKG]; Z11.52 Encounter for screening for COVID-19; Z79.899 Other long term (current) drug therapy; Z87.891 Personal history of nicotine dependence
CPT/HCPCS: 36415; 71250; 74176; 80053; 81001; 83880; 85025; 85610; 85730; 87086; 87502; 87635; 93005; 96374; 99284; J1885

== ENCOUNTER → 2025-03-05 11:05 | Outpatient (BNV) | payer MEDICAID, SELFPAY | PROVIDERS: Emergency Provider Emergency Medicine; PCP Internal Medicine; Visit Provider Internal Medicine | DX: I44.4 Left anterior fascicular block (principal) | CPT/HCPCS: 93010 ==

== ENCOUNTER → 2025-03-05 12:30 | Outpatient (BNV) | payer MEDICAID, SELFPAY | PROVIDERS: Emergency Provider Emergency Medicine; PCP Internal Medicine; Visit Provider Radiology Diagnostic Ultrasound | DX: J18.9 Pneumonia, unspecified organism (principal); N20.0 Calculus of kidney; R91.8 Other nonspecific abnormal finding of lung field; R19.5 Other fecal abnormalities | CPT/HCPCS: 71250; 74176 ==

== ENCOUNTER 2025-03-08 14:21 | Outpatient (AMB) | payer MEDICAID, SELFPAY ==
--- NOTE | 2025-03-08 14:22 | A.OFFVIS_ITS ---
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 Patient recent CT chest does not demonstrate significant interstitial disease. Her 2D echocardiogram is essentially normal. She continues on Lasix with reasonable control of dyspnea and lower extremity edema. She has been using Breo, Incruse, and albuterol MDI/nebs with good control of her pulmonary symptoms. She was started CPAP therapy for underlying ANISH with improving compliance and symptoms. She denies recent exacerbations. 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 HIV (human immunodeficiency virus infection) History of blood transfusion Anemia Hx of renal calculi Difficulty swallowing GERD (gastroesophageal reflux disease) Hepatitis Depression Sleep apnea Asthma Elevated cholesterol HTN (hypertension) Surgical History Hx of colonoscopy Hx of cystoscopy Hx of dilation and curettage Hx of section Hx of reduction mammoplasty Hx of tubal ligation Hx of cholecystectomy Family History Mother Breast cancer Father Heart problem Sister Bone cancer Family/Other Diabetes Social History Household Members: Family Housing: Apartment Housing Other:: lives alone, son staying with her Are you a primary home health care respiratory therapist to a significant other at home: No Do you presently have visiting nurse or other home services: No Alcohol intake: current Alcohol intake frequency: holidays/special occasions only Alcohol type: wine Comment: low falls risk Patient Tobacco Use Status: Former Tobacco user Tobacco use type: Cigarette Cigarette Packs Per Day: 2 Cigarettes Per Day: 40.0 Years Smoked: 40 e-Cigarette/Vaping Use: Never Used Second Hand Smoke Exposure: No Substance Use Type: Former Substance User service: No Sexual orientation: Straight/Heterosexual Gender identity: Female Female Reproductive History Menstrual Age of Menarche: 12 Review of Systems Const Denies daytime sleepiness, Denies excessive sweating, Denies fatigue, Denies fever(s), Denies lethargy, Denies malaise, Denies night sweats, Denies snoring and Denies weight loss Eyes Denies blurry vision and Denies itchy eyes ENT Denies nasal congestion, Denies post nasal drip, Denies sinus pain, Denies sinus pressure and Denies other ( Thrush) Card Denies chest pain, Denies pedal edema, Denies dyspnea, Denies orthopnea and Denies paroxysmal nocturnal dyspnea Resp Denies cough, Denies hemoptysis, Denies excessive phlegm production, Denies dyspnea, Denies snoring and Denies wheezing GI Denies abdominal pain and Denies heartburn Musc Denies myalgias, Denies arthralgias and Denies joint swelling Skin/Breast Denies rash Neuro Denies memory loss and Denies seizure-like activity Psych Denies abnormal sleep pattern, Denies anxiety and Denies memory loss Endo Denies excessive sweating, Denies fatigue and Denies heat intolerance Flaquito/Lymph Denies easy bruising Aller/Immun Denies itchy eyes, Denies seasonal rhinorrhea and Denies wheezing Physical Exam Vital Signs: Last Vital Signs Pulse 74 03/08/25 14:23 BP 150/82 H 03/08/25 14:23 Pulse Ox 99 03/08/25 14:23 Oxygen Delivery Method Room Air 03/08/25 14:23 BMI result Body Mass Index 36.0 Const General: no acute distress and alert Nutritional Appearance: obese Orientation/consciousness: Other orientation findings ( oriented) HEENT Head: Yes atraumatic Eyes General: appearance normal, both eyes and all related structures Sclerae: sclerae normal EOM: EOMs intact bilaterally Neck Neck: Yes supple Lymphatic: no lymphadenopathy noted Resp Effort & Inspection: normal respiratory effort and no use of accessory muscles Auscultation: clear to auscultation bilaterally Cardio Rate: regular rate Rhythm: regular rhythm Heart sounds: no gallops, no murmurs and no rubs Skin General skin exam: other ( warm) Extrem General: No clubbing, No cyanosis and No edema Assessment & Plan Assessment & Plan (1) Reactive airway disease: Code(s): J45.909 - Unspecified asthma, uncomplicated Category: Medical Plan: Well controlled on current regimen Breo, Incruse, and albuterol MDI/nebs. Continue current regimen. (2) Personal history of tobacco use: Code(s): Z87.891 - Personal history of nicotine dependence Category: Medical Plan: Results of CT chest from February of 2025 reviewed, no worrisome nodules noted. Continue with yearly screening, next in February of 2026. (3) Lower extremity edema: Code(s): R60.0 - Localized edema Category: Medical Plan: Well controlled on current diuretic regimen of Lasix 20 mg daily. Continue current regimen. (4) Sleep apnea: Code(s): G47.30 - Sleep apnea, unspecified Category: Medical Plan: Improving compliance and control on current CPAP therapy. Continue CPAP therapy. Coding Level of Care Code Complex visit Add On G2211 Diagnoses Reactive airway disease J45.909 Personal history of tobacco use Z87.891 Lower extremity edema R60.0 Sleep apnea G47.30
[2025-03-08 14:23] VITALS: BP 150/82; PULSE 74; O2SAT 99; BMI 36.0
--- OUTSIDE RECORDS SUMMARY | 2025-03-08 19:45 | XMS_ITS | Encounter Summary ---
Author Organization [employer] Address [address] [place] [address] Care Team Providers Care Homogenizer Operator Name Role Phone Unavailable Primary Care Provider Unavailabl e Reason for Visit * Reason Onset Date Comments rs no show appt 04/13/2024 Encounter Details Date Type Department Care Team ([facility] st Contact Info) Description 04/13/2024 Telephone [facility] [address] [place] [address] Ruel Suresh rs no show appt Social [...]
--- OUTSIDE RECORDS SUMMARY | 2025-03-08 19:45 | XMS_ITS | Clinical Summary ---
Author Organization [employer] Address [address] [place] [address] Care Team Providers Care Lidder Name Role Phone Unavailable Primary Care Provider [...] by mouth at bedtime. 4 Active Genvoya [phone] MG tablet Take 1 tablet by mouth [...] Maintenance Insurance [facility] STANDARD DENTAL-[facility] [place] [address] [place] [address]
--- OUTSIDE RECORDS SUMMARY | 2025-03-08 19:45 | XMS_ITS | Encounter Summary ---
Author Organization [employer] Address [address] [facility] [facility] [address] [place] [address] Care Team Providers Care Ditching Machine Operating Engineer Name Role Phone Unavailable Primary Care [...]
--- OUTSIDE RECORDS SUMMARY | 2025-03-08 19:45 | XMS_ITS | Patient Health Record ---
Author Organization Alec Strickland III, MD Address [address] [place] [address] Care Team Providers Care Analyst Food [employer] Beverage Name Role Phone Kesha PRECIADO, [facility] Primary Care Provider Laine Strickland III, Dr. Micheal Unavailable Allergies Allergen (clinical drug ingredient) Drug/Non [...] Problem Status W/U Status Risk Notes Problem 3226610 Former smoker (Z87.891) Active confirmed She has a plan for prevention of relapse in times of stress. I have counseled her about ongoing smoking cessation. Problem 80011914 Hyperlipidemia (E78.5) Active confirmed A fasting lipid profile is not available and has been requested from primary care. Problem 439441426 Asthma (J45.909) Active confirmed It is pollen season and she has occasional wheezing. This is controlled with her medications. Problem 11754885 Hepatitis C (B19.20) Active confirmed There is no sig n at this time of ongoing active infection. Problem 246678205 Anemia (D64.9) Active confirmed Her hematocrit is 34% with a normal mean cell volume. This is likely the anemia of chronic disease and will be observed. Problem 581329362 Thrombocytopenia (D69.6) Active confirmed Her platelet count is now normal at 174,000. The value will be observed. Problem 97602378 Human immunodeficiency virus [HIV] disease (B20) Active confirmed She has not developed any recent infections or HIV related neoplasms. She is compliant with the recommendations of infectious disease. The viral load is well controlled. Problem 944571116 Lobular carcinom a in situ of right breast (D05.01) Active confirmed There is no sign of recurrent disease. She is due for mammography and a study has been ordered. 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 It was thought to be reactive. Problem 09451623 Essential hypertension (I10) Active confirmed Her blood pressure has been normal. She was referred back to primary care for measurement. Problem 61553860 Depressive disorder, not elsewhere classified (F32.9) Active confirmed Her depre ssion is stable and well controlled and she is compliant with her medication. Problem 534398259 Obesity (BMI 35.0-39.9 without comorbidity) (E66.01) Active confirmed Her body mass index is 29 and I have recommended regular exercise and weight reduction through a diet restricted in calories fat in sodium. She has lost six pounds since her last visit. Problem 18672228 Sleep apnea (G47.30) Active confirmed She has been treated for this and denies any daytime somnolence. No additional therapy is necessary. She says she has been compliant with treatment Problem 128210590 H/O carpal tunne l syndrome (Z86.69) Active confirmed She has mi ld symptoms of neuropathy in her hands but these are mild and she is conducting all the activities of daily life without impairment. Problem 127861870 Chronic kidney disease, stage I (N18.1) Active confirmed Her most recent available renal functions are normal. These will be followed carefully. On June 08, 2021. The BUN was 18, creatinine was normal. Problem 57757615 Hepatitis B (B19.10) Active confirmed There is [...] Date MEDICAID [place] [address] [place], [place] [id number] America Bower Self - patient is the [...]
== END 2025-03-08 14:44 | disposition home or self-care (01) ==
LOC: HO.HPS 14:21
PROVIDERS: PCP Internal Medicine; Visit Provider Internal Medicine Pulmonary Disease
DX: J45.909 Unspecified asthma, uncomplicated (principal); Z87.891 Personal history of nicotine dependence; R60.0 Localized edema; G47.30 Sleep apnea, unspecified
CPT/HCPCS: 99213

== ENCOUNTER → 2025-03-08 14:21 | Outpatient (BNVA) | payer MEDICAID, SELFPAY | PROVIDERS: PCP Internal Medicine; Visit Provider Internal Medicine Pulmonary Disease | DX: J45.909 Unspecified asthma, uncomplicated (principal); R60.0 Localized edema; G47.30 Sleep apnea, unspecified; Z87.891 Personal history of nicotine dependence | CPT/HCPCS: 99212 ==